=== PATIENT | female | born 1945 | race Caucasian/White ===

== ENCOUNTER 2017-06-26 14:12 | Emergency (ER) | payer MEDICARE, MEDICAID, SELFPAY ==
[2017-06-26 14:13] VITALS: BP 134/67; PULSE 72; RESP 18; TEMP 36.1; O2SAT 99; BMI 31.8
--- NOTE | 2017-06-26 14:55 | EKG12_ITS ---
Test Reason : CP Blood Pressure : / mmHG Vent. Rate : 075 BPM Atrial Rate : 075 BPM P-R Int : 112 ms QRS Dur : 090 ms QT Int : 380 ms P-R-T Axes : 011 027 052 degrees QTc Int : 424 ms Normal sinus rhythm Normal ECG When compared with ECG of 28-FEB-2017 13:09, No significant change was found Confirmed by DORIS BALDERRAMA, RHONA ([id number]), dictionary editor MARS CUELLO ([id number]) on 07/05/2017 2:39:54 PM Referred By: DODIE/JENN Confirmed By:RHONA GEORGE MD
--- NOTE | 2017-06-26 14:55 | RAD_ITS ---
STUDY: X-RAY CHEST REASON FOR EXAM: Female, 71 years old. Right-sided chest pain. Cough. TECHNIQUE: PA and lateral views of the chest. COMPARISON: None. FINDINGS: EKG electrodes are seen. Mild elevation of the right hemidiaphragm. There is no demonstrated pleural abnormality. Normal size heart. Normal mediastinum and mark. Normal visualized pulmonary arteries. Normal visualized aortic arch and descending thoracic aorta. There is demineralization of the osseous structures. Normal visualized ribs, clavicles, and shoulders. There is no demonstrated abnormality of the visualized soft tissue structures of the upper abdomen. RAD/Chest PA and Lateral IMPRESSION: No acute abnormality is seen. Electronically Signed: Fortino Rangel MD at 15:23 EST Tel [phone], Service support ,
[2017-06-26 15:17] LABS: Absolute Lymphocyte Count 2.71 X10^3/ul (0.83-4.51); Absolute Neutrophil Count 8.6 X10^3/uL (2.0-7.7); Basophil# 0.01 X10^3/uL; Basophil% 0.1 % (0-1); Eosinophil# 0.23 X10^3/uL; Eosinophils% 1.9 % (0-5); Hematocrit 39.1 % (37-47); Hemoglobin 12.3 g/dl (12.0-15.0); Lymphocyte # 2.71 X10^3/ul (4.0); Lymphocyte % 22.5 % (19-41); Mean Corp Hgb Conc 31.5 g/gl (32-36); Mean Corpuscular Hgb 26.1 pg (27.0-32.0); Mean Platelet Vol. 10.5 fl (6.2-12.0); Monocyte# 0.39 X10^3/uL; Monocyte% 3.2 % (0-10); Neutrophil # 8.59 X10^3/uL (2.7-7.7); Neutrophil % 71.6 % (47-70); POSITIVE COUNT NO; POSITIVE DIFFERENTIAL NO; POSITIVE MORPHOLOGY NO; Platelet Count 338 K/mm3 (150-450); RBC Distribution Width CV 15.3 % (11.6-14.6); RBC Distribution Width SD 46.4 fl (35.1-43.9); Red Blood Count 4.71 M/mm3 (4.2-5.4)
[2017-06-26 15:26] LABS: Anion Gap 6 (5-15); BUN 43 mg/dL (7-18); BUN/Creat Ratio 29.3 RATIO (10-20); Calcium,Total 9.2 mg/dL (8.5-10.1); Chloride 103 mmol/L (98-107); Creatinine, Serum 1.47 mg/dL (0.55-1.02); EST Glomerular Filtration Rate 37 mL/min (>60); Est Glom Filt Rate - Afr Amer 45 mL/min (>60); Estimated Creatinine Clearance 26.87 ml/min; Glucose 70 mg/dL (74-106); Potassium 3.6 mmol/L (3.5-5.1); Sodium Level 138 mmol/L (136-145)
--- NOTE | 2017-06-26 15:44 | ED.DCSUM_ITS ---
- ER Visit Summary Date of Service: 06/26/17 Chief Complaint: Constant right-sided chest pain, dyspnea, cough or 1-2 weeks. History of Present Illness: The patient is a 71 F who states she is gotten no better in spite of treatment. She complains of continuous right-sided chest pain that has a pleuritic component for the past 2 days. She does have a cough. Her cough is productive. She has never smoked. She does complain of rhinorrhea, nasal congestion sore throat. She denies any leg pain, swelling or discoloration. She denies history of cardiac disease. She does have history of type 1 diabetes, hypertension and GERD. Patient was diagnosed with influenza 3 weeks ago. 2 weeks ago she was diagnosed with bronchitis. She states she is gotten no better. Patient did check her blood sugar yesterday and her blood sugar was 10 5 in the morning 130 2 in the evening. She has no symptoms of hyperglycemia i.e. polyuria, polydipsia, nocturia or polyphagia. Physical Examination: Elderly woman who appears ill but not toxic. Head is atraumatic normocephalic. Pupils are equal round reactive. Extraocular muscles are intact. TMs are pearly white with landmarks noted. Nares patent with clear drainage. Posterior pharynx without erythema or exudate. Uvula is midline. There is no dysphonia or dysphasia. Trachea is midline. There is no stridor with auscultation of the neck. Heart is regular without murmur, gallop or rub. S1 and S2 are normal. Lungs are clear to auscultation with good movement of air bilaterally. Abdomen is soft nontender with no palpable subtle mass abdominal bruit. There is no asymmetry, swelling, discoloration, leg vein distention, palpable cords or tenderness along the distribution of the deep venous system. Patient did report pain to palpation right leg. She states this is a chronic issue secondary to her back surgery. She also complained of anterior left knee pain which she reports is secondary to total knee arthroplasty many years ago as well. Test Results: EKG was obtained per nursing protocol reveals a sinus rhythm and rate of 75 and is normal. Two-view chest x-ray reveals minimal chronic changes. Cardiac silhouette is normal.'s notes congestive heart failure. There is no infiltrate or effusion. White count is slightly elevated 12.0 thousand with 72 segs and no bands. Electrode panel marked for glucose of 70, BUN 43 and creatinine 1.47. Creatinine on March 02, 2015 was 1.25. Troponin with 48 hours of continuous pain is 0.02, which is negative Emergency Department Course and Treatment: Since patient is diabetic a BMP was obtained to assess blood sugar as well as BUN and creatinine. CBC was obtained to assess for anemia since she complains of dyspnea. EKG to rule out cardiac ischemia since she is elderly with history of diabetes and hypertension. She has an atypical presentation. Because she reports cough for 2 weeks chest x- ray was obtained to evaluate for infiltrate. Treatment Plan: Continue symptomatic treatment and follow-up with PCP if not better in 1-2 weeks Disposition: Discharge to home Impression: 1. Viral upper respiratory infection with recent diagnosis of influenza 2. Right sided chest pain 3. History of type 1 diabetes 4. History of hypertension 5. History of GERD 6. History of diabetic neuropathy This note was generated with [employer] dictation software. It may contain incorrect words, spelling, and punctuation that were not noted in review of the chart prior to signing ED Disposition - Plan for ED Patient: Disposition: Home or Assisted Living Chief Complaint: Weakness Instructions: ED Chest Pain NonCardiac Referrals: Juhi De Jesus MD [Primary Care Provider] - 10-14 Days if not better
[2017-06-26 15:56] VITALS: BP 118/74; PULSE 70; RESP 16; O2SAT 100
== END 2017-06-26 15:57 | disposition home or self-care (01) ==
PROVIDERS: Emergency Provider Emergency Medicine; Family Provider Family Medicine; PCP Family Medicine
DX: J06.9 Acute upper respiratory infection, unspecified (principal); R07.89 Other chest pain; I10 Essential (primary) hypertension; K21.9 Gastro-esophageal reflux disease without esophagitis; E10.40 Type 1 diabetes mellitus with diabetic neuropathy, unspecified; Z79.4 Long term (current) use of insulin; Z79.82 Long term (current) use of aspirin; Z79.899 Other long term (current) drug therapy; Z87.09 Personal history of other diseases of the respiratory system
CPT/HCPCS: 71046; 80048; 84484; 85025; 93005; 99285

== ENCOUNTER → 2017-07-14 14:17 | Outpatient (CLI) | payer MEDICARE, MEDICAID, SELFPAY ==
[2017-07-14 16:05] LABS: Hemoglobin A1c 8.1 % (4.2-6.3); Microalbumin,Random Urine 7.9 mg/L (NO RANGE EST.); Microalbumin:Creatinine Ratio 5.6 mg/g CRE (<30 mg/g CRE)
[2017-07-14 16:36] LABS: ALB/GLOB Ratio 0.9 RATIO (0.9-2.4); AST(SGOT) 51 U/L (15-37); Alanine Aminotransfer ALT/SGPT 37 U/L (13-56); Albumin, Serum 3.6 g/dL (3.2-5.0); Alkaline Phosphatase 110 U/L (45-117); Anion Gap 7 (5-15); BUN 18 mg/dL (7-18); BUN/Creat Ratio 15.8 RATIO (10-20); Calcium,Total 8.7 mg/dL (8.5-10.1); Chloride 106 mmol/L (98-107); Cholesterol 220 mg/dL (200); Creatinine, Serum 1.14 mg/dL (0.55-1.02); EST Glomerular Filtration Rate 50 mL/min (>60); Est Glom Filt Rate - Afr Amer 60 mL/min (>60); Glucose 112 mg/dL (74-106); High Density Lipoprotein 39 mg/dL; Potassium 3.7 mmol/L (3.5-5.1); Protein, Total 7.6 g/dL (6.4-8.2); Sodium Level 141 mmol/L (136-145); Thyroid Stim Hormone (TSH) 1.11 uIU/mL (0.358-3.74); Triglycerides 817 mg/dL
== END ==
PROVIDERS: Family Provider Family Medicine; PCP Family Medicine; Visit Provider Family Medicine
DX: E11.9 Type 2 diabetes mellitus without complications (principal); E04.9 Nontoxic goiter, unspecified
CPT/HCPCS: 36415; 80053; 80061; 82043; 82570; 83036; 84443

== ENCOUNTER 2017-10-18 20:41 | Emergency (ER) | payer MEDICARE, MEDICAID, SELFPAY ==
[2017-10-18 20:42] VITALS: BP 146/77; PULSE 75; RESP 16; TEMP 36.7; O2SAT 98; BMI 31.5
--- NOTE | 2017-10-18 21:48 | US_ITS ---
STUDY: VENOUS DOPPLER ULTRASOUND - RIGHT LOWER EXTREMITY REASON FOR EXAM: Female, 72 years old. Posterior lateral knee pain. TECHNIQUE: Ultrasound evaluation of the deep vein system to include mitchell-scale imaging and compression was performed. Mitchell-scale imaging and Doppler sonographic evaluation, including duplex spectral analysis and qualitative color flow sonography, was performed. COMPARISON: None. FINDINGS: Common Femoral Vein: Normal compression, spontaneity and augmentation. Normal color Doppler. Common Femoral Vein/Greater Saphenous Junction: Normal compression without internal echoes. Deep Femoral Vein: Not visualized. Femoral Proximal: Normal compression without internal echoes. Femoral Middle: Normal compression, spontaneity and augmentation. Normal color Doppler. Femoral Distal: Normal compression without internal echoes. Popliteal Vein: Normal compression, spontaneity and augmentation. Normal color Doppler. Posterior Tibial Vein: Normal compression without internal echoes. Peroneal Vein: Normal compression without internal echoes. Within the posterior right knee is anechoic region measuring 1.7 x 3.3 x 2.0 cm with Lopez's cyst not excluded. US/Venous Duplex Imag/Limited/Uni IMPRESSION: 1. No evidence of deep venous thrombosis. 2. Hypoechoic region of the posterior knee, clinically correlate for Lopez's cyst. Electronically Signed: Terry Cho DO at 22:31 EDT , Service support ,
[2017-10-18] MEDS: HYDROcodone Bitartrate/Apap 5/325 Tablet PO ×2 (21:49→23:31)
--- NOTE | 2017-10-18 22:47 | ED.VISSUMM ---
- ER Visit Summary Date of Service: 10/18/17 Chief Complaint: Leg pain History of Present Illness: The patient is a 72 F with right leg pain for the last 2 weeks, significant a worse tonight. Patient states she initially had a swollen area on the lateral side of her right knee. Pain is now behind the right knee and up into the medial distal thigh. She has chronic nerve pain in her right leg and typically takes Lyrica. She has chronic right foot drop. She has recurrent gout in her right foot as well. Physical Examination: Vital signs are unremarkable. Patient's lying in bed no acute distress. Head and neck examination is unremarkable. Heart is regular rate and rhythm. Lung sounds are clear. Abdomen is soft nontender. Right lower extremity examination reveals tenderness of the medial distal right thigh. She also has tenderness of the posterior right knee by do not palpate any masses. She has palpable distal pulses. She has very minimal erythema at the first MTP joint of the right foot. Test Results: Venous ultrasound of the right leg reveals evidence of a Lopez's cyst but no evidence of DVT. Emergency Department Course and Treatment: Patient was given 1 tab of [place] here. She be given a short course of prednisone and be written for a short course of [place]. She has an appointment with Dr. Gannon early next week. Treatment Plan: [] Disposition: Discharge Impression: Lopez's cyst right knee This note was generated with [employer] dictation software. It may contain incorrect words, spelling, and punctuation that were not noted in review of the chart prior to signing ED Disposition - Plan for ED Patient: Chief Complaint: Lower Extremity Injury Referrals: Марина Weir MD [Primary Care Provider] -
--- NOTE | 2017-10-18 22:48 | ED.DEP ---
ED Disposition - Plan for ED Patient: Disposition: Home or Assisted Living Chief Complaint: Lower Extremity Injury Instructions: ED Cyst Lopez Prescriptions: Hydrocodone Bitart/Apap 5-325 [[place] 5MG-325MG] 1 tablet PO Q6H PRN PRN 3 Days #10 tablet PRN Reason: Pain Prednisone [Deltasone] 60 mg PO DAILY #15 tab Referrals: Марина Weir MD [Primary Care Provider] - Smith Gannon MD [STAFF PHYSICIAN] - Keep Aaron appointment
--- NOTE | 2017-10-18 22:52 | DCINST.ED_ITS ---
ED Disposition - Plan for ED Patient: Disposition: Home or Assisted Living Chief Complaint: Lower Extremity Injury Instructions: ED Cyst Lopez Prescriptions: Hydrocodone Bitart/Apap 5-325 [[place] 5MG-325MG] 1 tablet PO Q6H PRN PRN 3 Days # 10 tablet PRN Reason: Pain Prednisone [Deltasone] 60 mg PO DAILY #15 tab Referrals: Марина Weir MD [Primary Care Provider] - Smith Gannon MD [STAFF PHYSICIAN] - Keep Aaron appointment
[2017-10-18 23:26] VITALS: BP 130/58; PULSE 64; RESP 18; O2SAT 98
[2017-10-18] MEDS: predniSONE 20 MG Tablet 60 MG PO (23:30)
== END 2017-10-18 23:33 | disposition home or self-care (01) ==
PROVIDERS: Emergency Provider Emergency Medicine; Family Provider Family Medicine; PCP Family Medicine
DX: M71.21 Synovial cyst of popliteal space [Baker], right knee (principal); M10.9 Gout, unspecified; I12.9 Hypertensive chronic kidney disease with stage 1 through stage 4 chronic kidney disease, or unspecified chronic kidney disease; E11.22 Type 2 diabetes mellitus with diabetic chronic kidney disease; N18.9 Chronic kidney disease, unspecified; Z79.82 Long term (current) use of aspirin; Z79.4 Long term (current) use of insulin; Z79.899 Other long term (current) drug therapy
CPT/HCPCS: 93971; 99283

== ENCOUNTER → 2017-10-25 12:13 | Outpatient (CLI) | payer MEDICARE, MEDICAID, SELFPAY ==
[2017-10-25 13:31] LABS: Hemoglobin A1c 8.5 % (4.2-6.3); Vitamin B12 602 pg/mL (211-911)
[2017-10-25 13:33] LABS: Rheumatoid Factor < 10.0 IU/mL (<15); Thyroid Stim Hormone (TSH) 1.33 uIU/mL (0.358-3.74)
[2017-10-26 12:09] LABS: SJOGREN'S Anti-SS-A test < 0.2 AI (0.0-0.9); SJOGREN'S Anti-SS-B test < 0.2 AI (0.0-0.9)
[2017-10-26 13:49] LABS: ANTINUCLEAR ANTIBODIES DIRECT Negative (Negative)
[2017-10-27 16:10] LABS: Albumin 3.7 g/dL (2.9-4.4); Alpha-1-Globulin, Ur 3.4 % (.); Alpha-1-Globulins 0.2 g/dL (0.0-0.4); Alpha-2-Globulins 0.8 g/dL (0.4-1.0); Beta Globulin, Ur 37.3 % (.); Gamma Globulin 0.6 g/dL (0.4-1.8); Gamma Globulin, Ur 21.3 % (.); Immunoglobulin A 222 mg/dL (64-422); Immunoglobulin G 570 mg/dL (700-1600); Immunoglobulin M 55 mg/dL (26-217); M-Spike, Ur % Not Observed % (Not Observed); PROEL- TOTAL PROTEIN 6.3 g/dL (6.0-8.5); Total Protein, Ur 10.3 mg/dL (Not Estab.)
[2017-10-28 09:35] LABS: Cytoplasmic Ab (C-ANCA) <1:20 titer (Neg:<1:20); Perinuclear Ab (P-ANCA) <1:20 titer (Neg:<1:20)
== END ==
PROVIDERS: Family Provider Family Medicine; PCP Family Medicine; Visit Provider Psychiatry & Neurology Neurology
DX: E11.40 Type 2 diabetes mellitus with diabetic neuropathy, unspecified (principal)
CPT/HCPCS: 36415; 82607; 82784; 83036; 84165; 84166; 84443; 86038; 86235; 86256; 86334; 86335; 86431

== ENCOUNTER 2017-10-30 12:14 | Observation (INO) | payer MEDICARE, MEDICAID, SELFPAY ==
[2017-10-30 12:14] VITALS: BP 166/91; PULSE 103; RESP 18; TEMP 36.4; O2SAT 99; BMI 31.2
--- NOTE | 2017-10-30 12:49 | EKG12_ITS ---
Test Reason : Blood Pressure : / mmHG Vent. Rate : 084 BPM Atrial Rate : 084 BPM P-R Int : 130 ms QRS Dur : 080 ms QT Int : 362 ms P-R-T Axes : 044 014 067 degrees QTc Int : 427 ms Normal sinus rhythm Normal ECG Confirmed by RHONA GEORGE MD ([id number]), telegraph editor EZRA ERVIN ([id number]) on 11/02/2017 4:23:17 PM Referred By: Armando North Confirmed By:RHONA GEORGE MD
--- NOTE | 2017-10-30 12:53 | ED.DCSUM_ITS ---
- ER Visit Summary Date of Service: 10/30/17 Chief Complaint: Right foot pain, generalized weakness History of Present Illness: The patient is a 72 F presenting with right foot pain. She states this has been a chronic problem but has been worse over the past several days. She saw Dr. North on Monday. She was changed from Lyrica to Cymbalta. This has not improved her pain. She has a history of gout and right foot nerve damage secondary to previous back surgery. She has an appointment with pain management tomorrow. She was seen in the ED for this recently and was given [place]. She has run out of that prescription but she has a prescription waiting for her at the pharmacy that was written by her primary care physician. She has been taking Tylenol at home. She denies fever. She complains of nausea and generally not feeling well. She complains of dizziness and near syncope. She denies chest pain or shortness of breath. Physical Examination: Vitals are stable. Patient is afebrile. Alert no acute distress. HEENT exam is unremarkable. Neck is supple. Lungs are clear and equal bilaterally. Heart is regular rate and rhythm. Abdomen is soft nontender nondistended. Extremities diffuse right midfoot tenderness and tenderness over 1st MTP with no erythema or warmth. Palpable pulses. Skin is warm and dry. No focal neurologic deficit. Remainder of exam is unremarkable. Emergency Department Course and Treatment: Patient is given morphine, Zofran. CBC unremarkable. Chemistries show BUN 34, creatinine 2.16. This is elevated from 1.14. previously. Urinalysis is unremarkable. Troponin 0.039. She is given IV fluids. Discussed with the hospitalist for admission. Disposition: Admission Impression: CHELI, chronic right foot pain This note was generated with [employer] dictation software. It may contain incorrect words, spelling, and punctuation that were not noted in review of the chart prior to signing ED Disposition - Plan for ED Patient: Chief Complaint: General Illness Referrals: Марина Weir MD [Primary Care Provider] -
--- NOTE | 2017-10-30 12:59 | PCA ---
NO OLD EKG
[2017-10-30] MEDS: Ondansetron 4 MG/2 ML Vial IV (13:08)
[2017-10-30] MEDS: Morphine 4 MG/ML Syringe IV ×2 (13:09→21:26)
[2017-10-30 13:20] LABS: Bacteria 0 SEEN /hpf (None Seen); Mucous, Urine 0 SEEN /hpf (<or=2+); Red Blood Cells-Urine 0 SEEN /hpf (0-5)
[2017-10-30 13:23] LABS: Absolute Lymphocyte Count 3.27 X10^3/ul (0.83-4.51); Absolute Neutrophil Count 6.5 X10^3/uL (2.0-7.7); Basophil# 0.03 X10^3/uL; Basophil% 0.3 % (0-1); Color, Urine Yellow (Yellow); Eosinophils% 1.8 % (0-5); Glucose, Dipstick Normal (Normal); Hematocrit 45.8 % (37-47); Hemoglobin 14.4 g/dl (12.0-15.0); Ketone-Dipstick 5 mg/dl (Negative); Leukocyte Esterase-Dipstick 100 /ul (Negative); Lymphocyte # 3.27 X10^3/ul (4.0); Lymphocyte % 30.1 % (19-41); Mean Corp Hgb Conc 31.4 g/gl (32-36); Mean Corpuscular Hgb 26.2 pg (27.0-32.0); Mean Corpuscular Volume 83.3 fL (81-99); Mean Platelet Vol. 11.4 fl (6.2-12.0); Monocyte# 0.83 X10^3/uL; Monocyte% 7.6 % (0-10); Neutrophil # 6.51 X10^3/uL (2.7-7.7); Neutrophil % 60.1 % (47-70); Nitrite-Dipstick Negative (Negative); Occult Blood-Urine Negative /ul (Negative); Platelet Count 294 K/mm3 (150-450); Protein-Dipstick 15 mg/dl (Negative); RBC Distribution Width CV 15.6 % (11.6-14.6); RBC Distribution Width SD 47.1 fl (35.1-43.9); Urine Clarity Cloudy (Clear); Urine Urobilinogen 1 mg/dl (Normal); White Blood Count 10.9 K/mm3 (4.4-11.0)
[2017-10-30 13:24] LABS: POSITIVE COUNT NO; POSITIVE DIFFERENTIAL NO; POSITIVE MORPHOLOGY NO; Urine Bilirubin Dipstick 1 mg/dL (Negative)
[2017-10-30 13:31] LABS: Hyaline Cast 0-5 SEEN /lpf (0-5); Squamous Epithelial Cells - UA 0-5 SEEN /hpf (5-10); Transitional Epithelial - Ur 0-5 SEEN /hpf (0-5); White Blood Cells 0-5 SEEN /hpf (0-5)
[2017-10-30 13:39] LABS: Anion Gap 10 (5-15); BUN 34 mg/dL (7-18); BUN/Creat Ratio 15.7 RATIO (10-20); Calcium,Total 10.2 mg/dL (8.5-10.1); Chloride 99 mmol/L (98-107); Creatinine, Serum 2.16 mg/dL (0.55-1.02); EST Glomerular Filtration Rate 24 mL/min (>60); Est Glom Filt Rate - Afr Amer 29 mL/min (>60); Estimated Creatinine Clearance 18.03 ml/min; Glucose 79 mg/dL (74-106); Potassium 3.5 mmol/L (3.5-5.1); Sodium Level 139 mmol/L (136-145)
[2017-10-30] MEDS: 0.9% Normal Saline 1,000 ML 999 ML IV (14:31)
[2017-10-30 16:21] VITALS: BMI 31.5
[2017-10-30 16:30] VITALS: BMI 31.5
[2017-10-30] MEDS: 0.9% Normal Saline 1,000 ML 125 ML IV (16:56)
--- NOTE | 2017-10-30 16:59 | PCM.HP.STD ---
Problem List (1) Osteoporosis Status: Chronic Qualifiers: Comment: Patient discontinued her biphosphanate Does not explain why. Wishes to discuss diabetes and thyroid today. (2) Controlled type 2 diabetes mellitus with insulin therapy Status: Chronic Comment: Reports long standing control until recent illness. Today she reports she used to use her sliding scale. We discussed using this anytime she become ill to avoid her having high BG. Today her Bg have extrem varied numbers. She does mention she goes to exercise 3 times a week which probably causes her low BG days. She also has two different breakfast regimens. One would need more insulin than the other as it contins fruit and the other is mostly protin. We discussed these issues and she is enc to make insulin adjustment for exercise and diet changes. (3) Thyroid goiter Status: Chronic Comment: Patient has known thyroid goiter . Has multiple nodules and I will refer to surgeon (4) Hyperlipemia Status: Chronic (5) GERD (gastroesophageal reflux disease) Status: Chronic (6) Gout Status: Chronic (7) HTN (hypertension) Status: Chronic History of Present Illness Date of Admission: 10/30/17 Chief Complaint: Right foot pain, weakness. The patient is a 72 year old F who presents with weakness, worsening since this past Monday with associated lightheadedness. She denies recent illness. Denies chest pain, shortness of breath. States lightheadedness is worse with standing. Denies fever, chills. Complains of ongoing right great toe pain which has been occurring for the past 2 years. She denies injury to right foot. She has seen both podiatry and neurology as outpatient for this. Patient denies nausea, vomiting, diarrhea. Denies syncope or presyncope. Patient denies falls at home. Her past medical history includes type 2 diabetes mellitus, hypertension, GERD, hyperlipidemia, gout, thyroid goiter. Past Medical History Past Medical History (Chronic Problems): Chronic Problems (Last Reviewed 09/28/17 @ 09:53 by Marysol Brown) Hyperlipemia (Chronic) GERD (gastroesophageal reflux disease) (Chronic) Gout (Chronic) HTN (hypertension) (Chronic) Osteoporosis (Chronic) Patient discontinued her biphosphanate Does not explain why. Wishes to discuss diabetes and thyroid today. Controlled type 2 diabetes mellitus with insulin therapy (Chronic) Reports long standing control until recent illness. Today she reports she used to use her sliding scale. We discussed using this anytime she become ill to avoid her having high BG. Today her Bg have extrem varied numbers. She does mention she goes to exercise 3 times a week which probably causes her low BG days. She also has two different breakfast regimens. One would need more insulin than the other as it contins fruit and the other is mostly protin. We discussed these issues and she is enc to make insulin adjustment for exercise and diet changes. Thyroid goiter (Chronic) Patient has known thyroid goiter . Has multiple nodules and I will refer to surgeon Medical History: Medical History (Last Reviewed 09/28/17 @ 09:53 by Marysol Brown) Arthritis M19.90 Back problem M53.9 Carpal tunnel syndrome G56.00 Cataracts, bilateral H26.9 Chronic renal insufficiency N18.9 Diabetes E11.9 Dx : 2009 Last exacerbation : DKA : x1 Hypoglycemic episode : never ER visit : x1 Goiter E04.9 Gout M10.9 IBS (irritable bowel syndrome) K58.9 Neuropathy G62.9 Seasonal allergies J30.2 cataract surgery HTN (hypertension) I10 Allergies linagliptin [From Tradjenta] Allergy (Verified 10/30/17 12:16) Hives oxycodone [From OxyContin] Allergy (Verified 10/30/17 12:16) Rash Home Medications: Ambulatory Orders Medication Instructions Recorded Benazepril/Hydrochlorothiazide 1 tablet PO DAILY 02/21/17 [Benazepril-Hctz 20-25 mg Tab] Cholecalciferol (VIT D3) [Vitamin 5,000 unit PO DAILY 02/21/17 D3] Omeprazole [Prilosec] 1 capsule PO DAILY 02/21/17 allopurinol 100 mg tablet 1 tab PO BID tab 08/15/17 ergocalciferol (vitamin D2) 50,000 1 cap PO QWEEK 08/15/17 unit capsule insulin detemir (U-100) 100 40 unit SC QHS ml 08/15/17 unit/mL (3 mL) subcutaneous pen insulin lispro (U-100) 100 unit/mL See Label Instructions SC TID ml 08/15/17 subcutaneous pen omega-3 fatty acids 1,000 mg 1 cap PO QDAY 08/15/17 capsule potassium 99 mg tablet 99 mg PO QDAY 08/15/17 aspirin 81 mg tablet,delayed 2 tab PO BID tab 09/28/17 release Blood Sugar Diagnostic [Prodigy No 0 applic .ROUTE .MEDSUPPLY 10/18/17 Coding strips] Blood-Glucose Meter [Prodigy Voice 0 applic .ROUTE .MEDSUPPLY 10/18/17 Glucose Meter kit] Hydrocodone Bitart/Apap 5-325 1 tablet PO Q6H PRN PRN 3 Days #10 10/18/17 [[place] 5MG-325MG] tablet Caltrate Gummy Bites 1 tablet PO DAILY 10/30/17 Duloxetine Hcl [Cymbalta] 1 tablet PO DAILY 10/30/17 Folic Acid 1 tablet PO DAILY 10/30/17 Furosemide [Lasix] 1 tablet PO DAILY 10/30/17 Niacin [Niaspan] 1 tablet PO QHS 10/30/17 Surgical History: Surgical History (Last Reviewed 10/30/17 @ 17:38 by ANA Whitmore) H/O tubal ligation Z98.51 History of back surgery Z98.890 Hx of appendectomy Z90.49 Hx of cholecystectomy Z90.49 S/P carpal tunnel release Z98.890 S/P knee replacement Z96.659 Surgical History: cataract Psychiatric History: No 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 hx [employer] History: No pertinent [employer] history Lives: Alone Smoking Status: Never smoker Alcohol: None Drugs: None - *Family History Maternal Family History: Family History (Last Reviewed 10/30/17 @ 17:40 by ANA Whitmore) Unknown Alcoholism Arthritis Asthma Depression Hypertension High cholesterol Kidney disease Severe allergy Diabetes Paternal Family History: Family History (Last Reviewed 10/30/17 @ 17:40 by ANA Whitmore) Unknown Alcoholism Arthritis Asthma Depression Hypertension High cholesterol Kidney disease Severe allergy Diabetes Review of Systems Constitutional: Reports: Weakness. Denies: Chills, Fever, Weight Change HEENT: Denies: Head Aches, Sinus Congestion, Sinus Drainage Cardiovascular: Reports: Light Headedness. Denies: Chest Pain, Edema, Palpitations, Syncope Respiratory: Denies: Cough, Shortness of breath at rest, Sputum production Gastrointestinal: Denies: Abdominal Pain, Nausea, Vomiting Genitourinary: Denies: Dysuria Musculoskeletal: Reports: Joint Pain - Right great toe/top of right foot.. Denies: Joint Tenderness Skin: Denies: Rash, Wounds Neurological: Denies: Numbness, Tingling, Focal weakness Psychiatric: Denies: Anxiety, Depression, Homicidal Ideations, Suicidal Ideations Hematologic/ Lymphatic: Denies: Easy Bruising, Easy Bleeding VTE Information - Inpt Only VTE Present on Admission: No VTE Mechan Device Prophylaxis: None VTE Pharm Prophylaxis ordered?: Yes - Physical Exam General: Alert, Oriented x3, Cooperative, No apparent distress HEENT: Atraumatic, PERRLA, EOMI, Normocephalic Neck: Supple, No JVD, Negative Carotid Bruits Lungs: Clear to auscultation, Normal air movement Cardiovascular: Regular rate, Regular Rhythm, Normal S1, Normal S2, No murmurs Abdomen: Bowel Sounds Present, Soft, Non Tender, Non-Distended Extremities: No clubbing, No cyanosis, No edema, Capillary Refill Less than 3 Seconds Skin: No rashes, No breakdown Musculoskeletal: No Tenderness to Palpation of Joints or Extremities Neurological: Cranial nerves II-XII grossly intact, Neuro grossly intact Psych/Mental Status: Normal Affect, Appropriate Vital Signs Temp Pulse Resp BP Pulse Ox 97.6 F L 103 H 18 166/91 H 99 10/30/17 12:14 10/30/17 12:14 10/30/17 12:14 10/30/17 12:14 10/30/17 12:14 Weight: 76.9 kg Body Mass Index (BMI) 31.5 Assessment/Plan 1. Acute Kidney Injury on CKD stage III-suspect secondary to dehydration. Trend BMP. IV fluids. 2. Generalized weakness/lightheadedness-suspect secondary to #1. IV fluids. PT/OT. Obtain orthostatic vitals. 3. Right foot pain- appears chronic from records. Following with neurology as outpatient. Discussed with Dr. North. Increase Cymbalta to 60 mg daily. PT/OT. PRN norco for pain. Patient states she has never had an x-ray of the right foot. 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 Obtain x-ray of right foot if no previous imaging. 4. Controlled Type 2 Diabetes Mellitus-hemoglobin A1c 10/25/2017 8.5%. Patient follows with CHAR do. Accu-Cheks before meals at bedtime with sliding scale insulin. 5. Hypertension-stable, continue benazepril/HCTZ regimen. Continue to monitor. 6. Hyperlipidemia-not on statin. Patient takes niacin nightly. 7. GERD-continue PPI. 8. Gout? Questionable- on allopurinol, continue. 9. Thyroid Goiter-TSH 10/25/2017 1.33. 10. Osteoporosis-continue home supplement regimen. DVT prophylaxis-Heparin SC This patient was seen by ANA Whitmore under the supervision of Dr. Waldron.
[2017-10-30 17:06] VITALS: BP 158/81; PULSE 80; RESP 16; TEMP 36.8; O2SAT 97
[2017-10-30] MEDS: Aspirin E.C. 81 MG Tablet 162 MG PO (17:50)
[2017-10-30] MEDS: HYDROcodone Bitartrate/Apap 5/325 Tablet PO (17:50)
[2017-10-30 18:01] LABS: Bedside Glucose 123 mg/dL (70-110)
--- NOTE | 2017-10-30 18:50 | RAD_ITS ---
STUDY: X-RAY - RIGHT FOOT CLINICAL: Female, 72 years old. Pain TECHNIQUE: 3 view(s) of the foot. COMPARISON: None. FINDINGS: Normal talus and tarsal bones. Small plantar calcaneal spur. Normal visualized subtalar, talonavicular, calcaneocuboid, tarsal and tarsometatarsal articulations. Normal metatarsi. Normal metatarsophalangeal joint of the great toe. Normal tibial and fibular sesamoid bones. Normal interphalangeal joint of the great toe. Normal phalanges of the great toe. Normal second through fifth metatarsophalangeal joints. Normal interphalangeal joints and phalanges of the lesser toes. The soft tissue structures are unremarkable. RAD/Foot min 3 Views IMPRESSION: No fracture or dislocation. Small plantar calcaneal spur. Electronically Signed: Shahzad Arreguin DO at 21:14 EDT , Service support ,
[2017-10-30 19:02] VITALS: BP 124/63; BP 127/67; BP 148/54; PULSE 81; PULSE 93; PULSE 99
[2017-10-30 20:43] VITALS: BP 145/58; PULSE 78; RESP 20; TEMP 36.7; O2SAT 96
[2017-10-30] MEDS: Allopurinol 100 MG Tablet PO (21:25)
[2017-10-30] MEDS: Insulin Lispro 100 UNIT/ML INSULN.PEN SC (21:25)
[2017-10-30] MEDS: Heparin Injection (Vial) 5,000 UNIT/ML VIAL 5000 UNIT SC (21:26)
[2017-10-30 22:41] LABS: Bedside Glucose 184 mg/dL (70-110)
[2017-10-31] MEDS: 0.9% Normal Saline 1,000 ML 125 ML IV ×2 (01:10→09:12)
[2017-10-31 01:11] VITALS: BP 133/62; PULSE 73; RESP 16; TEMP 36.7; O2SAT 96
[2017-10-31 06:06] VITALS: BP 104/82; BP 126/66; BP 142/63; PULSE 74; PULSE 78; PULSE 84
[2017-10-31] MEDS: Heparin Injection (Vial) 5,000 UNIT/ML VIAL 5000 UNIT SC ×2 (06:25→14:09)
[2017-10-31 06:47] LABS: Anion Gap 7 (5-15); BUN 31 mg/dL (7-18); BUN/Creat Ratio 19.5 RATIO (10-20); Calcium,Total 8.1 mg/dL (8.5-10.1); Chloride 107 mmol/L (98-107); Creatinine, Serum 1.59 mg/dL (0.55-1.02); EST Glomerular Filtration Rate 34 mL/min (>60); Est Glom Filt Rate - Afr Amer 41 mL/min (>60); Estimated Creatinine Clearance 24.49 ml/min; Glucose 36 mg/dL (74-106); Potassium 3.3 mmol/L (3.5-5.1); Sodium Level 141 mmol/L (136-145)
[2017-10-31 06:50] LABS: Bedside Glucose 51 mg/dL (70-110)
[2017-10-31 06:50] LABS: Bedside Glucose 70 mg/dL (70-110)
[2017-10-31 07:06] LABS: Bedside Glucose 73 mg/dL (70-110)
[2017-10-31 09:04] VITALS: BP 137/47; PULSE 79; RESP 18; TEMP 37.1; O2SAT 98
[2017-10-31] MEDS: Aspirin E.C. 81 MG Tablet 162 MG PO (09:07)
[2017-10-31] MEDS: Lisinopril 20 MG Tablet PO (09:07)
[2017-10-31] MEDS: hydroCHLOROthiazide 25 MG Tablet PO (09:07)
[2017-10-31] MEDS: Allopurinol 100 MG Tablet PO (09:08)
[2017-10-31] MEDS: Pantoprazole Sodium 20 MG Tablet PO (09:08)
[2017-10-31] MEDS: DULoxetine Hcl 30 MG Capsule 60 MG PO (09:08)
[2017-10-31] MEDS: HYDROcodone Bitartrate/Apap 5/325 Tablet PO (09:11)
[2017-10-31 11:20] LABS: Bedside Glucose 176 mg/dL (70-110)
[2017-10-31] MEDS: Insulin Lispro 100 UNIT/ML INSULN.PEN SC (11:22)
[2017-10-31] MEDS: oxyCODONE 5 MG Tablet PO (11:25)
[2017-10-31 14:20] VITALS: BP 115/48; PULSE 71; RESP 16; TEMP 36.8; O2SAT 96
--- NOTE | 2017-10-31 14:56 | DCINST_ITS ---
- Discharge Diagnoses Current Active Problems: Current Active and Chronic Problems (Last Reviewed 09/28/17 @ 09:53 by Marysol Brown) Hyperlipemia (Chronic) GERD (gastroesophageal reflux disease) (Chronic) Gout (Chronic) HTN (hypertension) (Chronic) You will use the following diet at home:: Calorie/Carbohydrate Controlled ( specify 1200, 1400, etc) Discharge Activity: Return to Normal Activity Call your doctor if you observe: Fever of 101 or Higher, Shortness of breath, Dizziness, Fainting spells, Chest pain Allergies/Adverse Reactions: Allergies linagliptin [From Tradjenta] Allergy (Verified 10/30/17 12:16) Hives oxycodone [From OxyContin] Allergy (Verified 10/30/17 12:16) Rash Medications to take at Discharge Benazepril/Hydrochlorothiazide [Benazepril-Hctz 20-25 mg Tab] 1 tablet PO DAILY 02/21/17 Cholecalciferol (VIT D3) [Vitamin D3] 5,000 unit PO DAILY 02/21/17 Omeprazole [Prilosec] 1 capsule PO DAILY 02/21/17 allopurinol 100 mg tablet 1 tab PO BID tab 08/15/17 ergocalciferol (vitamin D2) 50,000 unit capsule 1 cap PO QWEEK 08/15/17 insulin detemir (U-100) 100 unit/mL (3 mL) subcutaneous pen 40 unit SC QHS ml 08/15/17 insulin lispro (U-100) 100 unit/mL subcutaneous pen See Label Instructions SC TID ml 08/15/17 omega-3 fatty acids 1,000 mg capsule 1 cap PO QDAY 08/15/17 potassium 99 mg tablet 99 mg PO QDAY 08/15/17 aspirin 81 mg tablet,delayed release 2 tab PO BID tab 09/28/17 Blood Sugar Diagnostic [Assure Prism Multi] 0 applic .ROUTE .MEDSUPPLY 10/18/17 Blood-Glucose Meter [Contour] 0 applic .ROUTE .MEDSUPPLY 10/18/17 Hydrocodone Bitart/Apap 5-325 [[place] 5/325] 1 tablet PO Q6H PRN PRN 3 Days #10 tablet 10/18/17 Caltrate Gummy Bites 1 tablet PO DAILY 10/30/17 Folic Acid 1 tablet PO DAILY 10/30/17 Furosemide [Lasix] 1 tablet PO DAILY 10/30/17 Niacin [Niaspan] 1 tablet PO QHS 10/30/17 Duloxetine Hcl [Cymbalta] 60 mg PO DAILY #30 cap 10/31/17 The following prescriptions were given: Duloxetine Hcl [Cymbalta] 60 mg PO DAILY #30 cap Primary Care Physician: Марина Weir MD [Primary Care Provider] - Please follow up with your Primary Care Physician in: 1 Week Please Follow Up With: Juan Simmons MD When: As scheduled, tomorrow 11/01/2017 at 4:45 PM Please Follow Up With: Armando North MD When: As scheduled Proposed Discharge Date: 10/31/17
--- NOTE | 2017-10-31 15:18 | DS.PCM_ITS ---
<Suzanne Mattson - Last Filed: 10/31/17 15:18> Discharge Date and Diagnosis Date of Admission: 10/30/17 Date of Discharge: 10/31/17 - Primary Discharge Diagnosis 1. Acute Kidney Injury on CKD III-secondary to dehydration 2. Generalized weakness, lightheadedness-due to orthostatic hypotension as a result of #1 3. Chronic right foot pain - Secondary Discharge Diagnosis Chronic Problems (Last Reviewed 09/28/17 @ 09:53 by Marysol Brown) Hyperlipemia (Chronic) GERD (gastroesophageal reflux disease) (Chronic) Gout (Chronic) HTN (hypertension) (Chronic) Osteoporosis (Chronic) Patient discontinued her biphosphanate Does not explain why. Wishes to discuss diabetes and thyroid today. Controlled type 2 diabetes mellitus with insulin therapy (Chronic) Reports long standing control until recent illness. Today she reports she used to use her sliding scale. We discussed using this anytime she become ill to avoid her having high BG. Today her Bg have extrem varied numbers. She does mention she goes to exercise 3 times a week which probably causes her low BG days. She also has two different breakfast regimens. One would need more insulin than the other as it contins fruit and the other is mostly protin. We discussed these issues and she is enc to make insulin adjustment for exercise and diet changes. Thyroid goiter (Chronic) Patient has known thyroid goiter . Has multiple nodules and I will refer to surgeon Hospital Course and Treatment Imaging Results: Diagnostic Data Foot X-Ray 10/30/17 18:50 IMPRESSION: No fracture or dislocation. Small plantar calcaneal spur. Electronically Signed: Shahzad Arreguin DO at 21:14 EDT , Service support , Operations: None Procedures: None Summary of Care Provided: Patient is a 72-year-old female admitted 10/30/2017 due to weakness, dizziness, right foot pain. Her past medical history includes type 2 diabetes mellitus, hypertension, GERD, hyperlipidemia, gout, thyroid goiter. 1. Acute Kidney Injury on CKD stage III-suspect secondary to dehydration. Resolved with IV fluids. 2. Generalized weakness/lightheadedness-secondary to orthostatic hypotension. Patient received IV fluids. Repeat orthostatic vitals negative. 3. Right foot pain-occurring for the past 2 years. Following with neurology and podiatry as outpatient. Discussed with Dr. North. Increase Cymbalta to 60 mg daily. Continue Archbald as needed for pain as prescribed by primary care physician. Patient denies injury to the right foot. X-ray of the right foot shows no fracture or dislocation. Small plantar calcaneal spur. No redness or warmth. No signs of infection or acute gout. Appointment was made with Dr. Simmons for tomorrow for further evaluation of chronic right foot pain. 4. Controlled Type 2 Diabetes Mellitus-hemoglobin A1c 10/25/2017 8.5%. Patient follows with [facility]. Continue outpatient follow-up. 5. Hypertension-stable, continue benazepril/HCTZ regimen. Continue to monitor. 6. Hyperlipidemia-not on statin. Patient takes niacin nightly. 7. GERD-continue PPI. 8. Gout? Questionable- on allopurinol, continue. 9. Thyroid Goiter-TSH 10/25/2017 1.33. 10. Osteoporosis-continue home supplement regimen. General: Alert, Oriented x3, Cooperative, No apparent distress HEENT: Atraumatic, PERRLA, EOMI, Normocephalic Neck: Supple, No JVD, Negative Carotid Bruits Lungs: Clear to auscultation, Normal air movement Cardiovascular: Regular rate, Regular Rhythm, Normal S1, Normal S2, No murmurs Abdomen: Bowel Sounds Present, Soft, Non Tender, Non-Distended Extremities: No clubbing, No cyanosis, No edema, Capillary Refill Less than 3 Seconds Skin: No rashes, No breakdown Musculoskeletal: No Tenderness to Palpation of Joints or Extremities Neurological: Cranial nerves II-XII grossly intact, Neuro grossly intact Psych/Mental Status: Normal Affect, Appropriate Patient seen exam prior to discharge. Physical assessment as above. Patient stable for discharge home with recommendations as noted above. This patient was seen by ANA Whitmore under the supervision of Dr. Colindres. Discharge Diet: 1800 Calorie Control Diet, Carb Control Diet Discharge Activity: Return to Normal Activity Call your doctor if you observe: Fever of 101 or Higher, Shortness of breath, Dizziness, Fainting spells, Chest pain Home Medications: Medications to take at Discharge Benazepril/Hydrochlorothiazide [Benazepril-Hctz 20-25 mg Tab] 1 tablet PO DAILY 02/21/17 Cholecalciferol (VIT D3) [Vitamin D3] 5,000 unit PO DAILY 02/21/17 Omeprazole [Prilosec] 1 capsule PO DAILY 02/21/17 allopurinol 100 mg tablet 1 tab PO BID tab 08/15/17 ergocalciferol (vitamin D2) 50,000 unit capsule 1 cap PO QWEEK 08/15/17 insulin detemir (U-100) 100 unit/mL (3 mL) subcutaneous pen 40 unit SC QHS ml 08/15/17 insulin lispro (U-100) 100 unit/mL subcutaneous pen See Label Instructions SC TID ml 08/15/17 omega-3 fatty acids 1,000 mg capsule 1 cap PO QDAY 08/15/17 potassium 99 mg tablet 99 mg PO QDAY 08/15/17 aspirin 81 mg tablet,delayed release 2 tab PO BID tab 09/28/17 Blood Sugar Diagnostic [Assure Prism Multi] 0 applic .ROUTE .MEDSUPPLY 10/18/17 Blood-Glucose Meter [Contour] 0 applic .ROUTE .MEDSUPPLY 10/18/17 Hydrocodone Bitart/Apap 5-325 [Archbald 5/325] 1 tablet PO Q6H PRN PRN 3 Days #10 tablet 10/18/17 Caltrate Gummy Bites 1 tablet PO DAILY 10/30/17 Folic Acid 1 tablet PO DAILY 10/30/17 Furosemide [Lasix] 1 tablet PO DAILY 10/30/17 Niacin [Niaspan] 1 tablet PO QHS 10/30/17 Duloxetine Hcl [Cymbalta] 60 mg PO DAILY #30 cap 10/31/17 Following Prescrptions Were Given to Patient: Duloxetine Hcl [Cymbalta] 60 mg PO DAILY #30 cap Primary Care Physician: Марина Weir MD [Primary Care Provider] - Please follow up with your Primary Care Physician in: 1 Week Please Follow Up With: Juan Simmons MD When: As scheduled, tomorrow 11/01/2017 at 4:45 PM Please Follow Up With: Armando North MD When: As scheduled Disposition: Home Minutes spent on discharge:: 35 Patient Condition:: Stable Medical Necessity - Tobacco Use Smoking Status: Never smoker Meaningful Use Info Meaningful Use Diagnoses (Choose all that apply): None applicable <Carine Colindres E - Last Filed: 10/31/17 16:26> Discharge Date and Diagnosis - Secondary Discharge Diagnosis Chronic Problems (Last Reviewed 09/28/17 @ 09:53 by Marysol Brown) Hyperlipemia (Chronic) GERD (gastroesophageal reflux disease) (Chronic) Gout (Chronic) HTN (hypertension) (Chronic) Osteoporosis (Chronic) Patient discontinued her biphosphanate Does not explain why. Wishes to discuss diabetes and thyroid today. Controlled type 2 diabetes mellitus with insulin therapy (Chronic) Reports long standing control until recent illness. Today she reports she used to use her sliding scale. We discussed using this anytime she become ill to avoid her having high BG. Today her Bg have extrem varied numbers. She does mention she goes to exercise 3 times a week which probably causes her low BG days. She also has two different breakfast regimens. One would need more insulin than the other as it contins fruit and the other is mostly protin. We discussed these issues and she is enc to make insulin adjustment for exercise and diet changes. Thyroid goiter (Chronic) Patient has known thyroid goiter . Has multiple nodules and I will refer to surgeon Hospital Course and Treatment Summary of Care Provided: Hospitalist note: Discharge summary above reviewed as well as physical examination and I agree with above discharge and treatment plan. She was admitted because of dizziness and weakness as well as intractable chronic right foot pain and she was found to have acute kidney injury double stage III chronic kidney disease which is secondary to orthostatic hypotension. Her baseline creatinine has been around 1.4 mg/dL and her admission creatinine was 2.16. On admission, her orthostatic vitals were positive. She was treated with IV fluids and his creatinine came down to 1.59. His symptoms improved and she has no more dizziness or weakness. Repeat orthostatic vitals was unremarkable. Patient complains of chronic right foot pain that has been going on for long time and she has been following up with her PCP and recently, she was referred to neurology as outpatient. Most recently, neurology recommended follow-up with pain management as outpatient. X-ray of the right foot showed no acute fractures or dislocations. Today, and vital signs are stable and she remained afebrile. Kidney function improved. She was evaluated by PT OT and she did okay. - Physical Exam General: Alert, Oriented x3, Cooperative, No apparent distress. HEENT: Atraumatic, PERRLA, EOMI. Neck: Supple, No JVD, Negative Carotid Bruits, Trachea Midline, Thyroid Normal. Lungs: Clear to auscultation, Normal air movement, No rhonchi, No wheeze, No rales. Cardiovascular: Regular rate, Regular Rhythm, Normal S1, Normal S2, PMI Normal. Abdomen: Bowel Sounds Present, Soft, Non Tender, Non-Distended, No Hepato- splenomegaly. Extremities: No clubbing, No cyanosis, No edema Skin: No rashes, No breakdown Neurological: Neuro grossly intact Vital Signs are stable. Patient discharged home in a stable medical condition, discharged on the same medication that he has been taking without any changes, continued on Archbald as needed for pain, dose of Cymbalta increased to 60 mg p.o. daily according to neurology recommendations, referral was made to Dr. Simmons for pain management, recommended follow-up with PCP in 1 week and follow-up with neurology as scheduled. This note was generated with [employer] dictation software. It may contain incorrect words, spelling, and punctuation that were not noted in checking the note before signing. Disposition: Home Minutes spent on discharge:: 25 Patient Condition:: Stable Meaningful Use Info Meaningful Use Diagnoses (Choose all that apply): None applicable Code Visit OBSV E&M: 27803 Observation care discharge
== END 2017-10-31 16:28 | disposition home or self-care (01) ==
LOC: ED 12:53 → MS3 16:16
PROVIDERS: Admitting Provider Internal Medicine; Emergency Provider Emergency Medicine; Family Provider Family Medicine; PCP Family Medicine; Visit Provider Hospitalist
DX: I95.1 Orthostatic hypotension (principal); E11.22 Type 2 diabetes mellitus with diabetic chronic kidney disease; I12.9 Hypertensive chronic kidney disease with stage 1 through stage 4 chronic kidney disease, or unspecified chronic kidney disease; N18.3 Chronic kidney disease, stage 3 (moderate); N17.9 Acute kidney failure, unspecified; M81.0 Age-related osteoporosis without current pathological fracture; M10.9 Gout, unspecified; K21.9 Gastro-esophageal reflux disease without esophagitis; E78.5 Hyperlipidemia, unspecified; M79.671 Pain in right foot; G89.29 Other chronic pain; E04.9 Nontoxic goiter, unspecified; Z79.899 Other long term (current) drug therapy; Z79.4 Long term (current) use of insulin; Z79.82 Long term (current) use of aspirin; M19.90 Unspecified osteoarthritis, unspecified site; G62.9 Polyneuropathy, unspecified
CPT/HCPCS: 36415; 73630; 80048; 81001; 82962; 84484; 85025; 93005; 96361; 96372; 96374; 96375; 96376; 97162; 97165; 97802; 99218; 99283; J7030; A4216; G0378; J2405

== ENCOUNTER 2017-11-19 15:17 | Observation (INO) | payer MEDICARE, MEDICAID, SELFPAY ==
[2017-11-19] VITALS (8 sets, daily range): BP systolic 110–130; BP diastolic 56–75; PULSE 66–80; RESP 14–25; TEMP 36.4–36.6; O2SAT 95–100; BMI 30.7; BMI 32.6
[2017-11-19 15:26] LABS: Bedside Glucose 78 mg/dL (70-110)
--- NOTE | 2017-11-19 15:27 | EKG12_ITS ---
Test Reason : SYNCOPE Blood Pressure : / mmHG Vent. Rate : 073 BPM Atrial Rate : 073 BPM P-R Int : 132 ms QRS Dur : 094 ms QT Int : 410 ms P-R-T Axes : 021 040 063 degrees QTc Int : 451 ms Normal sinus rhythm Normal ECG Confirmed by RHONA GEORGE MD ([id number]), dictionary editor MARS CUELLO ([id number]) on 11/21/2017 12:48:48 PM Referred By: DIANE Confirmed By:RHONA GEORGE MD
--- NOTE | 2017-11-19 15:29 | CT_ITS ---
STUDY: CT BRAIN WITHOUT CONTRAST REASON FOR EXAM: Female, 72 years old. Syncope or seizure. RADIATION DOSAGE (If Supplied By Facility): CTDIvol = ( 44.99 ) mGy, DLP = ( 745.49 ) mGycm TECHNIQUE: Transaxial CT imaging of the brain was performed without administration of intravenous contrast material. Multiplanar reformations are submitted for interpretation. Individualized dose optimization techniques were used for this CT. COMPARISON: Prior comparison studies are not available for review at this time. FINDINGS: Normal soft tissue structures. Normal calvarium. There is mild cerebral atrophy with widening of the extra-axial spaces and ventricular dilatation. There are areas of decreased attenuation within the white matter tracts of the supratentorial brain, consistent with microvascular disease changes. There are small punctate calcifications of the basal ganglia which are seen in the aging brain as a normal variant. Normal brainstem. There is moderate cerebellar atrophy. There is no intracranial hemorrhage. There is severe atherosclerotic calcification of intracranial arteries. Normal visualized paranasal sinuses. CT/Brain/Head without Contrast IMPRESSION: 1. Chronic involutional changes of the brain. 2. No CT evidence of acute intracranial hemorrhage. Electronically Signed: Susan Mccabe MD at 16:26 EDT , Service support ,
--- NOTE | 2017-11-19 15:30 | RAD_ITS ---
STUDY: X-RAY CHEST REASON FOR EXAM: Female, 72 years old. Chest pain TECHNIQUE: Single frontal view of the chest. COMPARISON: June 26, 2017 FINDINGS: The lungs are clear and expanded. There is no demonstrated pleural abnormality. Normal size heart. Normal mediastinum and mark. Normal visualized pulmonary arteries. Normal visualized aortic arch and descending thoracic aorta. Normal visualized thoracic spine. Normal visualized ribs, clavicles, and shoulders. There is no demonstrated abnormality of the visualized soft tissue structures of the upper abdomen. RAD/Chest 1 View (Portable) IMPRESSION: Normal x-ray examination of the chest. Electronically Signed: Oscar Rachel MD at 17:23 EDT , Service support ,
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
[2017-11-19 15:46] LABS: Absolute Lymphocyte Count 2.01 X10^3/ul (0.83-4.51); Absolute Neutrophil Count 4.1 X10^3/uL (2.0-7.7); Basophil# 0.04 X10^3/uL; Basophil% 0.6 % (0-1); Eosinophil# 0.29 X10^3/uL; Eosinophils% 4.3 % (0-5); Hematocrit 36.9 % (37-47); Hemoglobin 11.4 g/dl (12.0-15.0); Lymphocyte # 2.01 X10^3/ul (4.0); Lymphocyte % 29.6 % (19-41); Mean Corp Hgb Conc 30.9 g/gl (32-36); Mean Corpuscular Hgb 25.8 pg (27.0-32.0); Mean Corpuscular Volume 83.5 fL (81-99); Mean Platelet Vol. 11.2 fl (6.2-12.0); Monocyte# 0.38 X10^3/uL; Monocyte% 5.6 % (0-10); Neutrophil # 4.06 X10^3/uL (2.7-7.7); Neutrophil % 59.8 % (47-70); Platelet Count 183 K/mm3 (150-450); RBC Distribution Width CV 16.3 % (11.6-14.6); RBC Distribution Width SD 49.6 fl (35.1-43.9); Red Blood Count 4.42 M/mm3 (4.2-5.4); White Blood Count 6.8 K/mm3 (4.4-11.0)
--- NOTE | 2017-11-19 15:47 | ED.RN ---
PT GIVEN APPLE JUICE.
[2017-11-19 15:56] LABS: Anion Gap 11 (5-15); BUN 27 mg/dL (7-18); BUN/Creat Ratio 17.2 RATIO (10-20); Calcium,Total 9.2 mg/dL (8.5-10.1); Chloride 107 mmol/L (98-107); Creatinine, Serum 1.57 mg/dL (0.55-1.02); EST Glomerular Filtration Rate 35 mL/min (>60); Est Glom Filt Rate - Afr Amer 42 mL/min (>60); Estimated Creatinine Clearance 28.38 ml/min; Glucose 89 mg/dL (74-106); Potassium 3.2 mmol/L (3.5-5.1); Sodium Level 146 mmol/L (136-145)
[2017-11-19 16:05] LABS: POSITIVE COUNT NO; POSITIVE DIFFERENTIAL NO; POSITIVE MORPHOLOGY NO
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
--- NOTE | 2017-11-19 17:48 | PCM.HP.STD ---
Problem List (1) Syncope Status: Acute Qualifiers: Syncope type: unspecified Qualified Code(s): R55 - Syncope and collapse History of Present Illness Date of Admission: 11/19/17 Chief Complaint: Syncope The patient is a 72 year old F who was seen in the emergency room at [facility] after suffering a syncopal episode at home in front of her family. Patient stated that she was seated outside and she began becoming sweaty and not feeling well, she was nauseated and had a headache, she had been outside about 20 minutes today, she went inside the house and sat down on a chair and then passed out. It was related to her by her family members that she was out for approximately 20 minutes, she stated that she did not remember anything until she got into the emergency room. Patient denied any chest pain, shortness of breath, visual disturbances, or speech disturbances. Patient further stated that 1 of her family stated that she saw what appeared to be seizure activity, I could not confirm this as I was unable to talk to family members who were present. Evaluation in the emergency room included a CT of the brain which did not show any acute process, EKG showed a normal sinus rhythm at 73 without evidence of ischemic changes, chest x-ray was unremarkable, labs were remarkable for creatinine 1.57, BUN of 27, potassium of 3.2, and a troponin of 0.054. Patient's blood sugar was 89. Patient will be placed in observation status on PCU for syncope-etiology unclear, according to the EMS documentation, patient's blood sugar was 98, I do not think this was a hypoglycemic episode. Patient will be monitored on telemetry, cardiac enzymes will be cycled as her troponin is slightly elevated, patient will have an EEG performed as well as an echocardiogram and a carotid ultrasound. I have adjusted the patient's home medications while she is in the hospital here. Past Medical History Past Medical History (Chronic Problems): Chronic Problems (Last Reviewed 11/13/17 @ 12:25 by Cem Rice MD) Hyperlipemia (Chronic) GERD (gastroesophageal reflux disease) (Chronic) Gout (Chronic) HTN (hypertension) (Chronic) Osteoporosis (Chronic) Patient discontinued her biphosphanate Does not explain why. Wishes to discuss diabetes and thyroid today. Controlled type 2 diabetes mellitus with insulin therapy (Chronic) Reports long standing control until recent illness. Today she reports she used to use her sliding scale. We discussed using this anytime she become ill to avoid her having high BG. Today her Bg have extrem varied numbers. She does mention she goes to exercise 3 times a week which probably causes her low BG days. She also has two different breakfast regimens. One would need more insulin than the other as it contins fruit and the other is mostly protin. We discussed these issues and she is enc to make insulin adjustment for exercise and diet changes. Thyroid goiter (Chronic) Patient has known thyroid goiter . Has multiple nodules and I will refer to surgeon Medical History: Medical History (Last Reviewed 11/13/17 @ 12:25 by Cem Rice MD) Arthritis M19.90 Back problem M53.9 Carpal tunnel syndrome G56.00 Cataracts, bilateral H26.9 Chronic renal insufficiency N18.9 Diabetes E11.9 Dx : 2009 Last exacerbation : DKA : x1 Hypoglycemic episode : never ER visit : x1 Goiter E04.9 Gout M10.9 IBS (irritable bowel syndrome) K58.9 Neuropathy G62.9 Seasonal allergies J30.2 cataract surgery HTN (hypertension) I10 Allergies duloxetine [From Cymbalta] Allergy (Verified 11/19/17 15:18) Unknown linagliptin [From Tradjenta] Allergy (Verified 11/19/17 15:18) Hives oxycodone [From OxyContin] Allergy (Verified 11/19/17 15:18) Rash Home Medications: Ambulatory Orders Medication Instructions Recorded Benazepril/Hydrochlorothiazide 1 tablet PO DAILY 02/21/17 [Benazepril-Hctz 20-25 mg Tab] Cholecalciferol (VIT D3) [Vitamin 5,000 unit PO DAILY 02/21/17 D3] Omeprazole [Prilosec] 1 capsule PO DAILY 02/21/17 allopurinol 100 mg tablet 1 tab PO BID tab 08/15/17 ergocalciferol (vitamin D2) 50,000 1 cap PO QWEEK 08/15/17 unit capsule insulin detemir (U-100) 100 50 unit SC QHS ml 08/15/17 unit/mL (3 mL) subcutaneous pen insulin lispro (U-100) 100 unit/mL See Label Instructions SC TID ml 08/15/17 subcutaneous pen omega-3 fatty acids 1,000 mg 1 cap PO QDAY 08/15/17 capsule potassium 99 mg tablet 99 mg PO QDAY 08/15/17 aspirin 81 mg tablet,delayed 2 tab PO BID tab 09/28/17 release Blood Sugar Diagnostic [Assure 0 applic .ROUTE .MEDSUPPLY 10/18/17 Prism Multi] Hydrocodone Bitart/Apap 5-325 1 tablet PO Q6H PRN PRN 3 Days #10 10/18/17 [[place] 5/325] tablet Caltrate Gummy Bites 1 tablet PO DAILY 10/30/17 Folic Acid 1 tablet PO DAILY 10/30/17 Furosemide [Lasix] 1 tablet PO DAILY 10/30/17 Surgical History: Surgical History (Last Reviewed 11/13/17 @ 12:25 by Cem Rice MD) H/O tubal ligation Z98.51 History of back surgery Z98.890 Hx of appendectomy Z90.49 Hx of cholecystectomy Z90.49 S/P carpal tunnel release Z98.890 S/P knee replacement Z96.659 Surgical History: cataract, total knee arthroplasty, - - Lumbar surgery ?2 Psychiatric History: No 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 hx 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 Lives: Alone Smoking Status: Never smoker Tobacco Use: Non-smoker Alcohol: None Drugs: None - *Family History Maternal Family History: Family History (Last Reviewed 11/13/17 @ 12:25 by Cem Rice MD) Unknown Alcoholism Arthritis Asthma Depression Hypertension High cholesterol Kidney disease Severe allergy Diabetes History Items: Diabetes Paternal Family History: Family History (Last Reviewed 11/13/17 @ 12:25 by Cem Rice MD) Unknown Alcoholism Arthritis Asthma Depression Hypertension High cholesterol Kidney disease Severe allergy Diabetes History Items: Diabetes Review of Systems Constitutional: Denies: Anorexia, Chills, Fever, Night Sweats, Malaise, Weakness, Weight Change, Fatigue Eyes: Denies: Blurred vision, Cataracts, Conjunctivae Inflammation, Double vision, Drainage, Pain, Redness, Vision Change HEENT: Denies: Difficulty Swallowing, Dysphasia, Ear Pain, Eye Pain, Head Aches, Hearing Changes, Nasal bleeding, Nasal Congestion, Post Nasal Drip Cardiovascular: Denies: Chest Pain, Claudication, Chest Pressure, Chest Tightness, Edema, Heaviness, Palpitations Respiratory: Denies: Cough, Hemoptysis, Pleuritic Pain, Shortness of Breath, Shortness of breath at rest, Shortness of breath upon exertion Gastrointestinal: Reports: Nausea. Denies: Abdominal Pain, Constipation, Diarrhea, Hematemesis, Hematochezia, Melena, Vomiting Genitourinary: Denies: Dysuria, Frequency, Hematuria, Hesitancy, Incontinence, Nocturia, Retention, Urgency Gynecological: Denies: Breast symptoms Musculoskeletal: Denies: Foot Pain, Hand Pain, Joint Pain, Joint stiffness, Joint swelling, Joint Tenderness, Leg Pain Skin: Denies: Dryness, Jaundice, Pruritis, Rash Neurological: Denies: Blurred vision, Double vision, Slurred speech, Difficulty swallowing, Focal weakness, Headaches, Incoordination, Numbness, Tingling, Tremor Psychiatric: Denies: Anxiety, Depression, Homicidal Ideations, Suicidal Ideations Endocrine: Denies: Change in Body Habitus, Heat/ Cold Intolerance, Polydipsia, Polyuria Hematologic/ Lymphatic: Denies: Adenopathy, Anemia, Easy Bruising, Easy Bleeding, Petechiae, Purpura VTE Information - Inpt Only VTE Present on Admission: No VTE Mechan Device Prophylaxis: None VTE Pharm Prophylaxis ordered?: Yes Patient Problems: Active and Suspected Problems (Last Reviewed 11/13/17 @ 12:25 by Cem Rice MD) Syncope (Acute) - Physical Exam General: Alert, Oriented x3, Cooperative, No apparent distress, Well developed, Well nourished HEENT: Atraumatic, PERRLA, EOMI, Normocephalic Oral: Moist Mucosa Neck: Supple, No JVD, Negative Carotid Bruits, No Nuchal Rigidity, Trachea Midline, Thyroid Normal Size and Texture Lungs: Clear to auscultation, Normal air movement, No rhonchi, No wheeze, No rales Cardiovascular: Regular rate, Regular Rhythm, Normal S1, Normal S2, No murmurs, No Ectopic Activity, PMI Normal, No rub noted, No Gallop Abdomen: Bowel Sounds Present, Soft, Non Tender, Non-Distended Extremities: No clubbing, No cyanosis, No edema, Capillary Refill Less than 3 Seconds Skin: No rashes, No breakdown Musculoskeletal: No Tenderness to Palpation of Joints or Extremities Neurological: Cranial nerves II-XII grossly intact, Neuro grossly intact, Sensory exam intact to light touch and pain Psych/Mental Status: Normal Affect, Appropriate, Alert and oriented to time, place, person, mood and affect Vital Signs Temp Pulse Resp BP Pulse Ox 97.6 F L 66 14 130/68 H 100 11/19/17 17:41 11/19/17 17:41 11/19/17 17:41 11/19/17 17:41 11/19/17 17:41 Oxygen Delivery Method Room Air Assessment/Plan All Active Problems (Last Reviewed 11/13/17 @ 12:25 by Cem Rice MD) Syncope (Acute) #1 acute syncopal episode-etiology unclear, patient will be placed in observation status on PCU, she will be monitored on telemetry, EEG will be performed, echocardiogram will be performed, patient will have a carotid ultrasound performed. Due to the length of time the patient was unresponsive (this is according to the patient's narrative), it does not fit with an arrhythmia I feel. It is probably more likely the patient was actually hypoglycemic or could have had a seizure. #2 hypokalemia-patient will be given oral potassium #3 type 2 diabetes-I will reduce the amount of insulin the patient is on while she is in the hospital and monitor her sugars via fingerstick blood sugars #4 Elevated BUN and creatinine-patient takes 2 different diuretics at home, she is taking Lasix and hydrochlorothiazide which is in her blood pressure medication, I have elected to take her off these diuretics while she is in the hospital and placed her on lisinopril which is equivalent to her Lotensin she takes as an outpatient. Labs will be rechecked tomorrow. Patient states that she takes diuretics because of leg edema, patient however does tell me she drinks at least a gallon of water per day. 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
--- NOTE | 2017-11-19 17:58 | HP.PCM_ITS ---
Problem List (1) Syncope Status: Acute Qualifiers: Syncope type: unspecified Qualified Code(s): R55 - Syncope and collapse History of Present Illness Date of Admission: 11/19/17 Chief Complaint: Syncope The patient is a 72 year old F who was seen in the emergency room at [facility] after suffering a syncopal episode at home in front of her family. Patient stated that she was seated outside and she began becoming sweaty and not feeling well, she was nauseated and had a headache, she had been outside about 20 minutes today, she went inside the house and sat down on a chair and then passed out. It was related to her by her family members that she was out for approximately 20 minutes, she stated that she did not remember anything until she got into the emergency room. Patient denied any chest pain, shortness of breath, visual disturbances, or speech disturbances. Patient further stated that 1 of her family stated that she saw what appeared to be seizure activity, I could not confirm this as I was unable to talk to family members who were present. Evaluation in the emergency room included a CT of the brain which did not show any acute process, EKG showed a normal sinus rhythm at 73 without evidence of ischemic changes, chest x-ray was unremarkable, labs were remarkable for creatinine 1.57, BUN of 27, potassium of 3.2, and a troponin of 0.054. Patient' s blood sugar was 89. Patient will be placed in observation status on PCU for syncope-etiology unclear, according to the EMS documentation, patient's blood sugar was 98, I do not think this was a hypoglycemic episode. Patient will be monitored on telemetry, cardiac enzymes will be cycled as her troponin is slightly elevated, patient will have an EEG performed as well as an echocardiogram and a carotid ultrasound. I have adjusted the patient's home medications while she is in the hospital here. Past Medical History Past Medical History (Chronic Problems): Chronic Problems (Last Reviewed 11/13/17 @ 12:25 by Cem Rice MD) Hyperlipemia (Chronic) GERD (gastroesophageal reflux disease) (Chronic) Gout (Chronic) HTN (hypertension) (Chronic) Osteoporosis (Chronic) Patient discontinued her biphosphanate Does not explain why. Wishes to discuss diabetes and thyroid today. Controlled type 2 diabetes mellitus with insulin therapy (Chronic) Reports long standing control until recent illness. Today she reports she used to use her sliding scale. We discussed using this anytime she become ill to avoid her having high BG. Today her Bg have extrem varied numbers. She does mention she goes to exercise 3 times a week which probably causes her low BG days. She also has two different breakfast regimens. One would need more insulin than the other as it contins fruit and the other is mostly protin. We discussed these issues and she is enc to make insulin adjustment for exercise and diet changes. Thyroid goiter (Chronic) Patient has known thyroid goiter . Has multiple nodules and I will refer to surgeon Medical History: Medical History (Last Reviewed 11/13/17 @ 12:25 by Cem Rice MD) Arthritis M19.90 Back problem M53.9 Carpal tunnel syndrome G56.00 Cataracts, bilateral H26.9 Chronic renal insufficiency N18.9 Diabetes E11.9 Dx : 2009 Last exacerbation : DKA : x1 Hypoglycemic episode : never ER visit : x1 Goiter E04.9 Gout M10.9 IBS (irritable bowel syndrome) K58.9 Neuropathy G62.9 Seasonal allergies J30.2 cataract surgery HTN (hypertension) I10 Allergies duloxetine [From Cymbalta] Allergy (Verified 11/19/17 15:18) Unknown linagliptin [From Tradjenta] Allergy (Verified 11/19/17 15:18) Hives oxycodone [From OxyContin] Allergy (Verified 11/19/17 15:18) Rash Home Medications: Ambulatory Orders Medication Instructions Recorded Benazepril/Hydrochlorothiazide 1 tablet PO DAILY 02/21/17 [Benazepril-Hctz 20-25 mg Tab] Cholecalciferol (VIT D3) [Vitamin 5,000 unit PO DAILY 02/21/17 D3] Omeprazole [Prilosec] 1 capsule PO DAILY 02/21/17 allopurinol 100 mg tablet 1 tab PO BID tab 08/15/17 ergocalciferol (vitamin D2) 50,000 1 cap PO QWEEK 08/15/17 unit capsule insulin detemir (U-100) 100 50 unit SC QHS ml 08/15/17 unit/mL (3 mL) subcutaneous pen insulin lispro (U-100) 100 unit/mL See Label Instructions SC TID ml 08/15/17 subcutaneous pen omega-3 fatty acids 1,000 mg 1 cap PO QDAY 08/15/17 capsule potassium 99 mg tablet 99 mg PO QDAY 08/15/17 aspirin 81 mg tablet,delayed 2 tab PO BID tab 09/28/17 release Blood Sugar Diagnostic [Assure 0 applic .ROUTE .MEDSUPPLY 10/18/17 Prism Multi] Hydrocodone Bitart/Apap 5-325 1 tablet PO Q6H PRN PRN 3 Days #10 10/18/17 [[place] 5/325] tablet Caltrate Gummy Bites 1 tablet PO DAILY 10/30/17 Folic Acid 1 tablet PO DAILY 10/30/17 Furosemide [Lasix] 1 tablet PO DAILY 10/30/17 Surgical History: Surgical History (Last Reviewed 11/13/17 @ 12:25 by Cem Rice MD) H/O tubal ligation Z98.51 History of back surgery Z98.890 Hx of appendectomy Z90.49 Hx of cholecystectomy Z90.49 S/P carpal tunnel release Z98.890 S/P knee replacement Z96.659 Surgical History: cataract, total knee arthroplasty, - - Lumbar surgery ?2 Psychiatric History: No 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 hx 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 Lives: Alone Smoking Status: Never smoker Tobacco Use: Non-smoker Alcohol: None Drugs: None - *Family History Maternal Family History: Family History (Last Reviewed 11/13/17 @ 12:25 by Cem Rice MD) Unknown Alcoholism Arthritis Asthma Depression Hypertension High cholesterol Kidney disease Severe allergy Diabetes History Items: Diabetes Paternal Family History: Family History (Last Reviewed 11/13/17 @ 12:25 by Cem Rice MD) Unknown Alcoholism Arthritis Asthma Depression Hypertension High cholesterol Kidney disease Severe allergy Diabetes History Items: Diabetes Review of Systems Constitutional: Denies: Anorexia, Chills, Fever, Night Sweats, Malaise, Weakness , Weight Change, Fatigue Eyes: Denies: Blurred vision, Cataracts, Conjunctivae Inflammation, Double vision, Drainage, Pain, Redness, Vision Change HEENT: Denies: Difficulty Swallowing, Dysphasia, Ear Pain, Eye Pain, Head Aches , Hearing Changes, Nasal bleeding, Nasal Congestion, Post Nasal Drip Cardiovascular: Denies: Chest Pain, Claudication, Chest Pressure, Chest Tightness, Edema, Heaviness, Palpitations Respiratory: Denies: Cough, Hemoptysis, Pleuritic Pain, Shortness of Breath, Shortness of breath at rest, Shortness of breath upon exertion Gastrointestinal: Reports: Nausea. Denies: Abdominal Pain, Constipation, Diarrhea, Hematemesis, Hematochezia, Melena, Vomiting Genitourinary: Denies: Dysuria, Frequency, Hematuria, Hesitancy, Incontinence, Nocturia, Retention, Urgency Gynecological: Denies: Breast symptoms Musculoskeletal: Denies: Foot Pain, Hand Pain, Joint Pain, Joint stiffness, Joint swelling, Joint Tenderness, Leg Pain Skin: Denies: Dryness, Jaundice, Pruritis, Rash Neurological: Denies: Blurred vision, Double vision, Slurred speech, Difficulty swallowing, Focal weakness, Headaches, Incoordination, Numbness, Tingling, Tremor Psychiatric: Denies: Anxiety, Depression, Homicidal Ideations, Suicidal Ideations Endocrine: Denies: Change in Body Habitus, Heat/ Cold Intolerance, Polydipsia, Polyuria Hematologic/ Lymphatic: Denies: Adenopathy, Anemia, Easy Bruising, Easy Bleeding , Petechiae, Purpura VTE Information - Inpt Only VTE Present on Admission: No VTE Mechan Device Prophylaxis: None VTE Pharm Prophylaxis ordered?: Yes Patient Problems: Active and Suspected Problems (Last Reviewed 11/13/17 @ 12:25 by Cem Rice MD) Syncope (Acute) - Physical Exam General: Alert, Oriented x3, Cooperative, No apparent distress, Well developed, Well nourished HEENT: Atraumatic, PERRLA, EOMI, Normocephalic Oral: Moist Mucosa Neck: Supple, No JVD, Negative Carotid Bruits, No Nuchal Rigidity, Trachea Midline, Thyroid Normal Size and Texture Lungs: Clear to auscultation, Normal air movement, No rhonchi, No wheeze, No rales Cardiovascular: Regular rate, Regular Rhythm, Normal S1, Normal S2, No murmurs, No Ectopic Activity, PMI Normal, No rub noted, No Gallop Abdomen: Bowel Sounds Present, Soft, Non Tender, Non-Distended Extremities: No clubbing, No cyanosis, No edema, Capillary Refill Less than 3 Seconds Skin: No rashes, No breakdown Musculoskeletal: No Tenderness to Palpation of Joints or Extremities Neurological: Cranial nerves II-XII grossly intact, Neuro grossly intact, Sensory exam intact to light touch and pain Psych/Mental Status: Normal Affect, Appropriate, Alert and oriented to time, place, person, mood and affect Vital Signs Temp Pulse Resp BP Pulse Ox 97.6 F L 66 14 130/68 H 100 11/19/17 17:41 11/19/17 17:41 11/19/17 17:41 11/19/17 17:41 11/19/17 17:41 Oxygen Delivery Method Room Air Assessment/Plan All Active Problems (Last Reviewed 11/13/17 @ 12:25 by Cem Rice MD) Syncope (Acute) #1 acute syncopal episode-etiology unclear, patient will be placed in observation status on PCU, she will be monitored on telemetry, EEG will be performed, echocardiogram will be performed, patient will have a carotid ultrasound performed. Due to the length of time the patient was unresponsive ( this is according to the patient's narrative), it does not fit with an arrhythmia I feel. It is probably more likely the patient was actually hypoglycemic or could have had a seizure. #2 hypokalemia-patient will be given oral potassium #3 type 2 diabetes-I will reduce the amount of insulin the patient is on while she is in the hospital and monitor her sugars via fingerstick blood sugars #4 Elevated BUN and creatinine-patient takes 2 different diuretics at home, she is taking Lasix and hydrochlorothiazide which is in her blood pressure medication, I have elected to take her off these diuretics while she is in the hospital and placed her on lisinopril which is equivalent to her Lotensin she takes as an outpatient. Labs will be rechecked tomorrow. Patient states that she takes diuretics because of leg edema, patient however does tell me she drinks at least a gallon of water per day. 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
[2017-11-19 18:01] LABS: Bedside Glucose 156 mg/dL (70-110)
[2017-11-19] MEDS: HYDROcodone Bitartrate/Apap 5/325 Tablet PO (18:12)
[2017-11-19] MEDS: Insulin Lispro 100 UNIT/ML INSULN.PEN 12 UNIT SC (18:13)
[2017-11-19] MEDS: 0.9% Normal Saline 1,000 ML 75 ML IV (18:19)
[2017-11-19] MEDS: Heparin Injection (Vial) 5,000 UNIT/ML VIAL 5000 UNIT SC (22:16)
[2017-11-19] MEDS: Capsaicin 0.025% 1 APPLIC Tube TOPICAL (22:19)
[2017-11-19] MEDS: Insulin Lispro 100 UNIT/ML INSULN.PEN SC (22:22)
[2017-11-19 22:35] LABS: Bedside Glucose 314 mg/dL (70-110)
[2017-11-20] VITALS (10 sets, daily range): BP systolic 116–161; BP diastolic 50–69; PULSE 64–75; RESP 16; TEMP 36.4–36.7; O2SAT 97–98
[2017-11-20] MEDS: Capsaicin 0.025% 1 APPLIC Tube TOPICAL ×2 (04:31→15:20)
[2017-11-20] MEDS: Heparin Injection (Vial) 5,000 UNIT/ML VIAL 5000 UNIT SC ×2 (05:27→15:21)
--- NOTE | 2017-11-20 05:55 | CDU_ITS ---
Reason For Study: Syncope Rt. Velocities/BP Lt. Velocities/BP Prox CCA 108/12 cm/sec. Prox CCA 89/16 cm/sec. Mid CCA 75/16 cm/sec. Mid CCA 98/13 cm/sec. Dist CCA 70/16 cm/sec. Dist CCA 84/14 cm/sec. Prox ICA 70/20 cm/sec. Prox ICA 70/17 cm/sec. Mid ICA 98/28 cm/sec. Mid ICA 71/21 cm/sec. Dist ICA 89/30 cm/sec. Dist ICA 105/32 cm/sec. Rt. ICA/CCA = 1.31. Lt. ICA/CCA = 1.07. Prox ECA 84/6 cm/sec. Prox ECA 96/8 cm/sec. Rt. Vert. 79/22 cm/sec. Lt. Vert. 43/12 cm/sec. Right Extracranial There is intimal thickening but no significant atherosclerotic plaque noted in the right common carotid artery. There is heterogeneous, irregular atherosclerotic plaque noted in the right internal carotid artery. There is heterogeneous, irregular atherosclerotic plaque noted in the right external carotid artery. Antegrade flow is noted in the right vertebral artery. Left Extracranial There is intimal thickening but no significant atherosclerotic plaque noted in the left common carotid artery. There is heterogeneous, irregular atherosclerotic plaque noted in the left internal carotid artery. There is intimal thickening but no significant atherosclerotic plaque noted in the left external carotid artery. Antegrade flow is noted in the left vertebral artery. Procedure Carotid Duplex [id number]. Exam performed portable in patient room. Interpretation Summary There is < 50% stenosis in the bilateral extracranial internal carotid arteries based on the velocity criteria. There is heterogenous irregular atherosclerotic plaque in both extracranial internal carotid arteries. There is antegrade flow in both vertebral arteries. Ordering Physician: Erick Waldron Referring Physician: Марина Weir Performed By: Janessa Henriquez, RDCS, RVT
--- NOTE | 2017-11-20 05:55 | ECHOD_ITS ---
Reason For Study: Syncope Procedure This was a 2D Doppler, Color Flow transthoracic echocardiogram. Exam performed portable in patient room. Left Ventricle Normal LV size. Mild concentric left ventricular hypertrophy. Left ventricular systolic function is normal. The estimated ejection fraction is 55 %. Stage 1 diastolic dysfunction. No regional wall motion abnormalities noted. Right Ventricle Normal RV size. Normal systolic function. Atria Normal left atrium. Normal right atrium. Mitral Valve Normal mitral valve. Mild (1+) eccentric mitral valve insufficiency. Tricuspid Valve Normal tricuspid valve. Mild (1+) tricuspid valve insufficiency. Pulmonary artery systolic pressure is 35 mmHg. Aortic Valve Trisinus/trileaflet aortic valve. Pulmonic Valve Normal pulmonic valve. Great Vessels Normal aortic root. The pulmonary artery is normal size. Normal inferior vena cava. Pericardium/Pleural No pericardial effusion. MMode/2D Measurements & Calculations LVIDd: 3.9 cm IVSd: 1.2 cm Ao root diam: 3.1 cm LVIDs: 2.6 cm LVPWd: 1.2 cm LA dimension: 3.7 cm RVDd: 3.4 cm FS: 31.9 % LAV(MOD-bp): 46.6 ml LVAd ap4: 22.5 cm2 SV(MOD-sp4): 31.1 ml LAV(MOD-bp) Indexed: 26.2 ml/m2 EDV(MOD-sp4): 51.2 ml LAV(MOD-sp2): 56.4 ml EDV(sp4-el): 54.1 ml LAV(MOD-sp4): 37.9 ml LVAs ap4: 11.6 cm2 ESV(MOD-sp4): 20.0 ml ESV(sp4-el): 19.7 ml EF(MOD-sp4): 60.8 % EF(sp4-el): 63.5 % SV(sp4-el): 34.3 ml LA A4 area: 15.6 cm2 RA A4 area: 13.1 cm2 Time Measurements MV dec time: 0.18 sec Doppler Measurements & Calculations MV E max jp: 91.6 cm/sec Lat Peak E' Jp: 12.5 cm/sec Med Peak E' Jp: 10.3 cm/sec MV A max jp: 135.9 cm/sec E/E' lat: 7.4 E/E' med: 8.9 MV E/A: 0.67 MV V2 max: 138.7 cm/sec MV P1/2t max jp: 119.4 cm/sec Ao V2 max: 175.5 cm/sec MV max P.7 mmHg MV P1/2t: 83.0 msec Ao max P.3 mmHg MV V2 mean: 76.8 cm/sec MV dec slope: 421.2 cm/sec2 Ao V2 mean: 114.1 cm/sec MV mean P.8 mmHg MVA(P1/2t): 2.6 cm2 Ao mean P.9 mmHg MV V2 VTI: 30.7 cm Ao V2 VTI: 41.2 cm LV V1 max: 111.5 cm/sec PA V2 max: 105.0 cm/sec TR max jp: 281.7 cm/sec LV V1 max P.0 mmHg TR max P.7 mmHg LV V1 mean P.4 mmHg LV V1 mean: 73.7 cm/sec LV V1 VTI: 26.6 cm Interpretation Summary Normal LV size. Left ventricular systolic function is normal. The estimated ejection fraction is 55 %. Stage 1 diastolic dysfunction. Mild concentric left ventricular hypertrophy. Mild (1+) tricuspid valve insufficiency. Pulmonary artery systolic pressure is 35 mmHg. Ordering Physician: Erick Waldron Referring Physician: Armando North Performed By: Nathan Ramirez RCS
--- NOTE | 2017-11-20 05:55 | EKG12_ITS ---
Test Reason : AM EKG Blood Pressure : / mmHG Vent. Rate : 064 BPM Atrial Rate : 064 BPM P-R Int : 152 ms QRS Dur : 090 ms QT Int : 416 ms P-R-T Axes : 031 055 054 degrees QTc Int : 429 ms Normal sinus rhythm Normal ECG Confirmed by DORIS BALDERRAMA, RHONA ([id number]), map editor MARS CUELLO ([id number]) on 11/24/2017 2:00:30 PM Referred By: HARDY Confirmed By:RHONA GEORGE MD
[2017-11-20 06:23] LABS: Anion Gap 9 (5-15); BUN 26 mg/dL (7-18); BUN/Creat Ratio 18.6 RATIO (10-20); Calcium,Total 8.4 mg/dL (8.5-10.1); Chloride 104 mmol/L (98-107); EST Glomerular Filtration Rate 39 mL/min (>60); Est Glom Filt Rate - Afr Amer 48 mL/min (>60); Estimated Creatinine Clearance 27.81 ml/min; Glucose 233 mg/dL (74-106); Potassium 4.1 mmol/L (3.5-5.1); Sodium Level 142 mmol/L (136-145)
[2017-11-20 06:50] LABS: Bedside Glucose 243 mg/dL (70-110)
[2017-11-20] MEDS: 0.9% Normal Saline 1,000 ML 75 ML IV ×2 (08:00→20:34)
[2017-11-20] MEDS: Insulin Lispro 100 UNIT/ML INSULN.PEN SC ×4 (08:01→22:24)
[2017-11-20] MEDS: Insulin Lispro 100 UNIT/ML INSULN.PEN 12 UNIT SC ×3 (08:02→17:21)
[2017-11-20] MEDS: Aspirin 81 MG TAB.CHEW 162 MG PO ×2 (08:02→17:21)
[2017-11-20] MEDS: Lisinopril 20 MG Tablet PO (09:56)
[2017-11-20] MEDS: Pantoprazole Sodium 20 MG Tablet PO (09:56)
[2017-11-20 12:16] LABS: Bedside Glucose 372 mg/dL (70-110)
--- NOTE | 2017-11-20 16:07 | PCM.PN.HOSP ---
Patient Problems: Active and Suspected Problems (Last Reviewed 11/13/17 @ 12:25 by Cem Rice MD) Syncope (Acute) Subjective: Patient is a 72-year-old lady with past medical history is none for hypertension, diabetes mellitus type 2 admitted following a syncopal episode associated with the patient was noted to have indeterminate troponin. Admitted to a monitored bed where patient has since been managed Objective: GENERAL: cooperative and in no apparent distress. HEENT: Clear conjunctiva, moist oral mucosa NECK; supple, normal thyroid, no distended JVD. CHEST: Clear to auscultation bilaterally, HEART: Regular S1 S2, no audible murmurs ABDOMEN: soft, non-tender, normoactive bowel sounds, RECTAL: deferred EXTREMITIES: No edema, no clubbing, no cyanosis. 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 SKIN: No Rash Vitals/I&O's: Vital Signs Temp Pulse Resp BP Pulse Ox 98.1 F 72 16 128/64 H 98 11/20/17 15:17 11/20/17 15:17 11/20/17 15:17 11/20/17 15:17 11/20/17 15:17 Oxygen Delivery Method Room Air Weight: 79.605 kg Body Mass Index (BMI) 32.6 Intake and Output for Last 24 Hours 11/18/17 11/19/17 11/20/17 23:59 23:59 23:59 Intake Total 240 / 240 1543 / 1543 Balance 240 / 240 1543 / 1543 Laboratory Results 11/19/17 17:48: POC Glucose 156 H 11/19/17 18:25: Troponin I 0.060 H 11/19/17 21:22: Troponin I 0.056 H 11/19/17 22:18: POC Glucose 314 H 11/20/17 05:15: Sodium 142, Potassium 4.1, Chloride 104, Carbon Dioxide 29.0, Anion Gap 9, BUN 26 H, Creatinine 1.40 H, Estim Creat Clear Calc 27.81, Est GFR (MDRD) Af Amer 48 L, Est GFR (MDRD) Non-Af 39 L, BUN/Creatinine Ratio 18.6, Glucose 233 H, Calcium 8.4 L 11/20/17 06:44: POC Glucose 243 H 11/20/17 11:53: POC Glucose 372 H Current Medications Hydrocodone Bitart/Acetaminophen ([place] 5mg-325mg) 1 tablet PO Q6H PRN PRN PRN Reason: PAIN Last Admin: 11/19/17 18:12 Dose: 1 tablet Aspirin (Aspirin, Baby) 162 mg PO BIDCM [facility] Last Admin: 11/20/17 08:02 Dose: 162 mg Capsaicin (Zostrix) 1 applic TOPICAL 4X/DAY PRN PRN PRN Reason: nerve pain Last Admin: 11/20/17 15:20 Dose: 1 applic Heparin Sodium (Porcine) (Heparin Na) 5,000 unit SC Q8 [facility] Last Admin: 11/20/17 15:21 Dose: 5,000 u Sodium Chloride () 1,000 mls @ 75 mls/hr IV .[id number] [facility] Last Admin: 11/20/17 08:00 Dose: 75 mls/hr Insulin Glargine (Lantus (Bkc)) 30 units SC QHS [facility] Last Admin: 11/19/17 22:20 Dose: 30 u Insulin Human Lispro (Humalog Kwikpen (Bkc)) 0 unit SC ACHS [facility] PRN Reason: Protocol Last Admin: 11/20/17 11:56 Dose: 8 u Insulin Human Lispro (Humalog Kwikpen (Bkc)) 12 unit SC TIDAC [facility] Last Admin: 11/20/17 11:57 Dose: 12 u Lisinopril (Zestril) 20 mg PO DAILY [facility] Last Admin: 11/20/17 09:56 Dose: 20 mg Pantoprazole Sodium (Protonix) 20 mg PO DAILY [facility] Last Admin: 11/20/17 09:56 Dose: 20 mg Potassium [facility] ([facility]) [facility] Last Admin: 11/20/17 08:03 Dose: 20 meq Pregabalin (Lyrica) 150 mg PO BID [facility] Sodium Chloride () 5 - 30 ml IV UD PRN PRN Reason: SALINE FLUSH Medical Necessity - Tobacco Use Smoking Status: Never smoker Tobacco Use: Non-smoker Assessment/Plan All Active Problems (Last Reviewed 11/13/17 @ 12:25 by Cem Rice MD) Syncope (Acute) Patient is a 72-year-old lady with past medical history is none for hypertension, diabetes mellitus type 2 admitted following a syncopal episode associated with the patient was noted to have indeterminate troponin. Admitted to a monitored bed where patient has since been managed 1. Acute syncopal episode of unknown etiology. Patient has been managed continuously on telemetry with no pathological arrhythmias found. As part of his management and EEG and carotid ultrasound were ordered by the admitting physician. With patient having indeterminate troponin ordered a d-dimer and if positive to obtain CTA of the chest as well as a nuclear stress test scheduled to be performed on 11/21/2017 2. Hypokalemia corrected per protocol 3. Acute kidney injury patient is on HCTZ as well as Lasix held on admission managed with IV fluids with monitoring of electrolyte 4. Diabetes mellitus type 2; on long-acting insulin dose adjusted on admission and patient subsequently placed on Accu-Cheks before meals and at bedtime with sliding scale coverage 5. 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 GERD 7. Hypertension-blood pressure controlled, home medications continued with dose adjustment as needed 8. History of gout 9. DVT prophylaxis SC Lovenox Clinical Impression(s) from Imaging Studies Brain CT 11/19/17 15:29 IMPRESSION: 1. Chronic involutional changes of the brain. 2. No CT evidence of acute intracranial hemorrhage. Electronically Signed: Susan Mccabe MD at 16:26 EDT , Service support , Chest X-Ray 11/19/17 15:30 IMPRESSION: Normal x-ray examination of the chest. Electronically Signed: Oscar Rachel MD at 17:23 EDT , Service support , Active Medications Hydrocodone Bitart/Acetaminophen ([place] 5mg-325mg) 1 tablet PO Q6H PRN PRN PRN Reason: PAIN Last Admin: 11/19/17 18:12 Dose: 1 tablet Aspirin (Aspirin, Baby) 162 mg PO BIDCM [facility] Last Admin: 11/20/17 08:02 Dose: 162 mg Capsaicin (Zostrix) 1 applic TOPICAL 4X/DAY PRN PRN PRN Reason: nerve pain Last Admin: 11/20/17 15:20 Dose: 1 applic Heparin Sodium (Porcine) (Heparin Na) 5,000 unit SC Q8 [facility] Last Admin: 11/20/17 15:21 Dose: 5,000 u Sodium Chloride () 1,000 mls @ 75 mls/hr IV .[id number] [facility] Last Admin: 11/20/17 08:00 Dose: 75 mls/hr Insulin Glargine (Lantus (Bkc)) 30 units SC QHS [facility] Last Admin: 11/19/17 22:20 Dose: 30 u Insulin Human Lispro (Humalog Kwikpen (Bkc)) 0 unit SC ACHS [facility] PRN Reason: Protocol Last Admin: 11/20/17 11:56 Dose: 8 u Insulin Human Lispro (Humalog Kwikpen (Bkc)) 12 unit SC TIDAC [facility] Last Admin: 11/20/17 11:57 Dose: 12 u Lisinopril (Zestril) 20 mg PO DAILY [facility] Last Admin: 11/20/17 09:56 Dose: 20 mg Pantoprazole Sodium (Protonix) 20 mg PO DAILY [facility] Last Admin: 11/20/17 09:56 Dose: 20 mg Potassium Chloride (K[facility]Dur) [facility] Last Admin: 11/20/17 08:03 Dose: 20 meq Pregabalin (Lyrica) 150 mg PO BID [facility] Sodium Chloride () 5 - 30 ml IV UD PRN PRN Reason: SALINE FLUSH Code Visit OBSV E&M: 55239 Subsequent observation care L3
[2017-11-20 16:10] LABS: Bedside Glucose 229 mg/dL (70-110)
--- NOTE | 2017-11-20 16:16 | PN_ITS ---
Patient Problems: Active and Suspected Problems (Last Reviewed 11/13/17 @ 12:25 by Cem Rice MD) Syncope (Acute) Subjective: Patient is a 72-year-old lady with past medical history is none for hypertension , diabetes mellitus type 2 admitted following a syncopal episode associated with the patient was noted to have indeterminate troponin. Admitted to a monitored bed where patient has since been managed Objective: GENERAL: cooperative and in no apparent distress. HEENT: Clear conjunctiva, moist oral mucosa NECK; supple, normal thyroid, no distended JVD. CHEST: Clear to auscultation bilaterally, HEART: Regular S1 S2, no audible murmurs ABDOMEN: soft, non-tender, normoactive bowel sounds, RECTAL: deferred EXTREMITIES: No edema, no clubbing, no cyanosis. 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 SKIN: No Rash Vitals/I&O's: Vital Signs Temp Pulse Resp BP Pulse Ox 98.1 F 72 16 128/64 H 98 11/20/17 15:17 11/20/17 15:17 11/20/17 15:17 11/20/17 15:17 11/20/17 15:17 Oxygen Delivery Method Room Air Weight: 79.605 kg Body Mass Index (BMI) 32.6 Intake and Output for Last 24 Hours 11/18/17 11/19/17 11/20/17 23:59 23:59 23:59 Intake Total 240 / 240 1543 / 1543 Balance 240 / 240 1543 / 1543 Laboratory Results 11/19/17 17:48: POC Glucose 156 H 11/19/17 18:25: Troponin I 0.060 H 11/19/17 21:22: Troponin I 0.056 H 11/19/17 22:18: POC Glucose 314 H 11/20/17 05:15: Sodium 142, Potassium 4.1, Chloride 104, Carbon Dioxide 29.0, Anion Gap 9, BUN 26 H, Creatinine 1.40 H, Estim Creat Clear Calc 27.81, Est GFR (MDRD) Af Amer 48 L, Est GFR (MDRD) Non-Af 39 L, BUN/Creatinine Ratio 18.6, Glucose 233 H, Calcium 8.4 L 11/20/17 06:44: POC Glucose 243 H 11/20/17 11:53: POC Glucose 372 H Current Medications Hydrocodone Bitart/Acetaminophen ([place] 5mg-325mg) 1 tablet PO Q6H PRN PRN PRN Reason: PAIN Last Admin: 11/19/17 18:12 Dose: 1 tablet Aspirin (Aspirin, Baby) 162 mg PO BIDCM [facility] Last Admin: 11/20/17 08:02 Dose: 162 mg Capsaicin (Zostrix) 1 applic TOPICAL 4X/DAY PRN PRN PRN Reason: nerve pain Last Admin: 11/20/17 15:20 Dose: 1 applic Heparin Sodium (Porcine) (Heparin Na) 5,000 unit SC Q8 [facility] Last Admin: 11/20/17 15:21 Dose: 5,000 u Sodium Chloride () 1,000 mls @ 75 mls/hr IV .[id number] [facility] Last Admin: 11/20/17 08:00 Dose: 75 mls/hr Insulin Glargine (Lantus (Bkc)) 30 units SC QHS [facility] Last Admin: 11/19/17 22:20 Dose: 30 u Insulin Human Lispro (Humalog Kwikpen (Bkc)) 0 unit SC ACHS [facility] PRN Reason: Protocol Last Admin: 11/20/17 11:56 Dose: 8 u Insulin Human Lispro (Humalog Kwikpen (Bkc)) 12 unit SC TIDAC [facility] Last Admin: 11/20/17 11:57 Dose: 12 u Lisinopril (Zestril) 20 mg PO DAILY [facility] Last Admin: 11/20/17 09:56 Dose: 20 mg Pantoprazole Sodium (Protonix) 20 mg PO DAILY [facility] Last Admin: 11/20/17 09:56 Dose: 20 mg [facility] Last Admin: 11/20/17 08:03 Dose: 20 meq Pregabalin (Lyrica) 150 mg PO BID [facility] Sodium Chloride () 5 - 30 ml IV UD PRN PRN Reason: SALINE FLUSH Medical Necessity - Tobacco Use Smoking Status: Never smoker Tobacco Use: Non-smoker Assessment/Plan All Active Problems (Last Reviewed 11/13/17 @ 12:25 by Cem Rice MD) Syncope (Acute) Patient is a 72-year-old lady with past medical history is none for hypertension , diabetes mellitus type 2 admitted following a syncopal episode associated with the patient was noted to have indeterminate troponin. Admitted to a monitored bed where patient has since been managed 1. Acute syncopal episode of unknown etiology. Patient has been managed continuously on telemetry with no pathological arrhythmias found. As part of his management and EEG and carotid ultrasound were ordered by the admitting physician. With patient having indeterminate troponin ordered a d-dimer and if positive to obtain CTA of the chest as well as a nuclear stress test scheduled to be performed on 11/21/2017 2. Hypokalemia corrected per protocol 3. Acute kidney injury patient is on HCTZ as well as Lasix held on admission managed with IV fluids with monitoring of electrolyte 4. Diabetes mellitus type 2; on long-acting insulin dose adjusted on admission and patient subsequently placed on Accu-Cheks before meals and at bedtime with sliding scale coverage 5. 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 GERD 7. Hypertension-blood pressure controlled, home medications continued with dose adjustment as needed 8. History of gout 9. DVT prophylaxis SC Lovenox Clinical Impression(s) from Imaging Studies Brain CT 11/19/17 15:29 IMPRESSION: 1. Chronic involutional changes of the brain. 2. No CT evidence of acute intracranial hemorrhage. Electronically Signed: Susan Mccabe MD at 16:26 EDT , Service support , Chest X-Ray 11/19/17 15:30 IMPRESSION: Normal x-ray examination of the chest. Electronically Signed: Oscar Rachel MD at 17:23 EDT , Service support , Active Medications Hydrocodone Bitart/Acetaminophen ([place] 5mg-325mg) 1 tablet PO Q6H PRN PRN PRN Reason: PAIN Last Admin: 11/19/17 18:12 Dose: 1 tablet Aspirin (Aspirin, Baby) 162 mg PO BIDCM [facility] Last Admin: 11/20/17 08:02 Dose: 162 mg Capsaicin (Zostrix) 1 applic TOPICAL 4X/DAY PRN PRN PRN Reason: nerve pain Last Admin: 11/20/17 15:20 Dose: 1 applic Heparin Sodium (Porcine) (Heparin Na) 5,000 unit SC Q8 [facility] Last Admin: 11/20/17 15:21 Dose: 5,000 u Sodium Chloride () 1,000 mls @ 75 mls/hr IV .[id number] [facility] Last Admin: 11/20/17 08:00 Dose: 75 mls/hr Insulin Glargine (Lantus (Bkc)) 30 units SC QHS [facility] Last Admin: 11/19/17 22:20 Dose: 30 u Insulin Human Lispro (Humalog Kwikpen (Bkc)) 0 unit SC ACHS [facility] PRN Reason: Protocol Last Admin: 11/20/17 11:56 Dose: 8 u Insulin Human Lispro (Humalog Kwikpen (Bkc)) 12 unit SC TIDAC [facility] Last Admin: 11/20/17 11:57 Dose: 12 u Lisinopril (Zestril) 20 mg PO DAILY [facility] Last Admin: 11/20/17 09:56 Dose: 20 mg Pantoprazole Sodium (Protonix) 20 mg PO DAILY [facility] Last Admin: 11/20/17 09:56 Dose: 20 mg Potassium [facility] Last Admin: 11/20/17 08:03 Dose: 20 meq Pregabalin (Lyrica) 150 mg PO BID [facility] Sodium Chloride () 5 - 30 ml IV UD PRN PRN Reason: SALINE FLUSH Code Visit OBSV E&M: 41199 Subsequent observation care L3
[2017-11-20 17:10] LABS: D-Dimer Quantitative (DVT/PE) 1.41 FEU/ug/m (0.27-0.49)
--- NOTE | 2017-11-20 17:13 | CT_ITS ---
STUDY: CTA CHEST REASON FOR EXAM: Female, 72 years old. Elevated d-dimer. RADIATION DOSAGE (If Supplied By Facility): CTDIvol = ( 12.80 ) mGy, DLP = ( 481.85 ) mGycm TECHNIQUE: The examination was performed with the intravenous administration of 75 ml of Isovue 370 contrast material. Post-processing of the angiographic images was performed, with multiplanar reformation and 3D reconstruction. Individualized dose optimization techniques were used for this CT. COMPARISON: Chest, November 19, 2017. FINDINGS: Normal enhancement of the main pulmonary artery and right and left pulmonary arteries. Normal enhancement of the bilateral peripheral pulmonary arteries. There is no demonstrated pulmonary embolism. Minimal atherosclerotic changes of the descending aorta without aneurysm. There is no demonstrated aortic dissection. Normal heart and pericardium. Normal mediastinum. Normal hilar regions. Normal visualized trachea and bronchi. The lungs are hyper expanded, with flattening of the hemidiaphragms. Minimal dependent changes in the right posterior costophrenic angle. Normal pulmonary parenchyma. Normal pleura. Normal chest wall structures. There are degenerative changes of thoracic spine. Normal visualized upper abdomen. CT/CTA Chest W/WO Contrast IMPRESSION: 1. No evidence of pulmonary embolus. 2. No aortic dissection or aneurysm. There is mild atherosclerotic changes of the descending aorta. 3. Dependent changes right lung base without other evidence of pulmonary abnormality. 4. Degenerative changes of the thoracic spine. Electronically Signed: Ethan Kline DO at 17:51 EDT Tel [phone], Service support ,
[2017-11-20] MEDS: HYDROcodone Bitartrate/Apap 5/325 Tablet PO ×2 (17:53→20:24)
--- NOTE | 2017-11-20 18:55 | RAD_ITS ---
STUDY: X-RAY - RIGHT FOOT CLINICAL: Female, 72 years old. Pain. TECHNIQUE: 2 view(s) of the foot. COMPARISON: October 30, 2017. FINDINGS: There is a plantar calcaneal spur. Normal talus and tarsal bones. Normal visualized subtalar, talonavicular, calcaneocuboid, tarsal and tarsometatarsal articulations. Normal metatarsi. There is degenerative arthrosis of the metatarsophalangeal joint of the hallux . Normal tibial and fibular sesamoid bones. Normal interphalangeal joint of the great toe. Normal phalanges of the great toe. Normal second through fifth metatarsophalangeal joints. Normal interphalangeal joints and phalanges of the lesser toes. The soft tissue structures are unremarkable. RAD/Foot 2 Views IMPRESSION: No acute abnormality or interval change. Electronically Signed: Ethan Kline DO at 19:06 EDT Tel [phone], Service support ,
[2017-11-20] MEDS: MELATONIN 10 MG TABLET 5 MG PO (22:23)
[2017-11-20] MEDS: Pregabalin 75 MG Capsule 150 MG PO (22:29)
[2017-11-20 22:36] LABS: Bedside Glucose 224 mg/dL (70-110)
[2017-11-21 03:10] VITALS: BP 124/53; PULSE 68; RESP 20; TEMP 36.6; O2SAT 96
[2017-11-21 03:28] VITALS: PULSE 62
--- NOTE | 2017-11-21 05:55 | EKG12_ITS ---
Test Reason : AM EKG Blood Pressure : / mmHG Vent. Rate : 061 BPM Atrial Rate : 061 BPM P-R Int : 146 ms QRS Dur : 084 ms QT Int : 424 ms P-R-T Axes : 027 046 062 degrees QTc Int : 426 ms Normal sinus rhythm Normal ECG When compared with ECG of 20-NOV-2017 04:37, MANUAL COMPARISON REQUIRED, DATA IS UNCONFIRMED Confirmed by DORIS BALDERRAMA, RHONA ([id number]), writer editor MARS CUELLO ([id number]) on 11/24/2017 1:57:52 PM Referred By: MARISELA Confirmed By:RHONA GEORGE MD
[2017-11-21 05:56] VITALS: BP 143/66; PULSE 72; RESP 18; TEMP 36.6; O2SAT 97
[2017-11-21] MEDS: Aspirin 81 MG TAB.CHEW 162 MG PO (06:02)
[2017-11-21] MEDS: HYDROcodone Bitartrate/Apap 5/325 Tablet PO (06:02)
[2017-11-21] MEDS: Lisinopril 20 MG Tablet PO (06:02)
[2017-11-21 06:10] LABS: Bedside Glucose 201 mg/dL (70-110)
[2017-11-21 06:23] LABS: Hematocrit 33.1 % (37-47); Hemoglobin 10.5 g/dl (12.0-15.0); Mean Corp Hgb Conc 31.7 g/gl (32-36); Mean Corpuscular Hgb 26.7 pg (27.0-32.0); Mean Corpuscular Volume 84.2 fL (81-99); Mean Platelet Vol. 12.2 fl (6.2-12.0); Platelet Count 146 K/mm3 (150-450); RBC Distribution Width CV 15.7 % (11.6-14.6); RBC Distribution Width SD 47.6 fl (35.1-43.9); Red Blood Count 3.93 M/mm3 (4.2-5.4); White Blood Count 3.8 K/mm3 (4.4-11.0)
[2017-11-21 06:27] LABS: Partial Thromboplast Time 29.7 Seconds (24.1-36.2)
[2017-11-21 06:33] LABS: Scan Indicated on CBC? Y/N NO
[2017-11-21 06:47] LABS: Anion Gap 10 (5-15); BUN 18 mg/dL (7-18); BUN/Creat Ratio 14.5 RATIO (10-20); Calcium,Total 8.3 mg/dL (8.5-10.1); Chloride 106 mmol/L (98-107); Creatinine, Serum 1.24 mg/dL (0.55-1.02); EST Glomerular Filtration Rate 45 mL/min (>60); Est Glom Filt Rate - Afr Amer 55 mL/min (>60); Glucose 215 mg/dL (74-106); Magnesium 1.1 mg/dL (1.6-2.6); Potassium 3.9 mmol/L (3.5-5.1); Sodium Level 143 mmol/L (136-145)
[2017-11-21 06:50] LABS: Prothrombin Time (Protime)PT. 12.9 SECONDS (11.7-14.9)
[2017-11-21 08:45] VITALS: BP 154/70; PULSE 68; RESP 16; TEMP 35.9; O2SAT 97
[2017-11-21] MEDS: Insulin Lispro 100 UNIT/ML INSULN.PEN SC ×2 (08:54→12:55)
[2017-11-21] MEDS: Insulin Lispro 100 UNIT/ML INSULN.PEN 12 UNIT SC ×2 (08:54→12:56)
[2017-11-21 09:00] LABS: Bedside Glucose 256 mg/dL (70-110)
--- NOTE | 2017-11-21 09:23 | STRESSREP ---
Stress Test Report Pharmacologic myocardial perfusion stress test. 72-year-old lady with a history of syncope. Stress protocol. Resting EKG demonstrates sinus rhythm with rate of 63 beats minute normal intervals and noted resting blood pressure was 98/62 mmHg 0.4 mg regadenoson was infused per usual protocol followed by rapid intravenous saline flush injection continuous EKG monitoring was performed the patient maintained sinus rhythm throughout the recording the maximum heart rate attained was 90 bpm which was 60% of maximum predicted heart rate a workload of 1 metabolic equivalent. At rest there were no ST or T-wave changes noted suggest abnormal flow reserve at peak infusion no ST or T-wave changes were noted suggest abnormal flow reserve the resting blood pressure is 98/62 with a final blood pressure 102/64 mmHg. Myocardial perfusion protocol. 11.9 mCi of technetium 99m sestamibi was injected at rest. 0.4 mg regadenoson was infused per usual protocol peak infusion 33.5 mCi of technetium 99m sestamibi was injected stress images were obtained stress and rest images were reconstructed and compared in the short axis vertical long horizontal long axis. Gated images were also obtained pre- Perfusion SPECT analysis: Review of the stress images demonstrate normal uptake of tracer noted in all areas of myocardium. The resting images similarly demonstrate normal uptake of tracer noted in all areas myocardium. No areas of reversibility are noted suggest ischemia no previous infarct is noted. Gated SPECT analysis. The gated ejection fraction is noted to be 80%. Conclusion: Normal pharmacologic myocardial perfusion stress test with no evidence of ischemia. Preserved ejection fraction.
--- NOTE | 2017-11-21 09:30 | PCM.DC ---
- Discharge Diagnoses Current Active Problems: Current Active and Chronic Problems (Last Reviewed 11/13/17 @ 12:25 by Cem Rice MD) Syncope (Acute) You will use the following diet at home:: Calorie/Carbohydrate Controlled (specify 1200, 1400, etc) - 1800 Discharge Activity: Return to Normal Activity, May not drive while taking narcotic pain medications. Allergies/Adverse Reactions: Allergies duloxetine [From Cymbalta] Allergy (Verified 11/19/17 15:18) Unknown linagliptin [From Tradjenta] Allergy (Verified 11/19/17 15:18) Hives oxycodone [From OxyContin] Allergy (Verified 11/19/17 15:18) Rash Medications to take at Discharge Benazepril/Hydrochlorothiazide [Benazepril-Hctz 20-25 mg Tab] 1 tablet PO DAILY 02/21/17 Cholecalciferol (VIT D3) [Vitamin D3] 5,000 unit PO DAILY 02/21/17 Omeprazole [Prilosec] 1 capsule PO DAILY 02/21/17 allopurinol 100 mg tablet 1 tab PO BID tab 08/15/17 ergocalciferol (vitamin D2) 50,000 unit capsule 1 cap PO QWEEK 08/15/17 insulin detemir (U-100) 100 unit/mL (3 mL) subcutaneous pen 50 unit SC QHS ml 08/15/17 insulin lispro (U-100) 100 unit/mL subcutaneous pen See Label Instructions SC TID ml 08/15/17 omega-3 fatty acids 1,000 mg capsule 1 cap PO QDAY 08/15/17 potassium 99 mg tablet 99 mg PO QDAY 08/15/17 aspirin 81 mg tablet,delayed release 2 tab PO BID tab 09/28/17 Blood Sugar Diagnostic [Assure Prism Multi] 0 applic .ROUTE .MEDSUPPLY 10/18/17 Hydrocodone Bitart/Apap 5-325 [[place] 5/325] 1 tablet PO Q6H PRN PRN 3 Days #10 tablet 10/18/17 Caltrate Gummy Bites 1 tablet PO DAILY 10/30/17 Folic Acid 1 tablet PO DAILY 10/30/17 Furosemide [Lasix] 1 tablet PO DAILY 10/30/17 Primary Care Physician: Марина Weir MD [Primary Care Provider] - Please follow up with your Primary Care Physician in: in 5-7 days Test Results: Test results from this visit will be discussed in further detail at your follow-up appointment, if applicable. Proposed Discharge Date: 11/21/17
[2017-11-21 09:31] VITALS: BP 150/65; PULSE 61; RESP 16; TEMP 36.4; O2SAT 97
--- NOTE | 2017-11-21 09:33 | DCINST_ITS ---
- Discharge Diagnoses Current Active Problems: Current Active and Chronic Problems (Last Reviewed 11/13/17 @ 12:25 by Cem Rice MD) Syncope (Acute) You will use the following diet at home:: Calorie/Carbohydrate Controlled ( specify 1200, 1400, etc) - 1800 Discharge Activity: Return to Normal Activity, May not drive while taking narcotic pain medications. Allergies/Adverse Reactions: Allergies duloxetine [From Cymbalta] Allergy (Verified 11/19/17 15:18) Unknown linagliptin [From Tradjenta] Allergy (Verified 11/19/17 15:18) Hives oxycodone [From OxyContin] Allergy (Verified 11/19/17 15:18) Rash Medications to take at Discharge Benazepril/Hydrochlorothiazide [Benazepril-Hctz 20-25 mg Tab] 1 tablet PO DAILY 02/21/17 Cholecalciferol (VIT D3) [Vitamin D3] 5,000 unit PO DAILY 02/21/17 Omeprazole [Prilosec] 1 capsule PO DAILY 02/21/17 allopurinol 100 mg tablet 1 tab PO BID tab 08/15/17 ergocalciferol (vitamin D2) 50,000 unit capsule 1 cap PO QWEEK 08/15/17 insulin detemir (U-100) 100 unit/mL (3 mL) subcutaneous pen 50 unit SC QHS ml 08/15/17 insulin lispro (U-100) 100 unit/mL subcutaneous pen See Label Instructions SC TID ml 08/15/17 omega-3 fatty acids 1,000 mg capsule 1 cap PO QDAY 08/15/17 potassium 99 mg tablet 99 mg PO QDAY 08/15/17 aspirin 81 mg tablet,delayed release 2 tab PO BID tab 09/28/17 Blood Sugar Diagnostic [Assure Prism Multi] 0 applic .ROUTE .MEDSUPPLY 10/18/17 Hydrocodone Bitart/Apap 5-325 [[place] 5/325] 1 tablet PO Q6H PRN PRN 3 Days #10 tablet 10/18/17 Caltrate Gummy Bites 1 tablet PO DAILY 10/30/17 Folic Acid 1 tablet PO DAILY 10/30/17 Furosemide [Lasix] 1 tablet PO DAILY 10/30/17 Primary Care Physician: Марина Weir MD [Primary Care Provider] - Please follow up with your Primary Care Physician in: in 5-7 days Test Results: Test results from this visit will be discussed in further detail at your follow- up appointment, if applicable. Proposed Discharge Date: 11/21/17
--- NOTE | 2017-11-21 09:33 | PCM.DC.SUM ---
Discharge Date and Diagnosis - Problem List Patient Problems: Active and Suspected Problems (Last Reviewed 11/13/17 @ 12:25 by Cem Rice MD) Syncope (Acute) Date of Admission: 11/19/17 Date of Discharge: 11/21/17 - Primary Discharge Diagnosis Active and Suspected Problems (Last Reviewed 11/13/17 @ 12:25 by Cem Rice MD) Syncope (Acute) - Secondary Discharge Diagnosis Chronic Problems (Last Reviewed 11/13/17 @ 12:25 by Cem Rice MD) Hyperlipemia (Chronic) GERD (gastroesophageal reflux disease) (Chronic) Gout (Chronic) HTN (hypertension) (Chronic) Osteoporosis (Chronic) Patient discontinued her biphosphanate Does not explain why. Wishes to discuss diabetes and thyroid today. Controlled type 2 diabetes mellitus with insulin therapy (Chronic) Reports long standing control until recent illness. Today she reports she used to use her sliding scale. We discussed using this anytime she become ill to avoid her having high BG. Today her Bg have extrem varied numbers. She does mention she goes to exercise 3 times a week which probably causes her low BG days. She also has two different breakfast regimens. One would need more insulin than the other as it contins fruit and the other is mostly protin. We discussed these issues and she is enc to make insulin adjustment for exercise and diet changes. Thyroid goiter (Chronic) Patient has known thyroid goiter . Has multiple nodules and I will refer to surgeon Hospital Course and Treatment Imaging Results: 0 Clinical Impression(s) from Imaging Studies Brain CT 11/19/17 15:29 IMPRESSION: 1. Chronic involutional changes of the brain. 2. No CT evidence of acute intracranial hemorrhage. Electronically Signed: Susan Mccabe MD at 16:26 EDT , Service support , Chest X-Ray 11/19/17 15:30 IMPRESSION: Normal x-ray examination of the chest. Electronically Signed: Oscar Rachel MD at 17:23 EDT , Service support , Chest CTA 11/20/17 17:13 IMPRESSION: 1. No evidence of pulmonary embolus. 2. No aortic dissection or aneurysm. There is mild atherosclerotic changes of the descending aorta. 3. Dependent changes right lung base without other evidence of pulmonary abnormality. 4. Degenerative changes of the thoracic spine. Electronically Signed: Ethan KlineDO at 17:51 EDT Tel [phone], Service support , Foot X-Ray 11/20/17 18:55 IMPRESSION: No acute abnormality or interval change. Electronically Signed: Ethan EliudDO at 19:06 EDT Tel [phone], Service support , Operations: None Summary of Care Provided: Patient is a 72-year-old lady with past medical history is none for hypertension, diabetes mellitus type 2 admitted following a syncopal episode associated with the patient was noted to have indeterminate troponin. Admitted to a monitored bed where patient has since been managed 1. Acute syncopal episode of unknown etiology. Patient has been managed continuously on telemetry with no pathological arrhythmias found. As part of his management and EEG and carotid ultrasound were ordered by the admitting physician. With patient having indeterminate troponin ordered a d-dimer back positive subsequently ordered a CTA of the chest which was negative for PE. Patient also underwent a nuclear stress test performed on 11/21/2017 which was negative for stress-induced ischemia. 2. Hypokalemia corrected per protocol 3. Acute kidney injury patient is on HCTZ as well as Lasix held on admission managed with IV fluids with monitoring of electrolyte 4. Diabetes mellitus type 2; on long-acting insulin dose adjusted on admission and patient subsequently placed on Accu-Cheks before meals and at bedtime with sliding scale coverage 5. 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 GERD 7. Hypertension-blood pressure controlled, home medications continued with dose adjustment as needed 8. History of gout 9. DVT prophylaxis SC Lovenox Discharge Diet: 1800 Calorie Control Diet Discharge Activity: Return to Normal Activity, May not drive while taking narcotic pain medications. Home Medications: Medications to take at Discharge Benazepril/Hydrochlorothiazide [Benazepril-Hctz 20-25 mg Tab] 1 tablet PO DAILY 02/21/17 Cholecalciferol (VIT D3) [Vitamin D3] 5,000 unit PO DAILY 02/21/17 Omeprazole [Prilosec] 1 capsule PO DAILY 02/21/17 allopurinol 100 mg tablet 1 tab PO BID tab 08/15/17 ergocalciferol (vitamin D2) 50,000 unit capsule 1 cap PO QWEEK 08/15/17 insulin detemir (U-100) 100 unit/mL (3 mL) subcutaneous pen 50 unit SC QHS ml 08/15/17 insulin lispro (U-100) 100 unit/mL subcutaneous pen See Label Instructions SC TID ml 08/15/17 omega-3 fatty acids 1,000 mg capsule 1 cap PO QDAY 08/15/17 potassium 99 mg tablet 99 mg PO QDAY 08/15/17 aspirin 81 mg tablet,delayed release 2 tab PO BID tab 09/28/17 Blood Sugar Diagnostic [Assure Prism Multi] 0 applic .ROUTE .MEDSUPPLY 10/18/17 Hydrocodone Bitart/Apap 5-325 [[place] 5/325] 1 tablet PO Q6H PRN PRN 3 Days #10 tablet 10/18/17 Caltrate Gummy Bites 1 tablet PO DAILY 10/30/17 Folic Acid 1 tablet PO DAILY 10/30/17 Furosemide [Lasix] 1 tablet PO DAILY 10/30/17 Primary Care Physician: Марина Weir MD [Primary Care Provider] - Please follow up with your Primary Care Physician in: in 5-7 days Disposition: Home Minutes spent on discharge:: 35 Patient Condition:: Stable Medical Necessity - Tobacco Use Smoking Status: Never smoker Tobacco Use: Non-smoker Meaningful Use Info Meaningful Use Diagnoses (Choose all that apply): None applicable Code Visit OBSV E&M: 61449 Observation care discharge
[2017-11-21] MEDS: Pregabalin 75 MG Capsule 150 MG PO (10:11)
[2017-11-21] MEDS: Pantoprazole Sodium 20 MG Tablet PO (10:11)
--- NOTE | 2017-11-21 10:55 | CASEMGMT ---
This ANSLEY HUNTER to room with SMITH form, explanation done and pt signed form at this time. Pt voices no further questions/concerns at this time. Original to chart and pt declines a copy at this time. SStmarilyn PANCHAL CM
[2017-11-21 11:00] VITALS: PULSE 71
--- NOTE | 2017-11-21 14:06 | EEG ---
- Electroencephalogram Date of service 11/20/17 History EEG is being done in this 72 yr F to rule out seizures EEG Description: This is an 18 channel EEG with 10-20 lead placement system. Bipolar montages, Referential and Circumferential montages were reviewed. Photic stimulation and Hyperventilation were performed. The posterior dominant background rhythm is 8 HZ synchronous, symmetric, reacting to eye opening and closing. Photo stimulation elicited normal driving response but no abnormal photoparoxysmal response, Hyperventilation did not elicit any abnormal photoparoxysmal response. Sleep was identified. There was no epileptiform discharges or electrographic seizures noted during this recording. EEG Interpretation This is a normal awake and asleep EEG. There is no epileptiform discharges or electrographic seizures noted during the record.
[2017-11-22 07:41] LABS: Bedside Glucose 242 mg/dL (70-110)
== END 2017-11-21 09:31 | disposition home or self-care (01) ==
LOC: ED 16:40 → PCU 17:13
PROVIDERS: Admitting Provider Internal Medicine; Emergency Provider Emergency Medicine; Family Provider Family Medicine; PCP Family Medicine; Visit Provider Internal Medicine
DX: R55 Syncope and collapse (principal); E78.5 Hyperlipidemia, unspecified; K21.9 Gastro-esophageal reflux disease without esophagitis; M81.0 Age-related osteoporosis without current pathological fracture; M10.9 Gout, unspecified; E04.9 Nontoxic goiter, unspecified; N17.9 Acute kidney failure, unspecified; E87.6 Hypokalemia; M21.371 Foot drop, right foot; M19.90 Unspecified osteoarthritis, unspecified site; I12.9 Hypertensive chronic kidney disease with stage 1 through stage 4 chronic kidney disease, or unspecified chronic kidney disease; E11.22 Type 2 diabetes mellitus with diabetic chronic kidney disease; N18.9 Chronic kidney disease, unspecified; K58.9 Irritable bowel syndrome, unspecified; E11.40 Type 2 diabetes mellitus with diabetic neuropathy, unspecified; Z79.899 Other long term (current) drug therapy; Z79.82 Long term (current) use of aspirin; Z79.4 Long term (current) use of insulin; G31.9 Degenerative disease of nervous system, unspecified; R51 Headache; R11.0 Nausea; R42 Dizziness and giddiness; M48.00 Spinal stenosis, site unspecified; I70.0 Atherosclerosis of aorta; I51.7 Cardiomegaly; R94.4 Abnormal results of kidney function studies; I34.0 Nonrheumatic mitral (valve) insufficiency; R07.9 Chest pain, unspecified
CPT/HCPCS: 36415; 70450; 71045; 71275; 73620; 78452; 80048; 82962; 83735; 84484; 85025; 85027; 85379; 85610; 85730; 93005; 93017; 93306; 93880; 95819; 96360; 96361; 96372; 97162; 97166; 99218; 99284; A9500; J7030; Q9967; A4216; G0378; J2785

== ENCOUNTER → 2017-12-12 07:42 | Outpatient (CLI) | payer MEDICARE, MEDICAID, SELFPAY ==
--- NOTE | 2017-12-12 07:57 | RAD_ITS ---
STUDY: X-RAY - LUMBAR SPINE REASON FOR EXAM: Female, 72 years old. Back and leg pain. TECHNIQUE: 3 view(s) of the lumbar spine were obtained. COMPARISON: None FINDINGS: Normal lumbar lordosis. There is a levoscoliosis of the lumbar spine. There is grade 1 anterior listhesis at L4-5 . There is diffuse demineralization with multi-level endplate spondylosis. There is L4-5 disc space narrowing. There is L4 and L5 laminectomy. There is no demonstrated fracture. The soft tissue structures are unremarkable. RAD/Lumbar Spine 2 or 3 Views IMPRESSION: Scoliosis with degenerative change. Electronically Signed: Nadeem Rubio MD at 21:38 EDT , Service support ,
== END ==
PROVIDERS: Family Provider Family Medicine; PCP Family Medicine; Visit Provider Anesthesiology Pain Medicine
DX: M43.16 Spondylolisthesis, lumbar region (principal)
CPT/HCPCS: 72100

== ENCOUNTER 2017-12-27 06:44 | Inpatient (IN) | payer MEDICARE, MEDICAID, SELFPAY ==
[2017-12-13 13:14] VITALS: BP 133/65; PULSE 69; RESP 16; TEMP 36.3; O2SAT 96; BMI 33.0
[2017-12-13 15:03] LABS: Absolute Lymphocyte Count 1.28 X10^3/ul (0.83-4.51); Absolute Neutrophil Count 5.8 X10^3/uL (2.0-7.7); Basophil# 0.01 X10^3/uL; Basophil% 0.1 % (0-1); Eosinophil# 0.02 X10^3/uL; Eosinophils% 0.3 % (0-5); Hematocrit 35.4 % (37-47); Lymphocyte # 1.28 X10^3/ul (4.0); Lymphocyte % 17.5 % (19-41); Mean Corp Hgb Conc 31.1 g/gl (32-36); Mean Corpuscular Hgb 27.3 pg (27.0-32.0); Mean Corpuscular Volume 87.8 fL (81-99); Mean Platelet Vol. 12.2 fl (6.2-12.0); Monocyte# 0.26 X10^3/uL; Monocyte% 3.5 % (0-10); Neutrophil # 5.75 X10^3/uL (2.7-7.7); Neutrophil % 78.5 % (47-70); POSITIVE COUNT NO; POSITIVE DIFFERENTIAL NO; POSITIVE MORPHOLOGY NO; Platelet Count 189 K/mm3 (150-450); RBC Distribution Width CV 18.3 % (11.6-14.6); RBC Distribution Width SD 58.3 fl (35.1-43.9); Red Blood Count 4.03 M/mm3 (4.2-5.4); White Blood Count 7.3 K/mm3 (4.4-11.0)
[2017-12-13 15:28] LABS: Hemoglobin A1c 6.5 % (4.2-6.3)
[2017-12-13 15:31] LABS: Anion Gap 8 (5-15); BUN 30 mg/dL (7-18); BUN/Creat Ratio 20.4 RATIO (10-20); Calcium,Total 8.7 mg/dL (8.5-10.1); Chloride 108 mmol/L (98-107); Creatinine, Serum 1.47 mg/dL (0.55-1.02); EST Glomerular Filtration Rate 37 mL/min (>60); Est Glom Filt Rate - Afr Amer 45 mL/min (>60); Estimated Creatinine Clearance 26.49 ml/min; Glucose 78 mg/dL (74-106); Potassium 3.7 mmol/L (3.5-5.1); Sodium Level 144 mmol/L (136-145); Thyroid Stim Hormone (TSH) 0.62 uIU/mL (0.358-3.74)
--- NOTE | 2017-12-14 10:03 | PCM.HP.BLA ---
History and Physical DATE OF SURGERY: 12/27/2017 SCHEDULED PROCEDURE: Right total knee arthroplasty HISTORY OF PRESENT ILLNESS: This is a 72-year-old female who has been having ongoing pain in the right knee for several years. Patient states her pain is primarily in the posterior aspect and over the medial joint line. Patient states her pain is sharp and stabbing. Pain does wake her at night. She has increased pain going up and down stairs, walking any amount of distance. Patient states she has difficult time with activities of daily living including housework and shopping. 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 Patient has tried conservative measures including physical therapy and home exercises without pain. She has tried [id number] Tylenol without pain. Patient has been using a cast. Patient has been on [place] as well without significant relief in symptoms. Patient has had previous corticosteroid injections in the knee with no relief in symptoms. She denies surgery on her right knee in the past. Patient does have a history of 2 previous back surgeries and states she has had nerve damage from 2011. Patient does have a dropfoot on the right. Patient has been in pain management with Dr. Pham. She has had previous low back injections on December 12, 2017 in which she has not seen significant improvements yet. Patient also has a medical history pertinent for hypertension, diabetes, previous gout, kidney disease renal failure. Patient states she has 65% function in her kidneys. She also states recently over the past couple months she had a stroke behind her right eye. Patient is unable to tell me what her diagnosis was. I assume she had a retinal artery occlusion. Patient was placed on aspirin by her primary care physician. Patient currently denies any chest pain, shortness of breath, fevers chills, recent infections. Patient is following up with her primary care physician on December 13, 2017 for surgical clearance. After failing conservative measures and discussing all treatment options with Dr. Smith Gannon, the patient would like proceed with a right total knee arthroplasty. REVIEW OF SYSTEMS: ROS: Const: Reports weight change, but denies anorexia, anxiety, change in appetite, fever, hard of hearing and vision problems. CV: Denies chest pain, heart murmur, irregular heartbeat and peripheral vascular disease. Resp: Denies asthma, cough, pneumonia, sleep apnea, SOB, tuberculosis and wheezing. GI: Denies constipation, diarrhea, difficulty swallowing, heartburn, nausea, bloody stools and vomiting. : Urinary: denies incontinence. Musculo: Reports leg swelling, but denies limp, trouble walking and weakness. Skin: Denies Raynaud's, history of shingles and tattoo. Neuro: Reports numbness/tingling but denies ambulatory dysfunction, dizziness and tremor. Psych: Reports stress, but denies anxiety, depression, insomnia and mental illness. Trae/Lymph: Reports anemia, but denies bleeding/bruising tendency and past transfusion. Reviewed and updated. PAST MEDICAL HISTORY: Advance Care Plan: Other Directive, LIVING WILL Effective Date: 08/19/2016 PMH: Medical Problems: Arthritis, High Blood Pressure, Diabetes, Gout, Nodules On Thyroid, Kidney Disease/Renal Failure Accidents: None Surgical Hx: Gallbladder, Appendectomy, Tubal Ligation, Vertebral & Sciatica SX LT CTR - (06/16/2014) [email or web address] Bilat Cataract LT TKR - (02/28/2017) SAW @ [facility] Anesthesia Complications: None Assistive Devices: Glasses, Dentures, Cane Reviewed and updated. SOCIAL HISTORY: SH: Marital: Single.Occupation: Retired.Work Status: Retired.Hand Dominance: Right-Handed. Personal Habits: Cigarette Use: Never.Alcohol: Denies use.Drug Use: Denies Use.Enjoy Exercising: , Exercises 1-3 x/month. Reviewed, no changes. VITALS: Ht: 61.5 Wt: 178lb Wt k.741 BMI: 33.1 BP: 138/80 Pulse: 71 Resp: 20 T: 98.1 T: 36.7C ALLERGIES: Oxycontin Tradjenta Percocet MEDICATIONS: Ferrousul 325 (65 Fe) MG 1 tab PO daily, Allopurinol 100 mg prn, Benazepril HCL/Hydrochlorothiazide 20-25 mg 1 tab PO daily, Levemir Flexpen 100 Unit/ML 40 units sq qhs, Lyrica 100 mg 1 cap PO bid, Aspirin 81 mg 3 tabs PO bid, Humalog 100 Unit/ML 18 units sq qam, 18 units AT lunch and 22 units AT supper, Vitamin D3 1000 Unit 1 cap by mouth once daily, Citracal Plus 1 tab PO daily, Omeprazole 20 mg 1 by mouth every day, Fish Oil 1 cap PO daily PRE-OP EXAM: General appearance:NORMAL Other: Eyes: Conjunctivae and lids: NORMAL Pupils: ERR Ears, Nose, Mouth, and Throat: NORMAL Other: Inspection of lips, teeth and gums: NORMAL Other: Neck: Examination of neck: no masses noted. Respiratory: Assessment of respiratory effort: NORMAL Other: Auscultation of lungs: clear to auscultation no wheezes, rhonchi or rales. Cardiovascular: Auscultation of heart: regular rate and rhythm, positive murmur Exam of carotid arteries: NORMAL Other: Gastrointestinal: Exam of abdomen: soft, nontender, nondistended bowel sounds present. PHYSICAL EXAMINATION: Patient walks with an antalgic gait. She does have effusion to the right knee. There is tenderness to palpation of the medial joint line, lateral joint line, and posterior right knee. Patient has partial correctable varus alignment. Range of motion of the right knee: Lacks 5 of full extension to 100 of flexion. Patient has dropfoot on the right. Patient is able to actively dorsiflex but does have decreased strength on testing. She does wear the drop foot brace. IMAGING STUDIES: X-rays were obtained at [facility] on November 23, 2017 of the right knee which reveals varus alignment with medial joint space narrowing, subchondral sclerosis, and osteophyte formation consistent with severe tricompartmental osteoarthritis. IMPRESSION: 1. Severe right knee tricompartmental osteoarthritis 2. Hypertension 3. Type 2 diabetes mellitus 4. History of gout 5. Kidney disease renal failure: 65% functioning kidneys per patient 6. Nodules on thyroid 7. Patient right eye stroke: Suspect retinal artery occlusion PLAN: Dr. Gannon did discuss and review with the patient all treatment options including surgical versus nonsurgical options. Patient does wish to proceed with the above-stated procedure. Potential risks, benefits, and complications of the procedure were discussed in detail including but not limited to , infection, nerve and blood vessel damage, persistent pain, numbness, tingling, paresthesias, blood clot, pulmonary embolism, and requirement for possible further surgery. The patient expressed full understanding and has no further questions for the doctor. Patient does agree to proceed with the above-stated procedure and has signed the surgery consent form. We will be obtaining medical clearance by primary care physician Dr. Марина Weir. Also appreciate input about stopping her aspirin prior to surgery. ___ I have re-examined the patient. There are no clinical changes since date of exam. ___ See progress notes for changes. ___ Dictated on admission Date: Time: Signature:
--- NOTE | 2017-12-20 12:36 | CASEMGMT ---
Call placed to patient regarding discharge needs after upcoming surgery. Patient lives in a one story home, no steps inside or outside the home. Granddaughter is coming to pt's home to assist with needs after surgery. Patient has a walker with wheels and a seat, a cane, shower seat and rails near shower. Patient questioning whether a standard walker would be best. Reports that son has a BSC that patient may borrow to aide in toileting when there's no one at home to assist. Patient reports that she does not have any outpatient therapy set up and does not have transportation available. Previously had in-home PT but unable to remember which agency. Patient has an aide set up to come to home 3x/week to assist with cleaning s/p surgery, unsure of which agency the aide is through. Patient reports that a man comes periodically and checks her vitals but is unsure if it's through [employer] or not. Patient is planning to call [employer] today as she has questions for them.
[2017-12-27] VITALS (13 sets, daily range): BP systolic 110–155; BP diastolic 44–83; PULSE 60–76; RESP 14–18; TEMP 35.7–36.4; O2SAT 97–100; BMI 33.0
--- NOTE | 2017-12-27 06:54 | PCM.OPRPT ---
Report of Operation Date of Procedure: 12/27/17 Pre-Operative Diagnosis: Right knee primary osteoarthritis Post-Operative Diagnosis: Right knee primary osteoarthritis Surgery/Procedure Performed:: Right total knee replacement Description of Surgical Findings:: Stable knee with good patella tracking senior systems developer: Andrew Hall Type of Anesthesia:: Spinal Anesthesiologist: Jean Pierce Special Medications: 2 g Ancef, 1 g TXA at incision, 1 g TXA closure, 10 mg Decadron, joint cocktail (5 mg Duramorph, 30 mL of 0.5% Ropivicaine, 1000 units of epinephrine, 30 mg of Toradol) Specimen's removed: Bony cuts Estimated Blood Loss (mL): 200 Fluids Replaced: 1200 milliliters crystalloid Description of Procedure: Implants used: 1. Janiya size 2 triathlon cruciate retaining distal femoral component 2. [place] size 2 universal tibial baseplate 3. [place] X3 11 mm CS polyethylene 4. Janiya X3 29 mm asymmetric patella Brief history operative indications: 72-year-old F with history of right knee osteoarthritis with radiographic findings with loss of joint space, osteophyte formation and subchondral sclerosis. Failed conservative measures as mentioned in the H&P. Discussion of total knee arthroplasty as well as risk and benefits were discussed the patient including but not limited to blood loss, DVTs, PEs, neurovascular damage, general risk of anesthesia including loss of life, and stiffness or instability were discussed with patient. Patient demonstrated understanding and was able to sign informed consent. Procedure: On the date of procedure patient's right lower extremity was marked in the preoperative area. The patient was then taken back to the operating room where the patient was placed on the table in the supine position. All bony prominences were identified a well-padded. Anesthesia assumed control of the C-spine and airway and remained controlled throughout the remainder of the procedure. A tourniquet was placed on the right upper thigh and the leg was prepped in a sterile fashion. The surgeon then scrubbed at this time. Upon reentering the room the right lower extremity was draped in a standard orthopedic fashion. A timeout was then called and everyone agreed upon the side, the site, the procedure to be performed, patient's identity and antibiotics given. Esmarch bandage was used to exsanguinate the extremity and the tourniquet was placed up to 250 mmHg with the knee in flexion. A midline skin incision was made and sharp dissection was taken down through skin subcutaneous tissue and fat. The standard medial parapatellar incision was made and the patella was subluxed laterally. The standard deep MCL release was done and the fat pad was resected. Next our attention was directed to the femur. Navigation pins were placed, navigation was registered. The distal femoral cutting block was pinned into place and 8 mm of distal femur resection was completed. The distal femoral cut was verified with navigation. The knee was then placed in deep flexion in the standard [employer] sizing guide was used to place the femoral component in 3? external rotation based on the posterior condyles. A size 2 4-in-1 cutting block was selected and pinned into place. The anterior cut was then made and checked for notching. The subsequent anterior chamfer cuts, posterior condylar cuts and posterior chamfer cuts were made while ensuring the MCL and LCL were protected. Our attention was then turned to the tibia where the navigation pins were placed, navigation was registered. [employer] tibial cutting guide was used to make the appropriate tibial cut 90 degrees from the mechanical axis. Navigation was then used to verify the cut. A size 2 tibial base plate was selected. the knee was flexed to 90 degrees and the soft tissues and posterior osteophytes were removed from the joint. 40 cc of the periarticular injection was injected into the posterior medial corner of the joint. The appropriate trials were then placed on the femur and tibia. A trial polyethylene was trialed to ensure proper balancing and stability of the knee. Patella tracking, was then verified and corrected appropriately as needed. The appropriate tibial internal rotation was then marked with a bovie. Our attention was then directed to the patella. The patella was everted and a flat resection was made. The lug holes were drilled and the patella trial was placed. Patellar tracking was checked and deemed appropriate. Once we were happy lug holes were drilled for the femur and trial components were removed. the tibia was subluxed and pinned into place and the keel was punched and the canal was reamed. Final components were verified and opened, and cement was mixed in a vacuum. [place] Simplex cement was used. The wound was copiously irrigated with normal saline. When the cement was ready the components were cemented into place starting with the tibia, femur and finally the patella. The trial poly component was placed and the knee was placed in full extension. All excess cement was removed in the process. Once the cement had cured the tracking, alignment and balance were verified and a size 11 mm polyethylene component was placed. Once the final components were placed the wound was copiously irrigated with normal saline solution and the periarticular injection was given. The wound was closed in a layer moya fashion using #1 vicryl interrupted sutures for the arthrotomy, 2-0 interrupted Vicryl suture for the subcuticular layer and saroj for final skin closure. A sterile compressive dressing was then placed. The patient was then awakened from anesthesia, transferred to the [place] and transferred to the PACU for recovery. Post op plan DVT ppx: ASA 81mg, thigh high compression stockings Follow up: in office in 2 weeks for wound check PT: to start POD #0 at hospital, outpatient PT should be arranged. My physician assistant shift supervisor was a vital part of this case. He was important in appropriate retraction during the case, and protection of soft tissues during bony cuts. His intimate knowledge of the case and my steps aided in safe and expedient completion of the procedure as well as appropriate position of the leg during the case. He was also vital in assisting with closure under my direct supervision. Grafts/Implants Used: [place] triathlon - Complications NONE - Admit VTE Documentation VTE Present on Admission: No VTE Mechan Device Prophylaxis: SCD's, Thigh High BIANCA Hose VTE Pharm Prophylaxis ordered?: Yes
[2017-12-27] MEDS: Acetaminophen 500 MG Tablet 1000 MG PO ×3 (07:25→22:01)
[2017-12-27] MEDS: Celecoxib 200 MG Capsule 400 MG PO (07:25)
[2017-12-27 07:40] LABS: Bedside Glucose 195 mg/dL (70-110)
[2017-12-27] MEDS: Lactated Ringers 1,000 ML 999 ML IV (08:00)
[2017-12-27] MEDS: Cefazolin 2 GM in 0.9% Normal Saline 100 ML IV (08:51)
[2017-12-27] MEDS: Scopolamine 1mg/72hr Patch 1 PATCH TD (11:19)
[2017-12-27 11:20] LABS: Bedside Glucose 210 mg/dL (70-110)
[2017-12-27] MEDS: Lactated Ringers 1,000 ML 125 ML IV ×2 (12:11→18:34)
--- NOTE | 2017-12-27 12:47 | PCM.PN.HOSP ---
Subjective: 72 y/o female with PMHx of type 2 DM, hypertension, Hyperlipidemia. gout, osteoarthritis who comes in s/p right knee replacement. We have been consulted for medical management. Patient feels well. Pain is controlled. Denies fever, chills, SOB, chest pain, dizziness. She however wants her diet as regular diet as at home. Says her last HbA1c was 6.6. Vitals reviewed - stable Vitals/I&O's: Vital Signs Temp Pulse Resp BP Pulse Ox 97.1 F L 65 16 120/55 L 97 12/27/17 12:17 12/27/17 12:17 12/27/17 12:17 12/27/17 12:17 12/27/17 12:17 Oxygen Delivery Method Room Air Weight: 80.739 kg Body Mass Index (BMI) 33.0 Finger Stick Blood Glucose 210 Intake and Output for Last 24 Hours 12/25/17 12/26/17 12/27/17 23:59 23:59 23:59 Intake Total 1999 Balance 1999 General: Alert, Oriented x3, Cooperative, No apparent distress HEENT: Atraumatic, PERRLA, EOMI, Normocephalic Oral: Moist Mucosa Neck: Supple, No JVD, Negative Carotid Bruits Lungs: Clear to auscultation, Normal air movement Cardiovascular: Regular rate, Regular Rhythm, Normal S1, Normal S2, No murmurs Abdomen: Bowel Sounds Present, Soft, Non Tender, Non-Distended, No Hepato-splenomegaly Extremities: No edema Skin: No rashes, No breakdown Musculoskeletal: No Tenderness to Palpation of Joints or Extremities Lymphatic: No Cervical, Supraclavicular, or Inguinal Adenopathy Neurological: Cranial nerves II-XII grossly intact, Neuro grossly intact Psych/Mental Status: Normal Affect, Appropriate Laboratory Results 12/27/17 07:21: POC Glucose 195 H 12/27/17 11:13: POC Glucose 210 H Current Medications Acetaminophen (Tylenol) 1,000 mg PO Q8 [facility] Hydrocodone Bitart/Acetaminophen ([place] 5mg-325mg) 1 - 2 tablet PO Q6H PRN PRN PRN Reason: MODERATE PAIN (4-5/10) Allopurinol (Zyloprim) 100 mg PO BIDCM [facility] Aspirin (Aspirin, Baby) 81 mg PO BIDCM [facility] Cholecalciferol (Vitamin D) [facility] Famotidine (Pepcid) 20 mg PO DAILY [facility] Ferrous Sulfate (Ferrous Sulfate) 325 mg PO DAILYCM [facility] Folic Acid (Folic Acid) 0.5 mg PO DAILY@0800 [facility] Hydrochlorothiazide (Hctz) 25 mg PO DAILY [facility] Cefazolin Sodium () 1 gm in 50 mls @ 150 mls/hr IV Q8H [facility] Stop: 12/28/17 01:10 Lactated Ringer's () 1,000 mls @ 125 mls/hr IV .Q8H [facility] Last Admin: 12/27/17 12:11 Dose: 125 mls/hr Insulin Glargine (Lantus (Bkc)) 40 units SC QHS [facility] Insulin Human Lispro (Humalog Kwikpen (Bkc)) 18 unit SC BREAKFAST [facility] Insulin Human Lispro (Humalog Kwikpen (Bkc)) 18 unit SC LUNCH [facility] Insulin Human Lispro (Humalog Kwikpen (Bkc)) 22 unit SC SUPPER [facility] Lisinopril (Zestril) 20 mg PO DAILY [facility] Morphine Sulfate () 2 - 4 mg IV Q2H PRN PRN PRN Reason: SEVERE PAIN (6-10/10) Morphine Sulfate () 2 - 4 mg IV Q2H PRN PRN PRN Reason: SEVERE PAIN (6-10/10) Nutritional Formula (Lactose Free) (Glucerna Shake) 120 ml PO TIDCM [facility] Ondansetron HCl (Zofran) 4 mg IV Q8H PRN PRN PRN Reason: NAUSEA Pantoprazole Sodium (Protonix) 20 mg PO DAILY [facility] Pregabalin (Lyrica) 100 mg PO BID [facility] Promethazine HCl (Phenergan) 12.5 mg IM Q6H PRN PRN; Protocol PRN Reason: NAUSEA/VOMITING Senna/Docusate Sodium (Senokot-S, Mariluz-Colace) 2 tablet PO BID [facility] Sodium Chloride () 5 - 30 ml IV UD PRN PRN Reason: SALINE FLUSH Medical Necessity - Tobacco Use Smoking Status: Never smoker Assessment/Plan All Active Problems (Last Reviewed 11/13/17 @ 12:25 by Cem Rice MD) Syncope (Acute) 72 y/o female with PMHx of type 2 DM, hypertension, Hyperlipidemia. gout, osteoarthritis who comes in s/p right knee replacement. 1. POD #0, s/p Right TKA, pain is controlled, active management per orthopedics 2. Hypertension, controlled, continue home medication - Lisinopril, HCTZ, will continue to monitor. 3. Type II DM, on insulin, BS are uncontrolled, continue same insulin regimen 4. History of iron deficiency anemia on iron 5. Vitamin D deficiency, on p.o. vitamin D 6. H/o gout on allupurinol 7. DVT prophylaxis per orthopedic team, on aspirin twice daily Code Visit Inpatient E&M: 82087 Subs Hosp L2
[2017-12-27] MEDS: Lisinopril 20 MG Tablet PO (13:15)
[2017-12-27] MEDS: hydroCHLOROthiazide 25 MG Tablet PO (13:15)
[2017-12-27] MEDS: Senna/Docusate Sodium 1 Tablet 2 TABLET PO (13:16)
[2017-12-27] MEDS: Pregabalin 50 MG Capsule 100 MG PO ×2 (13:20→22:02)
[2017-12-27] MEDS: Ferrous Sulfate 325 MG Tablet PO (13:20)
[2017-12-27 13:21] LABS: Bedside Glucose 236 mg/dL (70-110)
[2017-12-27] MEDS: Insulin Lispro 100 UNIT/ML INSULN.PEN 18 UNIT SC (13:21)
[2017-12-27] MEDS: Glucerna Shake 120 ML LIQUID PO ×2 (13:23→16:57)
[2017-12-27] MEDS: Allopurinol 100 MG Tablet PO ×2 (13:32→18:34)
[2017-12-27] MEDS: Cefazolin 1 GM/50 ML BAG IV (16:49)
[2017-12-27] MEDS: Insulin Lispro 100 UNIT/ML INSULN.PEN 22 UNIT SC (16:50)
[2017-12-27] MEDS: Aspirin 81 MG TAB.CHEW PO (16:50)
[2017-12-27 16:55] LABS: Bedside Glucose 198 mg/dL (70-110)
[2017-12-27 22:30] LABS: Bedside Glucose 96 mg/dL (70-110)
[2017-12-28] MEDS: Cefazolin 1 GM/50 ML BAG IV (01:40)
[2017-12-28] MEDS: Lactated Ringers 1,000 ML 125 ML IV (03:03)
[2017-12-28 04:09] VITALS: BP 135/59; PULSE 71; RESP 18; TEMP 36.6; O2SAT 98
[2017-12-28] MEDS: Acetaminophen 500 MG Tablet 1000 MG PO ×3 (05:33→21:03)
[2017-12-28 06:51] LABS: Hematocrit 26.4 % (37-47); Hemoglobin 8.3 g/dl (12.0-15.0); Mean Corp Hgb Conc 31.4 g/gl (32-36); Mean Corpuscular Hgb 27.9 pg (27.0-32.0); Mean Corpuscular Volume 88.9 fL (81-99); Mean Platelet Vol. 11.8 fl (6.2-12.0); Platelet Count 132 K/mm3 (150-450); RBC Distribution Width CV 17.8 % (11.6-14.6); RBC Distribution Width SD 57.7 fl (35.1-43.9); Red Blood Count 2.97 M/mm3 (4.2-5.4); White Blood Count 5.9 K/mm3 (4.4-11.0)
[2017-12-28 07:01] LABS: Anion Gap 11 (5-15); BUN 28 mg/dL (7-18); BUN/Creat Ratio 20.9 RATIO (10-20); Calcium,Total 8.3 mg/dL (8.5-10.1); Chloride 106 mmol/L (98-107); Creatinine, Serum 1.34 mg/dL (0.55-1.02); EST Glomerular Filtration Rate 41 mL/min (>60); Est Glom Filt Rate - Afr Amer 50 mL/min (>60); Estimated Creatinine Clearance 29.06 ml/min; Glucose 247 mg/dL (74-106); Potassium 4.4 mmol/L (3.5-5.1); Scan Indicated on CBC? Y/N NO; Sodium Level 143 mmol/L (136-145)
--- NOTE | 2017-12-28 07:22 | PCM.PN.HOSP ---
Subjective: Patient was seen and examined. Pain is controlled. Denies any new complaints. Denies fever or chills Objective: Physical exam: General: Alert, Oriented x3, Cooperative, No apparent distress HEENT: Atraumatic, PERRLA, EOMI, Normocephalic Oral: Moist Mucosa Neck: Supple, No JVD, Negative Carotid Bruits Lungs: Clear to auscultation, Normal air movement Cardiovascular: Regular rate, Regular Rhythm, Normal S1, Normal S2, No murmurs Abdomen: Bowel Sounds Present, Soft, Non Tender, Non-Distended, No Hepato-splenomegaly Extremities: No edema Skin: No rashes, No breakdown Musculoskeletal: No Tenderness to Palpation of Joints or Extremities Lymphatic: No Cervical, Supraclavicular, or Inguinal Adenopathy Neurological: Cranial nerves II-XII grossly intact, Neuro grossly intact Psych/Mental Status: Normal Affect, Appropriate Vitals/I&O's: Vital Signs Temp Pulse Resp BP Pulse Ox 97.8 F 71 18 135/59 H 98 12/28/17 04:09 12/28/17 04:09 12/28/17 04:09 12/28/17 04:09 12/28/17 04:09 Oxygen Delivery Method Room Air Weight: 80.739 kg Body Mass Index (BMI) 33.0 Finger Stick Blood Glucose 210 Intake and Output for Last 24 Hours 12/26/17 12/27/17 12/28/17 23:59 23:59 23:59 Intake Total 2591 / 2591 1900 / 1900 Balance 2591 / 2591 1900 / 1900 Laboratory Results 12/27/17 07:21: POC Glucose 195 H 12/27/17 11:13: POC Glucose 210 H 12/27/17 13:12: POC Glucose 236 H 12/27/17 16:45: POC Glucose 198 H 12/27/17 21:59: POC Glucose 96 12/28/17 05:15: WBC 5.9, RBC 2.97 L, Hgb 8.3 L, Hct 26.4 L, MCV 88.9, MCH 27.9, MCHC 31.4 L, RDW 17.8 H, RDW Differential 57.7 H, Plt Count 132 L, MPV 11.8 12/28/17 05:15: Sodium 143, Potassium 4.4, Chloride 106, Carbon Dioxide 26.0, Anion Gap 11, BUN 28 H, Creatinine 1.34 H, Estim Creat Clear Calc 29.06, Est GFR (MDRD) Af Amer 50 L, Est GFR (MDRD) Non-Af 41 L, BUN/Creatinine Ratio 20.9 H, Glucose 247 H, Calcium 8.3 L Current Medications Acetaminophen (Tylenol) 1,000 mg PO Q8 [facility] Last Admin: 12/28/17 05:33 Dose: 1,000 mg Hydrocodone Bitart/Acetaminophen ([place] 5mg-325mg) 1 - 2 tablet PO Q6H PRN PRN PRN Reason: MODERATE PAIN (4-5/10) [facility]) [facility] Last Admin: 12/27/17 18:34 Dose: 100 mg Aspirin (Aspirin, Baby) [facility] Last Admin: 12/27/17 16:50 Dose: 81 mg Cholecalciferol (Vitamin D) 5,[facility] Last Admin: 12/27/17 13:32 Dose: 5,000 unit Famotidine (Pepcid) 20 mg PO DAILY [facility] Last Admin: 12/27/17 13:13 Dose: Not Given Ferrous Sulfate (Ferrous Sulfate) [facility] Last Admin: 12/27/17 13:20 Dose: 325 mg Folic Acid (Folic Acid) 0.5 mg PO DAILY@0800 [facility] Hydrochlorothiazide (Hctz) 25 mg PO DAILY [facility] Last Admin: 12/27/17 13:15 Dose: 25 mg Lactated Ringer's () 1,000 mls @ 125 mls/hr IV .Q8H [facility] Last Admin: 12/28/17 03:03 Dose: 125 mls/hr Insulin Glargine (Lantus (Bkc)) 40 units SC QHS [facility] Last Admin: 12/27/17 22:02 Dose: 40 u Insulin Human Lispro (Humalog Kwikpen (Bkc)) 18 unit SC BREAKFAST [facility] Insulin Human Lispro (Humalog Kwikpen (Bkc)) 18 unit SC LUNCH [facility] Last Admin: 12/27/17 13:21 Dose: 18 units Insulin Human Lispro (Humalog Kwikpen (Bkc)) 22 unit SC SUPPER [facility] Last Admin: 12/27/17 16:50 Dose: 22 units Lisinopril (Zestril) 20 mg PO DAILY [facility] Last Admin: 12/27/17 13:15 Dose: 20 mg Morphine Sulfate () 2 - 4 mg IV Q2H PRN PRN PRN Reason: SEVERE PAIN (6-10/10) Morphine Sulfate () 2 - 4 mg IV Q2H PRN PRN PRN Reason: SEVERE PAIN (6-10/10) Nutritional Formula (Lactose Free) (Glucerna Shake) 120 ml PO TIDCM [facility] Last Admin: 12/27/17 16:57 Dose: 120 ml Ondansetron HCl (Zofran) 4 mg IV Q8H PRN PRN PRN Reason: NAUSEA Pantoprazole Sodium (Protonix) 20 mg PO DAILY [facility] Pregabalin (Lyrica) 100 mg PO BID [facility] Last Admin: 12/27/17 22:02 Dose: 100 mg Promethazine HCl (Phenergan) 12.5 mg IM Q6H PRN PRN; Protocol PRN Reason: NAUSEA/VOMITING Senna/Docusate Sodium (Senokot-S, Mariluz-Colace) 2 tablet PO BID [facility] Last Admin: 12/27/17 22:00 Dose: Not Given Sodium Chloride () 5 - 30 ml IV UD PRN PRN Reason: SALINE FLUSH Medical Necessity - Tobacco Use Smoking Status: Never smoker Assessment/Plan All Active Problems (Last Reviewed 11/13/17 @ 12:25 by Cem Rice MD) Syncope (Acute) 72 y/o female with PMHx of type 2 DM, hypertension, Hyperlipidemia. gout, osteoarthritis who comes in s/p right knee replacement. 1. POD #1, s/p Right TKA, pain is controlled, active management per orthopedics 2. Hypertension, controlled, continue home medication - Lisinopril, HCTZ, will continue to monitor. 3. Type II DM, on insulin, BS are fairly controlled, continue same insulin regimen 4. Post-op anemia, hemoglobin is 8.3, dropped from 11.0, history of iron deficiency anemia, on iron, folic acid 5. Vitamin D deficiency, on p.o. vitamin D 6. H/o gout on allupurinol 7. CKD stage III, creatinine appears to be at her baseline, will continue to monitor 8. DVT prophylaxis per orthopedic team, on aspirin twice daily Code Visit Inpatient E&M: 80424 Subs Hosp L2
[2017-12-28] MEDS: Insulin Lispro 100 UNIT/ML INSULN.PEN 18 UNIT SC ×2 (07:44→11:39)
[2017-12-28] MEDS: Famotidine 20 MG Tablet PO (07:45)
[2017-12-28] MEDS: Aspirin 81 MG TAB.CHEW PO ×2 (07:45→17:30)
[2017-12-28] MEDS: Allopurinol 100 MG Tablet PO ×2 (07:45→17:32)
[2017-12-28] MEDS: Ferrous Sulfate 325 MG Tablet PO (07:46)
[2017-12-28] MEDS: Folic Acid 1 MG Tablet 0.5 MG PO (07:46)
[2017-12-28] MEDS: Pregabalin 50 MG Capsule 100 MG PO ×2 (07:50→21:04)
[2017-12-28 07:51] LABS: Bedside Glucose 183 mg/dL (70-110)
--- NOTE | 2017-12-28 09:27 | PCM.PN.ORT ---
Subjective: The patient was sitting in bedside chair upon examination. Patient denies any chest pain, shortness of breath, dizziness, lightheadedness, nausea or vomiting, or calf pain. No adverse overnight events. Patient is complaining of pain in the thigh. She is also complaining of pain in the right lower leg. She states she has been treated for right ankle pain by pain management. Patient has had 2 previous back surgeries and states she has had nerve damage from 2011. She also has right drop foot. Patient reports itching with oxycodone. However she has taken oxycodone again by Dr. Simmons and tolerated the medication well. She currently is only using Tylenol and does complain of pain. Objective: Vital signs stable and afebrile. Patient is able to plantarflex and dorsiflex actively. Patient does have history of drop foot on the right. She is able to actively dorsiflex but is weak. Patient does wear dropfoot brace. Sensation is intact to light touch to saphenous, sural, superficial and deep peroneal, and tibial distribution. Dressing is with drainage over the middle one third of the dressing, not contacting 3 borders. Distal dressing also with drainage. Negative Homans bilaterally, negative signs and symptoms of DVT. - Physical Exam General: Alert, Oriented x3, Cooperative, No apparent distress Vital Signs Temp Pulse Resp BP Pulse Ox 97.8 F 71 18 135/59 H 98 12/28/17 04:09 12/28/17 04:09 12/28/17 04:09 12/28/17 04:09 12/28/17 04:09 Oxygen Delivery Method Room Air Weight: 80.739 kg Body Mass Index (BMI) 33.0 Finger Stick Blood Glucose 210 Intake and Output for Last 24 Hours 12/26/17 12/27/17 12/28/17 23:59 23:59 23:59 Intake Total 2591 / 2591 1900 / 1900 Balance 2591 / 2591 1900 / 1900 Laboratory Tests Past 24 Hrs 12/28/17 12/28/17 05:15 05:15 WBC 5.9 RBC 2.97 L Hgb 8.3 L Hct 26.4 L MCV 88.9 MCH 27.9 MCHC 31.4 L RDW 17.8 H RDW Differential 57.7 H Plt Count 132 L MPV 11.8 Sodium 143 Potassium 4.4 Chloride 106 Carbon Dioxide 26.0 Anion Gap 11 BUN 28 H Creatinine 1.34 H Estim Creat Clear Calc 29.06 Est GFR (MDRD) Af Amer 50 L Est GFR (MDRD) Non-Af 41 L BUN/Creatinine Ratio 20.9 H Glucose 247 H Calcium 8.3 L POC Glucose 12/28/17 12/27/17 12/27/17 07:41 21:59 16:45 POC Glucose 183 H 96 198 H 12/27/17 12/27/17 13:12 11:13 POC Glucose 236 H 210 H Medical Necessity - Tobacco Use Smoking Status: Never smoker Assessment/Plan All Active Problems (Last Reviewed 11/13/17 @ 12:25 by Cem Rice MD) Syncope (Acute) 1. S/P right total knee arthroplasty POD #1 2. Continue Pain Medications: Tylenol, oxycodone was added. [place] was discontinued. Patient has had previous itching with oxycodone but has tolerated it the last time she took it. 3. DVT Prophylaxis: Aspirin 81 mg twice daily for 4 weeks 4. PT/OT: Weightbearing as tolerated 5. H & H: 8.3/26.4, asymptomatic 6. Encouraged Incentive Spirometry 7. Continue postoperative medical management per medicine 8. Disposition: Case management on board for discharge planning.
[2017-12-28] MEDS: oxyCODONE 5 MG Tablet PO ×3 (09:59→18:32)
[2017-12-28 10:27] VITALS: BP 136/64; PULSE 63; PULSE 70; RESP 18; TEMP 36.6; O2SAT 99
[2017-12-28] MEDS: hydroCHLOROthiazide 25 MG Tablet PO (10:39)
[2017-12-28] MEDS: Pantoprazole Sodium 20 MG Tablet PO (10:39)
[2017-12-28] MEDS: Lisinopril 20 MG Tablet PO (10:40)
--- NOTE | 2017-12-28 10:45 | CASEMGMT ---
ANSLEY HUNTER Face to Face with patient for initial transition planning/care coordination assessment. RN DALE introduced self and role at [facility]. Patient sitting in chair, alert and oriented. Patient willing to participate in assessment and is able to answer all questions appropriately. Care providers, pharmacy, and demographics verified. Pt wishes to discharge home and is requesting [facility] for therapy. Patient prefers [facility] for HHC services. Patient states she has no further needs or concerns at this time. RN CM made referral to [facility] and they are able to accept the patient. CM to follow for discharge planning needs that may arise. Disposition Plan: Patient to discharge home with [facility], family support, and follow-up plans in place. Marilynn SMITH, RN, CM
--- NOTE | 2017-12-28 11:18 | CASEMGMT ---
Social Work Note Pt has Passport Services. SW placed a call to [facility] in attempt to reach pt's CM. SW was sent to [employer] for rugby league footballer. MARVA left a message for rugby league footballer requesting a call back with pt's CM name and direct number. Marilynn Khan TANK BUILDER HELPER, MEDICATION NURSE
[2017-12-28] MEDS: Glucerna Shake 120 ML LIQUID PO (11:41)
[2017-12-28 11:45] LABS: Bedside Glucose 216 mg/dL (70-110)
[2017-12-28 14:11] VITALS: BP 133/61; PULSE 61; RESP 18; TEMP 36.7; O2SAT 97
--- NOTE | 2017-12-28 14:43 | CASEMGMT ---
Addendum entered by Marilynn Khan 12/28/17 14:50: Direct number for Compa Tobar [phone] Original Note: Social Work Note SW received message from Compa Tobar at [facility] as he is the Passport CM for pt. SW placed a call back to Compa and left him a message informing him that pt is being discharged tomorrow with [facility]. Marilynn Khan SKULL SPLITTER, SWIMMING COACH OR INSTRUCTOR
[2017-12-28 17:21] LABS: Bedside Glucose 120 mg/dL (70-110)
[2017-12-28] MEDS: Insulin Lispro 100 UNIT/ML INSULN.PEN 22 UNIT SC (17:31)
[2017-12-28 20:15] VITALS: BP 131/53; PULSE 71; RESP 20; TEMP 36.6; O2SAT 99
[2017-12-28] MEDS: Morphine 2 MG/ML Syringe IV ×2 (20:16→23:31)
[2017-12-28] MEDS: 0.9% NaCl Peripheral Flush Adult/Peds IV ×2 (20:18→23:31)
[2017-12-29 00:21] LABS: Bedside Glucose 238 mg/dL (70-110)
[2017-12-29 02:20] VITALS: BP 120/56; PULSE 77; RESP 16; TEMP 36.8; O2SAT 97
[2017-12-29] MEDS: Morphine 2 MG/ML Syringe IV (03:58)
[2017-12-29] MEDS: 0.9% NaCl Peripheral Flush Adult/Peds IV (03:58)
[2017-12-29] MEDS: Acetaminophen 500 MG Tablet 1000 MG PO ×3 (05:53→21:39)
[2017-12-29 05:55] VITALS: BP 130/57; PULSE 68; RESP 18; TEMP 36.8; O2SAT 96
[2017-12-29 06:51] LABS: Bedside Glucose 135 mg/dL (70-110)
--- NOTE | 2017-12-29 07:18 | PCM.PN.ORT ---
Subjective: The patient was sitting in bedside chair upon examination. Patient denies any chest pain, shortness of breath, dizziness, lightheadedness, nausea or vomiting, or calf pain. Patient reports pain in the right knee but states it is controlled on medications. Patient reports the oxycodone was helpful. She did not have the itching that she had before. No adverse overnight events. Case management has been involved and patient will be going home with home health care. Plan will be for discharge today. Objective: Vital signs stable and afebrile. Patient is able to plantarflex and dorsiflex actively. Sensation is intact to light touch to saphenous, sural, superficial and deep peroneal, and tibial distribution. Dressing is with drainage over the middle one third which is been stable. Also stable drainage from the distal dressing mid lower leg. Negative Homans bilaterally, negative signs and symptoms of DVT. - Physical Exam General: Alert, Oriented x3, Cooperative, No apparent distress Vital Signs Temp Pulse Resp BP Pulse Ox 98.2 F 68 18 130/57 H 96 12/29/17 05:55 12/29/17 05:55 12/29/17 05:55 12/29/17 05:55 12/29/17 05:55 Oxygen Delivery Method Room Air Weight: 80.739 kg Body Mass Index (BMI) 33.0 Finger Stick Blood Glucose 210 Intake and Output for Last 24 Hours 12/27/17 12/28/17 12/29/17 23:59 23:59 23:59 Intake Total 2591 / 2591 2140 / 2140 Output Total 1600 / 1600 Balance 2591 / 2591 540 / 540 Laboratory Tests Past 24 Hrs 12/29/17 07:00 WBC Pending RBC Pending Hgb Pending Hct Pending MCV Pending MCH Pending MCHC Pending RDW Pending RDW Differential Pending Plt Count Pending POC Glucose 12/29/17 12/28/17 12/28/17 06:44 21:03 16:34 POC Glucose 135 H 238 H 120 H 12/28/17 12/28/17 11:36 07:41 POC Glucose 216 H 183 H Medical Necessity - Tobacco Use Smoking Status: Never smoker Assessment/Plan All Active Problems (Last Reviewed 11/13/17 @ 12:25 by Cem Rice MD) Syncope (Acute) 1. S/P right total knee arthroplasty POD #2 2. Continue Pain Medications: Tylenol, oxycodone was added. [place] was discontinued. Patient has had previous itching with oxycodone but has tolerated it the last time she took it. 3. DVT Prophylaxis: Aspirin 81 mg twice daily for 4 weeks 4. PT/OT: Weightbearing as tolerated 5. H & H: Currently pending, patient currently asymptomatic with blood pressure 130/57 and pulse of 68. We will follow once in chart 6. Encouraged Incentive Spirometry 7. Continue postoperative medical management per medicine 8. Disposition: Plan will be for discharge home today with home health care and physical therapy. Prescriptions will be E scribed to [facility]. Patient will follow-up per postop instructions.
[2017-12-29 07:22] LABS: Hematocrit 27.1 % (37-47); Hemoglobin 8.5 g/dl (12.0-15.0); Mean Corp Hgb Conc 31.4 g/gl (32-36); Mean Corpuscular Hgb 28.3 pg (27.0-32.0); Mean Corpuscular Volume 90.3 fL (81-99); Mean Platelet Vol. 11.4 fl (6.2-12.0); Platelet Count 135 K/mm3 (150-450); RBC Distribution Width CV 17.4 % (11.6-14.6); RBC Distribution Width SD 55.9 fl (35.1-43.9); White Blood Count 6.4 K/mm3 (4.4-11.0)
--- NOTE | 2017-12-29 07:22 | PN.ORTHO_ITS ---
Subjective: The patient was sitting in bedside chair upon examination. Patient denies any chest pain, shortness of breath, dizziness, lightheadedness, nausea or vomiting , or calf pain. Patient reports pain in the right knee but states it is controlled on medications. Patient reports the oxycodone was helpful. She did not have the itching that she had before. No adverse overnight events. Case management has been involved and patient will be going home with home health care. Plan will be for discharge today. Objective: Vital signs stable and afebrile. Patient is able to plantarflex and dorsiflex actively. Sensation is intact to light touch to saphenous, sural, superficial and deep peroneal, and tibial distribution. Dressing is with drainage over the middle one third which is been stable. Also stable drainage from the distal dressing mid lower leg. Negative Homans bilaterally, negative signs and symptoms of DVT. - Physical Exam General: Alert, Oriented x3, Cooperative, No apparent distress Vital Signs Temp Pulse Resp BP Pulse Ox 98.2 F 68 18 130/57 H 96 12/29/17 05:55 12/29/17 05:55 12/29/17 05:55 12/29/17 05:55 12/29/17 05:55 Oxygen Delivery Method Room Air Weight: 80.739 kg Body Mass Index (BMI) 33.0 Finger Stick Blood Glucose 210 Intake and Output for Last 24 Hours 12/27/17 12/28/17 12/29/17 23:59 23:59 23:59 Intake Total 2591 / 2591 2140 / 2140 Output Total 1600 / 1600 Balance 2591 / 2591 540 / 540 Laboratory Tests Past 24 Hrs 12/29/17 07:00 WBC Pending RBC Pending Hgb Pending Hct Pending MCV Pending MCH Pending MCHC Pending RDW Pending RDW Differential Pending Plt Count Pending POC Glucose 12/29/17 12/28/17 12/28/17 06:44 21:03 16:34 POC Glucose 135 H 238 H 120 H 12/28/17 12/28/17 11:36 07:41 POC Glucose 216 H 183 H Medical Necessity - Tobacco Use Smoking Status: Never smoker Assessment/Plan All Active Problems (Last Reviewed 11/13/17 @ 12:25 by Cem Rice MD) Syncope (Acute) 1. S/P right total knee arthroplasty POD #2 2. Continue Pain Medications: Tylenol, oxycodone was added. [place] was discontinued. Patient has had previous itching with oxycodone but has tolerated it the last time she took it. 3. DVT Prophylaxis: Aspirin 81 mg twice daily for 4 weeks 4. PT/OT: Weightbearing as tolerated 5. H & H: Currently pending, patient currently asymptomatic with blood pressure 130/57 and pulse of 68. We will follow once in chart 6. Encouraged Incentive Spirometry 7. Continue postoperative medical management per medicine 8. Disposition: Plan will be for discharge home today with home health care and physical therapy. Prescriptions will be E scribed to [facility]. Patient will follow-up per postop instructions.
--- NOTE | 2017-12-29 07:28 | PCM.DC.TKR ---
Discharge Diet: 1800 Calorie Control Diet Discharge Activity: May Not Drive May shower in (days): 1 - Turned dressing away from water Ice area for (Minutes): 20 - every hour while awake. Weight Bearing Status: Weight bearing as tolerated Elevate: Operative Extremity Additional Activity Instructions:: Wear elastic stockings for 2 weeks after your surgery. Call your doctor if your incision/area has: Continuous Slow Oozing, Sudden Increased Bleeding, Increased Pain/ Swelling, Increased Redness, Foul Smelling Discharge Call your doctor if you observe: Fever of 101 or Higher, Coldness, Increased Pain, Numbness or Tingling, Change in Color, Calf discomfort, Uncontrolled pain Remove Dressing in (days):: 3 - Okay to remove dressing on January 01, 2018 Additional Instructions: Follow [place] orthopedic and postop instructions Do not take fish oil for 2 weeks postoperatively. Can resume after 2 weeks. Allergies/Adverse Reactions: Allergies duloxetine [From Cymbalta] Allergy (Verified 12/27/17 07:10) Unknown linagliptin [From Tradjenta] Allergy (Verified 12/27/17 07:10) Hives oxycodone [From OxyContin] Allergy (Verified 12/27/17 07:10) Rash Medications to take at Discharge Benazepril/Hydrochlorothiazide [Benazepril-Hctz 20-25 mg Tab] 1 tablet PO DAILY 02/21/17 Cholecalciferol (VIT D3) [Vitamin D3] 5,000 unit PO DAILY 02/21/17 Omeprazole [Prilosec] 1 capsule PO DAILY 02/21/17 allopurinol 100 mg tablet 1 tab PO BID tab 08/15/17 insulin detemir (U-100) 100 unit/mL (3 mL) subcutaneous pen 40 unit SC QHS ml 08/15/17 insulin lispro (U-100) 100 unit/mL subcutaneous pen See Label Instructions SC TID ml 08/15/17 potassium 99 mg tablet 99 mg PO QDAY 08/15/17 Blood Sugar Diagnostic [Assure Prism Multi] 0 applic .ROUTE .MEDSUPPLY 10/18/17 Caltrate Gummy Bites 1 tablet PO DAILY 10/30/17 Folic Acid 1 tablet PO DAILY 10/30/17 Ferrous Sulfate [Iron] 325 mg PO DAILY 12/13/17 Pregabalin [Lyrica] 100 mg PO BID 08/08/18 Acetaminophen [Tylenol] 1,000 mg PO Q8 #90 tab 12/29/17 Aspirin [Aspirin, Baby] 81 mg PO BIDCM #60 tab.chew 12/29/17 Oxycodone [Oxyir] 5 - 10 mg PO Q4H PRN PRN 6 Days #80 tablet 12/29/17 Senna/Docusate Sodium [Senokot-S] 2 tab PO BID #14 tab 12/29/17 The following prescriptions were given: Oxycodone [Oxyir] 5 - 10 mg PO Q4H PRN PRN 6 Days #80 tablet PRN Reason: Mod-Severe Pain (-02/14) Acetaminophen [Tylenol] 1,000 mg PO Q8 #90 tab Aspirin [Aspirin, Baby] 81 mg PO BIDCM #60 tab.chew Senna/Docusate Sodium [Senokot-S] 2 tab PO BID #14 tab Primary Care Physician: Марина Weir MD [Primary Care Provider] - Test Results: Test results from this visit will be discussed in further detail at your follow-up appointment, if applicable. Please Follow Up With: Home health physical therapy Please Follow Up With: Juli oC Hayes PA-C When: 01/10/18 @ 10:00 am
--- NOTE | 2017-12-29 07:42 | PCM.PN.HOSP ---
Subjective: Patient seen and examined. Feels better. Rates pain at 7/10, denies fever, chills, chest pain. Being discharged home by primary orthopedics team. Objective: Physical exam: General: Alert, Oriented x3, Cooperative, No apparent distress, not pale, not jaundiced HEENT: Atraumatic, PERRLA, EOMI, Normocephalic Oral: Moist Mucosa Neck: Supple, No JVD, Negative Carotid Bruits Lungs: Clear to auscultation, Normal air movement Cardiovascular: Regular rate, Regular Rhythm, Normal S1, Normal S2, No murmurs Abdomen: Bowel Sounds Present, Soft, Non Tender, Non-Distended, No Hepato-splenomegaly Extremities: No edema, Right knee dressing intact, cooling mat on the right knee Skin: No rashes, No breakdown Musculoskeletal: No Tenderness to Palpation of Joints or Extremities Lymphatic: No Cervical, Supraclavicular, or Inguinal Adenopathy Neurological: Cranial nerves II-XII grossly intact, Neuro grossly intact Psych/Mental Status: Normal Affect, Appropriate Vitals/I&O's: Vital Signs Temp Pulse Resp BP Pulse Ox 98.2 F 68 18 130/57 H 96 12/29/17 05:55 12/29/17 05:55 12/29/17 05:55 12/29/17 05:55 12/29/17 05:55 Oxygen Delivery Method Room Air Weight: 80.739 kg Body Mass Index (BMI) 33.0 Finger Stick Blood Glucose 210 Intake and Output for Last 24 Hours 12/27/17 12/28/17 12/29/17 23:59 23:59 23:59 Intake Total 2591 / 2591 2140 / 2140 Output Total 1600 / 1600 Balance 2591 / 2591 540 / 540 Laboratory Results 12/28/17 07:41: POC Glucose 183 H 12/28/17 11:36: POC Glucose 216 H 12/28/17 16:34: POC Glucose 120 H 12/28/17 21:03: POC Glucose 238 H 12/29/17 06:44: POC Glucose 135 H 12/29/17 07:00: WBC Pending, RBC Pending, Hgb Pending, Hct Pending, MCV Pending, MCH Pending, MCHC Pending, RDW Pending, RDW Differential Pending, Plt Count Pending Current Medications Acetaminophen (Tylenol) 1,000 mg PO Q8 [facility] Last Admin: 12/29/17 05:53 Dose: 1,000 mg [facility] Admin: 12/28/17 17:32 Dose: 100 mg Aspirin (Aspirin, Baby) [facility] Last Admin: 12/28/17 17:30 Dose: 81 mg Cholecalciferol (Vitamin D) [facility] Last Admin: 12/28/17 07:44 Dose: 5,000 unit Famotidine (Pepcid) 20 mg PO DAILY [facility] Last Admin: 12/28/17 07:45 Dose: 20 mg Ferrous Sulfate (Ferrous Sulfate) [facility] Last Admin: 12/28/17 07:46 Dose: 325 mg Folic Acid (Folic Acid) 0.5 mg PO DAILY@0800 [facility] Last Admin: 12/28/17 07:46 Dose: 0.5 mg Hydrochlorothiazide (Hctz) 25 mg PO DAILY [facility] Last Admin: 12/28/17 10:39 Dose: 25 mg Lactated Ringer's () 1,000 mls @ 125 mls/hr IV .Q8H [facility] Last Admin: 12/28/17 22:35 Dose: Not Given Insulin Glargine (Lantus (Bkc)) 40 units SC QHS [facility] Last Admin: 12/28/17 21:05 Dose: 40 u Insulin Human Lispro (Humalog Kwikpen (Bkc)) 18 unit SC BREAKFAST [facility] Last Admin: 12/28/17 07:44 Dose: 18 units Insulin Human Lispro (Humalog Kwikpen (Bkc)) 18 unit SC LUNCH [facility] Last Admin: 12/28/17 11:39 Dose: 18 units Insulin Human Lispro (Humalog Kwikpen (Bkc)) 22 unit SC SUPPER [facility] Last Admin: 12/28/17 17:31 Dose: 18 units Lisinopril (Zestril) 20 mg PO DAILY [facility] Last Admin: 12/28/17 10:40 Dose: 20 mg Morphine Sulfate () 2 - 4 mg IV Q2H PRN PRN PRN Reason: SEVERE PAIN (6-10/10) Last Admin: 12/29/17 03:58 Dose: 2 mg Morphine Sulfate () 2 - 4 mg IV Q2H PRN PRN PRN Reason: SEVERE PAIN (6-10/10) Nutritional Formula (Lactose Free) (Glucerna Shake) 120 ml PO TIDCM [facility] Last Admin: 12/28/17 17:28 Dose: Not Given Ondansetron HCl (Zofran) 4 mg IV Q8H PRN PRN PRN Reason: NAUSEA Oxycodone HCl (Oxyir) 5 - 10 mg PO Q4H PRN PRN PRN Reason: MOD-SEVERE PAIN (4-10/10) Last Admin: 12/28/17 18:32 Dose: 10 mg Pantoprazole Sodium (Protonix) 20 mg PO DAILY [facility] Last Admin: 12/28/17 10:39 Dose: 20 mg Pregabalin (Lyrica) 100 mg PO BID [facility] Last Admin: 12/28/17 21:04 Dose: 100 mg Promethazine HCl (Phenergan) 12.5 mg IM Q6H PRN PRN; Protocol PRN Reason: NAUSEA/VOMITING Senna/Docusate Sodium (Senokot-S, Mariluz-Colace) 2 tablet PO BID [facility] Last Admin: 12/28/17 21:05 Dose: Not Given Sodium Chloride () 5 - 30 ml IV UD PRN PRN Reason: SALINE FLUSH Last Admin: 12/29/17 03:58 Dose: 10 ml Medical Necessity - Tobacco Use Smoking Status: Never smoker Assessment/Plan All Active Problems (Last Reviewed 11/13/17 @ 12:25 by Cem Rice MD) Syncope (Acute) 72 y/o female with PMHx of type 2 DM, hypertension, Hyperlipidemia. gout, osteoarthritis who comes in s/p right knee replacement. 1. POD #2, s/p Right TKA, pain is controlled, active management per orthopedics 2. Hypertension, controlled, continue home medication - Lisinopril, HCTZ, will continue to monitor. 3. Type II DM, on insulin, BS are fairly controlled, continue same insulin regimen 4. Post-op anemia, hemoglobin is 8.5, has remained stable, history of iron deficiency anemia, on iron, folic acid 5. Vitamin D deficiency, on p.o. vitamin D 6. H/o gout on allupurinol 7. CKD stage III, creatinine appears to be at her baseline, will continue to monitor 8. DVT prophylaxis per orthopedic team, on aspirin twice daily Code Visit Inpatient E&M: [id number] Subs Hosp L2
[2017-12-29 07:53] VITALS: BP 138/62; PULSE 62; RESP 16; TEMP 36.6; O2SAT 98
[2017-12-29] MEDS: oxyCODONE 5 MG Tablet PO ×3 (07:55→18:12)
[2017-12-29] MEDS: Ferrous Sulfate 325 MG Tablet PO (07:56)
[2017-12-29] MEDS: Folic Acid 1 MG Tablet 0.5 MG PO (07:56)
[2017-12-29] MEDS: Aspirin 81 MG TAB.CHEW PO ×2 (07:56→17:27)
[2017-12-29] MEDS: Allopurinol 100 MG Tablet PO ×2 (07:58→17:27)
[2017-12-29] MEDS: Insulin Lispro 100 UNIT/ML INSULN.PEN 18 UNIT SC ×2 (07:58→11:31)
[2017-12-29 08:01] LABS: Scan Indicated on CBC? Y/N NO
[2017-12-29] MEDS: hydroCHLOROthiazide 25 MG Tablet PO (10:10)
[2017-12-29] MEDS: Famotidine 20 MG Tablet PO (10:10)
[2017-12-29] MEDS: Pantoprazole Sodium 20 MG Tablet PO (10:10)
[2017-12-29] MEDS: Lisinopril 20 MG Tablet PO (10:11)
[2017-12-29] MEDS: Pregabalin 50 MG Capsule 100 MG PO ×2 (10:13→21:39)
[2017-12-29] MEDS: Glucerna Shake 120 ML LIQUID PO ×2 (11:30→17:31)
[2017-12-29 11:40] LABS: Bedside Glucose 93 mg/dL (70-110)
[2017-12-29 14:55] VITALS: BP 148/68; PULSE 75; RESP 18; TEMP 36.6; O2SAT 99
[2017-12-29] MEDS: morphine SR 15 MG Tablet PO ×2 (16:01→21:38)
[2017-12-29 17:13] VITALS: BP 167/52; PULSE 72; RESP 18; TEMP 37.1; O2SAT 98
[2017-12-29] MEDS: Insulin Lispro 100 UNIT/ML INSULN.PEN 22 UNIT SC (17:27)
[2017-12-29 17:41] LABS: Bedside Glucose 194 mg/dL (70-110)
[2017-12-29 21:35] VITALS: BP 156/48; PULSE 74; RESP 16; TEMP 37.4; O2SAT 97
[2017-12-29 21:56] LABS: Bedside Glucose 99 mg/dL (70-110)
[2017-12-30 03:02] VITALS: BP 140/52; PULSE 74; RESP 18; TEMP 36.8; O2SAT 95
[2017-12-30] MEDS: oxyCODONE 5 MG Tablet PO ×3 (03:03→15:28)
[2017-12-30] MEDS: Acetaminophen 500 MG Tablet 1000 MG PO ×2 (06:41→15:27)
[2017-12-30 07:22] LABS: Hematocrit 26.6 % (37-47); Mean Corp Hgb Conc 30.1 g/gl (32-36); Mean Corpuscular Hgb 27.5 pg (27.0-32.0); Mean Corpuscular Volume 91.4 fL (81-99); Mean Platelet Vol. 12.2 fl (6.2-12.0); Platelet Count 140 K/mm3 (150-450); RBC Distribution Width CV 17.5 % (11.6-14.6); RBC Distribution Width SD 56.2 fl (35.1-43.9); Red Blood Count 2.91 M/mm3 (4.2-5.4)
[2017-12-30 07:26] LABS: Scan Indicated on CBC? Y/N NO
--- NOTE | 2017-12-30 08:24 | PCM.PN.ORT ---
Subjective: patient feeling bettr today. unable to be discharged secondary to pain yesterday. ms contin started. pain controlled improved today. ready for dc this AM. no new issues. no cp, sob, calf pain. - Physical Exam General: Alert, Oriented x3, Cooperative Extremities: - - lle: dressing c/d/i, distally dresing saturated, changed this am silt saph/doc/sp/dp/tib motor + df/ehl/pf calves s/s palpable pulse Vital Signs Temp Pulse Resp BP Pulse Ox 98.2 F 74 18 140/52 H 95 12/30/17 03:02 12/30/17 03:02 12/30/17 03:02 12/30/17 03:02 12/30/17 03:02 Oxygen Delivery Method Room Air Weight: 177 lb 15.984 oz Body Mass Index (BMI) 33.0 Finger Stick Blood Glucose 210 Intake and Output for Last 24 Hours 12/28/17 12/29/17 12/30/17 23:59 23:59 23:59 Intake Total 2140 / 2140 1450 / 1450 Output Total 1600 / 1600 1050 / 1050 Balance 540 / 540 400 / 400 Laboratory Tests Past 24 Hrs 12/30/17 06:25 WBC 7.0 RBC 2.91 L Hgb 8.0 L Hct 26.6 L MCV 91.4 MCH 27.5 MCHC 30.1 L RDW 17.5 H RDW Differential 56.2 H Plt Count 140 L MPV 12.2 H POC Glucose 12/29/17 12/29/17 12/29/17 21:31 17:10 11:29 POC Glucose 99 194 H 93 Medical Necessity - Tobacco Use Smoking Status: Never smoker Assessment/Plan All Active Problems (Last Reviewed 11/13/17 @ 12:25 by Cem Rice MD) Syncope (Acute)
--- NOTE | 2017-12-30 08:30 | PCM.PN.HOSP ---
Subjective: Patient was seen and examined. Not discharged yesterday because of pain control issues. Pain is 0/10 now. Denies fever, chills, SOB. Objective: Physical exam: General: Alert, Oriented x3, Cooperative, No apparent distress, not pale, not jaundiced HEENT: Atraumatic, PERRLA, EOMI, Normocephalic Oral: Moist Mucosa Neck: Supple, No JVD, Negative Carotid Bruits Lungs: Clear to auscultation, Normal air movement Cardiovascular: Regular rate, Regular Rhythm, Normal S1, Normal S2, No murmurs Abdomen: Bowel Sounds Present, Soft, Non Tender, Non-Distended, No Hepato-splenomegaly Extremities: No edema, Right knee dressing intact, cooling mat on the right knee Skin: No rashes, No breakdown Musculoskeletal: No Tenderness to Palpation of Joints or Extremities Lymphatic: No Cervical, Supraclavicular, or Inguinal Adenopathy Neurological: Cranial nerves II-XII grossly intact, Neuro grossly intact Psych/Mental Status: Normal Affect, Appropriate Vitals/I&O's: Vital Signs Temp Pulse Resp BP Pulse Ox 98.2 F 74 18 140/52 H 95 12/30/17 03:02 12/30/17 03:02 12/30/17 03:02 12/30/17 03:02 12/30/17 03:02 Oxygen Delivery Method Room Air Weight: 80.739 kg Body Mass Index (BMI) 33.0 Finger Stick Blood Glucose 210 Intake and Output for Last 24 Hours 12/28/17 12/29/17 12/30/17 23:59 23:59 23:59 Intake Total 2140 / 2140 1450 / 1450 Output Total 1600 / 1600 1050 / 1050 Balance 540 / 540 400 / 400 Laboratory Results 12/29/17 11:29: POC Glucose 93 12/29/17 17:10: POC Glucose 194 H 12/29/17 21:31: POC Glucose 99 12/30/17 06:25: WBC 7.0, RBC 2.91 L, Hgb 8.0 L, Hct 26.6 L, MCV 91.4, MCH 27.5, MCHC 30.1 L, RDW 17.5 H, RDW Differential 56.2 H, Plt Count 140 L, MPV 12.2 H Current Medications Acetaminophen (Tylenol) 1,000 mg PO Q8 [facility] Last Admin: 12/30/17 06:41 Dose: 1,000 mg [facility]) [facility]: 12/29/17 17:27 Dose: 100 mg Aspirin (Aspirin, Baby) [facility] Last Admin: 12/29/17 17:27 Dose: 81 mg Cholecalciferol (Vitamin D) 5,000 unit [facility] Last Admin: 12/29/17 07:57 Dose: 5,000 unit Famotidine (Pepcid) 20 mg PO DAILY [facility] Last Admin: 12/29/17 10:10 Dose: 20 mg Ferrous Sulfate (Ferrous Sulfate) 325 [facility] Last Admin: 12/29/17 07:56 Dose: 325 mg Folic Acid (Folic Acid) 0.5 mg PO DAILY@0800 [facility] Last Admin: 12/29/17 07:56 Dose: 0.5 mg Hydrochlorothiazide (Hctz) 25 mg PO DAILY [facility] Last Admin: 12/29/17 10:10 Dose: 25 mg Insulin Glargine (Lantus (Bkc)) 40 units SC QHS [facility] Last Admin: 12/29/17 21:40 Dose: 40 u Insulin Human Lispro (Humalog Kwikpen (Bkc)) 18 unit SC BREAKFAST [facility] Last Admin: 12/29/17 07:58 Dose: 18 units Insulin Human Lispro (Humalog Kwikpen (Bkc)) 18 unit SC LUNCH [facility] Last Admin: 12/29/17 11:31 Dose: 18 units Insulin Human Lispro (Humalog Kwikpen (Bkc)) 22 unit SC SUPPER [facility] Last Admin: 12/29/17 17:27 Dose: 22 units Lisinopril (Zestril) 20 mg PO DAILY [facility] Last Admin: 12/29/17 10:11 Dose: 20 mg Morphine Sulfate () 2 - 4 mg IV Q2H PRN PRN PRN Reason: SEVERE PAIN (6-10/10) Last Admin: 12/29/17 03:58 Dose: 2 mg Morphine Sulfate () 2 - 4 mg IV Q2H PRN PRN PRN Reason: SEVERE PAIN (6-10/10) Morphine Sulfate (Ms Contin) 15 mg PO BID [facility] Last Admin: 12/29/17 21:38 Dose: 15 mg Nutritional Formula (Lactose Free) (Glucerna Shake) 120 ml PO TIDCM [facility] Last Admin: 12/29/17 17:31 Dose: 120 ml Ondansetron HCl (Zofran) 4 mg IV Q8H PRN PRN PRN Reason: NAUSEA Oxycodone HCl (Oxyir) 5 - 10 mg PO Q4H PRN PRN PRN Reason: MOD-SEVERE PAIN (4-10/10) Last Admin: 12/30/17 03:03 Dose: 10 mg Pantoprazole Sodium (Protonix) 20 mg PO DAILY [facility] Last Admin: 12/29/17 10:10 Dose: 20 mg Pregabalin (Lyrica) 100 mg PO BID [facility] Last Admin: 12/29/17 21:39 Dose: 100 mg Promethazine HCl (Phenergan) 12.5 mg IM Q6H PRN PRN; Protocol PRN Reason: NAUSEA/VOMITING Senna/Docusate Sodium (Senokot-S, Mariluz-Colace) 2 tablet PO BID [facility] Last Admin: 12/29/17 21:39 Dose: Not Given Sodium Chloride () 5 - 30 ml IV UD PRN PRN Reason: SALINE FLUSH Last Admin: 12/29/17 03:58 Dose: 10 ml Medical Necessity - Tobacco Use Smoking Status: Never smoker Assessment/Plan All Active Problems (Last Reviewed 11/13/17 @ 12:25 by Cem Rice MD) Syncope (Acute) 72 y/o female with PMHx of type 2 DM, hypertension, Hyperlipidemia. gout, osteoarthritis who comes in s/p right knee replacement. 1. POD #3, s/p Right TKA, pain is controlled, active management per orthopedics 2. Hypertension, controlled, continue home medication - Lisinopril, HCTZ, will continue to monitor. 3. Type II DM, on insulin, BS are fairly controlled, continue same insulin regimen 4. Post-op anemia, hemoglobin is 8.0, has remained stable, history of iron deficiency anemia, on iron, folic acid 5. Vitamin D deficiency, on p.o. vitamin D 6. H/o gout on allupurinol 7. CKD stage III, creatinine appears to be at her baseline, will continue to monitor 8. DVT prophylaxis per orthopedic team, on aspirin twice daily Code Visit Inpatient E&M: [id number] Subs Hosp L2
[2017-12-30 08:45] VITALS: BP 142/48; PULSE 66; RESP 18; TEMP 37; O2SAT 99
[2017-12-30] MEDS: Pantoprazole Sodium 20 MG Tablet PO (08:45)
[2017-12-30] MEDS: Lisinopril 20 MG Tablet PO (08:45)
[2017-12-30] MEDS: Senna/Docusate Sodium 1 Tablet 2 TABLET PO (08:45)
[2017-12-30] MEDS: Folic Acid 1 MG Tablet 0.5 MG PO (08:45)
[2017-12-30] MEDS: hydroCHLOROthiazide 25 MG Tablet PO (08:45)
[2017-12-30] MEDS: Ferrous Sulfate 325 MG Tablet PO (08:45)
[2017-12-30] MEDS: Allopurinol 100 MG Tablet PO (08:46)
[2017-12-30] MEDS: Aspirin 81 MG TAB.CHEW PO (08:46)
[2017-12-30] MEDS: Famotidine 20 MG Tablet PO (08:46)
[2017-12-30] MEDS: Glucerna Shake 120 ML LIQUID PO ×2 (08:49→13:23)
[2017-12-30] MEDS: Pregabalin 50 MG Capsule 100 MG PO (08:49)
[2017-12-30] MEDS: Insulin Lispro 100 UNIT/ML INSULN.PEN 18 UNIT SC ×2 (09:38→13:28)
[2017-12-30] MEDS: morphine SR 15 MG Tablet PO (09:41)
[2017-12-30 09:45] LABS: Bedside Glucose 251 mg/dL (70-110)
[2017-12-30 13:36] LABS: Bedside Glucose 208 mg/dL (70-110)
--- NOTE | 2017-12-30 13:36 | NURSING ---
per patient, she will not need RX for walker at discharge. will use walker of a family members.
[2017-12-30 15:20] VITALS: BP 135/49; PULSE 82; RESP 18; TEMP 37.3; O2SAT 99
--- NOTE | 2017-12-30 19:29 | NURSING ---
PATIENTS DAUGHTER CALLED THIS RN REGARDING PAIN PRESCRIPTION FOR MS CONTIN. P[facility] PHARMACY CLOSED AND WAS WANTING TO GET MEDICATION FILLED HERE. EXPLAINED TO PATIENTS DAUGHTER THAT HOSPITAL PHARMACY IS CLOSED OVER THE WEEKEND, BUT GAVE PHARMACY NUMBERS PROVIDED FOR [facility], AND [facility]. DAUGHTER STATES PATIENT IS IN A LOT OF PAIN AT THIS TIME AND CAN'T TAKE ANYTHING UNTIL 2200--TYLENOL. EXPLAINED TO PATIENTS DAUGHTER THAT SHE COULD HAVE TAKEN OXY IR (WHICH WAS SENT HOME WITH PATIENT AT DISCHARGE) AT 1900. PATIENTS DAUGHTER AGREEABLE TO CALL PHARMACY NUMBERS PROVIDED REGARDING MS CONTIN RX AND WILL GIVEN MOTHER OXY IR AT THIS TIME.
--- NOTE | 2018-01-02 20:50 | PCM.DC.SUM ---
Discharge Date and Diagnosis Date of Admission: 12/27/17 Date of Discharge: 12/30/17 - Primary Discharge Diagnosis Status post right total knee arthroplasty - Secondary Discharge Diagnosis Chronic Problems (Last Reviewed 11/13/17 @ 12:25 by Cem Rice MD) Hyperlipemia (Chronic) GERD (gastroesophageal reflux disease) (Chronic) Gout (Chronic) HTN (hypertension) (Chronic) Osteoarthritis of right knee (Chronic) Diabetes mellitus (Chronic) Thyroid nodule (Chronic) Chronic kidney disease (Chronic) Osteoporosis (Chronic) Patient discontinued her biphosphanate Does not explain why. Wishes to discuss diabetes and thyroid today. Controlled type 2 diabetes mellitus with insulin therapy (Chronic) Reports long standing control until recent illness. Today she reports she used to use her sliding scale. We discussed using this anytime she become ill to avoid her having high BG. Today her Bg have extrem varied numbers. She does mention she goes to exercise 3 times a week which probably causes her low BG days. She also has two different breakfast regimens. One would need more insulin than the other as it contins fruit and the other is mostly protin. We discussed these issues and she is enc to make insulin adjustment for exercise and diet changes. Thyroid goiter (Chronic) Patient has known thyroid goiter . Has multiple nodules and I will refer to surgeon Hospital Course and Treatment Operations: None Summary of Care Provided: Patient is a 72-year-old female who has had ongoing right knee pain secondary to osteoarthritis. After failing conservative measures, the patient opted to proceed with a right total knee arthroplasty. The patient underwent the above-stated procedure on December 27, 2017. Patient did receive perioperative antibiotics. Intraoperatively was uneventful. For details please see dictated operative note. The patient was placed in thigh-high teds, bilateral SCDs, remained stable in recovery. Patient was admitted to the 3rd floor at [facility]. The patient's pain was managed with the use of IV and p.o. pain medications. Patient had to have pain meds adjusted due to uncontrolled pain. After starting MS Contin patient's pain was better controlled. Patient participated in physical therapy. Patient was discharged on postoperative day #3 to home. Patient was given medications stated below. Patient will follow up with [facility] per postop instructions for reassessment. Discharge Diet: 1800 Calorie Control Diet Discharge Activity: May Not Drive May shower in (days): 1 - Turned dressing away from water Ice area for (Minutes): 20 - every hour while awake. Weight Bearing Status: Weight bearing as tolerated Keep extremity elevated above heart level: Operative Extremity Additional Activity Instructions:: Wear elastic stockings for 2 weeks after your surgery. Call your doctor if your incision/area has: Continuous Slow Oozing, Sudden Increased Bleeding, Increased Pain/ Swelling, Increased Redness, Foul Smelling Discharge Call your doctor if you observe: Fever of 101 or Higher, Coldness, Increased Pain, Numbness or Tingling, Change in Color, Calf discomfort, Uncontrolled pain Remove Dressing in (days):: 3 - Okay to remove dressing on January 01, 2018 Home Medications: Medications to take at Discharge Benazepril/Hydrochlorothiazide [Benazepril-Hctz 20-25 mg Tab] 1 tablet PO DAILY 02/21/17 Cholecalciferol (VIT D3) [Vitamin D3] 5,000 unit PO DAILY 02/21/17 Omeprazole [Prilosec] 1 capsule PO DAILY 02/21/17 allopurinol 100 mg tablet 1 tab PO BID tab 08/15/17 insulin detemir (U-100) 100 unit/mL (3 mL) subcutaneous pen 40 unit SC QHS ml 08/15/17 insulin lispro (U-100) 100 unit/mL subcutaneous pen See Label Instructions SC TID ml 08/15/17 potassium 99 mg tablet 99 mg PO QDAY 08/15/17 Blood Sugar Diagnostic [Assure Prism Multi] 0 applic .ROUTE .MEDSUPPLY 10/18/17 Caltrate Gummy Bites 1 tablet PO DAILY 10/30/17 Folic Acid 1 tablet PO DAILY 10/30/17 Ferrous Sulfate [Iron] 325 mg PO DAILY 12/13/17 Pregabalin [Lyrica] 100 mg PO BID 12/13/17 Oxycodone [Oxyir] 5 - 10 mg PO Q4H PRN PRN 6 Days #80 tablet 12/29/17 Acetaminophen [Tylenol] 1,000 mg PO Q8 01/02/18 Aspirin [Aspirin, Baby] 81 mg PO BIDCM 01/02/18 Senna/Docusate Sodium [Senokot-S] 2 tablet PO BID 01/02/18 morphine SR tablet [Ms Contin] 15 mg PO BID 01/02/18 Following Prescrptions Were Given to Patient: Oxycodone [Oxyir] 5 - 10 mg PO Q4H PRN PRN 6 Days #80 tablet PRN Reason: Mod-Severe Pain (-02/14) Primary Care Physician: Марина Weir MD [Primary Care Provider] - Please Follow Up With: Home health physical therapy Please Follow Up With: Julio C Hayes PA-C When: 01/10/18 @ 10:00 am Additional Instructions: Follow [facility] and postop instructions Do not take fish oil for 2 weeks postoperatively. Can resume after 2 weeks. Medical Necessity - Tobacco Use Smoking Status: Never smoker Meaningful Use Info Meaningful Use Diagnoses (Choose all that apply): None applicable
== END 2017-12-30 16:50 | disposition home health service (06) | DRG 470 ==
LOC: MS3 06:45
PROVIDERS: Admitting Provider Specialist; Family Provider Family Medicine; PCP Family Medicine; Visit Provider Specialist
PROC: 0SRC0J9 Replacement of Right Knee Joint with Synthetic Substitute, Cemented, Open Approach (ICD-10-PCS; CPT 27447; principal; 2017-12-27 08:30)
DX: M17.11 Unilateral primary osteoarthritis, right knee (principal); E55.9 Vitamin D deficiency, unspecified; M10.9 Gout, unspecified; N18.3 Chronic kidney disease, stage 3 (moderate); E11.22 Type 2 diabetes mellitus with diabetic chronic kidney disease; I12.9 Hypertensive chronic kidney disease with stage 1 through stage 4 chronic kidney disease, or unspecified chronic kidney disease; Z79.4 Long term (current) use of insulin
CPT/HCPCS: 36415; 73560; 80048; 82962; 83036; 84443; 85025; 85027; 87081; 97110; 97116; 97162; 97166; 97530; C1713; C1776; J7120; A4216

== ENCOUNTER 2018-01-02 15:53 | Inpatient (IN) | payer MEDICARE, MEDICAID, SELFPAY ==
[2018-01-02 16:21] VITALS: BP 154/79; PULSE 90; RESP 20; TEMP 36.5; O2SAT 95
[2018-01-02 16:27] VITALS: BMI 33.2
[2018-01-02 16:37] VITALS: BMI 33.2
[2018-01-02 16:50] LABS: Bedside Glucose 234 mg/dL (70-110)
[2018-01-02] MEDS: Pregabalin 50 MG Capsule 100 MG PO (17:52)
[2018-01-02] MEDS: Aspirin 81 MG TAB.CHEW PO (17:53)
[2018-01-02] MEDS: Senna/Docusate Sodium 1 Tablet 2 TABLET PO (17:53)
[2018-01-02] MEDS: Allopurinol 100 MG Tablet PO (17:53)
[2018-01-02] MEDS: Insulin Lispro 100 UNIT/ML INSULN.PEN 22 UNIT SC (17:59)
[2018-01-02] MEDS: oxyCODONE 5 MG Tablet PO ×2 (18:18→23:52)
--- NOTE | 2018-01-02 20:01 | PCM.HP.STD ---
Problem List (1) Osteoarthritis of right knee Status: Chronic (2) Diabetes mellitus Status: Chronic (3) Thyroid nodule Status: Chronic (4) Chronic kidney disease Status: Chronic (5) Hyperlipemia Status: Chronic (6) Gout Status: Chronic (7) HTN (hypertension) Status: Chronic History of Present Illness Date of Admission: 01/02/18 Chief Complaint: Here for rehabilitation, strengthening, prior to discharge home alone. The patient is a 72 year old Female with below past medical history underwent right total knee replacement 12/27/[address] Sukh Gannon. Patient was discharged home afterwards. Patient lives alone and thought she could count on her 5 children to help care for her, but unfortunately, this did not work out. 01/02/2018 Admit to TCU with debility, here for rehabilitation, strengthening, prior to discharge home alone. Past Medical History Past Medical History (Chronic Problems): Chronic Problems (Last Reviewed 11/13/17 @ 12:25 by Cem Rice MD) Hyperlipemia (Chronic) GERD (gastroesophageal reflux disease) (Chronic) Gout (Chronic) HTN (hypertension) (Chronic) Osteoarthritis of right knee (Chronic) Diabetes mellitus (Chronic) Thyroid nodule (Chronic) Chronic kidney disease (Chronic) Osteoporosis (Chronic) Patient discontinued her biphosphanate Does not explain why. Wishes to discuss diabetes and thyroid today. Controlled type 2 diabetes mellitus with insulin therapy (Chronic) Reports long standing control until recent illness. Today she reports she used to use her sliding scale. We discussed using this anytime she become ill to avoid her having high BG. Today her Bg have extrem varied numbers. She does mention she goes to exercise 3 times a week which probably causes her low BG days. She also has two different breakfast regimens. One would need more insulin than the other as it contins fruit and the other is mostly protin. We discussed these issues and she is enc to make insulin adjustment for exercise and diet changes. Thyroid goiter (Chronic) Patient has known thyroid goiter . Has multiple nodules and I will refer to surgeon Medical History: Medical History (Last Reviewed 11/13/17 @ 12:25 by Cem Rice MD) Arthritis M19.90 Back problem M53.9 Carpal tunnel syndrome G56.00 Cataracts, bilateral H26.9 Chronic renal insufficiency N18.9 Diabetes E11.9 Dx : 2009 Last exacerbation : DKA : x1 Hypoglycemic episode : never ER visit : x1 Goiter E04.9 Gout M10.9 IBS (irritable bowel syndrome) K58.9 Neuropathy G62.9 Seasonal allergies J30.2 cataract surgery HTN (hypertension) I10 Allergies duloxetine [From Cymbalta] Allergy (Verified 12/27/17 07:10) Unknown linagliptin [From Tradjenta] Allergy (Verified 12/27/17 07:10) Hives oxycodone [From OxyContin] Allergy (Verified 12/27/17 07:10) Rash Home Medications: Ambulatory Orders Medication Instructions Recorded Benazepril/Hydrochlorothiazide 1 tablet PO DAILY 02/21/17 [Benazepril-Hctz 20-25 mg Tab] Cholecalciferol (VIT D3) [Vitamin 5,000 unit PO DAILY 02/21/17 D3] Omeprazole [Prilosec] 1 capsule PO DAILY 02/21/17 allopurinol 100 mg tablet 1 tab PO BID tab 08/15/17 insulin detemir (U-100) 100 40 unit SC QHS ml 08/15/17 unit/mL (3 mL) subcutaneous pen insulin lispro (U-100) 100 unit/mL See Label Instructions SC TID ml 08/15/17 subcutaneous pen potassium 99 mg tablet 99 mg PO QDAY 08/15/17 Blood Sugar Diagnostic [Assure 0 applic .ROUTE .MEDSUPPLY 10/18/17 Prism Multi] Caltrate Gummy Bites 1 tablet PO DAILY 10/30/17 Folic Acid 1 tablet PO DAILY 10/30/17 Ferrous Sulfate [Iron] 325 mg PO DAILY 12/13/17 Pregabalin [Lyrica] 100 mg PO BID 12/13/17 Oxycodone [Oxyir] 5 - 10 mg PO Q4H PRN PRN 6 Days 12/29/17 #80 tablet Acetaminophen [Tylenol] 1,000 mg PO Q8 01/02/18 Aspirin [Aspirin, Baby] 81 mg PO BIDCM 01/02/18 Senna/Docusate Sodium [Senokot-S] 2 tablet PO BID 01/02/18 morphine SR tablet [Ms Contin] 15 mg PO BID 01/02/18 Surgical History: Surgical History (Last Reviewed 11/13/17 @ 12:25 by Cem Rice MD) H/O tubal ligation Z98.51 History of back surgery Z98.890 Hx of appendectomy Z90.49 Hx of cholecystectomy Z90.49 S/P carpal tunnel release Z98.890 S/P knee replacement Z96.659 Surgical History: appendectomy, cataract - Bilateral., cholecystectomy, total knee arthroplasty - Bilateral., - - Tubal ligation, Lumbar surgery ?2 Psychiatric History: No 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 hx [employer] History: No pertinent [employer] history Lives: Alone Smoking Status: Never smoker Tobacco Use: Non-smoker Alcohol: None Drugs: None - *Family History Maternal Family History: Family History (Last Reviewed 11/13/17 @ 12:25 by Cem Rice MD) Unknown Alcoholism Arthritis Asthma Depression Hypertension High cholesterol Kidney disease Severe allergy Diabetes History Items: Diabetes Paternal Family History: Family History (Last Reviewed 11/13/17 @ 12:25 by Cem Rice MD) Unknown Alcoholism Arthritis Asthma Depression Hypertension High cholesterol Kidney disease Severe allergy Diabetes History Items: Diabetes Review of Systems Constitutional: Denies: Chills, Fever, Weight Change HEENT: Denies: Head Aches, Sinus Congestion, Sinus Drainage Cardiovascular: Denies: Chest Pain, Palpitations Respiratory: Denies: Cough, Shortness of breath at rest, Sputum production Gastrointestinal: Reports: Constipation. Denies: Abdominal Pain, Nausea, Vomiting Genitourinary: Denies: Dysuria Musculoskeletal: Reports: Joint Pain - Right knee pain.. Denies: Joint Tenderness Skin: Denies: Rash, Wounds Neurological: Denies: Numbness, Tingling, Focal weakness Psychiatric: Denies: Anxiety, Depression, Homicidal Ideations, Suicidal Ideations Hematologic/ Lymphatic: Denies: Easy Bruising, Easy Bleeding VTE Information - Inpt Only VTE Present on Admission: No VTE Mechan Device Prophylaxis: Knee High BIANCA Hose VTE Pharm Prophylaxis ordered?: Yes - Physical Exam General: Alert, Oriented x3, Cooperative HEENT: Atraumatic, PERRLA, EOMI, Normocephalic Neck: Supple, No JVD, Negative Carotid Bruits Lungs: Clear to auscultation, Normal air movement Cardiovascular: Regular rate, No murmurs Abdomen: Bowel Sounds Present, Soft, Non Tender Extremities: No edema, Capillary Refill Less than 3 Seconds Skin: No rashes, No breakdown, Incision - Right knee incision saroj, clean, dry, intact. Musculoskeletal: No Tenderness to Palpation of Joints or Extremities Neurological: Cranial nerves II-XII grossly intact Psych/Mental Status: Normal Affect, Appropriate Vital Signs Temp Pulse Resp BP Pulse Ox 97.7 F L 90 20 H 154/79 H 95 01/02/18 16:21 01/02/18 16:21 01/02/18 16:21 01/02/18 16:21 01/02/18 16:21 Oxygen Delivery Method Room Air Weight: 79.742 kg Body Mass Index (BMI) 33.2 Finger Stick Blood Glucose 210 Intake and Output for Last 24 Hours 12/31/17 01/01/18 01/02/18 23:59 23:59 23:59 Intake Total 100 / 100 Balance 100 / 100 POC Glucose 01/02/18 16:47 POC Glucose 234 H Assessment/Plan All Active Problems (Last Reviewed 11/13/17 @ 12:25 by Cem Rice MD) Syncope (Acute) 72 year old female with below past medical history hospitalized for right total knee replacement 12/27/[address] Gannon, failed home discharge, admitted to TCU with debility, here for rehabilitation, strengthening, prior to discharge home alone. Debility - PT/OT. Pain - Tylenol 1000MG Q8H, Oxycodone 5-10MG Q4H PRN severe pain. Bowel - Miralax 17GM daily, Senna/colace 2 tablets BID, Dulcolax 10MG PO daily PRN, Soap Suds enema x 1, no BM for 1 week. Pneumonia vaccination - Administer Prevnar 13 and/or Pneumovax 23 as necessary. DVT prophylaxis - Aspirin 81MG twice daily per Orthopedic service. Gout - Allopurinol 100MG BID. Vitamin D deficiency - D3 5000IU daily. Iron deficiency anemia - Iron 325MG daily. Folate deficiency - Folic acid 1MG daily. Nutrition - Glucerna 120ML 4x/day. Hypertension - HCTZ 25MG daily. Diabetes Mellitus II - Lantus 40 units QHS, Humalog 18, 18, 22. GERD - Pantoprazole 20MG daily. Diabetic polyneuropathy - Lyrica 100MG twice daily. Hyperlipidemia - Consider high intensity statin like Atorvastatin 40MG QHS.
[2018-01-02 21:26] LABS: Bedside Glucose 232 mg/dL (70-110)
[2018-01-02] MEDS: Acetaminophen 500 MG Tablet 1000 MG PO (21:30)
[2018-01-03 05:25] LABS: Absolute Lymphocyte Count 1.36 X10^3/ul (0.83-4.51); Absolute Neutrophil Count 2.6 X10^3/uL (2.0-7.7); Basophil# 0.02 X10^3/uL; Basophil% 0.4 % (0-1); Eosinophil# 0.44 X10^3/uL; Eosinophils% 9.3 % (0-5); Hematocrit 24.9 % (37-47); Hemoglobin 7.6 g/dl (12.0-15.0); Lymphocyte # 1.36 X10^3/ul (4.0); Lymphocyte % 28.6 % (19-41); Mean Corp Hgb Conc 30.5 g/gl (32-36); Mean Corpuscular Hgb 27.5 pg (27.0-32.0); Mean Corpuscular Volume 90.2 fL (81-99); Monocyte# 0.33 X10^3/uL; Monocyte% 6.9 % (0-10); Neutrophil % 54.8 % (47-70); Platelet Count 190 K/mm3 (150-450); RBC Distribution Width CV 17.3 % (11.6-14.6); RBC Distribution Width SD 56.9 fl (35.1-43.9); Red Blood Count 2.76 M/mm3 (4.2-5.4); White Blood Count 4.8 K/mm3 (4.4-11.0)
[2018-01-03 05:29] LABS: POSITIVE COUNT NO; POSITIVE DIFFERENTIAL NO; POSITIVE MORPHOLOGY NO
[2018-01-03 05:52] LABS: Anion Gap 9 (5-15); BUN 27 mg/dL (7-18); BUN/Creat Ratio 21.3 RATIO (10-20); Calcium,Total 8.6 mg/dL (8.5-10.1); Chloride 102 mmol/L (98-107); Creatinine, Serum 1.27 mg/dL (0.55-1.02); EST Glomerular Filtration Rate 44 mL/min (>60); Est Glom Filt Rate - Afr Amer 53 mL/min (>60); Estimated Creatinine Clearance 30.66 ml/min; Glucose 235 mg/dL (74-106); Potassium 4.4 mmol/L (3.5-5.1); Sodium Level 139 mmol/L (136-145)
[2018-01-03] MEDS: oxyCODONE 5 MG Tablet PO ×3 (06:57→20:37)
[2018-01-03 07:06] LABS: Bedside Glucose 221 mg/dL (70-110)
[2018-01-03] MEDS: Allopurinol 100 MG Tablet PO ×2 (09:04→17:37)
[2018-01-03] MEDS: Acetaminophen 500 MG Tablet 1000 MG PO ×3 (09:04→21:51)
[2018-01-03] MEDS: Pregabalin 50 MG Capsule 100 MG PO ×2 (09:04→17:37)
[2018-01-03] MEDS: Folic Acid 1 MG Tablet PO (09:05)
[2018-01-03] MEDS: hydroCHLOROthiazide 25 MG Tablet PO (09:05)
[2018-01-03] MEDS: Senna/Docusate Sodium 1 Tablet 2 TABLET PO ×2 (09:05→17:36)
[2018-01-03] MEDS: Aspirin 81 MG TAB.CHEW PO ×2 (09:06→17:37)
[2018-01-03] MEDS: Ferrous Sulfate 325 MG Tablet PO (09:06)
[2018-01-03] MEDS: Insulin Lispro 100 UNIT/ML INSULN.PEN 18 UNIT SC ×3 (09:12→17:38)
[2018-01-03] MEDS: Polyethylene Glycol 3350 17 GM PACKET PO (09:24)
[2018-01-03] MEDS: Lisinopril 20 MG Tablet PO (09:25)
[2018-01-03] MEDS: Pantoprazole Sodium 20 MG Tablet PO (09:25)
[2018-01-03 11:26] LABS: Bedside Glucose 150 mg/dL (70-110)
[2018-01-03] MEDS: Glucerna Shake 120 ML LIQUID PO ×2 (11:32→17:36)
[2018-01-03] MEDS: Tuberculin,Purif.prot.deriv. 50 TU/ML Vial 5 ML ID (11:33)
--- NOTE | 2018-01-03 12:03 | NURSING ---
[facility] office notified to clarify DC staple date. Pt will have saroj removed at f/u appt on 01/10/18 at 10am
--- NOTE | 2018-01-03 12:17 | PCM.PN.RX ---
<RellreinaldoeliasHarvey D - Last Filed: 01/03/18 12:17> Progress Note - Pharmacy Subjective: TCU Admission Objective: Allergies duloxetine [From Cymbalta] Allergy (Verified 12/27/17 07:10) Unknown linagliptin [From Tradjenta] Allergy (Verified 12/27/17 07:10) Hives oxycodone [From OxyContin] Allergy (Verified 12/27/17 07:10) Rash Current Medications Generic Name Dose Route Start Last Admin Trade Name Freq PRN Reason Stop Dose Admin Acetaminophen 1,000 mg 01/03/18 08:00 01/03/18 09:04 Tylenol PO 1,000 mg 0800,1400,2200 [facility] Administration Allopurinol 100 mg 01/03/18 08:00 01/03/18 09:04 Zyloprim PO 100 mg BID@0800,1800 [facility] Administration Aspirin 81 mg 01/02/18 17:00 01/03/18 09:06 Aspirin, Baby PO 81 mg BIDCM [facility] Administration Bisacodyl 10 mg 01/02/18 20:13 Dulcolax PO DAILY PRN Constipation Cholecalciferol 5,000 unit 01/03/18 08:00 01/03/18 09:05 Vitamin D PO 5,000 unit DAILY@0800 [facility] Administration Ferrous Sulfate 325 mg 01/03/18 08:00 01/03/18 09:06 Ferrous Sulfate PO 325 mg DAILYCM [facility] Administration Folic Acid 1 mg 01/03/18 08:00 01/03/18 09:05 Folic Acid PO 1 mg DAILY@0800 [facility] Administration Hydrochlorothiazide 25 mg 01/03/18 08:00 01/03/18 09:05 Hctz PO 25 mg DAILY@0800 [facility] Administration Insulin Glargine 40 units 01/02/18 22:00 01/02/18 21:30 Lantus (Bkc) SC 40 units QHS [facility] Administration Insulin Human Lispro 18 unit 01/03/18 08:00 01/03/18 11:33 Humalog Kwikpen (Bkc) SC 18 units BREAKFAST [facility] Administration Insulin Human Lispro 18 unit 01/03/18 12:00 01/03/18 11:38 Humalog Kwikpen (Bkc) SC 18 units LUNCH [facility] Administration Insulin Human Lispro 22 unit 01/02/18 17:00 01/02/18 17:59 Humalog Kwikpen (Bkc) SC 22 u SUPPER [facility] Administration Lisinopril 20 mg 01/03/18 08:00 01/03/18 09:25 Zestril PO 20 mg DAILY@0800 [facility] Administration Nutritional Formula (Lactose Free) 120 ml 01/02/18 17:00 01/03/18 11:32 Glucerna Shake PO 18 units 4X/DAY [facility] Administration Oxycodone HCl 5 - 10 mg 01/02/18 16:33 01/03/18 06:57 Oxyir PO 10 mg Q4H PRN PRN Administration MOD-SEVERE PAIN (4-10/10) Pantoprazole Sodium 20 mg 01/03/18 08:00 01/03/18 09:25 Protonix PO 20 mg DAILY@0800 [facility] Administration Polyethylene Glycol 17 gm 01/03/18 08:00 01/03/18 09:24 Miralax PO 17 gm DAILY@0800 [facility] Administration Pregabalin 100 mg 01/03/18 08:00 01/03/18 09:04 Lyrica PO 100 mg BID@0800,1800 [facility] Administration Senna/Docusate Sodium 2 tablet 01/03/18 08:00 01/03/18 09:05 Senokot-S, Mariluz-Colace PO 2 tablet BID@0800,1800 [facility] Administration Tuberculin PPD 5 tu 01/10/18 10:00 Tubersol, Aplisol, Ppd ID 01/10/18 10:01 X1 ONE Problem List (Last Reviewed 11/13/17 @ 12:25 by Cem Rice MD) Osteoarthritis of right knee (Chronic) Diabetes mellitus (Chronic) Thyroid nodule (Chronic) Chronic kidney disease (Chronic) Vital Signs Temp Pulse Resp BP Pulse Ox 97.7 F L 90 20 H 154/79 H 95 01/02/18 16:21 01/02/18 16:21 01/02/18 16:21 01/02/18 16:21 01/02/18 16:21 Oxygen Delivery Method Room Air Weight: 79.742 kg Body Mass Index (BMI) 33.2 Finger Stick Blood Glucose 210 Sodium 139 mmol/L (136-145) 01/03/18 05:15 Potassium 4.4 mmol/L (3.5-5.1) 01/03/18 05:15 Chloride 102 mmol/L (98-107) 01/03/18 05:15 Carbon Dioxide 28.0 mmol/L (21.0-32.0) 01/03/18 05:15 Anion Gap 9 (5-15) 01/03/18 05:15 BUN 27 mg/dL (7-18) H 01/03/18 05:15 Creatinine 1.27 mg/dL (0.55-1.02) H 01/03/18 05:15 Est GFR (MDRD) Af Amer 53 mL/min (>60) L 01/03/18 05:15 Est GFR (MDRD) Non-Af 44 mL/min (>60) L 01/03/18 05:15 BUN/Creatinine Ratio 21.3 RATIO (10-20) H 01/03/18 05:15 Glucose 235 mg/dL (74-106) H 01/03/18 05:15 Assessment/Plan: 1) Pain APAP scheduled, pregabalin, oxycodone prn. Continue to monitor daily pain scores, prn medication use. 2) Gout Allopurinol twice daily. Continue to monitor gout sxs. 3) HTN Lisinopril, HCTZ. Continue to monitor renal function, electrolytes, BP/HR. 4) DM2 Glargine at HS, lispro with meals. Continue to monitor BGT, s/s hyper/hypoglycemia. 5) GI Pantoprazole daily. Continue to monitor s/s GI distress. 6) DVT PPx ASA twice daily. Continue to monitor s/s bleeding/clot. 7) Nutrition FA, D, Fe, Glucerna. Continue to monitor clinically. Psychotropic Medications: None Unnecessary Medications: None Bowel Regimen: 8) Senna/s, PEG, prn bisacodyl. Continue to monitor prn medication use, for constipation/diarrhea. Date of Note:: 01/03/18 - Provider Comments Provider responsibility: Provider responsible to enter orders to implement recommendations <Jonas Cornejo Chi - Last Filed: 01/03/18 13:12> Progress Note - Pharmacy Subjective: [] Objective: Allergies duloxetine [From Cymbalta] Allergy (Verified 12/27/17 07:10) Unknown linagliptin [From Tradjenta] Allergy (Verified 12/27/17 07:10) Hives oxycodone [From OxyContin] Allergy (Verified 12/27/17 07:10) Rash Current Medications Generic Name Dose Route Start Last Admin Trade Name Frekaryn PRN Reason Stop Dose Admin Acetaminophen 1,000 mg 01/03/18 08:00 01/03/18 09:04 Tylenol PO 1,000 mg 0800,1400,2200 [facility] Administration Allopurinol 100 mg 01/03/18 08:00 01/03/18 09:04 Zyloprim PO 100 mg BID@0800,1800 [facility] Administration Aspirin 81 mg 01/02/18 17:00 01/03/18 09:06 [facility] Bisacodyl 10 mg 01/02/18 20:13 Dulcolax PO DAILY PRN Constipation Cholecalciferol 5,000 unit 01/03/18 08:00 01/03/18 09:05 Vitamin D PO 5,000 unit DAILY@0800 [facility] Administration Ferrous Sulfate 325 mg 01/03/18 08:00 01/03/18 09:06 [facility] Folic Acid 1 mg 01/03/18 08:00 01/03/18 09:05 Folic Acid PO 1 mg DAILY@0800 [facility] Administration Hydrochlorothiazide 25 mg 01/03/18 08:00 01/03/18 09:05 Hctz PO 25 mg DAILY@0800 [facility] Administration Insulin Glargine 40 units 01/02/18 22:00 01/02/18 21:30 Lantus ([facility]) SC 40 units QHS [facility] Administration Insulin Human Lispro 18 unit 01/03/18 08:00 01/03/18 11:33 Humalog Kwikpen ([facility]) SC 18 units BREAKFAST [facility] Administration Insulin Human Lispro 18 unit 01/03/18 12:00 01/03/18 11:38 Humalog Kwikpen (Bk) SC 18 units LUNCH [facility] Administration Insulin Human Lispro 22 unit 01/02/18 17:00 01/02/18 17:59 Humalog Kwikpen ([facility]) SC 22 u SUPPER [facility] Administration Lisinopril 20 mg 01/03/18 08:00 01/03/18 09:25 Zestril PO 20 mg DAILY@0800 [facility] Administration Nutritional Formula (Lactose Free) 120 ml 01/02/18 17:00 01/03/18 11:32 Glucerna Shake PO 18 units 4X/DAY [facility] Administration Oxycodone HCl 5 - 10 mg 01/02/18 16:33 01/03/18 06:57 Oxyir PO 10 mg Q4H PRN PRN Administration MOD-SEVERE PAIN (4-10/10) Pantoprazole Sodium 20 mg 01/03/18 08:00 01/03/18 09:25 Protonix PO 20 mg DAILY@0800 [facility] Administration Polyethylene Glycol 17 gm 01/03/18 08:00 01/03/18 09:24 Miralax PO 17 gm DAILY@0800 [facility] Administration Pregabalin 100 mg 01/03/18 08:00 01/03/18 09:04 Lyrica PO 100 mg BID@0800,1800 [facility] Administration Senna/Docusate Sodium 2 tablet 01/03/18 08:00 01/03/18 09:05 Senokot-S, Mariluz-Colace PO 2 tablet BID@0800,1800 [facility] Administration Tuberculin PPD 5 tu 01/10/18 10:00 Tubersol, Aplisol, Ppd ID 01/10/18 10:01 X1 ONE Problem List (Last Reviewed 11/13/17 @ 12:25 by Cem Rice MD) Osteoarthritis of right knee (Chronic) Diabetes mellitus (Chronic) Thyroid nodule (Chronic) Chronic kidney disease (Chronic) Vital Signs Temp Pulse Resp BP Pulse Ox 97.7 F L 90 20 H 154/79 H 95 01/02/18 16:21 01/02/18 16:21 01/02/18 16:21 01/02/18 16:21 01/02/18 16:21 Oxygen Delivery Method Room Air Weight: 79.742 kg Body Mass Index (BMI) 33.2 Finger Stick Blood Glucose 210 Sodium 139 mmol/L (136-145) 01/03/18 05:15 Potassium 4.4 mmol/L (3.5-5.1) 01/03/18 05:15 Chloride 102 mmol/L (98-107) 01/03/18 05:15 Carbon Dioxide 28.0 mmol/L (21.0-32.0) 01/03/18 05:15 Anion Gap 9 (5-15) 01/03/18 05:15 BUN 27 mg/dL (7-18) H 01/03/18 05:15 Creatinine 1.27 mg/dL (0.55-1.02) H 01/03/18 05:15 Est GFR (MDRD) Af Amer 53 mL/min (>60) L 01/03/18 05:15 Est GFR (MDRD) Non-Af 44 mL/min (>60) L 01/03/18 05:15 BUN/Creatinine Ratio 21.3 RATIO (10-20) H 01/03/18 05:15 Glucose 235 mg/dL (74-106) H 01/03/18 05:15 Assessment/Plan: Psychotropic Medications: Unnecessary Medications: Bowel Regimen: - Provider Comments Provider responsibility: Provider responsible to enter orders to implement recommendations Provider Comments to Recommendations by Pharmacy: Agree
--- NOTE | 2018-01-03 12:36 | PHA.CONS_ITS ---
<RellreinaldoeliasHarvey D - Last Filed: 01/03/18 12:17> Progress Note - Pharmacy Subjective: TCU Admission Objective: Allergies duloxetine [From Cymbalta] Allergy (Verified 12/27/17 07:10) Unknown linagliptin [From Tradjenta] Allergy (Verified 12/27/17 07:10) Hives oxycodone [From OxyContin] Allergy (Verified 12/27/17 07:10) Rash Current Medications Generic Name Dose Route Start Last Admin Trade Name Freq PRN Reason Stop Dose Admin Acetaminophen 1,000 mg 01/03/18 08:00 01/03/18 09:04 Tylenol PO 1,000 mg 0800,1400,2200 [facility] Administration Allopurinol 100 mg 01/03/18 08:00 01/03/18 09:04 Zyloprim PO 100 mg BID@0800,1800 [facility] Administration Aspirin 81 mg 01/02/18 17:00 01/03/18 09:06 Aspirin, Baby PO 81 mg BIDCM [facility] Administration Bisacodyl 10 mg 01/02/18 20:13 Dulcolax PO DAILY PRN Constipation Cholecalciferol 5,000 unit 01/03/18 08:00 01/03/18 09:05 Vitamin D PO 5,000 unit DAILY@0800 [facility] Administration Ferrous Sulfate 325 mg 01/03/18 08:00 01/03/18 09:06 Ferrous Sulfate PO 325 mg DAILYCM [facility] Administration Folic Acid 1 mg 01/03/18 08:00 01/03/18 09:05 Folic Acid PO 1 mg DAILY@0800 [facility] Administration Hydrochlorothiazide 25 mg 01/03/18 08:00 01/03/18 09:05 Hctz PO 25 mg DAILY@0800 [facility] Administration Insulin Glargine 40 units 01/02/18 22:00 01/02/18 21:30 Lantus (Bkc) SC 40 units QHS [facility] Administration Insulin Human Lispro 18 unit 01/03/18 08:00 01/03/18 11:33 Humalog Kwikpen (Bkc) SC 18 units BREAKFAST [facility] Administration Insulin Human Lispro 18 unit 01/03/18 12:00 01/03/18 11:38 Humalog Kwikpen (Bkc) SC 18 units LUNCH [facility] Administration Insulin Human Lispro 22 unit 01/02/18 17:00 01/02/18 17:59 Humalog Kwikpen (Bkc) SC 22 u SUPPER [facility] Administration Lisinopril 20 mg 01/03/18 08:00 01/03/18 09:25 Zestril PO 20 mg DAILY@0800 [facility] Administration Nutritional Formula (Lactose Free) 120 ml 01/02/18 17:00 01/03/18 11:32 Glucerna Shake PO 18 units 4X/DAY [facility] Administration Oxycodone HCl 5 - 10 mg 01/02/18 16:33 01/03/18 06:57 Oxyir PO 10 mg Q4H PRN PRN Administration MOD-SEVERE PAIN (4-10/10) Pantoprazole Sodium 20 mg 01/03/18 08:00 01/03/18 09:25 Protonix PO 20 mg DAILY@0800 [facility] Administration Polyethylene Glycol 17 gm 01/03/18 08:00 01/03/18 09:24 Miralax PO 17 gm DAILY@0800 [facility] Administration Pregabalin 100 mg 01/03/18 08:00 01/03/18 09:04 Lyrica PO 100 mg BID@0800,1800 [facility] Administration Senna/Docusate Sodium 2 tablet 01/03/18 08:00 01/03/18 09:05 Senokot-S, Mariluz-Colace PO 2 tablet BID@0800,1800 [facility] Administration Tuberculin PPD 5 tu 01/10/18 10:00 Tubersol, Aplisol, Ppd ID 01/10/18 10:01 X1 ONE Problem List (Last Reviewed 11/13/17 @ 12:25 by Cem Rice MD) Osteoarthritis of right knee (Chronic) Diabetes mellitus (Chronic) Thyroid nodule (Chronic) Chronic kidney disease (Chronic) Vital Signs Temp Pulse Resp BP Pulse Ox 97.7 F L 90 20 H 154/79 H 95 01/02/18 16:21 01/02/18 16:21 01/02/18 16:21 01/02/18 16:21 01/02/18 16:21 Oxygen Delivery Method Room Air Weight: 79.742 kg Body Mass Index (BMI) 33.2 Finger Stick Blood Glucose 210 Sodium 139 mmol/L (136-145) 01/03/18 05:15 Potassium 4.4 mmol/L (3.5-5.1) 01/03/18 05:15 Chloride 102 mmol/L (98-107) 01/03/18 05:15 Carbon Dioxide 28.0 mmol/L (21.0-32.0) 01/03/18 05:15 Anion Gap 9 (5-15) 01/03/18 05:15 BUN 27 mg/dL (7-18) H 01/03/18 05:15 Creatinine 1.27 mg/dL (0.55-1.02) H 01/03/18 05:15 Est GFR (MDRD) Af Amer 53 mL/min (>60) L 01/03/18 05:15 Est GFR (MDRD) Non-Af 44 mL/min (>60) L 01/03/18 05:15 BUN/Creatinine Ratio 21.3 RATIO (10-20) H 01/03/18 05:15 Glucose 235 mg/dL (74-106) H 01/03/18 05:15 Assessment/Plan: 1) Pain APAP scheduled, pregabalin, oxycodone prn. Continue to monitor daily pain scores, prn medication use. 2) Gout Allopurinol twice daily. Continue to monitor gout sxs. 3) HTN Lisinopril, HCTZ. Continue to monitor renal function, electrolytes, BP/HR. 4) DM2 Glargine at HS, lispro with meals. Continue to monitor BGT, s/s hyper/ hypoglycemia. 5) GI Pantoprazole daily. Continue to monitor s/s GI distress. 6) DVT PPx ASA twice daily. Continue to monitor s/s bleeding/clot. 7) Nutrition FA, D, Fe, Glucerna. Continue to monitor clinically. Psychotropic Medications: None Unnecessary Medications: None Bowel Regimen: 8) Senna/s, PEG, prn bisacodyl. Continue to monitor prn medication use, for constipation/diarrhea. Date of Note:: 01/03/18 - Provider Comments Provider responsibility: Provider responsible to enter orders to implement recommendations <Jonas Cornejo Chi - Last Filed: 01/03/18 13:12> Progress Note - Pharmacy Subjective: [] Objective: Allergies duloxetine [From Cymbalta] Allergy (Verified 12/27/17 07:10) Unknown linagliptin [From Tradjenta] Allergy (Verified 12/27/17 07:10) Hives oxycodone [From OxyContin] Allergy (Verified 12/27/17 07:10) Rash Current Medications Generic Name Dose Route Start Last Admin Trade Name Frekaryn PRN Reason Stop Dose Admin Acetaminophen 1,000 mg 01/03/18 08:00 01/03/18 09:04 Tylenol PO 1,000 mg 0800,1400,2200 [facility] Administration Allopurinol 100 mg 01/03/18 08:00 01/03/18 09:04 Zyloprim PO 100 mg BID@0800,1800 [facility] Administration Aspirin 81 mg 01/02/18 17:00 01/03/18 09:06 [facility] Bisacodyl 10 mg 01/02/18 20:13 Dulcolax PO DAILY PRN Constipation Cholecalciferol 5,000 unit 01/03/18 08:00 01/03/18 09:05 Vitamin D PO 5,000 unit DAILY@0800 [facility] Administration Ferrous Sulfate 325 mg 01/03/18 08:00 01/03/18 09:06 [facility] Folic Acid 1 mg 01/03/18 08:00 01/03/18 09:05 Folic Acid PO 1 mg DAILY@0800 [facility] Administration Hydrochlorothiazide 25 mg 01/03/18 08:00 01/03/18 09:05 Hctz PO 25 mg DAILY@0800 [facility] Administration Insulin Glargine 40 units 01/02/18 22:00 01/02/18 21:30 Lantus ([facility]) SC 40 units QHS [facility] Administration Insulin Human Lispro 18 unit 01/03/18 08:00 01/03/18 11:33 Humalog Kwikpen ([facility]) SC 18 units BREAKFAST [facility] Administration Insulin Human Lispro 18 unit 01/03/18 12:00 01/03/18 11:38 Humalog Kwikpen (Bk) SC 18 units LUNCH [facility] Administration Insulin Human Lispro 22 unit 01/02/18 17:00 01/02/18 17:59 Humalog Kwikpen ([facility]) SC 22 u SUPPER [facility] Administration Lisinopril 20 mg 01/03/18 08:00 01/03/18 09:25 Zestril PO 20 mg DAILY@0800 [facility] Administration Nutritional Formula (Lactose Free) 120 ml 01/02/18 17:00 01/03/18 11:32 Glucerna Shake PO 18 units 4X/DAY [facility] Administration Oxycodone HCl 5 - 10 mg 01/02/18 16:33 01/03/18 06:57 Oxyir PO 10 mg Q4H PRN PRN Administration MOD-SEVERE PAIN (4-10/10) Pantoprazole Sodium 20 mg 01/03/18 08:00 01/03/18 09:25 Protonix PO 20 mg DAILY@0800 [facility] Administration Polyethylene Glycol 17 gm 01/03/18 08:00 01/03/18 09:24 Miralax PO 17 gm DAILY@0800 [facility] Administration Pregabalin 100 mg 01/03/18 08:00 01/03/18 09:04 Lyrica PO 100 mg BID@0800,1800 [facility] Administration Senna/Docusate Sodium 2 tablet 01/03/18 08:00 01/03/18 09:05 Senokot-S, Mariluz-Colace PO 2 tablet BID@0800,1800 [facility] Administration Tuberculin PPD 5 tu 01/10/18 10:00 Tubersol, Aplisol, Ppd ID 01/10/18 10:01 X1 ONE Problem List (Last Reviewed 11/13/17 @ 12:25 by Cem Rice MD) Osteoarthritis of right knee (Chronic) Diabetes mellitus (Chronic) Thyroid nodule (Chronic) Chronic kidney disease (Chronic) Vital Signs Temp Pulse Resp BP Pulse Ox 97.7 F L 90 20 H 154/79 H 95 01/02/18 16:21 01/02/18 16:21 01/02/18 16:21 01/02/18 16:21 01/02/18 16:21 Oxygen Delivery Method Room Air Weight: 79.742 kg Body Mass Index (BMI) 33.2 Finger Stick Blood Glucose 210 Sodium 139 mmol/L (136-145) 01/03/18 05:15 Potassium 4.4 mmol/L (3.5-5.1) 01/03/18 05:15 Chloride 102 mmol/L (98-107) 01/03/18 05:15 Carbon Dioxide 28.0 mmol/L (21.0-32.0) 01/03/18 05:15 Anion Gap 9 (5-15) 01/03/18 05:15 BUN 27 mg/dL (7-18) H 01/03/18 05:15 Creatinine 1.27 mg/dL (0.55-1.02) H 01/03/18 05:15 Est GFR (MDRD) Af Amer 53 mL/min (>60) L 01/03/18 05:15 Est GFR (MDRD) Non-Af 44 mL/min (>60) L 01/03/18 05:15 BUN/Creatinine Ratio 21.3 RATIO (10-20) H 01/03/18 05:15 Glucose 235 mg/dL (74-106) H 01/03/18 05:15 Assessment/Plan: Psychotropic Medications: Unnecessary Medications: Bowel Regimen: - Provider Comments Provider responsibility: Provider responsible to enter orders to implement recommendations Provider Comments to Recommendations by Pharmacy: Agree
--- NOTE | 2018-01-03 13:16 | CASEMGMT ---
Addendum entered by Cheri Holt 01/03/18 13:20: See attached assessment for full assessment. Cheri JAMES Original Note: SW met with patient for initial assessment. Patient has Passport and her Accounts Receivable Representative is [employer]. Ext [phone]. She receives aide services from [facility], 2 hrs on Wednesdays. She also has a medical alert through [facility]. Plan: Patient would like to return home, resume Passport services, and have home PT/OT if needed. Cheri PITTS TOW DRIVER
[2018-01-03 15:42] VITALS: BP 134/64; PULSE 77; RESP 20; TEMP 36.6; O2SAT 98
[2018-01-03 17:05] LABS: Bedside Glucose 311 mg/dL (70-110)
[2018-01-03] MEDS: Insulin Lispro 100 UNIT/ML INSULN.PEN 22 UNIT SC (17:39)
[2018-01-03 20:40] VITALS: PULSE 75; O2SAT 98
[2018-01-03 20:56] LABS: Bedside Glucose 137 mg/dL (70-110)
[2018-01-04] MEDS: oxyCODONE 5 MG Tablet PO ×2 (04:35→17:07)
[2018-01-04 07:00] LABS: Bedside Glucose 185 mg/dL (70-110)
[2018-01-04] MEDS: Acetaminophen 500 MG Tablet 1000 MG PO ×3 (08:49→21:25)
[2018-01-04] MEDS: Insulin Lispro 100 UNIT/ML INSULN.PEN 18 UNIT SC ×2 (08:51→11:35)
[2018-01-04] MEDS: Pregabalin 50 MG Capsule 100 MG PO ×2 (09:50→17:07)
[2018-01-04] MEDS: Allopurinol 100 MG Tablet PO ×2 (09:51→17:07)
[2018-01-04] MEDS: Lisinopril 20 MG Tablet PO (09:51)
[2018-01-04] MEDS: Pantoprazole Sodium 20 MG Tablet PO (09:52)
[2018-01-04] MEDS: Aspirin 81 MG TAB.CHEW PO ×2 (09:52→17:07)
[2018-01-04] MEDS: hydroCHLOROthiazide 25 MG Tablet PO (09:53)
[2018-01-04] MEDS: Folic Acid 1 MG Tablet PO (09:53)
[2018-01-04] MEDS: Ferrous Sulfate 325 MG Tablet PO (09:53)
[2018-01-04 11:15] LABS: Bedside Glucose 311 mg/dL (70-110)
[2018-01-04 15:31] VITALS: BP 122/55; PULSE 77; RESP 16; TEMP 36.7; O2SAT 96
[2018-01-04 16:50] LABS: Bedside Glucose 180 mg/dL (70-110)
[2018-01-04] MEDS: Senna/Docusate Sodium 1 Tablet 2 TABLET PO (17:07)
[2018-01-04] MEDS: Insulin Lispro 100 UNIT/ML INSULN.PEN 22 UNIT SC (17:10)
--- NOTE | 2018-01-04 20:11 | NURSING ---
Pt c/o intense neuropathy pain to RLE this evening. Pt reports Neurontin not helpful in past. Dr Cornejo notified; N.O. for Depakote 500mg BID for 2 days.
[2018-01-04 20:55] LABS: Bedside Glucose 144 mg/dL (70-110)
[2018-01-04] MEDS: Divalproex Sodium 250 MG Tablet 500 MG PO (21:24)
[2018-01-05] MEDS: Divalproex Sodium 250 MG Tablet 500 MG PO ×2 (05:24→18:14)
[2018-01-05] MEDS: oxyCODONE 5 MG Tablet PO ×2 (05:27→18:15)
[2018-01-05 05:41] LABS: Hematocrit 26.7 % (37-47); Hemoglobin 8.2 g/dl (12.0-15.0)
[2018-01-05 06:35] LABS: Bedside Glucose 162 mg/dL (70-110)
[2018-01-05] MEDS: Pregabalin 50 MG Capsule 100 MG PO ×2 (09:02→18:15)
[2018-01-05] MEDS: Insulin Lispro 100 UNIT/ML INSULN.PEN 18 UNIT SC ×3 (09:04→11:43)
[2018-01-05] MEDS: Acetaminophen 500 MG Tablet 1000 MG PO ×3 (09:05→21:14)
[2018-01-05] MEDS: Folic Acid 1 MG Tablet PO (09:06)
[2018-01-05] MEDS: Pantoprazole Sodium 20 MG Tablet PO (09:06)
[2018-01-05] MEDS: hydroCHLOROthiazide 25 MG Tablet PO (09:06)
[2018-01-05] MEDS: Aspirin 81 MG TAB.CHEW PO ×2 (09:06→18:14)
[2018-01-05] MEDS: Ferrous Sulfate 325 MG Tablet PO (09:06)
[2018-01-05] MEDS: Senna/Docusate Sodium 1 Tablet 2 TABLET PO ×2 (09:07→18:14)
[2018-01-05] MEDS: Allopurinol 100 MG Tablet PO ×2 (09:10→18:14)
[2018-01-05] MEDS: Lisinopril 20 MG Tablet PO (09:10)
[2018-01-05 11:21] LABS: Bedside Glucose 136 mg/dL (70-110)
[2018-01-05 15:35] VITALS: BP 112/51; PULSE 76; RESP 20; TEMP 36.5; O2SAT 90
[2018-01-05 17:06] LABS: Bedside Glucose 146 mg/dL (70-110)
[2018-01-05] MEDS: Insulin Lispro 100 UNIT/ML INSULN.PEN 22 UNIT SC (18:16)
[2018-01-05 21:11] LABS: Bedside Glucose 91 mg/dL (70-110)
[2018-01-06 06:55] LABS: Bedside Glucose 148 mg/dL (70-110)
[2018-01-06] MEDS: Aspirin 81 MG TAB.CHEW PO ×2 (08:44→17:23)
[2018-01-06] MEDS: Folic Acid 1 MG Tablet PO (08:44)
[2018-01-06] MEDS: Acetaminophen 500 MG Tablet 1000 MG PO ×2 (08:45→21:20)
[2018-01-06] MEDS: Ferrous Sulfate 325 MG Tablet PO (08:45)
[2018-01-06] MEDS: hydroCHLOROthiazide 25 MG Tablet PO (08:46)
[2018-01-06] MEDS: Pantoprazole Sodium 20 MG Tablet PO (08:47)
[2018-01-06] MEDS: Pregabalin 50 MG Capsule 100 MG PO ×2 (08:52→17:22)
[2018-01-06] MEDS: Divalproex Sodium 250 MG Tablet 500 MG PO ×2 (08:52→17:22)
[2018-01-06] MEDS: oxyCODONE 5 MG Tablet PO ×2 (08:54→17:25)
[2018-01-06] MEDS: Lisinopril 20 MG Tablet PO (08:55)
[2018-01-06] MEDS: Allopurinol 100 MG Tablet PO ×2 (08:55→17:22)
[2018-01-06] MEDS: Insulin Lispro 100 UNIT/ML INSULN.PEN 18 UNIT SC ×2 (08:57→12:00)
[2018-01-06 09:01] VITALS: BP 132/64; PULSE 80
[2018-01-06 11:30] LABS: Bedside Glucose 118 mg/dL (70-110)
[2018-01-06 15:21] VITALS: BP 112/53; PULSE 80; RESP 16; TEMP 36.3; O2SAT 96
[2018-01-06 16:51] LABS: Bedside Glucose 106 mg/dL (70-110)
[2018-01-06] MEDS: Senna/Docusate Sodium 1 Tablet 2 TABLET PO (17:22)
[2018-01-06 21:06] LABS: Bedside Glucose 200 mg/dL (70-110)
--- NOTE | 2018-01-06 21:23 | NURSING ---
Pt given half the order dose on tylenol stating, she was only taking 500 mg before and she has been having problems with stomach hurting. ANSLEY rosen
[2018-01-06 21:26] VITALS: RESP 16; O2SAT 97
[2018-01-06 21:47] VITALS: BP 138/69; PULSE 76; RESP 16; TEMP 36.8; O2SAT 97
[2018-01-07] MEDS: oxyCODONE 5 MG Tablet PO ×3 (00:59→21:50)
--- NOTE | 2018-01-07 01:10 | NURSING ---
Pt c/o pain in L knee and L toes rates pain level at a 10 out of 10. Pt has swelling to L knee d/t surgery no drainage and a little redness to saroj area. Pt didn't have polar care on the area stated she just took it off. Pt requested pain pill prn oxyir given at this time. Pt states that she should have taken the other tylenol that she refused earlier d/t thinking that it was messing with her stomach. Pt was also assisted to toilet by this nurse at this time. Will continue to monitor at this time.
[2018-01-07 06:56] LABS: Bedside Glucose 82 mg/dL (70-110)
[2018-01-07] MEDS: Senna/Docusate Sodium 1 Tablet 2 TABLET PO (08:37)
[2018-01-07] MEDS: Acetaminophen 500 MG Tablet 1000 MG PO ×3 (08:37→20:06)
[2018-01-07] MEDS: Pantoprazole Sodium 20 MG Tablet PO (08:38)
[2018-01-07] MEDS: Divalproex Sodium 250 MG Tablet 500 MG PO ×2 (08:38→17:48)
[2018-01-07] MEDS: hydroCHLOROthiazide 25 MG Tablet PO (08:38)
[2018-01-07] MEDS: Aspirin 81 MG TAB.CHEW PO ×2 (08:39→17:48)
[2018-01-07] MEDS: Lisinopril 20 MG Tablet PO (08:39)
[2018-01-07] MEDS: Allopurinol 100 MG Tablet PO ×2 (08:40→17:50)
[2018-01-07] MEDS: Pregabalin 50 MG Capsule 100 MG PO ×2 (08:43→17:51)
[2018-01-07 08:46] VITALS: BP 128/64; PULSE 74; O2SAT 95
[2018-01-07 11:01] LABS: Bedside Glucose 151 mg/dL (70-110)
[2018-01-07] MEDS: Glucerna Shake 120 ML LIQUID PO (11:20)
[2018-01-07] MEDS: Folic Acid 1 MG Tablet PO (11:21)
[2018-01-07] MEDS: Ferrous Sulfate 325 MG Tablet PO (11:21)
[2018-01-07] MEDS: Insulin Lispro 100 UNIT/ML INSULN.PEN 18 UNIT SC (11:52)
[2018-01-07 15:19] VITALS: BP 127/57; PULSE 76; RESP 20; TEMP 36.4; O2SAT 95
[2018-01-07 17:05] LABS: Bedside Glucose 72 mg/dL (70-110)
--- NOTE | 2018-01-07 17:20 | NURSING ---
AT 1630 AID CAME TO THIS NURSE AND STATED PT BLOOD SUGAR WAS 43. REPORTED TO ANSLEY VILLA . CASIE AND COOKIES GIVEN. WHEN ENTERED ROOM PT WAS EATING CANDY BAR. PT STATED SHE WAS SWEATING AND EYES BLURRY. STAYED WITH PT TILL PT STATED SHE WAS FEELING BETTER. 1700 PT BLOOD SUGAR NOW 72. WILL CONTINUE TO MONITOR.
[2018-01-07 20:51] LABS: Bedside Glucose 252 mg/dL (70-110)
[2018-01-08 06:56] LABS: Bedside Glucose 98 mg/dL (70-110)
[2018-01-08] MEDS: Pregabalin 50 MG Capsule 100 MG PO ×2 (08:37→17:32)
[2018-01-08] MEDS: Senna/Docusate Sodium 1 Tablet 2 TABLET PO ×2 (08:37→17:29)
[2018-01-08] MEDS: Aspirin 81 MG TAB.CHEW PO ×2 (08:37→17:29)
[2018-01-08] MEDS: hydroCHLOROthiazide 25 MG Tablet PO (08:38)
[2018-01-08] MEDS: Divalproex Sodium 250 MG Tablet 500 MG PO ×2 (08:38→17:29)
[2018-01-08] MEDS: Pantoprazole Sodium 20 MG Tablet PO (08:38)
[2018-01-08] MEDS: Lisinopril 20 MG Tablet PO (08:39)
[2018-01-08] MEDS: Allopurinol 100 MG Tablet PO ×2 (08:39→17:29)
[2018-01-08] MEDS: Acetaminophen 500 MG Tablet 1000 MG PO ×3 (08:40→20:30)
[2018-01-08] MEDS: Insulin Lispro 100 UNIT/ML INSULN.PEN 7 UNIT SC ×3 (08:42→17:53)
[2018-01-08 08:47] VITALS: BP 138/61; PULSE 79
[2018-01-08] MEDS: Glucerna Shake 120 ML LIQUID PO ×2 (11:16→20:26)
[2018-01-08] MEDS: Folic Acid 1 MG Tablet PO (11:18)
[2018-01-08] MEDS: Ferrous Sulfate 325 MG Tablet PO (11:18)
[2018-01-08 11:26] LABS: Bedside Glucose 118 mg/dL (70-110)
[2018-01-08 15:30] VITALS: BP 125/64; PULSE 78; RESP 18; TEMP 36.8; O2SAT 96
[2018-01-08 16:51] LABS: Bedside Glucose 111 mg/dL (70-110)
[2018-01-08] MEDS: oxyCODONE 5 MG Tablet PO (19:50)
[2018-01-08 20:41] VITALS: PULSE 74; RESP 16; O2SAT 98
[2018-01-08 21:01] LABS: Bedside Glucose 136 mg/dL (70-110)
[2018-01-09 06:15] LABS: Bedside Glucose 107 mg/dL (70-110)
[2018-01-09] MEDS: Allopurinol 100 MG Tablet PO ×2 (08:34→17:19)
[2018-01-09] MEDS: Pregabalin 50 MG Capsule 100 MG PO ×2 (08:34→17:19)
[2018-01-09] MEDS: Pantoprazole Sodium 20 MG Tablet PO (08:34)
[2018-01-09] MEDS: hydroCHLOROthiazide 25 MG Tablet PO (08:35)
[2018-01-09] MEDS: Lisinopril 20 MG Tablet PO (08:35)
[2018-01-09] MEDS: Acetaminophen 500 MG Tablet 1000 MG PO ×3 (08:35→20:44)
[2018-01-09] MEDS: Aspirin 81 MG TAB.CHEW PO ×2 (08:35→17:19)
[2018-01-09] MEDS: Divalproex Sodium 250 MG Tablet 500 MG PO ×2 (08:36→17:19)
[2018-01-09] MEDS: Senna/Docusate Sodium 1 Tablet 2 TABLET PO ×2 (08:36→17:19)
[2018-01-09] MEDS: Insulin Lispro 100 UNIT/ML INSULN.PEN 7 UNIT SC ×3 (08:38→17:23)
[2018-01-09 10:00] VITALS: PULSE 72; RESP 72; O2SAT 96
[2018-01-09 11:21] LABS: Bedside Glucose 177 mg/dL (70-110)
[2018-01-09] MEDS: Ferrous Sulfate 325 MG Tablet PO (11:36)
[2018-01-09] MEDS: Folic Acid 1 MG Tablet PO (11:36)
[2018-01-09] MEDS: Glucerna Shake 120 ML LIQUID PO (11:37)
[2018-01-09] MEDS: oxyCODONE 5 MG Tablet PO (12:10)
--- NOTE | 2018-01-09 14:41 | CASEMGMT ---
Social Work Spoke with resident in room. Resident requesting for discharge date to be set for 01/10/18. Spoke with staff/therapy, 01/10/18 is an agreeable date at this time. Resident plans to discharge to home alone with family for support. This social security specialist communicating that physical therapy is recommending for resident to have continued services within the home. Resident is agreeable to recommendation and requesting for outpatient physical therapy to be set up through [facility] [phone]. Resident reporting to have all needed durable medical equipment already set up within the home. Resident daughter to provide transportation home for resident at time of discharge. [facility] Resident voicing no further needs at this time. Support given. Telephone call to Olinda Marin. Appointment set up for 01/11/18 @ 3:30. Order to be faxed when obtained. Telephone call to Compa ZHANG. This social security specialist communicating resident discharge date and plan. Proposed discharge date: 01/10/18 PLAN: Discharge to home with PASSPORT services and outpatient physical therapy. Paty DUONG, ROLLER VARNISHER
--- NOTE | 2018-01-09 15:34 | CASEMGMT ---
Brief interview for mental status (BIMS) and resident mood interview (PHQ-9) completed on this day. BIMS score 15/15. PHQ-9 score
[2018-01-09 16:00] VITALS: BP 138/62; PULSE 77; RESP 20; TEMP 36; O2SAT 98
[2018-01-09 16:56] LABS: Bedside Glucose 138 mg/dL (70-110)
--- NOTE | 2018-01-09 20:32 | PCM.DC ---
- Discharge Diagnoses Current Active Problems: Current Active and Chronic Problems (Last Reviewed 11/13/17 @ 12:25 by Cem Rice MD) Osteoarthritis of right knee (Chronic) Diabetes mellitus (Chronic) Thyroid nodule (Chronic) Chronic kidney disease (Chronic) You will use the following diet at home:: No restrictions, Regular Your food should be the consistency of: Regular Your liquids should be the consistency of: Regular/Thin Discharge Activity: Return to Normal Activity, May Shower, Use Walker Weight Bearing Status: Weight bearing as tolerated Call your doctor if you observe: Fever of 101 or Higher, Inability to urinate, Inability to have a bowel movement, Shortness of breath, Chest pain, Uncontrolled pain Allergies/Adverse Reactions: Allergies duloxetine [From Cymbalta] Allergy (Verified 12/27/17 07:10) Unknown linagliptin [From Tradjenta] Allergy (Verified 12/27/17 07:10) Hives oxycodone [From OxyContin] Allergy (Verified 12/27/17 07:10) Rash Medications to take at Discharge Benazepril/Hydrochlorothiazide [Benazepril-Hctz 20-25 mg Tab] 1 tablet PO DAILY 02/21/17 Cholecalciferol (VIT D3) [Vitamin D3] 5,000 unit PO DAILY 02/21/17 Omeprazole [Prilosec] 1 capsule PO DAILY 02/21/17 allopurinol 100 mg tablet 1 tab PO BID tab 08/15/17 Blood Sugar Diagnostic [Assure Prism Multi] 0 applic .ROUTE .MEDSUPPLY 10/18/17 Caltrate Gummy Bites 1 tablet PO DAILY 10/30/17 Folic Acid 1 tablet PO DAILY 10/30/17 Ferrous Sulfate [Iron] 325 mg PO DAILY 12/13/17 Pregabalin [Lyrica] 100 mg PO BID 12/13/17 Acetaminophen [Tylenol] 1,000 mg PO Q8 01/02/18 Aspirin [Aspirin, Baby] 81 mg PO BIDCM 01/02/18 Senna/Docusate Sodium [Senokot-S] 2 tablet PO BID 01/02/18 Divalproex Sodium [Depakote] 500 mg PO BIDCM #120 tab 01/09/18 Insulin Glargine [Lantus SoloStar Pen] 10 units SC 0800,1800 pen 01/09/18 Insulin Lispro [Humalog KwikPen] 7 unit SC TIDAC insuln.pen 01/09/18 Oxycodone [Oxyir] 5 - 10 mg PO Q4H PRN PRN 6 Days #30 tab 01/09/18 Polyethylene Glycol 3350 [Miralax] 17 gm PO DAILY@0800 #30 packet 01/09/18 The following prescriptions were given: Oxycodone [Oxyir] 5 - 10 mg PO Q4H PRN PRN 6 Days #30 tab PRN Reason: Mod-Severe Pain (-02/14) Polyethylene Glycol 3350 [Miralax] 17 gm PO DAILY@0800 #30 packet Divalproex Sodium [Depakote] 500 mg PO BIDCM #120 tab Primary Care Physician: Марина Weir MD [Primary Care Provider] - Please follow up with your Primary Care Physician in: 1 week. Test Results: Test results from this visit will be discussed in further detail at your follow-up appointment, if applicable. Please Follow Up With: Julio C Hayes PA-C When: 2 weeks. Please Follow Up With: [facility] - Outpatient Physical therapy When: 1 week. Proposed Discharge Date: 01/10/18
--- NOTE | 2018-01-09 20:35 | PCM.DC.SUM ---
Discharge Date and Diagnosis Date of Admission: 01/02/18 Date of Discharge: 01/10/18 - Secondary Discharge Diagnosis Chronic Problems (Last Reviewed 11/13/17 @ 12:25 by Cem Rice MD) Hyperlipemia (Chronic) GERD (gastroesophageal reflux disease) (Chronic) Gout (Chronic) HTN (hypertension) (Chronic) Osteoarthritis of right knee (Chronic) Diabetes mellitus (Chronic) Thyroid nodule (Chronic) Chronic kidney disease (Chronic) Osteoporosis (Chronic) Patient discontinued her biphosphanate Does not explain why. Wishes to discuss diabetes and thyroid today. Controlled type 2 diabetes mellitus with insulin therapy (Chronic) Reports long standing control until recent illness. Today she reports she used to use her sliding scale. We discussed using this anytime she become ill to avoid her having high BG. Today her Bg have extrem varied numbers. She does mention she goes to exercise 3 times a week which probably causes her low BG days. She also has two different breakfast regimens. One would need more insulin than the other as it contins fruit and the other is mostly protin. We discussed these issues and she is enc to make insulin adjustment for exercise and diet changes. Thyroid goiter (Chronic) Patient has known thyroid goiter . Has multiple nodules and I will refer to surgeon Hospital Course and Treatment Imaging Results: 01/02/18 16:42 Diet: Calorie Controlled Is pt able to select menu?: Yes How many daily calories?: 1800 calorie Labs (Last 48 Hours) 01/07/18 01/08/18 01/08/18 20:44 06:38 11:06 POC Glucose 252 H 98 118 H 01/08/18 01/08/18 01/09/18 16:48 20:42 06:03 POC Glucose 111 H 136 H 107 01/09/18 01/09/18 11:03 16:51 POC Glucose 177 H 138 H Operations: None Procedures: None Summary of Care Provided: The patient is a 72 year old Female with below past medical history hospitalized for right total knee replacement 12/27/[address] Gannon, failed home discharge, admitted to TCU with debility, here for rehabilitation, strengthening, prior to discharge home alone. Resident c/o diabetic polyneuropathy pain despite Lyrica, she was prescribed Depakote 500MG twice daily, responded well, requested Rx to go home, consider tapering off Lyrica as resident states it is ineffective for her neuropathic pain. Discharge home with PASSPORT Services and outpatient Physical Therapy. Discharge Diet: No Restrictions Discharge Activity: Return to Normal Activity, May Shower, Use Walker Weight Bearing Status: Weight bearing as tolerated Call your doctor if you observe: Fever of 101 or Higher, Inability to urinate, Inability to have a bowel movement, Shortness of breath, Chest pain, Uncontrolled pain Home Medications: Medications to take at Discharge Benazepril/Hydrochlorothiazide [Benazepril-Hctz 20-25 mg Tab] 1 tablet PO DAILY 02/21/17 Cholecalciferol (VIT D3) [Vitamin D3] 5,000 unit PO DAILY 02/21/17 Omeprazole [Prilosec] 1 capsule PO DAILY 02/21/17 allopurinol 100 mg tablet 1 tab PO BID tab 08/15/17 Blood Sugar Diagnostic [Assure Prism Multi] 0 applic .ROUTE .MEDSUPPLY 10/18/17 Caltrate Gummy Bites 1 tablet PO DAILY 10/30/17 Folic Acid 1 tablet PO DAILY 10/30/17 Ferrous Sulfate [Iron] 325 mg PO DAILY 12/13/17 Pregabalin [Lyrica] 100 mg PO BID 12/13/17 Acetaminophen [Tylenol] 1,000 mg PO Q8 01/02/18 Aspirin [Aspirin, Baby] 81 mg PO BIDCM 01/02/18 Senna/Docusate Sodium [Senokot-S] 2 tablet PO BID 01/02/18 Divalproex Sodium [Depakote] 500 mg PO BIDCM #120 tab 01/09/18 Insulin Glargine [Lantus SoloStar Pen] 10 units SC 0800,1800 pen 01/09/18 Insulin Lispro [Humalog KwikPen] 7 unit SC TIDAC insuln.pen 01/09/18 Oxycodone [Oxyir] 5 - 10 mg PO Q4H PRN PRN 6 Days #30 tab 01/09/18 Polyethylene Glycol 3350 [Miralax] 17 gm PO DAILY@0800 #30 packet 01/09/18 Following Prescrptions Were Given to Patient: Oxycodone [Oxyir] 5 - 10 mg PO Q4H PRN PRN 6 Days #30 tab PRN Reason: Mod-Severe Pain (4-02/14) Polyethylene Glycol 3350 [Miralax] 17 gm PO DAILY@0800 #30 packet Divalproex Sodium [Depakote] 500 mg PO BIDCM #120 tab Primary Care Physician: Марина Weir MD [Primary Care Provider] - Please follow up with your Primary Care Physician in: 1 week. Please Follow Up With: Julio C Hayes PA-C When: 2 weeks. Please Follow Up With: [facility] - Outpatient Physical therapy When: 1 week. Disposition: Home Minutes spent on discharge:: 30 Patient Condition:: Stable Medical Necessity - Tobacco Use Smoking Status: Never smoker Tobacco Use: Non-smoker Meaningful Use Info Meaningful Use Diagnoses (Choose all that apply): None applicable
[2018-01-09 21:20] LABS: Bedside Glucose 170 mg/dL (70-110)
--- NOTE | 2018-01-09 21:29 | NURSING ---
Did not mean to save documentation for oxyir 10mg. Pt asked for pain medication, it was pulled and scanned but not given after pt wanted to try tylenol by itself first. Med returned to accudose as it was unopened.
[2018-01-10 05:55] LABS: Absolute Lymphocyte Count 1.32 X10^3/ul (0.83-4.51); Absolute Neutrophil Count 2.7 X10^3/uL (2.0-7.7); Basophil# 0.03 X10^3/uL; Basophil% 0.6 % (0-1); Eosinophils% 6.3 % (0-5); Hematocrit 30.4 % (37-47); Hemoglobin 9.2 g/dl (12.0-15.0); Lymphocyte # 1.32 X10^3/ul (4.0); Lymphocyte % 27.6 % (19-41); Mean Corp Hgb Conc 30.3 g/gl (32-36); Mean Corpuscular Hgb 27.7 pg (27.0-32.0); Mean Corpuscular Volume 91.6 fL (81-99); Monocyte# 0.39 X10^3/uL; Monocyte% 8.2 % (0-10); Neutrophil # 2.73 X10^3/uL (2.7-7.7); Neutrophil % 57.1 % (47-70); Platelet Count 276 K/mm3 (150-450); RBC Distribution Width CV 17.1 % (11.6-14.6); RBC Distribution Width SD 57.4 fl (35.1-43.9); Red Blood Count 3.32 M/mm3 (4.2-5.4); White Blood Count 4.8 K/mm3 (4.4-11.0)
[2018-01-10 06:00] LABS: POSITIVE COUNT NO; POSITIVE DIFFERENTIAL NO; POSITIVE MORPHOLOGY NO
[2018-01-10 06:18] LABS: Anion Gap 10 (5-15); BUN 28 mg/dL (7-18); BUN/Creat Ratio 22.2 RATIO (10-20); Calcium,Total 8.9 mg/dL (8.5-10.1); Chloride 102 mmol/L (98-107); Creatinine, Serum 1.26 mg/dL (0.55-1.02); EST Glomerular Filtration Rate 44 mL/min (>60); Est Glom Filt Rate - Afr Amer 54 mL/min (>60); Glucose 134 mg/dL (74-106); Potassium 4.3 mmol/L (3.5-5.1); Sodium Level 141 mmol/L (136-145)
[2018-01-10 06:56] LABS: Bedside Glucose 156 mg/dL (70-110)
[2018-01-10 07:35] LABS: Bedside Glucose 43 mg/dL (70-110)
[2018-01-10 07:35] LABS: Bedside Glucose 42 mg/dL (70-110)
[2018-01-10] MEDS: Divalproex Sodium 250 MG Tablet 500 MG PO (08:17)
[2018-01-10] MEDS: hydroCHLOROthiazide 25 MG Tablet PO (08:17)
[2018-01-10] MEDS: Aspirin 81 MG TAB.CHEW PO (08:17)
[2018-01-10] MEDS: Pantoprazole Sodium 20 MG Tablet PO (08:18)
[2018-01-10] MEDS: oxyCODONE 5 MG Tablet PO (08:20)
[2018-01-10] MEDS: Allopurinol 100 MG Tablet PO (08:25)
[2018-01-10] MEDS: Lisinopril 20 MG Tablet PO (08:25)
[2018-01-10] MEDS: Insulin Lispro 100 UNIT/ML INSULN.PEN 7 UNIT SC (08:27)
[2018-01-10] MEDS: Pregabalin 50 MG Capsule 100 MG PO (08:31)
[2018-01-10 08:32] VITALS: BP 128/60; PULSE 88; RESP 18; O2SAT 98
[2018-01-10 11:21] VITALS: BP 128/60; PULSE 88; RESP 18; TEMP 36.8; O2SAT 98
--- NOTE | 2018-01-15 11:16 | MDS.RN ---
Information for the mds was obtained from review of the clinical record, interview of resident, staff, and direct observation of resident's care.
== END 2018-01-10 09:45 | disposition home or self-care (01) | DRG 561 ==
PROVIDERS: Admitting Provider Family Medicine Geriatric Medicine; Family Provider Family Medicine; PCP Family Medicine; Visit Provider Family Medicine Geriatric Medicine
DX: Z47.1 Aftercare following joint replacement surgery (principal); Z96.651 Presence of right artificial knee joint; K21.9 Gastro-esophageal reflux disease without esophagitis; E78.5 Hyperlipidemia, unspecified; I12.9 Hypertensive chronic kidney disease with stage 1 through stage 4 chronic kidney disease, or unspecified chronic kidney disease; N18.9 Chronic kidney disease, unspecified; M10.9 Gout, unspecified; E11.22 Type 2 diabetes mellitus with diabetic chronic kidney disease; E04.1 Nontoxic single thyroid nodule; K58.9 Irritable bowel syndrome, unspecified; D50.9 Iron deficiency anemia, unspecified; E11.42 Type 2 diabetes mellitus with diabetic polyneuropathy; E04.9 Nontoxic goiter, unspecified
CPT/HCPCS: 36415; 80048; 82962; 85014; 85018; 85025; 97110; 97116; 97163; 97167; 97530; 97535; 97802

== ENCOUNTER → 2018-01-25 10:25 | Outpatient (CLI) | payer MEDICARE, MEDICAID, SELFPAY ==
[2018-01-25 12:09] LABS: Absolute Lymphocyte Count 1.19 X10^3/ul (0.83-4.51); Absolute Neutrophil Count 3.4 X10^3/uL (2.0-7.7); Basophil# 0.02 X10^3/uL; Basophil% 0.4 % (0-1); Eosinophil# 0.21 X10^3/uL; Hematocrit 36.6 % (37-47); Hemoglobin 11.4 g/dl (12.0-15.0); Lymphocyte # 1.19 X10^3/ul (4.0); Lymphocyte % 22.9 % (19-41); Mean Corp Hgb Conc 31.1 g/gl (32-36); Mean Corpuscular Hgb 28.1 pg (27.0-32.0); Mean Corpuscular Volume 90.1 fL (81-99); Mean Platelet Vol. 11.5 fl (6.2-12.0); Monocyte# 0.38 X10^3/uL; Monocyte% 7.3 % (0-10); Neutrophil # 3.39 X10^3/uL (2.7-7.7); Neutrophil % 65.2 % (47-70); Platelet Count 180 K/mm3 (150-450); RBC Distribution Width CV 14.9 % (11.6-14.6); RBC Distribution Width SD 48.5 fl (35.1-43.9); Red Blood Count 4.06 M/mm3 (4.2-5.4); White Blood Count 5.2 K/mm3 (4.4-11.0)
[2018-01-25 12:13] LABS: POSITIVE COUNT NO; POSITIVE DIFFERENTIAL NO; POSITIVE MORPHOLOGY NO
== END ==
PROVIDERS: Family Provider Family Medicine; PCP Family Medicine; Visit Provider Family Medicine
DX: I26.99 Other pulmonary embolism without acute cor pulmonale (principal); Z79.01 Long term (current) use of anticoagulants
CPT/HCPCS: 36415; 85025

== ENCOUNTER → 2018-06-13 07:49 | Outpatient (CLI) | payer MEDICARE, MEDICAID, SELFPAY ==
--- NOTE | 2018-06-13 11:10 | NEURO_ITS ---
NCS and/or EMG Patient Report Ordering Doctor: Nel Clayton DATE OF SERVICE: 06/13/18 This is a bilateral lower extremity nerve conduction study and a right lower extremity EMG performed on this 72-year-old female with a history of pain and loss of sensation in her right lower extremity only present since back surgery. She does have a history of diabetes but she says her hemoglobin A1c is approximately 6.5 and has never been higher than 6.8. On examination she has decreased sensation in a right annual sensory distribution and a right medial femoral cutaneous nerve distribution. She also has weakness with right foot dorsiflexion. Right lower extremity sensory and motor nerve conduction study is performed as well as left lower extremity sensory and motor nerve conduction study. The right common peroneal motor amplitudes are diffusely reduced with prolonged latencies and mildly reduced conduction velocities. The left common peroneal motor responses are normal. The tibial motor responses bilaterally are preserved and the sural sensory as well as superficial peroneal sensory responses bilaterally are preserved. F-wave latencies from the tibial and common peroneal nerves bilaterally are normal however H reflex responses from the tibial nerves bilaterally are reduced. Right lower extremity needle electromyography is performed. Muscles evaluated included the extensor digitorum brevis, abductor hallucis, medial gastrocnemius, anterior tibialis, vastus lateralis, vastus medialis and right L5 and S1 paraspinal muscles. There was large motor units noted in small muscles of the foot but no abnormal insertional activity or pathologic spontaneous activity. The anterior tibialis muscle did demonstrate 2+ fibrillation potentials and 1+ fibrillation potentials were noted in the right S1 paraspinal muscles. All other muscles demonstrated normal insertional activity with absence of patholog ic spontaneous activity and normal motor unit recruitment pattern as well as amplitude. Impression: Abnormal elective his like study of the lower extremities consistent with a right S1 radiculopathy, likely chronic.
== END ==
PROVIDERS: Family Provider Family Medicine; PCP Family Medicine; Referring Provider Clinical Nurse Specialist Acute Care; Visit Provider Clinical Nurse Specialist Acute Care
DX: G62.9 Polyneuropathy, unspecified (principal); R20.0 Anesthesia of skin; R20.2 Paresthesia of skin
CPT/HCPCS: 95886; 95911

== ENCOUNTER 2019-12-12 06:40 | Day surgery (SDC) | payer MEDICARE, MEDICAID, SELFPAY ==
[2019-11-13 15:31] VITALS: BMI 34.9
[2019-11-13 17:01] LABS: Absolute Lymphocyte Count 1.63 X10^3/uL (0.83-4.51); Basophil# 0.04 X10^3/uL; Basophil% 0.5 % (0-1); Eosinophil# 0.29 X10^3/uL; Hematocrit 40.4 % (37-47); Lymphocyte # 1.63 X10^3/ul (4.0); Lymphocyte % 22.3 % (19-41); Mean Corp Hgb Conc 32.2 g/dL (32-36); Mean Corpuscular Hgb 29.7 pg (27.0-32.0); Mean Corpuscular Volume 92.2 fL (81-99); Mean Platelet Vol. 11.8 fl (6.2-12.0); Monocyte# 0.38 X10^3/uL; Monocyte% 5.2 % (0-10); NRBC Flagged by Analyzer 0 % (0-5); Neutrophil # 4.96 X10^3/uL (2.7-7.7); Neutrophil % 67.7 % (47-70); Platelet Count 161 K/mm3 (150-450); RBC Distribution Width SD 46.5 fl (35.1-43.9); Red Blood Count 4.38 M/mm3 (4.2-5.4); White Blood Count 7.3 K/mm3 (4.4-11.0)
[2019-11-13 17:23] LABS: Anion Gap 8 (5-15); BUN 23 mg/dL (7-18); BUN/Creat Ratio 18.3 RATIO (10-20); Calcium,Total 9.7 mg/dL (8.5-10.1); Chloride 106 mmol/L (98-107); Creatinine, Serum 1.26 mg/dL (0.55-1.02); EST Glomerular Filtration Rate 44 mL/min (>60); Est Glom Filt Rate - Afr Amer 54 mL/min (>60); Glucose 52 mg/dL (74-106); Potassium 3.3 mmol/L (3.5-5.1); Sodium Level 143 mmol/L (136-145)
[2019-11-18 13:34] VITALS: BMI 34.9
[2019-12-12 07:03] LABS: Anion Gap 4 (5-15); BUN 25 mg/dL (7-18); BUN/Creat Ratio 18.8 RATIO (10-20); Calcium,Total 9.5 mg/dL (8.5-10.1); Chloride 106 mmol/L (98-107); Creatinine, Serum 1.33 mg/dL (0.55-1.02); EST Glomerular Filtration Rate 42 mL/min (>60); Est Glom Filt Rate - Afr Amer 50 mL/min (>60); Estimated Creatinine Clearance 28.43 ml/min; Glucose 206 mg/dL (74-106); Potassium 4.1 mmol/L (3.5-5.1); Sodium Level 140 mmol/L (136-145)
--- NOTE | 2019-12-17 10:11 | CL.IE_ITS ---
Patient: LADI CUELLO Study Date: 12/12/2019 Performing: Donte Felix MD : 1945 Age: 74 Gender: female PROCEDURES PERFORMED [id number] OF LOOP RECORDER INDICATIONS Syncope PROCEDURE DETAILS The patient was brought to the Catheterization Lab in the postabsorptive nonsedated state. Infor med consent was obtained prior to the procedure. Local anesthetic was given subcutaneously to the le ft upper chest area with Lidocaine 2%. Incision was made to the left upper chest. ICM Reveal LINQ was inserted into the pocket. Steri-strips applied to Lt chest area. The patient tolerated the procedur e well. Estimated Blood Loss: 0 ml's IMPLANTED / EX-PLANTED DEVICES IMPLANTED DEVICE(S): ICM Reveal LINQ - Orthodontic Band Maker: [employer], Model # [id number] Serial # [id number] DEVICE PARAMETERS CONCLUSIONS / RECOMMENDATIONS Device Conclusions: Successful implantation of a patient activated loop recorder. Device Recommendations: Follow up with Primary Care Physician PROCEDURE MEDICATIONS Versed 1 mg IV Antibiotic given in appropriate timeframe. Ancef 2 Gm IV @ 12/12/2019 08:10:37 Signed By Donte Felix MD On 12/17/2019 10:11:17 AM Donte Felix MD
== END 2019-12-12 09:45 | disposition home or self-care (01) ==
LOC: CLSP 06:41
PROVIDERS: PCP Family Medicine; Referring Provider Internal Medicine Cardiovascular Disease; Visit Provider Internal Medicine Cardiovascular Disease
DX: R55 Syncope and collapse (principal); I12.9 Hypertensive chronic kidney disease with stage 1 through stage 4 chronic kidney disease, or unspecified chronic kidney disease; E11.22 Type 2 diabetes mellitus with diabetic chronic kidney disease; N18.9 Chronic kidney disease, unspecified; E78.5 Hyperlipidemia, unspecified; E11.40 Type 2 diabetes mellitus with diabetic neuropathy, unspecified; K21.9 Gastro-esophageal reflux disease without esophagitis; M81.0 Age-related osteoporosis without current pathological fracture; M1A.9XX0 Chronic gout, unspecified, without tophus (tophi); Z79.82 Long term (current) use of aspirin; Z79.4 Long term (current) use of insulin; Z79.899 Other long term (current) drug therapy; Z86.73 Personal history of transient ischemic attack (TIA), and cerebral infarction without residual deficits
CPT/HCPCS: 33285; 36415; 80048; 85025; 99152; J7040

== ENCOUNTER → 2020-01-23 15:17 | Outpatient (CLI) | payer MEDICARE, MEDICAID, SELFPAY ==
[2019-11-18 13:34] VITALS: BMI 34.9
[2020-01-23 16:53] LABS: Anion Gap 8 (5-15); BUN 36 mg/dL (7-18); BUN/Creat Ratio 23.4 RATIO (10-20); Calcium,Total 9.3 mg/dL (8.5-10.1); Chloride 110 mmol/L (98-107); Creatinine, Serum 1.54 mg/dL (0.55-1.02); EST Glomerular Filtration Rate 35 mL/min (>60); Est Glom Filt Rate - Afr Amer 42 mL/min (>60); Glucose 72 mg/dL (74-106); Potassium 3.6 mmol/L (3.5-5.1); Sodium Level 143 mmol/L (136-145)
== END ==
PROVIDERS: PCP Family Medicine; Visit Provider Family Medicine
DX: E87.6 Hypokalemia (principal)
CPT/HCPCS: 36415; 80048

== ENCOUNTER → 2020-06-04 11:51 | Outpatient (CLI) | payer MEDICARE, MEDICAID, SELFPAY ==
[2019-11-18 13:34] VITALS: BMI 34.9
[2020-06-04 15:11] LABS: Absolute Lymphocyte Count 0.87 X10^3/uL (0.83-4.51); Absolute Neutrophil Count 3.1 X10^3/uL (2.0-7.7); Basophil# 0.02 X10^3/uL; Basophil% 0.4 % (0-1); Eosinophil# 0.16 X10^3/uL; Eosinophils% 3.6 % (0-5); Hematocrit 36.6 % (37-47); Hemoglobin 11.2 g/dL (12.0-15.0); Lymphocyte # 0.87 X10^3/ul (4.0); Lymphocyte % 19.6 % (19-41); Mean Corp Hgb Conc 30.6 g/dL (32-36); Mean Corpuscular Hgb 27.7 pg (27.0-32.0); Mean Corpuscular Volume 90.6 fL (81-99); Mean Platelet Vol. 13.7 fl (6.2-12.0); Monocyte# 0.25 X10^3/uL; Monocyte% 5.6 % (0-10); NRBC Flagged by Analyzer 0 % (0-5); Neutrophil # 3.14 X10^3/uL (2.7-7.7); Neutrophil % 70.6 % (47-70); Platelet Count 112 K/mm3 (150-450); RBC Distribution Width CV 15.6 % (11.6-14.6); RBC Distribution Width SD 51.4 fl (35.1-43.9); Red Blood Count 4.04 M/mm3 (4.2-5.4); White Blood Count 4.5 K/mm3 (4.4-11.0)
[2020-06-04 15:23] LABS: AST(SGOT) 39 U/L (15-37); Alanine Aminotransfer ALT/SGPT 36 U/L (13-56); Albumin, Serum 3.6 g/dL (3.2-5.0); Alkaline Phosphatase 112 U/L (45-117); Anion Gap 4 (5-15); BUN 23 mg/dL (7-18); BUN/Creat Ratio 19.2 RATIO (10-20); Calcium,Total 9.4 mg/dL (8.5-10.1); Chloride 106 mmol/L (98-107); EST Glomerular Filtration Rate 47 mL/min (>60); Est Glom Filt Rate - Afr Amer 57 mL/min (>60); Globulin 3.6 g/dL (2.2-4.2); Glucose 248 mg/dL (74-106); Potassium 4.2 mmol/L (3.5-5.1); Protein, Total 7.2 g/dL (6.4-8.2); Sodium Level 140 mmol/L (136-145)
[2020-06-04 15:28] LABS: Hemoglobin A1c 5.7 % (3.8-5.6)
== END ==
PROVIDERS: PCP Family Medicine; Visit Provider Family Medicine
DX: I12.9 Hypertensive chronic kidney disease with stage 1 through stage 4 chronic kidney disease, or unspecified chronic kidney disease (principal); N18.30 Chronic kidney disease, stage 3 unspecified; E11.22 Type 2 diabetes mellitus with diabetic chronic kidney disease
CPT/HCPCS: 36415; 80053; 83036; 85025

== ENCOUNTER → 2020-06-16 14:43 | Outpatient (CLI) | payer MEDICARE, MEDICAID, SELFPAY ==
[2020-06-16 13:52] VITALS: BMI 32.8
[2020-06-16 15:08] LABS: Hematocrit 35.8 % (37-47)
== END ==
PROVIDERS: PCP Family Medicine; Referring Provider Physician Assistant Medical; Visit Provider Physician Assistant Medical
DX: I10 Essential (primary) hypertension (principal)
CPT/HCPCS: 36415; 85014; 85018

== ENCOUNTER 2020-07-15 13:26 | Emergency (ER) | payer MEDICARE, MEDICAID, SELFPAY ==
[2020-06-16 13:52] VITALS: BMI 32.8
[2020-07-15 13:27] VITALS: BP 143/69; PULSE 70; RESP 18; TEMP 36.9; O2SAT 97; BMI 32.5
--- NOTE | 2020-07-15 13:53 | CT_ITS ---
STUDY: CT CERVICAL SPINE WITHOUT CONTRAST REASON FOR EXAM: Female, 74 years old. injury RADIATION DOSAGE (If Supplied By Facility): CTDIvol = ( 24.46 ) mGy, DLP = ( 503.18 ) mGycm TECHNIQUE: High resolution transaxial imaging was performed without contrast material. Sagittal and coronal images were reconstructed. Individualized dose optimization techniques were used for this CT. COMPARISON: None FINDINGS: Normal craniovertebral junction. There are degenerative changes of the anterior atlantoaxial articulation. Normal odontoid process. There is straightening of the normal cervical lordosis. Normal vertebral bodies and posterior osseous elements. C2-3: Normal endplates. Normal disc height and morphology. Normal central canal and intervertebral neuroforamina. C3-4: Mild bilateral facet hypertrophy. No spinal stenosis or neural foraminal stenosis. C4-5: Mild bilateral facet hypertrophy. 2 mm retrolisthesis of C4 on C5 with a mild broad disc osteophyte complex and bilateral vertebral hypertrophy produces mild spinal stenosis and the moderate right neural foraminal stenosis and mild left neural foraminal stenosis. C5-6: Mild bilateral facet hypertrophy. Mild broad disc osteophyte complex and bilateral vertebral hypertrophy produces mild spinal stenosis and mild bilateral neural foraminal stenosis. C6-7: Normal endplates. Normal disc height and morphology. Normal central canal and intervertebral neuroforamina. C7-T1: Normal endplates. Normal disc height and morphology. Normal central canal and intervertebral neuroforamina. Normal visualized soft tissue structures. CT/Spine Cervical without Contras IMPRESSION: 1. No acute fracture or subluxation. 2. Degenerative disc disease as described above. Electronically Signed: Oseas Conroy MD at 15:12 EST Tel , Service support ,
--- NOTE | 2020-07-15 13:53 | CT_ITS ---
STUDY: CT LUMBAR SPINE WITHOUT CONTRAST REASON FOR EXAM: Female, 74 years old. injury RADIATION DOSAGE (If Supplied By Facility): CTDIvol = ( 28.50 ) mGy, DLP = ( 771.09 ) mGycm TECHNIQUE: The patient was scanned in a multi detector CT scanner. High resolution transaxial imaging was performed. Images were obtained from T12 to S1. Sagittal and coronal images were reconstructed. Individualized dose optimization techniques were used for this CT. COMPARISON: None FINDINGS: Normal lumbar lordosis. Mild levoscoliosis centered at L2. Normal vertebrae of the lumbar spine. L1-2: Normal endplates. Normal disc height and morphology. Normal bilateral facet joints. Normal central canal and bilateral lateral recesses. Normal bilateral intervertebral neural foramina. L2-3: Mild bilateral facet hypertrophy and ligament flavum hypertrophy. 2 mm retrolisthesis of L2 on L3 with a mild bilobed disc protrusion produces mild spinal stenosis and mild bilateral neural foraminal stenosis. L3-4: Mild bilateral facet hypertrophy and moderate ligament flavum hypertrophy. 2 mm retrolisthesis of L3 on L4 with a mild broad disc protrusion produces moderate spinal stenosis and mild bilateral neural foraminal stenosis. L4-5: Status post posterior decompression. Bilateral pars defects of the L5 vertebra consistent with L4 spondylosis. 8 mm of anterolisthesis of L4 on L5 consistent with grade 1 spondylolisthesis. Mild broad disc protrusion with vacuum disc formation produces mild spinal stenosis, moderate right neural foraminal stenosis and mild left neural foraminal stenosis. L5-S1: Status post posterior decompression. Mild broad disc protrusion produces mild spinal stenosis and mild bilateral neural foraminal stenosis. Normal visualized paraspinous soft tissue structures. CT/Spine Lumbar without Contrast IMPRESSION: 1. No acute fracture or subluxation. 2. Mild levoscoliosis and degenerative disc disease as described above. 3. Status post posterior decompression at L4/L5 and L5/S1. 4. 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 Electronically Signed: Oseas Conroy MD at 15:08 EST Tel , Service support ,
--- NOTE | 2020-07-15 13:53 | RAD_ITS ---
STUDY: X-RAY - RIGHT SHOULDER REASON FOR EXAM: Female, 74 years old. injury TECHNIQUE: For view(s) of the shoulder. COMPARISON: None. FINDINGS: Normal glenohumeral articulation. There is hypertrophic osteoarthrosis of the acromioclavicular joint with inferior osseous spur formation. Suspect fracture of the acromion. CT may be useful. Normal humeral head and visualized proximal humerus. The soft tissue structures are unremarkable. Normal visualized pulmonary apex. RAD/Shoulder min 2 Views IMPRESSION: Suspect fracture the acromion. CT would be useful. Electronically Signed: Oseas Conroy MD at 15:14 EST Tel , Service support ,
--- NOTE | 2020-07-15 13:53 | CT_ITS ---
STUDY: CT BRAIN WITHOUT CONTRAST REASON FOR EXAM: Female, 74 years old. injury RADIATION DOSAGE (If Supplied By Facility): CTDIvol = ( 44.99 ) mGy, DLP = ( 779.24 ) mGycm TECHNIQUE: Transaxial CT imaging of the brain was performed without administration of intravenous contrast material. Individualized dose optimization techniques were used for this CT. COMPARISON: 11/19/2017 FINDINGS: Normal soft tissue structures. Normal calvarium. There is mild cerebral atrophy with widening of the extra-axial spaces and ventricular dilatation. There are areas of decreased attenuation within the white matter tracts of the supratentorial brain, consistent with microvascular disease changes. Chronic lacunar infarct of the right putamen. Normal brainstem. Normal cerebellum. There is no intracranial hemorrhage. There are no findings of an acute ischemic infarction. Normal visualized paranasal sinuses. CT/Brain/Head without Contrast IMPRESSION: Chronic involutional changes of the brain. Electronically Signed: Oseas Conroy MD at 14:40 EST Tel , Service support ,
--- NOTE | 2020-07-15 13:59 | ED.DCSUM_ITS ---
History of Present Illness Chief Complaint: Fall Informant: Patient, Family Onset: Weeks - 3-4 Narrative: Here with daughter present by private vehicle for head neck injury occurring 3 to 4 weeks ago. 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 Reports pain is been persistent no arm weakness or paresthesias. Reports worsening back pain since the fall. History of back surgeries in the past and states awaiting additional surgery at [facility]. She ambulates with a walker. She is right- hand dominant, injuries on the left side however reports pain in the right shoulder and right upper arm. Been using Tylenol. Has tolerated [place] and fentanyl in the past. No loss of bowel or bladder control. No urinary symptoms. No vomiting or diarrhea. Patient is on baby aspirin and Plavix therapy for history of multiple TIAs. Reports was seen at [facility] with her initial incident however no image studies were performed. Prior similar symptoms: Yes Past Medical History - Allergies and Home Meds Allergies/Adverse Reactions: Allergies duloxetine [From Cymbalta] Allergy (Verified 07/15/20 13:28) Unknown linagliptin [From Tradjenta] Allergy (Verified 07/15/20 13:28) Hives oxycodone [From OxyContin] Allergy (Verified 07/15/20 13:28) Rash Primary Care Physician: Марина Weir MD [Primary Care Provider] - Past Medical History: - - Hypertension, hyperlipidemia, TIAs, PE in the past, chronic kidney disease, chronic back pain. Surgical History: appendectomy, cataract - Bilateral., cholecystectomy, total knee arthroplasty - Bilateral., - - Tubal ligation, Lumbar surgery ?2 Smoking Status: Never smoker - Family History Maternal Family History: Family History (Last Reviewed 06/16/20 @ 14:29 by Lee Ann BERNABE, PA) Unknown Alcoholism Arthritis Asthma Depression Hypertension High cholesterol Kidney disease Severe allergy Diabetes Family History: Reports: Diabetes Paternal Family History: Family History (Last Reviewed 06/16/20 @ 14:29 by Lee Ann BERNABE, PA) Unknown Alcoholism Arthritis Asthma Depression Hypertension High cholesterol Kidney disease Severe allergy Diabetes Family History: Reports: Diabetes Review of Systems General: Denies: Chills, Fever, Sweats Eyes: Denies: Visual changes - bilaterally, Diplopia ENT: Denies: Rhinorrhea, Sore throat Cardiovascular: Denies: Chest pain, Palpitations Respiratory: Denies: Dyspnea, Cough, Dyspnea on exertion Gastrointestinal: Denies: Abdominal pain, Nausea, Vomiting, Diarrhea, Melena, Hematochezia Genitourinary: Denies: Dysuria, Hematuria, Frequency Musculoskeletal: Reports: Arthralgias, Neck pain, Back pain. Denies: Extremity Pain Skin: Denies: Rash, Wounds Neurological: Reports: Headache. Denies: Weakness, Numbness Physical Exam Vital Signs/Narrative: Vital Signs Temp Pulse Resp BP Pulse Ox 07/15/20 13:27 98.5 F 70 18 143/69 H 97 Inital Vital Signs reviewed: Yes General: Well nourished, Well developed, No Acute Distress, - - GCS 15. Head: Normocephalic, Atraumatic Eyes: Perrl, EOMI ENT: Moist mucous membranes, No rhinorrhea, TM's clear, - - No hemotympanum Neck: Supple, - - Paracervical tenderness in the lower region, no step-offs. Cardiovascular: Regular rate, Regular rhythm, No murmurs Respiratory: No distress, CTA bilaterally, Chest nontender Abdomen: Soft, Nontender, Nondistended, Normal bowel sounds Back: Normal Inspection, Spinal tenderness, - - Mid lumbar spinal tenderness with no step-offs. Extremities: No edema, - - No clavicular tenderness bilaterally. Left upper extremity full range of motion with nontender. Right upper extremity proximal shoulder mid humerus tenderness with no deformities. Skin intact. Neurovascular intact distally. Negative logroll bilateral lower extremities. Skin: Normal color, No rash Neurological: Alert, Oriented x3, Cranial nerves II-XII grossly intact, Normal Strength, Normal Sensation Psychological: Normal affect, Normal Mood Diagnostic/Tx/Re-eval Clinical Impression(s) from Imaging Studies Brain CT 07/15/20 13:53 IMPRESSION: Chronic involutional changes of the brain. Electronically Signed: Oseas Conroy MD at 14:40 EST Tel , Service support , Cervical Spine CT 07/15/20 13:53 IMPRESSION: 1. No acute fracture or subluxation. 2. Degenerative disc disease as described above. Electronically Signed: Oseas Conroy MD at 15:12 EST Tel , Service support , Lumbar Spine CT 07/15/20 13:53 IMPRESSION: 1. No acute fracture or subluxation. 2. Mild levoscoliosis and degenerative disc disease as described above. 3. Status post posterior decompression at L4/L5 and L5/S1. 4. 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 Electronically Signed: Oseas Conroy MD at 15:08 EST Tel , Service support , Shoulder X-Ray 07/15/20 13:53 IMPRESSION: Suspect fracture the acromion. CT would be useful. Electronically Signed: Oseas Conroy MD at 15:14 EST Tel , Service support , Humerus X-Ray 07/15/20 14:25 IMPRESSION: Normal x-ray examination of the humerus. Electronically Signed: Oseas Conroy MD at 15:12 EST Tel , Service support , Foot X-Ray 07/15/20 15:45 IMPRESSION: Normal x-ray examination of the foot. Electronically Signed: Oseas Conroy MD at 16:11 EST Tel , Service support , - Medical Decision Making Patient with mechanical fall 3 to 4 weeks ago complaining of neck and head pain with no image studies reported from her initial evaluation. She is on aspirin and Plavix. CT head neck lumbar spine obtained showed no intracranial process or any fractures or dislocations. She given fentanyl IM for symptom control. 2 view x-ray right humerus reviewed by myself and read by radiology shows no acute process. 2 view x-ray right shoulder reviewed by myself and read by radiology noting concern for possible acromial fracture recommended CT for further evaluation. In addition on reevaluation reported increasing left foot pain with ecchymosis in the region this was evaluated with noted ecchymosis at the distal metatarsal with no deformities. Skin is intact. Three-view x-ray of the foot obtain reviewed by myself and read by radiology shows no acute fracture or dislocation. 1634: Results of CT chest negative for acute process including negative for the suspected acromial fracture. Patient be discharged with outpatient follow-up. Patient has been able to ambulate with her walker per daughter and patient. ED Disposition - Plan for ED Patient: Disposition: Home or Assisted Living Diagnosis: Head injury, Neck muscle strain, Lumbar strain, Right shoulder strain, Contusion of left foot Instructions: ED Back Sprain/Strain, ED Foot Contusion, ED Head Injury (Adult) Prescriptions: Hydrocodone Bitart/Apap 5-325 [[place] 5MG-325MG] 1 tablet PO Q6H PRN PRN 3 Days #10 tablet PRN Reason: Pain Transmission Status: Received by [id number] Referrals: Марина Weir MD [Primary Care Provider] - 3-5 Days Additional Instructions: CT head, neck, chest, lumbar with no fracture or acute process. Initial concern for acromial fracture on shoulder x-ray negative on CT. Left foot x-ray negative. Follow-up with your doctor for reevaluation.
--- NOTE | 2020-07-15 14:25 | RAD_ITS ---
STUDY: X-RAY - RIGHT HUMERUS REASON FOR EXAM: Female, 74 years old. injury TECHNIQUE: 2 view(s) of the humerus. COMPARISON: None. FINDINGS: Normal visualized humerus. There is no demonstrated fracture or osseous destructive process. There is no demonstrated soft tissue abnormality. RAD/Humerus min 2 Views IMPRESSION: Normal x-ray examination of the humerus. Electronically Signed: Oseas Conroy MD at 15:12 EST Tel , Service support ,
[2020-07-15] MEDS: fentaNYL 100 MCG/2 ML Ampul 50 MCG IM (14:36)
[2020-07-15 15:06] LABS: Bedside Glucose 154 mg/dL (70-110)
--- NOTE | 2020-07-15 15:24 | CT_ITS ---
STUDY: CT CHEST WITHOUT CONTRAST REASON FOR EXAM: Female, 74 years old. injury -- suspect acromion fracture per rad RADIATION DOSAGE (If Supplied By Facility): CTDIvol = ( 18.23 ) mGy, DLP = ( 705.96 ) mGycm TECHNIQUE: Transaxial imaging was performed without the administration of intravenous contrast material. Individualized dose optimization techniques were used for this CT. 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 The lungs are normal. There is no demonstrated pleural abnormality. Normal heart and pericardium. There are calcifications of the coronary arteries. Normal mediastinum. Normal hilar regions. Normal unenhanced pulmonary arteries. Normal aorta arch and descending thoracic aorta. Normal osseous structures. There is no demonstrated abnormality of the visualized upper abdomen. CT/Chest without Contrast IMPRESSION: Normal unenhanced CT Chest examination. No right acromion fracture as suggested on radiographs. Electronically Signed: Oseas Conroy MD at 16:30 EST Tel , Service support ,
[2020-07-15 15:38] VITALS: BP 140/85; PULSE 64; RESP 15; O2SAT 96
--- NOTE | 2020-07-15 15:45 | RAD_ITS ---
STUDY: X-RAY - LEFT FOOT CLINICAL: Female, 74 years old. injury TECHNIQUE: 3 view(s) of the foot. COMPARISON: None. FINDINGS: Normal talus, calcaneus, and tarsal bones. Small plantar calcaneal enthesophyte. Normal visualized subtalar, talonavicular, calcaneocuboid, tarsal and tarsometatarsal articulations. Normal metatarsi. Normal metatarsophalangeal joint of the great toe. Normal tibial and fibular sesamoid bones. Normal interphalangeal joint of the great toe. Normal phalanges of the great toe. Normal second through fifth metatarsophalangeal joints. Normal interphalangeal joints and phalanges of the lesser toes. The soft tissue structures are unremarkable. RAD/Foot min 3 Views IMPRESSION: Normal x-ray examination of the foot. Electronically Signed: Oseas Conroy MD at 16:11 EST Tel , Service support ,
[2020-07-15] MEDS: HYDROcodone Bitartrate/Apap 5/325 Tablet PO (16:50)
[2020-07-15 17:04] VITALS: BP 138/72; PULSE 89; RESP 15; O2SAT 96
== END 2020-07-15 17:06 | disposition home or self-care (01) ==
PROVIDERS: Emergency Provider Emergency Medicine; PCP Family Medicine
DX: S09.90XA Unspecified injury of head, initial encounter (principal); S16.1XXA Strain of muscle, fascia and tendon at neck level, initial encounter; S39.012A Strain of muscle, fascia and tendon of lower back, initial encounter; S46.911A Strain of unspecified muscle, fascia and tendon at shoulder and upper arm level, right arm, initial encounter; S90.32XA Contusion of left foot, initial encounter; E78.5 Hyperlipidemia, unspecified; I12.9 Hypertensive chronic kidney disease with stage 1 through stage 4 chronic kidney disease, or unspecified chronic kidney disease; N18.9 Chronic kidney disease, unspecified; Z90.49 Acquired absence of other specified parts of digestive tract; Z86.73 Personal history of transient ischemic attack (TIA), and cerebral infarction without residual deficits; Z86.711 Personal history of pulmonary embolism; Z79.82 Long term (current) use of aspirin; Z79.02 Long term (current) use of antithrombotics/antiplatelets; W19.XXXA Unspecified fall, initial encounter
CPT/HCPCS: 70450; 71250; 72125; 72131; 73030; 73060; 73630; 82962; 96372; 99284

== ENCOUNTER 2020-10-10 15:23 | Emergency (ER) | payer MEDICARE, MEDICAID, SELFPAY ==
[2020-10-10 15:24] VITALS: BP 160/68; PULSE 72; RESP 18; TEMP 36.4; O2SAT 97; BMI 32.5
--- NOTE | 2020-10-10 15:45 | EX.ED.DYSGE1 ---
HPI History of Present Illness Chief Complaint: Headache Informant: patient and family Onset/Context/Timing Onset: Today Context: Gradual Onset Timing: Continuous Current Severity: Mild Maximum Severity: Mild Narrative Narrative: 75-year-old diabetic female with hypertension, renal insufficiency and prior stroke. She was concerned because she had pain on both sides of her neck and upper back and her blood pressure was elevated around 167/97 and she was concerned about as to her home health aide who wanted to come in to be evaluated. She denies any strokelike symptoms. She is on Plavix and aspirin. Denies any head trauma. She describes as a headache but when you actually speak to her more about its musculoskeletal neck and upper back pain. She denies any nausea, vomiting or diarrhea. She denies any fever or chills. She states Tylenol has had no relief. Prior similar symptoms: Yes Recent Illness/Hospitalization: No [facility] Medical History (Updated 10/10/20 @ 15:[address] Austin Bull MD) Adnexal mass Arthritis Back problem Carpal tunnel syndrome Cataracts, bilateral Chronic kidney disease Controlled type 2 diabetes mellitus with insulin therapy Essential (primary) hypertension GERD (gastroesophageal reflux disease) Goiter Gout History of pulmonary embolus (PE) (12/2017) Hyperlipemia IBS (irritable bowel syndrome) Neuropathy Osteoarthritis of right knee Osteoporosis Seasonal allergies Stroke Syncope Thyroid goiter Thyroid nodule Home Medications cholecalciferol (vitamin D3) 5,000 unit PO DAILY 02/21/17 [History Last Taken 10/29/17] allopurinol 100 mg tablet 1 tab PO BID tab 08/15/17 [History Last Taken 10/29/17] ferrous sulfate 325 mg PO DAILY 12/13/17 [History Last Taken Unknown] aspirin 81 mg PO BIDCM 01/02/18 [History Last Taken Unknown] insulin lispro 7 unit SC TIDAC insuln.pen 01/09/18 [Rx Last Taken Unknown] clopidogrel 75 mg tablet 75 mg PO DAILY 06/16/20 [History Last Taken Unknown] lisinopril 10 mg tablet 10 mg PO DAILY 06/16/20 [History Last Taken Unknown] sertraline 50 mg tablet 50 mg PO DAILY 06/16/20 [History Last Taken Unknown] atorvastatin 40 mg PO QHS 07/15/20 [History Last Taken Unknown] famotidine 40 mg PO BID 07/15/20 [History Last Taken Unknown] pregabalin 300 mg PO BID 07/15/20 [History Last Taken Unknown] teriparatide 20 mcg SC DAILY 07/15/20 [History Last Taken Unknown] Allergy/AdvReac Type Severity Reaction Status Date / Time duloxetine [From Cymbalta] Allergy Unknown Verified 10/10/20 15:24 linagliptin [From Tradjenta] Allergy Hives Verified 10/10/20 15:24 oxycodone [From OxyContin] Allergy Rash Verified 10/10/20 15:24 Family History Unknown Alcoholism Arthritis Asthma Depression Hypertension High cholesterol Kidney disease Severe allergy Diabetes Surgical History H/O tubal ligation History of back surgery History of carpal tunnel release History of cataract surgery History of knee replacement History of loop recorder (12/12/19) History of robot-assisted laparoscopic hysterectomy (10/02/19) History of salpingo-oophorectomy (10/02/19) Hx of appendectomy Hx of cholecystectomy Social History Smoking Status: Never smoker second hand exposure: No alcohol intake: never substance use type: does not use ROS ROS ED ROS Narrative Patient denies any recent illness. Review of Systems ROS Unobtainable: Denies due to encephalopathy Constitutional Constitutional ED: Denies fever(s) Eyes Eyes: Denies change in vision ENT ENT ED: Denies ear pain or sore throat Cardiovascular Cardiovascular: Denies chest pain Respiratory/Chest Respiratory/Chest: Denies cough or dyspnea Gastrointestinal Gastrointestinal: Denies abdominal pain, diarrhea, nausea or vomiting Genitourinary Genitourinary ED: Denies dysuria Musculoskeletal Musculoskeletal: Reports back pain, myalgias and neck pain Integumentary Denies rash Neurologic Neurologic: Denies headache(s) Psychiatric Psychiatric: Denies depression Endocrine Endocrinology: Denies polyuria Allergic/Immunologic Allergic/Immunologic ED: Denies urticaria EXAM Physical Exam Narrative Exam Narrative: Well-appearing older female. Vital signs are stable and afebrile. Current blood pressure 160/68. She is in no distress. Family at bedside. Exam unremarkable except reproducible tenderness on the paracervical musculature primarily on the base and upper back. No cervical lymphadenopathy. Lungs are clear. Heart regular rate and rhythm neuro exam normal. Const Vital Signs: 10/10/20 15:24 Temperature 97.5 F L Temperature Source Temporal Pulse Rate 72 Respiratory Rate 18 Blood Pressure 160/68 H Blood Pressure Mean 98 Pulse Ox 97 Oxygen Delivery Method Room Air HEENT Reports moist mucous membranes Negative for trauma or tenderness Eyes PERRL and EOMs intact bilaterally Neck no lymphadenopathy, supple and no JVD General: tenderness Chest Wall inspection of chest normal Resp normal respiratory effort and clear to auscultation bilaterally Cardio regular rate, regular rhythm and no murmurs GI normal to inspection, nondistended, normoactive bowel sounds, non-tender and non-distended Auscultation: normoactive bowel sounds Palpation: soft Back/Spine no CVA tenderness Cervical Spine: Negative for cervical spine tenderness Thoracic Spine / Upper Back: paraspinal muscle tenderness; Negative for thoracic spinal tenderness Extremity normal to inspection General Extremety ED: Negative for edema or tenderness General Extremity: Negative for edema Neuro oriented x3 and CN's II-XII intact bilaterally Sensorium / Orientation: alert Motor Exam: strength 5/5 throughout Psych mental status grossly normal Skin no rashes or lesions noted MDM MDM MDM Narrative Medical decision making narrative: History and exam are consistent with musculoskeletal neck and back pain. Discussed with patient and daughter. Labs and imaging would be of no value. Of note she did have a CT of her brain done around 3 months ago which was unremarkable. Patient be given an IM injection of morphine and p.o. Zofran and discharged home. Discharge Plan Triage Chief Complaint: Headache ED Provider: Austin Bull Dx/Rx/DC Orders Clinical Impression: Acute neck pain Instructions: ED Neck Pain Prescriptions: No Action allopurinol 100 mg tablet 1 tab PO BID RF: 0 lisinopril 10 mg tablet 10 mg PO DAILY RF: 0 clopidogrel 75 mg tablet 75 mg PO DAILY RF: 0 sertraline 50 mg tablet 50 mg PO DAILY RF: 0 cholecalciferol (vitamin D3) 1,000 UNIT tablet 5,000 unit PO DAILY RF: 0 ferrous sulfate 325 MG tablet 325 mg PO DAILY RF: 0 aspirin 81 MG tablet,chewable 81 mg PO BIDCM RF: 0 insulin lispro 100 UNIT/ML insulin pen 7 unit SC TIDAC RF: 0 atorvastatin 40 MG tablet 40 mg PO QHS RF: 0 famotidine 40 MG tablet 40 mg PO BID RF: 0 pregabalin 300 MG capsule 300 mg PO BID RF: 0 teriparatide 20 MCG/DOSE pen injector 20 mcg SC DAILY RF: 0 Primary Care Provider: Марина Weir Referrals: Марина Weir MD [Primary Care Provider] - 1 Week if not improving Activity Restrictions/Additional Instructions: This is musculoskeletal neck and back pain. Hot shower and warm bath to relax the muscles. Massage. Tylenol for pain. Limited Motrin no more than 2 twice a day for the next 3 to 5 days. This should progressively improve. Watch your blood pressure and your blood sugars also. Disposition Disposition: Home, self care
[2020-10-10] MEDS: morphine 10 MG/ML Syringe IM (16:00)
[2020-10-10] MEDS: Ondansetron ODT 4 MG Tablet PO (16:01)
[2020-10-10 16:39] VITALS: BP 180/67
== END 2020-10-10 16:39 | disposition home or self-care (01) ==
PROVIDERS: Emergency Provider Emergency Medicine; PCP Family Medicine
DX: M54.2 Cervicalgia (principal); Z86.73 Personal history of transient ischemic attack (TIA), and cerebral infarction without residual deficits; Z86.711 Personal history of pulmonary embolism
CPT/HCPCS: 96372; 99282

== ENCOUNTER 2020-12-17 14:08 | Emergency (ER) | payer MEDICARE, MEDICAID, SELFPAY ==
[2020-12-17 14:09] VITALS: BP 162/66; PULSE 71; RESP 18; TEMP 36.5; O2SAT 98; BMI 33.9
--- NOTE | 2020-12-17 14:20 | CT_ITS ---
STUDY: CT BRAIN WITHOUT CONTRAST REASON FOR EXAM: Female, 75 years old. injury RADIATION DOSAGE (If Supplied By Facility): CTDIvol = ( 38.43 ) mGy, DLP = ( 669.46 ) mGycm TECHNIQUE: Transaxial CT imaging of the brain was performed without administration of intravenous contrast material. Individualized dose optimization techniques were used for this CT. COMPARISON: 07/15/2020 FINDINGS: Normal soft tissue structures. Normal calvarium. There is mild cerebral atrophy with widening of the extra-axial spaces and ventricular dilatation. There are areas of decreased attenuation within the white matter tracts of the supratentorial brain, consistent with microvascular disease changes. Chronic lacunar infarct of the right putamen. Normal brainstem. Normal cerebellum. There is no intracranial hemorrhage. There are no findings of an acute ischemic infarction. Normal visualized paranasal sinuses. CT/Brain/Head without Contrast IMPRESSION: Chronic involutional changes of the brain. Electronically Signed: Oseas Conroy MD at 15:07 EDT Tel , Service support ,
--- NOTE | 2020-12-17 14:20 | CT_ITS ---
STUDY: CT CERVICAL SPINE WITHOUT CONTRAST REASON FOR EXAM: Female, 75 years old. injury RADIATION DOSAGE (If Supplied By Facility): CTDIvol = ( 22.50 ) mGy, DLP = ( 407.43 ) mGycm TECHNIQUE: High resolution transaxial imaging was performed without contrast material. Sagittal and coronal images were reconstructed. Individualized dose optimization techniques were used for this CT. COMPARISON: None FINDINGS: Normal craniovertebral junction. Normal anterior atlantoaxial articulation. Normal odontoid process. Normal cervical lordosis. Normal vertebral bodies and posterior osseous elements. C2-3: Normal endplates. Normal disc height and morphology. Normal central canal and intervertebral neuroforamina. C3-4: Normal endplates. Normal disc height and morphology. Normal central canal and intervertebral neuroforamina. C4-5: Mild right facet hypertrophy. Mild broad disc osteophyte complex and bilateral due to hypertrophy produces mild spinal stenosis and mild bilateral neural foraminal stenosis. C5-6: Mild right facet hypertrophy. Mild broad disc osteophyte complex and bilateral computer hypertrophy produces mild spinal stenosis and mild bilateral neural foraminal stenosis. C6-7: Normal endplates. Normal disc height and morphology. Normal central canal and intervertebral neuroforamina. C7-T1: Normal endplates. Normal disc height and morphology. Normal central canal and intervertebral neuroforamina. Normal visualized soft tissue structures. CT/Spine Cervical without Contras IMPRESSION: No acute fracture or subluxation. Electronically Signed: Oseas Conroy MD at 15:12 EDT Tel , Service support ,
--- NOTE | 2020-12-17 14:21 | EDS_ITS ---
HPI History of Present Illness Chief Complaint: Head Injury Informant: patient Onset/Context/Timing Onset: Weeks (1 week ago) Current Severity: Moderate Maximum Severity: Moderate Narrative Narrative: Patient presents secondary to headache following 2 head injuries a week ago. Patient states the first injury occurred when she sat down in a chair on her front porch. When she leaned back she struck her head against a flower box. She was then bending over to pick something up in her bedroom and hit the corner of her head against a dresser. No loss of consciousness. She is had persistent headache since that time. She was seen by her PCP today and advised to come in for imaging. She is on aspirin and Plavix. [facility] Medical History (Updated 12/17/20 @ 15:[address] Gina Duenas MD) Adnexal mass Arthritis Back problem Carpal tunnel syndrome Cataracts, bilateral Chronic kidney disease Controlled type 2 diabetes mellitus with insulin therapy Essential (primary) hypertension GERD (gastroesophageal reflux disease) Goiter Gout History of pulmonary embolus (PE) (12/2017) Hyperlipemia IBS (irritable bowel syndrome) Neuropathy Osteoarthritis of right knee Osteoporosis Seasonal allergies Stroke Syncope Thyroid goiter Thyroid nodule Home Medications cholecalciferol (vitamin D3) 5,000 unit PO DAILY 02/21/17 [History Last Taken 10/29/17] allopurinol 100 mg tablet 1 tab PO BID tab 08/15/17 [History Last Taken 10/29/17] ferrous sulfate 325 mg PO DAILY 12/13/17 [History Last Taken Unknown] aspirin 81 mg PO BIDCM 01/02/18 [History Last Taken Unknown] insulin lispro 7 unit SC TIDAC insuln.pen 01/09/18 [Rx Last Taken Unknown] clopidogrel 75 mg tablet 75 mg PO DAILY 06/16/20 [History Last Taken Unknown] lisinopril 10 mg tablet 10 mg PO DAILY 06/16/20 [History Last Taken Unknown] sertraline 50 mg tablet 50 mg PO DAILY 06/16/20 [History Last Taken Unknown] atorvastatin 40 mg PO QHS 07/15/20 [History Last Taken Unknown] famotidine 40 mg PO BID 07/15/20 [History Last Taken Unknown] pregabalin 300 mg PO BID 07/15/20 [History Last Taken Unknown] teriparatide 20 mcg SC DAILY 07/15/20 [History Last Taken Unknown] Allergy/AdvReac Type Severity Reaction Status Date / Time duloxetine [From Cymbalta] Allergy Unknown Verified 12/17/20 14:08 linagliptin [From Tradjenta] Allergy Hives Verified 12/17/20 14:08 oxycodone [From OxyContin] Allergy Rash Verified 12/17/20 14:08 Family History Unknown Alcoholism Arthritis Asthma Depression Hypertension High cholesterol Kidney disease Severe allergy Diabetes Surgical History H/O tubal ligation History of back surgery History of carpal tunnel release History of cataract surgery History of knee replacement History of loop recorder (12/12/19) History of robot-assisted laparoscopic hysterectomy (10/02/19) History of salpingo-oophorectomy (10/02/19) Hx of appendectomy Hx of cholecystectomy Social History Smoking Status: Never smoker second hand exposure: No alcohol intake: never substance use type: does not use ROS ROS ED Constitutional Constitutional ED: Denies chills or fever(s) Eyes Eyes: Reports other Details: Light sensitivity ; Denies change in vision ENT ENT ED: Denies sore throat Cardiovascular Cardiovascular: Denies chest pain Respiratory/Chest Respiratory/Chest: Denies cough or dyspnea Gastrointestinal Gastrointestinal: Denies abdominal pain, diarrhea, nausea or vomiting Genitourinary Genitourinary ED: Denies dysuria Musculoskeletal Musculoskeletal: Denies back pain Integumentary Denies rash Neurologic Neurologic: Reports headache(s); Denies paresthesias or weakness Psychiatric Psychiatric: Denies anxiety or depression Allergic/Immunologic Allergic/Immunologic ED: Denies urticaria EXAM Physical Exam Const Vital Signs: 12/17/20 14:09 12/17/20 15:09 Temperature 97.7 F L Temperature Source Temporal Pulse Rate 71 Respiratory Rate 18 Respiratory Effort Normal Non-Labored Respiratory Depth Normal Respiratory Pattern Normal Blood Pressure 162/66 H Blood Pressure Mean 98 Pulse Ox 98 Oxygen Delivery Method Room Air Room Air Positive well nourished and well developed General Appearance ED: well developed HEENT Reports normocephalic and head/scalp atraumatic atraumatic Eyes PERRL and EOMs intact bilaterally Neck supple Neck Narrative: Mild upper C-spine tenderness. Chest Wall inspection of chest normal and palpation of chest normal Resp normal respiratory effort and clear to auscultation bilaterally Cardio regular rate and regular rhythm GI normal to inspection, nondistended, normoactive bowel sounds Palpation: soft Back/Spine no CVA tenderness Extremity normal to inspection Neuro oriented x3 and no sensory deficits noted Sensorium / Orientation: alert Motor Exam: strength 5/5 throughout Psych mental status grossly normal Skin Skin Narrative: Old appearing ecchymoses noted on the bilateral lower extremities. MDM MDM MDM Narrative Medical decision making narrative: CT scan of the head and C-spine are obtained. Radiography Diagnostic Testing: Radiology Impression Brain CT 12/17/20 14:20 IMPRESSION: Chronic involutional changes of the brain. Electronically Signed: Oseas Conroy MD at 15:07 EDT Tel , Service support , Cervical Spine CT 12/17/20 14:20 IMPRESSION: No acute fracture or subluxation. Electronically Signed: Oseas Conroy MD at 15:12 EDT Tel , Service support , Treatment and Re-Evaluation Comments:: Test results discussed with patient and granddaughter at bedside. No evidence of significant intracranial injury. We did discuss concussions and that headaches can persist for 6 weeks. Because patient is already on aspirin and Plavix I am reluctant to start her on regular ibuprofen. She will take Tylenol every 6 hours for headache. She will be given a dose today before she leaves. Discharge Plan Triage Chief Complaint: Head Injury ED Provider: Gina Duenas Dx/Rx/DC Orders Clinical Impression: Closed head injury, Concussion Instructions: ED Concussion Prescriptions: No Action allopurinol 100 mg tablet 1 tab PO BID RF: 0 lisinopril 10 mg tablet 10 mg PO DAILY RF: 0 clopidogrel 75 mg tablet 75 mg PO DAILY RF: 0 sertraline 50 mg tablet 50 mg PO DAILY RF: 0 cholecalciferol (vitamin D3) 1,000 UNIT tablet 5,000 unit PO DAILY RF: 0 ferrous sulfate 325 MG tablet 325 mg PO DAILY RF: 0 aspirin 81 MG tablet,chewable 81 mg PO BIDCM RF: 0 insulin lispro 100 UNIT/ML insulin pen 7 unit SC TIDAC RF: 0 atorvastatin 40 MG tablet 40 mg PO QHS RF: 0 famotidine 40 MG tablet 40 mg PO BID RF: 0 pregabalin 300 MG capsule 300 mg PO BID RF: 0 teriparatide 20 MCG/DOSE pen injector 20 mcg SC DAILY RF: 0 Primary Care Provider: Марина Weir Referrals: Марина Weir MD [Primary Care Provider] - 1 Week if not improving Disposition Disposition: Home, Self Care
[2020-12-17] MEDS: Acetaminophen 500 MG Tablet 1000 MG PO (15:39)
[2020-12-17 15:42] VITALS: BP 154/52; PULSE 64; RESP 14; O2SAT 97
== END 2020-12-17 15:49 | disposition home or self-care (01) ==
PROVIDERS: Emergency Provider Emergency Medicine; PCP Family Medicine
DX: S06.0X0A Concussion without loss of consciousness, initial encounter (principal); W22.8XXA Striking against or struck by other objects, initial encounter; Y93.89 Activity, other specified; Y92.003 Bedroom of unspecified non-institutional (private) residence as the place of occurrence of the external cause; Y99.9 Unspecified external cause status; I12.9 Hypertensive chronic kidney disease with stage 1 through stage 4 chronic kidney disease, or unspecified chronic kidney disease; N18.9 Chronic kidney disease, unspecified; E11.22 Type 2 diabetes mellitus with diabetic chronic kidney disease; E11.40 Type 2 diabetes mellitus with diabetic neuropathy, unspecified; K21.9 Gastro-esophageal reflux disease without esophagitis; E78.5 Hyperlipidemia, unspecified; M81.0 Age-related osteoporosis without current pathological fracture; M10.9 Gout, unspecified; M17.11 Unilateral primary osteoarthritis, right knee; Z79.4 Long term (current) use of insulin; Z79.82 Long term (current) use of aspirin; Z79.02 Long term (current) use of antithrombotics/antiplatelets; Z79.899 Other long term (current) drug therapy; Z86.711 Personal history of pulmonary embolism; Z86.73 Personal history of transient ischemic attack (TIA), and cerebral infarction without residual deficits
CPT/HCPCS: 70450; 72125; 99283; J7030

== ENCOUNTER 2021-03-18 12:37 | Emergency (ER) | payer MEDICARE, MEDICAID, SELFPAY ==
[2021-03-18 12:38] VITALS: BP 151/52; PULSE 69; RESP 13; TEMP 36.4; O2SAT 100; BMI 33.0
--- NOTE | 2021-03-18 13:05 | RAD_ITS ---
STUDY: X-RAY - PELVIS AND LEFT HIP REASON FOR EXAM: Left hip pain, left hip injury. TECHNIQUE: 2 views of the pelvis and hip. COMPARISON: None. FINDINGS: There is vascular calcification. There are postoperative changes of the lumbar spine. Normal bilateral iliac wings, sacroiliac joints and visualized sacrum. There is a bone island in the left upper ilium. Normal bilateral superior and inferior pubic rami. There are degenerative changes of the pubic symphysis. Normal bilateral ischial tuberosities. Normal visualized femoral head. Normal acetabulum. Normal hip joint. RAD/HIP, UNI W/ Pelvis 2-3 Views IMPRESSION: No demonstrated left hip fracture. Electronically Signed: Joe Hernandez MD at 13:44 EST Tel , Service support ,
--- NOTE | 2021-03-18 14:34 | CT_ITS ---
STUDY: CT LUMBAR SPINE WITHOUT CONTRAST REASON FOR EXAM: Female, 75 years old. Back pain RADIATION DOSAGE (If Supplied By Facility): CTDIvol = ( 30.76 ) mGy, DLP = ( 1093.89 ) mGycm TECHNIQUE: The patient was scanned in a multi detector CT scanner. High resolution transaxial imaging was performed. Images were obtained from T11 to sacrum. Sagittal and coronal images were reconstructed. Individualized dose optimization techniques were used for this CT. COMPARISON: 07/15/2020 FINDINGS: There is a grade 2 anterior spondylolisthesis of L2 4 on L5. There is a levoscoliosis of the lumbar spine. There are stable sclerotic foci within the T12 and L1 vertebral bodies There is multilevel disc space narrowing and facet hypertrophy. L1-2: There is endplate spondylosis. Normal central canal and bilateral lateral recesses. Normal bilateral intervertebral neural foramina. L2-3: There is a posterior disc osteophyte associated with narrowing of the right neural foramina. L3-4: There is a posterior disc osteophyte and facet hypertrophy associated with stenosis of the central canal and bilateral narrowing of the intervertebral neural foramina. L4-5: There are postsurgical changes of the posterior elements. There is a posterior disc osteophyte and facet hypertrophy associated with narrowing of the intervertebral neural foramina. L5-S1: There are postsurgical changes of the posterior elements. There is a posterior disc osteophyte and facet hypertrophy associated with bilateral narrowing of the intervertebral neural foramina. There are peripheral calcifications of the abdominal aorta. CT/Spine Lumbar without Contrast IMPRESSION: Multilevel degenerative changes, as described above. Grade 2 anterior spondylolisthesis of L4 on L5. Atherosclerosis. Electronically Signed: Verenice Maldonado MD at 15:45 EST Tel , Service support ,
--- NOTE | 2021-03-18 14:34 | CT_ITS ---
STUDY: CT LEFT HIP SPINE WITHOUT CONTRAST REASON FOR EXAM: Female, 75 years old. Back and hip pain RADIATION DOSAGE (If Supplied By Facility): CTDIvol = ( 30.76 ) mGy, DLP = ( 1093.89 ) mGycm TECHNIQUE: The patient was scanned in a multi detector CT scanner. High resolution transaxial imaging was performed. Sagittal and coronal images were reconstructed. Individualized dose optimization techniques were used for this CT. COMPARISON: None FINDINGS: There are degenerative changes of the visualized lumbar spine. There are degenerative changes of the left sacroiliac joint, pubic symphysis and left hip. There are vascular calcifications. No pathologically enlarged lymph nodes nor masses are seen visualized. CT/Extremity Lower without Contra IMPRESSION: Degenerative changes. Atherosclerosis. Electronically Signed: Verenice Maldonado MD at 15:58 EST Tel , Service support ,
--- NOTE | 2021-03-18 14:45 | ED.VIS.LOWEX ---
HPI History of Present Illness Chief Complaint: Lower Extremity Injury Narrative Narrative: Patient presenting for evaluation secondary to unrelenting back and left hip pain. Patient reports that about a month ago her daughter waxed her floors, and the patient suffered #4 falls on the floor. She reports that she hit her lower back and left hip. Patient typically ambulates with a walker. She deals with chronic low back pain, actually reports that she was supposed to have surgical intervention secondary to chronic bulging disks in her L4-L5 region. Patient states that since the falls however she has been having increased pain in the area. Is located in her lower back on the left-hand side and in the left hip. She reports it radiates somewhat down to around the level of the left thigh. She denies any numbness or weakness. She denies any bowel or bladder incontinence. She denies any fevers chills night sweats or unintended weight loss. Patient does report that the pain is worse with bearing weight, she is able to ambulate with the assistance of a walker. Patient states that she is only able to take Tylenol for pain control as she is on anticoagulants. Review of systems otherwise negative. 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) Stroke Syncope Thyroid goiter Thyroid nodule Home Medications cholecalciferol (vitamin D3) 5,000 unit PO DAILY 02/21/17 [History Last Taken 10/29/17] allopurinol 100 mg tablet 1 tab PO BID tab 08/15/17 [History Last Taken 10/29/17] ferrous sulfate 325 mg PO DAILY 12/13/17 [History Last Taken Unknown] aspirin 81 mg PO BIDCM 01/02/18 [History Last Taken Unknown] insulin lispro 7 unit SC TIDAC insuln.pen 01/09/18 [Rx Last Taken Unknown] clopidogrel 75 mg tablet 75 mg PO DAILY 06/16/20 [History Last Taken Unknown] lisinopril 10 mg tablet 10 mg PO DAILY 06/16/20 [History Last Taken Unknown] sertraline 50 mg tablet 50 mg PO DAILY 06/16/20 [History Last Taken Unknown] atorvastatin 40 mg PO QHS 07/15/20 [History Last Taken Unknown] famotidine 40 mg PO BID 07/15/20 [History Last Taken Unknown] pregabalin 300 mg capsule 300 mg PO BID 03/02/21 [History Last Taken Unknown] hydrocodone-acetaminophen 1 tab PO Q6H PRN PRN 3 Days #12 tablet 03/18/21 [Rx Last Taken Unknown] Allergy/AdvReac Type Severity Reaction Status Date / Time duloxetine [From Cymbalta] Allergy Unknown Verified 03/18/21 12:40 linagliptin [From Tradjenta] Allergy Hives Verified 03/18/21 12:40 oxycodone [From OxyContin] Allergy Rash Verified 03/18/21 12:40 Family History Unknown Alcoholism Arthritis Asthma Depression Hypertension High cholesterol Kidney disease Severe allergy Diabetes Surgical History H/O tubal ligation History of back surgery History of carpal tunnel release History of cataract surgery History of knee replacement History of loop recorder (12/12/19) History of robot-assisted laparoscopic hysterectomy (10/02/19) History of salpingo-oophorectomy (10/02/19) Hx of appendectomy Hx of cholecystectomy Social History Smoking Status: Never smoker second hand exposure: No alcohol intake: never substance use type: does not use ROS ROS ED Constitutional Constitutional ED: Denies chills or fever(s) ENT ENT ED: Denies rhinorrhea Cardiovascular Cardiovascular: Denies chest pain Respiratory/Chest Respiratory/Chest: Denies cough or dyspnea Gastrointestinal Gastrointestinal: Denies abdominal pain, diarrhea, nausea or vomiting Genitourinary Genitourinary ED: Denies dysuria or hematuria Musculoskeletal Musculoskeletal: Reports back pain and other Details: Left hip pain Integumentary Denies rash Neurologic Neurologic: Denies paresthesias or weakness Psychiatric Psychiatric: Denies depression Endocrine Endocrinology: Denies fatigue Allergic/Immunologic Allergic/Immunologic ED: Denies urticaria EXAM Physical Exam Const Vital Signs: 03/18/21 12:38 Temperature 97.5 F L Temperature Source Temporal Pulse Rate 69 Respiratory Rate 13 Blood Pressure 151/52 H Blood Pressure Mean 85 Pulse Ox 100 Oxygen Delivery Method Room Air Positive well nourished and well developed General Appearance ED: well developed and NAD HEENT Reports normocephalic and head/scalp atraumatic Eyes EOMs intact bilaterally Neck supple Resp normal respiratory effort and clear to auscultation bilaterally Cardio regular rate, regular rhythm and no murmurs Bruits: other Other Details: 2+ Radial Pulses 2+ DP Pulses 2+ PT Pulses Peripheral Pulses: radial pulses present, posterior tibial pulses present and dorsalis pedis pulses present GI normal to inspection, nondistended, normoactive bowel sounds, soft to palpation and non-tender Palpation: Negative for pulsatile mass Back/Spine normal to inspection Back/Spine Narrative: Left-sided paraspinal tenderness in the lumbar spine Thoracic Spine / Upper Back: Negative for thoracic spinal tenderness Lumbar Spine / Lower Back: straight leg raise negative bilaterally; Negative for lumbar spinal tenderness Extremity normal to inspection Extremity Narrative: Pain with axial loading of the left hip, no pain with range of motion. No signs of deformity. Neuro oriented x3 and no sensory deficits noted Neuro Narrative: Motor: Hip flexion Knee flexion Knee extension Dorsiflexion Plantar Flexion Extensor Hallicus longus Sensorium / Orientation: alert Sensory Exam: other Motor Exam: strength 5/5 throughout Psych mental status grossly normal Skin no rashes or lesions noted Trauma: other No petechiae MDM MDM MDM Narrative Medical decision making narrative: Patient presented secondary to hip and back pain. I reviewed patient's records she has tolerated Shelby in the past she was given a dose of that in the emergency department. Hip x-ray by my personal review as well as radiology does not demonstrate any evidence of fracture. Patient has had these pains over the course of a month, I wanted to make sure that the patient was not dealing with an occult fracture so CT imaging of the hip was obtained, as well as imaging of the lower back. Hip CT shows no signs of fracture, CT of the low back shows spondylolisthesis L4 on L5 which the patient is aware of and has a history of in the past. Patient had improvement of her pain on repeat evaluation. I believe she can be discharged with short course of Shelby and follow-up as an outpatient. Patient was discharged in stable condition. Radiography Diagnostic Testing: Clinical Impression(s) from Imaging Studies Hip/Pelvis X-Ray 03/18/21 13:05 IMPRESSION: No demonstrated left hip fracture. Electronically Signed: Joe Hernandez MD at 13:44 EST Tel , Service support , Lower Extremity CT 03/18/21 14:34 IMPRESSION: Degenerative changes. Atherosclerosis. Electronically Signed: Verenice Maldonado MD at 15:58 EST Tel , Service support , Lumbar Spine CT 03/18/21 14:34 IMPRESSION: Multilevel degenerative changes, as described above. Grade 2 anterior spondylolisthesis of L4 on L5. Atherosclerosis. Electronically Signed: Verenice Maldonado MD at 15:45 EST Tel , Service support , Discharge Plan Triage Chief Complaint: Lower Extremity Injury ED Provider: Saurav Juarez Dx/Rx/DC Orders Clinical Impression: Spondylolisthesis, lumbar region, Acute pain of left hip Instructions: ED Back Pain (Acute or Chronic), ED Hip Strain Prescriptions: New hydrocodone-acetaminophen 5-325 mg tablet 1 tab PO Q6H PRN PRN (Reason: Pain) 3 Days Qty: 12 RF: 0 No Action allopurinol 100 mg tablet 1 tab PO BID RF: 0 lisinopril 10 mg tablet 10 mg PO DAILY RF: 0 clopidogrel 75 mg tablet 75 mg PO DAILY RF: 0 sertraline 50 mg tablet 50 mg PO DAILY RF: 0 cholecalciferol (vitamin D3) 1,000 UNIT tablet 5,000 unit PO DAILY RF: 0 ferrous sulfate 325 MG tablet 325 mg PO DAILY RF: 0 aspirin 81 MG tablet,chewable 81 mg PO BIDCM RF: 0 insulin lispro 100 UNIT/ML insulin pen 7 unit SC TIDAC RF: 0 atorvastatin 40 MG tablet 40 mg PO QHS RF: 0 famotidine 40 MG tablet 40 mg PO BID RF: 0 pregabalin 300 mg capsule 300 mg PO BID RF: 0 Primary Care Provider: Марина Weir Referrals: Марина Weir MD [Primary Care Provider] - 1 Week if not improving
[2021-03-18] MEDS: HYDROcodone Bitartrate/Apap 5/325 Tablet PO (15:05)
== END 2021-03-18 16:30 | disposition home or self-care (01) ==
PROVIDERS: Emergency Provider Emergency Medicine; PCP Family Medicine
DX: M43.16 Spondylolisthesis, lumbar region (principal); M25.552 Pain in left hip; I12.9 Hypertensive chronic kidney disease with stage 1 through stage 4 chronic kidney disease, or unspecified chronic kidney disease; E11.22 Type 2 diabetes mellitus with diabetic chronic kidney disease; N18.9 Chronic kidney disease, unspecified; E11.40 Type 2 diabetes mellitus with diabetic neuropathy, unspecified; E78.5 Hyperlipidemia, unspecified; M81.0 Age-related osteoporosis without current pathological fracture; M10.9 Gout, unspecified; R29.6 Repeated falls; Z79.4 Long term (current) use of insulin; Z79.82 Long term (current) use of aspirin; Z79.02 Long term (current) use of antithrombotics/antiplatelets; Z79.899 Other long term (current) drug therapy; Z86.73 Personal history of transient ischemic attack (TIA), and cerebral infarction without residual deficits
CPT/HCPCS: 72131; 73502; 73700; 99283

== ENCOUNTER 2021-04-12 13:52 | Emergency (ER) | payer MEDICARE, MEDICAID, SELFPAY ==
[2021-04-12 13:53] VITALS: BP 136/59; PULSE 70; RESP 15; TEMP 36.2; O2SAT 94; BMI 32.1
[2021-04-12 13:55] VITALS: BP 136/59; PULSE 70; RESP 15; TEMP 36.2; O2SAT 94
--- NOTE | 2021-04-12 13:56 | RAD_ITS ---
STUDY: X-RAY CHEST REASON FOR EXAM: Female, 75 years old. SOB TECHNIQUE: Single AP portable view of the chest. COMPARISON: Comparison is made with prior study dated 11/19/2017. FINDINGS: The lungs are clear and expanded. There is no demonstrated pleural abnormality. Normal size heart. A loop recording device is seen overlying the left heart border. Normal mediastinum and mark. Normal visualized pulmonary arteries. Normal visualized aortic arch and descending thoracic aorta. There are diffuse degenerative changes of the visualized thoracic spine. Normal visualized ribs, clavicles, and shoulders. There is no demonstrated abnormality of the visualized soft tissue structures of the upper abdomen. RAD/Chest 1 View IMPRESSION: No acute abnormality is seen at this time. Electronically Signed: Fortino Rangel MD at 14:38 EST , Service support ,
[2021-04-12 15:30] VITALS: BP 154/57; PULSE 69; RESP 20; TEMP 36.9; O2SAT 95
--- NOTE | 2021-04-12 15:40 | EDS_ITS ---
HPI History of Present Illness Chief Complaint: Weakness Informant: patient and family Narrative Narrative: 75-year-old female presents the emergency room stating that she has COVID-19. She tells me that she was directed to the emergency room by her primary care doctors medical records secretary stating that she should get monoclonal antibodies. Patient states she tested positive on April 09 at [facility]. The patient cannot tell me when she got sick but family states that it was before and she was certainly sick on the when she was in [place]. She was not Covid vaccinated. Patient denies any shortness of breath or significant cough. She notes generalized fatigue and decreased p.o. 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) Stroke Syncope Thyroid goiter Thyroid nodule Home Medications cholecalciferol (vitamin D3) 5,000 unit PO DAILY 02/21/17 [History Last Taken 10/29/17] allopurinol 100 mg tablet 1 tab PO BID tab 08/15/17 [History Last Taken 10/29/17] ferrous sulfate 325 mg PO DAILY 12/13/17 [History Last Taken Unknown] aspirin 81 mg PO BIDCM 01/02/18 [History Last Taken Unknown] clopidogrel 75 mg tablet 75 mg PO DAILY 06/16/20 [History Last Taken Unknown] lisinopril 10 mg tablet 10 mg PO DAILY 06/16/20 [History Last Taken Unknown] sertraline 50 mg tablet 50 mg PO DAILY 06/16/20 [History Last Taken Unknown] atorvastatin 40 mg PO QHS 07/15/20 [History Last Taken Unknown] famotidine 40 mg PO BID 07/15/20 [History Last Taken Unknown] pregabalin 300 mg capsule 300 mg PO BID 03/02/21 [History Last Taken Unknown] hydrocodone-acetaminophen 1 tab PO Q6H PRN PRN 3 Days #12 tablet 03/18/21 [Rx Last Taken Unknown] insulin detemir U-100 [Levemir FlexTouch U-100 Insuln] 36 unit SUBCUT QHS 04/12/21 [History Last Taken Unknown] insulin lispro 14 unit SC BREAKFAST 04/12/21 [History Last Taken Unknown] insulin lispro 14 unit SUBCUT LUNCH 04/12/21 [History Last Taken Unknown] insulin lispro 18 unit SUBCUT DINNER 04/12/21 [History Last Taken Unknown] Allergy/AdvReac Type Severity Reaction Status Date / Time duloxetine [From Cymbalta] Allergy Unknown Verified 04/12/21 13:55 linagliptin [From Tradjenta] Allergy Hives Verified 04/12/21 13:55 oxycodone [From OxyContin] Allergy Rash Verified 04/12/21 13:55 Family History Unknown Alcoholism Arthritis Asthma Depression Hypertension High cholesterol Kidney disease Severe allergy Diabetes Surgical History H/O tubal ligation History of back surgery History of carpal tunnel release History of cataract surgery History of knee replacement History of loop recorder (12/12/19) History of robot-assisted laparoscopic hysterectomy (10/02/19) History of salpingo-oophorectomy (10/02/19) Hx of appendectomy Hx of cholecystectomy Social History Smoking Status: Never smoker second hand exposure: No alcohol intake: never substance use type: does not use ROS ROS ED ROS Narrative Fatigue Constitutional Constitutional ED: Reports chills and fever(s); Denies weight loss Eyes Eyes: Denies change in vision or diplopia ENT ENT ED: Denies ear pain, rhinorrhea or sore throat Cardiovascular Cardiovascular: Denies chest pain, orthopnea, palpitations or racing heartbeat Respiratory/Chest Respiratory/Chest: Denies cough, dyspnea or orthopnea Gastrointestinal Gastrointestinal: Reports nausea; Denies abdominal pain, diarrhea or vomiting Genitourinary Genitourinary ED: Denies dysuria, hematuria or urinary frequency Musculoskeletal Musculoskeletal: Reports myalgias; Denies arthralgias Integumentary Denies abscess or rash Neurologic Neurologic: Denies headache(s) or weakness Psychiatric Psychiatric: Denies anxiety, depression, suicidal ideation or suicidal thoughts Endocrine Endocrinology: Denies polydipsia, polyphagia or polyuria Allergic/Immunologic Allergic/Immunologic ED: Denies mouth swelling, tongue swelling or urticaria EXAM Physical Exam Const Vital Signs: 04/12/21 13:53 04/12/21 13:55 04/12/21 15:30 Temperature 97.1 F L 97.1 F L 98.5 F Temperature Source Temporal Temporal Oral Pulse Rate 70 70 69 Respiratory Rate 15 15 20 H Respiratory Effort Short of Breath Respiratory Pattern Normal Blood Pressure 136/59 H 136/59 H 154/57 H Blood Pressure Mean 84 84 89 Pulse Ox 94 94 95 Oxygen Delivery Method Room Air Room Air Room Air 04/12/21 17:14 Temperature Temperature Source Pulse Rate 78 Respiratory Rate 18 Respiratory Effort Respiratory Pattern Blood Pressure 151/60 H Blood Pressure Mean 90 Pulse Ox 95 Oxygen Delivery Method Room Air Positive well nourished and well developed General Appearance ED: well developed HEENT Reports normocephalic, head/scalp atraumatic, TM's clear and moist mucous me mbranes Negative for trauma Tympanic Membrane ED: Yes TM's clear Eyes PERRL and EOMs intact bilaterally Neck no lymphadenopathy, supple and no JVD Resp normal respiratory effort and clear to auscultation bilaterally Cardio regular rate, regular rhythm and no murmurs GI normal to inspection, nondistended, normoactive bowel sounds and non-tender Palpation: soft Back/Spine no CVA tenderness and normal ROM Extremity normal to inspection General Extremety ED: Negative for edema General Extremity: Negative for edema Neuro oriented x3 and CN's II-XII intact bilaterally Sensorium / Orientation: alert Motor Exam: strength 5/5 throughout Psych mental status grossly normal Mood & Affect: Negative for depressed or tearful Skin no rashes or lesions noted and no wounds MDM MDM MDM Narrative Medical decision making narrative: My interpretation of the patient's chest x- ray is no acute process. Basic blood work shows a white count of 2.9 with a platelet count of 90 and hemoglobin of 9.2. Creatinine 1.37. Normal electrolytes. Glucose of 236. Patient is not requiring any supplemental oxygen. Her biggest complaint is fatigue and lack of appetite. Unfortunately at this time I do not see an obvious medical reason to admit her other than if she is unable to care for herself. Patient states she would prefer not to stay in the hospital. She states that she has a home health aide coming in on Monday and Monday and her nurse comes in on . Her daughter who is here with her states that she can check on her and help her out when able. We did talk about admitting for inability to care for self and transfer to rehab facility but the patient declines this at this time. I do not see an indication for dexamethasone at this time and she is out of the window for monoclonal antibody treatments based on the dates that they have provided me Lab Data Attestation: I reviewed the patient's lab results. Labs: Laboratory Results - last 24 hr 04/12/21 04/12/21 15:40 15:40 WBC 2.9 L RBC 3.34 L Hgb 9.2 L Hct 30.6 L MCV 91.6 MCH 27.5 MCHC 30.1 L RDW Std Deviation 49.8 H RDW Coeff of Kenneth 14.8 H Plt Count 90 L MPV 12.2 H Immature Gran % (Auto) 0.400 Neut % (Auto) 80.6 H Lymph % (Auto) 12.3 L [place] % (Auto) 6.3 Eos % (Auto) 0.4 Baso % (Auto) 0.0 Absolute Neuts (auto) 2.3 Absolute Lymphs (auto) 0.35 L Nucleated RBC % 0 Differential Comment SEE COMMENT Diff Path Review May foll Platelet Estimate MOD DEC RBC Morphology N CHROM Anisocytosis RARE Macrocytosis RARE Ovalocytes RARE Sodium 139 Potassium 4.3 Chloride 105 Carbon Dioxide 25.0 Anion Gap 9 BUN 20 H Creatinine 1.37 H Estim Creat Clear Calc 27.19 Est GFR (MDRD) Af Amer 48 L Est GFR (MDRD) Non-Af 40 L BUN/Creatinine Ratio 14.6 Glucose 236 H Calcium 8.3 L Total Bilirubin 0.30 AST 66 H ALT 36 Alkaline Phosphatase 92 Total Protein 7.0 Albumin 3.0 L Globulin 4.0 Albumin/Globulin Ratio 0.8 L Radiography Diagnostic Testing: Clinical Impression(s) from Imaging Studies Chest X-Ray 04/12/21 13:56 IMPRESSION: No acute abnormality is seen at this time. Electronically Signed: Fortino Rangel MD at 14:38 EST , Service support , Discharge Plan Triage Chief Complaint: Weakness ED Provider: Cem Calderon Dx/Rx/DC Orders Clinical Impression: COVID-19, Thrombocytopenia associated with COVID-19, Fatigue Instructions: Coronavirus Disease 2019 (COVID-19): Caring for Yourself or Others Prescriptions: No Action allopurinol 100 mg tablet 1 tab PO BID RF: 0 lisinopril 10 mg tablet 10 mg PO DAILY RF: 0 clopidogrel 75 mg tablet 75 mg PO DAILY RF: 0 sertraline 50 mg tablet 50 mg PO DAILY RF: 0 cholecalciferol (vitamin D3) 1,000 UNIT tablet 5,000 unit PO DAILY RF: 0 ferrous sulfate 325 MG tablet 325 mg PO DAILY RF: 0 aspirin 81 MG tablet,chewable 81 mg PO BIDCM RF: 0 atorvastatin 40 MG tablet 40 mg PO QHS RF: 0 famotidine 40 MG tablet 40 mg PO BID RF: 0 pregabalin 300 mg capsule 300 mg PO BID RF: 0 hydrocodone-acetaminophen 5-325 mg tablet 1 tab PO Q6H PRN PRN (Reason: Pain) 3 Days Qty: 12 RF: 0 insulin lispro 100 unit/mL insulin pen 14 unit SUBCUT LUNCH RF: 0 insulin lispro 100 unit/mL insulin pen 18 unit SUBCUT DINNER RF: 0 Levemir FlexTouch U-100 Insuln 100 unit/mL (3 mL) insulin pen 36 unit SUBCUT QHS RF: 0 insulin lispro 100 UNIT/ML insulin pen 14 unit SC BREAKFAST RF: 0 Primary Care Provider: Марина Weir Referrals: Марина Weir MD [Primary Care Provider] - As Needed Disposition Disposition: Home, Self Care
[2021-04-12 15:52] LABS: Absolute Lymphocyte Count 0.35 X10^3/uL (0.83-4.51); Absolute Neutrophil Count 2.3 X10^3/uL (2.0-7.7); Eosinophil# 0.01 X10^3/uL; Eosinophils% 0.4 % (0-5); Hematocrit 30.6 % (37-47); Hemoglobin 9.2 g/dL (12.0-15.0); Lymphocyte # 0.35 X10^3/ul (0.83-4.51); Lymphocyte % 12.3 % (19-41); Mean Corp Hgb Conc 30.1 g/dL (32-36); Mean Corpuscular Hgb 27.5 pg (27.0-32.0); Mean Corpuscular Volume 91.6 fL (81-99); Mean Platelet Vol. 12.2 fl (6.2-12.0); Monocyte# 0.18 X10^3/uL; Monocyte% 6.3 % (0-10); NRBC Flagged by Analyzer 0 % (0-5); Neutrophil % 80.6 % (47-70); POSITIVE COUNT YES; POSITIVE DIFFERENTIAL YES; Platelet Count 90 K/mm3 (150-450); RBC Distribution Width CV 14.8 % (11.6-14.6); RBC Distribution Width SD 49.8 fl (35.1-43.9); Red Blood Count 3.34 M/mm3 (4.2-5.4); White Blood Count 2.9 K/mm3 (4.4-11.0)
[2021-04-12 15:53] LABS: Differential Indicated SCAN CRITERIA MET
[2021-04-12 16:12] LABS: ALB/GLOB Ratio 0.8 RATIO (0.9-2.4); AST(SGOT) 66 U/L (15-37); Alanine Aminotransfer ALT/SGPT 36 U/L (13-56); Alkaline Phosphatase 92 U/L (45-117); Anion Gap 9 (5-15); BUN 20 mg/dL (7-18); BUN/Creat Ratio 14.6 RATIO (10-20); Calcium,Total 8.3 mg/dL (8.5-10.1); Chloride 105 mmol/L (98-107); Creatinine, Serum 1.37 mg/dL (0.55-1.02); EST Glomerular Filtration Rate 40 mL/min (>60); Est Glom Filt Rate - Afr Amer 48 mL/min (>60); Estimated Creatinine Clearance 27.19 ml/min; Glucose 236 mg/dL (74-106); Potassium 4.3 mmol/L (3.5-5.1); Sodium Level 139 mmol/L (136-145)
--- NOTE | 2021-04-12 16:17 | ED.RN ---
THIS RN TOOK PHONE CALL FROM PT DAUGHTER AND POA. BELKIS SHARES CONCERN THAT PT LIVES ALONE, AND CANNOT CARE FOR HERSELF. DR. CAMPOS INFORMED.
[2021-04-12 16:54] LABS: Anisocytosis RARE; Platelet Estimate MOD DEC (ADEQ); Red Cell Morphology N CHROM NORMAL (NORM C&C)
[2021-04-12 16:55] LABS: Macrocytosis RARE; Ovalocyte RARE
[2021-04-12 17:14] VITALS: BP 151/60; PULSE 78; RESP 18; O2SAT 95
[2021-04-13 12:41] LABS: Pathologist Review Reviewed
== END 2021-04-12 17:59 | disposition home or self-care (01) ==
PROVIDERS: Emergency Provider Emergency Medicine; PCP Family Medicine
DX: U07.1 COVID-19 (principal); D69.6 Thrombocytopenia, unspecified; R53.83 Other fatigue; I12.9 Hypertensive chronic kidney disease with stage 1 through stage 4 chronic kidney disease, or unspecified chronic kidney disease; E11.22 Type 2 diabetes mellitus with diabetic chronic kidney disease; N18.9 Chronic kidney disease, unspecified; E11.36 Type 2 diabetes mellitus with diabetic cataract; E11.40 Type 2 diabetes mellitus with diabetic neuropathy, unspecified; Z86.73 Personal history of transient ischemic attack (TIA), and cerebral infarction without residual deficits; Z86.711 Personal history of pulmonary embolism; Z79.899 Other long term (current) drug therapy; Z79.82 Long term (current) use of aspirin; Z79.4 Long term (current) use of insulin
CPT/HCPCS: 71045; 80053; 85025; 99283

== ENCOUNTER 2022-01-14 19:58 | Inpatient (IN) | payer MEDICARE, MEDICAID, SELFPAY ==
[2022-01-14 19:59] VITALS: BP 155/55; PULSE 69; RESP 16; TEMP 36.7; O2SAT 96; BMI 32.5
[2022-01-14 20:03] VITALS: BP 155/55; PULSE 69; RESP 16; TEMP 36.7; O2SAT 96
--- NOTE | 2022-01-14 20:27 | CT_ITS ---
STUDY: CT BRAIN WITHOUT CONTRAST REASON FOR EXAM: Female, 76 years old. slurred speach RADIATION DOSAGE (If Supplied By Facility): CTDIvol = ( 44.99 ) mGy, DLP = ( 762.36 ) mGycm TECHNIQUE: Transaxial CT imaging of the brain was performed without administration of intravenous contrast material. Individualized dose optimization techniques were used for this CT. COMPARISON: 12/17/2020 FINDINGS: Normal soft tissue structures. Normal calvarium. There is mild cerebral atrophy with widening of the extra-axial spaces and ventricular dilatation. There are areas of decreased attenuation within the white matter tracts of the supratentorial brain, consistent with microvascular disease changes. Chronic lacunar infarct of the right putamen. Normal brainstem. Normal cerebellum. There is no intracranial hemorrhage. There are no findings of an acute ischemic infarction. Normal visualized paranasal sinuses. CT/Brain/Head without Contrast IMPRESSION: Chronic involutional changes of the brain. Electronically Signed: Oseas Conroy MD at 21:30 EDT ,
--- NOTE | 2022-01-14 20:28 | EDS_ITS ---
HPI History of Present Illness Chief Complaint: Confusion Narrative Narrative: Patient presents with 2 to 3-week history of frequent falls, apparently increased confusion per family as well as intermittent slurring of the speech. When I talked to the patient she is lucid coherent and oriented. She is currently not slurring her speech. No recent fevers or chills she has no focal weakness. She is on Plavix and a few weeks ago she fell and hit her head. 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) Stroke Syncope Thyroid goiter Thyroid nodule Home Medications cholecalciferol (vitamin D3) 25 mcg (1,000 unit) tablet 5,000 unit PO DAILY supplement 02/21/17 [History Last Taken 10/29/17] allopurinol 100 mg tablet 1 tab PO BID gout 08/15/17 [History Last Taken 10/29/17] ferrous sulfate 325 mg (65 mg iron) tablet 325 mg PO DAILY supplement 12/13/17 [History Last Taken Unknown] aspirin 81 mg chewable tablet 81 mg PO BIDCM blood thinner 01/02/18 [History Last Taken Unknown] clopidogrel 75 mg tablet 75 mg PO DAILY 06/16/20 [History Last Taken Unknown] lisinopril 10 mg tablet 10 mg PO DAILY 06/16/20 [History Last Taken Unknown] sertraline 50 mg tablet 50 mg PO DAILY 06/16/20 [History Last Taken Unknown] atorvastatin 40 mg tablet 40 mg PO QHS 07/15/20 [History Last Taken Unknown] famotidine 40 mg tablet 40 mg PO BID 07/15/20 [History Last Taken Unknown] pregabalin 300 mg capsule 300 mg PO BID 03/02/21 [History Last Taken Unknown] hydrocodone-acetaminophen 5-325mg 5mg-325mg 1 tab PO Q6H PRN PRN Pain 3 days #12 TABLETS 03/18/21 [Rx Last Taken Unknown] insulin detemir U-100 100 unit/mL (3 mL) subcutaneous pen (Levemir FlexTouch U- 100 Insulin) 36 unit subcut QHS 04/12/21 [History Last Taken Unknown] insulin lispro 100 unit/mL subcutaneous pen 14 unit SC BREAKFAST 04/12/21 [History Last Taken Unknown] insulin lispro 100 unit/mL subcutaneous pen 14 unit subcut LUNCH 04/12/21 [History Last Taken Unknown] insulin lispro 100 unit/mL subcutaneous pen 18 unit subcut DINNER 04/12/21 [History Last Taken Unknown] Allergy/AdvReac Type Severity Reaction Status Date / Time duloxetine [From Cymbalta] Allergy Unknown Verified 04/12/21 13:55 linagliptin [From Tradjenta] Allergy Hives Verified 04/12/21 13:55 oxycodone [From OxyContin] Allergy Rash Verified 04/12/21 13:55 Family History Unknown Alcoholism Arthritis Asthma Depression Hypertension High cholesterol Kidney disease Severe allergy Diabetes Surgical History H/O tubal ligation History of back surgery History of carpal tunnel release History of cataract surgery History of knee replacement History of loop recorder (12/12/19) History of robot-assisted laparoscopic hysterectomy (10/02/19) History of salpingo-oophorectomy (10/02/19) Hx of appendectomy Hx of cholecystectomy Social History Smoking Status: Never smoker second hand exposure: No alcohol intake: never substance use type: does not use ROS ROS ED ROS Narrative Past medical history: Reviewed in [employer] Medications: Reviewed and Social history: Noncontributory Review of systems: All systems negative except as indicated General: No fever. Generalized weakness Eyes: No visual changes ENT: No upper airway congestion, normal voice Neck: No neck pain Cardiovascular: No chest pain Respiratory: No shortness of breath or cough Gastrointestinal: No abdominal pain, nausea vomiting or diarrhea Genitourinary: No dysuria Musculoskeletal: Denies myalgias no difficulty with ambulation Skin: No rash Neurological: As in HPI Psych: No recent behavioral changes Hematologic: No easy bleeding or easy bruising EXAM Physical Exam Narrative Exam Narrative: Physical exam General: Patient appears chronically ill, does not appear in acute distress. Head: Normocephalic, Atraumatic Eyes: Conjunctiva not pale ENT: Moist mucous membranes Neck: Supple, Nontender, No lymphadenopathy Cardiovascular: Regular rate, Regular rhythm Respiratory: No distress, CTA bilaterally Abdomen: Soft, Nontender, Nondistended Back: Nontender, Normal Inspection. Negative for: CVA tenderness Extremities: Nontender, No edema Skin: Normal color, No rash Neurological: Alert, oriented x3. Normal Strength, Normal Sensation no speech difficulties. Normal neurological exam. Psychological: Normal affect Const Vital Signs: 01/14/22 19:59 01/14/22 20:03 01/14/22 20:20 Temperature 98.0 F 98.0 F Temperature Source Temporal Temporal Pulse Rate 69 69 Respiratory Rate 16 16 Respiratory Effort Normal Non-Labored Blood Pressure 155/55 H 155/55 H Blood Pressure Mean 88 88 Pulse Ox 96 96 Oxygen Delivery Method Room Air Room Air MDM MDM MDM Narrative Medical decision making narrative: Patient has a normal ED work-up. She appears well. However because of her subjective confusion, being off balance and having slurred speech I will admit her for an MRI in the morning as well as PT OT. Lab Data Labs: Laboratory Results - last 24 hr 01/14/22 01/14/22 01/14/22 20:18 20:18 20:55 WBC 6.1 RBC 3.29 L Hgb 8.5 L Hct 29.1 L MCV 88.4 MCH 25.8 L MCHC 29.2 L RDW Std Deviation 47.4 H RDW Coeff of Kenneth 14.6 Plt Count 145 L MPV 12.8 H Immature Gran % (Auto) 0.500 Neut % (Auto) 69.5 Lymph % (Auto) 20.8 [place] % (Auto) 6.4 Eos % (Auto) 2.3 Baso % (Auto) 0.5 Absolute Neuts (auto) 4.3 Absolute Lymphs (auto) 1.27 Nucleated RBC % 0 Sodium 139 Potassium 4.1 Chloride 103 Carbon Dioxide 30.0 Anion Gap 6 BUN 21 H Creatinine 1.45 H Estim Creat Clear Calc 25.30 Est GFR (MDRD) Af Amer 45 L Est GFR (MDRD) Non-Af 37 L BUN/Creatinine Ratio 14.5 Glucose 213 H Calcium 9.2 Total Bilirubin 0.30 AST 37 ALT 33 Alkaline Phosphatase 117 Total Protein 6.7 Albumin 3.2 Globulin 3.5 Albumin/Globulin Ratio 0.9 Urine Color Yellow Urine Clarity Sl. Cloudy Urine pH 6.0 Ur Specific [place] 1.010 Urine Protein Negative Urine Glucose (UA) Normal Urine Ketones Negative Urine Occult Blood Negative Urine Nitrite Negative Urine Bilirubin Negative Urine Urobilinogen Normal Ur Leukocyte Esterase 100 H Urine RBC 0 SEEN Urine WBC 0 SEEN Ur Squamous Epith Cells 0-5 SEEN Urine Bacteria 0 SEEN Urine Mucus 0 SEEN Radiography Diagnostic Testing: Clinical Impression(s) from Imaging Studies Brain CT 01/14/22 20:27 IMPRESSION: Chronic involutional changes of the brain. Electronically Signed: Oseas Conroy MD at 21:30 EDT Reading Location ID and State: 119 / Compute Tel , Service support , Chest X-Ray 01/14/22 20:40 IMPRESSION: No active disease. Electronically Signed: Oseas Conroy MD at 21:31 EDT , Chest x-ray 1 view read by me is normal Discharge Plan Triage Chief Complaint: Confusion ED Provider: Reza Matthews Dx/Rx/DC Orders Clinical Impression: Slurred speech, Weakness Prescriptions: No Action allopurinol 100 mg tablet 1 tab PO BID lisinopril 10 mg tablet 10 mg PO DAILY clopidogrel 75 mg tablet 75 mg PO DAILY sertraline 50 mg tablet 50 mg PO DAILY cholecalciferol (vitamin D3) 1,000 UNIT tablet 5,000 unit PO DAILY ferrous sulfate 325 MG tablet 325 mg PO DAILY aspirin 81 MG tablet,chewable 81 mg PO BIDCM atorvastatin 40 MG tablet 40 mg PO QHS famotidine 40 MG tablet 40 mg PO BID pregabalin 300 mg capsule 300 mg PO BID hydrocodone-acetaminophen 5-325 mg tablet 1 tab PO Q6H PRN PRN (Reason: Pain) 3 Days Qty: 12 0RF insulin lispro 100 unit/mL insulin pen 14 unit SUBCUT LUNCH insulin lispro 100 unit/mL insulin pen 18 unit SUBCUT DINNER Levemir FlexTouch U-100 Insuln 100 unit/mL (3 mL) insulin pen 36 unit SUBCUT QHS insulin lispro 100 UNIT/ML insulin pen 14 unit SC BREAKFAST Primary Care Provider: Марина Weir Referrals: Марина Weir MD [Primary Care Provider] - Disposition Disposition: Acute Care Hospital [facility]
[2022-01-14 20:40] LABS: Absolute Lymphocyte Count 1.27 X10^3/uL (0.83-4.51); Absolute Neutrophil Count 4.3 X10^3/uL (2.0-7.7); Basophil# 0.03 X10^3/uL; Basophil% 0.5 % (0-1); Eosinophil# 0.14 X10^3/uL; Eosinophils% 2.3 % (0-5); Hematocrit 29.1 % (37-47); Hemoglobin 8.5 g/dL (12.0-15.0); Lymphocyte # 1.27 X10^3/ul (0.83-4.51); Lymphocyte % 20.8 % (19-41); Mean Corp Hgb Conc 29.2 g/dL (32-36); Mean Corpuscular Hgb 25.8 pg (27.0-32.0); Mean Corpuscular Volume 88.4 fL (81-99); Mean Platelet Vol. 12.8 fl (6.2-12.0); Monocyte# 0.39 X10^3/uL; Monocyte% 6.4 % (0-10); NRBC Flagged by Analyzer 0 % (0-5); Neutrophil # 4.26 X10^3/uL (2.7-7.7); Neutrophil % 69.5 % (47-70); Platelet Count 145 K/mm3 (150-450); RBC Distribution Width CV 14.6 % (11.6-14.6); RBC Distribution Width SD 47.4 fl (35.1-43.9); Red Blood Count 3.29 M/mm3 (4.2-5.4); White Blood Count 6.1 K/mm3 (4.4-11.0)
--- NOTE | 2022-01-14 20:40 | RAD_ITS ---
STUDY: X-RAY CHEST REASON FOR EXAM: Female, 76 years old. edema TECHNIQUE: Single AP portable view of the chest. COMPARISON: 04/12/2021 FINDINGS: Insertable environmental monitoring technician. The lungs are clear and expanded. Elevated right hemidiaphragm which is unchanged. Normal size heart. Normal mediastinum and mark. Normal visualized pulmonary arteries. Normal visualized aortic arch and descending thoracic aorta. Normal visualized thoracic spine. Normal visualized ribs, clavicles, and shoulders. There is no demonstrated abnormality of the visualized soft tissue structures of the upper abdomen. RAD/Chest 1 View (Portable) IMPRESSION: No active disease. Electronically Signed: Oseas Conroy MD at 21:31 EDT ,
[2022-01-14 20:42] LABS: POSITIVE COUNT NO; POSITIVE DIFFERENTIAL NO; POSITIVE MORPHOLOGY NO
[2022-01-14 21:01] LABS: ALB/GLOB Ratio 0.9 RATIO (0.9-2.4); AST(SGOT) 37 U/L (15-37); Alanine Aminotransfer ALT/SGPT 33 U/L (13-56); Albumin, Serum 3.2 g/dL (3.2-5.0); Alkaline Phosphatase 117 U/L (45-117); Anion Gap 6 (5-15); BUN 21 mg/dL (7-18); BUN/Creat Ratio 14.5 RATIO (10-20); Calcium,Total 9.2 mg/dL (8.5-10.1); Chloride 103 mmol/L (98-107); Creatinine, Serum 1.45 mg/dL (0.55-1.02); EST Glomerular Filtration Rate 37 mL/min (>60); Est Glom Filt Rate - Afr Amer 45 mL/min (>60); Globulin 3.5 g/dL (2.2-4.2); Glucose 213 mg/dL (74-106); Potassium 4.1 mmol/L (3.5-5.1); Protein, Total 6.7 g/dL (6.4-8.2); Sodium Level 139 mmol/L (136-145)
[2022-01-14 21:12] LABS: Bacteria 0 SEEN /hpf (None Seen); Mucous, Urine 0 SEEN /hpf (<or=2+); Red Blood Cells-Urine 0 SEEN /hpf (0-5); White Blood Cells 0 SEEN /hpf (0-5)
[2022-01-14 21:17] LABS: Color, Urine Yellow (Yellow); Glucose, Dipstick Normal (Normal); Ketone-Dipstick Negative (Negative); Leukocyte Esterase-Dipstick 100 /ul (Negative); Nitrite-Dipstick Negative (Negative); Occult Blood-Urine Negative /ul (Negative); Protein-Dipstick Negative (Negative); Urine Bilirubin Dipstick Negative (Negative); Urine Clarity Sl. Cloudy (Clear); Urine Urobilinogen Normal (Normal)
[2022-01-14 21:42] LABS: Squamous Epithelial Cells - UA 0-5 SEEN /hpf (5-10)
--- NOTE | 2022-01-14 21:51 | HP.PCM.HOS_ITS ---
HPI - General General Date of Admission: 01/14/22 Date of Service: 01/14/22 Chief Complaint: confusion, slurred speech HPI Narrative LADI CUELLO, is a 76 F with a PMh as outlined who presents via the ED with a complaint of confusion and slurring of her speech. Per her daughter, she had been having increased confusion and frequent falls as well as slurring of her speech. Family thought it was getting worse so brought her in to the ED. Pateint lives alone. She denied any focal weakness, numbness or tingling, any nausea, vomiting, headache, chest pain, shortness of breath or any other symptoms. Review of systems was otherwise negative. She did not hit her head when she fell. Vitals in the ED were BP of 155/55, CA of 69, RR of 16 and temp of 98F, with oxygen sats of 96% on room air. CBC showed hb of 8.5, wbc of 6.1 and platelets o f 145. Chemistry showed sodium of 139 with K of 4.1 and Cr of 1.45. Urinalysis showed no evidence of infection. CT of the brain showed chronic involutional changes. She is being admitted to be managed for confusion and slurred speech to rule out a stroke. 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) Stroke Syncope Thyroid goiter Thyroid nodule Home Medications cholecalciferol (vitamin D3) 25 mcg (1,000 unit) tablet 5,000 unit PO DAILY supplement 02/21/17 [History Last Taken 10/29/17] allopurinol 100 mg tablet 1 tab PO BID gout 08/15/17 [History Last Taken 10/29/17] ferrous sulfate 325 mg (65 mg iron) tablet 325 mg PO DAILY supplement 12/13/17 [History Last Taken Unknown] aspirin 81 mg chewable tablet 81 mg PO BIDCM blood thinner 01/02/18 [History Last Taken Unknown] clopidogrel 75 mg tablet 75 mg PO DAILY 06/16/20 [History Last Taken Unknown] lisinopril 10 mg tablet 10 mg PO DAILY 06/16/20 [History Last Taken Unknown] sertraline 50 mg tablet 50 mg PO DAILY 06/16/20 [History Last Taken Unknown] atorvastatin 40 mg tablet 40 mg PO QHS 07/15/20 [History Last Taken Unknown] famotidine 40 mg tablet 40 mg PO BID 07/15/20 [History Last Taken Unknown] pregabalin 300 mg capsule 300 mg PO BID 03/02/21 [History Last Taken Unknown] hydrocodone-acetaminophen 5-325mg 5mg-325mg 1 tab PO Q6H PRN PRN Pain 3 days #12 TABLETS 03/18/21 [Rx Last Taken Unknown] insulin detemir U-100 100 unit/mL (3 mL) subcutaneous pen (Levemir FlexTouch U- 100 Insulin) 36 unit subcut QHS 04/12/21 [History Last Taken Unknown] insulin lispro 100 unit/mL subcutaneous pen 14 unit SC BREAKFAST 04/12/21 [History Last Taken Unknown] insulin lispro 100 unit/mL subcutaneous pen 14 unit subcut LUNCH 04/12/21 [History Last Taken Unknown] insulin lispro 100 unit/mL subcutaneous pen 18 unit subcut DINNER 04/12/21 [History Last Taken Unknown] Allergy/AdvReac Type Severity Reaction Status Date / Time duloxetine [From Cymbalta] Allergy Unknown Verified 04/12/21 13:55 linagliptin [From Tradjenta] Allergy Hives Verified 04/12/21 13:55 oxycodone [From OxyContin] Allergy Rash Verified 04/12/21 13:55 Family History Unknown Alcoholism Arthritis Asthma Depression Hypertension High cholesterol Kidney disease Severe allergy Diabetes Surgical History H/O tubal ligation History of back surgery History of carpal tunnel release History of cataract surgery History of knee replacement History of loop recorder (12/12/19) History of robot-assisted laparoscopic hysterectomy (10/02/19) History of salpingo-oophorectomy (10/02/19) Hx of appendectomy Hx of cholecystectomy Social History Smoking Status: Never smoker second hand exposure: No alcohol intake: never substance use type: does not use ROS Constitutional Constitutional: Reports fatigue, malaise and weakness; Denies anorexia, chills or fever(s) Eyes Eyes: Denies change in vision ENT HEENT: Denies abnormal hearing, dysphagia, headache(s), hearing loss or sore throat Cardiovascular Cardiovascular: Denies chest pain, dyspnea on exertion, edema, lightheadedness, palpitations, paroxysmal nocturnal dyspnea, rapid heart rate or syncope Respiratory/Chest Respiratory/Chest: Denies cough, dyspnea, productive cough, shortness of breath at rest, shortness of breath with exertion or wheezing Gastrointestinal Gastrointestinal: Denies abdominal pain, constipation, diarrhea, nausea or vomiting Genitourinary Genitourinary: Denies burning urination, dysuria, nocturia, urinary frequency or urinary hesitancy Musculoskeletal Musculoskeletal: Denies arthralgias Neurologic Neurologic: Reports confusion; Denies dizziness, focal weakness, headache(s), numbness, paresthesias, seizure-like activity, seizures or syncope Psychiatric Psychiatric: Denies anxiety or depression Vital Signs Vital Signs Vital Signs: 01/14/22 19:59 01/14/22 20:03 01/14/22 20:20 Temperature 98.0 F 98.0 F Temperature Source Temporal Temporal Pulse Rate 69 69 Respiratory Rate 16 16 Respiratory Effort Normal Non-Labored Blood Pressure 155/55 H 155/55 H Blood Pressure Mean 88 88 Pulse Ox 96 96 Oxygen Delivery Method Room Air Room Air Weight Weight: 172 lb Body Mass Index (BMI) 32.5 Physical Exam Const alert, oriented x3 and no apparent distress Constitutional Narrative: slurred speech and confusion has improved HEENT normocephalic, head/scalp atraumatic and hearing grossly normal bilaterally Mouth: oral and palatal mucosa normal Eyes PERRL, EOMs intact bilaterally and conjunctivae normal Neck no lymphadenopathy and supple Resp normal respiratory effort, no retractions, no use of accessory muscles and clear to auscultation bilaterally Cardio regular rate, regular rhythm, S1 normal heart sound, S2 normal heart sound and no murmurs GI normal to inspection, nondistended, normoactive bowel sounds, soft to palpation and non-tender Extremity normal to inspection, full ROM and no clubbing, cyanosis or edema Neuro oriented x3, CN's II-XII intact bilaterally, moves all extremities and no focal motor deficits Sensorium / Orientation: awake and alert Speech: speech normal Motor Exam: strength 5/5 throughout Psych affect normal Results Lab / Micro Data Result Diagrams: 01/14/22 20:18 01/14/22 20:18 Labs: Laboratory Results - last 24 hr 01/14/22 20:18: WBC 6.1, RBC 3.29 L, Hgb 8.5 L, Hct 29.1 L, MCV 88.4, MCH 25.8 L , MCHC 29.2 L, RDW Std Deviation 47.4 H, RDW Coeff of Kenneth 14.6, Plt Count 145 L, MPV 12.8 H, Immature Gran % (Auto) 0.500, Neut % (Auto) 69.5, Lymph % (Auto) 20.8, [place] % (Auto) 6.4, Eos % (Auto) 2.3, Baso % (Auto) 0.5, Absolute Neuts (auto) 4.3, Absolute Lymphs (auto) 1.27, Nucleated RBC % 0 01/14/22 20:18: Sodium 139, Potassium 4.1, Chloride 103, Carbon Dioxide 30.0, Anion Gap 6, BUN 21 H, Creatinine 1.45 H, Estim Creat Clear Calc 25.30, Est GFR (MDRD) Af Amer 45 L, Est GFR (MDRD) Non-Af 37 L, BUN/Creatinine Ratio 14.5, Glucose 213 H, Calcium 9.2, Total Bilirubin 0.30, AST 37, ALT 33, Alkaline Phosphatase 117, Total Protein 6.7, Albumin 3.2, Globulin 3.5, Albumin/Globulin Ratio 0.9 01/14/22 20:55: Urine Color Yellow, Urine Clarity Sl. Cloudy, Urine pH 6.0, Ur Specific [employer] 1.010, Urine Protein Negative, Urine Glucose (UA) Normal, Urine Ketones Negative, Urine Occult Blood Negative, Urine Nitrite Negative, Urine Bilirubin Negative, Urine Urobilinogen Normal, Ur Leukocyte Esterase 100 H, U rine RBC 0 SEEN, Urine WBC 0 SEEN, Ur Squamous Epith Cells 0-5 SEEN, Urine Bacteria 0 SEEN, Urine Mucus 0 SEEN Radiology Impression Brain CT 01/14/22 20:27 IMPRESSION: Chronic involutional changes of the brain. Electronically Signed: Oseas Conroy MD at 21:30 EDT Reading Location ID and State: [facility] / [place] Tel , Service support , Chest X-Ray 01/14/22 20:40 IMPRESSION: No active disease. Electronically Signed: Oseas Conroy MD at 21:31 EDT , Assessment & Plan Assessment/Plan (1) Slurred speech: (2) Weakness: PLAN: Plan #SLurred speech and weakness * concerning for TIA. Now resolved * admit to PCU * has been getting weaker at home. * no focal weakness. * CT of the brain showed no acute intracranial pathology * used to be on plavix but stopped due to frequent falls * monitor NIHSS * PO aspirin 81mg daily as well as high intensity statin * for MRI of the brain as well as MRA of head and neck tomorrow * PT/OT consult * fall precautions * #Debility due to frequent falls; as above #Hyperlipidemia: on statin #Hypertension: hold lisinopril to allow for permissive hypertension until MRI results to rule out a stroke or otherwise #type 2 diabetes mellitus * on insulin levemir 36 units qhs * ISS. Accuchecks ACHS * #DVT prophylaxis: lovenox Code status: * patient and family counseled about differences between full code, DNRCC and DNRCCA. Patient elects to be full code. * total face to face time: 17 mins. Charges/Coding Visit Charges OBSV E&M: 83169 Initial observation care L3 Procedures Hospitalists Procedures: 35159 Advncd Care Plan 30 Min
[2022-01-14 22:56] VITALS: BP 123/91; PULSE 68; RESP 15; TEMP 36.7; O2SAT 98
[2022-01-14 23:12] VITALS: PULSE 63
[2022-01-14 23:16] VITALS: BMI 32.4
[2022-01-14] MEDS: Acetaminophen 325 MG Tablet 650 MG PO (23:23)
[2022-01-14] MEDS: 0.9% Normal Saline 1,000 ML 125 ML IV (23:26)
[2022-01-14 23:30] VITALS: BP 159/57; PULSE 69; RESP 14; TEMP 36.7; O2SAT 99
[2022-01-15] VITALS (12 sets, daily range): BP systolic 110–164; BP diastolic 50–68; PULSE 61–74; RESP 12–20; TEMP 35.6–36.9; O2SAT 95–98; BMI 32.4
[2022-01-15] MEDS: HYDROcodone Bitartrate/Apap 5/325 Tablet PO ×3 (00:27→21:16)
--- NOTE | 2022-01-15 05:55 | MRI_ITS ---
STUDY: MRA NECK WITH AND WITHOUT CONTRAST REASON FOR EXAM: Female, 76 years old. Slurred speech TECHNIQUE: 3-D [id number]-[id number] (TOF) imaging was performed in an 1.5 T MRI scanner. 15ML Clariscan via IV was administered for the contrast enhanced images. COMPARISON: None. FINDINGS: RIGHT CAROTID ARTERIES: Normal right common carotid artery (CCA). Normal right carotid bulb. Normal origin of the right internal carotid (ICA) artery without a hemodynamically significant stenosis. Normal visualized cervical portion of the right internal carotid artery. Normal origin of the right external carotid artery (ECA). LEFT CAROTID ARTERIES: Normal left common carotid artery (CCA). Normal left carotid bulb. Normal origin of the left internal carotid (ICA) artery without a hemodynamically significant stenosis. Normal visualized cervical portion of the left internal carotid artery. Normal origin of the left external carotid artery (ECA). VERTEBRAL ARTERIES: Normal antegrade flow within the bilateral vertebral artery without a hemodynamically significant stenosis. They are codominant. MRI/MRA Neck WITH and W/O Contrast IMPRESSION: 1. Normal bilateral cervical carotid and vertebral arteries. 2. Normal aortic arch and origins of the great vessels. Electronically Signed: Dustin Lopez MD at 13:01 EDT ,
--- NOTE | 2022-01-15 05:55 | MRI_ITS ---
HISTORY: slurred speech. TECHNIQUE: Routine n[place] of [place]/brain 3D time of flight MR angiogram protocol was performed without contrast. 3D reconstructions were reviewed. 193 images. COMPARISON: None. FINDINGS: ICAs: No significant stenosis at the intracranial/visualized segments. ACAs: No significant stenosis at the visualized segments. MCAs: No significant stenosis at the visualized segments. dress designer: No significant stenosis at the visualized segments. BASILAR ARTERY: No significant stenosis. VERTEBRAL ARTERIES: No significant stenosis at the intradural/visualized segments. No evidence of intracranial aneurysm or vascular malformation. MRI/MRA Head ONLY without Contrast IMPRESSION: No evidence for large vessel occlusion or other focal vascular abnormality in the n[place] region. Electronically Signed: Ave Chambers MD at 12:27 EDT ,
[2022-01-15 06:38] LABS: Absolute Lymphocyte Count 1.11 X10^3/uL (0.83-4.51); Absolute Neutrophil Count 2.3 X10^3/uL (2.0-7.7); Basophil# 0.02 X10^3/uL; Basophil% 0.5 % (0-1); Eosinophil# 0.13 X10^3/uL; Eosinophils% 3.3 % (0-5); Hematocrit 25.2 % (37-47); Hemoglobin 7.8 g/dL (12.0-15.0); Lymphocyte # 1.11 X10^3/ul (0.83-4.51); Lymphocyte % 28.4 % (19-41); Mean Corpuscular Hgb 27.4 pg (27.0-32.0); Mean Corpuscular Volume 88.4 fL (81-99); Mean Platelet Vol. 12.5 fl (6.2-12.0); Monocyte# 0.34 X10^3/uL; Monocyte% 8.7 % (0-10); NRBC Flagged by Analyzer 0 % (0-5); Neutrophil % 58.8 % (47-70); Platelet Count 108 K/mm3 (150-450); RBC Distribution Width CV 14.4 % (11.6-14.6); RBC Distribution Width SD 46.2 fl (35.1-43.9); Red Blood Count 2.85 M/mm3 (4.2-5.4); White Blood Count 3.9 K/mm3 (4.4-11.0)
[2022-01-15] MEDS: 0.9% Normal Saline 1,000 ML 125 ML IV (06:39)
--- NOTE | 2022-01-15 07:00 | ECHOD_ITS ---
Reason For Study: TIA/CVA Procedure This was a 2D Doppler, Color Flow transthoracic echocardiogram. Exam performed portable in patient room. Left Ventricle Normal LV size. Left ventricular systolic function is normal. The estimated ejection fraction is 55 %. No regional wall motion abnormalities noted. Right Ventricle Normal RV size. Normal systolic function. Atria Normal left atrium. Normal right atrium. Bubble contrast study negative for right to left interatrial shunt. Mitral Valve Mild diffuse mitral valve thickening. Mild (1+) mitral valve insufficiency. Tricuspid Valve Normal tricuspid valve. Aortic Valve Normal aortic valve. Trisinus/trileaflet aortic valve. Pulmonic Valve Normal pulmonic valve. Great Vessels Normal aortic root. The pulmonary artery is normal size. Normal inferior vena cava. Pericardium/Pleural No pericardial effusion. Medication Performed a rapid injection of agitated mix of 9 cc saline and 1cc air to assess for atrial septal defect. MMode/2D Measurements & Calculations LVIDd: 4.9 cm IVSd: 0.71 cm Ao root diam: 2.3 cm LVIDs: 3.3 cm LVPWd: 0.79 cm RVDd: 3.4 cm FS: 33.0 % LAV(MOD-bp): 57.0 ml LA A4 area: 18.0 cm2 LA dimension(2D): 4.9 cm LAV(MOD-bp) Indexed: 32.2 ml/m2 LAV(MOD-sp2): 65.8 ml LAV(MOD-sp4): 47.9 ml RA A4 area: 11.3 cm2 Doppler Measurements & Calculations MV E max jp: 90.3 cm/sec Lat Peak E' Jp: 10.6 cm/sec Med Peak E' Jp: 6.6 cm/sec MV A max jp: 105.9 cm/sec E/E' lat: 8.5 E/E' med: 13.6 MV E/A: 0.85 Ao V2 max: 142.8 cm/sec LV V1 max: 106.0 cm/sec PA V2 max: 96.9 cm/sec Ao max P.2 mmHg LV V1 max P.5 mmHg Ao V2 mean: 94.1 cm/sec Ao mean P.0 mmHg Ao V2 VTI: 36.6 cm TR max jp: 279.1 cm/sec TR max P.2 mmHg ECHO/Echo Complete Interpretation Summary Normal LV size. Left ventricular systolic function is normal. The estimated ejection fraction is 55 %. Bubble contrast study negative for right to left interatrial shunt. Ordering Physician: Archana Umana Referring Physician: Марина Weir Performed By: Janessa Henriquez, NATHANAEL, RVT
[2022-01-15 07:24] LABS: Anion Gap 7 (5-15); BUN 26 mg/dL (7-18); BUN/Creat Ratio 19.4 RATIO (10-20); Calcium,Total 8.3 mg/dL (8.5-10.1); Chloride 106 mmol/L (98-107); Cholesterol 82 mg/dL (200); Creatinine, Serum 1.34 mg/dL (0.55-1.02); EST Glomerular Filtration Rate 41 mL/min (>60); Est Glom Filt Rate - Afr Amer 50 mL/min (>60); Estimated Creatinine Clearance 27.37 ml/min; Glucose 327 mg/dL (74-106); High Density Lipoprotein 38 mg/dL; Potassium 3.9 mmol/L (3.5-5.1); Sodium Level 140 mmol/L (136-145); Triglycerides 241 mg/dL; Very Low Density Lipoprotein 48 mg/dL (5-40)
[2022-01-15] MEDS: Pregabalin 75 MG Capsule 300 MG PO ×2 (09:15→21:16)
[2022-01-15] MEDS: Enoxaparin 30 MG/0.3 ML Syringe SC (09:15)
[2022-01-15] MEDS: Aspirin 81 MG TAB.CHEW PO ×2 (09:17→16:23)
[2022-01-15] MEDS: Ferrous Sulfate 325 MG Tablet PO (09:17)
[2022-01-15] MEDS: Sertraline 50 MG Tablet PO (09:17)
[2022-01-15] MEDS: Famotidine 20 MG Tablet 40 MG PO (09:17)
[2022-01-15] MEDS: Allopurinol 100 MG Tablet PO ×2 (09:17→21:19)
[2022-01-15] MEDS: Lisinopril 10 MG Tablet PO (09:17)
[2022-01-15] MEDS: Cholecalciferol (Vit D3) 125 MCG CAPSULE (5,000 UNITS) PO (09:17)
[2022-01-15] MEDS: Insulin Lispro 100 UNIT/ML INSULN.PEN SC ×3 (09:18→17:54)
[2022-01-15] MEDS: Insulin Lispro 100 UNIT/ML INSULN.PEN 16 UNIT SC ×2 (09:20→12:12)
[2022-01-15 09:31] LABS: Bedside Glucose 286 mg/dL (74-106)
--- NOTE | 2022-01-15 10:15 | CASEMGMT ---
RN CM ACID BLOWER CM to room to meet with patient for initial transition planning/care coordination assessment. ANSLEY HUNTER introduced self and role at [facility]. Pt voices understanding and consents to assessment at this time. Pt sitting up in chair in room in no distress at this time. Pt is A/O at this time and answers all questions appropriately. Care providers, pharmacy, and demographics verified/updated at this time. PCP: Dr Weir Specialists:Pt has initial appt scheduled w/neurologist in [place] on Feb 22. She thinks his name is Dr Villalobos. [facility]erred [facility]: [facility] [employer] [facility] Prescription Benefit: Yes Living Will/HPOA: Has both LW and HPOA, who is her son, Tomás Mccabe. LNOK: 2 sons and 3 dtrs. Son, Loy, is POA Living Arrangements: Lives alone in 2nd floor apt w/elevator access. Independent w/ADL's and most IADL's. Has [employer] services. Aide comes 2 x's/week on and Mon for 2 hrs each day. Nurse comes weekly to set up medications. Transportation: Family or aides thru [employer] DME: States has the following DME: glucometer w/supplies, shower chair, rails/grab bars, hand held shower, lift chair, cane, walker, medical alert. Pt also has toilet riser, but does not use. Pt states no need for further DME at this time. HHC/SNF: No hx of either. Pt states is interested in HHC. Discussed [facility] requirements for homebound and pt states she does feel she meets this at this time. A list of HHC providers including quality and resource use data and consistent with the patient?s preferred geographic region, medical needs, and insurance network were provided from the [employer] Guide. Pt states would like [facility]. She was made aware VM will be left w/them re: referral, but it would not be until Monday until decision is made re: acceptance. ANSLEY HUNTER informed her, if [facility] unable to accept her, to f/u with PCP for further HHC referrals. Pt wishes to return home and states has no concerns with going home at time of discharge. CM to follow for any further discharge planning/needs. Pt voices no further concerns/needs at this time. Advised pt to ask for CM if any further questions/concerns/needs arise. Voices understanding. PLAN: Home w/HHC, pending acceptance. MRI pending. Emperatriz ESPINALN RN CM
[2022-01-15] MEDS: Acetaminophen 325 MG Tablet 650 MG PO (10:22)
--- NOTE | 2022-01-15 10:45 | MRI_ITS ---
HISTORY: slurred speech. TECHNIQUE: Multiplanar and multisequence MR images of the brain were obtained without contrast. 291 images. COMPARISON: CT prior day. FINDINGS: BRAIN PARENCHYMA: Moderate chronic white matter changes. Old lacunar infarcts in the right basal ganglia and right cerebellum. No abnormal focus of restricted diffusion. No acute intracranial hemorrhage identified. CSF SPACES: Mild frontal volume loss. No significant midline shift or other mass effect.No extra-axial fluid collection. VASCULAR SYSTEM: Major intracranial flow voids are maintained. PARANASAL SINUSES AND MASTOID AIR CELLS: No significant air fluid levels. ORBITS: Symmetric contents. MRI/Brain without Contrast IMPRESSION: No evidence for acute infarct. Chronic involutional and white matter changes. Electronically Signed: Ave Chambers MD at 12:36 EDT ,
[2022-01-15 12:36] LABS: Bedside Glucose 208 mg/dL (74-106)
--- NOTE | 2022-01-15 13:06 | PN.HOSP_ITS ---
Documented by User: Suzanne Mattson NP, AUT[employer] WHEEL ALIGNMENT SPECIALIST-C 01/15/22 13:27 Subjective Subjective Patient seen and examined. Reports generalized weakness. MRI negative for stroke. Denies blood in stool or dark stools. Objective Data Objective Data Vital Signs: Vital Signs Temp Pulse Resp BP Pulse Ox O2 Del Method 98.4 F 74 14 110/68 98 Room Air 01/15/22 13:04 01/15/22 13:04 01/15/22 13:04 01/15/22 13:04 01/15/22 13:04 01/15/22 13:04 Oxygen Delivery Method Room Air Weight: 171 lb 11.841 oz Body Mass Index (BMI) 32.4 Intake & Output: Intake and Output for Last 24 Hours 01/13/22 01/14/22 01/15/22 23:59 23:59 23:59 Intake Total 1622.08 / 1622.08 Balance 1622.08 / 1622.08 Lab / Micro Data Result Diagrams: 01/15/22 06:15 01/15/22 06:15 Labs: Laboratory Results - last 24 hr 01/14/22 20:18: WBC 6.1, RBC 3.29 L, Hgb 8.5 L, Hct 29.1 L, MCV 88.4, MCH 25.8 L , MCHC 29.2 L, RDW Std Deviation 47.4 H, RDW Coeff of Kenneth 14.6, Plt Count 145 L, MPV 12.8 H, Immature Gran % (Auto) 0.500, Neut % (Auto) 69.5, Lymph % (Auto) 20.8, [place] % (Auto) 6.4, Eos % (Auto) 2.3, Baso % (Auto) 0.5, Absolute Neuts (auto) 4.3, Absolute Lymphs (auto) 1.27, Nucleated RBC % 0 01/14/22 20:18: Sodium 139, Potassium 4.1, Chloride 103, Carbon Dioxide 30.0, Anion Gap 6, BUN 21 H, Creatinine 1.45 H, Estim Creat Clear Calc 25.30, Est GFR (MDRD) Af Amer 45 L, Est GFR (MDRD) Non-Af 37 L, BUN/Creatinine Ratio 14.5, Glucose 213 H, Calcium 9.2, Total Bilirubin 0.30, AST 37, ALT 33, Alkaline Phosphatase 117, Total Protein 6.7, Albumin 3.2, Globulin 3.5, Albumin/Globulin Ratio 0.9 01/14/22 20:55: Urine Color Yellow, Urine Clarity Sl. Cloudy, Urine pH 6.0, Ur Specific [place] 1.010, Urine Protein Negative, Urine Glucose (UA) Normal, Urine Ketones Negative, Urine Occult Blood Negative, Urine Nitrite Negative, Urine Bilirubin Negative, Urine Urobilinogen Normal, Ur Leukocyte Esterase 100 H, Urine RBC 0 SEEN, Urine WBC 0 SEEN, Ur Squamous Epith Cells 0-5 SEEN, Urine Bacteria 0 SEEN, Urine Mucus 0 SEEN 01/15/22 06:15: Sodium 140, Potassium 3.9, Chloride 106, Carbon Dioxide 27.0, Anion Gap 7, BUN 26 H, Creatinine 1.34 H, Estim Creat Clear Calc 27.37, Est GFR (MDRD) Af Amer 50 L, Est GFR (MDRD) Non-Af 41 L, BUN/Creatinine Ratio 19.4, Glucose 327 H, Calcium 8.3 L, Triglycerides 241 H, Cholesterol 82, LDL Cholesterol -4 L, VLDL Cholesterol 48 H, HDL Cholesterol 38 L 01/15/22 06:15: WBC 3.9 L, RBC 2.85 L, Hgb 7.8 L, Hct 25.2 L, MCV 88.4, MCH 27.4, MCHC 31.0 L D, RDW Std Deviation 46.2 H, RDW Coeff of Kenneth 14.4, Plt Count 108 L, MPV 12.5 H, Immature Gran % (Auto) 0.300, Neut % (Auto) 58.8, Lymph % (Auto) 28.4, [place] % (Auto) 8.7, Eos % (Auto) 3.3, Baso % (Auto) 0.5, Absolute Neuts (auto) 2.3, Absolute Lymphs (auto) 1.11, Nucleated RBC % 0 01/15/22 09:07: POC Glucose 286 H 01/15/22 12:10: POC Glucose 208 H Radiography Diagnostic Testing: Radiology Impression Brain CT 01/14/22 20:27 IMPRESSION: Chronic involutional changes of the brain. Electronically Signed: Oseas Conroy MD at 21:30 EDT , Chest X-Ray 01/14/22 20:40 IMPRESSION: No active disease. Electronically Signed: Oseas Conroy MD at 21:31 EDT , Head MRA 01/15/22 05:55 IMPRESSION: No evidence for large vessel occlusion or other focal vascular abnormality in the [place]. Electronically Signed: Ave Chambers MD at 12:27 EDT , Neck MRA 01/15/22 05:55 IMPRESSION: 1. Normal bilateral cervical carotid and vertebral arteries. 2. Normal aortic arch and origins of the great vessels. Electronically Signed: Dustin Lopez MD at 13:01 EDT , Echocardiogram 01/15/22 07:00 Interpretation Summary Normal LV size. Left ventricular systolic function is normal. The estimated ejection fraction is 55 %. Bubble contrast study negative for right to left interatrial shunt. Ordering Physician: Archana Umana Referring Physician: Марина Weir Performed By: Janessa Henriquez, RDCS, RVT Brain MRI 01/15/22 10:45 IMPRESSION: No evidence for acute infarct. Chronic involutional and white matter changes. Electronically Signed: Ave Chambers MD at 12:36 EDT , Physical Exam Const alert and oriented x3 HEENT normocephalic and moist oral mucous membranes Eyes PERRL, EOMs intact bilaterally and conjunctivae normal Neck no lymphadenopathy Resp normal respiratory effort and clear to auscultation bilaterally Cardio regular rate, regular rhythm and no murmurs Peripheral Pulses: pulses 2+ throughout GI normal to inspection, nondistended, normoactive bowel sounds, non-tender and non-distended Extremity normal to inspection Skin no rashes or lesions noted Lesions: no lesions Rashes: no rashes Trauma: no lacerations or abrasions Neuro CN's II-XII intact bilaterally, no focal motor deficits, no sensory deficits noted and deep tendon reflexes 2+ bilaterally Psych mental status grossly normal and affect normal Assessment & Plan Assessment/Plan (1) Weakness: (2) Anemia: PLAN: Plan 1. Weakness, speech changes- CVA ruled out. Hx prior CVA. MRI without infarct. MRA normal. Echo with EF 55%. PT/OT. Continue aspirin, statin. PT recommending additional therapy. 2. Acute on chronic normocytic anemia-possibly contributing to weakness. Check stool for occult blood. Check iron studies. Twice daily PPI. Trend CBC. Consider GI consult if hemoglobin further reduces and pending occult blood and iron results. 3. Hypertension-stable, continue home regimen. 4. Hyperlipidemia-continue statin. 5. Type 2 diabetes [id number] with sliding scale insulin. Continue home insulin regimen. 6. Chronic kidney disease stage IIIb- appears at baseline. 7. History of gout-on allopurinol. DVT prophylaxis-Lovenox This patient was seen by ANA Whitomre under the supervision of Dr. Wan. Documented by User: Dr. Sergei Wan MD 01/15/22 14:56 Objective Data Lab / Micro Data Result Diagrams: 01/15/22 06:15 01/15/22 06:15 Assessment & Plan Assessment/Plan (1) Weakness: (2) Anemia: Addt'l Comments This patient was seen in conjunction with ANA Whitmore .? I have independently interviewed and examined the patient and reviewed pertinent historical, laboratory, and other data.? Please refer to ANA Whitmore? note for details of this patient's presentation, findings, and recommendations.? I have reviewed? ANA Whitmore ? note and concur? with documented findings. In brief, patient is a 76-year-old lady admitted with slurring of his speech and progressive generalized weakness over 3-week period. Admitted to monitored bed acute CVA was ruled out with MRI study. Patient was however found to be anemic with hemoglobin of 7.8 Physical Examination: GENERAL: Cooperative HEENT: Atraumatic; EYES; Anicteric, Normal Conjunctiva NECK; supple, normal thyroid, RESPIRATORY: Diminished to auscultation CARDIOVASCULAR:? Regular S1 S2, GI:? soft, normoactive bowel sounds, : No Renal angle tenderness; EXTREMITIES:? No edema, no clubbing, MUSCULOSKELETAL:? no muscle wasting NEURO:? ? no lateralizing signs. SKIN:? No Rash PSYCH; flat affect Assessment:? 1.? Transient ischemic attack 2. Normocytic anemia 3. Essential hypertension 4. Dyslipidemia 5. Chronic kidney disease stage IIIb 6. Diabetes mellitus type 2 7. Gout 8. DVT prophylaxis Recommendations: 1.? I have discussed the results of my overview and impressions with the patient 2.? Options for management were reviewed Total time spent by myself and the advanced practice practitioner evaluating patient, reviewing labs, subsequent management decisions, discussion with patient as well as other providers 40 minutes ( 25 of which was spent by myself) Charges/Coding Visit Charges OBSV E&M: 62562 Subsequent observation care L3
--- NOTE | 2022-01-15 13:46 | NURSING ---
Jonny Salazar called with accepting physician, Dr. Olivares on the 1600 unit.
--- NOTE | 2022-01-15 13:59 | CASEMGMT ---
ANSLEY HUNTER NOTE: SMITH form explained re: Observation status for treatment of weakness and slurred speech. Explained hospitalization will be paid per her insurance policy for Outpatient billing and condition will continue to be evaluated for Inpt necessity. Also let pt know that [facility] sends paper in the billing packet with their phone number if questions arise. Pt verbalizes understanding and does not have further questions. Form signed, copy made and placed in chart, and original given to pt. Emperatriz SMITH RN CM
[2022-01-15 14:19] LABS: Iron 22 ug/dL (50-170); Iron Binding Capacity,Total 297 ug/dL (250-450); PERCENT IRON SATURATION 7.4 % (15.0-55.0)
[2022-01-15 16:45] LABS: Bedside Glucose 157 mg/dL (74-106)
[2022-01-15] MEDS: Insulin Lispro 100 UNIT/ML INSULN.PEN 18 UNIT SC (17:55)
[2022-01-15] MEDS: Atorvastatin Calcium 40 MG Tablet PO (21:14)
[2022-01-15] MEDS: Pantoprazole Sodium 40 MG Tablet PO (21:17)
[2022-01-15 22:01] LABS: Bedside Glucose 115 mg/dL (74-106)
[2022-01-16] VITALS (10 sets, daily range): BP systolic 107–171; BP diastolic 51–61; PULSE 63–78; RESP 18–20; TEMP 36.2–36.5; O2SAT 94–97; BMI 32.4
[2022-01-16] MEDS: Insulin Lispro 100 UNIT/ML INSULN.PEN SC ×4 (06:36→21:32)
[2022-01-16 06:49] LABS: Absolute Lymphocyte Count 1.05 X10^3/uL (0.83-4.51); Absolute Neutrophil Count 3.3 X10^3/uL (2.0-7.7); Basophil# 0.02 X10^3/uL; Basophil% 0.4 % (0-1); Eosinophil# 0.22 X10^3/uL; Eosinophils% 4.6 % (0-5); Hematocrit 29.5 % (37-47); Hemoglobin 8.6 g/dL (12.0-15.0); Lymphocyte # 1.05 X10^3/ul (0.83-4.51); Lymphocyte % 21.8 % (19-41); Mean Corp Hgb Conc 29.2 g/dL (32-36); Mean Corpuscular Hgb 26.2 pg (27.0-32.0); Mean Corpuscular Volume 89.9 fL (81-99); Mean Platelet Vol. 12.5 fl (6.2-12.0); Monocyte# 0.25 X10^3/uL; Monocyte% 5.2 % (0-10); NRBC Flagged by Analyzer 0 % (0-5); Neutrophil # 3.26 X10^3/uL (2.7-7.7); Neutrophil % 67.8 % (47-70); Platelet Count 132 K/mm3 (150-450); RBC Distribution Width CV 14.4 % (11.6-14.6); Red Blood Count 3.28 M/mm3 (4.2-5.4); White Blood Count 4.8 K/mm3 (4.4-11.0)
[2022-01-16 07:00] LABS: Bedside Glucose 182 mg/dL (74-106)
[2022-01-16 07:09] LABS: Anion Gap 7 (5-15); BUN 19 mg/dL (7-18); BUN/Creat Ratio 16.4 RATIO (10-20); Calcium,Total 8.6 mg/dL (8.5-10.1); Chloride 106 mmol/L (98-107); Creatinine, Serum 1.16 mg/dL (0.55-1.02); EST Glomerular Filtration Rate 48 mL/min (>60); Est Glom Filt Rate - Afr Amer 59 mL/min (>60); Estimated Creatinine Clearance 31.62 ml/min; Glucose 186 mg/dL (74-106); Potassium 3.8 mmol/L (3.5-5.1); Sodium Level 139 mmol/L (136-145)
[2022-01-16] MEDS: Pregabalin 75 MG Capsule 300 MG PO ×2 (08:36→21:33)
[2022-01-16] MEDS: Enoxaparin 30 MG/0.3 ML Syringe SC (08:37)
[2022-01-16] MEDS: Cholecalciferol (Vit D3) 125 MCG CAPSULE (5,000 UNITS) PO (08:37)
[2022-01-16] MEDS: Aspirin 81 MG TAB.CHEW PO ×2 (08:37→17:16)
[2022-01-16] MEDS: Pantoprazole Sodium 40 MG Tablet PO ×2 (08:37→21:34)
[2022-01-16] MEDS: Sertraline 50 MG Tablet PO (08:37)
[2022-01-16] MEDS: Ferrous Sulfate 325 MG Tablet PO (08:37)
[2022-01-16] MEDS: Lisinopril 10 MG Tablet PO (08:37)
[2022-01-16] MEDS: Allopurinol 100 MG Tablet PO ×2 (08:37→22:10)
[2022-01-16] MEDS: Insulin Lispro 100 UNIT/ML INSULN.PEN 16 UNIT SC ×2 (08:41→12:23)
[2022-01-16] MEDS: HYDROcodone Bitartrate/Apap 5/325 Tablet PO ×2 (08:44→17:27)
[2022-01-16] MEDS: Docusate Sodium 100 MG Capsule PO ×2 (10:08→21:34)
[2022-01-16] MEDS: Sodium Ferric Gluconat 250 MG in 0.9% Normal Saline 250 ML 135 MG IV (10:09)
--- NOTE | 2022-01-16 11:05 | PN.HOSP_ITS ---
Documented by User: Suzanne aMttson NP, CUSTOMER SUCCESS ADVOCATE-C 01/16/22 11:11 Subjective Subjective Patient seen and examined. Denies current symptoms or complaints. Still reports generalized weakness/fatigue. Objective Data Objective Data Vital Signs: Vital Signs Temp Pulse Resp BP Pulse Ox O2 Del Method 97.2 F L 71 18 163/60 H 97 Room Air 01/16/22 08:30 01/16/22 08:30 01/16/22 08:30 01/16/22 08:30 01/16/22 08:30 01/16/22 08:30 Oxygen Delivery Method Room Air Weight: 171 lb 11.841 oz Body Mass Index (BMI) 32.4 Intake & Output: Intake and Output for Last 24 Hours 01/14/22 01/15/22 01/16/22 23:59 23:59 23:59 Intake Total 2982.08 / 3222.08 240 / 240 Balance 2982.08 / 3222.08 240 / 240 Lab / Micro Data Result Diagrams: 01/16/22 05:48 01/16/22 05:48 Labs: Laboratory Results - last 24 hr 01/15/22 06:15: Iron 22 L, TIBC 297, Iron Saturation 7.4 L, Folate 7.40 01/15/22 12:10: POC Glucose 208 H 01/15/22 16:16: POC Glucose 157 H 01/15/22 21:07: POC Glucose 115 H 01/16/22 05:48: WBC 4.8, RBC 3.28 L, Hgb 8.6 L, Hct 29.5 L, MCV 89.9, MCH 26.2 L , MCHC 29.2 L D, RDW Std Deviation 47.0 H, RDW Coeff of Kenneth 14.4, Plt Count 132 L, MPV 12.5 H, Immature Gran % (Auto) 0.200, Neut % (Auto) 67.8, Lymph % (Auto) 21.8, [place] % (Auto) 5.2, Eos % (Auto) 4.6, Baso % (Auto) 0.4, Absolute Neuts (auto) 3.3, Absolute Lymphs (auto) 1.05, Nucleated RBC % 0 01/16/22 05:48: Sodium 139, Potassium 3.8, Chloride 106, Carbon Dioxide 26.0, Anion Gap 7, BUN 19 H, Creatinine 1.16 H, Estim Creat Clear Calc 31.62, Est GFR (MDRD) Af Amer 59 L, Est GFR (MDRD) Non-Af 48 L, BUN/Creatinine Ratio 16.4, Glucose 186 H, Calcium 8.6 01/16/22 06:35: POC Glucose 182 H Radiography Diagnostic Testing: Radiology Impression Head MRA 01/15/22 05:55 IMPRESSION: No evidence for large vessel occlusion or other focal vascular abnormality in the [place] region. Electronically Signed: Ave Chambers MD at 12:27 EDT , Neck MRA 01/15/22 05:55 IMPRESSION: 1. Normal bilateral cervical carotid and vertebral arteries. 2. Normal aortic arch and origins of the great vessels. Electronically Signed: Dustin Lopez MD at 13:01 EDT Reading Location ID and State: [facility] / [place] , Service support , Echocardiogram 01/15/22 07:00 Interpretation Summary Normal LV size. Left ventricular systolic function is normal. The estimated ejection fraction is 55 %. Bubble contrast study negative for right to left interatrial shunt. Ordering Physician: Archana Umana Referring Physician: Марина Weir Performed By: Janessa Henriquez, NATHANAEL, RVT Brain MRI 01/15/22 10:45 IMPRESSION: No evidence for acute infarct. Chronic involutional and white matter changes. Electronically Signed: Ave Chambers MD at 12:36 EDT , Physical Exam Const alert and oriented x3 HEENT normocephalic and moist oral mucous membranes Eyes PERRL, EOMs intact bilaterally and conjunctivae normal Neck no lymphadenopathy Resp normal respiratory effort and clear to auscultation bilaterally Cardio regular rate, regular rhythm and no murmurs Peripheral Pulses: pulses 2+ throughout GI normal to inspection, nondistended, normoactive bowel sounds, non-tender and non-distended Extremity normal to inspection Skin no rashes or lesions noted Lesions: no lesions Rashes: no rashes Trauma: no lacerations or abrasions Neuro CN's II-XII intact bilaterally, no focal motor deficits, no sensory deficits noted and deep tendon reflexes 2+ bilaterally Psych mental status grossly normal and affect normal Assessment & Plan Assessment/Plan (1) Anemia: (2) Weakness: PLAN: Plan 1. Weakness, speech changes- CVA ruled out. Hx prior CVA.? MRI without infarct.? MRA normal.? Echo with EF 55%.? PT/OT.? Continue aspirin, statin.? PT recommending additional therapy. 2. Acute on chronic normocytic anemia-possibly contributing to weakness.? Check stool for occult blood.? Iron studies with significant iron deficiency.? Twice daily PPI.? Trend CBC.? GI consult. IV iron. 3. Hypertension-stable, continue home regimen. 4. Hyperlipidemia-continue statin. 5. Type 2 diabetes [id number]-[id number]-[id number] with sliding scale insulin.? Continue home insulin regimen. 6. Chronic kidney disease stage IIIb- appears at baseline. 7. History of gout-on allopurinol. DVT prophylaxis-Lovenox This patient was seen by ANA Whitmore under the supervision of Dr. Wan. Documented by User: Dr. Sergei Wan MD 01/16/22 11:24 Objective Data Lab / Micro Data Result Diagrams: 01/16/22 05:48 01/16/22 05:48 Assessment & Plan Assessment/Plan (1) Anemia: (2) Weakness: Addt'l Comments This patient was seen in conjunction with ANA Whitmore .? I have independently interviewed and examined the patient and reviewed pertinent historical, laboratory, and other data.? Please refer to ANA Whitmore? note for details of this patient's presentation, findings, and recommendations.? I have reviewed? ANA Whitmore ? note and concur? with documented findings. In brief, patient is a 76-year-old lady admitted with slurring of his speech and progressive generalized weakness over 3-week period.? Admitted to monitored bed acute CVA was ruled out with MRI study.? Patient was however found to be anemic with hemoglobin of 7.8 ? 01/16/2022 iron studies did reveal significant iron deficiency anemia. Consult has been placed to GI for endoscopic evaluation Physical Examination: GENERAL: Cooperative HEENT: Atraumatic; EYES; Anicteric, Normal Conjunctiva NECK; supple, normal thyroid, RESPIRATORY: Diminished to auscultation CARDIOVASCULAR:? Regular S1 S2, GI:? soft, normoactive bowel sounds, : No Renal angle tenderness; EXTREMITIES:? No edema, no clubbing, MUSCULOSKELETAL:? no muscle wasting NEURO:? ? no lateralizing signs. SKIN:? No Rash PSYCH; flat affect Assessment:? 1.? Transient ischemic attack 2.? Normocytic anemia 3.? Essential hypertension 4.? Dyslipidemia 5.? Chronic kidney disease stage IIIb 6.? Diabetes mellitus type 2 7.? Gout 8.? DVT prophylaxis Recommendations: 1.? I have discussed the results of my overview and impressions with the patient 2.? Options for management were reviewed Total time spent by myself and the advanced practice practitioner evaluating patient, reviewing labs, subsequent management decisions, discussion with patient as well as other providers 40 minutes ( 25 of which was spent by myself) Charges/Coding Visit Charges Inpatient E&M: 46802 Subs Hosp L2
[2022-01-16 11:45] LABS: Bedside Glucose 219 mg/dL (74-106)
[2022-01-16] MEDS: 0.9% Saline Lock 10 ML Syringe IV (12:29)
[2022-01-16] MEDS: Insulin Lispro 100 UNIT/ML INSULN.PEN 18 UNIT SC (17:16)
[2022-01-16 17:50] LABS: Bedside Glucose 282 mg/dL (74-106)
[2022-01-16] MEDS: Acetaminophen 325 MG Tablet 650 MG PO (20:07)
[2022-01-16] MEDS: Insulin Glargine-YFGN 100 UNIT/ML Pen 40 UNIT SC (21:32)
[2022-01-16] MEDS: Atorvastatin Calcium 40 MG Tablet PO ×2 (21:34)
[2022-01-16 22:00] LABS: Bedside Glucose 166 mg/dL (74-106)
--- NOTE | 2022-01-16 23:00 | PCM.CONS.GEN ---
Assessment & Plan Assessment/Plan (1) Anemia: PLAN: The differential diagnosis for iron deficient anemia in the setting of aspirin therapy is peptic ulcer disease, H. pylori, angiodysplasia, telangiectasia, less likely celiac disease. She should undergo an upper endoscopy evaluate upper GI tract. She is currently getting worked up for acute or chronic CVA. I would recommend to hold aspirin for approximately 7 days pending on the work-up for acute CVA. If that is negative then no aspirin for 5 days pending what we find on her upper endoscopy. She was explained alternatives, risk, benefits including not withstanding bleeding, infection, sepsis, perforation, need for emergency to . She will have an ASA of 3 for emergent procedure. HPI Consult Data Date of Consult: 01/16/22 HPI Narrative Reason for Consultation: anemia HPI Narrative: LADI CUELLO, is a 76 F who presents to the ED with confusion. ? She has a history of hypertension, hyperlipidemia, diabetes, chronic kidney disease and syncope.? She did have a an implantable loop recorder placed and she has been doing quite well with no cardiac symptomatology.??She also has a past medical history of iron deficiency anemia. She takes iron on a daily basis. Her hemoglobin has been ranging from 9-11. When she came into the ED hemoglobin was 9.5. It has been slowly dropping down and is currently 8.4. I was consulted for the evaluation of acute anemia possibly secondary to GI blood loss. Her BUN/creatinine ratio was 39:1 0.3. She did admit to occasional dark stools but she does take iron on a daily basis. All other 16 review of systems are negative except observed positive mentioned HPI. [facility] Medical History Adnexal mass Amaurosis fugax of right eye Arthritis Back problem Carpal tunnel syndrome Cataracts, bilateral Chronic kidney disease Closed head injury (12/17/20) Concussion (12/17/20) Controlled type 2 diabetes mellitus with insulin therapy Essential (primary) hypertension GERD (gastroesophageal reflux disease) Goiter Gout History of CVA (cerebrovascular accident) (01/06/20) History of pulmonary embolus (PE) (12/2017) Hyperlipemia IBS (irritable bowel syndrome) Neuropathy Osteoarthritis of right knee Osteoporosis Seasonal allergies 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) Stroke Syncope Thyroid goiter Thyroid nodule Home Medications cholecalciferol (vitamin D3) 25 mcg (1,000 unit) tablet 5,000 unit PO DAILY supplement 02/21/17 [History Last Taken 10/29/17] allopurinol 100 mg tablet 1 tab PO BID gout 08/15/17 [History Last Taken 10/29/17] ferrous sulfate 325 mg (65 mg iron) tablet 325 mg PO DAILY supplement 12/13/17 [History Last Taken Unknown] aspirin 81 mg chewable tablet 81 mg PO BIDCM blood thinner 01/02/18 [History Last Taken Unknown] lisinopril 10 mg tablet 10 mg PO DAILY 06/16/20 [History Last Taken Unknown] sertraline 50 mg tablet 50 mg PO DAILY 06/16/20 [History Last Taken Unknown] atorvastatin 40 mg tablet 40 mg PO QHS 07/15/20 [History Last Taken Unknown] famotidine 40 mg tablet 40 mg PO BID 07/15/20 [History Last Taken Unknown] pregabalin 300 mg capsule 300 mg PO BID 03/02/21 [History Last Taken Unknown] hydrocodone-acetaminophen 5-325mg 5mg-325mg 1 tab PO Q6H PRN PRN Pain 3 days #12 TABLETS 03/18/21 [Rx Last Taken Unknown] insulin detemir U-100 100 unit/mL (3 mL) subcutaneous pen (Levemir FlexTouch U-100 Insulin) 40 unit subcut QHS 04/12/21 [History Last Taken Unknown] insulin lispro 100 unit/mL subcutaneous pen 16 unit SC BREAKFAST 04/12/21 [History Last Taken Unknown] insulin lispro 100 unit/mL subcutaneous pen 16 unit subcut LUNCH 04/12/21 [History Last Taken Unknown] insulin lispro 100 unit/mL subcutaneous pen 18 unit subcut DINNER 04/12/21 [History Last Taken Unknown] docusate sodium 50 mg capsule 50 mg PO DAILY PRN Constipation 01/16/22 [History Last Taken Unknown] Allergy/AdvReac Type Severity Reaction Status Date / Time duloxetine [From Cymbalta] Allergy Unknown Verified 04/12/21 13:55 linagliptin [From Tradjenta] Allergy Hives Verified 04/12/21 13:55 oxycodone [From OxyContin] Allergy Rash Verified 04/12/21 13:55 Family History Unknown Alcoholism Arthritis Asthma Depression Hypertension High cholesterol Kidney disease Severe allergy Diabetes Surgical History H/O tubal ligation History of back surgery History of carpal tunnel release History of cataract surgery History of knee replacement History of loop recorder (12/12/19) History of robot-assisted laparoscopic hysterectomy (10/02/19) History of salpingo-oophorectomy (10/02/19) Hx of appendectomy Hx of cholecystectomy Social History Smoking Status: Never smoker second hand exposure: No alcohol intake: never substance use type: does not use ROS Constitutional Constitutional: Reports fatigue, malaise and weakness; Denies anorexia, chills or fever(s) Eyes Eyes: Denies change in vision ENT HEENT: Denies abnormal hearing, dysphagia, headache(s), hearing loss or sore throat Cardiovascular Cardiovascular: Denies chest pain, dyspnea on exertion, edema, lightheadedness, palpitations, paroxysmal nocturnal dyspnea, rapid heart rate or syncope Respiratory/Chest Respiratory/Chest: Denies cough, dyspnea, productive cough, shortness of breath at rest, shortness of breath with exertion or wheezing Gastrointestinal Gastrointestinal: Denies abdominal pain, constipation, diarrhea, nausea or vomiting Genitourinary Genitourinary: Denies burning urination, dysuria, nocturia, urinary frequency or urinary hesitancy Musculoskeletal Musculoskeletal: Denies arthralgias Neurologic Neurologic: Reports confusion; Denies dizziness, focal weakness, headache(s), numbness, paresthesias, seizure-like activity, seizures or syncope Psychiatric Psychiatric: Denies anxiety or depression Physical Exam Const alert and oriented x3 HEENT normocephalic and moist oral mucous membranes Eyes PERRL, EOMs intact bilaterally and conjunctivae normal Neck no lymphadenopathy Resp normal respiratory effort and clear to auscultation bilaterally Cardio regular rate, regular rhythm and no murmurs Peripheral Pulses: pulses 2+ throughout GI normal to inspection, nondistended, normoactive bowel sounds, non-tender and non-distended Extremity normal to inspection Skin no rashes or lesions noted Lesions: no lesions Rashes: no rashes Trauma: no lacerations or abrasions Neuro CN's II-XII intact bilaterally, no focal motor deficits, no sensory deficits noted and deep tendon reflexes 2+ bilaterally Psych mental status grossly normal and affect normal Lab / Micro Data Result Diagrams: 01/17/22 05:20 01/17/22 05:20 Labs: Laboratory Results - last 24 hr 01/15/22 14:00: Vitamin B12 415 01/16/22 17:14: POC Glucose 282 H 01/16/22 21:29: POC Glucose 166 H 01/17/22 05:20: WBC 4.6, RBC 2.91 L, Hgb 7.5 L, Hct 26.0 L, MCV 89.3, MCH 25.8 L, MCHC 28.8 L, RDW Std Deviation 46.8 H, RDW Coeff of Kenneth 14.6, Plt Count 124 L, MPV 12.4 H, Immature Gran % (Auto) 0.400, Neut % (Auto) 65.4, Lymph % (Auto) 20.9, [place] % (Auto) 7.2, Eos % (Auto) 5.7 H, Baso % (Auto) 0.4, Absolute Neuts (auto) 3.0, Absolute Lymphs (auto) 0.96, Nucleated RBC % 0 01/17/22 05:20: Sodium 141, Potassium 3.6, Chloride 108 H, Carbon Dioxide 25.0, Anion Gap 8, BUN 19 H, Creatinine 1.39 H, Estim Creat Clear Calc 26.39, Est GFR (MDRD) Af Amer 48 L, Est GFR (MDRD) Non-Af 39 L, BUN/Creatinine Ratio 13.7, Glucose 132 H, Calcium 8.4 L 01/17/22 06:22: POC Glucose 135 H Charges/Coding Visit Charges Inpatient E&M: 93325 Init Hosp L2
[2022-01-17] VITALS (17 sets, daily range): BP systolic 100–138; BP diastolic 48–66; PULSE 62–92; RESP 12–20; TEMP 36.2–37.4; O2SAT 91–100; BMI 32.4
[2022-01-17] MEDS: HYDROcodone Bitartrate/Apap 5/325 Tablet PO ×2 (00:13→18:30)
[2022-01-17 05:51] LABS: Absolute Lymphocyte Count 0.96 X10^3/uL (0.83-4.51); Basophil# 0.02 X10^3/uL; Basophil% 0.4 % (0-1); Eosinophil# 0.26 X10^3/uL; Eosinophils% 5.7 % (0-5); Hemoglobin 7.5 g/dL (12.0-15.0); Lymphocyte # 0.96 X10^3/ul (0.83-4.51); Lymphocyte % 20.9 % (19-41); Mean Corp Hgb Conc 28.8 g/dL (32-36); Mean Corpuscular Hgb 25.8 pg (27.0-32.0); Mean Corpuscular Volume 89.3 fL (81-99); Mean Platelet Vol. 12.4 fl (6.2-12.0); Monocyte# 0.33 X10^3/uL; Monocyte% 7.2 % (0-10); NRBC Flagged by Analyzer 0 % (0-5); Neutrophil # 3.01 X10^3/uL (2.7-7.7); Neutrophil % 65.4 % (47-70); Platelet Count 124 K/mm3 (150-450); RBC Distribution Width CV 14.6 % (11.6-14.6); RBC Distribution Width SD 46.8 fl (35.1-43.9); Red Blood Count 2.91 M/mm3 (4.2-5.4); White Blood Count 4.6 K/mm3 (4.4-11.0)
[2022-01-17 06:12] LABS: Anion Gap 8 (5-15); BUN 19 mg/dL (7-18); BUN/Creat Ratio 13.7 RATIO (10-20); Calcium,Total 8.4 mg/dL (8.5-10.1); Chloride 108 mmol/L (98-107); Creatinine, Serum 1.39 mg/dL (0.55-1.02); EST Glomerular Filtration Rate 39 mL/min (>60); Est Glom Filt Rate - Afr Amer 48 mL/min (>60); Estimated Creatinine Clearance 26.39 ml/min; Glucose 132 mg/dL (74-106); Potassium 3.6 mmol/L (3.5-5.1); Sodium Level 141 mmol/L (136-145)
[2022-01-17 07:00] LABS: Bedside Glucose 135 mg/dL (74-106)
[2022-01-17 09:10] LABS: Vitamin B12 415 pg/mL (211-911)
--- NOTE | 2022-01-17 11:04 | CASEMGMT ---
Message from [facility] and they state they cannot accept pt until they now of a d/c date. CM to follow. Jose PANCHAL CM
[2022-01-17] MEDS: Lactated Ringers 1,000 ML 15 ML IV (12:10)
--- NOTE | 2022-01-17 12:30 | IMM_PTH ---
PATIENT: LADI CUELLO LOC: [facility] U#:[id number] AGE/SX: 76/F ROOM: [facility] RE01/17/[address]: Dr. Iesha Garza MD : 1945 BED: 1 DIS: 01/19/2022 SPEC #: [id number] RECD: 01/18/22 09:41 STATUS: SOURamlia REQ #: [id number] RAGHU: 01/17/22 12:[address]: Garrett Avery DEPT: IMMUNOHISTOCHEMISTRY RECD BY: Shantel Mcclain ENTERED: 01/18/22 09:41 SP TYPE: IMMUNO OTHR DR: MD Dr. Sergei Pratt MD Dr. Hannah Miedel, MD Dr. Nana Yaa Koram, MD Tissues: Stomach, NOS Procedures: H Pylori (initial) PHYSICIAN & INSTITUTION [place] [address] SPECIMEN INFORMATION: Tissue Source: Gastric ulcer biopsy Clinical Info: [place] Specimen Number: [id number] CPT code: 87409 METHODOLOGY: Deparaffinized sections of prefer/formalin-fixed tissue or PAP/DQ stained slides are incubated with monoclonal/polyclonal antibodies/oligonucleotide probes. Localization is made via biotin free immunoperoxidase method. Appropriate controls are performed and reacted as expected. Results on target cell population are indicated in the following table: RESULTS: ANTIBODY / CLONE RESULT H Pylori (polyclonal) negative These tests were developed and their performance characteristics determined by [facility]. They may not have been cleared or approved by the U.[place]. Food and Drug Administration. The FDA has determined that such clearance or approval is not necessary. The above immunohistochemical/dualISH markers are ordered and reviewed by the Pathologist. INTERPRETATION: Gastric ulcer, biopsy: Negative for Helicobacter pylori organisms. SJ:chirag 01/19/2022
--- NOTE | 2022-01-17 12:30 | EGD_PTH ---
PATIENT: LADI CUELLO LOC: [facility] U#:[id number] AGE/SX: 76/F ROOM: [facility] RE01/17/[address]: Dr. Iesha Garza MD : 1945 BED: 1 DIS: 01/19/2022 SPEC #: [id number] RECD: 01/17/22 14:27 STATUS: IHSAN RESal #: [id number] RAGHU: 01/17/22 12:[address]: Garrett Avery DEPT: SURGICAL PATHOLOGY RECD BY: Annel Kelly ENTERED: 01/18/22 07:46 SP TYPE: EGD BIOPSY OTHR DR: MD Dr. Sergei Pratt MD Dr. Hannah Miedel, MD Dr. Nana Yaa Koram, MD Tissues: Gastric mucous membrane Procedures: Surgery Specimen Level IV Comments: @ Ordering doctor for SUIV edited from to @ by ARJUN at 01/18/22 0942 @ Submitting doctor edited from to @ by RGOOD at 01/18/2242 HEADER OPERATION: EGD ([facility]), biopsy, electrohemostasis PRE-OP DIAGNOSIS: Anemia TISSUE SUBMITTED: Gastric ulcer biopsy MICROSCOPIC DIAGNOSIS Gastric ulcer, biopsy: Mild gastritis. See microscopic description and comment. ELMO:chirag 01/19/2022 COMMENT The results of immunohistochemistry for Helicobacter pylori will be reported separately ([id number]). MICROSCOPIC DESCRIPTION Slides are reviewed. The specimen shows fragments of gastric mucosa with chronic inflammatory cell infiltrates in the lamina propria consisting of lymphocytes and plasma cells, consistent with mild chronic gastritis. GROSS DESCRIPTION Received in fixative is one container labeled with the patient's name and designated gastric ulcer biopsy. The specimen consists of two irregular fragments of light lambert soft tissue that in aggregate measure 0.8 x 0.4 x 0.1 cm. The specimen is totally submitted in one cassette. / ELMO:chirag 01/18/2022 TC:3 CPT: 36064
--- NOTE | 2022-01-17 13:11 | OP.EGD_ITS ---
Patient Name: Elena Mccabe Procedure Date: 01/17/2022 12:37 PM Date of : 1945 Age: 76 Procedure: Upper GI endoscopy Indications: Iron deficiency anemia Providers: Garrett Avery DO Medicines: Monitored Anesthesia Care Patient Profile: This is a 76 year old female. Refer to note in patient chart for documentation of history and physical. Patient has symptoms of chronic epigastric abdominal pain and acute nausea. Complications: No immediate complications. Procedure: Pre-Anesthesia Assessment: - Prior to the procedure, a History and Physical was performed, and patient medications and allergies were reviewed. The risks and benefits of the procedure and the sedation options and risks were discussed with the patient. All questions were answered and informed consent was obtained. Patient identification and proposed procedure were verified by the physician in the pre-procedure area. Mental Status Examination: alert and oriented. Airway Examination: normal oropharyngeal airway and neck mobility. Respiratory Examination: clear to auscultation. CV Examination: normal. Prophylactic Antibiotics: The patient does not require prophylactic antibiotics. Prior Anticoagulants: The patient has taken no previous anticoagulant or antiplatelet agents. ASA Grade Assessment: III - A patient with severe systemic disease. After reviewing the risks and benefits, the patient was deemed in satisfactory condition to undergo the procedure. The anesthesia plan was to use monitored anesthesia care (MAC). Immediately prior to administration of medications, the patient was re-assessed for adequacy to receive sedatives. The heart rate, respiratory rate, oxygen saturations, blood pressure, adequacy of pulmonary ventilation, and response to care were monitored throughout the procedure. The physical status of the patient was re-assessed after the procedure. After obtaining informed consent, the endoscope was passed under direct vision. Throughout the procedure, the patient's blood pressure, pulse, and oxygen saturations were monitored continuously. The gastroscope was introduced through the mouth, and advanced to the second part of duodenum. The upper GI endoscopy was accomplished without difficulty. The patient tolerated the procedure well. Scope In: 12:46:24 PM Scope Out: 12:59:23 PM Total Procedure Duration Time 0 hours 12 minutes 59 seconds Findings: The examined esophagus was normal. Four oozing cratered gastric ulcers with a visible vessel were found in the gastric antrum. The largest lesion was 6 mm in largest dimension. Coagulation for hemostasis using bipolar probe was successful. Biopsies were taken with a cold forceps for histology. Verification of patient identification for the specimen was done. Estimated blood loss was minimal. The second portion of the duodenum was normal. Impression: - Normal esophagus. - Oozing gastric ulcers with a visible vessel. Treated with bipolar cautery. Biopsied. - Normal second portion of the duodenum. Recommendation: - Discharge patient to home. - Clear liquid diet today. - Use Protonix (pantoprazole) 40 mg IV daily for 4 weeks. - Use sucralfate tablets 1 gram PO QID for 2 weeks. - Continue present medications. Procedure Code(s): --- Professional --- 90499, 59, Esophagogastroduodenoscopy, flexible, transoral; with control of bleeding, any method 36126, 51, Esophagogastroduodenoscopy, flexible, transoral; with biopsy, single or multiple CPT copyright 2017 [employer]. All rights reserved. The codes documented in this report are preliminary and upon clock and watch hands painter review may be revised to meet current compliance requirements. Garrett Avery DO 01/17/2022 1:11:18 PM This report has been signed electronically. Number of Addenda: 0 Note Initiated On: 01/17/2022 12:37 PM
--- NOTE | 2022-01-17 13:12 | OP.CCLET_ITS ---
01/17/2022 Марина Weir [address] [address] Re : Upper GI endoscopy procedure for Elena Mccabe Dear Dr. Weir This procedure was performed on Monday, January 17, 2022. My impressions and recommendations are as follows: Impressions : - Normal esophagus. - Oozing gastric ulcers with a visible vessel. Treated with bipolar cautery. Biopsied. - Normal second portion of the duodenum. Recommendations : - Discharge patient to home. - Clear liquid diet today. - Use Protonix (pantoprazole) 40 mg IV daily for 4 weeks. - Use sucralfate tablets 1 gram PO QID for 2 weeks. - Continue present medications. My findings are described in the full procedure note, which is enclosed. If I can be of further assistance, please feel free to contact me at . Sincerely, Garrett Avery, 01/17/2022 1:11:18 PM This report has been signed electronically.
--- NOTE | 2022-01-17 13:18 | PN.HOSP_ITS ---
Documented by User: Suzanne Mattson NP, SENIOR MILITARY ANALYST-C 01/17/22 13:26 Subjective Subjective Patient seen and examined. Denies new symptoms or complaints. Underwent EGD which demonstrated oozing gastric ulcers treated with cautery. Objective Data Objective Data Vital Signs: Vital Signs Temp Pulse Resp BP Pulse Ox O2 Del Method 99.4 F H 72 14 138/65 H 96 Room Air 01/17/22 13:03 01/17/22 13:15 01/17/22 13:15 01/17/22 13:15 01/17/22 13:15 01/17/22 13:15 Oxygen Delivery Method Room Air Weight: 171 lb 11.841 oz Body Mass Index (BMI) 32.4 Intake & Output: Intake and Output for Last 24 Hours 01/15/22 01/16/22 01/17/22 23:59 23:59 23:59 Intake Total 2982.08 / 3222.08 1110 / 1310 310 / 310 Balance 2982.08 / 3222.08 1110 / 1310 310 / 310 Lab / Micro Data Result Diagrams: 01/17/22 05:20 01/17/22 05:20 Labs: Laboratory Results - last 24 hr 01/15/22 14:00: Vitamin B12 415 01/16/22 17:14: POC Glucose 282 H 01/16/22 21:29: POC Glucose 166 H 01/17/22 05:20: WBC 4.6, RBC 2.91 L, Hgb 7.5 L, Hct 26.0 L, MCV 89.3, MCH 25.8 L , MCHC 28.8 L, RDW Std Deviation 46.8 H, RDW Coeff of Kenneth 14.6, Plt Count 124 L, MPV 12.4 H, Immature Gran % (Auto) 0.400, Neut % (Auto) 65.4, Lymph % (Auto) 20.9, Arroyo % (Auto) 7.2, Eos % (Auto) 5.7 H, Baso % (Auto) 0.4, Absolute Neuts (auto) 3.0, Absolute Lymphs (auto) 0.96, Nucleated RBC % 0 01/17/22 05:20: Sodium 141, Potassium 3.6, Chloride 108 H, Carbon Dioxide 25.0, Anion Gap 8, BUN 19 H, Creatinine 1.39 H, Estim Creat Clear Calc 26.39, Est GFR (MDRD) Af Amer 48 L, Est GFR (MDRD) Non-Af 39 L, BUN/Creatinine Ratio 13.7, Glucose 132 H, Calcium 8.4 L 01/17/22 06:22: POC Glucose 135 H Physical Exam Const alert and oriented x3 HEENT normocephalic Mouth: dry mucous membranes Eyes PERRL, EOMs intact bilaterally and conjunctivae normal Neck no lymphadenopathy Resp normal respiratory effort and clear to auscultation bilaterally Cardio regular rate, regular rhythm and no murmurs Peripheral Pulses: pulses 2+ throughout GI normal to inspection, nondistended, normoactive bowel sounds, non-tender and non-distended Extremity normal to inspection Skin no rashes or lesions noted Lesions: no lesions Rashes: no rashes Trauma: no lacerations or abrasions Neuro CN's II-XII intact bilaterally, no focal motor deficits, no sensory deficits noted and deep tendon reflexes 2+ bilaterally Psych mental status grossly normal and affect normal Assessment & Plan Assessment/Plan (1) Anemia: PLAN: Plan 1. Acute anemia secondary to GI bleed on chronic normocytic anemia-GI consulted. Iron studies with significant iron deficiency. Hemoglobin trended down to 7.5. Patient noted to have borderline low BP. Underwent EGD which demonstrated oozing gastric ulcers with visible vessel treated with bipolar cautery and biopsied. Continue IV PPI. Carafate added. Plan to monitor overnight and repeat CBC in a.m. 2. Weakness, speech changes- CVA ruled out. Hx prior CVA.? MRI without infarct.? MRA normal.? Echo with EF 55%.? PT/OT.? Continue statin. Aspirin on hold secondary to #1. Weakness likely secondary to #1 complicated by underlying history of prior CVA. 3. Hypertension-stable, continue home regimen. 4. Hyperlipidemia-continue statin. 5. Type 2 diabetes [id number]-[id number]-[id number] with sliding scale insulin.? Continue home insulin regimen. 6. Chronic kidney disease stage IIIb- appears at baseline. Trend BMP. 7. History of gout-on allopurinol. DVT prophylaxis-SCDs This patient was seen by ANA Whitmore under the supervision of Dr. Garza. Time spent examining patient, reviewing data and subsequent management of care: 15 minutes Documented by User: Dr. Iesha Garza MD 01/17/22 17:07 Objective Data Lab / Micro Data Result Diagrams: 01/17/22 05:20 01/17/22 05:20 Assessment & Plan Assessment/Plan (1) Anemia: Charges/Coding Addendum Addendum: This patient was seen in conjunction with Suzanne Mattson NP. I have independ ently interviewed and examined the patient and reviewed pertinent historical, laboratory, and other data. I have reviewed her note and concur with her documentation Patient was seen and examined. She underwent EGD today and findings showed oozing gastric ulcers with a visible vessel, treated with bipolar cautery. Denied any dizziness or palpitations. Physical Exam: Gen: Comfortable, not pale, not jaundiced CVS:HS I +II, regular, no murmurs RESP: Diminished at lung bases GI: BS present and normal, soft, nontender, no palpable organs EXT:No edema ASSESSMENT: 1. Acute blood loss anemia secondary to acute GI bleed 2. Debility 3. Hypertension 4. Hyperlipidemia 5. Type II DM 6. CKD stage IIIb 7. History of gout Plan: Continue IV PPI, sucrafate IV Venofer x2 days Reevaluate with repeat blood work in a.m. for possible discharge Time spent reviewing patient's medical chart, coordinating all aspects of patient's care, discussing with nursin minutes Visit Charges Inpatient E&M: 14155 Subs Hosp L2
[2022-01-17] MEDS: 0.9% Saline Lock 10 ML Syringe IV (13:51)
[2022-01-17] MEDS: Docusate Sodium 100 MG Capsule PO ×2 (15:49→22:05)
[2022-01-17] MEDS: Pregabalin 75 MG Capsule 300 MG PO ×2 (15:49→22:04)
[2022-01-17] MEDS: Ferrous Sulfate 325 MG Tablet PO (15:49)
[2022-01-17] MEDS: Sucralfate 1 GM Tablet PO (15:49)
[2022-01-17] MEDS: Allopurinol 100 MG Tablet PO ×2 (15:50→22:05)
[2022-01-17] MEDS: Cholecalciferol (Vit D3) 125 MCG CAPSULE (5,000 UNITS) PO (15:50)
[2022-01-17] MEDS: Lisinopril 10 MG Tablet PO (15:50)
[2022-01-17] MEDS: Sertraline 50 MG Tablet PO (15:50)
[2022-01-17] MEDS: 0.9% Normal Saline 1,000 ML 75 ML IV (17:15)
[2022-01-17 17:45] LABS: Bedside Glucose 166 mg/dL (74-106)
[2022-01-17] MEDS: Insulin Lispro 100 UNIT/ML INSULN.PEN SC (18:32)
[2022-01-17] MEDS: Insulin Lispro 100 UNIT/ML INSULN.PEN 18 UNIT SC (18:32)
[2022-01-17 22:15] LABS: Bedside Glucose 111 mg/dL (74-106)
[2022-01-18] VITALS (13 sets, daily range): BP systolic 119–148; BP diastolic 48–61; PULSE 66–84; RESP 20; TEMP 36.1–37.2; O2SAT 88–99; BMI 32.4
[2022-01-18] MEDS: Sucralfate 1 GM Tablet PO ×3 (05:54→17:09)
[2022-01-18] MEDS: 0.9% Normal Saline 1,000 ML 75 ML IV ×2 (05:54→21:18)
[2022-01-18 06:30] LABS: Bedside Glucose 131 mg/dL (74-106)
[2022-01-18 07:00] LABS: Absolute Lymphocyte Count 1.15 X10^3/uL (0.83-4.51); Absolute Neutrophil Count 3.9 X10^3/uL (2.0-7.7); Basophil# 0.01 X10^3/uL; Basophil% 0.2 % (0-1); Eosinophil# 0.14 X10^3/uL; Eosinophils% 2.5 % (0-5); Hematocrit 29.8 % (37-47); Hemoglobin 8.8 g/dL (12.0-15.0); Lymphocyte # 1.15 X10^3/ul (0.83-4.51); Lymphocyte % 20.5 % (19-41); Mean Corp Hgb Conc 29.5 g/dL (32-36); Mean Corpuscular Hgb 26.7 pg (27.0-32.0); Mean Corpuscular Volume 90.6 fL (81-99); Mean Platelet Vol. 12.2 fl (6.2-12.0); Monocyte# 0.39 X10^3/uL; NRBC Flagged by Analyzer 0 % (0-5); Neutrophil % 69.4 % (47-70); Platelet Count 120 K/mm3 (150-450); RBC Distribution Width CV 15.2 % (11.6-14.6); RBC Distribution Width SD 49.7 fl (35.1-43.9); Red Blood Count 3.29 M/mm3 (4.2-5.4); White Blood Count 5.6 K/mm3 (4.4-11.0)
[2022-01-18 07:32] LABS: Anion Gap 8 (5-15); BUN 19 mg/dL (7-18); BUN/Creat Ratio 13.3 RATIO (10-20); Calcium,Total 8.5 mg/dL (8.5-10.1); Chloride 108 mmol/L (98-107); Creatinine, Serum 1.43 mg/dL (0.55-1.02); EST Glomerular Filtration Rate 38 mL/min (>60); Est Glom Filt Rate - Afr Amer 46 mL/min (>60); Estimated Creatinine Clearance 25.65 ml/min; Glucose 141 mg/dL (74-106); Potassium 4.5 mmol/L (3.5-5.1); Sodium Level 140 mmol/L (136-145)
[2022-01-18 08:20] LABS: Bedside Glucose 137 mg/dL (74-106)
[2022-01-18] MEDS: Sodium Ferric Gluconat 250 MG in 0.9% Normal Saline 250 ML 135 MG IV (08:52)
--- NOTE | 2022-01-18 09:27 | CASEMGMT ---
SW did not complete a PHQ 9 as per Nurse Practitioner patient did not have a Stroke or TIA. Cheri PITTS
--- NOTE | 2022-01-18 11:10 | CASEMGMT ---
ANSLEY HUNTER in to discuss discharge planning with patient. Patient states she already has a nurse visiting her once a week to setup medication. Patient states HHC is through [facility]. Patient requesting PT/OT be added when she returns home. ANSLEY HUNTER updated CM S. Desiree regarding resumption of [facility] for chcf with PT and OT added. CM will continue to follow this patient and plan for a safe discharge.
[2022-01-18] MEDS: Docusate Sodium 100 MG Capsule PO ×2 (11:12→21:17)
[2022-01-18] MEDS: Lisinopril 10 MG Tablet PO (11:12)
[2022-01-18] MEDS: Ferrous Sulfate 325 MG Tablet PO (11:12)
[2022-01-18] MEDS: Acetaminophen 325 MG Tablet 650 MG PO ×2 (11:12→17:13)
[2022-01-18] MEDS: Sertraline 50 MG Tablet PO (11:12)
--- NOTE | 2022-01-18 11:48 | CASEMGMT ---
Addendum entered by Marilynn Ramírez 01/18/22 15:02: Trice now states that pt has a nurse through her medicaid, not her Medicare and that pt would need a new order faxed. Trice states that they have trouble reaching pt and is unsure if pt is homebound. This RN CM to speak with pt and pt states that she only goes out once/week and that she would like [facility] SN, PT/OT still. Trice updated and is willing to take pt. Order changed from [facility] to new order for SN, PT/OT and faxed to [facility]. D/C summary/instructions to be faxed once obtained. Pt voices no further questions/concerns/needs. Jose PNACHAL CM Addendum entered by Marilynn Ramírez 01/18/22 13:53: Per Trice at [facility], pt is active with them for SN and Trice aware [facility] order to be faxed and PT/OT also added, voices understanding. [facility] order placed and clinicals faxed. Jose PANCHAL CM Original Note: Per Latonya PANCHAL CM, pt states is active with [facility] for SN. Message left with [facility] intake and Trice at local [facility] to see if pt is active. CM to follow. Jose PANCHAL CM
[2022-01-18 11:50] LABS: Bedside Glucose 121 mg/dL (74-106)
[2022-01-18] MEDS: Cholecalciferol (Vit D3) 125 MCG CAPSULE (5,000 UNITS) PO (12:56)
[2022-01-18] MEDS: Allopurinol 100 MG Tablet PO ×2 (12:56→21:16)
--- NOTE | 2022-01-18 13:17 | PCM.PN.HOSP ---
Documented by User: Suzanne Mattson NP, CONSUMER SALES REPRESENTATIVE-C 01/18/22 13:23 Subjective Subjective Patient seen and examined. Drowsy this morning. Improving throughout the day. Will monitor overnight. Hemoglobin stable. Objective Data Objective Data Vital Signs: Vital Signs Temp Pulse Resp BP Pulse Ox O2 Del Method O2 Flow Rate 97.6 F L 84 20 H 134/54 H 95 Nasal Cannula 3 01/18/22 09:10 01/18/22 09:10 01/18/22 09:10 01/18/22 09:10 01/18/22 10:03 01/18/22 10:03 01/18/22 10:03 Oxygen Flow Rate (L/min) 3 Oxygen Delivery Method Nasal Cannula Weight: 171 lb 11.841 oz Body Mass Index (BMI) 32.4 Intake & Output: Intake and Output for Last 24 Hours 01/16/22 01/17/22 01/18/22 23:59 23:59 23:59 Intake Total 1110 / 1310 1580 / 1780 2042.50 / 2042.50 Balance 1110 / 1310 1580 / 1780 2042.50 / 2042.50 Lab / Micro Data Result Diagrams: 01/18/22 06:45 01/18/22 06:45 Labs: Laboratory Results - last 24 hr 01/17/22 15:58: POC Glucose 166 H 01/17/22 21:50: POC Glucose 111 H 01/18/22 06:03: POC Glucose 131 H 01/18/22 06:45: WBC 5.6, RBC 3.29 L, Hgb 8.8 L, Hct 29.8 L, MCV 90.6, MCH 26.7 L, MCHC 29.5 L, RDW Std Deviation 49.7 H, RDW Coeff of Kenneth 15.2 H, Plt Count 120 L, MPV 12.2 H, Immature Gran % (Auto) 0.400, Neut % (Auto) 69.4, Lymph % (Auto) 20.5, Waller % (Auto) 7.0, Eos % (Auto) 2.5, Baso % (Auto) 0.2, Absolute Neuts (auto) 3.9, Absolute Lymphs (auto) 1.15, Nucleated RBC % 0 01/18/22 06:45: Sodium 140, Potassium 4.5, Chloride 108 H, Carbon Dioxide 24.0, Anion Gap 8, BUN 19 H, Creatinine 1.43 H, Estim Creat Clear Calc 25.65, Est GFR (MDRD) Af Amer 46 L, Est GFR (MDRD) Non-Af 38 L, BUN/Creatinine Ratio 13.3, Glucose 141 H, Calcium 8.5 01/18/22 07:53: POC Glucose 137 H 01/18/22 11:03: POC Glucose 121 H Physical Exam Const Constitutional Narrative: Drowsy HEENT normocephalic and moist oral mucous membranes Eyes PERRL, EOMs intact bilaterally and conjunctivae normal Neck no lymphadenopathy Resp normal respiratory effort and clear to auscultation bilaterally Cardio regular rate, regular rhythm and no murmurs Peripheral Pulses: pulses 2+ throughout GI normal to inspection, nondistended, normoactive bowel sounds, non-tender and non-distended Extremity normal to inspection Skin no rashes or lesions noted Lesions: no lesions Rashes: no rashes Trauma: no lacerations or abrasions Neuro CN's II-XII intact bilaterally, no focal motor deficits, no sensory deficits noted and deep tendon reflexes 2+ bilaterally Psych mental status grossly normal and affect normal Assessment & Plan Assessment/Plan (1) Anemia: PLAN: Plan 1. Acute anemia secondary to GI bleed on chronic normocytic anemia-GI consulted.? Iron studies with significant iron deficiency.? Underwent EGD which demonstrated oozing gastric ulcers with visible vessel treated with bipolar cautery and biopsied.? Continue IV PPI.? Carafate added.? Trend CBC. 2. Weakness, speech changes- CVA ruled out. Hx prior CVA.? MRI without infarct.? MRA normal.? Echo with EF 55%.? PT/OT.? Continue statin.? Aspirin on hold secondary to #1.? Weakness likely secondary to #1 complicated by underlying history of prior CVA. 3. Hypertension-stable, continue home regimen. 4. Hyperlipidemia-continue statin. 5. Type 2 diabetes fiacuzta-Jmqn-Rhxnz with sliding scale insulin.? Continue home insulin regimen. 6. Chronic kidney disease stage IIIb- appears at baseline. Trend BMP. 7. History of gout-on allopurinol. 8. Metabolic encephalopathy-improving throughout the day. Hold sedating regimen. Monitor overnight. Hold off on ABG as patient is improving. DVT prophylaxis-SCDs This patient was seen by Suzanne Srinivasan, CONSUMER SALES REPRESENTATIVE-C under the supervision of Dr. Garza. Time spent examining patient, reviewing data and subsequent management of care: 12 minutes Documented by User: Dr. Iesha Garza MD 01/18/22 15:05 Objective Data Lab / Micro Data Result Diagrams: 01/18/22 06:45 01/18/22 06:45 Assessment & Plan Assessment/Plan (1) Anemia: Charges/Coding Addendum Addendum: This patient was seen in conjunction with Suzanne Mattson NP.? I have independently interviewed and examined the patient and reviewed pertinent historical, laboratory, and other data. I have reviewed her note and concur with her documentation Patient was seen and examined. She was very lethargic this morning. No sedating medication was given this morning. As the day went on, she appeared to be easily arousable. Denies any new complaints. Physical Exam: Gen: Comfortable, not pale, not jaundiced CVS:HS I +II, regular, no murmurs RESP: Diminished at lung bases GI: BS present and normal, soft, nontender, no palpable organs EXT:No edema ASSESSMENT: 1.? Acute blood loss anemia secondary to acute GI bleed 2.? Debility 3.? Hypertension 4.? Hyperlipidemia 5.? Type II DM 6.? CKD stage IIIb 7.? History of gout Plan: Continue IV PPI, sucrafate Completed IV Venofer Repeat blood work in a.m. Possible discharge in a.m. Time spent reviewing patient's medical chart, coordinating all aspects of patient's care, discussing with nursin minutes Visit Charges Inpatient E&M: 26266 Subs Hosp L2
[2022-01-18] MEDS: Insulin Lispro 100 UNIT/ML INSULN.PEN 18 UNIT SC (17:12)
[2022-01-18] MEDS: Insulin Lispro 100 UNIT/ML INSULN.PEN SC (17:12)
[2022-01-18 17:35] LABS: Bedside Glucose 190 mg/dL (74-106)
[2022-01-18] MEDS: Atorvastatin Calcium 40 MG Tablet PO (21:17)
[2022-01-18 22:05] LABS: Bedside Glucose 113 mg/dL (74-106)
[2022-01-19] VITALS (11 sets, daily range): BP systolic 131–162; BP diastolic 43–65; PULSE 64–81; RESP 16–20; TEMP 36.1–37.2; O2SAT 92–100
[2022-01-19] MEDS: HYDROcodone Bitartrate/Apap 5/325 Tablet PO ×2 (00:43→11:34)
[2022-01-19] MEDS: Acetaminophen 325 MG Tablet 650 MG PO (03:17)
[2022-01-19] MEDS: Insulin Lispro 100 UNIT/ML INSULN.PEN SC ×2 (06:09→11:33)
[2022-01-19] MEDS: Sucralfate 1 GM Tablet PO ×3 (06:11→15:12)
[2022-01-19 06:34] LABS: Absolute Lymphocyte Count 0.63 X10^3/uL (0.83-4.51); Absolute Neutrophil Count 3.6 X10^3/uL (2.0-7.7); Basophil# 0.01 X10^3/uL; Basophil% 0.2 % (0-1); Differential Indicated SCAN CRITERIA MET; Eosinophil# 0.15 X10^3/uL; Eosinophils% 3.2 % (0-5); Hematocrit 24.8 % (37-47); Hemoglobin 7.1 g/dL (12.0-15.0); Lymphocyte # 0.63 X10^3/ul (0.83-4.51); Lymphocyte % 13.2 % (19-41); Mean Corp Hgb Conc 28.6 g/dL (32-36); Mean Corpuscular Volume 90.8 fL (81-99); Monocyte# 0.39 X10^3/uL; Monocyte% 8.2 % (0-10); NRBC Flagged by Analyzer 0 % (0-5); Neutrophil # 3.56 X10^3/uL (2.7-7.7); Neutrophil % 74.8 % (47-70); POSITIVE COUNT YES; Platelet Count 95 K/mm3 (150-450); RBC Distribution Width CV 15.1 % (11.6-14.6); RBC Distribution Width SD 48.9 fl (35.1-43.9); Red Blood Count 2.73 M/mm3 (4.2-5.4); White Blood Count 4.8 K/mm3 (4.4-11.0)
[2022-01-19 06:36] LABS: Bedside Glucose 209 mg/dL (74-106)
[2022-01-19 06:50] LABS: Differential Comment SCANNED; Platelet Estimate SLT DEC (ADEQ)
[2022-01-19 07:04] LABS: Anion Gap 7 (5-15); BUN 19 mg/dL (7-18); BUN/Creat Ratio 15.6 RATIO (10-20); Calcium,Total 8.2 mg/dL (8.5-10.1); Chloride 110 mmol/L (98-107); Creatinine, Serum 1.22 mg/dL (0.55-1.02); EST Glomerular Filtration Rate 46 mL/min (>60); Est Glom Filt Rate - Afr Amer 55 mL/min (>60); Estimated Creatinine Clearance 30.07 ml/min; Glucose 213 mg/dL (74-106); Potassium 4.2 mmol/L (3.5-5.1); Sodium Level 141 mmol/L (136-145)
[2022-01-19] MEDS: Ferrous Sulfate 325 MG Tablet PO (08:12)
[2022-01-19] MEDS: Lisinopril 10 MG Tablet PO (08:12)
[2022-01-19] MEDS: Allopurinol 100 MG Tablet PO (08:12)
[2022-01-19] MEDS: Cholecalciferol (Vit D3) 125 MCG CAPSULE (5,000 UNITS) PO ×2 (08:12)
[2022-01-19] MEDS: Sertraline 50 MG Tablet PO (08:12)
[2022-01-19] MEDS: Docusate Sodium 100 MG Capsule PO (08:12)
[2022-01-19 08:51] LABS: Bedside Glucose 144 mg/dL (74-106)
[2022-01-19] MEDS: Insulin Lispro 100 UNIT/ML INSULN.PEN 16 UNIT SC (11:34)
[2022-01-19 12:10] LABS: Bedside Glucose 207 mg/dL (74-106)
--- NOTE | 2022-01-19 13:02 | PCM.DC ---
Discharge Instructions Diet Discharge Diet: Light diet - advance as tolerated Activity Discharge Activity: Return to Normal Activity Dressing / Incision Call your doctor if you observe: Shortness of breath, Dizziness and Chest pain Follow Up Care Test Results: Test results from this visit will be discussed in further detail at your follow-up appointment, if applicable. Discharge Plan Admission Admit Date/Time: 01/17/22 13:21 Primary Reason for Your Visit: Anemia, weakness Attending Provider: Iesha Garza Primary Care Provider: Марина Weir Consulting Providers: Archana Umana ; Sergei Wan Discharge Orders/Prescriptions Prescriptions: New sucralfate 1 gram Tablet 1 g PO TIDAC 30 Days Qty: 90 0RF pantoprazole [Protonix] 40 mg tablet,delayed release (DR/EC) 40 mg PO DAILY Qty: 60 0RF Continued allopurinol 100 mg tablet 1 tab PO BID lisinopril 10 mg tablet 10 mg PO DAILY sertraline 50 mg tablet 50 mg PO DAILY cholecalciferol (vitamin D3) 1,000 UNIT tablet 5,000 unit PO DAILY ferrous sulfate 325 MG tablet 325 mg PO DAILY atorvastatin 40 MG tablet 40 mg PO QHS famotidine 40 MG tablet 40 mg PO BID pregabalin 300 mg capsule 300 mg PO BID hydrocodone-acetaminophen 5-325 mg tablet 1 tab PO Q6H PRN PRN (Reason: Pain) 3 Days Qty: 12 0RF insulin lispro 100 unit/mL insulin pen 16 unit SUBCUT LUNCH insulin lispro 100 unit/mL insulin pen 18 unit SUBCUT DINNER Levemir FlexTouch U-100 Insuln 100 unit/mL (3 mL) insulin pen 40 unit SUBCUT QHS insulin lispro 100 UNIT/ML insulin pen 16 unit SC BREAKFAST docusate sodium 50 mg Capsule 50 mg PO DAILY PRN (Reason: Constipation) Held aspirin 81 MG tablet,chewable 81 mg PO BIDCM Hold Instructions: Resume on 01/24/22. Referrals / Follow Up: Марина Weir MD [Primary Care Provider] - In 1 Week Ewelina Heart NP, MANAGER GAME-C [Med Staff - [facility] Practice Prof] - 03/23/22 10:00 am Disposition Disposition (needs filled in before D/C Order can be placed): Home, Self Care
--- NOTE | 2022-01-19 13:08 | PCM.DC.SUM ---
Documented by User: Suzanne Mattson NP, DRESS MARKER-C 01/19/22 13:26 Providers Date of Admission: 01/17/22 Date of Discharge: 01/19/22 Primary Care Physician: Dr. Марина Weir MD Consultations 01/16/22 08:36 Consult: Gastroenterology Routine Consulting Provider: [facility] Reason for Consult: Anemia EMERGENT Consult: No MD Notified: Yes Date Notified: 01/16/22 Time Notified: 08:52 Method of Notification: Text Reason For Visit: WEAKNESS AND SLURRED SPEACH Diagnosis Discharge Diagnosis (1) Anemia: Status: Acute Code(s): D64.9 - Anemia, unspecified Medications at Discharge Home Medications cholecalciferol (vitamin D3) 25 mcg (1,000 unit) tablet 5,000 unit PO DAILY supplement 02/21/17 allopurinol 100 mg tablet 1 tab PO BID gout 08/15/17 ferrous sulfate 325 mg (65 mg iron) tablet 325 mg PO DAILY supplement 12/13/17 aspirin 81 mg chewable tablet 81 mg PO BIDCM blood thinner 01/02/18 lisinopril 10 mg tablet 10 mg PO DAILY 06/16/20 sertraline 50 mg tablet 50 mg PO DAILY 06/16/20 atorvastatin 40 mg tablet 40 mg PO QHS 07/15/20 famotidine 40 mg tablet 40 mg PO BID 07/15/20 pregabalin 300 mg capsule 300 mg PO BID 03/02/21 hydrocodone-acetaminophen 5-325mg 5mg-325mg 1 tab PO Q6H PRN PRN Pain 3 days #12 TABLETS 03/18/21 insulin detemir U-100 100 unit/mL (3 mL) subcutaneous pen (Levemir FlexTouch U-100 Insulin) 40 unit subcut QHS 04/12/21 insulin lispro 100 unit/mL subcutaneous pen 16 unit SC BREAKFAST 04/12/21 insulin lispro 100 unit/mL subcutaneous pen 16 unit subcut LUNCH 04/12/21 insulin lispro 100 unit/mL subcutaneous pen 18 unit subcut DINNER 04/12/21 docusate sodium 50 mg capsule 50 mg PO DAILY PRN Constipation 01/16/22 pantoprazole 40 mg tablet,delayed release (Protonix) 40 mg PO DAILY #60 tabs 01/19/22 sucralfate 1 gram tablet 1 g PO TIDAC 30 days #90 tabs 01/19/22 Hospital Course Operations None Procedures 2-D Echocardiogram and EGD Summary of Care Provided Hospital Course: Patient is a 76-year-old female admitted 01/14/2022 due to confusion and slurred speech. 1. Acute anemia secondary to GI bleed on chronic normocytic anemia-GI consulted during admission.? Iron studies with significant iron deficiency.? Underwent EGD which demonstrated oozing gastric ulcers with visible vessel treated with bipolar cautery and biopsied.? Continue PPI, Carafate. Status post 1 unit PRBC. Follow-up with GI and PCP at discharge. 2. Weakness, speech changes- CVA ruled out. Hx prior CVA.? MRI without infarct.? MRA normal.? Echo with EF 55%.?Continue statin.? Aspirin on hold for 5 days.? Weakness likely secondary to #1 complicated by underlying history of prior CVA. 3. Hypertension-stable, continue home regimen. 4. Hyperlipidemia-continue statin. 5. Type 2 diabetes mellitus-Continue home insulin regimen. 6. Chronic kidney disease stage IIIb- appears at baseline. 7. History of gout-on allopurinol. 8.? Encephalopathy-likely related to anesthesia. Resolved. Physical Exam Const Constitutional Narrative: Drowsy HEENT normocephalic and moist oral mucous membranes Eyes PERRL, EOMs intact bilaterally and conjunctivae normal Neck no lymphadenopathy Resp normal respiratory effort and clear to auscultation bilaterally Cardio regular rate, regular rhythm and no murmurs Peripheral Pulses: pulses 2+ throughout GI normal to inspection, nondistended, normoactive bowel sounds, non-tender and non-distended Extremity normal to inspection Skin no rashes or lesions noted Lesions: no lesions Rashes: no rashes Trauma: no lacerations or abrasions Neuro CN's II-XII intact bilaterally, no focal motor deficits, no sensory deficits noted and deep tendon reflexes 2+ bilaterally Psych mental status grossly normal and affect normal Patient seen and examined prior to discharge. Physical assessment as noted above. Patient is stable for discharge with follow up recommendations as noted above. This patient was seen by ANA Whitmore under the supervision of Dr. Graza. Time spent examining patient, reviewing data and subsequent management of care: 24 minutes Weight / BMI Weight Weight: 171 lb 11.841 oz Body Mass Index (BMI) 32.4 ABG / Lab / Microbiology Data Result Diagrams: 01/19/22 05:35 01/19/22 05:35 Laboratory: Laboratory Results - last 24 hr 01/18/22 17:11: POC Glucose 190 H 01/18/22 21:15: POC Glucose 113 H 01/19/22 05:35: WBC 4.8, RBC 2.73 L, Hgb 7.1 L, Hct 24.8 L, MCV 90.8, MCH 26.0 L, MCHC 28.6 L, RDW Std Deviation 48.9 H, RDW Coeff of Kenneth 15.1 H, Plt Count 95 L, MPV 13.0 H, Immature Gran % (Auto) 0.400, Neut % (Auto) 74.8 H, Lymph % (Auto) 13.2 L, [place] % (Auto) 8.2, Eos % (Auto) 3.2, Baso % (Auto) 0.2, Absolute Neuts (auto) 3.6, Absolute Lymphs (auto) 0.63 L, Nucleated RBC % 0, Differential Comment SCANNED, Platelet Estimate SLT DEC 01/19/22 05:35: Sodium 141, Potassium 4.2, Chloride 110 H, Carbon Dioxide 24.0, Anion Gap 7, BUN 19 H, Creatinine 1.22 H, Estim Creat Clear Calc 30.07, Est GFR (MDRD) Af Amer 55 L, Est GFR (MDRD) Non-Af 46 L, BUN/Creatinine Ratio 15.6, Glucose 213 H, Calcium 8.2 L 01/19/22 06:08: POC Glucose 209 H 01/19/22 08:03: Blood Type A POSITIVE, Antibody Screen NEGATIVE, Crossmatch See Detail 01/19/22 08:05: POC Glucose 144 H 01/19/22 11:32: POC Glucose 207 H Microbiology: Microbiology 01/18/22 21:02 Stool Stool Occult Blood (TOMÁS) - Final Occult Blood Positive D/C Instructions Discharge Diet: Light diet - advance as tolerated Call your doctor if you observe: Shortness of breath, Dizziness and Chest pain Meaningful Use Info Meaningful Use Diagnoses (Choose all that apply): None applicable Discharge Plan Admission Admit Date/Time: 01/17/22 13:21 Primary Reason for Your Visit: Anemia, weakness Attending Provider: Iesha Garza Primary Care Provider: Марина Weir Consulting Providers: Archana Umana ; Sergei Wan Discharge Orders/Prescriptions Prescriptions: New sucralfate 1 gram Tablet 1 g PO TIDAC 30 Days Qty: 90 0RF pantoprazole [Protonix] 40 mg tablet,delayed release (DR/EC) 40 mg PO DAILY Qty: 60 0RF Continued allopurinol 100 mg tablet 1 tab PO BID lisinopril 10 mg tablet 10 mg PO DAILY sertraline 50 mg tablet 50 mg PO DAILY cholecalciferol (vitamin D3) 1,000 UNIT tablet 5,000 unit PO DAILY ferrous sulfate 325 MG tablet 325 mg PO DAILY atorvastatin 40 MG tablet 40 mg PO QHS famotidine 40 MG tablet 40 mg PO BID pregabalin 300 mg capsule 300 mg PO BID hydrocodone-acetaminophen 5-325 mg tablet 1 tab PO Q6H PRN PRN (Reason: Pain) 3 Days Qty: 12 0RF insulin lispro 100 unit/mL insulin pen 16 unit SUBCUT LUNCH insulin lispro 100 unit/mL insulin pen 18 unit SUBCUT DINNER Levemir FlexTouch U-100 Insuln 100 unit/mL (3 mL) insulin pen 40 unit SUBCUT QHS insulin lispro 100 UNIT/ML insulin pen 16 unit SC BREAKFAST docusate sodium 50 mg Capsule 50 mg PO DAILY PRN (Reason: Constipation) Held aspirin 81 MG tablet,chewable 81 mg PO BIDCM Hold Instructions: Resume on 01/24/22. Referrals / Follow Up: Марина Weir MD [Primary Care Provider] - 01/27/22 9:40 am Ewelina Heart NP, DRESS MARKER-C [Med Staff - [facility]] - 03/23/22 10:00 am Disposition Disposition (needs filled in before D/C Order can be placed): Home, Self Care Documented by User: Dr. Iesha Garza MD 01/19/22 14:27 Providers Date of Admission: 01/17/22 Reason For Visit: WEAKNESS AND SLURRED SPEACH Diagnosis Discharge Diagnosis (1) Anemia: Status: Acute Code(s): D64.9 - Anemia, unspecified Medications at Discharge Home Medications cholecalciferol (vitamin D3) 25 mcg (1,000 unit) tablet 5,000 unit PO DAILY supplement 02/21/17 allopurinol 100 mg tablet 1 tab PO BID gout 08/15/17 ferrous sulfate 325 mg (65 mg iron) tablet 325 mg PO DAILY supplement 12/13/17 aspirin 81 mg chewable tablet 81 mg PO BIDCM blood thinner 01/02/18 lisinopril 10 mg tablet 10 mg PO DAILY 06/16/20 sertraline 50 mg tablet 50 mg PO DAILY 06/16/20 atorvastatin 40 mg tablet 40 mg PO QHS 07/15/20 famotidine 40 mg tablet 40 mg PO BID 07/15/20 pregabalin 300 mg capsule 300 mg PO BID 03/02/21 hydrocodone-acetaminophen 5-325mg 5mg-325mg 1 tab PO Q6H PRN PRN Pain 3 days #12 TABLETS 03/18/21 insulin detemir U-100 100 unit/mL (3 mL) subcutaneous pen (Levemir FlexTouch U-100 Insulin) 40 unit subcut QHS 04/12/21 insulin lispro 100 unit/mL subcutaneous pen 16 unit SC BREAKFAST 04/12/21 insulin lispro 100 unit/mL subcutaneous pen 16 unit subcut LUNCH 04/12/21 insulin lispro 100 unit/mL subcutaneous pen 18 unit subcut DINNER 04/12/21 docusate sodium 50 mg capsule 50 mg PO DAILY PRN Constipation 01/16/22 pantoprazole 40 mg tablet,delayed release (Protonix) 40 mg PO DAILY #60 tabs 01/19/22 sucralfate 1 gram tablet 1 g PO TIDAC 30 days #90 tabs 01/19/22 ABG / Lab / Microbiology Data Result Diagrams: 01/19/22 05:35 01/19/22 05:35 Discharge Plan Admission Admit Date/Time: 01/17/22 13:21 Primary Reason for Your Visit: Anemia, weakness Attending Provider: Iesha Garza Primary Care Provider: Марина Weir Consulting Providers: Archana Umana ; Sergei Wan Discharge Orders/Prescriptions Prescriptions: New sucralfate 1 gram Tablet 1 g PO TIDAC 30 Days Qty: 90 0RF pantoprazole [Protonix] 40 mg tablet,delayed release (DR/EC) 40 mg PO DAILY Qty: 60 0RF Continued allopurinol 100 mg tablet 1 tab PO BID lisinopril 10 mg tablet 10 mg PO DAILY sertraline 50 mg tablet 50 mg PO DAILY cholecalciferol (vitamin D3) 1,000 UNIT tablet 5,000 unit PO DAILY ferrous sulfate 325 MG tablet 325 mg PO DAILY atorvastatin 40 MG tablet 40 mg PO QHS famotidine 40 MG tablet 40 mg PO BID pregabalin 300 mg capsule 300 mg PO BID hydrocodone-acetaminophen 5-325 mg tablet 1 tab PO Q6H PRN PRN (Reason: Pain) 3 Days Qty: 12 0RF insulin lispro 100 unit/mL insulin pen 16 unit SUBCUT LUNCH insulin lispro 100 unit/mL insulin pen 18 unit SUBCUT DINNER Levemir FlexTouch U-100 Insuln 100 unit/mL (3 mL) insulin pen 40 unit SUBCUT QHS insulin lispro 100 UNIT/ML insulin pen 16 unit SC BREAKFAST docusate sodium 50 mg Capsule 50 mg PO DAILY PRN (Reason: Constipation) Held aspirin 81 MG tablet,chewable 81 mg PO BIDCM Hold Instructions: Resume on 01/24/22. Referrals / Follow Up: Марина Weir MD [Primary Care Provider] - 01/27/22 9:40 am Ewelina Heart NP, DRESS MARKER-C [Med Staff - [facility]] - 03/23/22 10:00 am Disposition Disposition (needs filled in before D/C Order can be placed): Home, Self Care Charges/Coding Addendum Addendum: This patient was seen in conjunction with Suzanne Mattson NP.? I have independently interviewed and examined the patient and reviewed pertinent historical, laboratory, and other data. I have reviewed her note and concur with her documentation 76-year-old female who presented to the emergency room with confusion and slurring of her speech. Patient lives alone and has been having frequent falls. In the emergency department, her vitals were stable. Hemoglobin was 8.5. CT of the brain showed chronic involuntary changes. She was admitted for acute stroke work-up. MRI of the brain was unremarkable. Repeat globin 7.8. Iron studies revealed iron deficiency anemia. GI was consulted. Patient underwent EGD on 01/17/2022. Findings showed oozing gastric ulcers with a visible vessel that was treated with bipolar cautery and biopsy. Patient was maintained on Protonix and sucralfate. During his hospital stay, patient was found to be lethargic, her pain medications were held. Patient was noted with a gradual drop in hemoglobin. Hemoglobin was 7.1 on day of discharge and she was transfused 1 unit of packed RBC. She was discharged on oral PPI and sacral fate. She will follow-up with GI within 2 weeks. She will follow-up with her primary care doctor. Physical Exam: Gen: Comfortable, not pale, not jaundiced CVS:HS I +II, regular, no murmurs RESP: Diminished at lung bases GI: BS present and normal, soft, nontender, no palpable organs EXT:No edema Visit Charges Inpatient E&M: 52616 Disch Hosp
--- NOTE | 2022-01-19 13:53 | CASEMGMT ---
Addendum entered by Marilynn Ramírez 01/19/22 14:06: Pt states no concerns with going home at discharge and states will be homebound for HHC. Pt voices no further questions/concerns/needs. Jose PANCHAL CM Original Note: Pt's D/C summary/instructions sent to [facility] via [employer]. Jose PANCHAL CM
--- NOTE | 2022-01-19 14:21 | PHA.DC.MC ---
Pharmacy Service has performed discharge medication reconciliation and counseling for this patient. 1. PANTOPRAZOLE 40MG PO DAILY 2. SUCRALFATE 1GM PO TIDAC The patient's discharge medication list was reviewed for discrepancies and discrepancies were resolved. Home Medications cholecalciferol (vitamin D3) 25 mcg (1,000 unit) tablet 5,000 unit PO DAILY supplement 02/21/17 allopurinol 100 mg tablet 1 tab PO BID gout 08/15/17 ferrous sulfate 325 mg (65 mg iron) tablet 325 mg PO DAILY supplement 12/13/17 aspirin 81 mg chewable tablet 81 mg PO BIDCM blood thinner 01/02/18 lisinopril 10 mg tablet 10 mg PO DAILY 06/16/20 sertraline 50 mg tablet 50 mg PO DAILY 06/16/20 atorvastatin 40 mg tablet 40 mg PO QHS 07/15/20 famotidine 40 mg tablet 40 mg PO BID 07/15/20 pregabalin 300 mg capsule 300 mg PO BID 03/02/21 hydrocodone-acetaminophen 5-325mg 5mg-325mg 1 tab PO Q6H PRN PRN Pain 3 days #12 TABLETS 03/18/21 insulin detemir U-100 100 unit/mL (3 mL) subcutaneous pen (Levemir FlexTouch U-100 Insulin) 40 unit subcut QHS 04/12/21 insulin lispro 100 unit/mL subcutaneous pen 16 unit SC BREAKFAST 04/12/21 insulin lispro 100 unit/mL subcutaneous pen 16 unit subcut LUNCH 04/12/21 insulin lispro 100 unit/mL subcutaneous pen 18 unit subcut DINNER 04/12/21 docusate sodium 50 mg capsule 50 mg PO DAILY PRN Constipation 01/16/22 pantoprazole 40 mg tablet,delayed release (Protonix) 40 mg PO DAILY #60 tabs 01/19/22 sucralfate 1 gram tablet 1 g PO TIDAC 30 days #90 tabs 01/19/22 The patient was counseled on the following discharge medications and changes in medications for homegoing were reviewed. The Reason for Use, instructions for use, and potential side effects were reviewed for all new medications. The patient's questions regarding all of their medications were answered. The patient was able to verbally demonstrate an understanding of their discharge medications. Patient counseled by dean for student affairsAris.
[2022-01-19 14:30] LABS: Hematocrit 32.3 % (37-47); Hemoglobin 9.7 g/dL (12.0-15.0)
== END 2022-01-19 16:31 | disposition home or self-care (01) | DRG 377 ==
LOC: ED 21:56 → PCU 01-15 00:08
PROVIDERS: Internal Medicine; Internal Medicine Gastroenterology; Nurse Practitioner Family; Admitting Provider Student in an Organized Health Care Education/Training Program; Emergency Provider Emergency Medicine; PCP Family Medicine; Visit Provider Internal Medicine
PROC: 0DJ08ZZ Inspection of Upper Intestinal Tract, Via Natural or Artificial Opening Endoscopic (ICD-10-PCS; CPT 43235; principal; 2022-01-17 12:25)
DX: K25.4 Chronic or unspecified gastric ulcer with hemorrhage (principal); G93.41 Metabolic encephalopathy; D62 Acute posthemorrhagic anemia; E11.22 Type 2 diabetes mellitus with diabetic chronic kidney disease; E11.40 Type 2 diabetes mellitus with diabetic neuropathy, unspecified; N18.32 Chronic kidney disease, stage 3b; Z79.4 Long term (current) use of insulin; E78.5 Hyperlipidemia, unspecified; I12.9 Hypertensive chronic kidney disease with stage 1 through stage 4 chronic kidney disease, or unspecified chronic kidney disease; K58.9 Irritable bowel syndrome, unspecified; M10.9 Gout, unspecified; K29.71 Gastritis, unspecified, with bleeding; R47.81 Slurred speech; R53.1 Weakness; R53.83 Other fatigue; R29.6 Repeated falls; Z95.818 Presence of other cardiac implants and grafts; Z79.82 Long term (current) use of aspirin; Z79.899 Other long term (current) drug therapy; Z86.73 Personal history of transient ischemic attack (TIA), and cerebral infarction without residual deficits; Z28.310 Unvaccinated for COVID-19; Z28.9 Immunization not carried out for unspecified reason
CPT/HCPCS: 36415; 70450; 70544; 70549; 70551; 71045; 80048; 80053; 80061; 81001; 82274; 82607; 82746; 82962; 83540; 83550; 85014; 85018; 85025; 86850; 86900; 86901; 86920; 86922; 88305; 88342; 93306; 94762; 97110; 97162; 97166; 97530; 97535; 99285; A9575; J7030; J7040; J7050; J7120; P9016; Q9957; A4216; J2405; J2916

== ENCOUNTER 2022-02-15 18:31 | Inpatient (IN) | payer MEDICARE, MEDICAID, SELFPAY ==
[2022-02-15 18:09] VITALS: BMI 33.0
--- NOTE | 2022-02-15 18:21 | CON.PCM_ITS ---
Assessment & Plan Assessment/Plan (1) Anemia: PLAN: Her anemia is likely multifactorial from acute blood loss in the upper GI tract and chronic blood loss from lower GI tract. (2) Abnormal CT scan: PLAN: Recommend colonoscopy evaluation of her lower GI tract and colon for colonic malignancy. She should have a CEA drawn. She was explained alternatives, risk, benefits include not withstanding bleeding, infection, sepsis, perforation, need for emergent or . She have an ASA of 3. HPI Consult Data Date of Consult: 02/15/22 HPI Narrative Reason for Consultation: abnormal CT scsan HPI Narrative: LADI CUELLO, is a 76 F who presents from outside hospital after being discovered to have a lesion in her hepatic flexure of her colon. She has a past medical history of iron deficient anemia on iron therapy. She originally presented to the ED with confusion. ? She has a history of hypertension, hyperlipidemia, diabetes, chronic kidney disease and syncope.? She did have a an implantable loop recorder placed and she has been doing quite well with no cardiac symptomatology.??She also has a past medical history of iron deficiency anemia.? She takes iron on a daily basis.? Her hemoglobin has been ranging from 9-11.? When she came into the ED hemoglobin was 9.5.? It has been slowly dropping down and is currently 8.4.? I was consulted for the evaluation of acute anemia possibly secondary to GI blood loss.? Her BUN/creatinine ratio was 39:1 0.3.? She did admit to occasional dark stools but she does take iron on a daily basis. 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 At an outside hospital she was discovered to have an apple core lesion approximately 7.5 cm x 5.5 cm at the level of the hepatic flexure with stenosis at the level of the transverse colon extended into the ascending colon. There was also adjacent lymph nodes that were seen on imaging. [facility] Medical History (Updated 02/15/22 @ 18:[address] 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) Stroke Syncope Thyroid goiter Thyroid nodule Home Medications cholecalciferol (vitamin D3) 25 mcg (1,000 unit) tablet 5,000 unit PO DAILY supplement 02/21/17 [History Last Taken 10/29/17] allopurinol 100 mg tablet 1 tab PO BID gout 08/15/17 [History Last Taken ] ferrous sulfate 325 mg (65 mg iron) tablet 325 mg PO DAILY supplement 12/13/17 [History Last Taken Unknown] aspirin 81 mg chewable tablet 81 mg PO BIDCM blood thinner 01/02/18 [History Last Taken Unknown] lisinopril 10 mg tablet 10 mg PO DAILY 06/16/20 [History Last Taken Unknown] sertraline 50 mg tablet 50 mg PO DAILY 06/16/20 [History Last Taken Unknown] atorvastatin 40 mg tablet 40 mg PO QHS 07/15/20 [History Last Taken Unknown] famotidine 40 mg tablet 40 mg PO BID 07/15/20 [History Last Taken Unknown] pregabalin 300 mg capsule 300 mg PO BID 03/02/21 [History Last Taken Unknown] hydrocodone-acetaminophen 5-325mg 5mg-325mg 1 tab PO Q6H PRN PRN Pain 3 days #12 TABLETS 03/18/21 [Rx Last Taken Unknown] insulin detemir U-100 100 unit/mL (3 mL) subcutaneous pen (Levemir FlexTouch U-100 Insulin) 40 unit subcut QHS 04/12/21 [History Last Taken Unknown] insulin lispro 100 unit/mL subcutaneous pen 16 unit SC BREAKFAST 04/12/21 [History Last Taken Unknown] insulin lispro 100 unit/mL subcutaneous pen 16 unit subcut LUNCH 04/12/21 [History Last Taken Unknown] insulin lispro 100 unit/mL subcutaneous pen 18 unit subcut DINNER 04/12/21 [History Last Taken Unknown] docusate sodium 50 mg capsule 50 mg PO DAILY PRN Constipation 01/16/22 [History Last Taken Unknown] pantoprazole 40 mg tablet,delayed release (Protonix) 40 mg PO DAILY #60 tabs 01/19/22 [Rx Last Taken Unknown] sucralfate 1 gram tablet 1 g PO TIDAC 30 days #90 tabs 01/19/22 [Rx Last Taken Unknown] Allergy/AdvReac Type Severity Reaction Status Date / Time duloxetine [From Cymbalta] Allergy Unknown Verified 04/12/21 13:55 linagliptin [From Tradjenta] Allergy Hives Verified 04/12/21 13:55 oxycodone [From OxyContin] Allergy Rash Verified 04/12/21 13:55 Family History Unknown Alcoholism Arthritis Asthma Depression Hypertension High cholesterol Kidney disease Severe allergy Diabetes Surgical History H/O tubal ligation History of back surgery History of carpal tunnel release History of cataract surgery History of knee replacement History of loop recorder (12/12/19) History of robot-assisted laparoscopic hysterectomy (10/02/19) History of salpingo-oophorectomy (10/02/19) Hx of appendectomy Hx of cholecystectomy Social History Smoking Status: Never smoker second hand exposure: No alcohol intake: never substance use type: does not use ROS Constitutional Constitutional: Reports fatigue, malaise and weakness; Denies anorexia, chills or fever(s) Eyes Eyes: Denies change in vision ENT HEENT: Denies abnormal hearing, dysphagia, headache(s), hearing loss or sore throat Cardiovascular Cardiovascular: Denies chest pain, dyspnea on exertion, edema, lightheadedness, palpitations, paroxysmal nocturnal dyspnea, rapid heart rate or syncope Respiratory/Chest Respiratory/Chest: Denies cough, dyspnea, productive cough, shortness of breath at rest, shortness of breath with exertion or wheezing Gastrointestinal Gastrointestinal: Denies abdominal pain, constipation, diarrhea, nausea or vomiting Genitourinary Genitourinary: Denies burning urination, dysuria, nocturia, urinary frequency or urinary hesitancy Musculoskeletal Musculoskeletal: Denies arthralgias Neurologic Neurologic: Reports confusion; Denies dizziness, focal weakness, headache(s), numbness, paresthesias, seizure-like activity, seizures or syncope Psychiatric Psychiatric: Denies anxiety or depression Physical Exam Const Constitutional Narrative: Drowsy HEENT normocephalic and moist oral mucous membranes Eyes PERRL, EOMs intact bilaterally and conjunctivae normal Neck no lymphadenopathy Resp normal respiratory effort and clear to auscultation bilaterally Cardio regular rate, regular rhythm and no murmurs Peripheral Pulses: pulses 2+ throughout GI normal to inspection, nondistended, normoactive bowel sounds, non-tender and non-distended Extremity normal to inspection Skin no rashes or lesions noted Lesions: no lesions Rashes: no rashes Trauma: no lacerations or abrasions Neuro CN's II-XII intact bilaterally, no focal motor deficits, no sensory deficits noted and deep tendon reflexes 2+ bilaterally Psych mental status grossly normal and affect normal Charges/Coding Visit Charges Inpatient E&M: 12676 Init Hosp L2
--- NOTE | 2022-02-15 18:36 | HP.PCM.HOS_ITS ---
HPI - General General Date of Admission: 02/15/22 Date of Service: 02/15/22 Chief Complaint: abdominal pain HPI Narrative LADI CUELLO, is a 76 F who presents presents with 3 days of abdominal pain. She abdominal pain is in the epigastrium and radiating to the right upper quadrant. Causing her stabbing discomforts. Patient presented to an outside hospital for evaluation. At the outside hospital, patient had a lactate that was 1.1 BMP that was unremarkable lipase that was normal his CBC that was unremarkable. CAT scan with contrast showed an ascending colon apple core lesion at the hepatic flexure, highly concerning for colonic malignancy. Drs. Avery and Naomie were contacted before acceptance and agreed to see the patient on consultation. Patient denies any hematemesis or hematochezia. Does have dark stool but does take iron. There has been no change in the consistency of her stool. Patient has had a colonoscopy in the past but she is unsure how long ago that was. [facility] Medical History (Updated 02/15/22 @ 18:[address] 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) Stroke Syncope Thyroid goiter Thyroid nodule Home Medications cholecalciferol (vitamin D3) 25 mcg (1,000 unit) tablet 5,000 unit PO DAILY supplement 02/21/17 [History Last Taken 10/29/17] allopurinol 100 mg tablet 1 tab PO BID gout 08/15/17 [History Last Taken 10/29/17] ferrous sulfate 325 mg (65 mg iron) tablet 325 mg PO DAILY supplement 12/13/17 [History Last Taken Unknown] aspirin 81 mg chewable tablet 81 mg PO BIDCM blood thinner 01/02/18 [History Last Taken Unknown] lisinopril 10 mg tablet 10 mg PO DAILY 06/16/20 [History Last Taken Unknown] sertraline 50 mg tablet 50 mg PO DAILY 06/16/20 [History Last Taken Unknown] atorvastatin 40 mg tablet 40 mg PO QHS 07/15/20 [History Last Taken Unknown] famotidine 40 mg tablet 40 mg PO BID 07/15/20 [History Last Taken Unknown] pregabalin 300 mg capsule 300 mg PO BID 03/02/21 [History Last Taken Unknown] hydrocodone-acetaminophen 5-325mg 5mg-325mg 1 tab PO Q6H PRN PRN Pain 3 days #12 TABLETS 03/18/21 [Rx Last Taken Unknown] insulin detemir U-100 100 unit/mL (3 mL) subcutaneous pen (Levemir FlexTouch U- 100 Insulin) 40 unit subcut QHS 04/12/21 [History Last Taken Unknown] insulin lispro 100 unit/mL subcutaneous pen 16 unit SC BREAKFAST 04/12/21 [History Last Taken Unknown] insulin lispro 100 unit/mL subcutaneous pen 16 unit subcut LUNCH 04/12/21 [History Last Taken Unknown] insulin lispro 100 unit/mL subcutaneous pen 18 unit subcut DINNER 04/12/21 [History Last Taken Unknown] docusate sodium 50 mg capsule 50 mg PO DAILY PRN Constipation 01/16/22 [History Last Taken Unknown] pantoprazole 40 mg tablet,delayed release (Protonix) 40 mg PO DAILY #60 tabs 01/19/22 [Rx Last Taken Unknown] sucralfate 1 gram tablet 1 g PO TIDAC 30 days #90 tabs 01/19/22 [Rx Last Taken Unknown] Allergy/AdvReac Type Severity Reaction Status Date / Time duloxetine [From Cymbalta] Allergy Unknown Verified 04/12/21 13:55 linagliptin [From Tradjenta] Allergy Hives Verified 04/12/21 13:55 oxycodone [From OxyContin] Allergy Rash Verified 04/12/21 13:55 Family History Unknown Alcoholism Arthritis Asthma Depression Hypertension High cholesterol Kidney disease Severe allergy Diabetes Surgical History H/O tubal ligation History of back surgery History of carpal tunnel release History of cataract surgery History of knee replacement History of loop recorder (12/12/19) History of robot-assisted laparoscopic hysterectomy (10/02/19) History of salpingo-oophorectomy (10/02/19) Hx of appendectomy Hx of cholecystectomy Social History Smoking Status: Never smoker second hand exposure: No alcohol intake: never substance use type: does not use ROS ROS Narrative Does have a chronic pain in her right foot due to neuropathy due to previous back surgery. All review of systems were negative except as mentioned above in the history of present illness and the other review of systems. Vital Signs Vital Signs Vital Signs: Weight Weight: 79.333 kg Body Mass Index (BMI) 33.0 Physical Exam Const alert and no apparent distress Resp normal respiratory effort, no retractions, no use of accessory muscles and clear to auscultation bilaterally Cardio regular rate, regular rhythm, S1 normal heart sound and S2 normal heart sound GI non-distended GI Narrative: Epigastric abdominal pain. Auscultation: Negative for hyperactive bowel sounds or hypoactive bowel sounds Extremity normal to inspection Neuro oriented x3 and moves all extremities Psych Psych Narrative: Flat affect Results Lab / Micro Data Attestation: I reviewed the patient's lab results. Lab results narrative: CT scan at outside hospital: Ascending colon apple core lesion at the hepatic flexure, highly concerning for colonic malignancy. CBC: White count 8.7, hemoglobin 10, hematocrit 31, platelets 104 Lactate 1.1 Lipase 22 BMP: Sodium 142, potassium 3.4, glucose 207, creatinine 1.27., Albumin 2.9, total bilirubin 0.8, ALT 22 Assessment & Plan Assessment/Plan (1) Colonic mass: PLAN: Concern is for underlying colon malignancy Patient to undergo colonoscopy pending prep Gi on consult to perform colonoscopy General surgery consulted in case surgical intervention required, though unlikley to be needed acutely. (2) Abdominal pain: PLAN: May be 2/2 above. Lactate 1.1, though cannot rule out ischemic colitis (3) PUD (peptic ulcer disease): PLAN: Patient had bleeding gastric ulcers on EGD on January 17. Treated with bipolar cautery at that time and biopsied. Biopsy results reviewed and was negative for H. pylori. Showed mild gastritis. Patient to continue with PPI as well as Sucralfate Hemoglobin appears to be stable from last month. No need for transfusions at this time. (4) History of CVA (cerebrovascular accident): PLAN: Clopidogrel had been held during last admission. Patient unsure if she has resumed that or not. We will hold the aspirin in the meantime. Discussed with Dr. Avery, even if she had taken clopidogrel would not delay biopsy at this time. (5) Controlled type 2 diabetes mellitus with insulin therapy: PLAN: We will cut the patient's basal insulin from 40-20 until she can eat normally. Hold off on her scheduled prandial insulin as well. Add sliding scale insulin. PLAN: Plan Chronic conditions * Neuropathy: Continue with pregabalin. * Gout: Continue with allopurinol * Hyperlipidemia: Hold statin for now. * Hypertension: Stable: Continue lisinopril * Depression: Continue with sertraline VTE prophylaxis: SCDs for now pending biopsies. I discussed with the patient's son and [id number] at bedside. Charges/Coding Visit Charges Inpatient E&M: 77641 Init Hosp L3
[2022-02-15 18:49] VITALS: BP 133/55; PULSE 74; RESP 16; TEMP 37.2; O2SAT 98
[2022-02-15] MEDS: Morphine 2 MG/ML Syringe IV (19:10)
[2022-02-15] MEDS: 0.9% Saline Lock 10 ML Syringe IV ×2 (19:10→20:05)
[2022-02-15] MEDS: 0.9% Normal Saline 1,000 ML 125 ML IV (20:05)
[2022-02-15] MEDS: Bisacodyl 5 MG Tablet 20 MG PO (20:09)
[2022-02-15] MEDS: Polyethylene Glycol 3350 BOWEL PREP PO (20:44)
--- NOTE | 2022-02-15 21:10 | NURSING ---
Pt unsure of med list. States daughter will will bring in the med list tonight.
[2022-02-15] MEDS: Insulin Glargine-YFGN 100 UNIT/ML Pen 20 UNIT SC (21:57)
[2022-02-15] MEDS: Pregabalin 75 MG Capsule 300 MG PO (22:00)
[2022-02-15 22:15] LABS: Bedside Glucose 148 mg/dL (74-106)
[2022-02-15 22:25] LABS: Bedside Glucose 220 mg/dL (74-106)
[2022-02-16] VITALS (11 sets, daily range): BP systolic 111–174; BP diastolic 49–71; PULSE 62–73; RESP 16–18; TEMP 36.1–36.9; O2SAT 93–100
--- NOTE | 2022-02-16 | COLBX_PTH ---
PATIENT: LADI CUELLO LOC: MS3 U#:[id number] AGE/SX: 76/F ROOM: HI305 RE02/15/[address]: Dr. Sergei Wan MD : 1945 BED: 1 DIS: 02/21/2022 SPEC #: [id number] RECD: 02/16/22 10:27 STATUS: IHSAN REQ #: [id number] RAGHU: 02/16/22 00:[address]: Garrett Avery DEPT: SURGICAL PATHOLOGY RECD BY: Shantel Mcclain ENTERED: 02/16/22 11:41 SP TYPE: COLON BX OTHR DR: DO Dr. Марина Case MD Dr. Michael Bortz, MD Dr. Prakash Chand, MD Tissues: A - SPLENIC FLEXURE B - Gastric mucous membrane Procedures: Frozen Section (charge) Surgery Specimen Level IV Comments: @ Ordering doctor for FSC edited from to @ by RGOOD at 02/16/22 1142 @ Ordering doctor for SUIV edited from to @ by RGOOD at 02/16/22 1142 @ Submitting doctor edited from to @ by RGOOD at 02/16/[address] Avery's office ([facility]), both biopsies were hepatic. 02/18/2022 HEADER OPERATION: Colonoscopy (MAC) PRE-OP DIAGNOSIS: Anemia TISSUE SUBMITTED: A ? Hepatic flexure mass biopsy, FS, B ? Hepatic flexure mass biopsy FROZEN SECTION DIAGNOSIS A. Colonic mass at hepatic flexure, biopsy: Adenocarcinoma. AM:chirag 02/16/2022 MICROSCOPIC DIAGNOSIS A. Colonic mass at hepatic flexure, biopsy: Invasive adenocarcinoma. B. Hepatic flexure mass, biopsy: Consistent with invasive mucinous adenocarcinoma. See comment. AM:chirag 02/18/2022 COMMENT B. Immunohistochemistry ([id number]) supports the above diagnosis. Case has been reviewed in consultation with Dr. Rodrigues who concurs with the above diagnosis. IDC:[email or web address] MICROSCOPIC DESCRIPTION Slides are reviewed. GROSS DESCRIPTION A - Received fresh for frozen section consultation labeled with the patient's name is a specimen designated hepatic flexure mass. The specimen consists of multiple irregular fragments of pink soft tissue that in aggregate measure 0.2 x 0.2 x 0.1 cm. The specimen is submitted in its entirety for frozen section consultation in one cassette. / AM:chirag 02/16/2022 B - Received in fixative is one container labeled with the patient's name and designated hepatic flexure mass. The specimen consists of multiple irregular fragments of light lambert soft tissue that in aggregate measure 1 x 0.2 x 0.1 cm. The specimen is totally submitted in one cassette. / SJ:chirag 02/16/2022 TC:0 CPT: 95291 x2, 97851
--- NOTE | 2022-02-16 | IMM_PTH ---
PATIENT: LADI CUELLO LOC: MS3 U#:[id number] AGE/SX: 76/F ROOM: MS305 RE02/15/[address]: Dr. Sergei Wan MD : 1945 BED: 1 DIS: 02/21/2022 SPEC #: [id number] RECD: 02/17/22 12:53 STATUS: SOURamila REQ #: [id number] RAGHU: 02/16/22 00:[address]: Garrett Avery DEPT: IMMUNOHISTOCHEMISTRY RECD BY: Shantel Mcclain ENTERED: 02/17/22 12:55 SP TYPE: IMMUNO OTHR DR: DO Dr. Марина Case MD Dr. Michael Bortz, MD Dr. Mark Tereletsky, DO Dr. Prakash Chand, MD Tissues: COLON BIOPSY Procedures: P53 (initial) MSH2 (add) MLH-1 (add) MSH6 (add) Anti-PMS2 (add) THOMPSON-2 (add) KI-67 (add) PHYSICIAN & [address] [address] SPECIMEN INFORMATION: Tissue Source: B ? Hepatic flexure mass biopsy Clinical Info: [place] Specimen Number: [id number] CPT code: 73444, 84705 x6 METHODOLOGY: Deparaffinized sections of prefer/formalin-fixed tissue or PAP/DQ stained slides are incubated with monoclonal/polyclonal antibodies/oligonucleotide probes. Localization is made via biotin free immunoperoxidase method. Appropriate controls are performed and reacted as expected. Results on target cell population are indicated in the following table: RESULTS: ANTIBODY / CLONE RESULT THOMPSON-2 (SP21) positive MLH-1 (M1) positive, dim MSH2 (25D12) positive MSH6 (44) positive PMS2 (TMU7445) positive Ki-67 (30-9) positive, >90% P53 (DO-7) positive, 50% These tests were developed and their performance characteristics determined by [facility]. They may not have been cleared or approved by the U.S. Food and Drug Administration. The FDA has determined that such clearance or approval is not necessary. The above immunohistochemical/dualISH markers are ordered and reviewed by the Pathologist. INTERPRETATION: B. Hepatic flexure mass, biopsy: Invasive adenocarcinoma. Result of Microsatellite Instability Study: Negative (no loss of mismatch protein; no microsatellite instability detected). AM:chirag 02/18/2022
--- NOTE | 2022-02-16 03:51 | NURSING ---
Staff has been encouraging pt to drink prep all night. There are 35 ounces of prep left. Pt has not had a bowel movement. Pt states she is done drinking prep and she is going to sleep. This RN will notify Dr. Avery around 6am.
[2022-02-16] MEDS: 0.9% Normal Saline 1,000 ML 125 ML IV ×2 (04:13→12:04)
--- NOTE | 2022-02-16 05:55 | EKG12_ITS ---
Test Reason : AM EKG Blood Pressure : / mmHG Vent. Rate : 073 BPM Atrial Rate : 073 BPM P-R Int : 156 ms QRS Dur : 084 ms QT Int : 398 ms P-R-T Axes : 046 028 039 degrees QTc Int : 438 ms Normal sinus rhythm Normal ECG Confirmed by NATALIA BALDERRAMA, NORMAN ([id number]), health editor MARYBEL GONZALES ([id number]) on 02/17/2022 1:06:27 PM Referred By: DR AMARO Confirmed By:NORMAN FISHER MD
[2022-02-16 06:17] LABS: Absolute Lymphocyte Count 0.65 X10^3/uL (0.83-4.51); Absolute Neutrophil Count 4.2 X10^3/uL (2.0-7.7); Basophil# 0.01 X10^3/uL; Basophil% 0.2 % (0-1); Eosinophil# 0.11 X10^3/uL; Eosinophils% 2.1 % (0-5); Hematocrit 27.7 % (37-47); Hemoglobin 8.8 g/dL (12.0-15.0); Lymphocyte # 0.65 X10^3/ul (0.83-4.51); Lymphocyte % 12.2 % (19-41); Mean Corp Hgb Conc 31.8 g/dL (32-36); Mean Corpuscular Hgb 28.3 pg (27.0-32.0); Mean Corpuscular Volume 89.1 fL (81-99); Mean Platelet Vol. 12.9 fl (6.2-12.0); Monocyte# 0.32 X10^3/uL; NRBC Flagged by Analyzer 0 % (0-5); Neutrophil # 4.21 X10^3/uL (2.7-7.7); Neutrophil % 79.3 % (47-70); Platelet Count 103 K/mm3 (150-450); RBC Distribution Width CV 14.9 % (11.6-14.6); RBC Distribution Width SD 48.2 fl (35.1-43.9); Red Blood Count 3.11 M/mm3 (4.2-5.4); White Blood Count 5.3 K/mm3 (4.4-11.0)
[2022-02-16 06:20] LABS: Bedside Glucose 287 mg/dL (74-106)
[2022-02-16] MEDS: Insulin Lispro 100 UNIT/ML INSULN.PEN SC ×2 (06:30→16:25)
[2022-02-16 06:44] LABS: International Normalized Ratio 1.2; Prothrombin Time (Protime)PT. 15.3 SECONDS (11.7-14.9)
[2022-02-16 06:45] LABS: Partial Thromboplast Time 40.8 Seconds (24.1-36.2)
[2022-02-16 06:46] LABS: ALB/GLOB Ratio 0.6 RATIO (0.9-2.4); AST(SGOT) 21 U/L (15-37); Alanine Aminotransfer ALT/SGPT 19 U/L (13-56); Albumin, Serum 2.4 g/dL (3.2-5.0); Alkaline Phosphatase 101 U/L (45-117); Anion Gap 6 (5-15); BUN 16 mg/dL (7-18); BUN/Creat Ratio 14.4 RATIO (10-20); Bilirubin, Direct 0.12 mg/dL (0.00-0.30); Calcium,Total 8.1 mg/dL (8.5-10.1); Chloride 105 mmol/L (98-107); Creatinine, Serum 1.11 mg/dL (0.55-1.02); EST Glomerular Filtration Rate 51 mL/min (>60); Est Glom Filt Rate - Afr Amer 62 mL/min (>60); Estimated Creatinine Clearance 33.04 ml/min; Globulin 3.8 g/dL (2.2-4.2); Glucose 302 mg/dL (74-106); Potassium 3.5 mmol/L (3.5-5.1); Protein, Total 6.2 g/dL (6.4-8.2); Sodium Level 138 mmol/L (136-145)
--- NOTE | 2022-02-16 07:01 | NURSING ---
2 of 3 Enemas given with formed /liquid stool brown in color results, Pt stated during sitting up that she was dizzy and that this was a frequent occurance.
--- NOTE | 2022-02-16 07:07 | PN.HOSP_ITS ---
Subjective Subjective Follow-up for colonic mass, abdominal pain. Blood pressure and heart rate are controlled. No hypoxia. Mild abdominal pain which is resolved now Objective Data Objective Data Vital Signs: Vital Signs Temp Pulse Resp BP Pulse Ox O2 Del Method O2 Flow Rate 98.0 F 70 18 138/61 H 93 Room Air 2 02/16/22 04:39 02/16/22 04:39 02/16/22 04:39 02/16/22 04:39 02/16/22 04:39 02/16/22 04:39 02/15/22 18:49 Oxygen Flow Rate (L/min) 2 Oxygen Delivery Method Room Air Weight: 174 lb 14.4 oz Body Mass Index (BMI) 33.0 Intake & Output: Intake and Output for Last 24 Hours 02/14/22 02/15/22 02/16/22 23:59 23:59 23:59 Intake Total 1000 / 1000 Output Total 300 / 300 Balance 700 / 700 Lab / Micro Data Result Diagrams: 02/16/22 04:55 02/16/22 04:55 Labs: Laboratory Results - last 24 hr 02/15/22 18:44: POC Glucose 148 H 02/15/22 21:55: POC Glucose 220 H 02/16/22 04:55: WBC 5.3, RBC 3.11 L, Hgb 8.8 L, Hct 27.7 L, MCV 89.1, MCH 28.3, MCHC 31.8 L, RDW Std Deviation 48.2 H, RDW Coeff of Kenneth 14.9 H, Plt Count 103 L, MPV 12.9 H, Immature Gran % (Auto) 0.200, Neut % (Auto) 79.3 H, Lymph % (Auto) 12.2 L, [place] % (Auto) 6.0, Eos % (Auto) 2.1, Baso % (Auto) 0.2, Absolute Neuts (auto) 4.2, Absolute Lymphs (auto) 0.65 L, Nucleated RBC % 0 02/16/22 04:55: Sodium 138, Potassium 3.5, Chloride 105, Carbon Dioxide 27.0, Anion Gap 6, BUN 16, Creatinine 1.11 H, Estim Creat Clear Calc 33.04, Est GFR (MDRD) Af Amer 62, Est GFR (MDRD) Non-Af 51 L, BUN/Creatinine Ratio 14.4, Gl ucose 302 H, Calcium 8.1 L, Total Bilirubin 0.60, Direct Bilirubin 0.12, AST 21, ALT 19, Alkaline Phosphatase 101, Total Protein 6.2 L, Albumin 2.4 L, Globulin 3.8, Albumin/Globulin Ratio 0.6 L 02/16/22 05:07: PT 15.3 H, INR 1.2, APTT 40.8 H 02/16/22 06:01: POC Glucose 287 H Physical Exam Narrative Patient has chronic abdominal pain mainly in epigastric and right upper quadrant region but currently feels no abdominal pain. Patient also has chronic constipation and takes stool softeners with some success at home. Lost 5 pounds in 1 month. Feels weak, fatigued. Had 3 enemas today for planned colonoscopy today. colon seems to still not clear thereforeAnother enema Physical exam General: Alert, Oriented x3, Cooperative HEENT: Atraumatic, PERRLA, EOMI, Normocephalic Oral: No Gingival or Mucosal Lesions/ Ulcerations Neck: Supple, No JVD, Negative Carotid Bruits Lungs: Air entry diminished in bilateral lung bases. No crepitation/rhonchi Cardiovascular: Regular rate, Regular Rhythm, Normal S1, Normal S2, No murmurs Abdomen: Bowel Sounds Present, Soft, minimal/mild tenderness over epigastric and right upper quadrant. Mild distention. No palpable mass : No renal angle tenderness. No suprapubic tenderness. Extremities: No edema, Capillary Refill Less than 3 Seconds Skin: No rashes, No breakdown Musculoskeletal: No Tenderness to Palpation of Joints or Extremities. Bilateral TKR. Mild bilateral hip arthritis Neurological: Cranial nerves II-XII grossly intact, DTR 2+/4 and Symmetrical Psych/Mental Status: Flat affect Assessment & Plan Assessment/Plan (1) Colonic mass: PLAN: This 76-year-old female admitted from outside [facility] for abnormal CT scan and anemia. CT scan found to have apple core lesion in hepatic flexure 7.5 x 5.5 cm. 1. Hepatic flexure mass highly concerning for colonic malignancy: Patient is admitted [facility]. Patient has fatigue, chronic GI blood loss, anemia, loss of appetite and loss of weight. GI and surgeon are consulted. Plan for colonoscopy. During previous hospitalization, she had EGD as mentioned below but refused colonoscopy. Abdominal pain probably due to hepatic flexure mass which has resolved now. Lactate 1.1. Patient does not have CT scan images uploaded in PACS. We will try to get uploaded from [facility]. Patient going for colonoscopy today 2. Acute anemia on chronic anemia due to GI blood loss: Patient admitted with hemoglobin 8.4. Her baseline hemoglobin ranges from 9 to 11 g%. No need for transfusion. 3. PUD (peptic ulcer disease): Patient had bleeding gastric ulcers on EGD on January 17.? Treated with bipolar cautery at that time and biopsied. Biopsy results reviewed and was negative for H. pylori.? Showed mild gastritis. Patient to continue with PPI as well as Sucralfate Hemoglobin appears to be stable from last month.? No need for transfusions at this time. 4. History of CVA (cerebrovascular accident): Clopidogrel had been held during last admission.? Patient unsure if she has resumed that or not.? We will hold the aspirin in the meantime.? Admitting hospitalist discussed with Dr. Avery, even if she had taken clopidogrel would not delay biopsy at this time. (5) Controlled type 2 diabetes mellitus with insulin therapy: We will cut the patient's basal insulin from 40-20 until she can eat normally.? Hold off on her scheduled prandial insulin as well.? Add sliding scale insulin. PLAN: Plan Chronic conditions * Neuropathy: Continue with pregabalin. * Gout: Continue with allopurinol * Hyperlipidemia: Hold statin for now. * Hypertension: Stable: Continue lisinopril * Depression: Continue with sertraline VTE prophylaxis: SCDs for now pending biopsies. Total time of the visit including total time spent in counseling or coordination of care, (more than 50% of the total time, spent in obtaining medical information from nurses and other ancillary care providers,explaining to the patient about labs, imaging, diagnosis and management of active complex medical conditions), discussion with surgeon and GI, review of labs and imaging is 40 minutes. Charges/Coding Visit Charges Inpatient E&M: 62917 [facility] Hosp L3
--- NOTE | 2022-02-16 08:22 | EX.PCM.CON.S ---
Assessment & Plan Assessment/Plan (1) Colonic mass: PLAN: This is a 76-year-old female, with a moderately complex past medical history, who presents with a new apple core lesion of the hepatic flexure. She is due for diagnostic colonoscopy today to further characterize. I have shared with her that we are highly concerned for a malignant process. Timing of intervention will depend on both patient's medical optimization as well as risk for obstruction. Given her lack of response to the prep there would seem to be some risk. However, I am not able to see the patient's original CT imaging from outside hospital. We will look to obtain this imaging for independent review. Additionally, I would like to obtain further study of her carotid arteries as there are discrepant results between patient's CTA from 2019 and MRA from January 2022. For the interim recommend: ?Imaging as above ? Follow-up pathology from patient's colonoscopy (received recent phone call from Dr. 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 Maintain patient with clear liquid diet ? Further operative plans to be forthcoming, but would like to speak with patient's family HPI Consult Data Date of Consult: 02/16/22 HPI Narrative HPI Narrative: LADI CUELLO, is a 76 F who presents to [facility] as a direct transfer from [facility] for newly diagnosed suspicious right colon finding. After learning of patient's presentation to that facility I spoke with Dr. Bettencourt of emergency medicine there and he informed me that patient was presenting with severe right upper quadrant pain. CT of the abdomen pelvis showed an apple core lesion of the hepatic flexure. He was able to confirm that patient was still having bowel movements and did not appear obstructed. Dr. Calix of the hospitalist service accepted the patient and requested consultation with myself and Dr. Avery of gastroenterology. In meeting Mrs. Cuello I gather that she is a bit of a poor historian as she frequently requires repeating of questions and then retracts statements previously made to correct herself. She reports that she did not have much abdominal pain, but then stated she went into [facility] because of this pain. She believes this pain has been going on for more than a couple of days. Because of this pain she estimates that she has lost about 7 pounds. She denies any change to her bowel movements. In addition to the weight loss, she states that she has been feeling unsteady and had a recent fall from bed resulting in a gash over her right eye. Mrs. Cuello states that she lives alone, but has an aide available to her for helping with her laundry services and gets Meals on Wheels. She also has a very actively engaged daughter helping her. Patient confirms a history of a cholecystectomy and appendectomy, but was uncertain about her chart?reported hysterectomy. She initially denies any family history of colon cancers, but then states her youngest daughter just required an operation for colon cancer a couple years ago and estimates her age of diagnosis at about 50. According to bedside nursing patient completed a bowel prep for a colonoscopy this morning, but had no output. Therefore she was prescribed several enemas and has had several large bowel movements. [facility] Medical History (Updated 02/15/22 @ 18:[address] 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) Stroke Syncope Thyroid goiter Thyroid nodule Home Medications cholecalciferol (vitamin D3) 25 mcg (1,000 unit) tablet 5,000 unit PO DAILY supplement 02/21/17 [History Last Taken 10/29/17] allopurinol 100 mg tablet 1 tab PO BID gout 08/15/17 [History Last Taken 10/29/17] ferrous sulfate 325 mg (65 mg iron) tablet 325 mg PO DAILY supplement 12/13/17 [History Last Taken Unknown] aspirin 81 mg chewable tablet 81 mg PO BIDCM blood thinner 01/02/18 [History Last Taken Unknown] lisinopril 10 mg tablet 10 mg PO DAILY 06/16/20 [History Last Taken Unknown] sertraline 50 mg tablet 50 mg PO DAILY 06/16/20 [History Last Taken Unknown] atorvastatin 40 mg tablet 40 mg PO QHS 07/15/20 [History Last Taken Unknown] famotidine 40 mg tablet 40 mg PO BID 07/15/20 [History Last Taken Unknown] pregabalin 300 mg capsule 300 mg PO BID 03/02/21 [History Last Taken Unknown] hydrocodone-acetaminophen 5-325mg 5mg-325mg 1 tab PO Q6H PRN PRN Pain 3 days #12 TABLETS 03/18/21 [Rx Last Taken Unknown] insulin detemir U-100 100 unit/mL (3 mL) subcutaneous pen (Levemir FlexTouch U-100 Insulin) 40 unit subcut QHS 04/12/21 [History Last Taken Unknown] insulin lispro 100 unit/mL subcutaneous pen 16 unit SC BREAKFAST 04/12/21 [History Last Taken Unknown] insulin lispro 100 unit/mL subcutaneous pen 16 unit subcut LUNCH 04/12/21 [History Last Taken Unknown] insulin lispro 100 unit/mL subcutaneous pen 18 unit subcut DINNER 04/12/21 [History Last Taken Unknown] docusate sodium 50 mg capsule 50 mg PO DAILY PRN Constipation 01/16/22 [History Last Taken Unknown] pantoprazole 40 mg tablet,delayed release (Protonix) 40 mg PO DAILY #60 tabs 01/19/22 [Rx Last Taken Unknown] sucralfate 1 gram tablet 1 g PO TIDAC 30 days #90 tabs 01/19/22 [Rx Last Taken Unknown] Allergy/AdvReac Type Severity Reaction Status Date / Time duloxetine [From Cymbalta] Allergy Unknown Verified 04/12/21 13:55 linagliptin [From Tradjenta] Allergy Hives Verified 04/12/21 13:55 oxycodone [From OxyContin] Allergy Rash Verified 04/12/21 13:55 Family History Unknown Alcoholism Arthritis Asthma Depression Hypertension High cholesterol Kidney disease Severe allergy Diabetes Surgical History H/O tubal ligation History of back surgery History of carpal tunnel release History of cataract surgery History of knee replacement History of loop recorder (12/12/19) History of robot-assisted laparoscopic hysterectomy (10/02/19) History of salpingo-oophorectomy (10/02/19) Hx of appendectomy Hx of cholecystectomy Social History Smoking Status: Never smoker second hand exposure: No alcohol intake: never substance use type: does not use ROS Constitutional Constitutional: Reports weight loss Respiratory/Chest Respiratory/Chest: Reports cough; Denies shortness of breath with exertion Gastrointestinal Gastrointestinal: Reports abdominal pain; Denies change in bowel habits or hematochezia Neurologic Neurologic: Reports abnormal gait Physical Exam Const alert Constitutional Narrative: Oriented to place General Appearance: cooperative Resp normal respiratory effort GI GI Narrative: Several well-healed port site scars across mid abdomen. Nondistended. Soft and nontender to palpation x4 quadrants. Lab / Micro Data Result Diagrams: 02/16/22 04:55 02/16/22 04:55 Labs: Laboratory Results - last 24 hr 02/15/22 18:44: POC Glucose 148 H 02/15/22 21:55: POC Glucose 220 H 02/16/22 04:55: WBC 5.3, RBC 3.11 L, Hgb 8.8 L, Hct 27.7 L, MCV 89.1, MCH 28.3, MCHC 31.8 L, RDW Std Deviation 48.2 H, RDW Coeff of Kenneth 14.9 H, Plt Count 103 L, MPV 12.9 H, Immature Gran % (Auto) 0.200, Neut % (Auto) 79.3 H, Lymph % (Auto) 12.2 L, [place] % (Auto) 6.0, Eos % (Auto) 2.1, Baso % (Auto) 0.2, Absolute Neuts (auto) 4.2, Absolute Lymphs (auto) 0.65 L, Nucleated RBC % 0 02/16/22 04:55: Sodium 138, Potassium 3.5, Chloride 105, Carbon Dioxide 27.0, Anion Gap 6, BUN 16, Creatinine 1.11 H, Estim Creat Clear Calc 33.04, Est GFR (MDRD) Af Amer 62, Est GFR (MDRD) Non-Af 51 L, BUN/Creatinine Ratio 14.4, Glucose 302 H, Calcium 8.1 L, Total Bilirubin 0.60, Direct Bilirubin 0.12, AST 21, ALT 19, Alkaline Phosphatase 101, Total Protein 6.2 L, Albumin 2.4 L, Globulin 3.8, Albumin/Globulin Ratio 0.6 L 02/16/22 05:07: PT 15.3 H, INR 1.2, APTT 40.8 H 02/16/22 06:01: POC Glucose 287 H Charges/Coding Visit Charges Office Visits / Consults: 12786 IP Consult L2
[2022-02-16 08:42] LABS: Hemoglobin A1c 7.1 % (3.8-5.6)
--- NOTE | 2022-02-16 10:40 | RAD_ITS ---
STUDY: X-RAY - ABDOMEN/PELVIS REASON FOR EXAM: Female, 76 years old. COLON MASS, SPLENIC FLEXURE MASS -- IN ENDO PROCEDURE ROOM, PORTABLE TECHNIQUE: AP supine and decubitus views of the abdomen and pelvis. COMPARISON: None. FINDINGS: The tip of the colonoscope is at the level of the hepatic flexure. RAD/Abd Decub and/or Erect(Portabl IMPRESSION: The tip of the colonoscope is at the level of the hepatic flexure. Electronically Signed: Fortino Rangel MD at 11:28 EDT ,
--- NOTE | 2022-02-16 10:57 | OP.COLON_ITS ---
Patient Name: Elena Mccabe Procedure Date: 02/16/2022 10:10 AM Date of : 1945 Age: 76 Procedure: Colonoscopy Indications: Iron deficiency anemia Providers: Garrett Avery DO Medicines: Monitored Anesthesia Care Patient Profile: Last Colonoscopy: 5 years ago. Complications: No immediate complications. Procedure: Pre-Anesthesia Assessment: - Prior to the procedure, a History and Physical was performed, and patient medications and allergies were reviewed. The patient is competent. The risks and benefits of the procedure and the sedation options and risks were discussed with the patient. All questions were answered and informed consent was obtained. Patient identification and proposed procedure were verified by the physician in the pre-procedure area. Mental Status Examination: alert and oriented. Airway Examination: normal oropharyngeal airway and neck mobility. Respiratory Examination: clear to auscultation. CV Examination: normal. Prophylactic Antibiotics: The patient does not require prophylactic antibiotics. Prior Anticoagulants: The patient has taken no previous anticoagulant or antiplatelet agents. ASA Grade Assessment: II - A patient with mild systemic disease. After reviewing the risks and benefits, the patient was deemed in satisfactory condition to undergo the procedure. The anesthesia plan was to use monitored anesthesia care (MAC). Immediately prior to administration of medications, the patient was re-assessed for adequacy to receive sedatives. The heart rate, respiratory rate, oxygen saturations, blood pressure, adequacy of pulmonary ventilation, and response to care were monitored throughout the procedure. The physical status of the patient was re-assessed after the procedure. After I obtained informed consent, the scope was passed under direct vision. Throughout the procedure, the patient's blood pressure, pulse, and oxygen saturations were monitored continuously. The pediatric colonoscope was introduced through the anus and advanced to the hepatic flexure. The colonoscopy was performed without difficulty. The patient tolerated the procedure well. The quality of the bowel preparation was adequate. Moderate Sedation: Moderate (conscious) sedation was personally administered by an anesthesia professional. The following parameters were monitored: oxygen saturation, heart rate, blood pressure, respiratory rate, EKG, adequacy of pulmonary ventilation, and response to care. Scope In: 10:13:40 AM Scope Out: 10:45:46 AM Total Procedure Duration Time 0 hours 32 minutes 6 seconds Findings: The perianal and digital rectal examinations were normal. A few small-mouthed diverticula were found in the recto-sigmoid colon and sigmoid colon. An infiltrative completely obstructing large mass was found at the hepatic flexure. The mass was circumferential. The mass measured four cm in length. In addition, its diameter measured seven mm. Oozing was present. This was biopsied with a cold forceps for histology. Area was successfully injected with 5 mL Antonella ink for tattooing. Estimated blood loss was minimal. Impression: - Diverticulosis in the recto-sigmoid colon and in the sigmoid colon. - Malignant completely obstructing tumor at the hepatic flexure. Biopsied. Injected. - Malignant-appearing tumor in the colon. Removal was not done. Biopsied. Recommendation: - Return patient to [facility] for [facility] care. - Clear liquid diet today. - Continue present medications. - Await pathology results. - Repeat colonoscopy in 6 months to evaluate the response to therapy. Procedure Code(s): --- Professional --- 42759, 52, Colonoscopy, flexible; with directed submucosal injection(s), any substance 62123, 52, Colonoscopy, flexible; with biopsy, single or multiple CPT copyright 2017 [employer]. All rights reserved. The codes documented in this report are preliminary and upon investment analyst review may be revised to meet current compliance requirements. Garrett Avery DO 02/16/2022 10:56:52 AM This report has been signed electronically. Number of Addenda: 0 Note Initiated On: 02/16/2022 10:10 AM
--- NOTE | 2022-02-16 10:58 | OP.CCLET_ITS ---
02/16/2022 Марина Weir [place] [id number] [address] Re : Colonoscopy procedure for Elena Mccabe Dear Dr. Weir This procedure was performed on Wednesday, February 16, 2022. My impressions and recommendations are as follows: Impressions : - Diverticulosis in the recto-sigmoid colon and in the sigmoid colon. - Malignant completely obstructing tumor at the hepatic flexure. Biopsied. Injected. - Malignant-appearing tumor in the colon. Removal was not done. Biopsied. Recommendations : - Return patient to [facility] for ongoing care. - Clear liquid diet today. - Continue present medications. - Await pathology results. - Repeat colonoscopy in 6 months to evaluate the response to therapy. My findings are described in the full procedure note, which is enclosed. If I can be of further assistance, please feel free to contact me at . Sincerely, Garrett Avery, 02/16/2022 10:56:52 AM This report has been signed electronically.
--- NOTE | 2022-02-16 11:01 | CDU_ITS ---
Reason For Study: History of carotid artery stenosis Rt. Velocities/BP Lt. Velocities/BP Prox CCA 89.4/20.1 cm/sec. Prox CCA 93.7/13.3 cm/sec. Mid CCA 98.1/21.2 cm/sec. Mid CCA 70.9/15.8 cm/sec. Dist CCA 92.7/22.3 cm/sec. Dist CCA 68.1/15.2 cm/sec. Prox ICA 93.8/26.7 cm/sec. Prox ICA 59/18.8 cm/sec. Mid ICA 100.3/33.3 cm/sec. Mid ICA 85.1/29.8 cm/sec. Dist ICA 96.4/24.1 cm/sec. Dist ICA 91.2/26.2 cm/sec. Rt. ICA/CCA = 1.08. Lt. ICA/CCA = 1.29. Prox ECA 89.4/6.9 cm/sec. Prox ECA 80.9/4.2 cm/sec. Rt. Vert. 75.4/22.5 cm/sec. Lt. Vert. 55.6/16.3 cm/sec. Right Extracranial There is homogeneous, smooth atherosclerotic plaque noted in the right common carotid artery. There is heterogeneous, irregular atherosclerotic plaque noted in the right internal carotid artery. There is heterogeneous, irregular atherosclerotic plaque noted in the right external carotid artery. Antegrade flow is noted in the right vertebral artery. Left Extracranial There is homogeneous, smooth atherosclerotic plaque noted in the left common carotid artery. There is heterogeneous, irregular atherosclerotic plaque noted in the left internal carotid artery. There is heterogeneous, irregular atherosclerotic plaque noted in the left external carotid artery. Antegrade flow is noted in the left vertebral artery. Procedure Carotid Duplex 77240. This is a Carotid Duplex examination using B-mode, color flow and specral Doppler. Exam performed in department. VL/Carotid Duplex Ultrasound Interpretation Summary Minimal irregular plaque at the proximal right internal carotid artery with a l ess than 50% stenosis Less than 50% stenosis right external carotid artery Heterogenous plaque at the proximal left internal carotid artery with less than 50% stenosis Less than 50% stenosis left external carotid artery Patent and antegrade vertebral arteries bilaterally No change from the previous examination of November 20, 2017 Ordering Physician: Saurav Akbar Referring Physician: Марина Weir Performed By: Marilynn Almazan RVT
[2022-02-16] MEDS: Sucralfate 1 GM Tablet PO ×2 (12:29→16:25)
[2022-02-16] MEDS: Ferrous Sulfate 325 MG Tablet PO (12:30)
[2022-02-16 12:50] LABS: Bedside Glucose 156 mg/dL (74-106)
--- NOTE | 2022-02-16 15:12 | CASEMGMT ---
Social Work SW in to validate AD with pt. Family confirmed has LW and HCPOA. Named Brooke Mccabe as agent. Pt family doing most of talking. Pt sat quietly in chair. Family stated pt considering changing agent to this specific family member. Pt appeared hesitant to discuss. SW will check back in with pt when family leaves to double check if pt would actually like to change HCPOA. If so, it can be completed tomorrow or Monday. Pt will be in hospital until Monday, at minimum. AD George
[2022-02-16] MEDS: HYDROcodone Bitartrate/Apap 5/325 Tablet PO (16:11)
--- NOTE | 2022-02-16 16:14 | CASEMGMT ---
ANSLEY HUNTER Readmission Note Previous Admission:?01/17/22-01/19/22? Diagnosis:? Slurred speech DC Disposition: Home with?[facility] Current Admission? Current Diagnosis: Abd pain, colon mass Pt presented from outside hospital with abd pain. CAT scan with contrast showed an ascending colon apple core lesion at the hepatic flexure, highly concerning for colonic malignancy. Pt had colonoscopy today showing malignant tumor at the hepatic flexure and colon. Pt is scheduled for a hemicolectomy on 02/18. ANSLEY HUNTER into pt room, pt in pain, nurse in to medicate. Pt reports she has an aide and nurse but is unclear of the agency they are from. Pt states she also has therapy and they are from [facility] although last hospital stay noted pt was set up with [facility] through [facility]. Pt will contact her aide to determine name of agencies, ANSLEY HUNTER to check back with her tomorrow. Pt states she plans to return home after this hospital stay with current services. ANSLEY HUNTER to follow. DC Plan: Home with prior services pending how pt does post surgery.
[2022-02-16] MEDS: Lactated Ringers 1,000 ML 100 ML IV (16:16)
[2022-02-16] MEDS: Allopurinol 100 MG Tablet PO (16:25)
--- NOTE | 2022-02-16 16:41 | CT_ITS ---
EXAM: CT CHEST, ABDOMEN AND PELVIS WITH INTRAVENOUS CONTRAST CLINICAL INDICATION: colon cancer Technologist Notes Abdominal pain x 3 days. Epigastric to RUQ pain. Apple core lesion at hepatic flexure per CT at [place] yesterday. TECHNIQUE: Helically acquired images were obtained of the chest, abdomen and pelvis with intravenous contrast. This CT exam was performed using one or more of the following dose reduction techniques: automated exposure control, adjustment of the mA and/or kV according to patient size, and/or use of iterative reconstruction technique. This report was created using [employer] report [employer] technology. CONTRAST: Oral and amp; IV Gastrografin and amp; 100mL Isovue-370 RADIATION DOSE: CTDIvol = 15.05 mGy, DLP = 1420.15 mGy-cm COMPARISON: None. FINDINGS: CHEST: LUNGS AND PLEURAL SPACES: There is right pleural effusion. No mass. No pneumothorax. HEART: There are calcifications of the coronary arteries. Heart size is normal. No pericardial effusion. MEDIASTINUM: Unremarkable. No mediastinal or hilar adenopathy. Esophagus is unremarkable. No hiatal hernia. THYROID: Unremarkable. No thyroid lesions. ABDOMEN: LIVER: Unremarkable. Homogeneous. No focal mass. GALLBLADDER AND BILE DUCTS: Unremarkable. No calcified gallstones. No gallbladder distention or wall edema. No intra- or extrahepatic biliary ductal dilation. PANCREAS: Unremarkable. No focal cystic or solid mass. SPLEEN: Unremarkable. Normal size without focal cystic or solid mass. ADRENALS: Unremarkable. No nodules. KIDNEYS AND URETERS: Unremarkable. Normal renal size and position. No hydronephrosis. STOMACH AND BOWEL: Intussusception noted in the right upper quadrant. This is within the ascending colon. There is associated 37 x 51 mm colonic mass. This is consistent with the patient''s known history of colon cancer. It does not appear to be causing an obstruction presently. Surveillance is warranted. There is an umbilical hernia containing fat. There is no bowel involvement. There is no incarceration. There is no findings suggesting that this is causing a bowel obstruction. No focal inflammatory change. PELVIS: APPENDIX: No evidence of acute appendicitis. BLADDER: Unremarkable. REPRODUCTIVE: The uterus is not visualized and is most likely surgically absent. CHEST, ABDOMEN and PELVIS: INTRAPERITONEAL SPACE: Unremarkable. No ascites or other fluid collection. No free air. BONES/JOINTS: There are degenerative changes of the shoulders. There are multi-level degenerative changes of the thoracic spine. There is a Grade 1 anterolisthesis of L4 on L5. No suspicious lytic or blastic abnormality. SOFT TISSUES: Minimal inflammatory stranding noted in the right and left subcutaneous fat anteriorly. This can suggest insulin injection sites. VASCULATURE: There is atherosclerotic calcification of the aortic arch with tortuosity and elongation of the aortic arch and descending thoracic aorta. There are calcifications of the abdominal aorta. This is consistent for atherosclerotic disease. There is NO abdominal aortic aneurysm. Vascular workup can be obtained based on clinical correlation. No aortic dissection. No obvious central pulmonary embolism although this study was not performed with the pulmonary embolism protocol. LYMPH NODES: Unremarkable. No enlarged lymph nodes. CT/CT Chest, Abd, Pel w/Contrast IMPRESSION: 1. There is right pleural effusion. 2. Intussusception noted in the right upper quadrant. This is within the ascending colon. There is associated 37 x 51 mm colonic mass. This is consistent with the patient''s known history of colon cancer. It does not appear to be causing an obstruction presently. Surveillance is warranted. Electronically Signed: Jcarlos Sims MD at 20:29 EDT ,
[2022-02-16 16:46] LABS: Bedside Glucose 185 mg/dL (74-106)
[2022-02-16] MEDS: Pregabalin 75 MG Capsule 300 MG PO (21:38)
[2022-02-16] MEDS: Insulin Glargine-YFGN 100 UNIT/ML Pen 20 UNIT SC (21:38)
[2022-02-16] MEDS: Lisinopril 10 MG Tablet PO (23:06)
[2022-02-16] MEDS: 0.9% Saline Lock 10 ML Syringe IV (23:06)
[2022-02-17] VITALS (8 sets, daily range): BP systolic 128–149; BP diastolic 51–64; PULSE 68–76; RESP 15–18; TEMP 36.6–37.2; O2SAT 92–96
[2022-02-17 00:26] LABS: Bedside Glucose 151 mg/dL (74-106)
[2022-02-17] MEDS: Lactated Ringers 1,000 ML 100 ML IV ×2 (03:53→15:47)
[2022-02-17 05:30] LABS: Absolute Lymphocyte Count 0.66 X10^3/uL (0.83-4.51); Absolute Neutrophil Count 2.7 X10^3/uL (2.0-7.7); Basophil# 0.02 X10^3/uL; Basophil% 0.5 % (0-1); Eosinophil# 0.27 X10^3/uL; Eosinophils% 6.8 % (0-5); Hematocrit 25.8 % (37-47); Hemoglobin 7.9 g/dL (12.0-15.0); Lymphocyte # 0.66 X10^3/ul (0.83-4.51); Lymphocyte % 16.7 % (19-41); Mean Corp Hgb Conc 30.6 g/dL (32-36); Mean Corpuscular Hgb 26.7 pg (27.0-32.0); Mean Corpuscular Volume 87.2 fL (81-99); Mean Platelet Vol. 12.4 fl (6.2-12.0); Monocyte# 0.27 X10^3/uL; Monocyte% 6.8 % (0-10); NRBC Flagged by Analyzer 0 % (0-5); Neutrophil # 2.72 X10^3/uL (2.7-7.7); Neutrophil % 68.9 % (47-70); POSITIVE COUNT YES; Platelet Count 95 K/mm3 (150-450); RBC Distribution Width CV 14.4 % (11.6-14.6); Red Blood Count 2.96 M/mm3 (4.2-5.4)
[2022-02-17] MEDS: Sucralfate 1 GM Tablet PO ×3 (05:59→15:47)
[2022-02-17 06:01] LABS: AST(SGOT) 18 U/L (15-37); Alanine Aminotransfer ALT/SGPT 19 U/L (13-56); Albumin, Serum 2.2 g/dL (3.2-5.0); Alkaline Phosphatase 85 U/L (45-117); Anion Gap 5 (5-15); BUN 10 mg/dL (7-18); BUN/Creat Ratio 11.5 RATIO (10-20); Bilirubin, Direct 0.13 mg/dL (0.00-0.30); Calcium,Total 7.2 mg/dL (8.5-10.1); Chloride 109 mmol/L (98-107); Creatinine, Serum 0.87 mg/dL (0.55-1.02); EST Glomerular Filtration Rate 68 mL/min (>60); Est Glom Filt Rate - Afr Amer 82 mL/min (>60); Estimated Creatinine Clearance 42.16 ml/min; Globulin 3.3 g/dL (2.2-4.2); Glucose 100 mg/dL (74-106); Potassium 3.2 mmol/L (3.5-5.1); Protein, Total 5.5 g/dL (6.4-8.2); Sodium Level 142 mmol/L (136-145)
[2022-02-17 06:25] LABS: Bedside Glucose 103 mg/dL (74-106)
--- NOTE | 2022-02-17 07:28 | PCM.PN.SRG ---
Subjective Subjective Patient was seen in the examined during AM rounds and then later all in the course of the morning. She was found on the second trip sitting out of bed in the chair sipping some of her clear liquids. She denies any abdominal discomfort on both visits. She expresses a strong appetite. She wishes to convey that she recently had an abnormal mammogram and wonders how that should factor into our current discussions. Objective Data Objective Data Vital Signs: Vital Signs Temp Pulse Resp BP Pulse Ox O2 Del Method O2 Flow Rate 97.8 F 69 18 138/60 H 92 Room Air 2 02/17/22 02:20 02/17/22 02:20 02/17/22 02:20 02/17/22 02:20 02/17/22 02:22 02/17/22 02:22 02/15/22 18:49 Oxygen Flow Rate (L/min) 2 Oxygen Delivery Method Room Air Weight: 174 lb 14.389 oz Body Mass Index (BMI) 33.0 Intake & Output: Intake and Output for Last 24 Hours 02/15/22 02/16/22 02/17/22 23:59 23:59 23:59 Intake Total 2506.25 / 2506.25 1000 / 1000 Output Total 301 / 301 Balance 2205.25 / 2205.25 1000 / 1000 Lab / Micro Data Result Diagrams: 02/17/22 05:11 02/17/22 05:11 Labs: Laboratory Results - last 24 hr 02/16/22 05:07: Hemoglobin A1c 7.1 H 02/16/22 12:25: POC Glucose 156 H 02/16/22 12:46: Blood Type A POSITIVE, Antibody Screen NEGATIVE, Crossmatch See Detail 02/16/22 16:24: POC Glucose 185 H 02/16/22 21:36: POC Glucose 151 H 02/17/22 05:11: WBC 4.0 L, RBC 2.96 L, Hgb 7.9 L, Hct 25.8 L, MCV 87.2, MCH 26.7 L, MCHC 30.6 L, RDW Std Deviation 46.0 H, RDW Coeff of Kenneth 14.4, Plt Count 95 L, MPV 12.4 H, Immature Gran % (Auto) 0.300, Neut % (Auto) 68.9, Lymph % (Auto) 16.7 L, [place] % (Auto) 6.8, Eos % (Auto) 6.8 H, Baso % (Auto) 0.5, Absolute Neuts (auto) 2.7, Absolute Lymphs (auto) 0.66 L, Nucleated RBC % 0 02/17/22 05:11: Sodium 142, Potassium 3.2 L, Chloride 109 H, Carbon Dioxide 28.0, Anion Gap 5, BUN 10, Creatinine 0.87, Estim Creat Clear Calc 42.16, Est GFR (MDRD) Af Amer 82, Est GFR (MDRD) Non-Af 68, BUN/Creatinine Ratio 11.5, Glucose 100, Calcium 7.2 L, Total Bilirubin 0.30, Direct Bilirubin 0.13, AST 18, ALT 19, Alkaline Phosphatase 85, Total Protein 5.5 L, Albumin 2.2 L, Globulin 3.3 02/17/22 05:55: POC Glucose 103 Radiography Diagnostic Testing: Radiology Impression Abdomen X-Ray 02/16/22 10:40 IMPRESSION: The tip of the colonoscope is at the level of the hepatic flexure. Electronically Signed: Fortino Rangel MD at 11:28 EDT , Carotid Duplex 02/16/22 11:01 Interpretation Summary Minimal irregular plaque at the proximal right internal carotid artery with a less than 50% stenosis Less than 50% stenosis right external carotid artery Heterogenous plaque at the proximal left internal carotid artery with less than 50% stenosis Less than 50% stenosis left external carotid artery Patent and antegrade vertebral arteries bilaterally No change from the previous examination of November 20, 2017 Ordering Physician: Saurav Akbar Referring Physician: Марина Weir Performed By: Marilynn Almazan RVT Chest/Abdomen/Pelvis CT 02/16/22 16:41 IMPRESSION: 1. There is right pleural effusion. 2. Intussusception noted in the right upper quadrant. This is within the ascending colon. There is associated 37 x 51 mm colonic mass. This is consistent with the patient''s known history of colon cancer. It does not appear to be causing an obstruction presently. Surveillance is warranted. 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 This should not preclude proceeding with operative plans as detailed below. (2) Anemia: PLAN: Patient with drop in hemoglobin today to 7.9 g/dL. She is typed and screened/typed and crossed for the OR in the event of significant operative losses. I have advised the family that I like to be conservative about transfusions given the known risk for immunosuppression with such procedures. (3) Colonic mass: PLAN: This is a 76-year-old female, with a moderately complex past medical history, who presents with a new apple core lesion of the hepatic flexure. Colonoscopy yesterday confirmed the presence of this mass and intraprocedure frozen section confirmed it to be a malignant process. Furthermore, gastroenterology confirms this is a near obstructing mass. I have discussed these findings with both patient and her daughters who are in the room. This discussion was aided with review of recent CT of the chest abdomen and pelvis. I have recommended we proceed with right hemicolectomy. I would plan to do this in a laparoscopic fashion, but not knowing the depth of invasion of this tumor, will consent patient for possible laparotomy. I discussed, briefly, the procedure for and components of staging and how this will impact future treatment goals. I have advised holding off on any further investigation of patient's breast lesion at this time and simply focus on her colonic process at hand. ?Clear liquid diet and then n.p.o. at midnight ? A.m. laboratories ? Preoperative antibiotics ordered for on-call to the OR ? Patient typed and screened/typed and crossed for OR
[2022-02-17] MEDS: Potassium Chloride 10mEq/100mL 10 MEQ/100 ML IV.SOLN. 100 MEQ IV BOLUS ×4 (08:06→12:04)
[2022-02-17] MEDS: Allopurinol 100 MG Tablet PO ×2 (09:17→15:47)
[2022-02-17] MEDS: Pantoprazole Sodium 40 MG Tablet PO (09:18)
[2022-02-17] MEDS: Pregabalin 75 MG Capsule 300 MG PO ×2 (09:18→22:05)
[2022-02-17] MEDS: Lisinopril 10 MG Tablet PO (09:18)
[2022-02-17] MEDS: Acetaminophen 325 MG Tablet 650 MG PO (09:19)
[2022-02-17 10:38] LABS: Carcinoembryonic Antigen 15.5 ng/mL (0.0-4.7)
[2022-02-17 11:50] LABS: Bedside Glucose 94 mg/dL (74-106)
[2022-02-17] MEDS: Ferrous Sulfate 325 MG Tablet PO (12:04)
--- NOTE | 2022-02-17 13:51 | CASEMGMT ---
ANSLEY CM in to pt room, pt sitting up in chair with dtr and granddtr at bedside. Pt reports her aide is through [facility] and her skilled therapy is through [facility]. TC to [facility], spoke with Freida, she confirms pt is active with PT only. ANSLEY HUNTER to follow to resume services or add to services.
--- NOTE | 2022-02-17 15:17 | CHAPLAIN ---
Type of Pastoral Visit _x__ Initial Visit ___ Follow-up Visit ___ On-call Visit ___ General Patient Visit ___ Spiritual Assessment ___ Family Conference ___ Bereavement ___ Rapid Response ___ Code Blue ___ Other (describe below) Pastoral Care Referral From _x__ Patient ___ Family ___ Nurse ___ Physician ___ Cardio Clinician ___ Poacher Wringer Operator ___ Other (describe below) Sacrament/Intervention _x__ Active listening ___ Anointing ___ Anabaptist ___ Bereavement ___ Communion _x__ Stacy exploration ___ ___ Life review _x__ Prayer ___ Reconciliation ___ Sacrament of Sick ___ Supportive presence ___ Wedding ___ Other (describe below) Pastoral Comments two daughters of patient were leaving the room as this back tender fourdrinier entered; pt is sitting in chair and states I guess I'll know tomorrow how I'm doing; pt speaks briefly about her tumor/cancer surgery and says I guess it would have been good to know this sooner, but oh well; pt reaction is calm and mostly about what will be will be; pt describes a time when she prayed hard for a grandson and uses that as an example of how she will approach this situation; pt welcomes prayer and presence
--- NOTE | 2022-02-17 15:46 | PCM.PN.HOSP ---
Subjective Subjective Patient was seen and examined today, she does not complain of any abdominal pain at this time, labs today showed hemoglobin of 7.9, white blood cell count was slightly low at 4. Potassium was 3.2. Objective Data Objective Data Vital Signs: Vital Signs Temp Pulse Resp BP Pulse Ox O2 Del Method O2 Flow Rate 98.1 F 68 18 149/51 H 96 Room Air 2 02/17/22 14:27 02/17/22 14:27 02/17/22 14:27 02/17/22 14:27 02/17/22 14:27 02/17/22 14:27 02/15/22 18:49 Oxygen Flow Rate (L/min) 2 Oxygen Delivery Method Room Air Weight: 79.333 kg Body Mass Index (BMI) 33.0 Intake & Output: Intake and Output for Last 24 Hours 02/15/22 02/16/22 02/17/22 23:59 23:59 23:59 Intake Total 2506.25 / 2506.25 1400 / 1400 Output Total 301 / 301 Balance 2205.25 / 2205.25 1399 / 1399 Lab / Micro Data Result Diagrams: 02/17/22 05:11 02/17/22 05:11 Labs: Laboratory Results - last 24 hr 02/16/22 04:55: Carcinoembryonic Ag 15.5 H 02/16/22 16:24: POC Glucose 185 H 02/16/22 21:36: POC Glucose 151 H 02/17/22 05:11: WBC 4.0 L, RBC 2.96 L, Hgb 7.9 L, Hct 25.8 L, MCV 87.2, MCH 26.7 L, MCHC 30.6 L, RDW Std Deviation 46.0 H, RDW Coeff of Kenneth 14.4, Plt Count 95 L, MPV 12.4 H, Immature Gran % (Auto) 0.300, Neut % (Auto) 68.9, Lymph % (Auto) 16.7 L, [place] % (Auto) 6.8, Eos % (Auto) 6.8 H, Baso % (Auto) 0.5, Absolute Neuts (auto) 2.7, Absolute Lymphs (auto) 0.66 L, Nucleated RBC % 0 02/17/22 05:11: Sodium 142, Potassium 3.2 L, Chloride 109 H, Carbon Dioxide 28.0, Anion Gap 5, BUN 10, Creatinine 0.87, Estim Creat Clear Calc 42.16, Est GFR (MDRD) Af Amer 82, Est GFR (MDRD) Non-Af 68, BUN/Creatinine Ratio 11.5, Glucose 100, Calcium 7.2 L, Total Bilirubin 0.30, Direct Bilirubin 0.13, AST 18, ALT 19, Alkaline Phosphatase 85, Total Protein 5.5 L, Albumin 2.2 L, Globulin 3.3 02/17/22 05:55: POC Glucose 103 02/17/22 11:27: POC Glucose 94 Radiography Diagnostic Testing: Radiology Impression Carotid Duplex 02/16/22 11:01 Interpretation Summary Minimal irregular plaque at the proximal right internal carotid artery with a less than 50% stenosis Less than 50% stenosis right external carotid artery Heterogenous plaque at the proximal left internal carotid artery with less than 50% stenosis Less than 50% stenosis left external carotid artery Patent and antegrade vertebral arteries bilaterally No change from the previous examination of November 20, 2017 Ordering Physician: Saurav Akbar Referring Physician: Марина Weir Performed By: Marilynn Almazan, Ramila Chest/Abdomen/Pelvis CT 02/16/22 16:41 IMPRESSION: 1. There is right pleural effusion. 2. Intussusception noted in the right upper quadrant. This is within the ascending colon. There is associated 37 x 51 mm colonic mass. This is consistent with the patient''s known history of colon cancer. It does not appear to be causing an obstruction presently. Surveillance is warranted. Electronically Signed: Jcarlos Sims MD at 20:29 EDT , Physical Exam Const alert, oriented x3, no apparent distress and healthy appearing General Appearance: cooperative, well kempt and well developed Orientation / Consciousness: awake, oriented to person, oriented to place and oriented to time HEENT normocephalic and moist oral mucous membranes Eyes PERRL, EOMs intact bilaterally and conjunctivae normal Neck supple, no JVD, thyroid normal and no carotid bruits General: trachea midline Resp normal respiratory effort, no retractions, no use of accessory muscles and clear to auscultation bilaterally Auscultation: Negative for rales, rhonchi or wheezes Cardio regular rate, regular rhythm, S1 normal heart sound, S2 normal heart sound, no murmurs, no rub and no gallops GI normal to inspection, nondistended, normoactive bowel sounds, soft to palpation, non-tender and non-distended Extremity no clubbing, cyanosis or edema Skin no rashes or lesions noted General Skin Exam: no breakdown Neuro oriented x3, CN's II-XII intact bilaterally, no focal motor deficits and no sensory deficits noted Sensorium / Orientation: awake, alert, oriented to person, oriented to place and oriented to time Speech: speech normal Psych affect normal Assessment & Plan Assessment/Plan (1) Colonic mass: PLAN: Plan 1. Neoplasm of the colon at the hepatic [id number] will undergo surgery tomorrow, patient appears medically stable at this time #2 type 2 diabetes-blood sugars will be monitored, sliding scale insulin will be given per fingerstick blood sugar results #3 anemia secondary to chronic blood loss-patient's hemoglobin today was 7.9, CBC will be repeated tomorrow, I do not believe the patient needs a blood transfusion at this time #4 hypokalemia-patient will be given oral potassium supplementation #5 essential hypertension-patient will remain on her present medication #6 hyperlipidemia-patient will remain on her present medication #7 chronic depression-patient is currently on Zoloft #8 diabetic neuropathy-patient is on Lyrica Charges/Coding Visit Charges Inpatient E&M: 70969 Subs Hosp L2
[2022-02-17] MEDS: Potassium Chloride Oral Tablet 20 MEQ 40 MEQ PO (17:16)
[2022-02-17 17:40] LABS: Bedside Glucose 61 mg/dL (74-106)
[2022-02-17 18:20] LABS: Bedside Glucose 140 mg/dL (74-106)
--- NOTE | 2022-02-17 18:40 | PCM.PROGNOTE ---
Subjective Subjective Patient underwent colonoscopy yesterday and was discovered to have a mass at the level of the hepatic flexure with bleeding stigmata. She underwent a CT scan abdomen pelvis that showed circumferential mass at the level of the hepatic flexure. She is scheduled to have surgery tomorrow. Objective Data Objective Data Vital Signs: Vital Signs Temp Pulse Resp BP Pulse Ox O2 Del Method O2 Flow Rate 98.1 F 68 18 149/51 H 96 Room Air 2 02/17/22 14:27 02/17/22 14:27 02/17/22 14:27 02/17/22 14:27 02/17/22 14:27 02/17/22 14:27 02/15/22 18:49 Oxygen Flow Rate (L/min) 2 Oxygen Delivery Method Room Air Weight: 174 lb 14.389 oz Body Mass Index (BMI) 33.0 Intake & Output: Intake and Output for Last 24 Hours 02/15/22 02/16/22 02/17/22 23:59 23:59 23:59 Intake Total 2506.25 / 2506.25 2400 / 2400 Output Total 301 / 301 Balance 2205.25 / 2205.25 2399 / 2399 Lab / Micro Data Result Diagrams: 02/17/22 05:11 02/17/22 05:11 Labs: Laboratory Results - last 24 hr 02/16/22 04:55: Carcinoembryonic Ag 15.5 H 02/16/22 21:36: POC Glucose 151 H 02/17/22 05:11: WBC 4.0 L, RBC 2.96 L, Hgb 7.9 L, Hct 25.8 L, MCV 87.2, MCH 26.7 L, MCHC 30.6 L, RDW Std Deviation 46.0 H, RDW Coeff of Kenneth 14.4, Plt Count 95 L, MPV 12.4 H, Immature Gran % (Auto) 0.300, Neut % (Auto) 68.9, Lymph % (Auto) 16.7 L, [place] % (Auto) 6.8, Eos % (Auto) 6.8 H, Baso % (Auto) 0.5, Absolute Neuts (auto) 2.7, Absolute Lymphs (auto) 0.66 L, Nucleated RBC % 0 02/17/22 05:11: Sodium 142, Potassium 3.2 L, Chloride 109 H, Carbon Dioxide 28.0, Anion Gap 5, BUN 10, Creatinine 0.87, Estim Creat Clear Calc 42.16, Est GFR (MDRD) Af Amer 82, Est GFR (MDRD) Non-Af 68, BUN/Creatinine Ratio 11.5, Glucose 100, Calcium 7.2 L, Total Bilirubin 0.30, Direct Bilirubin 0.13, AST 18, ALT 19, Alkaline Phosphatase 85, Total Protein 5.5 L, Albumin 2.2 L, Globulin 3.3 02/17/22 05:55: POC Glucose 103 02/17/22 11:27: POC Glucose 94 02/17/22 17:14: POC Glucose 61 L 02/17/22 17:58: POC Glucose 140 H Radiography Diagnostic Testing: Radiology Impression Chest/Abdomen/Pelvis CT 02/16/22 16:41 IMPRESSION: 1. There is right pleural effusion. 2. Intussusception noted in the right upper quadrant. This is within the ascending colon. There is associated 37 x 51 mm colonic mass. This is consistent with the patient''s known history of colon cancer. It does not appear to be causing an obstruction presently. Surveillance is warranted. Electronically Signed: Jcarlos Smis MD at 20:29 EDT , Physical Exam Const alert, oriented x3, no apparent distress and healthy appearing General Appearance: cooperative, well kempt and well developed Orientation / Consciousness: awake, oriented to person, oriented to place and oriented to time HEENT normocephalic and moist oral mucous membranes Eyes PERRL, EOMs intact bilaterally and conjunctivae normal Neck supple, no JVD, thyroid normal and no carotid bruits General: trachea midline Resp normal respiratory effort, no retractions, no use of accessory muscles and clear to auscultation bilaterally Auscultation: Negative for rales, rhonchi or wheezes Cardio regular rate, regular rhythm, S1 normal heart sound, S2 normal heart sound, no murmurs, no rub and no gallops GI normal to inspection, nondistended, normoactive bowel sounds, soft to palpation, non-tender and non-distended Extremity no clubbing, cyanosis or edema Skin no rashes or lesions noted General Skin Exam: no breakdown Neuro oriented x3, CN's II-XII intact bilaterally, no focal motor deficits and no sensory deficits noted Sensorium / Orientation: awake, alert, oriented to person, oriented to place and oriented to time Speech: speech normal Psych affect normal Assessment & Plan Assessment/Plan (1) Colonic mass: PLAN: Colonic mass with partial bowel obstruction. She is not distended or uncomfortable at this time. She is scheduled for surgery tomorrow. CEA was sent and CT scan abdomen pelvis and chest did not show any signs of metastatic disease. Hopefully there is only local disease and she can do well with just a local resection. She will need oncology consultation along with PET scan in the near future. Charges/Coding Visit Charges Inpatient E&M: 39249 Subs Hosp L2
[2022-02-17] MEDS: HYDROcodone Bitartrate/Apap 5/325 Tablet PO (18:56)
[2022-02-17] MEDS: Sertraline 50 MG Tablet PO (22:06)
[2022-02-17 22:25] LABS: Bedside Glucose 142 mg/dL (74-106)
[2022-02-18] VITALS (16 sets, daily range): BP systolic 136–196; BP diastolic 56–91; PULSE 68–104; RESP 12–18; TEMP 36.6–37.6; O2SAT 92–98; BMI 33.0
--- NOTE | 2022-02-18 | IMM_PTH ---
PATIENT: LADI CUELLO LOC: MS3 U#:[id number] AGE/SX: 76/F ROOM: [facility]305 RE02/15/[address]: Dr. Sergei Wan MD : 1945 BED: 1 DIS: 02/21/2022 SPEC #: [id number] RECD: 02/23/22 13:15 STATUS: IHSAN REQ #: [id number] RAGHU: 02/18/22 00:[address]: Saurav Akbar DEPT: IMMUNOHISTOCHEMISTRY RECD BY: Shantel Mcclain ENTERED: 02/23/22 13:16 SP TYPE: IMMUNO OTHR DR: MD Dr. Yong Castellanos DO Dr. Hannah Miedel, MD Dr. Mark Tereletsky, DO Dr. Prakash Chand, MD Tissues: A - Right colon Procedures: MLH-1 (add) MSH6 (add) Anti-PMS2 (add) THOMPSON-2 (add) KI-67 (add) P53 (add) MSH2 (initial) PHYSICIAN & [address] [address] SPECIMEN INFORMATION: Tissue Source: A ? Right colon Clinical Info: Colonic mass Specimen Number: [id number] CPT code: 94520, 14832 x6 METHODOLOGY: Deparaffinized sections of prefer/formalin-fixed tissue or PAP/DQ stained slides are incubated with monoclonal/polyclonal antibodies/oligonucleotide probes. Localization is made via biotin free immunoperoxidase method. Appropriate controls are performed and reacted as expected. Results on target cell population are indicated in the following table: RESULTS: ANTIBODY / CLONE RESULT Block A4 MLH-1 (M1) positive MSH2 (25D12) positive MSH6 (44) positive PMS2 ([id number]) positive Ki-67 (30-9) positive, 50% P53 (DO-7) negative THOMPSON-2 (SP21) positive These tests were developed and their performance characteristics determined by [facility]. They may not have been cleared or approved by the U.S. Food and Drug Administration. The FDA has determined that such clearance or approval is not necessary. The above immunohistochemical/dualISH markers are ordered and reviewed by the Pathologist. INTERPRETATION: A. Right colon, hemicolectomy: Invasive mucinous adenocarcinoma. Result of Microsatellite Instability Study: Negative (no loss of mismatch protein; no microsatellite instability detected). AM:chirag 02/25/2022
--- NOTE | 2022-02-18 | COL._PTH ---
PATIENT: LADI CUELLO LOC: MS3 U#:[id number] AGE/SX: 76/F ROOM: [facility] RE02/15/[address]: Dr. Sergei Wan MD : 1945 BED: 1 DIS: 02/21/2022 SPEC #: [id number] RECD: 02/18/22 13:54 STATUS: IHSAN REQ #: [id number] RAGHU: 02/18/22 00:[address]: Saurav Akbar DEPT: SURGICAL PATHOLOGY RECD BY: Hu Obrien ENTERED: 02/21/22 10:03 SP TYPE: COLON OTHR DR: MD Dr. Yong Castellanos DO Dr. Hannah Miedel, MD Dr. Michael Bortz, MD Dr. Mark Tereletsky, DO Dr. Prakash Chand, MD Tissues: A - Colon, NOS B - Liver, NOS Procedures: PAS with Diastase (control) Trichrome (control) Special Stain Group II PAS Stain (control) Surgery Specimen Level V Surgery Specimen Level Retic (control) Iron Stain (control) Comments: @ Ordering doctor for SUV edited from to @ by ARJUN at 02/21/22 1251 @ Ordering doctor for SUVI edited from to @ by ARJUN at 02/21/22 1251 @ Submitting doctor edited from to @ by ARJUN at 02/21/22 1251 HEADER OPERATION: Laparoscopic hemicolectomy PRE-OP DIAGNOSIS: Colonic mass TISSUE SUBMITTED: A ? Right colon, B ? Liver biopsy MICROSCOPIC DIAGNOSIS A. Right colon, segmental colectomy: Invasive mucinous adenocarcinoma. See cancer synoptic report below. B. Liver, incisional biopsy: Negative for metastatic carcinoma. No evidence of cirrhosis. See comment. AM:chirag 02/23/2022 COMMENT A. COLON CANCER SUMMARY: Procedure ? right hemicolectomy Tumor site ? right colon Tumor size ? 5.5 x 4.5 x 3 cm Macroscopic tumor perforation ? not identified Histologic type ? mucinous adenocarcinoma Histologic grade ? grade G2 Tumor extension ? tumor invades muscularis propria. Margins ? all margins are uninvolved by invasive carcinoma, high-grade dysplasia or adenoma. Margins examined ? proximal, distal and serosal. Treatment effect - unknown Lymphvascular invasion ? not identified Perineural invasion - not identified Tumor deposits - not identified Regional lymph nodes ? 18 out of 18 lymph nodes free of metastatic carcinoma. Ancillary studies: See microsatellite instability study by IHC ([id number]) for complete details. Negative (no loss of mismatch protein; no microsatellite instability detected). Additional pathologic findings - none PATHOLOGIC STAGE: T3 N0 Mx The above summary is in compliance with [employer] Path[employer] (CAP) Cancer Protocols Checklist and [place] [employer] Committee on Cancer (AJCC), Staging Manual, 8th Ed. B. Special stains (iron, reticulin, PAS, PASD and trichrome) with matched controls were used in the evaluation of this case. Reference is made to the patient's previous colonic mass at hepatic flexure, biopsy ([id number]) in which invasive mucinous adenocarcinoma was identified. Case has been reviewed in consultation with Dr. Orourke who concurs with the above diagnosis. IDC:SJ MICROSCOPIC DESCRIPTION Slides are reviewed. GROSS DESCRIPTION A - Received in fixative is one container labeled with the patient's name and designated right colon. The specimen consists of a right hemicolectomy specimen consisting of cecum with ascending colon, attached adipose tissue and mesentery. The cecum with ascending colon measures 15 cm in length and segment of small intestine measures 15 cm in length. A small segment of small intestine is also noted 4.5 cm in length. The separate segment of colon also shows both stapled resection margins and proximal and distal resection margin of the right hemicolectomy specimen also shows stapled margins. Appendix is not identified. A separate piece of colonic tissue consistent with donut measuring 3.5 x 1 x 1 cm. The lumen contains fecal material and hemorrhagic fluid. 6 cm away from the distal resection margin, there is a cauliflower-like ulcerated tumor mass measuring 5.5 x 4.5 x 3 cm. No additional lesion is identified. Sections of the tumor mass reveal it involves full thickness of the bowel wall. Additional dictation will follow later. Pericolonic adipose tissue is fixed in lymph node revealing solution. / ELMO:chirag 02/21/2022 Sections of the pericolonic adipose tissue reveal multiple lymph nodes. The largest lymph node measures 1 cm in greatest dimension. Supervisor Machine Setter sections are submitted as follows: 1 - donut and piece of bowel disease, 2 - separate segment of small intestine 3 - proximal and distal resection margin, 4-7 - tumor, 8 - ileocecal valve and financial representative section of uninvolved large intestine, 9 - area of possible diverticula and uninvolved portion of small intestine, 10 - multiple lymph nodes, 11 - multiple lymph nodes, 12 - multiple lymph nodes, 13 - one lymph node, 14 - two lymph nodes. / SJ:chirag 02/22/2022 B - Received in fixative is one container labeled with the patient's name and designated liver biopsy. The specimen consists of a piece of lambert, indurated tissue measuring 1 x 0.4 x 0.3 cm. The entire specimen is submitted in one cassette. / SJ:chirag 02/21/2022 TC:0 CPT: 59340, 34467, 63545 x5
[2022-02-18] MEDS: Lactated Ringers 1,000 ML 100 ML IV (01:54)
[2022-02-18 06:17] LABS: Absolute Lymphocyte Count 0.72 X10^3/uL (0.83-4.51); Absolute Neutrophil Count 2.4 X10^3/uL (2.0-7.7); Basophil# 0.01 X10^3/uL; Basophil% 0.3 % (0-1); Eosinophil# 0.29 X10^3/uL; Eosinophils% 7.9 % (0-5); Hematocrit 27.3 % (37-47); Hemoglobin 8.4 g/dL (12.0-15.0); Lymphocyte # 0.72 X10^3/ul (0.83-4.51); Lymphocyte % 19.7 % (19-41); Mean Corp Hgb Conc 30.8 g/dL (32-36); Mean Corpuscular Hgb 27.5 pg (27.0-32.0); Mean Corpuscular Volume 89.5 fL (81-99); Mean Platelet Vol. 12.4 fl (6.2-12.0); Monocyte# 0.23 X10^3/uL; Monocyte% 6.3 % (0-10); NRBC Flagged by Analyzer 0 % (0-5); Neutrophil # 2.39 X10^3/uL (2.7-7.7); Neutrophil % 65.5 % (47-70); Platelet Count 114 K/mm3 (150-450); RBC Distribution Width CV 14.6 % (11.6-14.6); RBC Distribution Width SD 47.6 fl (35.1-43.9); Red Blood Count 3.05 M/mm3 (4.2-5.4); White Blood Count 3.7 K/mm3 (4.4-11.0)
[2022-02-18 06:45] LABS: Bedside Glucose 133 mg/dL (74-106)
--- NOTE | 2022-02-18 07:00 | PN_ITS ---
Subjective Subjective Patient underwent colonoscopy and was discovered to have a mass at the level of the hepatic flexure with bleeding stigmata.? She underwent a CT scan abdomen pelvis that showed circumferential mass at the level of the hepatic flexure.? She is scheduled to have surgery today. Objective Data Objective Data Vital Signs: Vital Signs Temp Pulse Resp BP Pulse Ox O2 Del Method O2 Flow Rate 99.6 F H 88 18 196/91 H 96 Nasal Cannula 3 02/18/22 18:08 02/18/22 18:17 02/18/22 18:08 02/18/22 18:08 02/18/22 18:08 02/18/22 18:08 02/18/22 18:08 Oxygen Flow Rate (L/min) 3 Oxygen Delivery Method Nasal Cannula Weight: 174 lb 14 oz Body Mass Index (BMI) 33.0 Intake & Output: Intake and Output for Last 24 Hours 02/16/22 02/17/22 02/18/22 23:59 23:59 23:59 Intake Total 2506.25 / 2506.25 2400 / 2400 2400 / 2400 Output Total 301 / 301 1 / 301 1110 / 1110 Balance 2205.25 / 2205.25 2399 / 2099 1290 / 1290 Lab / Micro Data Result Diagrams: 02/18/22 05:09 02/18/22 05:09 Labs: Laboratory Results - last 24 hr 02/16/22 12:46: Blood Type A POSITIVE, Antibody Screen NEGATIVE, Crossmatch See Detail 02/17/22 22:04: POC Glucose 142 H 02/18/22 05:09: WBC 3.7 L, RBC 3.05 L, Hgb 8.4 L, Hct 27.3 L, MCV 89.5, MCH 27.5, MCHC 30.8 L, RDW Std Deviation 47.6 H, RDW Coeff of Kenneth 14.6, Plt Count 1 14 L, MPV 12.4 H, Immature Gran % (Auto) 0.300, Neut % (Auto) 65.5, Lymph % (Auto) 19.7, [place] % (Auto) 6.3, Eos % (Auto) 7.9 H, Baso % (Auto) 0.3, Absolute Neuts (auto) 2.4, Absolute Lymphs (auto) 0.72 L, Nucleated RBC % 0 02/18/22 05:09: Sodium 143, Potassium 3.4 L, Chloride 109 H, Carbon Dioxide 25.0, Anion Gap 9, BUN 7, Creatinine 0.97, Estim Creat Clear Calc 37.81, Est GFR (MDRD) Af Amer 72, Est GFR (MDRD) Non-Af 59 L, BUN/Creatinine Ratio 7.2 L, Glucose 117 H, Calcium 8.5 02/18/22 06:18: POC Glucose 133 H 02/18/22 14:39: POC Glucose 164 H 02/18/22 16:37: POC Glucose 170 H Physical Exam Const alert, oriented x3, no apparent distress, average body habitus and healthy appearing General Appearance: cooperative, well kempt and well developed Orientation / Consciousness: awake, oriented to person, oriented to place and o riented to time HEENT normocephalic and moist oral mucous membranes Eyes PERRL, EOMs intact bilaterally and conjunctivae normal Neck supple, no JVD, thyroid normal and no carotid bruits General: trachea midline Resp normal respiratory effort, no retractions, no use of accessory muscles and clear to auscultation bilaterally Auscultation: Negative for rales, rhonchi or wheezes Cardio regular rate, regular rhythm, S1 normal heart sound, S2 normal heart sound, no murmurs, no rub and no gallops GI normal to inspection, nondistended, normoactive bowel sounds, soft to palpation, non-tender and non-distended Extremity no clubbing, cyanosis or edema Skin no rashes or lesions noted General Skin Exam: no breakdown Neuro oriented x3, CN's II-XII intact bilaterally, no focal motor deficits and no sensory deficits noted Sensorium / Orientation: awake and alert Speech: speech normal Psych affect normal Assessment & Plan Assessment/Plan (1) Colonic mass: PLAN: Large colonic mass in the colon as etiology of acute on chronic blood loss anemia. She is scheduled for surgery today. All questions answered by the patient and family. I will continue to follow. Charges/Coding Visit Charges Inpatient E&M: 22466 Subs Hosp L1
[2022-02-18 07:14] LABS: Anion Gap 9 (5-15); BUN 7 mg/dL (7-18); BUN/Creat Ratio 7.2 RATIO (10-20); Calcium,Total 8.5 mg/dL (8.5-10.1); Chloride 109 mmol/L (98-107); Creatinine, Serum 0.97 mg/dL (0.55-1.02); EST Glomerular Filtration Rate 59 mL/min (>60); Est Glom Filt Rate - Afr Amer 72 mL/min (>60); Estimated Creatinine Clearance 37.81 ml/min; Glucose 117 mg/dL (74-106); Potassium 3.4 mmol/L (3.5-5.1); Sodium Level 143 mmol/L (136-145)
[2022-02-18] MEDS: Potassium Chloride 10mEq/100mL 10 MEQ/100 ML IV.SOLN. 100 MEQ IV BOLUS ×2 (08:16→11:00)
--- NOTE | 2022-02-18 09:03 | PN.SURG_ITS ---
Subjective Subjective Patient seen and examined during AM rounds. She has found initially sleeping on my arrival to the room. She denies any significant abdominal pain. She denies any questions related to her planned procedure today. Objective Data Objective Data Vital Signs: Vital Signs Temp Pulse Resp BP Pulse Ox O2 Del Method O2 Flow Rate 98.1 F 68 18 154/56 H 95 Room Air 2 02/18/22 07:56 02/18/22 07:56 02/18/22 07:56 02/18/22 07:56 02/18/22 07:56 02/18/22 07:56 02/15/22 18:49 Oxygen Flow Rate (L/min) 2 Oxygen Delivery Method Room Air Weight: 174 lb 14 oz Body Mass Index (BMI) 33.0 Intake & Output: Intake and Output for Last 24 Hours 02/16/22 02/17/22 02/18/22 23:59 23:59 23:59 Intake Total 2506.25 / 2506.25 2400 / 2400 1000 / 1000 Output Total 301 / 301 1 / 301 300 / 300 Balance 2205.25 / 2205.25 2399 / 2099 700 / 700 Lab / Micro Data Result Diagrams: 02/18/22 05:09 02/18/22 05:09 Labs: Laboratory Results - last 24 hr 02/16/22 04:55: Carcinoembryonic Ag 15.5 H 02/17/22 11:27: POC Glucose 94 02/17/22 17:14: POC Glucose 61 L 02/17/22 17:58: POC Glucose 140 H 02/17/22 22:04: POC Glucose 142 H 02/18/22 05:09: WBC 3.7 L, RBC 3.05 L, Hgb 8.4 L, Hct 27.3 L, MCV 89.5, MCH 27.5, MCHC 30.8 L, RDW Std Deviation 47.6 H, RDW Coeff of Kenneth 14.6, Plt Count 114 L, MPV 12.4 H, Immature Gran % (Auto) 0.300, Neut % (Auto) 65.5, Lymph % (Auto) 19.7, [place] % (Auto) 6.3, Eos % (Auto) 7.9 H, Baso % (Auto) 0.3, Absolute Neuts (auto) 2.4, Absolute Lymphs (auto) 0.72 L, Nucleated RBC % 0 02/18/22 05:09: Sodium 143, Potassium 3.4 L, Chloride 109 H, Carbon Dioxide 25.0, Anion Gap 9, BUN 7, Creatinine 0.97, Estim Creat Clear Calc 37.81, Est GFR (MDRD) Af Amer 72, Est GFR (MDRD) Non-Af 59 L, BUN/Creatinine Ratio 7.2 L, Glucose 117 H, Calcium 8.5 02/18/22 06:18: POC Glucose 133 H Physical Exam Const oriented x3 and no apparent distress Resp normal respiratory effort GI GI Narrative: Nondistended, soft, nontender to palpation x4 quadrants Assessment & Plan Assessment/Plan (1) 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 This should not preclude proceeding with operative plans as detailed below. (2) Anemia: PLAN: Patient with some spontaneous improvement in her hemoglobin today to 8.4 g/dL. She is typed and screened/typed and crossed for the OR in the event of significant operative losses. I have advised the family that I like to be conservative about transfusions given the known risk for immunosuppression with such procedures. (3) Colonic mass: PLAN: This is a 76-year-old female, with a moderately complex past medical history, who presents with a new apple core lesion of the hepatic flexure. Colonoscopy 2 days ago confirmed the presence of this mass and intraprocedure frozen section confirmed it to be a malignant process. Furthermore, gastroenterology confirms this is a near obstructing mass. I have discussed these findings with both patient and her family. Plan to proceed to the operating room today for laparoscopic right hemicolectomy. Antibiotics ordered on-call to the OR. Patient with potassium repletion also ordered. Charges/Coding Visit Charges Inpatient E&M: 32020 Subs Hosp L2
[2022-02-18] MEDS: BUPIVACAINE LIPOSOME/PF 20 ML VIAL OPERA.SITE (09:41)
--- NOTE | 2022-02-18 10:09 | SUR.PREOP ---
pt took back to OR at 0942, report given to ANSLEY Marie regarding blood. Anesthesia will take over.
[2022-02-18] MEDS: 0.9% Normal Saline 1,000 ML 30 ML IV (11:45)
[2022-02-18] MEDS: Lactated Ringers 1,000 ML 15 ML IV (12:30)
--- NOTE | 2022-02-18 13:56 | OP.PCM_ITS ---
Report of Operation Date of Procedure: 02/18/22 Pre-Operative Diagnosis: 1. 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 Anemia Post-Operative Diagnosis: 1. 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 Anemia 3. Minuscule white nodularity of the left lobe of the liver Surgery/Procedure Performed:: 1. Hand-assisted laparoscopic right hemicolectomy with primary stapled [id number], functional end-to-end anastomosis 2. Tap block 3. Liver biopsy (source left lobe) Description of Surgical Findings:: Operation performed with curative intent: Yes Tumor location: Hepatic flexure Extent of colon and vascular resection: Right hemicolectomy with ligation of ileocolic and right branch of middle colic pedicles Surgeon: Saurav Akbar demonstrator sewing techniques: Daniel Moraes demonstrator sewing techniques: Fidelia Franco Type of Anesthesia: General/Supplemental Anesthesiologist: Yong Vasquez Specimen's removed: 1. Right colon 2. Left lobe liver nodule (source: Left lobe) Drains: None Estimated Blood Loss (mL): 150 Description of Procedure: After appropriate identification in the preoperative holding area patient was brought to the operating room where she was positioned supine on the operating table. There she was administered a general anesthetic and her preoperative antibiotics. A Norris catheter was inserted for accurate I&O monitoring during the procedure. Abdomen was prepped and draped in the usual sterile fashion and a formal timeout was conducted to confirm those present as well as the procedure details. Procedure was begun with Dowd entry of the supraumbilical position and insertion of a 12 mm balloon Dowd trocar. Pneumoperitoneum was established at 15 mmHg. Laparoscopic investigation revealed no inadvertent injury to the viscera below. There was evidence of significant adhesions between the anterior abdominal wall and the omentum?along with patient's prior open cholecystectomy incision. 3 total additional 5 mm trochars were placed under laparoscopic visualization in the suprapubic position, left lower quadrant and left upper quadrant. Through these ports the laparoscopic LigaSure was used to lyse the adhesions between the omentum and anterior abdominal wall. I then performed a laparoscopic inspection of the liver and found several white nodularities of the left lobe of the liver. I resolved to biopsy 1 of these nodules at the conclusion of the case. I then inspected the colon and found inking of the colon in the right upper quadrant directly at the level of the hepatic flexure. There was no gross invasion of the abdominal wall. With these observations, I began a lateral to medial mobilization of the right colon by dividing the attachments of the white line of Toldt on the right paracolic gutter. This was accomplished primarily with the use of laparoscopic LigaSure. I also divided the attachments between the terminal ileum and the pelvic brim taking care to elevate the specimen away from the retroperitoneum and ensure we are well away from the territory of the gonadal's, ureter, and iliacs. With this lateral to medial mobilization I then incised the hepatocolic ligament between the omentum and the superior border of the transverse colon. This plane was developed with the LigaSure device approaching the hepatic flexure. Then I placed in the hepatic flexure on traction and was able to fully mobilize the hepatic flexure. I transitioned to division of the ileocolic pedicle which I placed under traction by elevating the junction of the terminal ileum and the cecum. I opened the peritoneum over these vessels and carefully skeletonized the ileocolic vessels. It became apparent that were not quite down to the root of the mesentery as we had hoped so we extended this peritoneal rent more proximally. At this point I requested the assistance of my partner to expedite the remaining hepatic flexure mobilization as well as taking the identified vessels. Dr. Mavis Moraes sided this assistance. Two 10 mm Hem-o-bhanu clips were placed across the ileocolic vessels and they were divided distally with the LigaSure device. I then opened a window to the retroperitoneum and connected this to our prior dissection with the lateral to medial mobilization. At this point we tested the mobility of her specimen and found that it would easily come to the midline. With this check we decided to extracorporealized the specimen, perform a resection, and then our anastomosis. An approximately 9 cm longitudinal incision was extended from our supraumbilical port cephalad towards the xiphoid process and deepened down through the layers of the abdominal wall until he made peritoneal entry. Once we had completed this incision a medium size Sadi wound protector/retractor was placed. The specimen was delivered through this opening and we completed proximal and distal transection's with use of the JEAN PAUL stapler. The the remaining intervening mesentery was taken with the laparoscopic LigaSure device?trying to maximize the specimen in the mesocolon for an adequate, oncologic lymph node harvest. On the colonic side, the remaining colon appeared well perfused, but the small bowel side appeared slightly dusky, so we made the decision to transect slightly more proximally to ensure an adequately perfused anastomosis. The specimen was then passed off the field for pathologic processing. An enterotomy and colotomy were made with the remaining small bowel and colon, respectively. Then a 75 mm JEAN PAUL stapler was introduced through these openings and fired to produce our anastomosis. The common channel was closed with a [place] stapler. There were several small areas of bleeding along the staple line which were oversewn with 3-0 silk. A 3-0 silk stitch was also placed as a crotch stitch at the terminus of the staple line. Lastly a 3-0 Vicryl was used to close the mesenteric defect. Satisfied with this anastomosis, the bowel was returned to the peritoneum and the omentum was pulled down over the anastomosis. The peritoneum was then copiously irrigated with warmed, sterile saline until the effluent returned clear. Pneumoperitoneum was reestablished as the Sadi wound protector was twisted on itself and I then performed a tap block of the abdomen under laparoscopic visualization using a Exparel/saline mixture for a total volume of 100 mL. We begin to transition to closure, when we reminded of the n eed to perform liver biopsy. At this point the laparoscopic ports have been removed from the abdomen so I elected to perform in this biopsy in an open fashion. A nodule was located on the anterior surface of the left lobe of the liver and using the LigaSure device this was cored out of the liver in a hemostatic fashion. The specimen was passed off the field for pathology and a segment of Surgicel hemostatic agent was placed in the resulting concavity while manual pressure was applied to ensure hemostasis. After a wait period of 3 minutes this proved to be hemostatic and we proceeded with peritoneal closure. This was accomplished at the fascial level using #1 PDS in a continuous fashion running 2 separate strands from each end of our miniature laparotomy and tying them in the middle. Monocryl suture was used to close the skin in a subcuticular fashion both at this incision site and the remaining port sites. The patient was then awoken from anesthetic and taken to PACU for ongoing recovery. Complications None Admit VTE Documentation VTE Present on Admission: Yes VTE Mechan Device Prophylaxis: SCD's VTE Pharm Prophylaxis ordered?: No
[2022-02-18 15:05] LABS: Bedside Glucose 164 mg/dL (74-106)
--- NOTE | 2022-02-18 15:12 | PN.HOSP_ITS ---
Subjective Subjective She was seen and examined today before her surgery, she does not complain of any abdominal discomfort. Patient underwent a right hemicolectomy today. Objective Data Objective Data Vital Signs: Vital Signs Temp Pulse Resp BP Pulse Ox O2 Del Method O2 Flow Rate 98.5 F 68 16 165/66 H 95 Nasal Cannula 3 02/18/22 14:18 02/18/22 15:00 02/18/22 15:00 02/18/22 15:00 02/18/22 15:00 02/18/22 15:07 02/18/22 15:00 Oxygen Flow Rate (L/min) 3 Oxygen Delivery Method Nasal Cannula Weight: 79.322 kg Body Mass Index (BMI) 33.0 Intake & Output: Intake and Output for Last 24 Hours 02/16/22 02/17/22 02/18/22 23:59 23:59 23:59 Intake Total 2506.25 / 2506.25 2400 / 2400 2400 / 2400 Output Total 301 / 301 1 / 301 1050 / 1050 Balance 2205.25 / 2205.25 2399 / 2099 1350 / 1350 Lab / Micro Data Result Diagrams: 02/18/22 05:09 02/18/22 05:09 Labs: Laboratory Results - last 24 hr 02/16/22 12:46: Blood Type A POSITIVE, Antibody Screen NEGATIVE, Crossmatch See Detail 02/17/22 17:14: POC Glucose 61 L 02/17/22 17:58: POC Glucose 140 H 02/17/22 22:04: POC Glucose 142 H 02/18/22 05:09: WBC 3.7 L, RBC 3.05 L, Hgb 8.4 L, Hct 27.3 L, MCV 89.5, MCH 27. 5, MCHC 30.8 L, RDW Std Deviation 47.6 H, RDW Coeff of Kenneth 14.6, Plt Count 114 L , MPV 12.4 H, Immature Gran % (Auto) 0.300, Neut % (Auto) 65.5, Lymph % (Auto) 19.7, [place] % (Auto) 6.3, Eos % (Auto) 7.9 H, Baso % (Auto) 0.3, Absolute Neuts (auto) 2.4, Absolute Lymphs (auto) 0.72 L, Nucleated RBC % 0 02/18/22 05:09: Sodium 143, Potassium 3.4 L, Chloride 109 H, Carbon Dioxide 25.0, Anion Gap 9, BUN 7, Creatinine 0.97, Estim Creat Clear Calc 37.81, Est GFR (MDRD) Af Amer 72, Est GFR (MDRD) Non-Af 59 L, BUN/Creatinine Ratio 7.2 L, Gluc ose 117 H, Calcium 8.5 02/18/22 06:18: POC Glucose 133 H 02/18/22 14:39: POC Glucose 164 H Physical Exam Const alert, oriented x3, no apparent distress, average body habitus and healthy appearing General Appearance: cooperative, well kempt and well developed Orientation / Consciousness: awake, oriented to person, oriented to place and oriented to time HEENT normocephalic and moist oral mucous membranes Eyes PERRL, EOMs intact bilaterally and conjunctivae normal Neck supple, no JVD, thyroid normal and no carotid bruits General: trachea midline Resp normal respiratory effort, no retractions, no use of accessory muscles and clear to auscultation bilaterally Auscultation: Negative for rales, rhonchi or wheezes Cardio regular rate, regular rhythm, S1 normal heart sound, S2 normal heart sound, no murmurs, no rub and no gallops GI normal to inspection, nondistended, normoactive bowel sounds, soft to palpation, non-tender and non-distended Extremity no clubbing, cyanosis or edema Skin no rashes or lesions noted General Skin Exam: no breakdown Neuro oriented x3, CN's II-XII intact bilaterally, no focal motor deficits and no sensory deficits noted Sensorium / Orientation: awake and alert Speech: speech normal Psych affect normal Assessment & Plan Assessment/Plan (1) Colonic mass: PLAN: Plan 1. Neoplasm of the colon at the hepatic [id number], patient underwent a right hemicolectomy today #2 type 2 diabetes-blood sugars will be monitored, sliding scale insulin will be given per fingerstick blood sugar results #3 anemia secondary to chronic blood loss-patient's hemoglobin today was 8.4, CB C will be repeated tomorrow, I do not believe the patient needs a blood transfusion at this time #4 hypokalemia-patient will be given potassium supplementation #5 essential hypertension-patient will remain on her present medication #6 hyperlipidemia-patient will remain on her present medication #7 chronic depression-patient is currently on Zoloft #8 diabetic neuropathy-patient is on Lyrica Charges/Coding Visit Charges Inpatient E&M: 72850 Subs Hosp L2
--- NOTE | 2022-02-18 15:23 | CASEMGMT ---
Addendum entered by Mason Dietz 02/18/22 16:38: Pt has returned to room from surgery. Family @ bedside. Pt resting w/eyes closed/did not awaken while ANSLEY HUNTER in room. Dtr @ bedside and inquiring about HHC. She is asking for SN to be added to HHC services. Order placed for same. Dtr states pt has Passport services, CM is Magda. Aides are thru [facility]/8 hrs/week. (M,T,W,F 2 hrs each day) Granddaughter plans to stay w/pt some on . Dtr inquiring if pt may home oxygen, as she has desatted in the past after surgery. She was informed, if pt still requiring oxygen closer to discharge, home O2 ambulatory testing can be completed to determine if pt needs home O2. ANSLEY HUNTER also advised her to contact PCP for f/u, if pt does not qualify for O2 and if she has further concerns. Family deny having further discharge planning needs at this time. Addendum entered by Mason Dietz 02/18/22 15:48: Green sheet placed on chart for HHC. Addendum entered by Mason Dietz 02/18/22 15:46: [facility] order placed for HHC. CM to f/u with pt Sat re: if d/c plan remains the same and if she wants additional HHC services, other than PT. Original Note: ANSLEY HUNTER NOTE: To room to discuss discharge planning. Pt is still @ OR. Emperatriz SMITH RN, CM
[2022-02-18] MEDS: Insulin Lispro 100 UNIT/ML INSULN.PEN SC (16:39)
[2022-02-18 17:00] LABS: Bedside Glucose 170 mg/dL (74-106)
[2022-02-18] MEDS: hydrALAZINE 20 MG/ML Vial 10 MG IV (18:17)
[2022-02-18] MEDS: 0.9% Saline Lock 10 ML Syringe IV (18:18)
--- NOTE | 2022-02-18 19:30 | CPS ---
patient unable to perform/follow instructions at time of visit.
[2022-02-18] MEDS: HYDROmorphone 0.5 MG/0.5 ML SYRINGE 0.25 MG IV (21:02)
[2022-02-18] MEDS: Insulin Glargine-YFGN 100 UNIT/ML Pen 20 UNIT SC (21:03)
[2022-02-18] MEDS: Pregabalin 75 MG Capsule 300 MG PO (21:07)
[2022-02-18] MEDS: Sertraline 50 MG Tablet PO (21:08)
[2022-02-18] MEDS: Docusate Sodium 100 MG Capsule PO (21:08)
[2022-02-19] VITALS (13 sets, daily range): BP systolic 124–160; BP diastolic 52–72; PULSE 77–94; RESP 14–18; TEMP 36.8–37.9; O2SAT 90–96
[2022-02-19 00:02] LABS: Bedside Glucose 193 mg/dL (74-106)
[2022-02-19] MEDS: HYDROmorphone 0.5 MG/0.5 ML SYRINGE 0.25 MG IV ×2 (02:22→06:46)
[2022-02-19] MEDS: 0.9% Saline Lock 10 ML Syringe IV ×2 (02:22→06:46)
[2022-02-19 06:26] LABS: Bedside Glucose 146 mg/dL (74-106)
[2022-02-19 06:30] LABS: Absolute Lymphocyte Count 0.83 X10^3/uL (0.83-4.51); Absolute Neutrophil Count 5.3 X10^3/uL (2.0-7.7); Basophil# 0.01 X10^3/uL; Basophil% 0.2 % (0-1); Eosinophil# 0.01 X10^3/uL; Eosinophils% 0.2 % (0-5); Hematocrit 31.5 % (37-47); Hemoglobin 9.7 g/dL (12.0-15.0); Lymphocyte # 0.83 X10^3/ul (0.83-4.51); Lymphocyte % 12.6 % (19-41); Mean Corp Hgb Conc 30.8 g/dL (32-36); Mean Corpuscular Hgb 26.7 pg (27.0-32.0); Mean Corpuscular Volume 86.8 fL (81-99); Mean Platelet Vol. 11.6 fl (6.2-12.0); Monocyte# 0.47 X10^3/uL; Monocyte% 7.1 % (0-10); NRBC Flagged by Analyzer 0 % (0-5); Neutrophil # 5.25 X10^3/uL (2.7-7.7); Neutrophil % 79.4 % (47-70); Platelet Count 149 K/mm3 (150-450); RBC Distribution Width CV 14.6 % (11.6-14.6); RBC Distribution Width SD 46.2 fl (35.1-43.9); Red Blood Count 3.63 M/mm3 (4.2-5.4); White Blood Count 6.6 K/mm3 (4.4-11.0)
[2022-02-19 07:05] LABS: Anion Gap 9 (5-15); BUN 9 mg/dL (7-18); BUN/Creat Ratio 8.4 RATIO (10-20); Calcium,Total 8.3 mg/dL (8.5-10.1); Chloride 107 mmol/L (98-107); Creatinine, Serum 1.07 mg/dL (0.55-1.02); EST Glomerular Filtration Rate 53 mL/min (>60); Est Glom Filt Rate - Afr Amer 64 mL/min (>60); Estimated Creatinine Clearance 34.28 ml/min; Glucose 143 mg/dL (74-106); Magnesium 1.1 mg/dL (1.6-2.6); Phosphorus 5.2 mg/dL (2.5-4.9); Potassium 3.8 mmol/L (3.5-5.1); Sodium Level 142 mmol/L (136-145)
[2022-02-19] MEDS: Pregabalin 75 MG Capsule 300 MG PO ×2 (08:11→21:19)
[2022-02-19] MEDS: Docusate Sodium 100 MG Capsule PO ×2 (08:11→21:19)
[2022-02-19] MEDS: Pantoprazole Sodium 40 MG Tablet PO (08:11)
[2022-02-19] MEDS: Allopurinol 100 MG Tablet PO ×2 (08:12→16:33)
[2022-02-19] MEDS: Lisinopril 10 MG Tablet PO (08:12)
--- NOTE | 2022-02-19 09:33 | PN.SURG_ITS ---
Subjective Subjective Patient seen and examined during AM rounds. She is found sitting upright in bed. She is somewhat drowsy, but is attempting to trial things from her liquid breakfast. She denies any nausea with this intake. She has not been out of bed yet since surgery. She confirms that she had a small bowel movement overnight while sleeping. Objective Data Objective Data Vital Signs: Vital Signs Temp Pulse Resp BP Pulse Ox O2 Del Method O2 Flow Rate 98.3 F 81 18 154/72 H 96 Nasal Cannula 2 02/19/22 07:59 02/19/22 07:59 02/19/22 07:59 02/19/22 07:59 02/19/22 07:59 02/19/22 08:10 02/19/22 08:10 Oxygen Flow Rate (L/min) 2 Oxygen Delivery Method Nasal Cannula Weight: 174 lb 14 oz Body Mass Index (BMI) 33.0 Intake & Output: Intake and Output for Last 24 Hours 02/17/22 02/18/22 02/19/22 23:59 23:59 23:59 Intake Total 2400 / 2400 2700 / 2700 277.25 / 277.25 Output Total 301 1585 / 1585 250 / 250 Balance 2399 / 2099 1115 / 1115 27.25 / 27.25 Lab / Micro Data Result Diagrams: 02/19/22 05:35 02/19/22 05:35 Labs: Laboratory Results - last 24 hr 02/16/22 12:46: Blood Type A POSITIVE, Antibody Screen NEGATIVE, Crossmatch See Detail 02/18/22 14:39: POC Glucose 164 H 02/18/22 16:37: POC Glucose 170 H 02/18/22 20:51: POC Glucose 193 H 02/19/22 05:35: WBC 6.6, RBC 3.63 L, Hgb 9.7 L, Hct 31.5 L, MCV 86.8, MCH 26.7 L , MCHC 30.8 L, RDW Std Deviation 46.2 H, RDW Coeff of Kenneth 14.6, Plt Count 149 L, MPV 11.6, Immature Gran % (Auto) 0.500, Neut % (Auto) 79.4 H, Lymph % (Auto) 12.6 L, [place] % (Auto) 7.1, Eos % (Auto) 0.2, Baso % (Auto) 0.2, Absolute Neuts (auto) 5.3, Absolute Lymphs (auto) 0.83, Nucleated RBC % 0 02/19/22 05:35: Sodium 142, Potassium 3.8, Chloride 107, Carbon Dioxide 26.0, Anion Gap 9, BUN 9, Creatinine 1.07 H, Estim Creat Clear Calc 34.28, Est GFR (MDRD) Af Amer 64, Est GFR (MDRD) Non-Af 53 L, BUN/Creatinine Ratio 8.4 L, Glucose 143 H, Calcium 8.3 L, Phosphorus 5.2 H, Magnesium 1.1 L 02/19/22 06:00: POC Glucose 146 H Physical Exam Const oriented x3 and no apparent distress Resp normal respiratory effort Resp Narrative: Patient with 2 L nasal cannula in place GI GI Narrative: Nondistended, operative dressings intact with minimal strikethrough drainage, soft, appropriately tender to palpation?particularly in the right lower quadrant Assessment & Plan Assessment/Plan (1) Anemia: PLAN: Patient with postoperative improvement in her hemoglobin today to 9.7 g/dL. She did receive a unit and transfusion yesterday preoperatively. However this is favorable sign that operative losses were minimal. (2) Colonic mass: PLAN: This is a 76-year-old female, with a moderately complex past medical history, who presents with a new apple core lesion of the hepatic flexure. She is now postoperative day 1 from hand-assisted laparoscopic right hemicolectomy with primary [id number], stapled functional end-to-end anastomosis. She remains somewhat drowsy following the operation, but overall appears to be recovering as expected. I have discussed with her intraoperative findings and postoperative expectations to include early nutrition and mobilization to minimize her risk for postoperative complications. She is in agreement with these recommendations. Neuro: As needed Dilaudid, as needed acetaminophen, as needed ibuprofen, ice as needed to incisions Pulm/CV: Incentive spirometer, wean supplemental O2 as needed, will hold on any DVT chemoprophylaxis for least 1 additional day to establish CBC as stable FEN/GI: Monitor daily lytes. Potassium now repleted. Advance to full liquid diet today with supplements. Abdominal binder to be ordered from OR while cooper ent is mobilizing. : Discontinue Norris catheter today and follow for spontaneous void Heme/ID: Continue to monitor CBC with repeat labs in a.m. Endo: Diabetic/glucose management per hospitalist service Proph: SCDs, PT OT eval for assistance with mobilization postop Dispo: Continue inpatient stay Charges/Coding Visit Charges Inpatient E&M: 32372 Subs Hosp L2
--- NOTE | 2022-02-19 10:43 | PCM.PN.HOSP ---
Subjective Subjective Patient was seen and examined today, she has no complaints of any fever or chills, I talked briefly with surgery about her care. Surgery is going to discontinue her Norris catheter today which I agree with. Objective Data Objective Data Vital Signs: Vital Signs Temp Pulse Resp BP Pulse Ox O2 Del Method O2 Flow Rate 98.3 F 81 18 154/72 H 93 Nasal Cannula 2 02/19/22 10:20 02/19/22 10:20 02/19/22 10:20 02/19/22 10:20 02/19/22 10:20 02/19/22 10:20 02/19/22 10:20 Oxygen Flow Rate (L/min) 2 Oxygen Delivery Method Nasal Cannula Weight: 79.322 kg Body Mass Index (BMI) 33.0 Intake & Output: Intake and Output for Last 24 Hours 02/17/22 02/18/22 02/19/22 23:59 23:59 23:59 Intake Total 2400 / 2400 2700 / 2700 277.25 / 277.25 Output Total 301 1585 / 1585 250 / 250 Balance 2399 / 2099 1115 / 1115 27.25 / 27.25 Lab / Micro Data Result Diagrams: 02/19/22 05:35 02/19/22 05:35 Labs: Laboratory Results - last 24 hr 02/18/22 14:39: POC Glucose 164 H 02/18/22 16:37: POC Glucose 170 H 02/18/22 20:51: POC Glucose 193 H 02/19/22 05:35: WBC 6.6, RBC 3.63 L, Hgb 9.7 L, Hct 31.5 L, MCV 86.8, MCH 26.7 L, MCHC 30.8 L, RDW Std Deviation 46.2 H, RDW Coeff of Kenneth 14.6, Plt Count 149 L, MPV 11.6, Immature Gran % (Auto) 0.500, Neut % (Auto) 79.4 H, Lymph % (Auto) 12.6 L, [place] % (Auto) 7.1, Eos % (Auto) 0.2, Baso % (Auto) 0.2, Absolute Neuts (auto) 5.3, Absolute Lymphs (auto) 0.83, Nucleated RBC % 0 02/19/22 05:35: Sodium 142, Potassium 3.8, Chloride 107, Carbon Dioxide 26.0, Anion Gap 9, BUN 9, Creatinine 1.07 H, Estim Creat Clear Calc 34.28, Est GFR (MDRD) Af Amer 64, Est GFR (MDRD) Non-Af 53 L, BUN/Creatinine Ratio 8.4 L, Glucose 143 H, Calcium 8.3 L, Phosphorus 5.2 H, Magnesium 1.1 L 02/19/22 06:00: POC Glucose 146 H Physical Exam Const alert, oriented x3, no apparent distress, average body habitus and healthy appearing General Appearance: cooperative, well kempt and well developed Orientation / Consciousness: awake, oriented to person, oriented to place and oriented to time HEENT normocephalic, head/scalp atraumatic and moist oral mucous membranes Eyes PERRL, EOMs intact bilaterally and conjunctivae normal Neck supple, no JVD, thyroid normal and no carotid bruits General: trachea midline Resp normal respiratory effort, no retractions, no use of accessory muscles and clear to auscultation bilaterally Auscultation: Negative for rales, rhonchi or wheezes Cardio regular rate, regular rhythm, S1 normal heart sound, S2 normal heart sound, no murmurs, no rub and no gallops GI non-distended Extremity no clubbing, cyanosis or edema Skin no rashes or lesions noted General Skin Exam: no breakdown Neuro oriented x3, CN's II-XII intact bilaterally, no focal motor deficits and no sensory deficits noted Sensorium / Orientation: awake and alert Speech: speech normal Psych affect normal Assessment & Plan Assessment/Plan (1) Controlled type 2 diabetes mellitus with insulin therapy: (2) Colonic mass: PLAN: Plan 1. Neoplasm of the colon at the hepatic [id number]-[id number], postop day #1 right hemicolectomy #2 type 2 diabetes-blood sugars will be monitored, sliding scale insulin will be given per fingerstick blood sugar results #3 anemia secondary to chronic blood loss-patient's hemoglobin today was 9.7 #4 hypokalemia-resolved, patient's potassium today was 3.8 #5 essential hypertension-patient will remain on her present medication #6 hyperlipidemia-patient will remain on her present medication #7 chronic depression-patient is currently on Zoloft #8 diabetic neuropathy-patient is on Lyrica I have stopped the patient's ibuprofen, she had been hospitalized in January of this year for gastric ulcers, she has been on Carafate for a month, I discontinued her Carafate and left her on Protonix. I added Vicodin for pain. I discussed her care with surgery today. Charges/Coding Visit Charges Inpatient E&M: 75054 Subs Hosp L2
[2022-02-19] MEDS: Insulin Lispro 100 UNIT/ML INSULN.PEN SC ×2 (10:50→16:32)
[2022-02-19 11:41] LABS: Bedside Glucose 152 mg/dL (74-106)
[2022-02-19] MEDS: Ferrous Sulfate 325 MG Tablet PO (12:26)
[2022-02-19] MEDS: HYDROcodone Bitartrate/Apap 5/325 Tablet PO ×2 (12:28→21:20)
--- NOTE | 2022-02-19 16:09 | CM.ED ---
MARVA went into patient's room briefly to discuss with her her plans regarding HCPOA. Initially she said that she wanted Maren, her daughter to be the decision maker but then she said I want all of them so there won't be fighting. MARVA will update MS3 MARVA WHYTE
[2022-02-19 16:50] LABS: Bedside Glucose 183 mg/dL (74-106)
--- NOTE | 2022-02-19 18:36 | NURSING ---
This RN performed bladder scan on pt d/t no voiding since aburto was removed this morning. The greatest amount of urine observed was 30ml. Will continue to monitor.
[2022-02-19] MEDS: Sertraline 50 MG Tablet PO (21:19)
[2022-02-19] MEDS: Ensure Plus High Protein 120 ML LIQUID PO (21:20)
[2022-02-19] MEDS: Insulin Glargine-YFGN 100 UNIT/ML Pen 20 UNIT SC (22:16)
[2022-02-19 22:56] LABS: Bedside Glucose 260 mg/dL (74-106)
[2022-02-20] VITALS (10 sets, daily range): BP systolic 114–141; BP diastolic 54–58; PULSE 63–77; RESP 14–18; TEMP 36.3–37.3; O2SAT 92–98
[2022-02-20] MEDS: Insulin Lispro 100 UNIT/ML INSULN.PEN SC ×3 (06:25→15:48)
[2022-02-20] MEDS: 0.9% Normal Saline 1,000 ML 100 ML IV ×2 (06:28→15:48)
[2022-02-20] MEDS: 0.9% Saline Lock 10 ML Syringe IV (06:31)
[2022-02-20 07:05] LABS: Bedside Glucose 188 mg/dL (74-106)
[2022-02-20] MEDS: Pregabalin 75 MG Capsule 300 MG PO ×2 (07:52→21:13)
[2022-02-20] MEDS: Ensure Plus High Protein 120 ML LIQUID PO ×2 (07:52→21:16)
[2022-02-20] MEDS: Allopurinol 100 MG Tablet PO ×2 (07:52→17:06)
[2022-02-20] MEDS: Lisinopril 10 MG Tablet PO (07:52)
[2022-02-20] MEDS: Docusate Sodium 100 MG Capsule PO ×2 (07:52→21:13)
[2022-02-20] MEDS: Pantoprazole Sodium 40 MG Tablet PO (07:52)
--- NOTE | 2022-02-20 10:00 | PCM.PN.SRG ---
Subjective Subjective Patient feeling well minimal abdominal pain has passed flatus Objective Data Objective Data Vital Signs: Vital Signs Temp Pulse Resp BP Pulse Ox O2 Del Method O2 Flow Rate 97.4 F L 63 16 123/58 H 97 Nasal Cannula 2 02/20/22 09:55 02/20/22 09:55 02/20/22 09:55 02/20/22 09:55 02/20/22 09:55 02/20/22 09:55 02/20/22 09:55 Oxygen Flow Rate (L/min) 2 Oxygen Delivery Method Nasal Cannula Weight: 79.322 kg Body Mass Index (BMI) 33.0 Intake & Output: Intake and Output for Last 24 Hours 02/18/22 02/19/22 02/20/22 23:59 23:59 23:59 Intake Total 2700 / 2700 1077.25 / 1077.25 Output Total 1585 / 1585 400 / 650 250 / 250 Balance 1115 / 1115 677.25 / 427.25 -250 / -250 Lab / Micro Data Attestation: I reviewed the patient's lab results. Result Diagrams: 02/19/22 05:35 02/19/22 05:35 Labs: Laboratory Results - last 24 hr 02/19/22 10:48: POC Glucose 152 H 02/19/22 16:28: POC Glucose 183 H 02/19/22 22:12: POC Glucose 260 H 02/20/22 06:23: POC Glucose 188 H Physical Exam Const alert, oriented x3 and no apparent distress Constitutional Narrative: talking on phone with her relatives General Appearance: cooperative and comfortable Neck supple Resp normal respiratory effort Effort and Inspection: able to speak in complete sentences GI GI Narrative: abdomen - benign Assessment & Plan Assessment/Plan (1) Abdominal pain: PLAN: s/p laparoscopic assisted colectomy patient appears to be recovering well without complications continue present therapy
[2022-02-20] MEDS: HYDROcodone Bitartrate/Apap 5/325 Tablet PO ×2 (10:57→20:09)
[2022-02-20 11:21] LABS: Bedside Glucose 218 mg/dL (74-106)
--- NOTE | 2022-02-20 11:52 | PCM.PN.HOSP ---
Subjective Subjective Patient was seen and examined today, she has had some difficulty urinating at times, she had a straight cath performed yesterday, fluids were started last night in an attempt to increase patient's urine output. Patient states she is passing gas. Objective Data Objective Data Vital Signs: Vital Signs Temp Pulse Resp BP Pulse Ox O2 Del Method O2 Flow Rate 97.4 F L 63 16 123/58 H 97 Nasal Cannula 2 02/20/22 09:55 02/20/22 09:55 02/20/22 09:55 02/20/22 09:55 02/20/22 09:55 02/20/22 09:55 02/20/22 09:55 Oxygen Flow Rate (L/min) 2 Oxygen Delivery Method Nasal Cannula Weight: 79.322 kg Body Mass Index (BMI) 33.0 Intake & Output: Intake and Output for Last 24 Hours 02/18/22 02/19/22 02/20/22 23:59 23:59 23:59 Intake Total 2700 / 2700 1077.25 / 1077.25 Output Total 1585 / 1585 400 / 650 250 / 250 Balance 1115 / 1115 677.25 / 427.25 -250 / -250 Lab / Micro Data Result Diagrams: 02/19/22 05:35 02/19/22 05:35 Labs: Laboratory Results - last 24 hr 02/19/22 16:28: POC Glucose 183 H 02/19/22 22:12: POC Glucose 260 H 02/20/22 06:23: POC Glucose 188 H 02/20/22 10:54: POC Glucose 218 H Physical Exam Narrative alert, oriented x3, no apparent distress, average body habitus and healthy appearing General Appearance: cooperative, well kempt and well developed Orientation / Consciousness: awake, oriented to person, oriented to place and oriented to time HEENT normocephalic, head/scalp atraumatic and moist oral mucous membranes Eyes PERRL, EOMs intact bilaterally and conjunctivae normal Neck supple, no JVD, thyroid normal and no carotid bruits General: trachea midline Resp normal respiratory effort, no retractions, no use of accessory muscles and clear to auscultation bilaterally Auscultation: Negative for rales, rhonchi or wheezes Cardio regular rate, regular rhythm, S1 normal heart sound, S2 normal heart sound, no murmurs, no rub and no gallops GI non-distended Extremity no clubbing, cyanosis or edema Skin no rashes or lesions noted General Skin Exam: no breakdown Neuro oriented x3, CN's II-XII intact bilaterally, no focal motor deficits and no sensory deficits noted Sensorium / Orientation: awake and alert Speech: speech normal Psych affect normal Assessment & Plan Assessment/Plan (1) Colonic mass: (2) Controlled type 2 diabetes mellitus with insulin therapy: PLAN: Plan 1. Neoplasm of the colon at the hepatic [id number], postop day #2 right hemicolectomy #2 type 2 diabetes-blood sugars will be monitored, sliding scale insulin will be given per fingerstick blood sugar results #3 anemia secondary to chronic blood loss-last charted hemoglobin was stable #4 hypokalemia-resolved #5 essential hypertension-patient will remain on her present medication #6 hyperlipidemia-patient will remain on her present medication #7 chronic depression-patient is currently on Zoloft #8 diabetic neuropathy-patient is on Lyrica #9 urinary retention-patient may need reinsertion of Norris catheter for temporary urinary retention, if the patient is not able to void today, I will also start Flomax. Charges/Coding Visit Charges Inpatient E&M: 10371 Subs Hosp L2
[2022-02-20] MEDS: Ferrous Sulfate 325 MG Tablet PO (12:14)
--- NOTE | 2022-02-20 15:59 | NURSING ---
Pt voided 150ml urine at about 1400. Performed bladder scan to make sure there was not more urine being retained. Bladder scan showed 34ml urine. Will continue to monitor
[2022-02-20 16:26] LABS: Bedside Glucose 281 mg/dL (74-106)
[2022-02-20] MEDS: Acetaminophen 325 MG Tablet 650 MG PO (17:06)
[2022-02-20] MEDS: Sertraline 50 MG Tablet PO (21:14)
[2022-02-20] MEDS: Insulin Glargine-YFGN 100 UNIT/ML Pen 20 UNIT SC (21:14)
[2022-02-20 21:50] LABS: Bedside Glucose 242 mg/dL (74-106)
[2022-02-21] VITALS (9 sets, daily range): BP systolic 125–158; BP diastolic 55–73; PULSE 69–78; RESP 14–18; TEMP 36.6–36.9; O2SAT 89–97
[2022-02-21] MEDS: 0.9% Normal Saline 1,000 ML 100 ML IV ×2 (02:17→12:27)
[2022-02-21] MEDS: 0.9% Saline Lock 10 ML Syringe IV ×2 (02:29→12:27)
[2022-02-21] MEDS: Insulin Lispro 100 UNIT/ML INSULN.PEN SC ×2 (06:11→11:35)
[2022-02-21] MEDS: Acetaminophen 325 MG Tablet 650 MG PO ×2 (06:23→16:49)
[2022-02-21 07:00] LABS: Bedside Glucose 153 mg/dL (74-106)
--- NOTE | 2022-02-21 07:32 | PCM.PN.HOSP ---
Subjective Subjective Patient is a 76-year-old lady who presented with abdominal pain imaging studies demonstrated an ascending colon apple core lesion at the hepatic flexure. General surgery consulted patient underwent right hemicolectomy by Dr. Akbar on 02/18/2022 Objective Data Objective Data Vital Signs: Vital Signs Temp Pulse Resp BP Pulse Ox O2 Del Method O2 Flow Rate 97.9 F 69 14 125/55 H 95 Nasal Cannula 2 02/21/22 05:00 02/21/22 05:00 02/21/22 05:00 02/21/22 05:00 02/21/22 05:00 02/21/22 05:00 02/21/22 05:00 Oxygen Flow Rate (L/min) 2 Oxygen Delivery Method Nasal Cannula Weight: 79.322 kg Body Mass Index (BMI) 33.0 Intake & Output: Intake and Output for Last 24 Hours 02/19/22 02/20/22 02/21/22 23:59 23:59 23:59 Intake Total 1077.25 / 1077.25 1683.33 / 1683.33 1000 / 1000 Output Total 400 / 650 400 / 525 375 / 375 Balance 677.25 / 427.25 1283.33 / 1158.33 625 / 625 Lab / Micro Data Result Diagrams: 02/19/22 05:35 02/19/22 05:35 Labs: Laboratory Results - last 24 hr 02/16/22 12:46: Crossmatch See Detail 02/20/22 10:54: POC Glucose 218 H 02/20/22 15:46: POC Glucose 281 H 02/20/22 21:12: POC Glucose 242 H 02/21/22 06:08: POC Glucose 153 H Physical Exam Narrative GENERAL: cooperative HEENT: Atraumatic; normocephalic EYES; Anicteric, Normal Conjunctiva NECK; supple, normal thyroid, RESPIRATORY: Diminished to auscultation CARDIOVASCULAR: Regular S1 S2, GI: soft, normoactive bowel sounds, : No Renal angle tenderness; EXTREMITIES: No edema, no clubbing, MUSCULOSKELETAL: no muscle wasting NEURO: Awake; no lateralizing signs. SKIN: No Rash PSYCH; Flat affect Assessment & Plan Assessment/Plan (1) Colonic mass: (2) Controlled type 2 diabetes mellitus with insulin therapy: PLAN: Plan Patient is a 76-year-old lady who presented with abdominal pain imaging studies demonstrated an ascending colon apple core lesion at the hepatic flexure. General surgery consulted patient underwent right hemicolectomy by Dr. Akbar on 02/18/2022 1. 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 Status post right hemicolectomy on 02/18/[address] Akbar ? Patient started on regular diet starting 02/22/2020 2. Anemia - Secondary to chronic disorder monitoring H&H and transfuse if patient becomes symptomatic or hemoglobin falls below 7 3. Hypokalemia ? Corrected per protocol repeat labs ordered for monitoring 4. Diabetes mellitus type II -patient's oral hypoglycemics held. Placed on long acting insulin, Accu-Cheks a.c. and at bedtime and covered with sliding scale insulin 5. Dyslipidemia -Patient is on statin therapy, continued at home dose 6. Hypertension - Blood pressure controlled, home medications continued with dose adjustment as needed 7. 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 Patient is on antiplatelet therapy with Plavix 8. History of pulmonary embolism ? On 12/25/2017 9. Gout ? Patient is on allopurinol 10. DVT prophylaxis ? [place] Lovenox Charges/Coding Visit Charges Inpatient E&M: 13501 Subs Hosp L2
[2022-02-21] MEDS: HYDROcodone Bitartrate/Apap 5/325 Tablet PO (08:11)
[2022-02-21] MEDS: Allopurinol 100 MG Tablet PO (08:13)
--- NOTE | 2022-02-21 09:45 | CASEMGMT ---
Addendum entered by Anahi Kaur 02/21/22 13:21: DC summary uploaded to [facility] and sent to [facility]. Pt to be dc'd today. Addendum entered by Anahi Kaur 02/21/22 13:10: Received tc from Georgina at [facility], they are able to accept pt for services. Addendum entered by Anahi Kaur 02/21/22 11:18: Referral to [facility] sent via [facility] at this time. Original Note: ANSLEY CM in to pt room, pt sitting up in chair eating breakfast. Pt states she is doing well and still plans to return home with [facility] and her passport. Pt denies further needs at this time.
[2022-02-21] MEDS: Docusate Sodium 100 MG Capsule PO (10:13)
[2022-02-21] MEDS: Pregabalin 75 MG Capsule 300 MG PO (10:13)
[2022-02-21] MEDS: Lisinopril 10 MG Tablet PO (10:13)
[2022-02-21] MEDS: Pantoprazole Sodium 40 MG Tablet PO (10:13)
[2022-02-21] MEDS: Enoxaparin 40 MG/0.4 ML Syringe SC (10:14)
[2022-02-21] MEDS: Ensure Plus High Protein 120 ML LIQUID PO (10:14)
--- NOTE | 2022-02-21 10:45 | PCM.PN.SRG ---
Subjective Subjective Patient is a 76 y/o F I am following s/p right hemicolectomy. Patient is evaluated sitting in the chair. She notes very minimal amount of incisional discomfort. She notes passing flatus. She denies any BM. She denies any nausea. She states she is able to urinate completely. She is ready for solid food. She has been ambulating well. Objective Data Objective Data Vital Signs: Vital Signs Temp Pulse Resp BP Pulse Ox O2 Del Method O2 Flow Rate 98.4 F 78 18 148/73 H 93 Room Air 2 02/21/22 07:58 02/21/22 07:58 02/21/22 07:58 02/21/22 07:58 02/21/22 08:33 02/21/22 08:33 02/21/22 05:00 Oxygen Flow Rate (L/min) 2 Oxygen Delivery Method Room Air Weight: 174 lb 14 oz Body Mass Index (BMI) 33.0 Intake & Output: Intake and Output for Last 24 Hours 02/19/22 02/20/22 02/21/22 23:59 23:59 23:59 Intake Total 1077.25 / 1077.25 1683.33 / 1683.33 1000 / 1000 Output Total 400 / 650 400 / 525 375 / 375 Balance 677.25 / 427.25 1283.33 / 1158.33 625 / 625 Lab / Micro Data Result Diagrams: 02/19/22 05:35 02/19/22 05:35 Labs: Laboratory Results - last 24 hr 02/16/22 12:46: Crossmatch See Detail 02/20/22 10:54: POC Glucose 218 H 02/20/22 15:46: POC Glucose 281 H 02/20/22 21:12: POC Glucose 242 H 02/21/22 06:08: POC Glucose 153 H Physical Exam GI GI Narrative: Incisions c/d/i. No erythema or infection noted. Abdomen is soft. Hypoactive bowel sounds. Abdomen obese and slightly distended. Assessment & Plan Assessment/Plan (1) Colonic mass: PLAN: Recommend increasing to transitional diet Continue to ambulate 3 times in the hallway Abdominal pain well controlled Dr. Gupta is covering for Dr. Akbar today We will continue to monitor this patient Plan for discharge tomorrow Charges/Coding Visit Charges Inpatient E&M: 10265 Subs Hosp L1 (No charge; post-op)
--- NOTE | 2022-02-21 10:59 | CASEMGMT ---
Pt screened with [facility] Palliative Care Screening Tool, pt did not meet criteria.
[2022-02-21] MEDS: Ferrous Sulfate 325 MG Tablet PO (11:35)
[2022-02-21 11:50] LABS: Bedside Glucose 277 mg/dL (74-106)
--- NOTE | 2022-02-21 12:59 | DS.PCM_ITS ---
Providers Date of Admission: 02/15/22 Date of Discharge: 02/21/22 Primary Care Physician: Dr. Марина Weir MD Consultations 02/15/22 18:43 Consult: Gastroenterology Routine Consulting Provider: [facility] Reason for Consult: colon mass EMERGENT Consult: No Notified: Yes Date Notified: 02/15/22 Time Notified: 18:35 Method of Notification: Verbal Consult: General Surgery Routine Consulting Provider: Saurav Akbar Reason for Consult: colon mass EMERGENT Consult: No Notified: Yes Date Notified: 02/15/22 Time Notified: 18:35 Method of Notification: Text Reason For Visit: ABDOMINAL PAIN, COLON MASS Diagnosis Discharge Diagnosis (1) Colonic mass: Status: Acute Code(s): K63.89 - Other specified diseases of intestine Plan Patient is a 76-year-old lady who presented with abdominal pain imaging studies demonstrated an ascending colon apple core lesion at the hepatic flexure. General surgery consulted patient underwent right hemicolectomy by Dr. Akbar on 02/18/2022 1. 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 Status post right hemicolectomy on 02/18/[address] Akbar ? Patient started on regular diet starting 02/22/2020 -Patient was discharged home to follow-up with general surgery as outpatient 2. Anemia - Secondary to chronic disorder monitoring H&H and transfuse if patient becomes symptomatic or hemoglobin falls below 7 3. Hypokalemia ? Corrected per protocol repeat labs ordered for monitoring 4. Diabetes mellitus type II -patient's oral hypoglycemics held. Placed on long acting insulin, Accu-Cheks a.c. and at bedtime and covered with sliding scale insulin 5. Dyslipidemia -Patient is on statin therapy, continued at home dose 6. Hypertension - Blood pressure controlled, home medications continued with dose adjustment as needed 7. 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 Patient is on antiplatelet therapy with Plavix 8. History of pulmonary embolism ? On 12/25/2017 9. Gout ? Patient is on allopurinol 10. DVT prophylaxis ? [place] Lovenox Medications at Discharge Home Medications cholecalciferol (vitamin D3) 25 mcg (1,000 unit) tablet 5,000 unit PO DAILY supplement 02/21/17 allopurinol 100 mg tablet 1 tab PO DAILY gout 08/15/17 ferrous sulfate 325 mg (65 mg iron) tablet 325 mg PO DAILY supplement 12/13/17 aspirin 81 mg chewable tablet 81 mg PO DAILY blood thinner 01/02/18 lisinopril 10 mg tablet 5 mg PO BID BP 06/16/20 sertraline 50 mg tablet 50 mg PO QHS depression 06/16/20 atorvastatin 40 mg tablet 40 mg PO QHS cholesterol 07/15/20 famotidine 40 mg tablet 40 mg PO BID reflux 07/15/20 pregabalin 300 mg capsule 300 mg PO BID nerve pain 03/02/21 hydrocodone-acetaminophen 5-325mg 5mg-325mg 1 tab PO Q6H PRN PRN Pain 3 days #12 TABLETS 03/18/21 insulin detemir U-100 100 unit/mL (3 mL) subcutaneous pen (Levemir FlexTouch U- 100 Insulin) 36 unit subcut QHS diabetes 04/12/21 insulin lispro 100 unit/mL subcutaneous pen 16 unit SC BREAKFAST diabetes 04/12/21 insulin lispro 100 unit/mL subcutaneous pen 16 unit subcut LUNCH diabetes 04/12/21 insulin lispro 100 unit/mL subcutaneous pen 18 unit subcut DINNER diabetes 04/12/21 docusate sodium 50 mg capsule 50 mg PO DAILY PRN PRN Constipation 01/16/22 sucralfate 1 gram tablet 1 g PO TIDAC 30 days #90 tabs 01/19/22 calcium carbonate 600 mg calcium (1,500 mg) tablet (Calcium) 600 mg PO BID supplement 02/16/22 clopidogrel 75 mg tablet 75 mg DAILY blood clot 02/16/22 food supplemt, lactose-reduced 0.08 gram-1.5 kcal/mL oral liquid (Ensure Plus High Protein) 120 ml PO BID 30 days #3,600 mL 02/21/22 pantoprazole 40 mg tablet,delayed release 40 mg PO DAILY 90 days #90 tabs 02/21/22 Hospital Course Summary of Care Provided Minutes Spent on Discharge: 35 Physical Exam Narrative GENERAL: cooperative HEENT: Atraumatic; normocephalic EYES; Anicteric, Normal Conjunctiva NECK; supple, normal thyroid, RESPIRATORY: Diminished to auscultation CARDIOVASCULAR: Regular S1 S2, GI: soft, normoactive bowel sounds, : No Renal angle tenderness; EXTREMITIES: No edema, no clubbing, MUSCULOSKELETAL: no muscle wasting NEURO: Awake; no lateralizing signs. SKIN: No Rash PSYCH; Flat affect Weight / BMI Weight Weight: 79.322 kg Body Mass Index (BMI) 33.0 ABG / Lab / Microbiology Data Result Diagrams: 02/19/22 05:35 02/19/22 05:35 Laboratory: Laboratory Results - last 24 hr 02/20/22 15:46: POC Glucose 281 H 02/20/22 21:12: POC Glucose 242 H 02/21/22 06:08: POC Glucose 153 H 02/21/22 11:19: POC Glucose 277 H D/C Instructions Discharge Diet: Soft diet and 1800 Calorie Control Diet Discharge Activity: Return to Normal Activity Call your doctor if you observe: Fever of 101 or Higher, Shortness of breath, Fainting spells and Chest pain Meaningful Use Info Meaningful Use Diagnoses (Choose all that apply): None applicable Discharge Plan Admission Admit Date/Time: 02/15/22 18:31 Attending Provider: Sergei Wan Primary Care Provider: Марина Weir Consulting Providers: Saurav Akbar ; Yong Calix ; Todd Catherine ; Erick Waldron Discharge Orders/Prescriptions Prescriptions: New pantoprazole 40 mg Tablet,Delayed Release (Dr/Ec) 40 mg PO DAILY 90 Days Qty: 90 0RF Ensure Plus High Protein 0.08 gram-1.5 kcal/mL Liquid 120 ml PO BID 30 Days Qty: 3600 0RF Continued allopurinol 100 mg tablet 1 tab PO DAILY lisinopril 10 mg tablet 5 mg PO BID sertraline 50 mg tablet 50 mg PO QHS cholecalciferol (vitamin D3) 1,000 UNIT tablet 5,000 unit PO DAILY ferrous sulfate 325 MG tablet 325 mg PO DAILY aspirin 81 MG tablet,chewable 81 mg PO DAILY Hold Instructions: Resume on 01/24/22. atorvastatin 40 MG tablet 40 mg PO QHS famotidine 40 MG tablet 40 mg PO BID pregabalin 300 mg capsule 300 mg PO BID hydrocodone-acetaminophen 5-325 mg tablet 1 tab PO Q6H PRN PRN (Reason: Pain) 3 Days Qty: 12 0RF insulin lispro 100 unit/mL insulin pen 16 unit SUBCUT LUNCH insulin lispro 100 unit/mL insulin pen 18 unit SUBCUT DINNER Levemir FlexTouch U-100 Insuln 100 unit/mL (3 mL) insulin pen 36 unit SUBCUT QHS insulin lispro 100 UNIT/ML insulin pen 16 unit SC BREAKFAST docusate sodium 50 mg Capsule 50 mg PO DAILY PRN PRN (Reason: Constipation) sucralfate 1 gram Tablet 1 g PO TIDAC 30 Days Qty: 90 0RF clopidogrel 75 mg tablet 75 mg DAILY calcium carbonate [Calcium 600] 600 mg calcium (1,500 mg) Tablet 600 mg PO BID Referrals / Follow Up: Марина Weir MD [Primary Care Provider] - Saurav Akbar MD [Med Staff - Active Staff] - Within 2 Weeks Disposition Disposition (needs filled in before D/C Order can be placed): Home Health Service Charges/Coding Visit Charges Inpatient E&M: 04233 Disch Hosp
--- NOTE | 2022-02-21 13:33 | PHA.DC.MR ---
Pharmacy Service has performed discharge medication reconciliation for this patient. The patient's discharge medication list was reviewed for discrepancies and discrepancies were resolved. Unable to admitting counselor, medications reviewed. Home Medications cholecalciferol (vitamin D3) 25 mcg (1,000 unit) tablet 5,000 unit PO DAILY supplement 02/21/17 allopurinol 100 mg tablet 1 tab PO DAILY gout 08/15/17 ferrous sulfate 325 mg (65 mg iron) tablet 325 mg PO DAILY supplement 12/13/17 aspirin 81 mg chewable tablet 81 mg PO DAILY blood thinner 01/02/18 lisinopril 10 mg tablet 5 mg PO BID BP 06/16/20 sertraline 50 mg tablet 50 mg PO QHS depression 06/16/20 atorvastatin 40 mg tablet 40 mg PO QHS cholesterol 07/15/20 famotidine 40 mg tablet 40 mg PO BID reflux 07/15/20 pregabalin 300 mg capsule 300 mg PO BID nerve pain 03/02/21 hydrocodone-acetaminophen 5-325mg 5mg-325mg 1 tab PO Q6H PRN PRN Pain 3 days #12 TABLETS 03/18/21 insulin detemir U-100 100 unit/mL (3 mL) subcutaneous pen (Levemir FlexTouch U-100 Insulin) 36 unit subcut QHS diabetes 04/12/21 insulin lispro 100 unit/mL subcutaneous pen 16 unit SC BREAKFAST diabetes 04/12/21 insulin lispro 100 unit/mL subcutaneous pen 16 unit subcut LUNCH diabetes 04/12/21 insulin lispro 100 unit/mL subcutaneous pen 18 unit subcut DINNER diabetes 04/12/21 docusate sodium 50 mg capsule 50 mg PO DAILY PRN PRN Constipation 01/16/22 sucralfate 1 gram tablet 1 g PO TIDAC 30 days #90 tabs 01/19/22 calcium carbonate 600 mg calcium (1,500 mg) tablet (Calcium) 600 mg PO BID supplement 02/16/22 clopidogrel 75 mg tablet 75 mg DAILY blood clot 02/16/22 food supplemt, lactose-reduced 0.08 gram-1.5 kcal/mL oral liquid (Ensure Plus High Protein) 120 ml PO BID 30 days #3,600 mL 02/21/22 pantoprazole 40 mg tablet,delayed release 40 mg PO DAILY 90 days #90 tabs 02/21/22
--- NOTE | 2022-02-21 14:23 | DCINST_ITS ---
Discharge Instructions Procedure General Surgery Diet Discharge Diet: - (transitional- low fiber) Activity Discharge Activity: May Not Drive (No driving for 1 week or while taking narcotic pain meds.) and May Shower Lifting Restrictions: 15 pounds x 2 weeks Dressing / Incision Call your doctor if your incision/area has: Continuous Slow Oozing, Sudden Increased Bleeding, Increased Pain/ Swelling, Increased Redness and Foul Smelling Discharge Call your doctor if you observe: Fever of 101 or Higher, Shortness of breath, Fainting spells and Chest pain Suture Line Care: Avoid Pulling/Pushing and Avoid Pinching/Bending Additional Dressing/Incision Instructions:: ok to remove dressing. Leave steri-strips in place 7 to 10 days from surgery-- okay to remove after 10 days if they do not fall off. Follow Up Care Please Follow Up With: Saurav Akbar MD When: Please call [phone] to make a follow up appointment in 1-2 weeks . Test Results: Test results from this visit will be discussed in further detail at your follow- up appointment, if applicable. Discharge Plan Admission Admit Date/Time: 02/15/22 18:31 Attending Provider: Sergei Wan Primary Care Provider: Марина Weir Consulting Providers: Saurav Akbar ; Yong Calix ; Todd Catherine ; Erick Waldron Discharge Orders/Prescriptions Prescriptions: New pantoprazole 40 mg Tablet,Delayed Release (Dr/Ec) 40 mg PO DAILY 90 Days Qty: 90 0RF Ensure Plus High Protein 0.08 gram-1.5 kcal/mL Liquid 120 ml PO BID 30 Days Qty: 3600 0RF Continued allopurinol 100 mg tablet 1 tab PO DAILY lisinopril 10 mg tablet 5 mg PO BID sertraline 50 mg tablet 50 mg PO QHS cholecalciferol (vitamin D3) 1,000 UNIT tablet 5,000 unit PO DAILY ferrous sulfate 325 MG tablet 325 mg PO DAILY aspirin 81 MG tablet,chewable 81 mg PO DAILY Hold Instructions: Resume on 01/24/22. atorvastatin 40 MG tablet 40 mg PO QHS famotidine 40 MG tablet 40 mg PO BID pregabalin 300 mg capsule 300 mg PO BID hydrocodone-acetaminophen 5-325 mg tablet 1 tab PO Q6H PRN PRN (Reason: Pain) 3 Days Qty: 12 0RF insulin lispro 100 unit/mL insulin pen 16 unit SUBCUT LUNCH insulin lispro 100 unit/mL insulin pen 18 unit SUBCUT DINNER Levemir FlexTouch U-100 Insuln 100 unit/mL (3 mL) insulin pen 36 unit SUBCUT QHS insulin lispro 100 UNIT/ML insulin pen 16 unit SC BREAKFAST docusate sodium 50 mg Capsule 50 mg PO DAILY PRN PRN (Reason: Constipation) sucralfate 1 gram Tablet 1 g PO TIDAC 30 Days Qty: 90 0RF clopidogrel 75 mg tablet 75 mg DAILY calcium carbonate [Calcium 600] 600 mg calcium (1,500 mg) Tablet 600 mg PO BID Referrals / Follow Up: Марина Weir MD [Primary Care Provider] - Saurav Akbar MD [Med Staff - Active Staff] - Within 2 Weeks Disposition Disposition (needs filled in before D/C Order can be placed): Home Health Service
--- NOTE | 2022-02-22 14:50 | CASEMGMT ---
Received notification that [facility] was calling regarding pt. TC to [facility], spoke with Nereyda, she states they were providing the SN for pt and [facility] was providing an aide. Made her aware that it was confirmed that therapy was through [facility] and dc orders were sent to them. She was not aware that [facility] was also seeing pt.
== END 2022-02-21 16:55 | disposition home health service (06) | DRG 329 ==
PROVIDERS: Anesthesiology; Internal Medicine; Internal Medicine Gastroenterology; Surgery; PCP Family Medicine; Visit Provider Internal Medicine
PROC: 0DJD8ZZ Inspection of Lower Intestinal Tract, Via Natural or Artificial Opening Endoscopic (ICD-10-PCS; CPT 45378; principal; 2022-02-16 10:25)
PROC: 0DTF0ZZ Resection of Right Large Intestine, Open Approach (ICD-10-PCS; CPT 44205; principal; 2022-02-18 09:10)
DX: C18.3 Malignant neoplasm of hepatic flexure (principal); K25.4 Chronic or unspecified gastric ulcer with hemorrhage; D62 Acute posthemorrhagic anemia; D63.1 Anemia in chronic kidney disease; E11.22 Type 2 diabetes mellitus with diabetic chronic kidney disease; E11.40 Type 2 diabetes mellitus with diabetic neuropathy, unspecified; D63.0 Anemia in neoplastic disease; E04.2 Nontoxic multinodular goiter; Z79.4 Long term (current) use of insulin; E78.5 Hyperlipidemia, unspecified; N18.9 Chronic kidney disease, unspecified; I12.9 Hypertensive chronic kidney disease with stage 1 through stage 4 chronic kidney disease, or unspecified chronic kidney disease; E87.6 Hypokalemia; M10.9 Gout, unspecified; I65.23 Occlusion and stenosis of bilateral carotid arteries; K57.30 Diverticulosis of large intestine without perforation or abscess without bleeding; K59.09 Other constipation; K76.89 Other specified diseases of liver; K66.0 Peritoneal adhesions (postprocedural) (postinfection); G89.29 Other chronic pain; F32.A Depression, unspecified; R33.9 Retention of urine, unspecified; Z95.818 Presence of other cardiac implants and grafts; Z90.49 Acquired absence of other specified parts of digestive tract; Z79.02 Long term (current) use of antithrombotics/antiplatelets; Z79.82 Long term (current) use of aspirin; Z79.899 Other long term (current) drug therapy; Z86.73 Personal history of transient ischemic attack (TIA), and cerebral infarction without residual deficits; Z86.711 Personal history of pulmonary embolism; Z28.310 Unvaccinated for COVID-19; Z28.9 Immunization not carried out for unspecified reason; Z80.0 Family history of malignant neoplasm of digestive organs
CPT/HCPCS: 36415; 71260; 74019; 74177; 80048; 80053; 80076; 82248; 82378; 82962; 83036; 83735; 84100; 85025; 85610; 85730; 86850; 86900; 86901; 86920; 86922; 88305; 88307; 88309; 88313; 88331; 88341; 88342; 93005; 93880; 94762; 97110; 97116; 97162; 97166; 97530; 97535; 99251; J7030; J7040; J7120; P9016; Q9967; A4216; A4648; G0463; J2405

== ENCOUNTER → 2022-02-23 | Outpatient (CLI) | payer MEDICARE, MEDICAID, SELFPAY ==
--- NOTE | 2022-02-23 14:34 | VDLE_ITS ---
Reason For Study: swelling RIGHT LEFT CFV is compressible, spontaneous, phasic, GSV is normal. competent and demonstrates normal CFV is compressible, spontaneous, phasic, augmentation. competent, and demonstrates normal Procedure augmentation. This is a venous duplex using B-mode, color FV is compressible, spontaneous, phasic, flow and spectral Doppler. competent and demonstrates normal Exam performed in department. augmentation. The exam was diagnostic. POP V is compressible, spontaneous, phasic, A preliminary report was called and/or faxed competent and demonstrates normal to Niyah Farrell. augmentation. T/P Trunk is compressible. PTV is compressible. LT PerV is compressible. VL/Venous Duplex US, Unilateral Interpretation Summary There is no evidence of left lower extremity deep vein thrombosis. Left great s aphenous vein appears patent and compressible segmentally. Normal flow patterns right common femoral vein Ordering Physician: Niyah Farrell Performed By: Helio Richardson RVRamila
== END | disposition home or self-care (01) ==
LOC: CVS 14:33
PROVIDERS: PCP Family Medicine; Visit Provider Physician Assistant
DX: M79.89 Other specified soft tissue disorders (principal)
CPT/HCPCS: 93971

== ENCOUNTER → 2022-02-24 | Outpatient (CLI) | payer MEDICARE, MEDICAID, SELFPAY ==
[2022-02-24 15:11] LABS: Absolute Lymphocyte Count 1.07 X10^3/uL (0.83-4.51); Absolute Neutrophil Count 4.8 X10^3/uL (2.0-7.7); Basophil# 0.05 X10^3/uL; Basophil% 0.7 % (0-1); Eosinophil# 0.38 X10^3/uL; Eosinophils% 5.7 % (0-5); Hematocrit 31.3 % (37-47); Hemoglobin 9.6 g/dL (12.0-15.0); Lymphocyte # 1.07 X10^3/ul (0.83-4.51); Lymphocyte % 15.9 % (19-41); Mean Corp Hgb Conc 30.7 g/dL (32-36); Mean Corpuscular Hgb 26.5 pg (27.0-32.0); Mean Corpuscular Volume 86.5 fL (81-99); Mean Platelet Vol. 11.1 fl (6.2-12.0); Monocyte% 4.5 % (0-10); NRBC Flagged by Analyzer 0 % (0-5); Neutrophil # 4.83 X10^3/uL (2.7-7.7); Platelet Count 214 K/mm3 (150-450); RBC Distribution Width CV 14.9 % (11.6-14.6); RBC Distribution Width SD 47.3 fl (35.1-43.9); Red Blood Count 3.62 M/mm3 (4.2-5.4); White Blood Count 6.7 K/mm3 (4.4-11.0)
[2022-02-24 15:29] LABS: ALB/GLOB Ratio 0.6 RATIO (0.9-2.4); AST(SGOT) 32 U/L (15-37); Alanine Aminotransfer ALT/SGPT 23 U/L (13-56); Albumin, Serum 2.7 g/dL (3.2-5.0); Alkaline Phosphatase 112 U/L (45-117); Anion Gap 7 (5-15); BUN 12 mg/dL (7-18); BUN/Creat Ratio 10.8 RATIO (10-20); Calcium,Total 9.1 mg/dL (8.5-10.1); Chloride 108 mmol/L (98-107); Creatinine, Serum 1.11 mg/dL (0.55-1.02); EST Glomerular Filtration Rate 51 mL/min (>60); Est Glom Filt Rate - Afr Amer 62 mL/min (>60); Globulin 4.2 g/dL (2.2-4.2); Glucose 149 mg/dL (74-106); Potassium 3.4 mmol/L (3.5-5.1); Protein, Total 6.9 g/dL (6.4-8.2); Sodium Level 143 mmol/L (136-145)
== END | disposition home or self-care (01) ==
PROVIDERS: PCP Family Medicine; Referring Provider Surgery; Visit Provider Surgery
DX: R10.9 Unspecified abdominal pain (principal)
CPT/HCPCS: 36415; 80053; 85025

== ENCOUNTER 2022-03-14 14:38 | Emergency (ER) | payer MEDICARE, MEDICAID, SELFPAY ==
[2022-03-14 14:39] VITALS: BP 174/103; PULSE 71; RESP 18; TEMP 36.7; O2SAT 100; BMI 30.2
--- NOTE | 2022-03-14 14:53 | CT_ITS ---
EXAM: CT CHEST, ABDOMEN AND PELVIS WITH INTRAVENOUS CONTRAST CLINICAL INDICATION: right ribcage injury/fall, sob TECHNIQUE: Helically acquired images were obtained of the chest, abdomen and pelvis with intravenous contrast. This CT exam was performed using one or more of the following dose reduction techniques: automated exposure control, adjustment of the mA and/or kV according to patient size, and/or use of iterative reconstruction technique. This report was created using [employer] report generation technology. CONTRAST: IV 100mL Isovue-300 RADIATION DOSE: CTDIvol = 15.37 mGy, DLP = 1260.07 mGy-cm COMPARISON: ct Feb 16 2022 7:30pm FINDINGS: CHEST: LUNGS AND PLEURAL SPACES: Right lower lobe calcified granuloma. No follow up required. No mass. No pleural effusion or thickening. No pneumothorax. HEART: There are coronary arterial calcifications. Heart size is normal. No pericardial effusion. MEDIASTINUM: Unremarkable. No mediastinal or hilar adenopathy. Esophagus is unremarkable. No hiatal hernia. THYROID: Unremarkable. No thyroid lesions. ABDOMEN: LIVER: Unremarkable. Homogeneous. No focal mass. GALLBLADDER AND BILE DUCTS: The gallbladder is surgically absent. No intra- or extrahepatic biliary ductal dilation. PANCREAS: Unremarkable. No focal cystic or solid mass. SPLEEN: Unremarkable. Normal size without focal cystic or solid mass. ADRENALS: Unremarkable. No nodules. KIDNEYS AND URETERS: Unremarkable. Normal renal size and position. No hydronephrosis. STOMACH AND BOWEL: Focal wall thickening of the antrum of stomach. This can suggest a gastritis. Evidence for recent right hemicolectomy changes. No stomach or bowel distention. PELVIS: APPENDIX: See above. BLADDER: Unremarkable. REPRODUCTIVE: The uterus is not visualized and is most likely surgically absent. CHEST, ABDOMEN and PELVIS: INTRAPERITONEAL SPACE: Unremarkable. No ascites or other fluid collection. No free air. BONES/JOINTS: No rib fracture visualized. There is a Grade 1 anterolisthesis of L4 on L5. No suspicious lytic or blastic abnormality. SOFT TISSUES: Anterior abdominal wall subcutaneous inflammatory changes consistent for recent port placement. No discrete abdominal or pelvic wall hernia. VASCULATURE: There are thoracic aortic calcifications consistent for atherosclerotic disease. There is no dissection or hematoma noted in the thoracic aorta. There are calcifications of the abdominal aorta. This is consistent for atherosclerotic disease. There is NO abdominal aortic aneurysm. Vascular workup can be obtained based on clinical correlation. No obvious central pulmonary embolism although this study was not performed with the pulmonary embolism protocol. LYMPH NODES: Unremarkable. No enlarged lymph nodes. TUBES, LINES AND DEVICES: Loop recorder noted. CT/CT Chest, Abd, Pel w/Contrast IMPRESSION: 1. Focal wall thickening of the antrum of stomach. This can suggest a gastritis. 2. Evidence for recent right hemicolectomy changes. 3. No rib fracture visualized. Electronically Signed: Jcarlos Sims MD at 16:38 EST ,
--- NOTE | 2022-03-14 14:56 | EDS_ITS ---
HPI HPI - Fall History of Present Illness Chief Complaint: Chest Other Informant: patient and family Occured/Mechanism Occurred: Yesterday Mechanism/Context: Yes same level fall and Yes slip Narrative: in wet bathtub accidentally; injured right posterior ribcage/back, RUE Pain/Injury Quality of Pain: Aching Current Severity: Severe Maximum Severity: Severe Worsened by: movement, breathing Relieved by: rest/remaining still Associated Symptoms Associated Symptoms: Negative for Parasthesias, Weakness, Loss of function, Inability to ambulate, Loss of consciousness or Amnesia Narrative Narrative: Patient lives at home and she has an aide 4 times a week. Last night she was getting a bath on Monday her aide was not there and she slipped in the bathtub and fell against the side of the tub, injuring her left side/back, and her right upper extremity. This occurred yesterday. She has been having a lot of pain and trouble getting around since then but she has been able to. She has been able to stand and walk. A little short of breath. Some mild abdominal pain, she states she is concerned because she had a mass removed from her abdomen and part of her colon operated on about a month ago. [facility] Medical History (Updated 03/14/22 @ 17:[address] Nadeem Marion MD) Adnexal mass Amaurosis fugax of right eye Anemia Arthritis Back problem Carpal tunnel syndrome Cataracts, bilateral Chronic kidney disease Closed head injury (12/17/20) Colon cancer Concussion (12/17/20) Controlled type 2 diabetes mellitus with insulin therapy Essential (primary) hypertension GERD (gastroesophageal reflux disease) Goiter Gout History of CVA (cerebrovascular accident) (01/06/20) History of pulmonary embolus (PE) (12/2017) Hyperlipemia IBS (irritable bowel syndrome) Iron deficiency anemia due to chronic blood loss Neuropathy Osteoarthritis of right knee Osteoporosis PUD (peptic ulcer disease) Seasonal allergies 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) Stroke Syncope Thyroid goiter Thyroid nodule Home Medications cholecalciferol (vitamin D3) 25 mcg (1,000 unit) tablet 5,000 unit PO DAILY supplement 02/21/17 [History Last Taken 10/29/17] allopurinol 100 mg tablet 1 tab PO DAILY gout 08/15/17 [History Last Taken 10/29/17] ferrous sulfate 325 mg (65 mg iron) tablet 325 mg PO DAILY supplement 12/13/17 [History Last Taken Unknown] aspirin 81 mg chewable tablet 81 mg PO DAILY blood thinner 01/02/18 [History Last Taken Unknown] lisinopril 10 mg tablet 5 mg PO BID BP 06/16/20 [History Last Taken Unknown] sertraline 50 mg tablet 50 mg PO QHS depression 06/16/20 [History Last Taken Unknown] atorvastatin 40 mg tablet 40 mg PO QHS cholesterol 07/15/20 [History Last Taken Unknown] famotidine 40 mg tablet 40 mg PO BID reflux 07/15/20 [History Last Taken Unknown] pregabalin 300 mg capsule 300 mg PO BID nerve pain 03/02/21 [History Last Taken Unknown] insulin detemir U-100 100 unit/mL (3 mL) subcutaneous pen (Levemir FlexTouch U- 100 Insulin) 36 unit subcut QHS diabetes 04/12/21 [History Last Taken Unknown] insulin lispro 100 unit/mL subcutaneous pen 16 unit subcut BREAKFAST diabetes 04/12/21 [History Last Taken Unknown] insulin lispro 100 unit/mL subcutaneous pen 16 unit subcut LUNCH diabetes 04/12/21 [History Last Taken Unknown] insulin lispro 100 unit/mL subcutaneous pen 18 unit subcut DINNER diabetes 04/12/21 [History Last Taken Unknown] docusate sodium 50 mg capsule 50 mg PO DAILY PRN PRN Constipation 01/16/22 [History Last Taken Unknown] sucralfate 1 gram tablet 1 g PO TIDAC 30 days #90 tabs 01/19/22 [Rx Last Taken Unknown] calcium carbonate 600 mg calcium (1,500 mg) tablet (Calcium) 600 mg PO BID supplement 02/16/22 [History Last Taken Unknown] clopidogrel 75 mg tablet 75 mg DAILY blood clot 02/16/22 [History Last Taken Unknown] food supplemt, lactose-reduced 0.08 gram-1.5 kcal/mL oral liquid (Ensure Plus High Protein) 120 ml PO BID 30 days #3,600 mL 02/21/22 [Rx Last Taken Unknown] pantoprazole 40 mg tablet,delayed release 40 mg PO DAILY 90 days #90 tabs [Rx Last Taken Unknown] tramadol 50 mg tablet 50 mg PO Q6H PRN pain #14 tabs 02/24/22 [Rx Last Taken Unknown] hydrocodone-acetaminophen 5-325mg 5mg-325mg 1 tab PO Q6H PRN PRN Pain 3 days #10 TABLETS 03/14/22 [Rx Last Taken Unknown] Allergy/AdvReac Type Severity Reaction Status Date / Time duloxetine [From Cymbalta] AdvReac Rash Verified 03/14/22 14:39 linagliptin [From Tradjenta] AdvReac Hives Verified 03/14/22 14:39 oxycodone [From OxyContin] AdvReac Rash Verified 03/14/22 14:39 Family History (Updated 03/10/22 @ 14:19 by Christina White) Unknown No problems noted. Father Alcoholism Arthritis Diabetes Hypertension Kidney disease Sister Asthma Colon cancer possibly ovarian but unsure Daughter Depression Cancer daughter 1 - colon, cervical, melanoma daughter 2 - cervical Mother Diabetes Kidney disease Grandmother Diabetes maternal Surgical History H/O right hemicolectomy H/O tubal ligation History of back surgery History of carpal tunnel release History of cataract surgery History of knee replacement History of loop recorder (12/12/19) History of robot-assisted laparoscopic hysterectomy (10/02/19) History of salpingo-oophorectomy (10/02/19) Hx of appendectomy Hx of cholecystectomy Social History (Updated 03/10/22 @ 14:20 by Christina White) household members: none number of children: 5 pets and animals: Yes pets and animals: cat(s) Smoking Status: Never smoker second hand exposure: No alcohol intake: never substance use type: does not use ROS ROS ED Constitutional Constitutional ED: Denies chills or fever(s) Eyes Eyes: Denies change in vision or diplopia ENT ENT ED: Denies ear pain, epistaxis, facial pain or rhinorrhea Cardiovascular Cardiovascular: Reports other Details: right lateral and posterior ribcage only ; Denies chest pain or palpitations Respiratory/Chest Respiratory/Chest: Reports dyspnea; Denies cough Gastrointestinal Gastrointestinal: Reports abdominal pain; Denies diarrhea, melena, nausea or vomiting Genitourinary Genitourinary ED: Denies dysuria or hematuria Musculoskeletal Musculoskeletal: Reports back pain and extremity pain; Denies neck pain Integumentary Denies abscess, Abrasions, laceration or rash Neurologic Neurologic: Denies confusion, headache(s), paresthesias or weakness Hematologic/Lymphatic Hematologic/Lymphatic: Reports easy bleeding and easy bruising EXAM Physical Exam Const Vital Signs: 03/14/22 14:39 03/14/22 15:18 Temperature 98.0 F Temperature Source Temporal Pulse Rate 71 Respiratory Rate 18 Respiratory Effort Normal Non-Labored Respiratory Pattern Normal Blood Pressure 174/103 H Blood Pressure Mean 126 Pulse Ox 100 Oxygen Delivery Method Room Air Positive well nourished and well developed General Appearance ED: well developed and NAD HEENT Reports nasal mucous membranes and turbinates normal atraumatic Face and Sinus: Negative for facial tenderness Eyes PERRL and EOMs intact bilaterally Visual Acuity: other Other Details: no entrapment or pain with extraocular movements Neck full ROM and supple Neck Narrative: trachea midline General: Negative for tenderness Chest Wall inspection of chest normal and palpation of chest normal Chest Narrative: right lateral and posterior lower ribcage ecchymoses and tenderness; no flail, no SQ emphysema. no sternal or clavicular tenderness. Chest: symmetrical chest wall rise; Negative for crepitus or tenderness Resp normal respiratory effort and clear to auscultation bilaterally Resp Narrative: = BS bilaterally Percussion: other equal BS bilat Cardio no murmurs Rate: regular rate; Negative for tachycardic Rhythm: regular rhythm GI soft to palpation and non-distended GI Narrative: mild diffuse upper abd tenderness, no guarding or rebound Auscultation: normoactive bowel sounds Back/Spine Back/Spine Narrative: see ribs above Cervical Spine: Negative for cervical spine tenderness Thoracic Spine / Upper Back: ROM limited and pain with ROM; Negative for thorac ic spinal tenderness Lumbar Spine / Lower Back: Negative for lumbar spinal tenderness Extremity full ROM Extremity Narrative: Large purpuric contusions medial distal right upper arm, right thenar eminence, lateral right mid upper arm. No bony tenderness except for the right thumb MCPJ. All compartments soft and nondistended. General Extremety ED: Yes tenderness Neuro oriented x3, CN's II-XII intact bilaterally, moves all extremities, no focal motor deficits and no sensory deficits noted Yessi Coma Scale: document GCS findings Spontaneous Obeys Commands Oriented 15 Sensorium / Orientation: awake and alert Psych mental status grossly normal and thought process normal Skin no wounds Lesions: no lesions Rashes: no rashes MDM MDM MDM Narrative Medical decision making narrative: Given all of her symptoms I thought it was best to perform CT of her chest, abdomen, pelvis with IV contrast. As per radiology, she has sustained no rib fractures or any other organ damage. Right humerus 2 views and right hand 3 views in my interpretation all negative for any acute fractures radiology in agreement. We treated her pain here, and gave her some IV fluids. No sign of any infection or pulmonary contusion. I discussed with her and daughter options with regards to pain control. She is amenable to going home with a prescription for pain medications, and continuing to have help from her aids. I offered admission for placement she declines and states she will not need that she is able to get around. Lab Data Attestation: I reviewed the patient's lab results. Labs: Laboratory Results - last 24 hr 03/14/22 03/14/22 03/14/22 15:10 15:10 15:18 WBC 5.0 RBC 4.07 L Hgb 10.8 L Hct 35.1 L MCV 86.2 MCH 26.5 L MCHC 30.8 L RDW Std Deviation 50.4 H RDW Coeff of Kenneth 16.2 H Plt Count 107 L MPV 12.2 H Immature Gran % (Auto) 0.400 Neut % (Auto) 73.4 H Lymph % (Auto) 15.6 L [place] % (Auto) 6.6 Eos % (Auto) 3.6 Baso % (Auto) 0.4 Absolute Neuts (auto) 3.7 Absolute Lymphs (auto) 0.78 L Nucleated RBC % 0 Sodium 142 Potassium 3.7 Chloride 106 Carbon Dioxide 28.0 Anion Gap 8 BUN 17 Creatinine 1.25 H Estim Creat Clear Calc 29.34 Est GFR (MDRD) Af Amer 54 L Est GFR (MDRD) Non-Af 44 L BUN/Creatinine Ratio 13.6 Glucose 167 H Calcium 10.1 Total Bilirubin 0.80 AST 38 H ALT 32 Alkaline Phosphatase 122 H Total Protein 7.6 Albumin 3.7 Globulin 3.9 Albumin/Globulin Ratio 0.9 Urine Color Yellow Urine Clarity Clear Urine pH 6.0 Ur Specific [place] 1.015 Urine Protein Negative Urine Glucose (UA) Normal Urine Ketones 5 H Urine Occult Blood Negative Urine Nitrite Negative Urine Bilirubin Negative Urine Urobilinogen Normal Ur Leukocyte Esterase 500 H Urine RBC 0 SEEN Urine WBC 0-5 SEEN Ur Squamous Epith Cells 0-5 SEEN Urine Bacteria 0 SEEN Urine Mucus 0 SEEN Radiography Diagnostic Testing: Clinical Impression(s) from Imaging Studies Chest/Abdomen/Pelvis CT 03/14/22 14:53 IMPRESSION: 1. Focal wall thickening of the antrum of stomach. This can suggest a gastritis. 2. Evidence for recent right hemicolectomy changes. 3. No rib fracture visualized. Electronically Signed: Jcarlos Sims MD at 16:38 EST , Hand X-Ray 03/14/22 15:35 IMPRESSION: There are no acute findings. Electronically Signed: Jcarlos Sims MD at 16:33 EST , Humerus X-Ray 03/14/22 15:35 IMPRESSION: Negative right humerus x-rays. Electronically Signed: Jcarlos Sims MD at 16:32 EST , Discharge Plan Triage Chief Complaint: Chest Other ED Provider: Nadeem Marion Dx/Rx/DC Orders Clinical Impression: Contusion of rib on right side, Contusion of arm, right, multiple sites, Fall from slipping, Blunt injury of abdomen Instructions: ED Bruise, Rib Prescriptions: New hydrocodone-acetaminophen [hydrocodone-acetaminophen] 1 TABLET tablet 1 tab PO Q6H PRN PRN (Reason: Pain) 3 Days Qty: 10 0RF No Action allopurinol 100 mg tablet 1 tab PO DAILY lisinopril 10 mg tablet 5 mg PO BID sertraline 50 mg tablet 50 mg PO QHS cholecalciferol (vitamin D3) 1,000 UNIT tablet 5,000 unit PO DAILY ferrous sulfate 325 MG tablet 325 mg PO DAILY aspirin 81 MG tablet,chewable 81 mg PO DAILY Hold Instructions: Resume on 01/24/22. atorvastatin 40 MG tablet 40 mg PO QHS famotidine 40 MG tablet 40 mg PO BID pregabalin 300 mg capsule 300 mg PO BID insulin lispro 100 unit/mL insulin pen 16 unit SUBCUT LUNCH insulin lispro 100 unit/mL insulin pen 18 unit SUBCUT DINNER Levemir FlexTouch U-100 Insuln 100 unit/mL (3 mL) insulin pen 36 unit SUBCUT QHS insulin lispro 100 UNIT/ML insulin pen 16 unit subcut BREAKFAST docusate sodium 50 mg Capsule 50 mg PO DAILY PRN PRN (Reason: Constipation) sucralfate 1 gram Tablet 1 g PO TIDAC 30 Days Qty: 90 0RF clopidogrel 75 mg tablet 75 mg DAILY calcium carbonate [Calcium 600] 600 mg calcium (1,500 mg) Tablet 600 mg PO BID pantoprazole 40 mg Tablet,Delayed Release (Dr/Ec) 40 mg PO DAILY 90 Days Qty: 90 0RF Ensure Plus High Protein 0.08 gram-1.5 kcal/mL Liquid 120 ml PO BID 30 Days Qty: 3600 0RF tramadol 50 mg tablet 50 mg PO Q6H PRN (Reason: pain) Qty: 14 0RF Primary Care Provider: Марина Weir Referrals: Марина Weir MD [Primary Care Provider] - 5-7 Days Activity Restrictions/Additional Instructions: If you still take tramadol at home, do not take it with the new prescription; one or the other. Disposition Disposition: Home, Self Care
[2022-03-14] MEDS: Ondansetron 4 MG/2 ML Vial IV (15:05)
[2022-03-14] MEDS: Morphine 2 MG/ML Syringe IV (15:06)
[2022-03-14 15:20] LABS: Absolute Lymphocyte Count 0.78 X10^3/uL (0.83-4.51); Absolute Neutrophil Count 3.7 X10^3/uL (2.0-7.7); Basophil# 0.02 X10^3/uL; Basophil% 0.4 % (0-1); Eosinophil# 0.18 X10^3/uL; Eosinophils% 3.6 % (0-5); Hematocrit 35.1 % (37-47); Hemoglobin 10.8 g/dL (12.0-15.0); Lymphocyte # 0.78 X10^3/ul (0.83-4.51); Lymphocyte % 15.6 % (19-41); Mean Corp Hgb Conc 30.8 g/dL (32-36); Mean Corpuscular Hgb 26.5 pg (27.0-32.0); Mean Corpuscular Volume 86.2 fL (81-99); Mean Platelet Vol. 12.2 fl (6.2-12.0); Monocyte# 0.33 X10^3/uL; Monocyte% 6.6 % (0-10); NRBC Flagged by Analyzer 0 % (0-5); Neutrophil # 3.66 X10^3/uL (2.7-7.7); Neutrophil % 73.4 % (47-70); Platelet Count 107 K/mm3 (150-450); RBC Distribution Width CV 16.2 % (11.6-14.6); RBC Distribution Width SD 50.4 fl (35.1-43.9); Red Blood Count 4.07 M/mm3 (4.2-5.4)
[2022-03-14 15:24] LABS: Bacteria 0 SEEN /hpf (None Seen); Mucous, Urine 0 SEEN /hpf (<or=2+); Red Blood Cells-Urine 0 SEEN /hpf (0-5)
[2022-03-14 15:33] LABS: Color, Urine Yellow (Yellow); Glucose, Dipstick Normal (Normal); Ketone-Dipstick 5 mg/dl (Negative); Leukocyte Esterase-Dipstick 500 /ul (Negative); Nitrite-Dipstick Negative (Negative); Occult Blood-Urine Negative /ul (Negative); Protein-Dipstick Negative (Negative); Specific Gravity, Urine 1.015 (1.002-1.030); Urine Bilirubin Dipstick Negative (Negative); Urine Clarity Clear (Clear); Urine Urobilinogen Normal (Normal)
--- NOTE | 2022-03-14 15:35 | RAD_ITS ---
EXAM: XR RIGHT HUMERUS, 2 OR MORE VIEWS CLINICAL INDICATION: fall/injury TECHNIQUE: Frontal and lateral views of the right humerus. This report was created using [employer] report generation technology. COMPARISON: None. FINDINGS: BONES/JOINTS: Unremarkable. No acute fracture. No subluxation. Normal alignment. Preservation of the joint space. No sclerotic or destructive changes observed. SOFT TISSUES: Unremarkable. No soft tissue swelling or gas. No radiopaque foreign body. RAD/Humerus min 2 Views IMPRESSION: Negative right humerus x-rays. Electronically Signed: Jcarlos Sims MD at 16:32 EST Reading Location ID and State: [facility] / [place] , Service support ,
--- NOTE | 2022-03-14 15:35 | RAD_ITS ---
STUDY: XR Hand Min 3 Views REASON FOR EXAM: Female, 76 years old. fall/injury TECHNIQUE: XR Hand Min 3 Views RIGHT COMPARISON: None. FINDINGS: Normal radiocarpal articulation. Normal distal radioulnar joint. Normal visualized carpal bones. Normal carpal articulations Normal carpometacarpal articulation of the thumb. Normal second through fifth carpometacarpal joints. Normal metacarpi. Normal metacarpophalangeal joint of the thumb. Normal interphalangeal joint of the thumb. Normal proximal and distal phalanges of the thumb. Normal metacarpophalangeal joints of the second through fifth fingers. There is diffuse articular joint space narrowing of the proximal interphalangeal joints of the second through fifth fingers, but without erosive changes or periarticular soft tissue swelling. Normal phalanges of the second through fifth fingers. The soft tissue structures are unremarkable. RAD/Hand Min 3 Views IMPRESSION: There are no acute findings. Electronically Signed: Jcarlos Sims MD at 16:33 EST Reading Location ID and State: [facility] / [place] , Service support ,
[2022-03-14 15:39] LABS: ALB/GLOB Ratio 0.9 RATIO (0.9-2.4); AST(SGOT) 38 U/L (15-37); Alanine Aminotransfer ALT/SGPT 32 U/L (13-56); Albumin, Serum 3.7 g/dL (3.2-5.0); Alkaline Phosphatase 122 U/L (45-117); Anion Gap 8 (5-15); BUN 17 mg/dL (7-18); BUN/Creat Ratio 13.6 RATIO (10-20); Calcium,Total 10.1 mg/dL (8.5-10.1); Chloride 106 mmol/L (98-107); Creatinine, Serum 1.25 mg/dL (0.55-1.02); EST Glomerular Filtration Rate 44 mL/min (>60); Est Glom Filt Rate - Afr Amer 54 mL/min (>60); Estimated Creatinine Clearance 29.34 ml/min; Globulin 3.9 g/dL (2.2-4.2); Glucose 167 mg/dL (74-106); Potassium 3.7 mmol/L (3.5-5.1); Protein, Total 7.6 g/dL (6.4-8.2); Sodium Level 142 mmol/L (136-145)
[2022-03-14 15:42] LABS: Squamous Epithelial Cells - UA 0-5 SEEN /hpf (5-10); White Blood Cells 0-5 SEEN /hpf (0-5)
[2022-03-14 17:36] VITALS: BP 148/91; PULSE 74; RESP 16; O2SAT 97
== END 2022-03-14 17:38 | disposition home or self-care (01) ==
PROVIDERS: Emergency Provider Emergency Medicine; PCP Family Medicine; Visit Provider Emergency Medicine
DX: S20.211A Contusion of right front wall of thorax, initial encounter (principal); E11.22 Type 2 diabetes mellitus with diabetic chronic kidney disease; E11.40 Type 2 diabetes mellitus with diabetic neuropathy, unspecified; Z79.4 Long term (current) use of insulin; I12.9 Hypertensive chronic kidney disease with stage 1 through stage 4 chronic kidney disease, or unspecified chronic kidney disease; R19.00 Intra-abdominal and pelvic swelling, mass and lump, unspecified site; M79.601 Pain in right arm; E78.5 Hyperlipidemia, unspecified; R06.02 Shortness of breath; W18.2XXA Fall in (into) shower or empty bathtub, initial encounter; N18.9 Chronic kidney disease, unspecified; Y93.18 Activity, surfing, windsurfing and boogie boarding; Y92.89 Other specified places as the place of occurrence of the external cause; Z79.899 Other long term (current) drug therapy; Z79.82 Long term (current) use of aspirin; Z79.02 Long term (current) use of antithrombotics/antiplatelets
CPT/HCPCS: 71260; 73060; 73130; 74177; 80053; 81001; 85025; 96361; 96374; 96375; 99282; J7040; Q9967; A4216; J2405

== ENCOUNTER 2022-03-16 17:46 | Observation (INO) | payer MEDICARE, MEDICAID, SELFPAY ==
[2022-03-16 17:48] VITALS: BP 160/71; PULSE 77; RESP 18; TEMP 36.4; O2SAT 99; BMI 30.2
[2022-03-16 18:56] VITALS: BP 171/69; PULSE 73; RESP 18; O2SAT 97
--- NOTE | 2022-03-16 19:26 | EDS_ITS ---
HPI History of Present Illness Chief Complaint: Back Informant: patient and family Narrative Narrative: Patient had a fall 3 days ago, she was seen the day after that here in the ER, seen by myself. She had evaluation that showed no internal or bony/rib injury, she was offered admission but declined and went home with a prescription for [place] which she has been taking as needed, just not helping her pain enough, she cannot get out of bed without significant assistance due to the pain in her right flank. She notes no new symptoms, nor does she have any new pains. Same pain as before but worse now. She has changed her mind and here for placement along with family. Requesting [employer] if it is appropriate for her. [facility] Medical History Adnexal mass Amaurosis fugax of right eye Anemia Arthritis Back problem Carpal tunnel syndrome Cataracts, bilateral Chronic kidney disease Closed head injury (12/17/20) Colon cancer Concussion (12/17/20) Controlled type 2 diabetes mellitus with insulin therapy Essential (primary) hypertension GERD (gastroesophageal reflux disease) Goiter Gout History of CVA (cerebrovascular accident) (01/06/20) History of pulmonary embolus (PE) (12/2017) Hyperlipemia IBS (irritable bowel syndrome) Iron deficiency anemia due to chronic blood loss Neuropathy Osteoarthritis of right knee Osteoporosis PUD (peptic ulcer disease) Seasonal allergies 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) Stroke Syncope Thyroid goiter Thyroid nodule Home Medications cholecalciferol (vitamin D3) 25 mcg (1,000 unit) tablet 5,000 unit PO DAILY supplement 02/21/17 [History Last Taken 10/29/17] allopurinol 100 mg tablet 1 tab PO DAILY gout 08/15/17 [History Last Taken 10/29/17] ferrous sulfate 325 mg (65 mg iron) tablet 325 mg PO DAILY supplement 12/13/17 [History Last Taken Unknown] aspirin 81 mg chewable tablet 81 mg PO DAILY blood thinner 01/02/18 [History Last Taken Unknown] lisinopril 10 mg tablet 5 mg PO BID BP 06/16/20 [History Last Taken Unknown] sertraline 50 mg tablet 50 mg PO QHS depression 06/16/20 [History Last Taken Unknown] atorvastatin 40 mg tablet 40 mg PO QHS cholesterol 07/15/20 [History Last Taken Unknown] famotidine 40 mg tablet 40 mg PO BID reflux 07/15/20 [History Last Taken Unknown] pregabalin 300 mg capsule 300 mg PO BID nerve pain 03/02/21 [History Last Taken Unknown] insulin detemir U-100 100 unit/mL (3 mL) subcutaneous pen (Levemir FlexTouch U- 100 Insulin) 36 unit subcut QHS diabetes 04/12/21 [History Last Taken Unknown] insulin lispro 100 unit/mL subcutaneous pen 16 unit subcut BREAKFAST diabetes 04/12/21 [History Last Taken Unknown] insulin lispro 100 unit/mL subcutaneous pen 16 unit subcut LUNCH diabetes 04/12/21 [History Last Taken Unknown] insulin lispro 100 unit/mL subcutaneous pen 18 unit subcut DINNER diabetes 04/12/21 [History Last Taken Unknown] docusate sodium 50 mg capsule 50 mg PO DAILY PRN PRN Constipation 01/16/22 [History Last Taken Unknown] calcium carbonate 600 mg calcium (1,500 mg) tablet (Calcium) 600 mg PO BID supplement 02/16/22 [History Last Taken Unknown] clopidogrel 75 mg tablet 75 mg DAILY blood clot 02/16/22 [History Last Taken Unknown] food supplemt, lactose-reduced 0.08 gram-1.5 kcal/mL oral liquid (Ensure Plus High Protein) 120 ml PO BID 30 days #3,600 mL 02/21/22 [Rx Last Taken Unknown] pantoprazole 40 mg tablet,delayed release 40 mg PO DAILY 90 days #90 tabs 02/21/22 [Rx Last Taken Unknown] tramadol 50 mg tablet 50 mg PO Q6H PRN pain #14 tabs 02/24/22 [Rx Last Taken Unknown] hydrocodone-acetaminophen 5-325mg 5mg-325mg 1 tab PO Q6H PRN PRN Pain 3 days #10 TABLETS 03/14/22 [Rx Last Taken Unknown] Allergy/AdvReac Type Severity Reaction Status Date / Time duloxetine [From Cymbalta] AdvReac Rash Verified 03/16/22 17:50 linagliptin [From Tradjenta] AdvReac Hives Verified 03/16/22 17:50 oxycodone [From OxyContin] AdvReac Rash Verified 03/16/22 17:50 Family History (Updated 03/10/22 @ 14:19 by Christina White) Unknown No problems noted. Father Alcoholism Arthritis Diabetes Hypertension Kidney disease Sister Asthma Colon cancer possibly ovarian but unsure Daughter Depression Cancer daughter 1 - colon, cervical, melanoma daughter 2 - cervical Mother Diabetes Kidney disease Grandmother Diabetes maternal Surgical History H/O right hemicolectomy H/O tubal ligation History of back surgery History of carpal tunnel release History of cataract surgery History of knee replacement History of loop recorder (12/12/19) History of robot-assisted laparoscopic hysterectomy (10/02/19) History of salpingo-oophorectomy (10/02/19) Hx of appendectomy Hx of cholecystectomy Social History (Updated 03/16/22 @ 19:[address] Nadeem Marion MD) household members: none housing: other details: Lives at home alone with an aide 4 times per week number of children: 5 pets and animals: Yes pets and animals: cat(s) Smoking Status: Never smoker second hand exposure: No alcohol intake: never substance use type: does not use ROS ROS ED Constitutional Constitutional ED: Denies chills or fever(s) Eyes Eyes: Denies change in vision or diplopia ENT ENT ED: Denies rhinorrhea or sore throat Cardiovascular Cardiovascular: Denies chest pain or palpitations Respiratory/Chest Respiratory/Chest: Denies cough or dyspnea Gastrointestinal Gastrointestinal: Denies abdominal pain, diarrhea, nausea or vomiting Genitourinary Genitourinary ED: Reports as per HPI, flank pain and low back pain; Denies dysuria or hematuria Musculoskeletal Musculoskeletal: Reports as per HPI and back pain; Denies neck pain Integumentary Denies abscess or rash Neurologic Neurologic: Denies headache(s), paresthesias or weakness Psychiatric Psychiatric: Denies anxiety or suicidal thoughts EXAM Physical Exam Const Vital Signs: 03/16/22 17:48 03/16/22 18:56 Temperature 97.5 F L Temperature Source Temporal Pulse Rate 77 73 Respiratory Rate 18 18 Blood Pressure 160/71 H 171/69 H Blood Pressure Mean 100 103 Pulse Ox 99 97 Oxygen Delivery Method Room Air Room Air Positive well nourished and well developed General Appearance ED: well developed and NAD HEENT Reports moist mucous membranes normocephalic and atraumatic Eyes PERRL and EOMs intact bilaterally Neck full ROM and supple Resp normal respiratory effort and clear to auscultation bilaterally Cardio regular rate, regular rhythm and no murmurs GI non-tender and non-distended Auscultation: normoactive bowel sounds Palpation: soft Back/Spine no CVA tenderness Back/Spine Narrative: Aging ecchymoses which are very tender right flank/low back, similar to the other day except different color General Back: other Not able to range due to pain, including just trying to roll over in bed Extremity normal to inspection Extremity Narrative: Able to range all 4 extremities without any significant acute joint pain including lower extremities and hips. General Extremety ED: Negative for edema, pulses abnormal or tenderness General Extremity: Negative for edema or pulses abnormal Neuro oriented x3, CN's II-XII intact bilaterally and no sensory deficits noted Sensorium / Orientation: awake and alert Motor Exam: strength 5/5 throughout Skin no rashes or lesions noted and no wounds MDM MDM MDM Narrative Medical decision making narrative: We will repeat labs and treat her pain, but in the end patient will require admission for OT/PT and placement in short-term rehab. Discussed this with the patient and family and that is what they are wanting and needing. She does not have any signs or symptoms of new injury, she has not fallen again, I do not think she needs any other imaging studies since we performed a thorough imaging evaluation of her chest/abdomen/pelvis with CT 2 days ago. Lab Data Attestation: I reviewed the patient's lab results. Labs: Laboratory Results - last 24 hr 03/16/22 03/16/22 19:40 19:40 WBC 5.6 RBC 4.09 L Hgb 10.9 L Hct 36.3 L MCV 88.8 MCH 26.7 L MCHC 30.0 L RDW Std Deviation 53.3 H RDW Coeff of Kenneth 16.4 H Plt Count 105 L MPV 12.1 H Immature Gran % (Auto) 0.400 Neut % (Auto) 67.5 Lymph % (Auto) 19.2 Tyrrell % (Auto) 7.7 Eos % (Auto) 4.8 Baso % (Auto) 0.4 Absolute Neuts (auto) 3.8 Absolute Lymphs (auto) 1.08 Nucleated RBC % 0 Sodium 142 Potassium 3.8 Chloride 109 H Carbon Dioxide 28.0 Anion Gap 5 BUN 24 H Creatinine 1.38 H Estim Creat Clear Calc 26.58 Est GFR (MDRD) Af Amer 48 L Est GFR (MDRD) Non-Af 40 L BUN/Creatinine Ratio 17.4 Glucose 69 L Calcium 9.5 Discharge Plan Dx/Rx/DC Orders Clinical Impression: Intractable back pain, Debility Disposition Disposition: Acute Care [facility]
[2022-03-16] MEDS: Ondansetron 4 MG/2 ML Vial IV (19:45)
[2022-03-16] MEDS: Morphine 2 MG/ML Syringe IV (19:45)
[2022-03-16 19:47] LABS: Absolute Lymphocyte Count 1.08 X10^3/uL (0.83-4.51); Absolute Neutrophil Count 3.8 X10^3/uL (2.0-7.7); Basophil# 0.02 X10^3/uL; Basophil% 0.4 % (0-1); Eosinophil# 0.27 X10^3/uL; Eosinophils% 4.8 % (0-5); Hematocrit 36.3 % (37-47); Hemoglobin 10.9 g/dL (12.0-15.0); Lymphocyte # 1.08 X10^3/ul (0.83-4.51); Lymphocyte % 19.2 % (19-41); Mean Corpuscular Hgb 26.7 pg (27.0-32.0); Mean Corpuscular Volume 88.8 fL (81-99); Mean Platelet Vol. 12.1 fl (6.2-12.0); Monocyte# 0.43 X10^3/uL; Monocyte% 7.7 % (0-10); NRBC Flagged by Analyzer 0 % (0-5); Neutrophil % 67.5 % (47-70); Platelet Count 105 K/mm3 (150-450); RBC Distribution Width CV 16.4 % (11.6-14.6); RBC Distribution Width SD 53.3 fl (35.1-43.9); Red Blood Count 4.09 M/mm3 (4.2-5.4); White Blood Count 5.6 K/mm3 (4.4-11.0)
[2022-03-16 20:01] LABS: Anion Gap 5 (5-15); BUN 24 mg/dL (7-18); BUN/Creat Ratio 17.4 RATIO (10-20); Calcium,Total 9.5 mg/dL (8.5-10.1); Chloride 109 mmol/L (98-107); Creatinine, Serum 1.38 mg/dL (0.55-1.02); EST Glomerular Filtration Rate 40 mL/min (>60); Est Glom Filt Rate - Afr Amer 48 mL/min (>60); Estimated Creatinine Clearance 26.58 ml/min; Glucose 69 mg/dL (74-106); Potassium 3.8 mmol/L (3.5-5.1); Sodium Level 142 mmol/L (136-145)
--- NOTE | 2022-03-16 20:15 | PCM.HP.STD ---
HPI - General General Date of Admission: 03/16/22 Date of Service: 03/16/22 Chief Complaint: Fall, intractable back/flank discomfort. HPI Narrative The patient is a 76 y/o F w/ PMHx: Anxiety and Depression, Hx Colon CA s/p resection, Chronic thrombocytopenia, CKD stage III unclear subtype, Hx CVA, HTN, HLD, Hx VTE (DVT, PE), Chronic anemia/Fe deficiency anemia, Diabetes mellitus type II w/ neuropathy, GERD w/ Hx PUD, Gout, IBS who presents to the [facility] ED on 03/16/22 with history of mechanical fall on 03/14/2022 with no obvious injuries on imaging but ongoing R lower back pain/flank pain with pain regimen administration with unfortunately since then decline with inability to care for self at home with pain noted to be intractable prompting ED return for evaluation. Patient requesting skilled placement. She currently rates her back discomfort 8 out of 10 in severity with a constant dull aching, throbbing and intermittent sharp stabbing specifically with movement attempts or attempt to ambulate, worse with palpation of the right hip and right flank region. Work-up in the ED included T97.5, heart rate 77, BP 160/71, respiratory rate 18, 99% on room air, CBC with WC 5.6, hemoglobin 10.9, MCV 88.8, platelet 105 without marked shift, BMP with chloride 109, BUN/creat 24/1.38, glucose 69. Recent imaging performed on 03/14/2022 following fall with noted CT chest/abdomen/pelvis with focal wall thickening of the antrum of the stomach possibly associate with gastritis, evidence of prior recent right hemicolectomy changes with no evidence of fracture or injury, plain film of the right hand with no acute findings, plain film of the right humerus with no acute findings. In the ED patient ministered morphine 2 mg IV x1 as well as Zofran 4 mg IV x1. [facility] Medical History Adnexal mass Amaurosis fugax of right eye Anemia Arthritis Back problem Carpal tunnel syndrome Cataracts, bilateral Chronic kidney disease Closed head injury (12/17/20) Colon cancer Concussion (12/17/20) Controlled type 2 diabetes mellitus with insulin therapy Essential (primary) hypertension GERD (gastroesophageal reflux disease) Goiter Gout History of CVA (cerebrovascular accident) (01/06/20) History of pulmonary embolus (PE) (12/2017) Hyperlipemia IBS (irritable bowel syndrome) Iron deficiency anemia due to chronic blood loss Neuropathy Osteoarthritis of right knee Osteoporosis PUD (peptic ulcer disease) Seasonal allergies 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) Stroke Syncope Thyroid goiter Thyroid nodule Home Medications cholecalciferol (vitamin D3) 25 mcg (1,000 unit) tablet 1,000 unit PO DAILY supplement 02/21/17 [History Last Taken 03/16/22] allopurinol 100 mg tablet 1 tab PO DAILY gout 08/15/17 [History Last Taken 03/15/22] ferrous sulfate 325 mg (65 mg iron) tablet 325 mg PO DAILY supplement 12/13/17 [History Last Taken 03/16/22] lisinopril 10 mg tablet 10 mg PO DAILY blood pressure 06/16/20 [History Last Taken 03/16/22] sertraline 50 mg tablet 50 mg PO QHS depression 06/16/20 [History Last Taken 03/15/22] atorvastatin 40 mg tablet 40 mg PO QHS cholesterol 07/15/20 [History Last Taken 03/15/22] famotidine 40 mg tablet 40 mg PO BID acid reflux 07/15/20 [History Last Taken 03/16/22] pregabalin 300 mg capsule 300 mg PO BID nerve pain 03/02/21 [History Last Taken 03/16/22] insulin detemir U-100 100 unit/mL (3 mL) subcutaneous pen (Levemir FlexTouch U-100 Insulin) 40 unit subcut QHS diabetes 04/12/21 [History Last Taken 03/15/22] docusate sodium 50 mg capsule 50 mg PO DAILY CONSTIPATION 01/16/22 [History Last Taken 03/16/22] clopidogrel 75 mg tablet 75 mg DAILY BLOOD THINNER 02/16/22 [History Last Taken 03/16/22] tramadol 50 mg tablet 50 mg PO Q6H PRN pain #14 tabs 02/24/22 [Rx Last Taken 03/16/22] hydrocodone-acetaminophen 5-325mg 5mg-325mg 1 tab PO Q6H PRN PRN Pain 3 days #10 TABLETS 03/14/22 [Rx Last Taken Unknown] aspirin 81 mg tablet,delayed release 40.5 mg PO BID [email or web address] 03/16/22 [History Last Taken 03/16/22] food supplemt, lactose-reduced 0.08 gram-1.5 kcal/mL oral liquid (Ensure Plus High Protein) 120 ml PO BID SUPPLEMENT 03/16/22 [History Last Taken 03/16/22] insulin aspart (niacinamide)(U-100) 100 unit/mL(3 mL) subcutaneous pen (Fiasp FlexTouch U-100 Insulin) 16 unit subcut BID DIABETES 03/16/22 [History Last Taken 03/16/22] insulin aspart (niacinamide)(U-100) 100 unit/mL(3 mL) subcutaneous pen (Fiasp FlexTouch U-100 Insulin) 18 unit subcut DINNER DIABETES 03/16/22 [History Last Taken 03/15/22] pantoprazole 40 mg tablet,delayed release 40 mg PO DAILY ACID REFLUX 03/16/22 [History Last Taken 03/16/22] sucralfate 1 gram tablet 1 g PO TID 03/16/22 [History Last Taken 03/16/22] Allergy/AdvReac Type Severity Reaction Status Date / Time duloxetine [From Cymbalta] AdvReac Rash Verified 03/16/22 17:50 linagliptin [From Tradjenta] AdvReac Hives Verified 03/16/22 17:50 oxycodone [From OxyContin] AdvReac Rash Verified 03/16/22 17:50 Family History (Updated 03/10/22 @ 14:19 by Christina White) Unknown No problems noted. Father Alcoholism Arthritis Diabetes Hypertension Kidney disease Sister Asthma Colon cancer possibly ovarian but unsure Daughter Depression Cancer daughter 1 - colon, cervical, melanoma daughter 2 - cervical Mother Diabetes Kidney disease Grandmother Diabetes maternal Surgical History H/O right hemicolectomy H/O tubal ligation History of back surgery History of carpal tunnel release History of cataract surgery History of knee replacement History of loop recorder (12/12/19) History of robot-assisted laparoscopic hysterectomy (10/02/19) History of salpingo-oophorectomy (10/02/19) Hx of appendectomy Hx of cholecystectomy Social History (Updated 03/16/22 @ 19:[address] Nadeem Marion MD) household members: none housing: other details: Lives at home alone with an aide 4 times per week number of children: 5 pets and animals: Yes pets and animals: cat(s) Smoking Status: Never smoker second hand exposure: No alcohol intake: never substance use type: does not use ROS ROS Narrative Admission Review of Systems: CONSTITUTIONAL: No weight loss, fever, chills, + weakness or fatigue. HEENT: + Hx CVA w/ R eye vision deficits. Eyes: No double vision or yellow sclerae. Ears, Nose, Throat: No hearing loss, sneezing, congestion, runny nose or sore throat. SKIN: No rash or itching, lesions, wounds. CARDIOVASCULAR: No chest pain, chest pressure or chest discomfort, palpitations, edema, orthopnea, syncopal events. RESPIRATORY: No shortness of breath, cough or sputum, wheezing, hemoptysis. GASTROINTESTINAL: + anorexia, No nausea, vomiting or diarrhea, abdominal pain, melena, BRBPR. GENITOURINARY: No dysuria, frequency, urgency or retention. NEUROLOGICAL: No headache, dizziness, syncope, paralysis, ataxia, numbness or tingling in the extremities, focal weakness, change in bowel or bladder control, seizure. MUSCULOSKELETAL: + muscle, back pain, joint pain or stiffness. HEMATOLOGIC: + anemia, bleeding or bruising. LYMPHATICS: No enlarged nodes. No history of splenectomy. PSYCHIATRIC: + history of depression or anxiety. ENDOCRINOLOGIC: No reports of sweating, cold or heat intolerance. No polyuria or polydipsia. ALLERGIES:+ history of hives. Vital Signs Vital Signs Vital Signs: 03/16/22 17:48 03/16/22 18:56 Temperature 97.5 F L Temperature Source Temporal Pulse Rate 77 73 Respiratory Rate 18 18 Blood Pressure 160/71 H 171/69 H Blood Pressure Mean 100 103 Pulse Ox 99 97 Oxygen Delivery Method Room Air Room Air Weight Weight: 160 lb Body Mass Index (BMI) 30.2 Physical Exam Narrative Physical Examination: General: Awake, alert, oriented as noted, remains cooperative, laying in the ED bed, notes pain is improved but still uncomfortable. Skin: Normal color, normal turgor, no icterus, no cyanosis except for occasional staged ecchymoses. HEENT: AT/NC, EOMI, PERRLA, dry MM, no carotid bruits or JVD noted. Lungs: Mildly diminished, greater bases, appropriate effort, no rales, ronchi or wheezing. Heart: Regular rate and rhythm; no gallop, rub audible. Abdomen: Soft, obese, no obvious tenderness palpation however towards the right flank does become mildly tender as well as the paraspinous thoracic and lumbar region, otherwise abdomen itself NTTP, no obvious distention, distant normal BS, no HSM. Extremities: No cyanosis, clubbing, or edema. Neurological: Patient awake, alert, oriented as noted, cognitive function intact; pupils equally reactive to light and accommodation, cranial nerves grossly normal with history of prior CVA with right eye deficits, moving all 4 extremities however notably limited given right flank and lumbar back pain, worse with movement, strength accordingly moderately to severely globally decreased. Psychiatric: Affect appears uncomfortable, no acute evidence of depressive or anxiety feelings. Results Lab / Micro Data Result Diagrams: 03/16/22 19:40 03/16/22 19:40 Labs: Laboratory Results - last 24 hr 03/16/22 19:40: WBC 5.6, RBC 4.09 L, Hgb 10.9 L, Hct 36.3 L, MCV 88.8, MCH 26.7 L, MCHC 30.0 L, RDW Std Deviation 53.3 H, RDW Coeff of Kenneth 16.4 H, Plt Count 105 L, MPV 12.1 H, Immature Gran % (Auto) 0.400, Neut % (Auto) 67.5, Lymph % (Auto) 19.2, [place] % (Auto) 7.7, Eos % (Auto) 4.8, Baso % (Auto) 0.4, Absolute Neuts (auto) 3.8, Absolute Lymphs (auto) 1.08, Nucleated RBC % 0 03/16/22 19:40: Sodium 142, Potassium 3.8, Chloride 109 H, Carbon Dioxide 28.0, Anion Gap 5, BUN 24 H, Creatinine 1.38 H, Estim Creat Clear Calc 26.58, Est GFR (MDRD) Af Amer 48 L, Est GFR (MDRD) Non-Af 40 L, BUN/Creatinine Ratio 17.4, Glucose 69 L, Calcium 9.5 Assessment & Plan Assessment/Plan (1) Intractable back pain: PLAN: Plan The patient is a 76 y/o F w/ PMHx: Anxiety and Depression, Hx Colon CA s/p resection, Chronic thrombocytopenia, CKD stage III unclear subtype, Hx CVA, HTN, HLD, Hx VTE (DVT, PE), Chronic anemia/Fe deficiency anemia, Diabetes mellitus type II w/ neuropathy, GERD w/ Hx PUD, Gout, IBS who presents to the [facility] ED on 03/16/22 with history of mechanical fall on 03/14/2022 with no obvious injuries on imaging but notable pain with [place] administration with unfortunately since then decline with inability to care for self at home with pain noted to be intractable prompting ED return for evaluation. #1. Acute Intractable Back Pain status post recent mechanical fall: Recent imaging performed on 03/14/2022 following fall with noted CT chest/abdomen/pelvis with focal wall thickening of the antrum of the stomach possibly associate with gastritis, evidence of prior recent right hemicolectomy changes with no evidence of fracture or injury, plain film of the right hand with no acute findings, plain film of the right humerus with no acute findings. Will admit to [facility], maintain on fall precautions, frequent positioning, initiate lidoacine patches, low dose tizanidine, medrol dose pack, increase home pregabalin regimen temporarily, po/IV narcotic pain regimen, anti-emetics, bowel regimen. Will consult PT and OT for evaluation as well as Case management for discharge planning. #2. Diabetes mellitus type II with hypoglycemia with neuropathy: Given hypoglycemia will encourage oral intake, continue to closely monitor, temporarily hold scheduled short acting and will start patient's long-acting the evening next, if necessary can broaden from ADA diet, accu checks w/ ISS, continue patient home pregabalin regimen however will increase transiently as noted #1. #3. Chronic anemia/iron deficiency anemia: Admission hemoglobin 10.9, baseline appears similar 9-10, stable, continue iron supplementation and trending. #4. Chronic thrombocytopenia, unclear specific etiology: Admission platelets 105, baseline appears 90-1 50, stable, continue to trend. #5. Chronic Kidney Disease Stage III, unclear subtype: Admission BUN/Cr 24/1.38, baseline renal function primarily 1.1-1.2 repeat BMP in AM. #6. History CVA: We will continue patient home asa, Plavix, statin, hypertensive regimen, diabetic regimen with alterations as noted given hyperglycemia. #7. Colon cancer: Status post hemicolectomy, considered in remission. #8. Anxiety and depression: We will continue patient home sertraline regimen. #9. History of VTE: Prior history noted of PE, DVT, not currently chronically anticoagulated. #10. Obesity: Weight loss and lifestyle changes encouraged. #11. Hypertension: We will continue patient home lisinopril regimen, as needed IV hydralazine #12. Hyperlipidemia: We will continue patient on statin therapy #13. Gout: We will continue patient on allopurinol regimen. #14. GERD with history PUD: We will continue patient home PPI. #15. DVT prophylaxis: SCDs, heparin. #16. CODE status: Patient HCPOA is not in place but she notes that her daughter would be her decision-maker, living will is in place. Discussed CODE status at length including difference between FULL code, DNR-CCA and DNR-CC status. Following discussions about the differences in these status, requested DNR-CCA, no intubation status. Advanced Care Planning Face to Face Time: 16 minutes. Charges/Coding Visit Charges OBSV E&M: 54377 Initial observation care L3 Procedures Hospitalists Procedures: 72008 Advncd Care Plan 30 Min
[2022-03-16 21:39] VITALS: BP 130/71; PULSE 75; RESP 16; TEMP 36.4; O2SAT 93
[2022-03-16 22:50] VITALS: BP 166/47; PULSE 71; RESP 16; TEMP 37.1; O2SAT 95
[2022-03-16 23:01] VITALS: BMI 32.1
[2022-03-16] MEDS: Heparin Injection (Vial) 5,000 UNIT/ML VIAL 5000 UNIT SC (23:29)
[2022-03-16] MEDS: Atorvastatin Calcium 40 MG Tablet PO (23:33)
[2022-03-16] MEDS: Famotidine 20 MG Tablet 40 MG PO (23:35)
[2022-03-16] MEDS: Lisinopril 5 MG Tablet PO (23:36)
[2022-03-16] MEDS: tiZANidine HCl 2 MG Tablet PO (23:36)
[2022-03-16] MEDS: MethylPREDNISolone DosePak 4 MG BOX PO (23:38)
[2022-03-16] MEDS: Sertraline 50 MG Tablet PO (23:38)
[2022-03-16] MEDS: Pregabalin 75 MG Capsule 300 MG PO (23:51)
[2022-03-17 01:19] VITALS: O2SAT 99
[2022-03-17 01:41] LABS: Bedside Glucose 166 mg/dL (74-106)
[2022-03-17 04:26] VITALS: BP 123/58; PULSE 73; RESP 16; TEMP 37.2; O2SAT 93
[2022-03-17 05:25] LABS: Absolute Lymphocyte Count 0.51 X10^3/uL (0.83-4.51); Absolute Neutrophil Count 3.3 X10^3/uL (2.0-7.7); Basophil# 0.01 X10^3/uL; Basophil% 0.3 % (0-1); Eosinophil# 0.02 X10^3/uL; Eosinophils% 0.5 % (0-5); Hematocrit 31.9 % (37-47); Hemoglobin 9.7 g/dL (12.0-15.0); Lymphocyte # 0.51 X10^3/ul (0.83-4.51); Lymphocyte % 13.2 % (19-41); Mean Corp Hgb Conc 30.4 g/dL (32-36); Mean Corpuscular Hgb 27.2 pg (27.0-32.0); Mean Corpuscular Volume 89.4 fL (81-99); Mean Platelet Vol. 12.7 fl (6.2-12.0); Monocyte# 0.07 X10^3/uL; Monocyte% 1.8 % (0-10); NRBC Flagged by Analyzer 0 % (0-5); Neutrophil # 3.25 X10^3/uL (2.7-7.7); Neutrophil % 83.9 % (47-70); POSITIVE COUNT YES; POSITIVE DIFFERENTIAL YES; Platelet Count 84 K/mm3 (150-450); RBC Distribution Width CV 16.1 % (11.6-14.6); RBC Distribution Width SD 53.1 fl (35.1-43.9); Red Blood Count 3.57 M/mm3 (4.2-5.4); White Blood Count 3.9 K/mm3 (4.4-11.0)
[2022-03-17 05:51] LABS: ALB/GLOB Ratio 0.8 RATIO (0.9-2.4); AST(SGOT) 22 U/L (15-37); Alanine Aminotransfer ALT/SGPT 23 U/L (13-56); Alkaline Phosphatase 107 U/L (45-117); Anion Gap 6 (5-15); BUN 26 mg/dL (7-18); Calcium,Total 8.6 mg/dL (8.5-10.1); Chloride 105 mmol/L (98-107); Creatinine, Serum 1.63 mg/dL (0.55-1.02); EST Glomerular Filtration Rate 33 mL/min (>60); Est Glom Filt Rate - Afr Amer 40 mL/min (>60); Globulin 3.6 g/dL (2.2-4.2); Glucose 305 mg/dL (74-106); Potassium 4.5 mmol/L (3.5-5.1); Protein, Total 6.6 g/dL (6.4-8.2); Sodium Level 137 mmol/L (136-145)
[2022-03-17 06:01] LABS: Differential Indicated SCAN CRITERIA MET
[2022-03-17 06:20] LABS: Differential Comment SCANNED; Platelet Estimate SLT DEC (ADEQ)
[2022-03-17] MEDS: Insulin Lispro 100 UNIT/ML INSULN.PEN SC ×4 (06:53→22:03)
[2022-03-17 07:20] LABS: Bedside Glucose 345 mg/dL (74-106)
[2022-03-17 07:40] VITALS: O2SAT 97
[2022-03-17 10:00] VITALS: BP 149/59; PULSE 75; RESP 16; TEMP 36.6; O2SAT 98
--- NOTE | 2022-03-17 10:34 | CASEMGMT ---
SW met with patient. Introduced self and role at [facility]. Patient confirmed she was interested in going to a SNF. SW provided patient with a list of shelter facility providers including quality and resource use data and consistent with patient?s preferred geographic region, medical needs, and insurance network were provided from the [employer] Guide. Patient asked if [facility] is in network. SW told her they are not on the list, but SW will double check and call [facility] to find out. Patient said she has a family member that works there and a friend that is there. SW told her SW will let her know. SW asked Meena d/c surgeon's assistant to look into this. Cheri Holt MSW HONG
[2022-03-17] MEDS: Aspirin 81 MG TAB.CHEW PO (10:47)
[2022-03-17] MEDS: Clopidogrel Bisulfate 75 MG Tablet PO (10:48)
[2022-03-17] MEDS: Pantoprazole Sodium 40 MG Tablet PO (10:48)
[2022-03-17] MEDS: Famotidine 20 MG Tablet 40 MG PO ×2 (10:48→22:04)
[2022-03-17] MEDS: Lisinopril 5 MG Tablet PO ×2 (10:48→22:05)
[2022-03-17] MEDS: Lidocaine 5% Patch 2 PATCH TOPICAL (10:48)
[2022-03-17] MEDS: Ferrous Sulfate 325 MG Tablet PO (10:49)
[2022-03-17] MEDS: Allopurinol 100 MG Tablet PO (10:49)
[2022-03-17] MEDS: Heparin Injection (Vial) 5,000 UNIT/ML VIAL 5000 UNIT SC ×2 (10:53→22:05)
[2022-03-17] MEDS: Pregabalin 75 MG Capsule 300 MG PO ×2 (10:53→22:05)
--- NOTE | 2022-03-17 11:55 | CASEMGMT ---
Discharge Auto Claim Representative Sent referral to [facility]. Admissions is going to review referral and insurance. Geraldine REYES Embroidery Cutter
[2022-03-17] MEDS: MethylPREDNISolone DosePak 4 MG BOX PO ×2 (11:56→16:48)
--- NOTE | 2022-03-17 12:22 | CASEMGMT ---
SW went back to patient's room to let her know SW is communication with [facility] and they are checking to see if they are in network. Patient does not have a copy of her card with her. SW received a voice mail from patient's daughter Kelly asking that SW do Healthcare Power of [place] papers with patient naming her as patient's Healthcare Power of [place]. SW will check with patient to see what she would like to do. Plan: SNF pending accepting facility and patient choice if [facility] does not take patient's insurance. Cheri Holt BRANCH SALES AND SERVICE REPRESENTATIVE HONG
[2022-03-17 12:25] LABS: Bedside Glucose 412 mg/dL (74-106)
--- NOTE | 2022-03-17 13:01 | CHAPLAIN ---
Type of Pastoral Visit _x__ Initial Visit ___ Follow-up Visit ___ On-call Visit ___ General Patient Visit ___ Spiritual Assessment ___ Family Conference ___ Bereavement ___ Rapid Response ___ Code Blue ___ Other (describe below) Pastoral Care Referral From _x__ Patient ___ Family ___ Nurse ___ Physician ___ Sales Commissions Analyst ___ Long Term Care Pharmacist ___ Other (describe below) Sacrament/Intervention _x__ Active listening ___ Anointing ___ Moravian ___ Bereavement ___ Communion _x__ Stacy exploration ___ ___ Life review _x__ Prayer ___ Reconciliation ___ Sacrament of Sick _x__ Supportive presence ___ Wedding ___ Other (describe below) Pastoral Comments patient remembers this investment specialist from another recent visit to hospital; pt reports I think I am doing pretty good; pt speaks of decisions for rehab are forthcoming and of her daughters in disagreement; pt asks for prayer support; pt speaks of being 'away from voodoo, but I watch on TV, but maybe I'll get to that more now;
--- NOTE | 2022-03-17 13:35 | PN.HOSP_ITS ---
Subjective Subjective Doing well, no issues overnight. She has continued to have some back pain, imaging was negative for fracture Objective Data Objective Data Vital Signs: Vital Signs Temp Pulse Resp BP Pulse Ox O2 Del Method 97.9 F 75 16 149/59 H 98 Room Air 03/17/22 10:00 03/17/22 10:00 03/17/22 10:00 03/17/22 10:00 03/17/22 10:00 03/17/22 10:00 Oxygen Delivery Method Room Air Weight: 169 lb 15.622 oz Body Mass Index (BMI) 32.1 Lab / Micro Data Result Diagrams: 03/17/22 04:49 03/17/22 04:49 Labs: Laboratory Results - last 24 hr 03/16/22 19:40: WBC 5.6, RBC 4.09 L, Hgb 10.9 L, Hct 36.3 L, MCV 88.8, MCH 26.7 L, MCHC 30.0 L, RDW Std Deviation 53.3 H, RDW Coeff of Kenneth 16.4 H, Plt Count 105 L, MPV 12.1 H, Immature Gran % (Auto) 0.400, Neut % (Auto) 67.5, Lymph % (Auto) 19.2, [place] % (Auto) 7.7, Eos % (Auto) 4.8, Baso % (Auto) 0.4, Absolute Neuts (auto) 3.8, Absolute Lymphs (auto) 1.08, Nucleated RBC % 0 03/16/22 19:40: Sodium 142, Potassium 3.8, Chloride 109 H, Carbon Dioxide 28.0, Anion Gap 5, BUN 24 H, Creatinine 1.38 H, Estim Creat Clear Calc 26.58, Est GFR (MDRD) Af Amer 48 L, Est GFR (MDRD) Non-Af 40 L, BUN/Creatinine Ratio 17.4, Glucose 69 L, Calcium 9.5 03/16/22 23:32: POC Glucose 166 H 03/17/22 04:49: WBC 3.9 L, RBC 3.57 L, Hgb 9.7 L, Hct 31.9 L, MCV 89.4, MCH 27. 2, MCHC 30.4 L, RDW Std Deviation 53.1 H, RDW Coeff of Kenneth 16.1 H, Plt Count 84 L, MPV 12.7 H, Immature Gran % (Auto) 0.300, Neut % (Auto) 83.9 H, Lymph % (Auto) 13.2 L, [place] % (Auto) 1.8, Eos % (Auto) 0.5, Baso % (Auto) 0.3, Absolute Neuts (auto) 3.3, Absolute Lymphs (auto) 0.51 L, Nucleated RBC % 0, Differential Comment SCANNED, Diff Path Review September foll, Platelet Estimate SLT 03/17/22 04:49: Sodium 137, Potassium 4.5, Chloride 105, Carbon Dioxide 26.0, Anion Gap 6, BUN 26 H, Creatinine 1.63 H, Estim Creat Clear Calc 22.50, Est GFR (MDRD) Af Amer 40 L, Est GFR (MDRD) Non-Af 33 L, BUN/Creatinine Ratio 16.0, Glucose 305 H, Calcium 8.6, Total Bilirubin 0.70, AST 22, ALT 23, Alkaline Phosphatase 107, Total Protein 6.6, Albumin 3.0 L, Globulin 3.6, Albumin/Globulin Ratio 0.8 L 03/17/22 06:49: POC Glucose 345 H 03/17/22 11:54: POC Glucose 412 H Physical Exam Narrative General: Alert, Oriented x3, Cooperative, No apparent distress, some back pain HEENT: Atraumatic, PERRLA, EOMI, Normocephalic Oral: Moist Mucosa Neck: Supple, No JVD Lungs: Diminished, Normal air movement, No rhonchi, No wheeze, No rales Cardiovascular: Regular rate, Regular Rhythm, Normal S1, Normal S2, No murmurs Abdomen: Soft, Non Tender, Non-Distended, No Hepato-splenomegaly Extremities: No edema, Capillary Refill Less than 3 Seconds Skin: No rashes, No breakdown Musculoskeletal: Paraspinal muscle tenderness on the right, no radiation of the pain Neurological: Cranial nerves II-XII grossly intact, Motor Exam 5/5 strength throughout some limitation due to pain, Sensory exam intact to light touch and pain Psych/Mental Status: Normal Affect, Appropriate Assessment & Plan Assessment/Plan (1) Intractable back pain: PLAN: Plan 1. Intractable right back pain secondary to mechanical fall ? She had imaging done after the fall that was negative for fracture and most of her tenderness is paraspinal ? Inability to complete ADLs ? PT/OT evaluation for possible placement ? Continue with steroids 2. HTN/HLD/obesity/history of CVA ? Blood pressure is stable, continue with her home pressure medications ? Continue with Lipitor and aspirin as well as Plavix ? BMI of 32.1, discussed lifestyle modifications 3. DM2 with neuropathy ? We will hold her home medications ? Placed on a sliding scale insulin ? Accu-Cheks AC at bedtime ? We will make adjustments as necessary ? Continue with Lyrica 4. Chronic iron deficiency anemia/chronic thrombocytopenia ? Stable we will continue to monitor 5. CKD 3B ? Creatinine is rising we will continue to monitor it still not within the CHELI range, however we will give her 1 L of fluids 6. History of colon cancer ? Status post hemicolectomy ? Considered in remission 7. Anxiety/depression ? Stable ? Continue with Zoloft 8. Gout ? Stable ? Continue with allopurinol 9. GERD ? Stable ? Continue with PPI DVT: Heparin Charges/Coding Visit Charges OBSV E&M: 84251 Subsequent observation care L2
--- NOTE | 2022-03-17 14:47 | CASEMGMT ---
[facility] stated they are not in network with patient's insurance. Patient would have to pay 50% of her stay and they would like money up front. SW went to patient's room and let her know this information. Patient asked if she could go home with home health. MARVA suggested we wait until therapy sees her. Cheri PITTS
[2022-03-17] MEDS: 0.9% Normal Saline 1,000 ML 75 ML IV (14:51)
--- NOTE | 2022-03-17 14:52 | CASEMGMT ---
SW spoke with therapy and it was felt patient could do either SNF or home with home health. SW met with patient and she would like to go home with home health. MARVA asked patient if her children were going to be okay with her going home. Patient said some of them would be okay. SW asked patient if she would like SW to call one of her family members. Patient said SW can call her daughter Maren. MARVA obtained Maren's phone number from patient. SW asked patient if she remembers the home health agency she had before. Patient said she had [facility]. Patient is okay with having them again. SW offered patient a list of home health agencies and patient declined stating she is fine with [facility]. MARVA called patient's daughter Maren. There was no answer so MARVA left a voice mail requesting a return call. MARVA will work on referral to [facility]. MARVA spoke with Meena d/c sales planning manager and she will work on making a referral. Cheri PITTS
--- NOTE | 2022-03-17 15:07 | CASEMGMT ---
Discharge Chief Of Anesthesiology This ad writer sent a referral to [facility] via Care Shagufta Chandler DC Assistance Coordinator
[2022-03-17 15:43] LABS: Pathologist Review Reviewed
--- NOTE | 2022-03-17 15:43 | CASEMGMT ---
Discharge Nascar Driver [facility] can accept patient. ANSLEY Chandler DC Clinical Rehabilitation Coordinator
--- NOTE | 2022-03-17 15:52 | CASEMGMT ---
Discharge Powerhouse Mechanic [facility] can accept patient. If patient is discharged over weekend [facility] can't see patient till next weekend as they do not have staffing for weekend. MARVA Alonzo notified. Geraldine REYES Splicer Operator
--- NOTE | 2022-03-17 16:15 | CASEMGMT ---
ANSLEY CM in to complete SMITH Form with patient. RN DALE explained SMITH form to patient, patient voiced understanding. Patient signed SMITH form and filed in chart. Patient provided with copy of signed SMITH Form. Patient had no further questions or concerns at this time.
[2022-03-17] MEDS: Docusate Sodium 100 MG Capsule PO (16:52)
[2022-03-17 17:46] LABS: Bedside Glucose 346 mg/dL (74-106)
[2022-03-17 19:55] VITALS: BP 154/55; PULSE 68; RESP 18; TEMP 36.4; O2SAT 95
[2022-03-17] MEDS: Insulin Glargine-YFGN 100 UNIT/ML Pen 45 UNIT SC (22:03)
[2022-03-17] MEDS: Sertraline 50 MG Tablet PO (22:04)
[2022-03-17] MEDS: Atorvastatin Calcium 40 MG Tablet PO (22:05)
[2022-03-17 23:16] LABS: Bedside Glucose 340 mg/dL (74-106)
[2022-03-18] VITALS (7 sets, daily range): BP systolic 148–161; BP diastolic 55–74; PULSE 64–67; RESP 16–18; TEMP 36.1–36.4; O2SAT 96–100
[2022-03-18 06:20] LABS: Absolute Lymphocyte Count 0.68 X10^3/uL (0.83-4.51); Absolute Neutrophil Count 3.2 X10^3/uL (2.0-7.7); Hematocrit 29.1 % (37-47); Hemoglobin 8.9 g/dL (12.0-15.0); Lymphocyte # 0.68 X10^3/ul (0.83-4.51); Mean Corp Hgb Conc 30.6 g/dL (32-36); Mean Corpuscular Hgb 26.7 pg (27.0-32.0); Mean Corpuscular Volume 87.4 fL (81-99); Monocyte# 0.34 X10^3/uL; NRBC Flagged by Analyzer 0 % (0-5); Neutrophil # 3.21 X10^3/uL (2.7-7.7); Neutrophil % 75.5 % (47-70); POSITIVE COUNT YES; Platelet Count 91 K/mm3 (150-450); RBC Distribution Width CV 15.7 % (11.6-14.6); RBC Distribution Width SD 50.1 fl (35.1-43.9); Red Blood Count 3.33 M/mm3 (4.2-5.4); White Blood Count 4.3 K/mm3 (4.4-11.0)
[2022-03-18] MEDS: Insulin Lispro 100 UNIT/ML INSULN.PEN SC ×2 (06:38→11:33)
[2022-03-18 06:54] LABS: Anion Gap 7 (5-15); BUN 33 mg/dL (7-18); BUN/Creat Ratio 25.8 RATIO (10-20); Calcium,Total 8.6 mg/dL (8.5-10.1); Chloride 105 mmol/L (98-107); Creatinine, Serum 1.28 mg/dL (0.55-1.02); EST Glomerular Filtration Rate 43 mL/min (>60); Est Glom Filt Rate - Afr Amer 52 mL/min (>60); Estimated Creatinine Clearance 28.66 ml/min; Glucose 287 mg/dL (74-106); Potassium 4.4 mmol/L (3.5-5.1); Sodium Level 138 mmol/L (136-145)
[2022-03-18 07:00] LABS: Bedside Glucose 264 mg/dL (74-106)
[2022-03-18] MEDS: Allopurinol 100 MG Tablet PO (09:03)
[2022-03-18] MEDS: Clopidogrel Bisulfate 75 MG Tablet PO (09:03)
[2022-03-18] MEDS: Ferrous Sulfate 325 MG Tablet PO (09:03)
[2022-03-18] MEDS: Famotidine 20 MG Tablet 40 MG PO (09:03)
[2022-03-18] MEDS: Pantoprazole Sodium 40 MG Tablet PO (09:03)
[2022-03-18] MEDS: Lidocaine 5% Patch 2 PATCH TOPICAL (09:03)
[2022-03-18] MEDS: Lisinopril 5 MG Tablet PO (09:03)
[2022-03-18] MEDS: Aspirin 81 MG TAB.CHEW PO (09:03)
[2022-03-18] MEDS: Heparin Injection (Vial) 5,000 UNIT/ML VIAL 5000 UNIT SC (09:04)
[2022-03-18] MEDS: Pregabalin 75 MG Capsule 300 MG PO (09:07)
--- NOTE | 2022-03-18 09:10 | CASEMGMT ---
MARVA received a call from patient's daughter Kelly. Kelly said that her sister Maren lives with patient. However, Maren has her own health issues and is not fit to help patient. Kelly said that her brother and his are power of disability attorney over patient. Kelly asked what was going on with patient. MARVA let Kelly know that patient wanted [facility], but they are not in network with patient's insurance. SW explained that patient would have to pay 50% of her stay and they wanted money up front. Patient was not interested in this. Patient did not have a second choice and asked if she could go home. SW had told patient we will see what therapy says. Therapy then saw patient and they said patient could go home or SNF. Patient said she has had [facility] before so she would like them. [facility] accepted patient. SW asked if patient has Passport services and she said patient does. Patient's casework supervisor is Gina. Patient has aides and Kelly thought it was through [place]. Kelly said patient needs to go to a detention. All of the children agree on this. MARVA explained that patient is alert and oriented so she makes decisions for herself. SW explained that the physician nor SW can make patient do anything she does not want to do. SW told Kelly patient is able to make her own decisions regardless of whether they are good or bad decisions. SW asked if patient has Passport services and she said patient does. Kelly then hung up on SW. SW spoke with patient and she does not want to go to a detention. SW let patient know SW spoke with her daughter Kelly and Kelly hung up on SW. Plan: Home with [facility], PT, and OT. Cheri PITTS
[2022-03-18] MEDS: MethylPREDNISolone DosePak 4 MG BOX PO (11:33)
[2022-03-18 11:56] LABS: Bedside Glucose 191 mg/dL (74-106)
--- NOTE | 2022-03-18 13:04 | DCINST_ITS ---
Discharge Instructions Diet Discharge Diet: Carb Control Diet Activity Discharge Activity: Return to Normal Activity Dressing / Incision Call your doctor if you observe: Fever of 101 or Higher, Shortness of breath, Dizziness, Fainting spells, Swelling in the ankles, Chest pain and Increased palpitations (irregular heartbeat) Follow Up Care Test Results: Test results from this visit will be discussed in further detail at your follow- up appointment, if applicable. Discharge Plan Admission Admit Date/Time: 03/16/22 20:40 Attending Provider: Sabino Nieves Primary Care Provider: Марина Weir Consulting Providers: Cat Covington Discharge Orders/Prescriptions Prescriptions: Continued allopurinol 100 mg tablet 1 tab PO DAILY lisinopril 10 mg tablet 10 mg PO DAILY sertraline 50 mg tablet 50 mg PO QHS cholecalciferol (vitamin D3) 1,000 UNIT tablet 1,000 unit PO DAILY ferrous sulfate 325 MG tablet 325 mg PO DAILY atorvastatin 40 MG tablet 40 mg PO QHS famotidine 40 MG tablet 40 mg PO BID pregabalin 300 mg capsule 300 mg PO BID Levemir FlexTouch U-100 Insuln 100 unit/mL (3 mL) insulin pen 40 unit SUBCUT QHS docusate sodium 50 mg Capsule 50 mg PO DAILY clopidogrel 75 mg tablet 75 mg DAILY hydrocodone-acetaminophen 1 TABLET tablet 1 tab PO Q6H PRN PRN (Reason: Pain) 3 Days Qty: 10 0RF sucralfate 1 gram tablet 1 g PO TID Label Comments: TAKE 1 TABLET BY MOUTH THREE TIMES DAILY BEFORE MEAL(S) aspirin 81 mg Tablet,Delayed Release (Dr/Ec) 40.5 mg PO BID Fiasp FlexTouch U-100 Insulin 100 unit/mL (3 mL) insulin pen 16 unit SUBCUT BID Fiasp FlexTouch U-100 Insulin 100 unit/mL (3 mL) insulin pen 18 unit SUBCUT DINNER pantoprazole 40 mg tablet,delayed release (DR/EC) 40 mg PO DAILY Ensure Plus High Protein 0.08 gram-1.5 kcal/mL liquid 120 ml PO BID tramadol 50 mg tablet 50 mg PO Q6H PRN (Reason: pain) Qty: 14 0RF Referrals / Follow Up: Марина Weir MD [Primary Care Provider] - Within 1 Week Disposition Disposition (needs filled in before D/C Order can be placed): Home Health Service
--- NOTE | 2022-03-18 13:13 | PCM.DC.SUM ---
Providers Date of Admission: 03/16/22 Primary Care Physician: Dr. Марина Weir MD Reason For Visit: FALL, INTRACTABLE BACK PAIN Diagnosis Discharge Diagnosis (1) Intractable back pain: Status: Acute Code(s): M54.9 - Dorsalgia, unspecified Plan 1. Intractable right back pain secondary to mechanical fall ? She had imaging done after the fall that was negative for fracture and most of her tenderness is paraspinal ? Inability to complete ADLs ? PT/OT evaluation for possible placement ? Continue with steroids 2. HTN/HLD/obesity/history of CVA ? Blood pressure is stable, continue with her home pressure medications ? Continue with Lipitor and aspirin as well as Plavix ? BMI of 32.1, discussed lifestyle modifications 3. DM2 with neuropathy ? We will hold her home medications ? Placed on a sliding scale insulin ? Accu-Cheks AC at bedtime ? We will make adjustments as necessary ? Continue with Lyrica 4. Chronic iron deficiency anemia/chronic thrombocytopenia ? Stable we will continue to monitor 5. CKD 3B ? Creatinine is rising we will continue to monitor it still not within the CHELI range, however we will give her 1 L of fluids 6. History of colon cancer ? Status post hemicolectomy ? Considered in remission 7. Anxiety/depression ? Stable ? Continue with Zoloft 8. Gout ? Stable ? Continue with allopurinol 9. GERD ? Stable ? Continue with PPI DVT: Heparin Medications at Discharge Home Medications cholecalciferol (vitamin D3) 25 mcg (1,000 unit) tablet 1,000 unit PO DAILY supplement 02/21/17 allopurinol 100 mg tablet 1 tab PO DAILY gout 08/15/17 ferrous sulfate 325 mg (65 mg iron) tablet 325 mg PO DAILY supplement 12/13/17 lisinopril 10 mg tablet 10 mg PO DAILY blood pressure 06/16/20 sertraline 50 mg tablet 50 mg PO QHS depression 06/16/20 atorvastatin 40 mg tablet 40 mg PO QHS cholesterol 07/15/20 famotidine 40 mg tablet 40 mg PO BID acid reflux 07/15/20 pregabalin 300 mg capsule 300 mg PO BID nerve pain 03/02/21 insulin detemir U-100 100 unit/mL (3 mL) subcutaneous pen (Levemir FlexTouch U-100 Insulin) 40 unit subcut QHS diabetes 04/12/21 docusate sodium 50 mg capsule 50 mg PO DAILY CONSTIPATION 01/16/22 clopidogrel 75 mg tablet 75 mg DAILY BLOOD THINNER 02/16/22 tramadol 50 mg tablet 50 mg PO Q6H PRN pain #14 tabs 02/24/22 hydrocodone-acetaminophen 5-325mg 5mg-325mg 1 tab PO Q6H PRN PRN Pain 3 days #10 TABLETS 03/14/22 aspirin 81 mg tablet,delayed release 40.5 mg PO BID heart health 03/16/22 food supplemt, lactose-reduced 0.08 gram-1.5 kcal/mL oral liquid (Ensure Plus High Protein) 120 ml PO BID SUPPLEMENT 03/16/22 insulin aspart (niacinamide)(U-100) 100 unit/mL(3 mL) subcutaneous pen (Fiasp FlexTouch U-100 Insulin) 16 unit subcut BID DIABETES 03/16/22 insulin aspart (niacinamide)(U-100) 100 unit/mL(3 mL) subcutaneous pen (Fiasp FlexTouch U-100 Insulin) 18 unit subcut DINNER DIABETES 03/16/22 pantoprazole 40 mg tablet,delayed release 40 mg PO DAILY ACID REFLUX 03/16/22 sucralfate 1 gram tablet 1 g PO TID 03/16/22 Hospital Course Operations None Procedures None Summary of Care Provided Minutes Spent on Discharge: 41 Hospital Course: Per HPI: The patient is a 76 y/o F w/ PMHx: Anxiety and Depression, Hx Colon CA s/p resection, Chronic thrombocytopenia, CKD stage III unclear subtype, Hx CVA, HTN, HLD, Hx VTE (DVT, PE), Chronic anemia/Fe deficiency anemia, Diabetes mellitus type II w/ neuropathy, GERD w/ Hx PUD, Gout, IBS who presents to the [facility] ED on 03/16/22 with history of mechanical fall on 03/14/2022 with no obvious injuries on imaging but ongoing R lower back pain/flank pain with pain regimen administration with unfortunately since then decline with inability to care for self at home with pain noted to be intractable prompting ED return for evaluation.? Patient requesting skilled placement.? She currently rates her back discomfort 8 out of 10 in severity with a constant dull aching, throbbing and intermittent sharp stabbing specifically with movement attempts or attempt to ambulate, worse with palpation of the right hip and right flank region.? Work-up in the ED included T97.5, heart rate 77, BP 160/71, respiratory rate 18, 99% on room air, CBC with WC 5.6, hemoglobin 10.9, MCV 88.8, platelet 105 without marked shift, BMP with chloride 109, BUN/creat 24/1.38, glucose 69.? Recent imaging performed on 03/14/2022 following fall with noted CT chest/abdomen/pelvis with focal wall thickening of the antrum of the stomach possibly associate with gastritis, evidence of prior recent right hemicolectomy changes with no evidence of fracture or injury, plain film of the right hand with no acute findings, plain film of the right humerus with no acute findings.? In the ED patient ministered morphine 2 mg IV x1 as well as Zofran 4 mg IV x1. Hospital Course: 1. Intractable right back pain secondary to mechanical fall?76-year-old female presented to the hospital with intractable back pain, she does have a history of neuropathy from her diabetes as well as a history of colon cancer that is currently in remission. Initially the plan was to go to a senior living facility which is what the family would like however she does not want to go anywhere other than an facility that is outside of her network and they are unable to afford private pay. I discussed the situation extensively with the patient and she would rather go home. In discussion with physical therapy and Occupational Therapy they recommended either home health or senior living facility would be suitable and so the patient would like to go home today with home health. She expressed understanding of the risks and benefits of going home and would still like to go home today. I do recommend outpatient follow-up with her PCP. She also missed her appoint with cardiology so this will need to be rescheduled. 2. Hypertension, hyperlipidemia, obesity, history of CVA, type 2 diabetes with neuropathy, chronic iron deficiency anemia, chronic thrombocytopenia, CKD 3B, history of colon cancer, anxiety, depression, gout, GERD are all chronic medical conditions which complicate her care. Her home medications were continued where appropriate Physical Exam Narrative General: Alert, Oriented x3, Cooperative, No apparent distress, some back pain HEENT: Atraumatic, PERRLA, EOMI, Normocephalic Oral: Moist Mucosa Neck: Supple, No JVD Lungs: Diminished, Normal air movement, No rhonchi, No wheeze, No rales Cardiovascular: Regular rate, Regular Rhythm, Normal S1, Normal S2, No murmurs Abdomen: Soft, Non Tender, Non-Distended, No Hepato-splenomegaly Extremities: No edema, Capillary Refill Less than 3 Seconds Skin: No rashes, No breakdown Musculoskeletal: Paraspinal muscle tenderness on the right, no radiation of the pain Neurological: Cranial nerves II-XII grossly intact, Motor Exam 5/5 strength throughout some limitation due to pain, Sensory exam intact to light touch and pain Psych/Mental Status: Normal Affect, Appropriate Weight / BMI Weight Weight: 174 lb 13.225 oz Body Mass Index (BMI) 32.1 ABG / Lab / Microbiology Data Result Diagrams: 03/18/22 05:55 03/18/22 05:55 Laboratory: Laboratory Results - last 24 hr 03/17/22 04:49: Diff Path Review Reviewed 03/17/22 16:46: POC Glucose 346 H 03/17/22 22:01: POC Glucose 340 H 03/18/22 05:55: WBC 4.3 L, RBC 3.33 L, Hgb 8.9 L, Hct 29.1 L, MCV 87.4, MCH 26.7 L, MCHC 30.6 L, RDW Std Deviation 50.1 H, RDW Coeff of Kenneth 15.7 H, Plt Count 91 L, MPV 13.0 H, Immature Gran % (Auto) 0.500, Neut % (Auto) 75.5 H, Lymph % (Auto) 16.0 L, [place] % (Auto) 8.0, Eos % (Auto) 0.0, Baso % (Auto) 0.0, Absolute Neuts (auto) 3.2, Absolute Lymphs (auto) 0.68 L, Nucleated RBC % 0 03/18/22 05:55: Sodium 138, Potassium 4.4, Chloride 105, Carbon Dioxide 26.0, Anion Gap 7, BUN 33 H, Creatinine 1.28 H, Estim Creat Clear Calc 28.66, Est GFR (MDRD) Af Amer 52 L, Est GFR (MDRD) Non-Af 43 L, BUN/Creatinine Ratio 25.8 H, Glucose 287 H, Calcium 8.6 03/18/22 06:33: POC Glucose 264 H 03/18/22 11:31: POC Glucose 191 H D/C Instructions Discharge Diet: Carb Control Diet Call your doctor if you observe: Fever of 101 or Higher, Shortness of breath, Dizziness, Fainting spells, Swelling in the ankles, Chest pain and Increased palpitations (irregular heartbeat) Meaningful Use Info Meaningful Use Diagnoses (Choose all that apply): None applicable Discharge Plan Admission Admit Date/Time: 03/16/22 20:40 Attending Provider: Sabino Nieves Primary Care Provider: Марина Weir Consulting Providers: Cat Covington Discharge Orders/Prescriptions Prescriptions: Continued allopurinol 100 mg tablet 1 tab PO DAILY lisinopril 10 mg tablet 10 mg PO DAILY sertraline 50 mg tablet 50 mg PO QHS cholecalciferol (vitamin D3) 1,000 UNIT tablet 1,000 unit PO DAILY ferrous sulfate 325 MG tablet 325 mg PO DAILY atorvastatin 40 MG tablet 40 mg PO QHS famotidine 40 MG tablet 40 mg PO BID pregabalin 300 mg capsule 300 mg PO BID Levemir FlexTouch U-100 Insuln 100 unit/mL (3 mL) insulin pen 40 unit SUBCUT QHS docusate sodium 50 mg Capsule 50 mg PO DAILY clopidogrel 75 mg tablet 75 mg DAILY hydrocodone-acetaminophen 1 TABLET tablet 1 tab PO Q6H PRN PRN (Reason: Pain) 3 Days Qty: 10 0RF sucralfate 1 gram tablet 1 g PO TID Label Comments: TAKE 1 TABLET BY MOUTH THREE TIMES DAILY BEFORE MEAL(S) aspirin 81 mg Tablet,Delayed Release (Dr/Ec) 40.5 mg PO BID Fiasp FlexTouch U-100 Insulin 100 unit/mL (3 mL) insulin pen 16 unit SUBCUT BID Fiasp FlexTouch U-100 Insulin 100 unit/mL (3 mL) insulin pen 18 unit SUBCUT DINNER pantoprazole 40 mg tablet,delayed release (DR/EC) 40 mg PO DAILY Ensure Plus High Protein 0.08 gram-1.5 kcal/mL liquid 120 ml PO BID tramadol 50 mg tablet 50 mg PO Q6H PRN (Reason: pain) Qty: 14 0RF Referrals / Follow Up: Марина Weir MD [Primary Care Provider] - Within 1 Week Disposition Disposition (needs filled in before D/C Order can be placed): Home Health Service Charges/Coding Visit Charges OBSV E&M: 95721 Observation care discharge
[2022-03-18] MEDS: oxyCODONE 5 MG Tablet PO (15:51)
== END 2022-03-18 13:12 | disposition home health service (06) ==
LOC: ED 19:36 → PCU 22:28
PROVIDERS: Admitting Provider Family Medicine; Emergency Provider Emergency Medicine; PCP Family Medicine; Visit Provider Family Medicine
DX: M54.9 Dorsalgia, unspecified (principal); E11.22 Type 2 diabetes mellitus with diabetic chronic kidney disease; E11.40 Type 2 diabetes mellitus with diabetic neuropathy, unspecified; D69.6 Thrombocytopenia, unspecified; Z79.4 Long term (current) use of insulin; N18.32 Chronic kidney disease, stage 3b; Z86.73 Personal history of transient ischemic attack (TIA), and cerebral infarction without residual deficits; E78.5 Hyperlipidemia, unspecified; F41.9 Anxiety disorder, unspecified; D50.0 Iron deficiency anemia secondary to blood loss (chronic); K21.9 Gastro-esophageal reflux disease without esophagitis; K58.9 Irritable bowel syndrome, unspecified; Z79.02 Long term (current) use of antithrombotics/antiplatelets; I12.9 Hypertensive chronic kidney disease with stage 1 through stage 4 chronic kidney disease, or unspecified chronic kidney disease; Z79.82 Long term (current) use of aspirin; Z79.899 Other long term (current) drug therapy; F32.A Depression, unspecified; E66.9 Obesity, unspecified; Z68.31 Body mass index [BMI] 31.0-31.9, adult; M10.9 Gout, unspecified; Z85.038 Personal history of other malignant neoplasm of large intestine; Z91.81 History of falling
CPT/HCPCS: 36415; 80048; 80053; 82962; 85025; 96361; 96372; 96374; 96375; 97162; 97166; 97530; 97535; 99218; 99251; 99283; J7030; A4216; G0378; G0463; J2405

== ENCOUNTER 2022-08-04 18:04 | Inpatient (IN) | payer MEDICARE, MEDICAID, SELFPAY ==
[2022-08-04] VITALS (9 sets, daily range): BP systolic 180–206; BP diastolic 67–88; PULSE 62–69; RESP 14–20; TEMP 36.1–37.1; O2SAT 95–100; BMI 31.4
[2022-08-04] MEDS: 0.9% Normal Saline 1,000 ML 150 ML IV (18:45)
[2022-08-04 18:49] LABS: Absolute Lymphocyte Count 1.08 X10^3/uL (0.83-4.51); Absolute Neutrophil Count 4.3 X10^3/uL (2.0-7.7); Basophil# 0.03 X10^3/uL; Basophil% 0.5 % (0-1); Eosinophil# 0.05 X10^3/uL; Eosinophils% 0.9 % (0-5); Hematocrit 39.4 % (37-47); Hemoglobin 12.8 g/dL (12.0-15.0); Lymphocyte # 1.08 X10^3/ul (0.83-4.51); Lymphocyte % 18.6 % (19-41); Mean Corp Hgb Conc 32.5 g/dL (32-36); Mean Corpuscular Hgb 28.5 pg (27.0-32.0); Mean Corpuscular Volume 87.8 fL (81-99); Mean Platelet Vol. 11.8 fl (6.2-12.0); Monocyte# 0.37 X10^3/uL; Monocyte% 6.4 % (0-10); NRBC Flagged by Analyzer 0 % (0-5); Neutrophil # 4.25 X10^3/uL (2.7-7.7); Neutrophil % 73.1 % (47-70); Platelet Count 174 K/mm3 (150-450); RBC Distribution Width SD 45.1 fl (35.1-43.9); Red Blood Count 4.49 M/mm3 (4.2-5.4); White Blood Count 5.8 K/mm3 (4.4-11.0)
--- NOTE | 2022-08-04 18:55 | RAD_ITS ---
STUDY: X-RAY CHEST REASON FOR EXAM: Female, 77 years old. Fever, chills, rales right lower lobe, cough TECHNIQUE: PA and lateral COMPARISON: None. FINDINGS: The lungs are clear and expanded. There is no demonstrated pleural abnormality. Normal size heart. Normal mediastinum and mark. Normal visualized pulmonary arteries. Normal visualized aortic arch and descending thoracic aorta. Dorsal spine demonstrates degenerative changes. Normal visualized ribs, clavicles, and shoulders. There is no demonstrated abnormality of the visualized soft tissue structures of the upper abdomen. RAD/Chest PA and Lateral IMPRESSION: No acute cardiopulmonary pathology. Electronically Signed: Phuc Raman MD at 19:21 EDT ,
[2022-08-04 19:30] LABS: AST(SGOT) 32 U/L (15-37); Alanine Aminotransfer ALT/SGPT 27 U/L (13-56); Albumin, Serum 3.8 g/dL (3.2-5.0); Alkaline Phosphatase 133 U/L (45-117); Anion Gap 12 (5-15); BUN 14 mg/dL (7-18); BUN/Creat Ratio 13.1 RATIO (10-20); Calcium,Total 9.2 mg/dL (8.5-10.1); Chloride 102 mmol/L (98-107); Creatinine, Serum 1.07 mg/dL (0.55-1.02); EST Glomerular Filtration Rate 53 mL/min (>60); Est Glom Filt Rate - Afr Amer 64 mL/min (>60); Estimated Creatinine Clearance 33.75 ml/min; Glucose 210 mg/dL (74-106); Potassium 3.5 mmol/L (3.5-5.1); Protein, Total 7.8 g/dL (6.4-8.2); Sodium Level 138 mmol/L (136-145)
[2022-08-04 19:32] LABS: Lactic Acid 1.2 mmol/L (0.4-1.9)
[2022-08-04] MEDS: Ondansetron 4 MG/2 ML Vial IV (19:34)
[2022-08-04 20:18] LABS: Bacteria 0 SEEN /hpf (None Seen); Mucous, Urine 0 SEEN /hpf (<or=2+)
[2022-08-04 20:32] LABS: Glucose, Dipstick Normal (Normal); Ketone-Dipstick 50 mg/dl (Negative); Leukocyte Esterase-Dipstick 100 /ul (Negative); Nitrite-Dipstick Negative (Negative); Occult Blood-Urine 150 /ul (Negative); Protein-Dipstick 100 mg/dl (Negative); Urine Urobilinogen Normal (Normal)
[2022-08-04 21:01] LABS: Urine Bilirubin Dipstick 1 mg/dL (Negative)
[2022-08-04 21:02] LABS: Color, Urine Yellow (Yellow); Urine Clarity Sl Cloudy (Clear)
[2022-08-04 21:03] LABS: Red Blood Cells-Urine 0-5 SEEN /hpf (0-5); Squamous Epithelial Cells - UA 10-25 SEEN /hpf (5-10); Transitional Epithelial - Ur 0-5 SEEN /hpf (0-5); White Blood Cells 0-5 SEEN /hpf (0-5)
--- NOTE | 2022-08-04 22:08 | CT_ITS ---
STUDY: CT BRAIN WITHOUT CONTRAST REASON FOR EXAM: Female, 77 years old. mental status change RADIATION DOSAGE (If Supplied By Facility): CTDIvol = ( 44.99 ) mGy, DLP = ( 779.24 ) mGycm TECHNIQUE: Transaxial CT imaging of the brain was performed without administration of intravenous contrast material. Individualized dose optimization techniques were used for this CT. COMPARISON: CT of the brain January 14, 2022. FINDINGS: Normal soft tissue structures. Normal calvarium. Diffuse calcific plaquing of the cavernous carotids and vertebral arteries. Mild atrophy and periventricular white matter ischemic changes.. Old lacunar infarct right basal ganglia.. Normal brainstem. Old right cerebellar infarct. There is no intracranial hemorrhage. There are no findings of an acute ischemic infarction. Normal visualized paranasal sinuses. CT/Brain/Head without Contrast IMPRESSION: Mild atrophy and periventricular white matter ischemic changes with old right lacunar infarct. No acute bleed. If concern for acute infarct MRI recommended. Electronically Signed: Phuc Raman MD at 22:45 EDT ,
--- NOTE | 2022-08-04 23:17 | ED.RN ---
pt agitated, trying to take IV's out, complaint of neuropathy to damian lower. pt and pt family unsure of what meds pt takes on a daily basis. dr Gregory updated. NO 1mg Haldol PO x1.
--- NOTE | 2022-08-04 23:35 | EDS_ITS ---
HPI History of Present Illness Chief Complaint: Shortness of Breath Detail of Chief Complaint: Patient was brought to the room because of acute change in mental status. Informant: patient (Patient is disoriented and unable to contribute much to her history.) and family Onset/Context/Timing Onset: Today and Hours Context: Sudden Onset Timing: Continuous Quality: Disorientation Location: Not applicable Current Severity: Mild Maximum Severity: Mild Worsened by: Infection, possible Relieved by: Nothing Associated Symptoms Associated Symptoms: Only able to document what daughter is able to tell me. Narrative Narrative: Patient is a 77-year-old woman with history of iron deficiency anemia due to chronic blood loss from colon cancer, peptic ulcer disease, history of CVA, essential hypertension hyperlipidemia who was recently diagnosed at outside facility, urgent care with pneumonia. She was treated with azithromycin. Daughter brought her to the emergency room because she is not acting her normal self. She states she is not able to carry on a conversation which is abnormal for her. There is been no documented fever. Daughter states she did not voice any urinary symptoms. She does have a slight cough. Prior similar symptoms: No Recent Illness/Hospitalization: Yes (Pneumonia) [facility] Medical History Adnexal mass Amaurosis fugax of right eye Anemia Arthritis Back problem Carpal tunnel syndrome Cataracts, bilateral Chronic kidney disease Closed head injury (12/17/20) Colon cancer Concussion (12/17/20) Controlled type 2 diabetes mellitus with insulin therapy Essential (primary) hypertension GERD (gastroesophageal reflux disease) Goiter Gout History of CVA (cerebrovascular accident) (01/06/20) History of pulmonary embolus (PE) (12/2017) Hyperlipemia IBS (irritable bowel syndrome) Iron deficiency anemia due to chronic blood loss Neuropathy Osteoarthritis of right knee Osteoporosis PUD (peptic ulcer disease) Seasonal allergies 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) Stroke Syncope Thyroid goiter Thyroid nodule Home Medications cholecalciferol (vitamin D3) 25 mcg (1,000 unit) tablet 1,000 unit PO DAILY supplement 02/21/17 [History Last Taken 03/16/22] allopurinol 100 mg tablet 1 tab PO DAILY gout 08/15/17 [History Last Taken 03/15/22] ferrous sulfate 325 mg (65 mg iron) tablet 325 mg PO DAILY supplement 12/13/17 [History Last Taken 03/16/22] lisinopril 10 mg tablet 10 mg PO DAILY blood pressure 06/16/20 [History Last Taken 03/16/22] sertraline 50 mg tablet 50 mg PO QHS depression 06/16/20 [History Last Taken 03/15/22] atorvastatin 40 mg tablet 40 mg PO QHS cholesterol 07/15/20 [History Last Taken 03/15/22] famotidine 40 mg tablet 40 mg PO BID acid reflux 07/15/20 [History Last Taken 03/16/22] pregabalin 300 mg capsule 300 mg PO BID nerve pain 03/02/21 [History Last Taken 03/16/22] insulin detemir U-100 100 unit/mL (3 mL) subcutaneous pen (Levemir FlexTouch U- 100 Insulin) 40 unit subcut QHS diabetes 04/12/21 [History Last Taken 03/15/22] docusate sodium 50 mg capsule 50 mg PO DAILY CONSTIPATION 01/16/22 [History Last Taken 03/16/22] clopidogrel 75 mg tablet 75 mg DAILY BLOOD THINNER 02/16/22 [History Last Taken 03/16/22] tramadol 50 mg tablet 50 mg PO Q6H PRN pain #14 tabs 02/24/22 [Rx Last Taken 03/16/22] hydrocodone-acetaminophen 5-325mg 5mg-325mg 1 tab PO Q6H PRN PRN Pain 3 days #10 TABLETS 03/14/22 [Rx Last Taken Unknown] aspirin 81 mg tablet,delayed release 40.5 mg PO BID heart health 03/16/22 [History Last Taken 03/16/22] food supplemt, lactose-reduced 0.08 gram-1.5 kcal/mL oral liquid (Ensure Plus High Protein) 120 ml PO BID SUPPLEMENT 03/16/22 [History Last Taken 03/16/22] insulin aspart (niacinamide)(U-100) 100 unit/mL(3 mL) subcutaneous pen (Fiasp FlexTouch U-100 Insulin) 16 unit subcut BID DIABETES 03/16/22 [History Last Taken 03/16/22] insulin aspart (niacinamide)(U-100) 100 unit/mL(3 mL) subcutaneous pen (Fiasp FlexTouch U-100 Insulin) 18 unit subcut DINNER DIABETES 03/16/22 [History Last Taken 03/15/22] pantoprazole 40 mg tablet,delayed release 40 mg PO DAILY ACID REFLUX 03/16/22 [History Last Taken 03/16/22] sucralfate 1 gram tablet 1 g PO TID 03/16/22 [History Last Taken 03/16/22] Allergy/AdvReac Type Severity Reaction Status Date / Time duloxetine [From Cymbalta] AdvReac Rash Verified 08/04/22 18:06 linagliptin [From Tradjenta] AdvReac Hives Verified 08/04/22 18:06 oxycodone [From OxyContin] AdvReac Rash Verified 08/04/22 18:06 Family History Unknown No problems noted. Father Alcoholism Arthritis Diabetes Hypertension Kidney disease Sister Asthma Colon cancer possibly ovarian but unsure Daughter Depression Cancer daughter 1 - colon, cervical, melanoma daughter 2 - cervical Mother Diabetes Kidney disease Grandmother Diabetes maternal Surgical History H/O right hemicolectomy H/O tubal ligation History of back surgery History of carpal tunnel release History of cataract surgery History of knee replacement History of loop recorder (12/12/19) History of robot-assisted laparoscopic hysterectomy (10/02/19) History of salpingo-oophorectomy (10/02/19) Hx of appendectomy Hx of cholecystectomy Social History household members: none housing: other details: Lives at home alone with an aide 4 times per week number of children: 5 pets and animals: Yes pets and animals: cat(s) Smoking Status: Never smoker second hand exposure: No alcohol intake: never substance use type: does not use ROS ROS ED Constitutional Constitutional ED: Denies chills or fever(s) Eyes Eyes: Denies change in vision ENT ENT ED: Denies ear pain or sore throat Cardiovascular Cardiovascular: Denies chest pain Respiratory/Chest Respiratory/Chest: Reports cough and dyspnea Gastrointestinal Gastrointestinal: Reports diarrhea and vomiting Genitourinary Genitourinary ED: Denies dysuria or hematuria Neurologic Neurologic: Reports other Details: Acute change in mental status EXAM Physical Exam Const Vital Signs: 08/04/22 18:06 08/04/22 18:41 08/04/22 18:43 Temperature 97 F L Temperature Source Temporal Pulse Rate 62 64 Respiratory Rate 14 20 H Respiratory Effort Normal Non-Labored Respiratory Depth Shallow Respiratory Pattern Normal Blood Pressure 206/73 H 188/75 H Blood Pressure Mean 117 112 Pulse Ox 100 96 Oxygen Delivery Method Room Air Room Air Room Air 08/04/22 18:07 08/04/22 19:35 08/04/22 20:07 Temperature 98.8 F 98.8 F Temperature Source Temporal Temporal Pulse Rate 63 68 Respiratory Rate 17 19 H Respiratory Effort Respiratory Depth Respiratory Pattern Blood Pressure 188/75 H 186/73 H 190/68 H Blood Pressure Mean 112 110 108 Pulse Ox 95 96 Oxygen Delivery Method Room Air Room Air 08/04/22 21:00 08/04/22 21:51 Temperature Temperature Source Pulse Rate 69 Respiratory Rate 15 Respiratory Effort Respiratory Depth Respiratory Pattern Blood Pressure 180/67 H 181/76 H Blood Pressure Mean 104 111 Pulse Ox 99 Oxygen Delivery Method Room Air Positive well nourished, well developed and obese General Appearance ED: well developed, NAD and pallor; Negative for cyanotic or diaphoretic Nutritional Appearance: obese HEENT Reports moist mucous membranes HEENT Narrative: Head is atraumatic normocephalic. Ears normal. TMs normal. Nares patent. There is no discharge. Uvula is midline. There is no erythema or exudate the posterior pharynx. There is no dysphonia. Eyes PERRL and EOMs intact bilaterally Eyes Narrative: There is no nystagmus. General Eye ED: Negative for pale conjunctiva or scleral icterus Neck no lymphadenopathy, supple and no JVD Neck Narrative: Trachea is midline. Chest Wall inspection of chest normal and palpation of chest normal Resp normal respiratory effort and clear to auscultation bilaterally Cardio regular rate, regular rhythm, S1 normal heart sound, S2 normal heart sound and no murmurs GI normal to inspection, nondistended, normoactive bowel sounds, non-tender and non-distended; Negative for hepatosplenomegaly or no masses Back/Spine no CVA tenderness Extremity normal to inspection General Extremety ED: Yes edema General Extremity: edema Neuro No oriented x3 and CN's II-XII intact bilaterally Neuro Narrative: Patient is disoriented to time. She is oriented to place and name. She does not know her age. Sensorium / Orientation: Negative for alert Psych mental status grossly normal Skin no rashes or lesions noted, no wounds and skin turgor normal General Skin Exam: pallor; Negative for elasticity normal or jaundice MDM MDM MDM Narrative Medical decision making narrative: Recent diagnosis of pneumonia and acute change in mental status concerned this may represent infectious encephalopathy. When asked specifically she had discomfort with urination she acknowledged yes. Will obtain UA to rule out urinary tract infection as a cause of her change in mental status. Appropriate blood work was obtained to assess for metabolic and infectious causes of her acute mental status. Since her work-up was unremarkable CT of the head was obtained. Records from outside facility were reviewed. Daughter brought in paperwork from the outside facility. She is presently on azithromycin. History & Record Review Discussion w/independent historian: Patient Additional record(s) reviewed:: Prior outpatient record (Recent admission for COVID and debility.), Prior ED visit (For abdominal pain, closed head injury.) and Prior labs Lab Data Attestation: I reviewed the patient's lab results. Lab results narrative: CBC is unremarkable. Basic metabolic panel is unremarkable. Lactate is normal. Hepatic profile is normal. UA is negative. Labs: Laboratory Results - last 24 hr 08/04/22 08/04/22 08/04/22 18:30 18:30 18:30 WBC 5.8 RBC 4.49 Hgb 12.8 Hct 39.4 MCV 87.8 MCH 28.5 MCHC 32.5 RDW Std Deviation 45.1 H RDW Coeff of Kenneth 14.0 Plt Count 174 MPV 11.8 Immature Gran % (Auto) 0.500 Neut % (Auto) 73.1 H Lymph % (Auto) 18.6 L [place] % (Auto) 6.4 Eos % (Auto) 0.9 Baso % (Auto) 0.5 Absolute Neuts (auto) 4.3 Absolute Lymphs (auto) 1.08 Nucleated RBC % 0 Sodium 138 Potassium 3.5 Chloride 102 Carbon Dioxide 24.0 Anion Gap 12 BUN 14 Creatinine 1.07 H Estim Creat Clear Calc 33.75 Est GFR (MDRD) Af Amer 64 Est GFR (MDRD) Non-Af 53 L BUN/Creatinine Ratio 13.1 Glucose 210 H Lactic Acid 1.2 Calcium 9.2 Total Bilirubin 0.90 AST 32 ALT 27 Alkaline Phosphatase 133 H Total Protein 7.8 Albumin 3.8 Globulin 4.0 Albumin/Globulin Ratio 1.0 Urine Color Urine Clarity Urine pH Ur Specific [place] Urine Protein Urine Glucose (UA) Urine Ketones Urine Occult Blood Urine Nitrite Urine Bilirubin Urine Urobilinogen Ur Leukocyte Esterase Urine RBC Urine WBC Ur Squamous Epith Cells Ur Transition Epith Cell Urine Bacteria Urine Mucus 08/04/22 20:04 WBC RBC Hgb Hct MCV MCH MCHC RDW Std Deviation RDW Coeff of Kenneth Plt Count MPV Immature Gran % (Auto) Neut % (Auto) Lymph % (Auto) [place] % (Auto) Eos % (Auto) Baso % (Auto) Absolute Neuts (auto) Absolute Lymphs (auto) Nucleated RBC % Sodium Potassium Chloride Carbon Dioxide Anion Gap BUN Creatinine Estim Creat Clear Calc Est GFR (MDRD) Af Amer Est GFR (MDRD) Non-Af BUN/Creatinine Ratio Glucose Lactic Acid Calcium Total Bilirubin AST ALT Alkaline Phosphatase Total Protein Albumin Globulin Albumin/Globulin Ratio Urine Color Yellow Urine Clarity Sl Cloudy Urine pH 6.0 Ur Specific [place] 1.020 Urine Protein 100 H Urine Glucose (UA) Normal Urine Ketones 50 H Urine Occult Blood 150 H Urine Nitrite Negative Urine Bilirubin 1 H Urine Urobilinogen Normal Ur Leukocyte Esterase 100 H Urine RBC 0-5 SEEN Urine WBC 0-5 SEEN Ur Squamous Epith Cells 10-25 SEEN Ur Transition Epith Cell 0-5 SEEN Urine Bacteria 0 SEEN Urine Mucus 0 SEEN Radiography Chest X-Ray - ED: 1 View and Read by ED Physician (There is no acute process. Cardiac silhouette and size unremarkable. Perihilar region unremarkable. Lung parenchyma unremarkable. Osseous structures are unremarkable. This was independent reviewed interpreted by me.) Diagnostic Testing: Clinical Impression(s) from Imaging Studies Chest X-Ray 08/04/22 18:55 IMPRESSION: No acute cardiopulmonary pathology. Electronically Signed: Phuc Raman MD at 19:21 EDT , Brain CT 08/04/22 22:08 IMPRESSION: Mild atrophy and periventricular white matter ischemic changes with old right lacunar infarct. No acute bleed. If concern for acute infarct MRI recommended. Electronically Signed: Phuc Raman MD at 22:45 EDT , Differential Diagnosis Chest pain/SOB: pneumonia Reason(s) pneumonia less likely: Positive for no infiltrate on CXR, no elevation in WBC count, no noted fever and symptoms not consistent with acute infection Treatment and Re-Evaluation :: Daughter was informed of results and reason for CAT scan. She was informed of CAT scan results. Since patient is still disoriented will contact hospitalist for admission for acute encephalopathy of unknown cause. Discharge Plan Triage Chief Complaint: Shortness of Breath ED Provider: Dev Gregory Dx/Rx/DC Orders Clinical Impression: Acute encephalopathy, Controlled type 2 diabetes mellitus with insulin therapy, Hyperlipemia, Essential (primary) hypertension, History of CVA (cerebrovascular accident) Prescriptions: No Action allopurinol 100 mg tablet 1 tab PO DAILY lisinopril 10 mg tablet 10 mg PO DAILY sertraline 50 mg tablet 50 mg PO QHS cholecalciferol (vitamin D3) 1,000 UNIT tablet 1,000 unit PO DAILY ferrous sulfate 325 MG tablet 325 mg PO DAILY atorvastatin 40 MG tablet 40 mg PO QHS famotidine 40 MG tablet 40 mg PO BID pregabalin 300 mg capsule 300 mg PO BID Levemir FlexTouch U-100 Insuln 100 unit/mL (3 mL) insulin pen 40 unit SUBCUT QHS docusate sodium 50 mg Capsule 50 mg PO DAILY clopidogrel 75 mg tablet 75 mg DAILY hydrocodone-acetaminophen 1 TABLET tablet 1 tab PO Q6H PRN PRN (Reason: Pain) 3 Days Qty: 10 0RF sucralfate 1 gram tablet 1 g PO TID Label Comments: TAKE 1 TABLET BY MOUTH THREE TIMES DAILY BEFORE MEAL(S) aspirin 81 mg Tablet,Delayed Release (Dr/Ec) 40.5 mg PO BID Fiasp FlexTouch U-100 Insulin 100 unit/mL (3 mL) insulin pen 16 unit SUBCUT BID Fiasp FlexTouch U-100 Insulin 100 unit/mL (3 mL) insulin pen 18 unit SUBCUT DINNER pantoprazole 40 mg tablet,delayed release (DR/EC) 40 mg PO DAILY Ensure Plus High Protein 0.08 gram-1.5 kcal/mL liquid 120 ml PO BID tramadol 50 mg tablet 50 mg PO Q6H PRN (Reason: pain) Qty: 14 0RF Primary Care Provider: Akanksha Bolton Referrals: Akanksha Bolton MD [Primary Care Provider] - Disposition Disposition: Acute Care Hospital [facility]
[2022-08-04] MEDS: Haloperidol 1 MG Tablet PO (23:46)
[2022-08-05] VITALS (11 sets, daily range): BP systolic 153–191; BP diastolic 45–88; PULSE 63–86; RESP 16–18; TEMP 36.6–37.2; O2SAT 94–100; BMI 29.9
--- NOTE | 2022-08-05 00:05 | HP.PCM.HOS_ITS ---
HPI - General General Date of Admission: 08/05/22 Date of Service: 08/05/22 Chief Complaint: Altered mental status HPI Narrative LADI MCCABE, is a 77 F with a significant history of DM and previous CVA who present to the hospital with altered mental status that started on the same day of presentation. Reportedly patient lives at home with her elder sister who is unable to take care of her. Patient reportedly was unresponsive and confused at home. Her symptoms has been persistent. Patient went to [facility] ED and was started on Z-Temo for pneumonia. She began taking a Z-Temo on August 03. Also she was prescribed Celebrex at [facility]. While emergency department doctor reported that upon his evaluation patient did not know the name of the president upon evaluation by the hospitalist later on patient could tell the name of the president. Patient stated that she is a DNR DO NOT RESUSCITATE with no intubation. Reported his son Fritz Mccabe is her POA. [facility] Medical History (Updated 08/05/22 @ 06:[address] Emeka Hays MD) Adnexal mass Amaurosis fugax of right eye Anemia Arthritis Back problem Carpal tunnel syndrome Cataracts, bilateral Chronic kidney disease Closed head injury (12/17/20) Colon cancer Concussion (12/17/20) Controlled type 2 diabetes mellitus with insulin therapy Essential (primary) hypertension GERD (gastroesophageal reflux disease) Goiter Gout History of CVA (cerebrovascular accident) (01/06/20) History of pulmonary embolus (PE) (12/2017) Hyperlipemia IBS (irritable bowel syndrome) Iron deficiency anemia due to chronic blood loss Neuropathy Osteoarthritis of right knee Osteoporosis PUD (peptic ulcer disease) Seasonal allergies 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) Stroke Syncope Thyroid goiter Thyroid nodule Home Medications cholecalciferol (vitamin D3) 25 mcg (1,000 unit) tablet 1,000 unit PO DAILY supplement 02/21/17 [History Last Taken 03/16/22] allopurinol 100 mg tablet 1 tab PO DAILY gout 08/15/17 [History Last Taken 03/15/22] ferrous sulfate 325 mg (65 mg iron) tablet 325 mg PO DAILY supplement 12/13/17 [History Last Taken 03/16/22] lisinopril 10 mg tablet 10 mg PO DAILY blood pressure 06/16/20 [History Last Riaz en 03/16/22] sertraline 50 mg tablet 50 mg PO QHS depression 06/16/20 [History Last Taken 03/15/22] atorvastatin 40 mg tablet 40 mg PO QHS cholesterol 07/15/20 [History Last Taken 03/15/22] famotidine 40 mg tablet 40 mg PO BID acid reflux 07/15/20 [History Last Taken 03/16/22] pregabalin 300 mg capsule 300 mg PO BID nerve pain 03/02/21 [History Last Taken 03/16/22] insulin detemir U-100 100 unit/mL (3 mL) subcutaneous pen (Levemir FlexTouch U- 100 Insulin) 40 unit subcut QHS diabetes 04/12/21 [History Last Taken 03/15/22] docusate sodium 50 mg capsule 50 mg PO DAILY CONSTIPATION 01/16/22 [History Last Taken 03/16/22] clopidogrel 75 mg tablet 75 mg DAILY BLOOD THINNER 02/16/22 [History Last Taken 03/16/22] tramadol 50 mg tablet 50 mg PO Q6H PRN pain #14 tabs 02/24/22 [Rx Last Taken 03/16/22] hydrocodone-acetaminophen 5-325mg 5mg-325mg 1 tab PO Q6H PRN PRN Pain 3 days #10 TABLETS 03/14/22 [Rx Last Taken Unknown] aspirin 81 mg tablet,delayed release 40.5 mg PO BID heart health 03/16/22 [Hi story Last Taken 03/16/22] food supplemt, lactose-reduced 0.08 gram-1.5 kcal/mL oral liquid (Ensure Plus High Protein) 120 ml PO BID SUPPLEMENT 03/16/22 [History Last Taken 03/16/22] insulin aspart (niacinamide)(U-100) 100 unit/mL(3 mL) subcutaneous pen (Fiasp FlexTouch U-100 Insulin) 16 unit subcut BID DIABETES 03/16/22 [History Last Taken 03/16/22] insulin aspart (niacinamide)(U-100) 100 unit/mL(3 mL) subcutaneous pen (Fiasp FlexTouch U-100 Insulin) 18 unit subcut DINNER DIABETES 03/16/22 [History Last Taken 03/15/22] pantoprazole 40 mg tablet,delayed release 40 mg PO DAILY ACID REFLUX 11/09/22 [History Last Taken 03/16/22] sucralfate 1 gram tablet 1 g PO TID 03/16/22 [History Last Taken 03/16/22] Allergy/AdvReac Type Severity Reaction Status Date / Time duloxetine [From Cymbalta] AdvReac Rash Verified 08/04/22 18:06 linagliptin [From Tradjenta] AdvReac Hives Verified 08/04/22 18:06 oxycodone [From OxyContin] AdvReac Rash Verified 08/04/22 18:06 Family History Unknown No problems noted. Father Alcoholism Arthritis Diabetes Hypertension Kidney disease Sister Asthma Colon cancer possibly ovarian but unsure Daughter Depression Cancer daughter 1 - colon, cervical, melanoma daughter 2 - cervical Mother Diabetes Kidney disease Grandmother Diabetes maternal Family History no significant family his no significant family history Surgical History H/O right hemicolectomy H/O tubal ligation History of back surgery History of carpal tunnel release History of cataract surgery History of knee replacement History of loop recorder (12/12/19) History of robot-assisted laparoscopic hysterectomy (10/02/19) History of salpingo-oophorectomy (10/02/19) Hx of appendectomy Hx of cholecystectomy Social History household members: none housing: other details: Lives at home alone with an aide 4 times per week number of children: 5 pets and animals: Yes pets and animals: cat(s) Smoking Status: Never smoker second hand exposure: No alcohol intake: never substance use type: does not use ROS ROS Narrative Pertinent positives and pertinent negatives as noted in HPI. All other systems were reviewed and are negative Vital Signs Vital Signs Vital Signs: 08/04/22 18:06 08/04/22 18:41 08/04/22 18:43 Temperature 97 F L Temperature Source Temporal Pulse Rate 62 64 Respiratory Rate 14 20 H Respiratory Effort Normal Non-Labored Respiratory Depth Shallow Respiratory Pattern Normal Blood Pressure 206/73 H 188/75 H Blood Pressure Mean 117 112 Pulse Ox 100 96 Oxygen Delivery Method Room Air Room Air Room Air 08/04/22 18:07 08/04/22 19:35 08/04/22 20:07 Temperature 98.8 F 98.8 F Temperature Source Temporal Temporal Pulse Rate 63 68 Respiratory Rate 17 19 H Respiratory Effort Respiratory Depth Respiratory Pattern Blood Pressure 188/75 H 186/73 H 190/68 H Blood Pressure Mean 112 110 108 Pulse Ox 95 96 Oxygen Delivery Method Room Air Room Air 08/04/22 21:00 08/04/22 21:51 08/04/22 23:00 Temperature Temperature Source Pulse Rate 69 68 Respiratory Rate 15 16 Respiratory Effort Respiratory Depth Respiratory Pattern Blood Pressure 180/67 H 181/76 H 180/88 H Blood Pressure Mean 104 111 118 Pulse Ox 99 99 Oxygen Delivery Method Room Air Room Air Weight Weight: 75.5 kg Body Mass Index (BMI) 31.4 Physical Exam Narrative Physical exam: General: Well-nourished, well-developed. Head: Normocephalic, atraumatic, no tenderness Eyes: Vision is grossly intact. EOMI ENT, no trauma, moist mucous membranes, no rhinorrhea Neck: Nontender, No thyromegaly. CVS: Regular rate and rhythm. S1-S2 present. No murmur, gallop or rub. Respiratory : clear to auscultation bilaterally, chest wall nontender Abdomen: Soft, nontender, nondistended, normal bowel sounds, no masses : Deferred Back: Nontender, no CVA tenderness, no midline spinal tenderness, deformities, step-offs Extremities: Nontender full range of motion, no trauma Skin: Normal color, no trauma, abrasions Neuro: Alert. Patient did not know the day, the month or the year. Patient's knew that she was at [facility] although at her first attempt she stated that she was at [facility]. Cranial nerves II through XII grossly intact. Patient knew that the film maker was Leonie. Patient could spell the face name of his son, Fritz who is his POA. Patient did not know the name of her lhipdgbe-yv-ikc who was at the bedside. When asked of the name of her hysczqty-xz-eav who was at the bedside she mentioned the name of a different daughter in law who was not at the bedside. Psychiatry: Normal mood. Normal affect. Not depressed. Not anxious. Results Lab / Micro Data Result Diagrams: 08/04/22 18:30 08/04/22 18:30 Labs: Laboratory Results - last 24 hr 08/04/22 18:30: WBC 5.8, RBC 4.49, Hgb 12.8, Hct 39.4, MCV 87.8, MCH 28.5, MCHC 32.5, RDW Std Deviation 45.1 H, RDW Coeff of Kenneth 14.0, Plt Count 174, MPV 11.8, Immature Gran % (Auto) 0.500, Neut % (Auto) 73.1 H, Lymph % (Auto) 18.6 L, [place] % (Auto) 6.4, Eos % (Auto) 0.9, Baso % (Auto) 0.5, Absolute Neuts (auto) 4.3, Absolute Lymphs (auto) 1.08, Nucleated RBC % 0 08/04/22 18:30: Sodium 138, Potassium 3.5, Chloride 102, Carbon Dioxide 24.0, Anion Gap 12, BUN 14, Creatinine 1.07 H, Estim Creat Clear Calc 33.75, Est GFR (MDRD) Af Amer 64, Est GFR (MDRD) Non-Af 53 L, BUN/Creatinine Ratio 13.1, Glucose 210 H, Calcium 9.2, Total Bilirubin 0.90, AST 32, ALT 27, Alkaline Phosphatase 133 H, Total Protein 7.8, Albumin 3.8, Globulin 4.0, Albumin/Globulin Ratio 1.0 08/04/22 18:30: Lactic Acid 1.2 08/04/22 20:04: Urine Color Yellow, Urine Clarity Sl Cloudy, Urine pH 6.0, Ur Specific [place] 1.020, Urine Protein 100 H, Urine Glucose (UA) Normal, Urine K etones 50 H, Urine Occult Blood 150 H, Urine Nitrite Negative, Urine Bilirubin 1 H, Urine Urobilinogen Normal, Ur Leukocyte Esterase 100 H, Urine RBC 0-5 SEEN, Urine WBC 0-5 SEEN, Ur Squamous Epith Cells 10-25 SEEN, Ur Transition Epith Cell 0-5 SEEN, Urine Bacteria 0 SEEN, Urine Mucus 0 SEEN Radiology Impression Chest X-Ray 08/04/22 18:55 IMPRESSION: No acute cardiopulmonary pathology. Electronically Signed: Phuc Raman MD at 19:21 EDT Reading Location ID and State: [facility] / [place] , Service support , Brain CT 08/04/22 22:08 IMPRESSION: Mild atrophy and periventricular white matter ischemic changes with old right lacunar infarct. No acute bleed. If concern for acute infarct MRI recommended. Electronically Signed: Phuc Raman MD at 22:45 EDT , Assessment & Plan Assessment/Plan (1) Acute encephalopathy: (2) Essential (primary) hypertension: PLAN: Plan Acute encephalopathy Etiology unclear. Already improved since patient has been to the ED. ABG done; does not showed cause. TSH, vitamin B12 and ammonia level ordered. Urinalysis is unremarkable. Will check urine culture. Chest x-ray showed no acute cardiopulmonary process and I agree with radiology interpretation. CT head with old lacunar infarcts. No acute pathology. CBC is unremarkable. Trend. CMP is unremarkable except mild elevation in alkaline phosphatase. Trend CMP. Recent pneumonia We will check a procalcitonin. Will continue Zithromycin. Hypertension Blood pressure is not within goal Home medication is yet to be verified. As needed hydralazine ordered. Trend blood pressure and adjust blood pressure medications. DVT prophylaxis Subcutaneous Lovenox ordered. Charges/Coding Visit Charges Inpatient E&M: 23574 Init Hosp L2
[2022-08-05 00:50] LABS: Allen Test Positive; Base Excess 2 mmol/L (-2 to +2); Bicarbonate 26.4 mmol/L (22-26); Blood Gas Specimen Type ART; O2 Delivery Device Room Air; PO2 74 mmHG (75-100); SITE L Radial; SO2 95 % (95-99); Total Carbon Dioxide 28 mmol/L; pCO2 40.4 mmHg (35-45); pH 7.42 (7.35-7.45)
[2022-08-05] MEDS: hydrALAZINE 20 MG/ML Vial 10 MG IV ×3 (01:54→19:49)
[2022-08-05] MEDS: 0.9% Saline Lock 10 ML Syringe IV ×4 (01:54→19:51)
[2022-08-05 02:43] LABS: Procalcitonin < 0.04 ng/mL (0.00-0.09)
[2022-08-05] MEDS: Acetaminophen 325 MG Tablet 650 MG PO ×2 (03:25→11:56)
[2022-08-05] MEDS: Ondansetron 4 MG/2 ML Vial IV ×2 (03:49→19:55)
[2022-08-05 06:49] LABS: Absolute Lymphocyte Count 0.95 X10^3/uL (0.83-4.51); Absolute Neutrophil Count 3.4 X10^3/uL (2.0-7.7); Basophil# 0.02 X10^3/uL; Basophil% 0.4 % (0-1); Eosinophil# 0.11 X10^3/uL; Eosinophils% 2.3 % (0-5); Hematocrit 37.2 % (37-47); Hemoglobin 12.1 g/dL (12.0-15.0); Lymphocyte # 0.95 X10^3/ul (0.83-4.51); Lymphocyte % 19.5 % (19-41); Mean Corp Hgb Conc 32.5 g/dL (32-36); Mean Corpuscular Hgb 28.5 pg (27.0-32.0); Mean Corpuscular Volume 87.5 fL (81-99); Mean Platelet Vol. 11.3 fl (6.2-12.0); Monocyte# 0.35 X10^3/uL; Monocyte% 7.2 % (0-10); NRBC Flagged by Analyzer 0 % (0-5); Neutrophil # 3.42 X10^3/uL (2.7-7.7); Neutrophil % 70.4 % (47-70); Platelet Count 144 K/mm3 (150-450); RBC Distribution Width CV 14.2 % (11.6-14.6); RBC Distribution Width SD 45.3 fl (35.1-43.9); Red Blood Count 4.25 M/mm3 (4.2-5.4); White Blood Count 4.9 K/mm3 (4.4-11.0)
[2022-08-05] MEDS: Insulin Lispro 100 UNIT/ML INSULN.PEN SC ×4 (06:56→21:16)
[2022-08-05 07:22] LABS: AST(SGOT) 35 U/L (15-37); Alanine Aminotransfer ALT/SGPT 27 U/L (13-56); Albumin, Serum 3.5 g/dL (3.2-5.0); Alkaline Phosphatase 117 U/L (45-117); Anion Gap 9 (5-15); BUN 14 mg/dL (7-18); BUN/Creat Ratio 13.3 RATIO (10-20); Chloride 105 mmol/L (98-107); Creatinine, Serum 1.05 mg/dL (0.55-1.02); EST Glomerular Filtration Rate 54 mL/min (>60); Est Glom Filt Rate - Afr Amer 66 mL/min (>60); Globulin 3.5 g/dL (2.2-4.2); Glucose 213 mg/dL (74-106); Potassium 3.2 mmol/L (3.5-5.1); Sodium Level 140 mmol/L (136-145)
[2022-08-05 07:31] LABS: Bedside Glucose 204 mg/dL (74-106)
[2022-08-05 07:31] LABS: Thyroid Stim Hormone (TSH) 1.69 uIU/mL (0.358-3.74)
--- NOTE | 2022-08-05 07:41 | PN.HOSP_ITS ---
Reason for Visit Reason for Visit: Diagnoses Encephalopathy, unspecified (08/05/22) Essential (primary) hypertension (08/05/22) Subjective Subjective Does not feel well. Does not really elaborate any specific symptoms, however. Objective Data Objective Data Vital Signs: Vital Signs Temp Pulse Resp BP Pulse Ox O2 Del Method 36.8 C 73 18 170/64 H 95 Room Air 08/05/22 06:33 08/05/22 06:43 08/05/22 06:33 08/05/22 06:43 08/05/22 06:33 08/05/22 06:33 Oxygen Delivery Method Room Air Weight: 72.1 kg Body Mass Index (BMI) 29.9 Intake & Output: Intake and Output for Last 24 Hours 08/03/22 08/04/22 08/05/22 23:59 23:59 23:59 Intake Total 1100 / 1100 Balance 1100 / 1100 Lab / Micro Data Result Diagrams: 08/05/22 06:30 08/05/22 06:30 Labs: Laboratory Results - last 24 hr 08/04/22 18:30: WBC 5.8, RBC 4.49, Hgb 12.8, Hct 39.4, MCV 87.8, MCH 28.5, MCHC 32.5, RDW Std Deviation 45.1 H, RDW Coeff of Kenneth 14.0, Plt Count 174, MPV 11.8, Immature Gran % (Auto) 0.500, Neut % (Auto) 73.1 H, Lymph % (Auto) 18.6 L, Cavalier % (Auto) 6.4, Eos % (Auto) 0.9, Baso % (Auto) 0.5, Absolute Neuts (auto) 4.3, Absolute Lymphs (auto) 1.08, Nucleated RBC % 0 08/04/22 18:30: Sodium 138, Potassium 3.5, Chloride 102, Carbon Dioxide 24.0, Anion Gap 12, BUN 14, Creatinine 1.07 H, Estim Creat Clear Calc 33.75, Est GFR (MDRD) Af Amer 64, Est GFR (MDRD) Non-Af 53 L, BUN/Creatinine Ratio 13.1, Glucose 210 H, Calcium 9.2, Total Bilirubin 0.90, AST 32, ALT 27, Alkaline Phosphatase 133 H, Total Protein 7.8, Albumin 3.8, Globulin 4.0, Albumin/Globulin Ratio 1.0 08/04/22 18:30: Lactic Acid 1.2 08/04/22 20:04: Urine Color Yellow, Urine Clarity Sl Cloudy, Urine pH 6.0, Ur Specific [place] 1.020, Urine Protein 100 H, Urine Glucose (UA) Normal, Urine Ketones 50 H, Urine Occult Blood 150 H, Urine Nitrite Negative, Urine Bilirubin 1 H, Urine Urobilinogen Normal, Ur Leukocyte Esterase 100 H, Urine RBC 0-5 SEEN, Urine WBC 0-5 SEEN, Ur Squamous Epith Cells 10-25 SEEN, Ur Transition Epith Cell 0-5 SEEN, Urine Bacteria 0 SEEN, Urine Mucus 0 SEEN 08/05/22 02:00: Ammonia 14.0 08/05/22 02:00: Procalcitonin < 0.04 08/05/22 06:30: WBC 4.9, RBC 4.25, Hgb 12.1, Hct 37.2, MCV 87.5, MCH 28.5, MCHC 32.5, RDW Std Deviation 45.3 H, RDW Coeff of Kenneth 14.2, Plt Count 144 L, MPV 11.3, Immature Gran % (Auto) 0.200, Neut % (Auto) 70.4 H, Lymph % (Auto) 19.5, Cavalier % (Auto) 7.2, Eos % (Auto) 2.3, Baso % (Auto) 0.4, Absolute Neuts (auto) 3.4, Absolute Lymphs (auto) 0.95, Nucleated RBC % 0 08/05/22 06:30: TSH 1.69 08/05/22 06:30: Sodium 140, Potassium 3.2 L, Chloride 105, Carbon Dioxide 26.0, Anion Gap 9, BUN 14, Creatinine 1.05 H, Estim Creat Clear Calc 34.40, Est GFR (MDRD) Af Amer 66, Est GFR (MDRD) Non-Af 54 L, BUN/Creatinine Ratio 13.3, Glucose 213 H, Calcium 9.0, Total Bilirubin 0.70, AST 35, ALT 27, Alkaline Phosphatase 117, Total Protein 7.0, Albumin 3.5, Globulin 3.5, Albumin/Globulin Ratio 1.0 08/05/22 06:47: POC Glucose 204 H ABG Data ABG results: ABG 08/05/22 00:45 Specimen Type ART Sample Site L Radial pH 7.42 Bicarbonate Actual 26.4 H Total CO2 28 Base Excess 2 O2 Saturation 95 ABG pCO2 40.4 ABG pO2 74 L Ezra Test Positive O2 Delivery Device Room Air Radiography Diagnostic Testing: Radiology Impression Chest X-Ray 08/04/22 18:55 IMPRESSION: No acute cardiopulmonary pathology. Electronically Signed: Phuc Raman MD at 19:21 EDT , Brain CT 08/04/22 22:08 IMPRESSION: Mild atrophy and periventricular white matter ischemic changes with old right lacunar infarct. No acute bleed. If concern for acute infarct MRI recommended. Electronically Signed: Phuc Raman MD at 22:45 EDT , Physical Exam Const alert Constitutional Narrative: Appears anxious but nontoxic. Resp normal respiratory effort, no retractions, no use of accessory muscles and clear to auscultation bilaterally Cardio regular rate, regular rhythm, S1 normal heart sound and S2 normal heart sound GI normal to inspection, nondistended, normoactive bowel sounds, soft to palpation, non-tender and non-distended Extremity normal to inspection Assessment & Plan Assessment/Plan (1) Acute encephalopathy: PLAN: Etiology unclear. Already improved since patient has been to the ED. Work up so far negative: ABG done; does not showed cause. UA negative. Ammonia negative. head CT w/o acute process. TSH, vitamin B12 and ammonia level ordered. Could be iatrogenic: does take pregabalin. Last received a tramadol rx on 07/11 (#7). PLAN: Plan Recent pneumonia: Procalcitonin negative. Will continue Zithromycin. Hypertension Blood pressure is not within goal Home medication is yet to be verified. As needed hydralazine ordered. Trend blood pressure and adjust blood pressure medications. DVT prophylaxis Subcutaneous Lovenox ordered. 08/05: Family requested to see me after I seen the patient in the morning. Told the nurse, due to the discharges and admissions that I would be few hours before he can get up there. I was able to get up in the evening and the family was no longer present. We will reattempt 08/06. Charges/Coding Visit Charges Inpatient E&M: 25834 Subs Hosp L2
[2022-08-05] MEDS: Azithromycin 250 MG Tablet 500 MG PO (08:04)
[2022-08-05] MEDS: Lisinopril 10 MG Tablet PO (08:04)
[2022-08-05] MEDS: Enoxaparin 40 MG/0.4 ML Syringe SC (08:04)
[2022-08-05] MEDS: Glucerna Shake 120 ML LIQUID PO ×2 (08:04→21:15)
[2022-08-05] MEDS: Potassium Chloride Oral Tablet 20 MEQ 40 MEQ PO (09:18)
[2022-08-05 10:33] LABS: Vitamin B12 299 pg/mL (211-911)
[2022-08-05 12:15] LABS: Bedside Glucose 217 mg/dL (74-106)
--- NOTE | 2022-08-05 13:30 | CASEMGMT ---
RN?CM?TSO?CM?to room to meet with patient and family for initial transition planning/care coordination?assessment.?RN?CM?introduced self and role at [facility].? Pt resting in bed in no distress at this time. Pt is confused. DtrRama, @ bedside and pt looked at her, acknowledged that she knew her, but states does not know her name. The following information obtained from Rama. Rama states she thinks her bro, Cristian, is POA and that her sister, Kelly, is very involved in pt's care and would be able to answer any further information needed. PCP: Dr Bolton listed as PCP. Rama states is not sure. Specialists: Rama is not sure Preferred Pharmacy: [facility] Retail Insurance: SRINIVASA OMALLEY Prescription Benefit:?Yes Living Will/HPOA:?Rama thinks pt's son, Cristian, is HCPOA. AD not on file @ [facility]. LNOK: pt has 5 adult children. Son/possible POCristian Chiang. Dtr, Kelly. Rama Monroe. Living Arrangements: Pt has been staying at her sister's home since May. after discharging from [facility] while awaiting opening @ [facility]. Per Rama, pt's sister has been helping to take care of her but she has informed the family she did not know how much care pt needed and it has been too much for her to manage. Pt needs assistance w/bathing and dressing. Family assists w/meals. DtrKelly, takes her to appts. SHANK TAPER: Rama states someone comes to pt's sister's home several days a week to assist her, but she is not sure what agency she is from. Transportation:?dtr, Kelly. DME: ? Per Rama, pt has a shower chair and walker. HHC/SNF: Per Rama, pt has been to [facility] about 3 times w/last discharge being in May. Pt on list @ [facility] for Assisted Living. Per Rama, the family has discussed things for pt and they would like her to return to [facility]. MARVA Duarte, made aware. PLAN:??SNF. Emperatriz BSN?RN?CM
--- NOTE | 2022-08-05 14:08 | CM.UR ---
Pt's daughter, Rama, requested [facility] for placement. SW spoke with daughter Kelly and son Cristian as well, both are in agreement with [facility]. Cristian reports he is the HCPOA and he will bring documentation to hospital. Cristian requested a medical update on his mother and request given to patient's nurse. Referral sent to [facility] via [facility]. Angela Layne AP[employer]INE PHYSICS PROFESSOR, SALES REPRESENTATIVE [facility]
[2022-08-05 14:56] LABS: Bedside Glucose 162 mg/dL (74-106)
[2022-08-05 17:35] LABS: Bedside Glucose 175 mg/dL (74-106)
--- NOTE | 2022-08-05 17:41 | CASEMGMT ---
Social Work [facility] states they are able to accept pt however, Pt has used all of her Medicare SNF benefit and pt will need to come under Medicaid benefit. MARVA called pt son Cristian and updated on this. Cristian concerned as pt income will not go to SNF instead to pt. Cristian states he will need to talk to pt and his family regarding this and will follow up with MARVA on Monday. If family agreeable to ECF at [facility], pt will need a Level of Care prior to admission. Plan: [facility], pending family agreement and level of care AD Tovar
--- NOTE | 2022-08-05 18:13 | NURSING ---
This RN has tried to obtain urine sample for cultures throughout the day but have been unsuccessful d/t incontinence and contamination of urine with feces. Will continue to try to get sample
[2022-08-05 21:45] LABS: Bedside Glucose 181 mg/dL (74-106)
[2022-08-06] VITALS (11 sets, daily range): BP systolic 159–195; BP diastolic 61–77; PULSE 79–94; RESP 14–18; TEMP 36.4–37.4; O2SAT 93–100; BMI 29.9
[2022-08-06] MEDS: hydrALAZINE 20 MG/ML Vial 10 MG IV ×2 (02:18→23:50)
[2022-08-06] MEDS: Insulin Lispro 100 UNIT/ML INSULN.PEN SC (06:01)
[2022-08-06 06:25] LABS: Bedside Glucose 230 mg/dL (74-106)
[2022-08-06 07:06] LABS: Anion Gap 10 (5-15); BUN 20 mg/dL (7-18); BUN/Creat Ratio 19.6 RATIO (10-20); Calcium,Total 9.2 mg/dL (8.5-10.1); Chloride 107 mmol/L (98-107); Creatinine, Serum 1.02 mg/dL (0.55-1.02); EST Glomerular Filtration Rate 56 mL/min (>60); Est Glom Filt Rate - Afr Amer 68 mL/min (>60); Estimated Creatinine Clearance 35.41 ml/min; Glucose 233 mg/dL (74-106); Magnesium 1.3 mg/dL (1.6-2.6); Potassium 3.5 mmol/L (3.5-5.1); Sodium Level 140 mmol/L (136-145)
--- NOTE | 2022-08-06 07:30 | PN.HOSP_ITS ---
Reason for Visit Reason for Visit: Diagnoses Encephalopathy, unspecified (08/05/22) Essential (primary) hypertension (08/05/22) Subjective Subjective confused today. does not recall events. Objective Data Objective Data Vital Signs: Vital Signs Temp Pulse Resp BP Pulse Ox O2 Del Method 37.2 C 94 18 161/64 H 97 Room Air 08/06/22 02:20 08/06/22 02:59 08/06/22 02:20 08/06/22 02:59 08/06/22 02:20 08/06/22 02:29 Oxygen Delivery Method Room Air Weight: 72.1 kg Body Mass Index (BMI) 29.9 Intake & Output: Intake and Output for Last 24 Hours 08/04/22 08/05/22 08/06/22 23:59 23:59 23:59 Intake Total 1125 / 1125 Output Total 250 / 250 Balance 875 / 875 Lab / Micro Data Result Diagrams: 08/05/22 06:30 08/06/22 05:50 Labs: Laboratory Results - last 24 hr 08/05/22 06:30: TSH 1.69 08/05/22 06:30: Vitamin B12 299 08/05/22 06:47: POC Glucose 204 H 08/05/22 11:52: POC Glucose 217 H 08/05/22 14:28: POC Glucose 162 H 08/05/22 17:14: POC Glucose 175 H 08/05/22 21:14: POC Glucose 181 H 08/06/22 05:50: Sodium 140, Potassium 3.5, Chloride 107, Carbon Dioxide 23.0, An ion Gap 10, BUN 20 H, Creatinine 1.02, Estim Creat Clear Calc 35.41, Est GFR (MDRD) Af Amer 68, Est GFR (MDRD) Non-Af 56 L, BUN/Creatinine Ratio 19.6, Glucose 233 H, Calcium 9.2, Magnesium 1.3 L 08/06/22 05:59: POC Glucose 230 H Physical Exam Const Constitutional Narrative: awake. anxious. easily distracted. ortiented only to self. HEENT head/scalp atraumatic and moist oral mucous membranes HEENT Narrative: edentulous Eyes PERRL and EOMs intact bilaterally Neck no lymphadenopathy and no JVD Resp normal respiratory effort, no retractions, no use of accessory muscles and clear to auscultation bilaterally Cardio regular rate, regular rhythm, S1 normal heart sound and S2 normal heart sound GI normal to inspection, nondistended, normoactive bowel sounds, soft to palpation, non-tender and non-distended Extremity normal to inspection Neuro moves all extremities, no focal motor deficits and no sensory deficits noted Sensorium / Orientation: awake and oriented to person; Negative for oriented to place or oriented to time Speech: speech normal Psych Mood & Affect: anxious Assessment & Plan Assessment/Plan (1) Acute encephalopathy: PLAN: Etiology unclear. Already improved since patient has been to the ED. Work up so far negative: ABG done; does not showed cause. UA negative. Ammonia negative. head CT w/o acute process. TSH, vitamin B12 and ammonia level ordered. Could be iatrogenic: does take pregabalin. Last received a tramadol rx on 07/11 (#7). 08/05: no improvement since withholding pregabalin and tramadol. DW pt's dtr, Kelly. Notes that there are concerns w/i the family of dementia. Explained we will do a CVA workup. It appears that she has had a CVA in the past based on CT report. I am more concerned about dementia, but will implement CVA work up. Move pt to PCU for CVA work up. Condition has not changed. (2) Hypertensive urgency: PLAN: BP up to 195/77 Continue lisinopril 10 Resume metoprolol 12.5 BID, furosemide 20 (3) Dysphagia: PLAN: Dtr states that pt has been told not to use straw. Has had prior dysphagia issues due to goiter. Concern for pt getting distracted and not swallowing. ST eval PLAN: Plan Recent pneumonia: Procalcitonin negative. Will continue Zithromycin. DM2: insulin-dependent. resume levemir, prandial insulin and continue SSI. DVT prophylaxis Subcutaneous Lovenox ordered. Charges/Coding Visit Charges Inpatient E&M: 67657 Subs Hosp L3
[2022-08-06] MEDS: Glucerna Shake 120 ML LIQUID PO (08:12)
[2022-08-06] MEDS: Ensure Plus High Protein 120 ML LIQUID PO (08:12)
[2022-08-06] MEDS: Clopidogrel Bisulfate 75 MG Tablet PO (08:13)
[2022-08-06] MEDS: Aspirin E.C. 81 MG Tablet PO (08:13)
[2022-08-06] MEDS: Allopurinol 100 MG Tablet PO (08:13)
[2022-08-06] MEDS: Azithromycin 250 MG Tablet 500 MG PO (08:13)
[2022-08-06] MEDS: Lisinopril 10 MG Tablet PO ×2 (08:13→08:14)
[2022-08-06] MEDS: Pantoprazole Sodium 20 MG Tablet PO (08:13)
[2022-08-06] MEDS: Metoprolol Tartrate 25 MG Tablet 12.5 MG PO (08:14)
[2022-08-06] MEDS: Enoxaparin 40 MG/0.4 ML Syringe SC (08:16)
[2022-08-06] MEDS: Furosemide 20 MG Tablet PO (08:20)
[2022-08-06] MEDS: Insulin Lispro 100 UNIT/ML INSULN.PEN 16 UNIT SC (08:21)
[2022-08-06 08:25] LABS: Bedside Glucose 200 mg/dL (74-106)
[2022-08-06 09:14] LABS: Troponin-I HS 98 pg/mL (3.0-54.0)
--- NOTE | 2022-08-06 10:02 | ECHOD_ITS ---
Reason For Study: TIA/CVA Procedure This was a 2D Doppler, Color Flow transthoracic echocardiogram. The study was technically difficult. Exam performed portable in patient room. Left Ventricle Normal LV size. The estimated ejection fraction is 65 %. No evidence for diastolic dysfunction. No regional wall motion abnormalities noted. Right Ventricle Normal RV size. Normal systolic function. Atria Normal left atrium. Normal right atrium. No doppler evidence for ASD. Mitral Valve There is no mitral valve stenosis. No mitral valve insufficiency. Tricuspid Valve There is no tricuspid stenosis. Trivial tricuspid valve insufficiency. Unable to estimate RV systolic pressure due to insufficient tricuspid regurgitant envelope. Aortic Valve Trisinus/trileaflet aortic valve. There is no aortic stenosis. No aortic valve insufficiency. Pulmonic Valve There is no pulmonic valvular stenosis. No pulmonic valve insufficiency. Great Vessels Normal aortic root. Pericardium/Pleural No pericardial effusion. MMode/2D Measurements & Calculations LVIDd: 4.6 cm IVSd: 0.95 cm LA dimension: 3.4 cm LVIDs: 3.4 cm LVPWd: 0.96 cm FS: 27.9 % LAV(MOD-bp): 40.9 ml LA A4 area: 15.1 cm2 LAV(MOD-bp) Indexed: 23.9 ml/m2 LAV(MOD-sp2): 38.3 ml LAV(MOD-sp4): 37.9 ml Time Measurements MV dec time: 0.26 sec Doppler Measurements & Calculations MV E max jp: 68.5 cm/sec Lat Peak E' Jp: 11.7 cm/sec Med Peak E' Jp: 6.8 cm/sec MV A max jp: 113.1 cm/sec E/E' lat: 5.9 E/E' med: 10.1 MV E/A: 0.61 MV V2 max: 134.7 cm/sec MV P1/2t max jp: 91.8 cm/sec Ao V2 max: 155.8 cm/sec MV max P.3 mmHg MV P1/2t: 93.4 msec Ao max P.7 mmHg MV V2 mean: 63.4 cm/sec MV dec slope: 287.9 cm/sec2 Ao V2 mean: 110.8 cm/sec MV mean P.0 mmHg MVA(P1/2t): 2.4 cm2 Ao mean P.4 mmHg MV V2 VTI: 28.5 cm Ao V2 VTI: 32.0 cm AV (velocity ratio): 0.71 LV V1 max: 114.2 cm/sec PA V2 max: 109.0 cm/sec TR max jp: 272.7 cm/sec LV V1 max P.2 mmHg TR max P.7 mmHg LV V1 mean P.6 mmHg LV V1 mean: 75.4 cm/sec LV V1 VTI: 22.8 cm ECHO/Echo Complete Interpretation Summary The estimated ejection fraction is 65 %. No evidence for diastolic dysfunction. Ordering Physician: Yong Calix Performed By: Nathan Ramirez RCS
[2022-08-06] MEDS: LORazepam 2 MG/ML Syringe 1 MG IV ×2 (12:15→13:10)
[2022-08-06] MEDS: Magnesium Sulfate 4gm/100mL 4 GM/100 ML IV.SOLN. IV (14:46)
[2022-08-06] MEDS: 0.9% Saline Lock 10 ML Syringe IV ×2 (14:48→23:55)
[2022-08-06 15:31] LABS: Bedside Glucose 127 mg/dL (74-106)
[2022-08-06 18:35] LABS: Bedside Glucose 167 mg/dL (74-106)
[2022-08-06 21:35] LABS: Bedside Glucose 172 mg/dL (74-106)
[2022-08-07] VITALS (8 sets, daily range): BP systolic 146–186; BP diastolic 62–74; PULSE 73–91; RESP 14–16; TEMP 36.2–37.1; O2SAT 93–97; BMI 29.9
[2022-08-07] MEDS: hydrALAZINE 20 MG/ML Vial 10 MG IV (06:41)
[2022-08-07] MEDS: 0.9% Saline Lock 10 ML Syringe IV (06:42)
[2022-08-07 07:20] LABS: Bedside Glucose 203 mg/dL (74-106)
[2022-08-07 07:54] LABS: Anion Gap 9 (5-15); BUN 28 mg/dL (7-18); BUN/Creat Ratio 24.8 RATIO (10-20); Calcium,Total 9.5 mg/dL (8.5-10.1); Chloride 109 mmol/L (98-107); Cholesterol 127 mg/dL (200); Creatinine, Serum 1.13 mg/dL (0.55-1.02); EST Glomerular Filtration Rate 50 mL/min (>60); Est Glom Filt Rate - Afr Amer 60 mL/min (>60); Estimated Creatinine Clearance 31.96 ml/min; Glucose 209 mg/dL (74-106); High Density Lipoprotein 61 mg/dL; Potassium 3.6 mmol/L (3.5-5.1); Sodium Level 141 mmol/L (136-145); Triglycerides 195 mg/dL; Very Low Density Lipoprotein 39 mg/dL (5-40)
--- NOTE | 2022-08-07 08:24 | PCM.PN.HOSP ---
Reason for Visit Reason for Visit: Diagnoses Encephalopathy, unspecified (08/05/22) Essential (primary) hypertension (08/05/22) Hypertensive urgency (08/05/22) Dysphagia, unspecified (08/05/22) Subjective Subjective Feels well. Too agitated for MRIs yesterday, despite lorazepam. Objective Data Objective Data Vital Signs: Vital Signs Temp Pulse Resp BP Pulse Ox O2 Del Method 37.1 C 77 14 186/65 H 93 Room Air 08/07/22 03:00 08/07/22 06:41 08/07/22 03:00 08/07/22 06:41 08/07/22 03:00 08/07/22 08:00 Oxygen Delivery Method Room Air Weight: 72.1 kg Body Mass Index (BMI) 29.9 Intake & Output: Intake and Output for Last 24 Hours 08/05/22 08/06/22 08/07/22 23:59 23:59 23:59 Intake Total 1125 / 1125 100 / 100 0 / 0 Output Total 250 / 250 Balance 875 / 875 100 / 100 0 / 0 Lab / Micro Data Result Diagrams: 08/05/22 06:30 08/07/22 06:35 Labs: Laboratory Results - last 24 hr 08/06/22 05:50: Troponin I High Sens 98 H 08/06/22 08:05: POC Glucose 200 H 08/06/22 14:54: POC Glucose 127 H 08/06/22 18:09: POC Glucose 167 H 08/06/22 21:04: POC Glucose 172 H 08/07/22 06:33: POC Glucose 203 H 08/07/22 06:35: Sodium 141, Potassium 3.6, Chloride 109 H, Carbon Dioxide 23.0, Anion Gap 9, BUN 28 H, Creatinine 1.13 H, Estim Creat Clear Calc 31.96, Est GFR (MDRD) Af Amer 60, Est GFR (MDRD) Non-Af 50 L, BUN/Creatinine Ratio 24.8 H, Glucose 209 H, Calcium 9.5, Triglycerides 195, Cholesterol 127, LDL Cholesterol 27, VLDL Cholesterol 39, HDL Cholesterol 61 Micro: Microbiology 08/04/22 20:04 Urine, Clean Catch Urine Culture - Preliminary Radiography Diagnostic Testing: Radiology Impression Echocardiogram 08/06/22 10:02 Interpretation Summary The estimated ejection fraction is 65 %. No evidence for diastolic dysfunction. Ordering Physician: Yong Calix Performed By: Nathan Ramirez RCS Physical Exam Const alert and no apparent distress HEENT head/scalp atraumatic and moist oral mucous membranes Resp normal respiratory effort, no retractions, no use of accessory muscles and clear to auscultation bilaterally Cardio regular rate, regular rhythm, S1 normal heart sound and S2 normal heart sound GI normal to inspection, nondistended, normoactive bowel sounds, soft to palpation, non-tender and non-distended Extremity normal to inspection Assessment & Plan Assessment/Plan (1) Acute encephalopathy: PLAN: Improved today Etiology unclear. Though I suspect pt has underlying dementia which was exacerbated by pregabalin and tramadol (both have been held) Work up so far negative: ABG done; does not showed cause. UA negative. Ammonia negative. head CT w/o acute process. TSH, vitamin B12 and ammonia level ordered. 08/06: no improvement since withholding pregabalin and tramadol. DW pt's dtr, Kelly. Notes that there are concerns w/i the family of dementia. Explained we will do a CVA workup. It appears that she has had a CVA in the past based on CT report. I am more concerned about dementia, but will implement CVA work up. Move pt to PCU for CVA work up. Condition has not changed. DW dtr. Explained that will attempt a CVA work up with MRI. Unfortunaltely pt was unable to tolerate MRI despite lorazepam. Will not reattempt at this time. (2) Hypertensive urgency: PLAN: Improved Continue lisinopril 10 Resume metoprolol 12.5 BID, furosemide 20 (3) Dysphagia: PLAN: Limited by mental status Dtr states that pt has been told not to use straw. Has had prior dysphagia issues due to goiter. Concern for pt getting distracted and not swallowing. ST eval: recommends: meds in applesauce, no straws, supervision. PLAN: Plan Recent pneumonia: Procalcitonin negative. Will continue Zithromycin. DM2: insulin-dependent. resume levemir, prandial insulin and continue SSI. DVT prophylaxis Subcutaneous Lovenox ordered. Disposition: anticipate pt will need SNF. Work up has been either completed or not further attempted. Charges/Coding Visit Charges Inpatient E&M: 55321 Subs Hosp L2
[2022-08-07] MEDS: Metoprolol Tartrate 25 MG Tablet 12.5 MG PO ×2 (10:48→21:57)
[2022-08-07] MEDS: Aspirin E.C. 81 MG Tablet PO (10:48)
[2022-08-07] MEDS: Furosemide 20 MG Tablet PO (10:48)
[2022-08-07] MEDS: Glucerna Shake 120 ML LIQUID PO (10:48)
[2022-08-07] MEDS: Enoxaparin 40 MG/0.4 ML Syringe SC (10:49)
[2022-08-07] MEDS: Clopidogrel Bisulfate 75 MG Tablet PO (10:49)
[2022-08-07] MEDS: Pantoprazole Sodium 20 MG Tablet PO (10:49)
[2022-08-07] MEDS: Azithromycin 250 MG Tablet 500 MG PO (10:50)
[2022-08-07] MEDS: Sucralfate 1 GM Tablet PO ×2 (10:51→16:26)
[2022-08-07] MEDS: Insulin Lispro 100 UNIT/ML INSULN.PEN 16 UNIT SC (11:11)
[2022-08-07] MEDS: Insulin Lispro 100 UNIT/ML INSULN.PEN SC ×2 (11:12→21:36)
[2022-08-07 11:55] LABS: Bedside Glucose 300 mg/dL (74-106)
[2022-08-07] MEDS: Ferrous Sulfate 325 MG Tablet PO (12:56)
[2022-08-07] MEDS: Allopurinol 100 MG Tablet PO (12:56)
[2022-08-07 16:55] LABS: Bedside Glucose 79 mg/dL (74-106)
[2022-08-07] MEDS: Acetaminophen 325 MG Tablet 650 MG PO (17:55)
[2022-08-07] MEDS: Insulin Glargine-YFGN 100 UNIT/ML Pen 40 UNIT SC (21:51)
[2022-08-07] MEDS: Atorvastatin Calcium 40 MG Tablet PO (21:55)
[2022-08-07] MEDS: Sertraline 50 MG Tablet PO (21:56)
[2022-08-07 23:06] LABS: Bedside Glucose 157 mg/dL (74-106)
[2022-08-08] VITALS (8 sets, daily range): BP systolic 142–163; BP diastolic 53–83; PULSE 75–83; RESP 16–18; TEMP 36.6–36.9; O2SAT 93–98; BMI 29.9
[2022-08-08] MEDS: Acetaminophen 325 MG Tablet 650 MG PO ×3 (03:12→21:27)
[2022-08-08] MEDS: Sucralfate 1 GM Tablet PO ×3 (05:48→15:30)
[2022-08-08] MEDS: Insulin Lispro 100 UNIT/ML INSULN.PEN SC ×2 (08:27→21:21)
[2022-08-08] MEDS: Insulin Lispro 100 UNIT/ML INSULN.PEN 16 UNIT SC (08:30)
[2022-08-08] MEDS: Glucerna Shake 120 ML LIQUID PO (08:31)
[2022-08-08] MEDS: Ensure Plus High Protein 120 ML LIQUID PO (08:32)
[2022-08-08 08:45] LABS: Bedside Glucose 154 mg/dL (74-106)
[2022-08-08] MEDS: Pantoprazole Sodium 20 MG Tablet PO (08:48)
[2022-08-08] MEDS: Metoprolol Tartrate 25 MG Tablet 12.5 MG PO ×2 (08:48→21:20)
[2022-08-08] MEDS: Aspirin E.C. 81 MG Tablet PO (08:48)
[2022-08-08] MEDS: Enoxaparin 40 MG/0.4 ML Syringe SC (08:49)
[2022-08-08] MEDS: Lisinopril 10 MG Tablet PO (08:49)
[2022-08-08] MEDS: Furosemide 20 MG Tablet PO (08:49)
[2022-08-08] MEDS: Clopidogrel Bisulfate 75 MG Tablet PO (08:49)
[2022-08-08] MEDS: Azithromycin 250 MG Tablet 500 MG PO (08:49)
[2022-08-08 09:28] LABS: Absolute Lymphocyte Count 0.97 X10^3/uL (0.83-4.51); Absolute Neutrophil Count 6.1 X10^3/uL (2.0-7.7); Basophil# 0.01 X10^3/uL; Basophil% 0.1 % (0-1); Eosinophil# 0.09 X10^3/uL; Eosinophils% 1.2 % (0-5); Hematocrit 45.2 % (37-47); Hemoglobin 14.5 g/dL (12.0-15.0); Lymphocyte # 0.97 X10^3/ul (0.83-4.51); Mean Corp Hgb Conc 32.1 g/dL (32-36); Mean Corpuscular Hgb 28.8 pg (27.0-32.0); Mean Corpuscular Volume 89.9 fL (81-99); Mean Platelet Vol. 11.1 fl (6.2-12.0); Monocyte# 0.24 X10^3/uL; Monocyte% 3.2 % (0-10); NRBC Flagged by Analyzer 0 % (0-5); Neutrophil # 6.11 X10^3/uL (2.7-7.7); Neutrophil % 82.2 % (47-70); Platelet Count 235 K/mm3 (150-450); RBC Distribution Width CV 14.7 % (11.6-14.6); RBC Distribution Width SD 48.1 fl (35.1-43.9); Red Blood Count 5.03 M/mm3 (4.2-5.4); White Blood Count 7.4 K/mm3 (4.4-11.0)
[2022-08-08 09:53] LABS: Anion Gap 8 (5-15); BUN 26 mg/dL (7-18); BUN/Creat Ratio 22.2 RATIO (10-20); Calcium,Total 10.4 mg/dL (8.5-10.1); Chloride 106 mmol/L (98-107); Creatinine, Serum 1.17 mg/dL (0.55-1.02); EST Glomerular Filtration Rate 48 mL/min (>60); Est Glom Filt Rate - Afr Amer 58 mL/min (>60); Estimated Creatinine Clearance 30.87 ml/min; Glucose 160 mg/dL (74-106); Potassium 2.9 mmol/L (3.5-5.1); Sodium Level 137 mmol/L (136-145)
[2022-08-08] MEDS: Allopurinol 100 MG Tablet PO (10:41)
[2022-08-08 11:55] LABS: Bedside Glucose 95 mg/dL (74-106)
--- NOTE | 2022-08-08 12:18 | CASEMGMT ---
Social Work Note SW [facility] and explained patient is not medically ready for D/C today. Frida Robledo MSW, HONG
[2022-08-08] MEDS: Ferrous Sulfate 325 MG Tablet PO (12:34)
--- NOTE | 2022-08-08 13:55 | PN_ITS ---
Subjective Subjective Patient seen and examined. She was quite frail. She had no active complaints and had an uneventful night. She denies any fever, chills, shortness of breath, palpitations, dizziness, nausea or vomiting. Review of systems otherwise negative. She has remained hemodynamically stable. Objective Data Objective Data Vital Signs: Vital Signs Temp Pulse Resp BP Pulse Ox O2 Del Method 98.5 F 83 18 163/83 H 93 Room Air 08/08/22 08:22 08/08/22 08:48 08/08/22 08:22 08/08/22 08:48 08/08/22 12:13 08/08/22 08:58 Oxygen Delivery Method Room Air Weight: 158 lb 15.253 oz Body Mass Index (BMI) 29.9 Intake & Output: Intake and Output for Last 24 Hours 08/06/22 08/07/22 08/08/22 23:59 23:59 23:59 Intake Total 100 / 100 600 / 600 Output Total 300 / 300 Balance 100 / 100 600 / 600 -300 / -300 Lab / Micro Data Result Diagrams: 08/08/22 09:15 08/08/22 09:15 Labs: Laboratory Results - last 24 hr 08/07/22 16:27: POC Glucose 79 08/07/22 21:36: POC Glucose 157 H 08/08/22 08:20: POC Glucose 154 H 08/08/22 09:15: WBC 7.4, RBC 5.03, Hgb 14.5, Hct 45.2, MCV 89.9, MCH 28.8, MCHC 32.1, RDW Std Deviation 48.1 H, RDW Coeff of Kenneth 14.7 H, Plt Count 235, MPV 11.1, Immature Gran % (Auto) 0.300, Neut % (Auto) 82.2 H, Lymph % (Auto) 13.0 L, Stewart % (Auto) 3.2, Eos % (Auto) 1.2, Baso % (Auto) 0.1, Absolute Neuts (auto) 6.1, Absolute Lymphs (auto) 0.97, Nucleated RBC % 0 08/08/22 09:15: Sodium 137, Potassium 2.9 L, Chloride 106, Carbon Dioxide 23.0, Anion Gap 8, BUN 26 H, Creatinine 1.17 H, Estim Creat Clear Calc 30.87, Est GFR (MDRD) Af Amer 58 L, Est GFR (MDRD) Non-Af 48 L, BUN/Creatinine Ratio 22.2 H, Glucose 160 H, Calcium 10.4 H 08/08/22 11:29: POC Glucose 95 Micro: Microbiology 08/04/22 20:04 Urine, Clean Catch Urine Culture - Final Mixed Gram Pos & Gram Neg Org Physical Exam Const alert, oriented x3 and no apparent distress Constitutional Narrative: frail General Appearance: cooperative HEENT moist oral mucous membranes Neck supple and no JVD Lymph Lymphatic: no lymphadenopathy noted and no lymphedema noted Resp normal respiratory effort, normal air movement and clear to auscultation bilaterally Cardio regular rate, regular rhythm, S1 normal heart sound, S2 normal heart sound and no murmurs GI normal to inspection, nondistended, normoactive bowel sounds, soft to palpation, non-tender and non-distended Extremity normal capillary refill, no clubbing, cyanosis or edema and no calf tenderness Skin General Skin Exam: no breakdown Neuro CN's II-XII intact bilaterally and no focal motor deficits Psych thought process normal Assessment & Plan Assessment/Plan (1) Hypertensive urgency: (2) Acute encephalopathy: PLAN: Plan #Acute encephalopathy * resolved. Now more alert and communicative * has underlying dementia which is likely contributing. * CDT of the brain showed no acute intracranial pathology * vitamin B12, TSH and ammonia level WNL * urinalysis showed no evidence of infection * PT/OT on board * fall precautions * pregabalin and tramadol on hold * MRI of brain ordered to rule out stroke but she couldnt tolerate it. * #Hypertension * Admitted with hypertensive urgency which has resolved. On lisinopril 10 mg daily, metoprolol 12.5 mg daily and furosemide 20 mg daily. #Hypokalemia: K is 2.9. Will replace aggressively and trend. Check magnesium level #Dysphagia: Speech therapy on board. Modified diet as per speech therapy #Type 2 diabetes mellitus: On Levemir and insulin sliding scale. Accu-Cheks ACHS. DVT prophylaxis: Lovenox Disposition: Awaiting placement. Charges/Coding Visit Charges Inpatient E&M: 47424 Subs Hosp L2
[2022-08-08 14:44] LABS: Magnesium 1.7 mg/dL (1.6-2.6)
[2022-08-08] MEDS: Potassium Chloride 10mEq/100mL 10 MEQ/100 ML IV.SOLN. 100 MEQ IV BOLUS ×3 (15:29→19:31)
--- NOTE | 2022-08-08 16:02 | CASEMGMT ---
Pt's son Cristian called regarding patient SNF and insurance questions due to patient being out of Medicare coverage. SW will consult with AM outreach and education social worker regarding current status and return call to son, . Angela Layne RATING SPECIALIST, SENIOR COST ESTIMATOR
[2022-08-08] MEDS: Potassium Chloride 10mEq/100mL 10 MEQ/100 ML IV.SOLN. 75 MEQ IV BOLUS (16:34)
[2022-08-08 17:10] LABS: Bedside Glucose 118 mg/dL (74-106)
[2022-08-08] MEDS: Sertraline 50 MG Tablet PO (21:20)
[2022-08-08] MEDS: Atorvastatin Calcium 40 MG Tablet PO (21:20)
[2022-08-08] MEDS: Insulin Glargine-YFGN 100 UNIT/ML Pen 40 UNIT SC (21:23)
[2022-08-08] MEDS: MELATONIN 3 MG TABLET PO (21:27)
[2022-08-09] VITALS (8 sets, daily range): BP systolic 137–159; BP diastolic 56–71; PULSE 58–79; RESP 18; TEMP 36.8–37; O2SAT 93–100; BMI 29.9
[2022-08-09 01:16] LABS: Bedside Glucose 251 mg/dL (74-106)
[2022-08-09 06:18] LABS: Absolute Lymphocyte Count 1.14 X10^3/uL (0.83-4.51); Absolute Neutrophil Count 3.7 X10^3/uL (2.0-7.7); Basophil# 0.02 X10^3/uL; Basophil% 0.4 % (0-1); Eosinophil# 0.14 X10^3/uL; Eosinophils% 2.6 % (0-5); Hematocrit 38.9 % (37-47); Hemoglobin 12.6 g/dL (12.0-15.0); Lymphocyte # 1.14 X10^3/ul (0.83-4.51); Lymphocyte % 21.2 % (19-41); Mean Corp Hgb Conc 32.4 g/dL (32-36); Mean Corpuscular Volume 89.4 fL (81-99); Mean Platelet Vol. 11.6 fl (6.2-12.0); Monocyte# 0.42 X10^3/uL; Monocyte% 7.8 % (0-10); NRBC Flagged by Analyzer 0 % (0-5); Neutrophil # 3.65 X10^3/uL (2.7-7.7); Neutrophil % 67.6 % (47-70); Platelet Count 174 K/mm3 (150-450); RBC Distribution Width CV 14.5 % (11.6-14.6); RBC Distribution Width SD 47.2 fl (35.1-43.9); Red Blood Count 4.35 M/mm3 (4.2-5.4); White Blood Count 5.4 K/mm3 (4.4-11.0)
[2022-08-09] MEDS: Sucralfate 1 GM Tablet PO ×3 (06:24→15:56)
[2022-08-09] MEDS: Insulin Lispro 100 UNIT/ML INSULN.PEN SC ×3 (06:25→23:09)
[2022-08-09 06:55] LABS: Bedside Glucose 235 mg/dL (74-106)
[2022-08-09 07:07] LABS: Anion Gap 7 (5-15); BUN 23 mg/dL (7-18); BUN/Creat Ratio 21.5 RATIO (10-20); Calcium,Total 9.1 mg/dL (8.5-10.1); Chloride 104 mmol/L (98-107); Creatinine, Serum 1.07 mg/dL (0.55-1.02); EST Glomerular Filtration Rate 53 mL/min (>60); Est Glom Filt Rate - Afr Amer 64 mL/min (>60); Estimated Creatinine Clearance 33.75 ml/min; Glucose 235 mg/dL (74-106); Potassium 3.1 mmol/L (3.5-5.1); Sodium Level 135 mmol/L (136-145)
[2022-08-09] MEDS: Clopidogrel Bisulfate 75 MG Tablet PO (09:05)
[2022-08-09] MEDS: Enoxaparin 40 MG/0.4 ML Syringe SC (09:05)
[2022-08-09] MEDS: Furosemide 20 MG Tablet PO (09:05)
[2022-08-09] MEDS: Azithromycin 250 MG Tablet 500 MG PO (09:05)
[2022-08-09] MEDS: Metoprolol Tartrate 25 MG Tablet 12.5 MG PO ×2 (09:05→23:12)
[2022-08-09] MEDS: Aspirin E.C. 81 MG Tablet PO (09:06)
[2022-08-09] MEDS: Allopurinol 100 MG Tablet PO (09:06)
[2022-08-09] MEDS: Lisinopril 10 MG Tablet PO (09:06)
[2022-08-09] MEDS: Pantoprazole Sodium 20 MG Tablet PO (09:06)
[2022-08-09] MEDS: Insulin Lispro 100 UNIT/ML INSULN.PEN 16 UNIT SC ×2 (09:06→12:30)
[2022-08-09] MEDS: Potassium Chloride Oral Tablet 20 MEQ 40 MEQ PO (09:06)
--- NOTE | 2022-08-09 10:24 | CASEMGMT ---
MARVA called patient's son Cristian to answer his questions. MARVA received voice mail and the mailbox was full. Cheri PITTS
--- NOTE | 2022-08-09 10:40 | CASEMGMT ---
MARVA received a return call from patient's son. SW answered his questions. MARVA confirmed the plan is [facility] [employer]eballos on patient's Medicaid. MARVA let Hay Ceballos know the plan is for patient to come on her Medicaid. Cheri PITTS
[2022-08-09 12:10] LABS: Bedside Glucose 201 mg/dL (74-106)
[2022-08-09] MEDS: Ferrous Sulfate 325 MG Tablet PO (12:29)
--- NOTE | 2022-08-09 12:41 | PN_ITS ---
Subjective Subjective Patient seen and examined. She had no active complaints and had an uneventful night. Review of systems is otherwise negative. She has remained hemodynamically stable. Objective Data Objective Data Vital Signs: Vital Signs Temp Pulse Resp BP Pulse Ox O2 Del Method 98.4 F 79 18 137/71 H 100 Room Air 08/09/22 11:58 08/09/22 11:58 08/09/22 11:58 08/09/22 11:58 08/09/22 11:58 08/09/22 11:58 Oxygen Delivery Method Room Air Weight: 158 lb 15.253 oz Body Mass Index (BMI) 29.9 Intake & Output: Intake and Output for Last 24 Hours 08/07/22 08/08/22 08/09/22 23:59 23:59 23:59 Intake Total 600 / 600 400.00 / 400.00 Output Total 600 / 600 Balance 600 / 600 -200.00 / -200.00 Lab / Micro Data Result Diagrams: 08/09/22 05:32 08/09/22 05:32 Labs: Laboratory Results - last 24 hr 08/08/22 09:15: Magnesium 1.7 08/08/22 16:33: POC Glucose 118 H 08/08/22 21:18: POC Glucose 251 H 08/09/22 05:32: WBC 5.4, RBC 4.35, Hgb 12.6, Hct 38.9, MCV 89.4, MCH 29.0, MCHC 32.4, RDW Std Deviation 47.2 H, RDW Coeff of Kenneth 14.5, Plt Count 174, MPV 11.6, Immature Gran % (Auto) 0.400, Neut % (Auto) 67.6, Lymph % (Auto) 21.2, [place] % (Auto) 7.8, Eos % (Auto) 2.6, Baso % (Auto) 0.4, Absolute Neuts (auto) 3.7, Absolute Lymphs (auto) 1.14, Nucleated RBC % 0 08/09/22 05:32: Sodium 135 L, Potassium 3.1 L, Chloride 104, Carbon Dioxide 24 .0, Anion Gap 7, BUN 23 H, Creatinine 1.07 H, Estim Creat Clear Calc 33.75, Est GFR (MDRD) Af Amer 64, Est GFR (MDRD) Non-Af 53 L, BUN/Creatinine Ratio 21.5 H, Glucose 235 H, Calcium 9.1 08/09/22 06:23: POC Glucose 235 H 08/09/22 11:47: POC Glucose 201 H Micro: Microbiology 08/04/22 20:04 Urine, Clean Catch Urine Culture - Final Mixed Gram Pos & Gram Neg Org Physical Exam Const alert, oriented x3 and no apparent distress Constitutional Narrative: frail General Appearance: cooperative HEENT normocephalic, head/scalp atraumatic and moist oral mucous membranes Eyes PERRL and EOMs intact bilaterally Neck no lymphadenopathy, supple and no JVD Lymph Lymphatic: no lymphadenopathy noted and no lymphedema noted Resp normal respiratory effort, normal air movement, no retractions, no use of accessory muscles and clear to auscultation bilaterally Cardio regular rate, regular rhythm, S1 normal heart sound, S2 normal heart sound and no murmurs GI normal to inspection, nondistended, normoactive bowel sounds, soft to palpation, non-tender and non-distended Extremity normal to inspection, normal capillary refill, no clubbing, cyanosis or edema and no calf tenderness Skin General Skin Exam: no breakdown Neuro CN's II-XII intact bilaterally, moves all extremities, no focal motor deficits and no sensory deficits noted Sensorium / Orientation: awake and oriented to person; Negative for oriented to place or oriented to time Speech: speech normal Psych thought process normal and cooperative Appearance: appropriate Assessment & Plan Assessment/Plan (1) Hypertensive urgency: (2) Acute encephalopathy: PLAN: Plan #Acute encephalopathy * resolved. Now more alert and communicative * has underlying dementia which is likely contributing. * CDT of the brain showed no acute intracranial pathology * vitamin B12, TSH and ammonia level WNL * urinalysis showed no evidence of infection * PT/OT on board * fall precautions * pregabalin and tramadol on hold * MRI of brain ordered to rule out stroke but she couldnt tolerate it. * #Hypertension * Admitted with hypertensive urgency which has resolved. On lisinopril 10 mg daily, metoprolol 12.5 mg daily and furosemide 20 mg daily. #Hypokalemia: K is 3.1 today. Will replace and trend. #Dysphagia: Speech therapy on board. Modified diet as per speech therapy #Type 2 diabetes mellitus: On Levemir and insulin sliding scale. Accu-Cheks ACHS. DVT prophylaxis: Lovenox Disposition: Awaiting placement. Charges/Coding Visit Charges Inpatient E&M: 10032 Subs Hosp L2
[2022-08-09] MEDS: Acetaminophen 325 MG Tablet 650 MG PO ×2 (17:04→23:24)
[2022-08-09 17:30] LABS: Bedside Glucose 119 mg/dL (74-106)
[2022-08-09] MEDS: Insulin Glargine-YFGN 100 UNIT/ML Pen 40 UNIT SC (23:10)
[2022-08-09] MEDS: Atorvastatin Calcium 40 MG Tablet PO (23:11)
[2022-08-09] MEDS: Sertraline 50 MG Tablet PO (23:11)
[2022-08-09] MEDS: MELATONIN 3 MG TABLET PO (23:24)
[2022-08-09 23:36] LABS: Bedside Glucose 190 mg/dL (74-106)
[2022-08-10 05:15] LABS: Absolute Lymphocyte Count 1.58 X10^3/uL (0.83-4.51); Absolute Neutrophil Count 3.6 X10^3/uL (2.0-7.7); Basophil# 0.02 X10^3/uL; Basophil% 0.3 % (0-1); Eosinophil# 0.13 X10^3/uL; Eosinophils% 2.3 % (0-5); Hematocrit 39.4 % (37-47); Hemoglobin 12.4 g/dL (12.0-15.0); Lymphocyte # 1.58 X10^3/ul (0.83-4.51); Lymphocyte % 27.6 % (19-41); Mean Corp Hgb Conc 31.5 g/dL (32-36); Mean Corpuscular Hgb 28.5 pg (27.0-32.0); Mean Corpuscular Volume 90.6 fL (81-99); Mean Platelet Vol. 11.2 fl (6.2-12.0); NRBC Flagged by Analyzer 0 % (0-5); Neutrophil # 3.57 X10^3/uL (2.7-7.7); Neutrophil % 62.5 % (47-70); Platelet Count 199 K/mm3 (150-450); RBC Distribution Width CV 14.4 % (11.6-14.6); RBC Distribution Width SD 47.8 fl (35.1-43.9); Red Blood Count 4.35 M/mm3 (4.2-5.4); White Blood Count 5.7 K/mm3 (4.4-11.0)
[2022-08-10 05:40] LABS: Anion Gap 7 (5-15); BUN 24 mg/dL (7-18); BUN/Creat Ratio 20.9 RATIO (10-20); Calcium,Total 9.4 mg/dL (8.5-10.1); Chloride 106 mmol/L (98-107); Creatinine, Serum 1.15 mg/dL (0.55-1.02); EST Glomerular Filtration Rate 49 mL/min (>60); Est Glom Filt Rate - Afr Amer 59 mL/min (>60); Glucose 123 mg/dL (74-106); Potassium 3.2 mmol/L (3.5-5.1); Sodium Level 137 mmol/L (136-145)
[2022-08-10 06:45] VITALS: BP 148/66; PULSE 69; RESP 20; TEMP 36.7; O2SAT 98
[2022-08-10] MEDS: Sucralfate 1 GM Tablet PO ×2 (06:55→11:46)
[2022-08-10 08:27] VITALS: BP 148/66; PULSE 69
[2022-08-10] MEDS: Metoprolol Tartrate 25 MG Tablet 12.5 MG PO (08:27)
[2022-08-10] MEDS: Allopurinol 100 MG Tablet PO (08:27)
[2022-08-10] MEDS: Pantoprazole Sodium 20 MG Tablet PO (08:27)
[2022-08-10] MEDS: Azithromycin 250 MG Tablet 500 MG PO (08:28)
[2022-08-10] MEDS: Potassium Chloride Oral Tablet 20 MEQ 40 MEQ PO (08:28)
[2022-08-10] MEDS: Aspirin E.C. 81 MG Tablet PO (08:28)
[2022-08-10] MEDS: Furosemide 20 MG Tablet PO (08:28)
[2022-08-10] MEDS: Enoxaparin 40 MG/0.4 ML Syringe SC (08:28)
[2022-08-10] MEDS: Insulin Lispro 100 UNIT/ML INSULN.PEN SC ×2 (08:28→11:47)
[2022-08-10] MEDS: Clopidogrel Bisulfate 75 MG Tablet PO (08:32)
[2022-08-10] MEDS: Lisinopril 10 MG Tablet PO (08:32)
[2022-08-10 08:56] LABS: Bedside Glucose 174 mg/dL (74-106)
[2022-08-10 11:26] LABS: Bedside Glucose 186 mg/dL (74-106)
[2022-08-10 11:45] VITALS: BP 141/67; PULSE 66; RESP 18; TEMP 36.3; O2SAT 98
[2022-08-10] MEDS: Ferrous Sulfate 325 MG Tablet PO (11:46)
[2022-08-10] MEDS: Insulin Lispro 100 UNIT/ML INSULN.PEN 16 UNIT SC (11:47)
[2022-08-10] MEDS: Acetaminophen 325 MG Tablet 650 MG PO (11:50)
--- NOTE | 2022-08-10 11:53 | TREXTCAR_ITS ---
Diet Diet Order/Speech Therapy: 08/07/22 09:50 Diet: Regular - General Food consistency:: Easy to Chew Liquid Consistency:: Regular/Thin Type of Dietary Supplement:: fort pudding or MC tid Is pt able to select menu?: No Diet Comments: Meds whole in , no straws, distant supervision/ fort pudding or MC tid Routine Orders/Code Status Enema Type: Fleetz Enema Frequency: Daily PRN Suppository Type: Dulcolax 10mg Suppository Frequency: Daily PRN O2 Frequency: PRN Keep PO Greater than or Equal to (%): 90 Therapies Weight Bearing: Weight bearing as tolerated Physical Therapy: Eval and Treat Occupational Therapy: Eval and Treat Problem/Diagnosis (1) Hypertensive urgency: Status: Acute Code(s): I16.0 - Hypertensive urgency (2) Acute encephalopathy: Status: Acute Code(s): G93.40 - Encephalopathy, unspecified Plan #Acute encephalopathy * resolved. Now more alert and communicative * has underlying dementia which is likely contributing. * CDT of the brain showed no acute intracranial pathology * vitamin B12, TSH and ammonia level WNL * urinalysis showed no evidence of infection * PT/OT on board * fall precautions * pregabalin and tramadol on hold * MRI of brain ordered to rule out stroke but she couldnt tolerate it. * #Hypertension * Admitted with hypertensive urgency which has resolved. On lisinopril 10 mg daily, metoprolol 12.5 mg daily and furosemide 20 mg daily. #Hypokalemia: K is 3.1 today. Will replace and trend. #Dysphagia: Speech therapy on board. Modified diet as per speech therapy #Type 2 diabetes mellitus: On Levemir and insulin sliding scale. Accu-Cheks ACHS. DVT prophylaxis: Lovenox Disposition: Awaiting placement. Allergies/Procedures Done in Hospital Allergies duloxetine [From Cymbalta] Adverse Reaction (Verified 08/04/22 18:06) Rash linagliptin [From Tradjenta] Adverse Reaction (Verified 08/04/22 18:06) Hives oxycodone [From OxyContin] Adverse Reaction (Verified 08/04/22 18:06) Rash Procedures: None Type of Care/Length of Stay Estimated LOS: Convalescent Care Less Than 30 days Type of Care Needed: Intermediate Rehab Potential: Good Prognosis: Good Additional Orders/Day of Discharge Day of Discharge: 08/10/22 Dietary and Speech Recommendations Dietitian Recommendations/Changes: Discontinue ONS w/ medpass and provide fortified pudding or magic cup w/ meals instead d/t pt refusals. Continue liberal regular diet - consistency per ACCESS LEAD - d/t signs and symptoms of malnutrition. Discharge Plan Admission Admit Date/Time: 08/05/22 00:11 Primary Reason for Your Visit: acute encephalopathy Attending Provider: Archana Umana Primary Care Provider: Akanksha Bolton Consulting Providers: Emeka Hays ; Yong Calix Discharge Orders/Prescriptions Prescriptions: Continued allopurinol 100 mg tablet 1 tab PO DAILY lisinopril 10 mg tablet 10 mg PO DAILY sertraline 50 mg tablet 50 mg PO QHS ferrous sulfate 325 MG tablet 325 mg PO DAILY atorvastatin 40 MG tablet 40 mg PO QHS famotidine 40 MG tablet 20 mg PO BID pregabalin 300 mg capsule 300 mg PO BID Levemir FlexTouch U-100 Insuln 100 unit/mL (3 mL) insulin pen 40 unit SUBCUT QHS docusate sodium 50 mg Capsule 50 mg PO DAILY clopidogrel 75 mg tablet 75 mg DAILY hydrocodone-acetaminophen 1 TABLET tablet 1 tab PO Q6H PRN PRN (Reason: Pain) 3 Days Qty: 10 0RF sucralfate 1 gram tablet 1 g PO TID Label Comments: TAKE 1 TABLET BY MOUTH THREE TIMES DAILY BEFORE MEAL(S) aspirin 81 mg Tablet,Delayed Release (Dr/Ec) 40.5 mg PO BID Fiasp FlexTouch U-100 Insulin 100 unit/mL (3 mL) insulin pen 16 unit SUBCUT BID Fiasp FlexTouch U-100 Insulin 100 unit/mL (3 mL) insulin pen 18 unit SUBCUT DINNER pantoprazole 40 mg tablet,delayed release (DR/EC) 40 mg PO DAILY Ensure Plus High Protein 0.08 gram-1.5 kcal/mL liquid 120 ml PO BID furosemide 40 mg tablet 25 mg DAILY metoprolol tartrate 25 mg tablet 12.5 mg BID cholecalciferol (vitamin D3) 125 mcg (5,000 unit) tablet 125 mcg Label Comments: TAKE 1 TABLET BY MOUTH ONCE DAILY omeprazole 20 mg Capsule,Delayed Release(Dr/Ec) 20 mg PO DAILY tramadol 50 mg tablet 50 mg PO Q6H PRN (Reason: pain) Qty: 14 0RF Referrals / Follow Up: Akanksha Bolton MD [Primary Care Provider] - Within 1 Week Disposition Disposition (needs filled in before D/C Order can be placed): [facility]
--- NOTE | 2022-08-10 12:42 | CASEMGMT ---
All necessary information has been sent to [facility] to obtain a level of care. Await results. Cheri Holt MSW HONG
--- NOTE | 2022-08-10 13:35 | CASEMGMT ---
MARVA sent orders and COVID test to [facility]. MARVA let [facility] know that is waiting on patient's level of care. Cehri Holt GENERAL ADMINISTRATOR GAS DISTRIBUTION PLANT OPERATOR
--- NOTE | 2022-08-10 14:37 | CASEMGMT ---
MARVA received the level of care from [facility]. MARVA called [facility] and arranged for patient to get picked up at 3p via wheelchair. MARVA called patient's son Cristian and let him know. MARVA sent level of care and fern picker time to [facility] via [facility]. [id number] was completed on . MARVA Miller notified patient of her fern picker time. Plan: d/c to [facility] under intermediate level of care on a convalescent stay. Physicians will transport patient via wheelchair van. Cheri Holt FISH SMOKER HONG
--- NOTE | 2022-08-10 17:09 | PCM.DC.SUM ---
Providers Date of Admission: 08/05/22 Date of Discharge: 08/10/22 Primary Care Physician: Dr. Akanksha Bolton MD Reason For Visit: ACUTE ENCEPHALOPATHY Diagnosis Discharge Diagnosis (1) Hypertensive urgency: Status: Acute Code(s): I16.0 - Hypertensive urgency (2) Acute encephalopathy: Status: Acute Code(s): G93.40 - Encephalopathy, unspecified Plan #Acute encephalopathy resolved. Now more alert and communicative has underlying dementia which is likely contributing. CDT of the brain showed no acute intracranial pathology vitamin B12, TSH and ammonia level WNL urinalysis showed no evidence of infection PT/OT on board fall precautions pregabalin and tramadol on hold MRI of brain ordered to rule out stroke but she couldnt tolerate it. #Hypertension Admitted with hypertensive urgency which has resolved. On lisinopril 10 mg daily, metoprolol 12.5 mg daily and furosemide 20 mg daily. #Hypokalemia: K is 3.1 today. Will replace and trend. #Dysphagia: Speech therapy on board. Modified diet as per speech therapy #Type 2 diabetes mellitus: On Levemir and insulin sliding scale. Accu-Cheks ACHS. DVT prophylaxis: Lovenox Disposition: Awaiting placement. Medications at Discharge Home Medications allopurinol 100 mg tablet 1 tab PO DAILY gout 08/15/17 ferrous sulfate 325 mg (65 mg iron) tablet 325 mg PO DAILY supplement 12/13/17 lisinopril 10 mg tablet 10 mg PO DAILY blood pressure 06/16/20 sertraline 50 mg tablet 50 mg PO QHS depression 06/16/20 atorvastatin 40 mg tablet 40 mg PO QHS cholesterol 07/15/20 famotidine 40 mg tablet 20 mg PO BID acid reflux 07/15/20 pregabalin 300 mg capsule 300 mg PO BID nerve pain 03/02/21 insulin detemir U-100 100 unit/mL (3 mL) subcutaneous pen (Levemir FlexTouch U-100 Insulin) 40 unit subcut QHS diabetes 04/12/21 docusate sodium 50 mg capsule 50 mg PO DAILY CONSTIPATION 01/16/22 clopidogrel 75 mg tablet 75 mg DAILY BLOOD THINNER 02/16/22 tramadol 50 mg tablet 50 mg PO Q6H PRN pain #14 tabs 02/24/22 hydrocodone-acetaminophen 5-325mg 5mg-325mg 1 tab PO Q6H PRN PRN Pain 3 days #10 TABLETS 03/14/22 aspirin 81 mg tablet,delayed release 40.5 mg PO BID heart health 03/16/22 food supplemt, lactose-reduced 0.08 gram-1.5 kcal/mL oral liquid (Ensure Plus High Protein) 120 ml PO BID SUPPLEMENT 03/16/22 insulin aspart (niacinamide)(U-100) 100 unit/mL(3 mL) subcutaneous pen (Fiasp FlexTouch U-100 Insulin) 16 unit subcut BID DIABETES 03/16/22 insulin aspart (niacinamide)(U-100) 100 unit/mL(3 mL) subcutaneous pen (Fiasp FlexTouch U-100 Insulin) 18 unit subcut DINNER DIABETES 03/16/22 pantoprazole 40 mg tablet,delayed release 40 mg PO DAILY ACID REFLUX 03/16/22 sucralfate 1 gram tablet 1 g PO TID 03/16/22 cholecalciferol (vitamin D3) 125 mcg (5,000 unit) tablet 125 mcg Check with primary doctor 08/05/22 furosemide 40 mg tablet 25 mg DAILY Check with primary doctor 08/05/22 metoprolol tartrate 25 mg tablet 12.5 mg BID Check with primary doctor 08/05/22 omeprazole 20 mg capsule,delayed release 20 mg PO DAILY Check with primary doctor 08/05/22 Hospital Course Operations None Procedures None Summary of Care Provided Minutes Spent on Discharge: 45 Hospital Course: Patient is a 77-year-old female with past medical history as outlined was admitted through the ED on 08/05/2022 with a complaint of altered mental status which started on the day of presentation. She was found to be unresponsive and confused. She lives with her older sister who was unable to take care of the patient. She had been started on Z-Temo for pneumonia at an outside hospital. On admission CT of the brain showed no acute intracranial pathology and chest x-ray showed no acute cardiopulmonary pathology. She was admitted and managed for acute metabolic encephalopathy. She was hydrated with IV fluids. Her mentation gradually improved and his symptoms were likely thought to be due to underlying dementia. Her blood pressure was markedly elevated on admission but this subsequently resolved. Hospital course was complicated by hypokalemia which resolved with aggressive replacement. Patient was evaluated by physical therapy and deemed as needing skilled care. She was discharged to the [facility] on 08/10/[facility]22. She is to follow-up with her primary care doctor within 1 to 2 weeks. Patient seen and examined prior to discharge. She had no active complaints and had an uneventful night. Review of systems otherwise negative. Labs and vitals reviewed. Home medication reviewed and reconciled. Physical Exam Const alert, oriented x3 and no apparent distress Constitutional Narrative: frail General Appearance: cooperative, comfortable and well kempt Exam Limitations: no limitations HEENT normocephalic, head/scalp atraumatic, hearing grossly normal bilaterally and moist oral mucous membranes Mouth: oral and palatal mucosa normal Eyes PERRL and EOMs intact bilaterally Neck no lymphadenopathy, supple and no JVD Lymph Lymphatic: no lymphadenopathy noted and no lymphedema noted Resp normal respiratory effort, normal air movement, no retractions, no use of accessory muscles and clear to auscultation bilaterally Cardio regular rate, regular rhythm, S1 normal heart sound, S2 normal heart sound and no murmurs GI normal to inspection, nondistended, normoactive bowel sounds, soft to palpation, non-tender and non-distended Extremity normal to inspection, full ROM, normal capillary refill, no clubbing, cyanosis or edema and no calf tenderness Skin no rashes or lesions noted General Skin Exam: no breakdown Neuro oriented x3, CN's II-XII intact bilaterally, moves all extremities, no focal motor deficits and no sensory deficits noted Sensorium / Orientation: awake, alert and oriented to person; Negative for oriented to place or oriented to time Speech: speech normal Psych thought process normal and cooperative Appearance: appropriate Weight / BMI Weight Weight: 158 lb 15.253 oz Body Mass Index (BMI) 29.9 ABG / Lab / Microbiology Data Result Diagrams: 08/10/22 04:43 08/10/22 04:43 Laboratory: Laboratory Results - last 24 hr 08/09/22 17:03: POC Glucose 119 H 08/09/22 23:09: POC Glucose 190 H 08/10/22 04:43: WBC 5.7, RBC 4.35, Hgb 12.4, Hct 39.4, MCV 90.6, MCH 28.5, MCHC 31.5 L, RDW Std Deviation 47.8 H, RDW Coeff of Kenneth 14.4, Plt Count 199, MPV 11.2, Immature Gran % (Auto) 0.300, Neut % (Auto) 62.5, Lymph % (Auto) 27.6, [place] % (Auto) 7.0, Eos % (Auto) 2.3, Baso % (Auto) 0.3, Absolute Neuts (auto) 3.6, Absolute Lymphs (auto) 1.58, Nucleated RBC % 0 08/10/22 04:43: Sodium 137, Potassium 3.2 L, Chloride 106, Carbon Dioxide 24.0, Anion Gap 7, BUN 24 H, Creatinine 1.15 H, Estim Creat Clear Calc 31.40, Est GFR (MDRD) Af Amer 59 L, Est GFR (MDRD) Non-Af 49 L, BUN/Creatinine Ratio 20.9 H, Glucose 123 H, Calcium 9.4 08/10/22 07:37: POC Glucose 174 H 08/10/22 11:07: POC Glucose 186 H Microbiology: Microbiology 08/10/22 11:55 Nasal Secretion SARS-CoV-2 Antigen (Rapid) - Final 08/04/22 20:04 Urine, Clean Catch Urine Culture - Final Mixed Gram Pos & Gram Neg Org D/C Instructions Discharge Diet: Low fat / Low cholesterol Discharge Activity: Return to Normal Activity Weight Bearing Status: Weight bearing as tolerated Call your doctor if you observe: Fever of 101 or Higher, Shortness of breath, Dizziness, Swelling in the ankles and Chest pain Meaningful Use Info Meaningful Use Diagnoses (Choose all that apply): None applicable Discharge Plan Admission Admit Date/Time: 08/05/22 00:11 Primary Reason for Your Visit: acute encephalopathy Attending Provider: Archana Umana Primary Care Provider: Akanksha Bolton Consulting Providers: Emeka Hays ; Yong Calix Discharge Orders/Prescriptions Prescriptions: Continued allopurinol 100 mg tablet 1 tab PO DAILY lisinopril 10 mg tablet 10 mg PO DAILY sertraline 50 mg tablet 50 mg PO QHS ferrous sulfate 325 MG tablet 325 mg PO DAILY atorvastatin 40 MG tablet 40 mg PO QHS famotidine 40 MG tablet 20 mg PO BID pregabalin 300 mg capsule 300 mg PO BID Levemir FlexTouch U-100 Insuln 100 unit/mL (3 mL) insulin pen 40 unit SUBCUT QHS docusate sodium 50 mg Capsule 50 mg PO DAILY clopidogrel 75 mg tablet 75 mg DAILY hydrocodone-acetaminophen 1 TABLET tablet 1 tab PO Q6H PRN PRN (Reason: Pain) 3 Days Qty: 10 0RF sucralfate 1 gram tablet 1 g PO TID Label Comments: TAKE 1 TABLET BY MOUTH THREE TIMES DAILY BEFORE MEAL(S) aspirin 81 mg Tablet,Delayed Release (Dr/Ec) 40.5 mg PO BID Fiasp FlexTouch U-100 Insulin 100 unit/mL (3 mL) insulin pen 16 unit SUBCUT BID Fiasp FlexTouch U-100 Insulin 100 unit/mL (3 mL) insulin pen 18 unit SUBCUT DINNER pantoprazole 40 mg tablet,delayed release (DR/EC) 40 mg PO DAILY Ensure Plus High Protein 0.08 gram-1.5 kcal/mL liquid 120 ml PO BID furosemide 40 mg tablet 25 mg DAILY metoprolol tartrate 25 mg tablet 12.5 mg BID cholecalciferol (vitamin D3) 125 mcg (5,000 unit) tablet 125 mcg Label Comments: TAKE 1 TABLET BY MOUTH ONCE DAILY omeprazole 20 mg Capsule,Delayed Release(Dr/Ec) 20 mg PO DAILY tramadol 50 mg tablet 50 mg PO Q6H PRN (Reason: pain) Qty: 14 0RF Referrals / Follow Up: Akanksha Bolton MD [Primary Care Provider] - Within 1 Week Disposition Disposition (needs filled in before D/C Order can be placed): [facility]-Way Facility Charges/Coding Visit Charges Inpatient E&M: 88417 Disch Hosp >30min
== END 2022-08-10 15:11 | disposition skilled nursing facility (03) | DRG 884 ==
LOC: ED 23:45 → MS3 08-05 00:41 → PCU 08-06 10:30
PROVIDERS: Admitting Provider Hospitalist; Emergency Provider Emergency Medicine; PCP Student in an Organized Health Care Education/Training Program; Visit Provider Student in an Organized Health Care Education/Training Program
DX: F03.90 Unspecified dementia, unspecified severity, without behavioral disturbance, psychotic disturbance, mood disturbance, and anxiety (principal); G93.41 Metabolic encephalopathy; J18.9 Pneumonia, unspecified organism; R13.19 Other dysphagia; E11.22 Type 2 diabetes mellitus with diabetic chronic kidney disease; E11.40 Type 2 diabetes mellitus with diabetic neuropathy, unspecified; Z79.4 Long term (current) use of insulin; I16.0 Hypertensive urgency; E78.5 Hyperlipidemia, unspecified; N18.9 Chronic kidney disease, unspecified; I12.9 Hypertensive chronic kidney disease with stage 1 through stage 4 chronic kidney disease, or unspecified chronic kidney disease; E87.6 Hypokalemia; Z66 Do not resuscitate; Z79.02 Long term (current) use of antithrombotics/antiplatelets; Z79.82 Long term (current) use of aspirin; Z79.899 Other long term (current) drug therapy; Z86.73 Personal history of transient ischemic attack (TIA), and cerebral infarction without residual deficits
CPT/HCPCS: 36415; 36600; 70450; 71046; 80048; 80053; 80061; 81001; 82140; 82607; 82803; 82962; 83605; 83735; 84145; 84443; 84484; 85025; 87086; 87088; 87426; 92526; 92610; 93306; 97110; 97116; 97162; 97166; 97530; 97535; 97802; 99285; J7030; Q9957; A4216; J2405

== ENCOUNTER → 2022-11-09 | Outpatient (CLI) | payer MEDICARE, MEDICAID, SELFPAY ==
--- NOTE | 2022-11-09 15:30 | NEURO ---
NCS and/or EMG Patient Report Ordering Doctor: ISMAEL HECTOR DATE OF SERVICE: 11/09/22 Elena presents electrodiagnostic testing of the lower limbs. She reports low back pain with intermittent radiation into the lower limbs. She reports numbness in the feet. Electrodiagnostic findings:Left peroneal motor nerve demonstrates normal distal latency and amplitude reduced conduction velocity. Right peroneal motor nerve demonstrates distal incision with reduced amplitude and reduced conduction velocity. Normal tibial motor response on the left side. Right tibial motor conduction velocity is decreased. Prolonged right tibial and peroneal F-wave. Prolonged H reflex bilaterally. Prolonged left sural latency. Absent right superficial peroneal response. Needle EMG testing reveals 1+ fibrillations in the right lumbar paraspinals, right gastrocnemius, right peroneus longus, right tibialis anterior. Polyphasic motor units are noted in the right peroneus longus and right gastrocnemius. Impression: This is an abnormal study in the lower limbs 1. Electrodiagnostic findings consistent with acute on chronic right L5 and S1 polyradiculopathy. 2. Electrodiagnostic findings suggestive of peripheral polyneuropathy, with motor and sensory nerve involvement. There is evidence of demyelination and axonal loss. Multi Select Codes Neurology Neurology Interp Codes: 48602-92 Musc test done w/n test comp (interp) (2) and 68195-54 Nrv cndj test 9-10 studies (interp)
== END | disposition home or self-care (01) ==
LOC: PSN 08:36
PROVIDERS: PCP Student in an Organized Health Care Education/Training Program; Referring Provider Nurse Practitioner Adult Health; Visit Provider Nurse Practitioner Adult Health
DX: M48.061 Spinal stenosis, lumbar region without neurogenic claudication (principal); M54.16 Radiculopathy, lumbar region
CPT/HCPCS: 95886; 95912

== ENCOUNTER 2023-04-11 10:33 | Emergency (ER) | payer MEDICARE, MEDICAID, SELFPAY ==
[2023-04-11 10:34] VITALS: BP 155/62; PULSE 60; RESP 18; TEMP 36.4; O2SAT 96; BMI 34.0
--- NOTE | 2023-04-11 10:47 | EDS_ITS ---
HPI HPI - Fall History of Present Illness Chief Complaint: Fall Informant: patient Narrative Narrative: 77-year-old female states she fell in the [facility] bathroom after slipping on some water on the floor. She had no prodromal symptoms. She slipped and fell and hit her head/face on the floor. She had no loss of consciousness, she has pain where she hit in the left forehead, and has a headache, she has no nausea or vomiting. She denies any focal neurologic symptoms or vision changes. She was not able to get up on her own and required help with EMS, however she and her friend states she is usually not able to get up on her own. She denies any recent illness. She denies pain other than where she hit her face. She takes aspirin and clopidogrel. She states she was on Eliquis long ago but was taken off of it and she does not know why she was on it. [facility] Medical History Adnexal mass Amaurosis fugax of right eye Anemia Arthritis Back problem Carpal tunnel syndrome Cataracts, bilateral Chronic kidney disease Closed head injury (12/17/20) Colon cancer Concussion (12/17/20) Controlled type 2 diabetes mellitus with insulin therapy Dysphagia Essential (primary) hypertension GERD (gastroesophageal reflux disease) Goiter Gout History of CVA (cerebrovascular accident) (01/06/20) History of pulmonary embolus (PE) (12/2017) Hyperlipemia IBS (irritable bowel syndrome) Iron deficiency anemia due to chronic blood loss Neuropathy Osteoarthritis of right knee Osteoporosis PUD (peptic ulcer disease) Seasonal allergies 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) Stroke Syncope Thyroid goiter Thyroid nodule Home Medications allopurinol 100 mg tablet 1 tab PO DAILY gout 08/15/17 [History Last Taken 03/15/22] ferrous sulfate 325 mg (65 mg iron) tablet 325 mg PO DAILY supplement 12/13/17 [History Last Taken 03/16/22] lisinopril 10 mg tablet 10 mg PO DAILY blood pressure 06/16/20 [History Last Taken 03/16/22] sertraline 50 mg tablet 50 mg PO QHS depression 06/16/20 [History Last Taken 03/15/22] atorvastatin 40 mg tablet 40 mg PO QHS cholesterol 07/15/20 [History Last Taken 03/15/22] famotidine 40 mg tablet 20 mg PO BID acid reflux 07/15/20 [History Last Taken 03/16/22] pregabalin 300 mg capsule 300 mg PO BID nerve pain 03/02/21 [History Last Taken 03/16/22] insulin detemir U-100 100 unit/mL (3 mL) subcutaneous pen (Levemir FlexTouch U- 100 Insulin) 40 unit subcut QHS diabetes 04/12/21 [History Last Taken 03/15/22] docusate sodium 50 mg capsule 50 mg PO DAILY CONSTIPATION 01/16/22 [History Last Taken 03/16/22] clopidogrel 75 mg tablet 75 mg DAILY BLOOD THINNER 02/16/22 [History Last Taken 03/16/22] tramadol 50 mg tablet 50 mg PO Q6H PRN pain #14 tabs 02/24/22 [Rx Last Taken 03/16/22] hydrocodone-acetaminophen 5-325mg 5mg-325mg 1 tab PO Q6H PRN PRN Pain 3 days #10 TABLETS 03/14/22 [Rx Last Taken Unknown] aspirin 81 mg tablet,delayed release 40.5 mg PO BID heart health 03/16/22 [History Last Taken 03/16/22] food supplemt, lactose-reduced 0.08 gram-1.5 kcal/mL oral liquid (Ensure Plus High Protein) 120 ml PO BID SUPPLEMENT 03/16/22 [History Last Taken 03/16/22] insulin aspart (niacinamide)(U-100) 100 unit/mL(3 mL) subcutaneous pen (Fiasp FlexTouch U-100 Insulin) 16 unit subcut BID DIABETES 03/16/22 [History Last Taken 03/16/22] insulin aspart (niacinamide)(U-100) 100 unit/mL(3 mL) subcutaneous pen (Fiasp FlexTouch U-100 Insulin) 18 unit subcut DINNER DIABETES 03/16/22 [History Last Taken 03/15/22] pantoprazole 40 mg tablet,delayed release 40 mg PO DAILY ACID REFLUX 03/16/22 [History Last Taken 03/16/22] sucralfate 1 gram tablet 1 g PO TID 03/16/22 [History Last Taken 03/16/22] cholecalciferol (vitamin D3) 125 mcg (5,000 unit) tablet 125 mcg Check with primary doctor 08/05/22 [History Last Taken Unknown] furosemide 40 mg tablet 25 mg DAILY Check with primary doctor 08/05/22 [History Last Taken Unknown] metoprolol tartrate 25 mg tablet 12.5 mg BID Check with primary doctor 08/05/22 [History Last Taken Unknown] omeprazole 20 mg capsule,delayed release 20 mg PO DAILY Check with primary doctor 08/05/22 [History Last Taken Unknown] Allergy/AdvReac Type Severity Reaction Status Date / Time duloxetine [From Cymbalta] AdvReac Rash Verified 04/11/23 10:34 linagliptin [From Tradjenta] AdvReac Hives Verified 04/11/23 10:34 oxycodone [From OxyContin] AdvReac Rash Verified 04/11/23 10:34 Family History Unknown No problems noted. Father Alcoholism Arthritis Diabetes Hypertension Kidney disease Sister Asthma Colon cancer possibly ovarian but unsure Daughter Depression Cancer daughter 1 - colon, cervical, melanoma daughter 2 - cervical Mother Diabetes Kidney disease Grandmother Diabetes maternal Family History no significant family his Surgical History H/O right hemicolectomy H/O tubal ligation History of back surgery History of carpal tunnel release History of cataract surgery History of knee replacement History of loop recorder (12/12/19) History of robot-assisted laparoscopic hysterectomy (10/02/19) History of salpingo-oophorectomy (10/02/19) Hx of appendectomy Hx of cholecystectomy Social History household members: none housing: other details: Lives at home alone with an aide 4 times per week number of children: 5 pets and animals: Yes pets and animals: cat(s) Smoking Status: Never smoker second hand exposure: No alcohol intake: never substance use type: does not use ROS ROS ED Constitutional Constitutional ED: Denies chills or fever(s) Eyes Eyes: Denies blurry vision, change in vision or diplopia ENT ENT ED: Reports facial pain; Denies ear pain, epistaxis, nasal trauma, rhinorrhea or vertigo Cardiovascular Cardiovascular: Denies chest pain or palpitations Respiratory/Chest Respiratory/Chest: Denies cough or dyspnea Gastrointestinal Gastrointestinal: Denies abdominal pain, diarrhea, melena, nausea or vomiting Genitourinary Genitourinary ED: Denies dysuria or hematuria Musculoskeletal Musculoskeletal: Denies back pain, extremity pain or neck pain Integumentary Denies abscess, Abrasions, laceration or rash Neurologic Neurologic: Reports headache(s); Denies confusion, paresthesias or weakness Hematologic/Lymphatic Hematologic/Lymphatic: Reports easy bleeding and easy bruising EXAM Physical Exam Const Vital Signs: 04/11/23 10:34 04/11/23 11:09 Temperature 97.6 F L Temperature Source Temporal Pulse Rate 60 Respiratory Rate 18 Respiratory Effort Normal Blood Pressure 155/62 H Blood Pressure Mean 93 Pulse Ox 96 Oxygen Delivery Method Room Air Positive well nourished and well developed General Appearance ED: well developed and NAD HEENT Reports TM's clear and nasal mucous membranes and turbinates normal HEENT Narrative: Tender contusion without crepitance or boggy hematoma just lateral to the left eye involving the most lateral portion of the superior orbital brim, the zygomatic arch is nontender and intact. Midface is stable and nontender otherwise. atraumatic Face and Sinus: Negative for facial tenderness Tympanic Membrane ED: Yes TM's clear Eyes PERRL and EOMs intact bilaterally Eyes Narrative: No proptosis or enophthalmos or evidence of globe injury. Visual Acuity: other Other Details: no entrapment or pain with extraocular movements Neck full ROM and supple General: Negative for tenderness Chest Wall inspection of chest normal and palpation of chest normal Chest: symmetrical chest wall rise; Negative for crepitus or tenderness Resp normal respiratory effort and clear to auscultation bilaterally Percussion: other equal BS bilat Cardio no murmurs Rate: regular rate Rhythm: regular rhythm GI normal to inspection, nondistended, normoactive bowel sounds, soft to palpation and non-tender Back/Spine normal ROM Cervical Spine: Negative for cervical spine tenderness Thoracic Spine / Upper Back: Negative for thoracic spinal tenderness Lumbar Spine / Lower Back: Negative for lumbar spinal tenderness Extremity normal to inspection and full ROM General Extremety ED: Negative for tenderness Neuro oriented x3, CN's II-XII intact bilaterally, moves all extremities, no focal motor deficits and no sensory deficits noted Yessi Coma Scale: document GCS findings Spontaneous Obeys Commands Oriented 15 Sensorium / Orientation: awake and alert Psych mental status grossly normal and thought process normal Skin no wounds Lesions: no lesions Rashes: no rashes MDM MDM MDM Narrative Medical decision making narrative: CT of the head was obtained in order to rule out intracranial injury, I reviewed the images and report which I agree with, negative for anything acute. Patient reassured given an ice pack and offered analgesics and will be discharged with appropriate instructions. Radiography Diagnostic Testing: Clinical Impression(s) from Imaging Studies Brain CT 04/11/23 10:47 IMPRESSION: Chronic involutional changes of the brain. Electronically Signed: Fortino Rangel MD at 11:27 EST , Discharge Plan Triage Chief Complaint: Fall ED Provider: Nadeem Marion Dx/Rx/DC Orders Clinical Impression: Contusion of face, Fall from slipping on wet surface, Closed head injury without loss of consciousness Instructions: Black Eye Prescriptions: No Action allopurinol 100 mg tablet 1 tab PO DAILY lisinopril 10 mg tablet 10 mg PO DAILY sertraline 50 mg tablet 50 mg PO QHS ferrous sulfate 325 MG tablet 325 mg PO DAILY atorvastatin 40 MG tablet 40 mg PO QHS famotidine 40 MG tablet 20 mg PO BID pregabalin 300 mg capsule 300 mg PO BID Levemir FlexTouch U100 Insulin 100 unit/mL (3 mL) insulin pen 40 unit SUBCUT QHS docusate sodium 50 mg Capsule 50 mg PO DAILY clopidogrel 75 mg tablet 75 mg DAILY hydrocodone-acetaminophen 1 TABLET tablet 1 tab PO Q6H PRN PRN (Reason: Pain) 3 Days Qty: 10 0RF sucralfate 1 gram tablet 1 g PO TID Patient Comments: TAKE 1 TABLET BY MOUTH THREE TIMES DAILY BEFORE MEAL(S) aspirin 81 mg Tablet,Delayed Release (Dr/Ec) 40.5 mg PO BID Fiasp FlexTouch U-100 Insulin 100 unit/mL (3 mL) insulin pen 16 unit SUBCUT BID Fiasp FlexTouch U-100 Insulin 100 unit/mL (3 mL) insulin pen 18 unit SUBCUT DINNER pantoprazole 40 mg tablet,delayed release (DR/EC) 40 mg PO DAILY Ensure Plus High Protein 0.08 gram-1.5 kcal/mL liquid 120 ml PO BID furosemide 40 mg tablet 25 mg DAILY metoprolol tartrate 25 mg tablet 12.5 mg BID cholecalciferol (vitamin D3) 125 mcg (5,000 unit) tablet 125 mcg Patient Comments: TAKE 1 TABLET BY MOUTH ONCE DAILY omeprazole 20 mg Capsule,Delayed Release(Dr/Ec) 20 mg PO DAILY tramadol 50 mg tablet 50 mg PO Q6H PRN (Reason: pain) Qty: 14 0RF Primary Care Provider: Akanksha Bolton Referrals: Akanksha Bolton MD [Primary Care Provider] - As Needed Disposition Disposition: Home, Self Care
--- NOTE | 2023-04-11 10:47 | CT_ITS ---
STUDY: CT BRAIN WITHOUT CONTRAST REASON FOR EXAM: Female, 77 years old. Head injury due to a fall. RADIATION DOSAGE (If Supplied By Facility): CTDIvol = ( 44.99 ) mGy, DLP = ( 745.49 ) mGycm TECHNIQUE: Transaxial CT imaging of the brain was performed without administration of intravenous contrast material. Individualized dose optimization techniques were used for this CT. COMPARISON: Comparison is made with prior study dated August 04, 2022. FINDINGS: Normal soft tissue structures. Normal calvarium. There is mild cerebral atrophy with widening of the extra-axial spaces and ventricular dilatation. There are areas of decreased attenuation within the white matter tracts of the supratentorial brain, consistent with microvascular disease changes. Stable small lacunar in the insular cortex of the right temporal lobe. Normal brainstem. Stable encephalomalacia in the anterior lateral aspect of the left cerebellar hemisphere. There is no intracranial hemorrhage. There are no findings of an acute ischemic infarction. Atherosclerotic calcification of the vertebral arteries as well as the cavernous portions of the internal carotid arteries bilaterally. Normal visualized paranasal sinuses. CT/Brain/Head without Contrast IMPRESSION: Chronic involutional changes of the brain. Electronically Signed: Fortino Rangel MD at 11:27 EST ,
[2023-04-11] MEDS: Acetaminophen 500 MG Tablet 1000 MG PO (11:44)
== END 2023-04-11 11:57 | disposition home or self-care (01) ==
PROVIDERS: Emergency Provider Emergency Medicine; PCP Student in an Organized Health Care Education/Training Program; Referring Provider Emergency Medicine; Visit Provider Emergency Medicine
DX: S00.83XA Contusion of other part of head, initial encounter (principal); E11.40 Type 2 diabetes mellitus with diabetic neuropathy, unspecified; E11.22 Type 2 diabetes mellitus with diabetic chronic kidney disease; N18.9 Chronic kidney disease, unspecified; W01.0XXA Fall on same level from slipping, tripping and stumbling without subsequent striking against object, initial encounter; Z86.73 Personal history of transient ischemic attack (TIA), and cerebral infarction without residual deficits; Z86.711 Personal history of pulmonary embolism
CPT/HCPCS: 70450; 99284

== ENCOUNTER 2023-10-25 07:59 | Day surgery (SDC) | payer MEDICARE, MEDICAID, SELFPAY ==
[2023-10-25] VITALS (9 sets, daily range): BP systolic 107–156; BP diastolic 58–85; PULSE 64–76; RESP 14–16; TEMP 36.3–37.2; O2SAT 96–100; BMI 30.6
--- NOTE | 2023-10-25 08:29 | PCM.PRE.AN2 ---
ASA Classification* ASA Classification ASA Classification: 3 Assessment & Plan Anesthesia* Anesthesia Assessment Anesthesia Assessment: Discussed sedation and/or anesthesia options, risks, benefits, and alternatives with patient/parents/legal guardian/POA. Questions invited. The patient/parents/legal guardian/POA seems to understand and agrees to proceed with anesthesia plan. Reviewed the physical assessment, medical history, allergy history and patient home medications list prior to surgery/procedure/anesthetic and documented any changes. Performed airway and anesthesia risk assessments. 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 When Was Last Pacemaker Check loop recorder 02/17/22 20:33 QUESTION #4 FULL TEXT: You/Your Family Experience fever (hyperthermia) with Anesthesia Last Oral Intake Last Oral intake: Last Oral Intake NPO since Meds taken in AM with sips of water? 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: PONV - food service hotel runner Female Yes 10/09/23 11:24 HX of Motion Sickness No 10/09/23 11:24 HX of N/V After Surgery No 10/09/23 11:24 Non-Smoker Yes 10/09/23 11:24 Duration of Surgery greater No 10/09/23 11:24 than 60 minutes Number of Risk Factors 2 10/09/23 11:24 PONV Score Moderate Risk 10/09/23 11:24 Height & Weight Height & Weight: Anesthesia: Height & Weight Height 5 ft 1 in 04/11/23 10:34 Respiratory Assessment Respiratory Assessment - food service hotel runner: Respiratory Tract Infection Hx - food service hotel runner Hx Respiratory Tract Infection No 10/09/23 11:24 STOP Sleep Apnea STOP Sleep Apnea - food service hotel runner: STOP Sleep Apnea - food service hotel runner Hx Hypertension Yes 10/09/23 11:24 Hx Sleep Apnea No 10/09/23 11:24 CPAP BIPAP Do you snore loudly (louder No 10/09/23 11:24 than talking or can be heard Do you often feel tired/ No 10/09/23 11:24 fatigued/ sleepy during daytime? Has anyone observed you stop No 10/09/23 11:24 breathing during sleep? STOP Results Negative 10/09/23 11:24 QUESTION #5 FULL TEXT : Do you snore loudly (louder than talking or can be heard through closed doors)? 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 Specify any problems Hx of Preganancy in last 3 No 10/09/23 11:24 Months Nurse Filling Out Transfusion VCHRISTIN 10/09/23 11:24 & Questions: Date: 10/09/23 10/09/23 11:24 Time: 11:24 10/09/23 11:24 Patient unable to answer at this time (ie. confused, unrespo /Reproduction History /Reproductive History - food service hotel runner: /Reproductive Hx- food service hotel runner Hx Now No 10/09/23 11:24 Gestational Age (in weeks): EDC: Hx Hx Para Hx Section SAB No 10/09/23 11:24 Active Medications Active Medications: Current Medications Generic Name Dose Route Start Last Admin Trade Name Freq PRN Reason Stop Dose Admin Lactated Ringer's 1,000 mls @ 15 mls/hr 10/25/23 08:15 IV .Q48H [facility] Anesthesia Focused Assessment* Oxygen Delivery Method: Room Air Airway Assessment Mouth opens: 1 cm Mallampati Score: IV Teeth Condition: Dentures (Dentures are out) Neck Range of motion (ROM): Limited ROM (Severely limited range of motion) Pertinent Findings ECHO Pertinent Findings:: Echo done August 06, 2022 showed an ejection fraction of 65% Focused Labs Anesthesia Preop lab: CBC WBC 5.7 K/mm3 (4.4-11.0) 08/10/22 04:43 RBC 4.35 M/mm3 (4.2-5.4) 08/10/22 04:43 Hgb 12.4 g/dL (12.0-15.0) 08/10/22 04:43 Hct 39.4 % (37-47) 08/10/22 04:43 Plt Count 199 K/mm3 (150-450) 08/10/22 04:43 CHEMISTRY Potassium 3.2 mmol/L (3.5-5.1) L 08/10/22 04:43 Sodium 137 mmol/L (136-145) 08/10/22 04:43 Magnesium 1.7 mg/dL (1.6-2.6) 08/08/22 09:15 Phosphorus 5.2 mg/dL (2.5-4.9) H 02/19/22 05:35 BUN 24 mg/dL (7-18) H 08/10/22 04:43 Creatinine 1.15 mg/dL (0.55-1.02) H 08/10/22 04:43 Glucose 123 mg/dL (74-106) H 08/10/22 04:43 TSH 1.69 uIU/mL (0.358-3.74) 08/05/22 06:30 COAG PT 15.3 SECONDS (11.7-14.9) H 02/16/22 05:07 Review of Systems (Anesthesia) ROS Narrative System reviewed and no additional complaints, except as documented. 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Recorded ?Last Taken ?Type allopurinol 100 mg tablet 1 tab PO DAILY gout 08/15/17 03/15/22 History ferrous sulfate 325 mg (65 mg 325 mg PO DAILY supplement 12/13/17 03/16/22 History iron) tablet lisinopril 10 mg tablet 10 mg PO BID blood pressure 06/16/20 03/16/22 History sertraline 50 mg tablet 50 mg PO QHS depression 06/16/20 03/15/22 History pregabalin 300 mg capsule 300 mg PO BID nerve pain 03/02/21 03/16/22 History clopidogrel 75 mg tablet 75 mg PO DAILY BLOOD THINNER 02/16/22 03/16/22 History aspirin 81 mg tablet,delayed 81 mg PO DAILY heart health 03/16/22 03/16/22 History release pantoprazole 40 mg tablet,delayed 40 mg PO DAILY ACID REFLUX 03/16/22 03/16/22 History release cholecalciferol (vitamin D3) 125 125 mcg PO DAILY Check with 08/05/22 Unknown History mcg (5,000 unit) tablet primary doctor metoprolol tartrate 25 mg tablet 25 mg PO BID Check with primary 08/05/22 Unknown History doctor acetaminophen 325 mg capsule 650 mg PO Q4H PRN pain 10/09/23 Unknown History clonidine HCl 0.1 mg tablet 0.1 mg PO Q8H 10/09/23 Unknown History fluticasone propionate 50 2 spray intranasal DAILY PRN 10/09/23 Unknown History mcg/actuation nasal allergy symptoms spray,suspension (24 Hour Allergy Relief) guaifenesin 600 mg tablet, 600 mg PO BID PRN congestion 10/09/23 Unknown History extended release 12 hr (Mucinex) insulin aspart U-100 100 unit/mL 2 unit subcut TID 10/09/23 Unknown History (3 mL) subcutaneous pen (Novolog FlexPen U-100 Insulin aspart) insulin glargine 100 unit/mL (3 15 unit subcut QHS 10/09/23 Unknown History mL) subcutaneous pen (Basaglar KwikPen U-100 Insulin) potassium chloride 20 mEq 20 meq PO DAILY 10/09/23 Unknown History tablet,extended release(part/cryst) tramadol 50 mg tablet 50 mg PO BID pain 10/09/23 Unknown History trazodone 50 mg tablet 50 mg PO QHS 10/09/23 Unknown History Allergy/AdvReac Type Severity Reaction Status Date / Time sitagliptin (From Januvia) Allergy Severe NEEDS Verified 10/25/23 08:23 FOLLOW-UP duloxetine (From Cymbalta) AdvReac Rash Verified 10/25/23 08:23 linagliptin (From Tradjenta) AdvReac Hives Verified 10/25/23 08:23 oxycodone (From OxyContin) AdvReac Rash Verified 10/25/23 08:23 Family History Unknown No problems noted. Father Alcoholism Arthritis Diabetes Hypertension Kidney disease Sister Asthma Colon cancer possibly ovarian but unsure Daughter Depression Cancer daughter 1 - colon, cervical, melanoma daughter 2 - cervical Mother Diabetes Kidney disease Grandmother Diabetes maternal Surgical History Hx of hysterectomy H/O right hemicolectomy History of loop recorder (12/12/19) History of knee replacement History of cataract surgery History of carpal tunnel release History of robot-assisted laparoscopic hysterectomy (10/02/19) History of salpingo-oophorectomy (10/02/19) Hx of appendectomy H/O tubal ligation Hx of cholecystectomy History of back surgery Social History household members: none housing: other details: Lives at home alone with an aide 4 times per week number of children: 5 pets and animals: Yes pets and animals: cat(s) Smoking Status: Never smoker second hand exposure: No alcohol intake: never substance use type: does not use
--- NOTE | 2023-10-25 08:45 | COLBX_PTH ---
PATIENT: LADI CUELLO LOC: EN U#:[id number] AGE/SX: 78/F ROOM: RE10/25/[address]: Dr. Garrett Avery DO : 1945 BED: DIS: 10/25/2023 SPEC #: [id number] RECD: 10/25/23 13:00 STATUS: IHSAN KP #: [id number] RAGHU: 10/25/23 08:[address]: Garrett Avery DEPT: SURGICAL PATHOLOGY RECD BY: Heather Gifford ENTERED: 10/25/23 14:07 SP TYPE: COLON BX OTHR DR: Thu Primary Care Phys Tissues: Sigmoid colon biopsy Procedures: Surgery Specimen Level IV HEADER OPERATION: Colonoscopy, bipolar probe, polypectomy PRE-OP DIAGNOSIS: Colon cancer, abdominal pain TISSUE SUBMITTED: Sigmoid colon polyp MICROSCOPIC DIAGNOSIS Sigmoid colon polyp, biopsy: Polypoid fragments of benign colonic mucosa. See comment. DAVID/ 10/26/2023 COMMENT Focal changes suggest an inflammatory polyp. Neither hyperplastic nor adenomatous change is identified. Clinical correlation is suggested. MICROSCOPIC DESCRIPTION Slides are reviewed. GROSS DESCRIPTION Received in fixative is one container labeled with the patient's name and designated Sigmoid colon polyp. The specimen consists of one irregular fragment of light lambert soft tissue that measures 0.5 x 0.5 x 0.1 cm. The specimen is totally submitted in one cassette. DAVID/ 10/25/2023 TC:5 CPT:20109
--- NOTE | 2023-10-25 08:55 | PCM.HP.BLA ---
History and Physical Date of Admission: 10/25/23 [facility] Complaint: Abdominal pain Details: LADI CUELLO, is a 78 F who presents to the office today for follow up. OV 5.22.24 pt reports left abdominal aching pain; pt's daughter reports that pt has a US done in August and a hard mass was found in her colon. Pt reports a dark green, soft bm once a week. Pt reports that she has HB and trouble swallowing due to her goiter. ROS Const Constitutional: Positive for frequent falls, headache(s), weakness and weight change (weight gain); No fatigue or fever(s) ENT ENT: Positive for headache(s) and difficulty swallowing Cardio Cardiology: Positive for leg pain with exertion Gastro GI: Positive for abdominal pain, bloating, change in bowel habits, constipation, diarrhea, heartburn, difficulty swallowing, excessive flatus and nausea/dyspepsia; No belching, change in stool character, coffee ground emesis, cramping, feeling full early, incontinent of stools, Vomiting blood/hematemesis, Blood in stool, loose stools, Black,tarry stools, pain with swallowing, vomiting or other Musc Musculoskeletal: Positive for joint pain, back pain, joint swelling, muscle weakness, numbness, stiffness, tingling, Arthritis, leg pain at night and leg pain with exertion Skin Skin: No yellowing of the eye or itchy eyes Neuro Neurology: Positive for weakness, frequent falls, headache(s), numbness, tingling and tremor(s) Psych Psychiatric: No anxiety and Positive for depression Endo Endocrine: Positive for weight change (weight gain); No fatigue Aller/Imm Allergy/Immunologic: No itchy eyes Trae/Lymp Hematologic/Lymphatic: Positive for easy bruising; No easy bleeding Exam Const General: cooperative and comfortable Nutritional Appearance: average body habitus and well nourished [facility] Head: normal to inspection Ears: hearing grossly normal bilaterally Nose: external nose normal Face and sinus: normal facial exam Mouth: oral mucosae normal Throat: posterior oropharynx normal Eyes General: appearance normal, both eyes and all related structures Neck Neck: normal visual inspection Chest Chest palpation & inspection: normal inspection of the chest and normal palpation of entire chest wall Resp Effort & Inspection: normal respiratory effort Auscultation: Bilateral: Clear to Auscultation Cardio Palpation: normal PMI Rate: regular rate Rhythm: regular rhythm GI Inspection: normal to inspection Auscultation: normal bowel sounds Percussion: normal to percussion Palpation: no hepatosplenomegaly Skin General: no rashes or lesions noted Neuro General: patient alert Extrem General: normal to inspection Psych Affect: normal affect Assessment and Plan Assessment and Plan (1) Colon cancer: Status: Acute Plan: 76-year-old female with stage II (T3, N0, M0) adenocarcinoma of the right colon status post right hemicolectomy February 2022. Disease presented with anemia and abdominal pain. Right pleural effusion small/trace not amenable to tap was noted on CT February 16, 2022 suspect medical rather than metastatic. Chronic comorbid conditions: Hypertension, dyslipidemia, atherosclerotic arterial disease, diabetes, chronic acid reflux and history of peptic ulcer disease, chronic iron deficiency anemia, recent memory loss probably age-related dementia, chronic neuropathy and chronic lower extremities edema. Plan: Based on the most recent NCCN guidelines: 1. Systemic adjuvant therapy is not indicated. 2. Surveillance, colonoscopy was advised at 6 months. However she canceled her procedure. Her daughter is with her today and has a good understanding regarding this process. physical exam and CEA every 3 months for the first 2 years and less frequently thereafter. 3. Continue oral iron supplement at least an additional 3 months, obtain baseline blood counts B12 and iron profile today and in 3 months. 4. She has a positive family history of colon cancer (daughter in her mid 40s) and therefore screening colonoscopy advised for all first-degree relatives starting at age 40. (2) Iron deficiency anemia due to chronic blood los I have examined the patient and the H&P has been reviewed. There are no clinical changes since date of exam.
--- NOTE | 2023-10-25 09:34 | NURSING ---
IV ATTEMPTED BY 3 DIFFERENT NURSES, Sofiya ISABEL RN CALLED TO START IV, IV INITIATED.
[2023-10-25 09:42] LABS: Bedside Glucose 109 mg/dL (74-106)
--- NOTE | 2023-10-25 10:24 | PCM.POST.ANE ---
Anesthesia: Postop Eval I Current Vital Signs Temperature: 98.8 F Pulse Rate: 68 Blood Pressure: 113/63 Respiratory Rate: 14 Pulse Ox: 99 Oxygen Delivery Method: Room Air Assessment Airway patent: Yes Spontaneous unlabored respirations: Yes Mental status: Asleep nausea: No Vomiting: No Anesthesia Complication: No Fluid Hydration Crystalloid volume administer (ml): 400 Total IV fluid infused: 400 Progress Note Anesthesia document: Postop Eval 1 completed: Yes
--- NOTE | 2023-10-25 10:27 | OP.COLON_ITS ---
Patient Name: Elena Mccabe Procedure Date: 10/25/2023 8:55 AM Date of : 1945 Age: 78 Procedure: Colonoscopy Indications: High risk colon cancer surveillance: Personal history of colon cancer Providers: Garrett Avery DO Medicines: Monitored Anesthesia Care Patient Profile: This is a 78 year old female. Refer to note in patient chart for documentation of history and physical. Last Colonoscopy: within the past 3 years. Complications: No immediate complications. Procedure: Pre-Anesthesia Assessment: - Prior to the procedure, a History and Physical was performed, and patient medications and allergies were reviewed. The risks and benefits of the procedure and the sedation options and risks were discussed with the patient. All questions were answered and informed consent was obtained. Patient identification and proposed procedure were verified by the physician in the pre-procedure area. Mental Status Examination: alert and oriented. Airway Examination: normal oropharyngeal airway and neck mobility. Respiratory Examination: clear to auscultation. CV Examination: normal. Prophylactic Antibiotics: The patient does not require prophylactic antibiotics. Prior Anticoagulants: The patient has taken no anticoagulant or antiplatelet agents. ASA Grade Assessment: III - A patient with severe systemic disease. After reviewing the risks and benefits, the patient was deemed in satisfactory condition to undergo the procedure. The anesthesia plan was to use monitored anesthesia care (MAC). This assessment was completed before the administration of sedation. After I obtained informed consent, the scope was passed under direct vision. Throughout the procedure, the patient's blood pressure, pulse, and oxygen saturations were monitored continuously. The Colonoscope was introduced through the anus and advanced to the cecum, identified by appendiceal orifice and ileocecal valve. The colonoscopy was performed without difficulty. The patient tolerated the procedure well. The quality of the bowel preparation was fair. The appendiceal orifice was photographed. Scope In: 10:00:06 AM Scope Withdrawal Time 0 hours 9 minutes 24 seconds Scope Out: 10:18:44 AM Total Procedure Duration Time 0 hours 18 minutes 38 seconds Findings: Hemorrhoids were found on perianal exam. A few small localized angiodysplastic lesions with bleeding were found at the hepatic flexure. Coagulation for hemostasis using heater probe was successful. Estimated blood loss was minimal. A few small and large-mouthed diverticula were found in the recto-sigmoid colon and sigmoid colon. Retroflexion in the rectum was not performed due to unusual anatomy. An area of mildly congested mucosa was found in the sigmoid colon, in the transverse colon and in the ascending colon. Biopsies were taken with a cold forceps for histology. Verification of patient identification for the specimen was done. Estimated blood loss was minimal. There was evidence of a prior end-to-side ileo-colonic anastomosis in the ascending colon. This was patent. Stool was found in the sigmoid colon, in the descending colon, in the transverse colon and at the hepatic flexure. Impression: - Preparation of the colon was fair. - Hemorrhoids found on perianal exam. - A few bleeding colonic angiodysplastic lesions. Treated with a heater probe. - Diverticulosis in the recto-sigmoid colon and in the sigmoid colon. - Congested mucosa in the sigmoid colon, in the transverse colon and in the ascending colon. Biopsied. - Patent end-to-side ileo-colonic anastomosis. - Stool in the sigmoid colon, in the descending colon, in the transverse colon and at the hepatic flexure. Recommendation: - Discharge patient to home. - Resume previous diet. - Continue present medications. - Await pathology results. - Repeat colonoscopy in 1 year for surveillance. Procedure Code(s): --- Professional --- 87382, 59, Colonoscopy, flexible; with control of bleeding, any method 37583, Colonoscopy, flexible; with biopsy, single or multiple CPT copyright 2021 [employer]. All rights reserved. The codes documented in this report are preliminary and upon head buyer tobacco review may be revised to meet current compliance requirements. Garrett Avery DO 10/25/2023 10:27:32 AM This report has been signed electronically. Number of Addenda: 0 Note Initiated On: 10/25/2023 8:55 AM
--- NOTE | 2023-10-25 10:28 | OP.CCLET_ITS ---
10/25/2023 Akanksha Bolton Md Re : Colonoscopy procedure for Elena Mccabe Dear Che This procedure was performed on Wednesday, October 25, 2023. My impressions and recommendations are as follows: Impressions : - Preparation of the colon was fair. - Hemorrhoids found on perianal exam. - A few bleeding colonic angiodysplastic lesions. Treated with a heater probe. - Diverticulosis in the recto-sigmoid colon and in the sigmoid colon. - Congested mucosa in the sigmoid colon, in the transverse colon and in the ascending colon. Biopsied. - Patent end-to-side ileo-colonic anastomosis. - Stool in the sigmoid colon, in the descending colon, in the transverse colon and at the hepatic flexure. Recommendations : - Discharge patient to home. - Resume previous diet. - Continue present medications. - Await pathology results. - Repeat colonoscopy in 1 year for surveillance. My findings are described in the full procedure note, which is enclosed. If I can be of further assistance, please feel free to contact me at . Sincerely, Garrett Avery DO 10/25/2023 10:27:32 AM This report has been signed electronically.
--- NOTE | 2023-10-25 12:13 | PCM.POSTANE2 ---
Anesthesia Postop Eval I Sum Postop Eval Completion status Anesthesia document: Postop Eval 1 completed: Yes Anesthesia Postop Eval I Summary Anesthesia Postop Eval I Summary: Anesthesia Postop Eval I: Assessment Summary Airway patent Yes 10/25/23 10:31 [email or web address] Spontaneous unlabored Yes 10/25/23 10:31 [email or web address] respirations Mental status Asleep 10/25/23 10:31 [email or web address] nausea No 10/25/23 10:31 [email or web address] Vomiting No 10/25/23 10:31 [email or web address] Anesthesia Postop Eval I: Fluid Summary Crystalloid volume administer 400 10/25/23 10:31 [email or web address] (ml) Colloids volume administered ( ml) Blood Product volume administered (ml) Total IV fluid infused 400 10/25/23 10:31 [email or web address] Anesthesia Postop Eval I: Summary Notes Anesthesia Complication No 10/25/23 10:31 [email or web address] Anesthesia Complication Comment: Post-operative progress note Anesthesia: Postop Eval II Evaluation Mental status: Awake Pain Level: 0 nausea: No Vomiting: No Complications Anesthesia Complication: No
== END 2023-10-25 11:32 | disposition home or self-care (01) ==
LOC: EN 08:04 → AC 08:07
PROVIDERS: Referring Provider Internal Medicine Gastroenterology; Visit Provider Internal Medicine Gastroenterology
PROC: 0DJD8ZZ Inspection of Lower Intestinal Tract, Via Natural or Artificial Opening Endoscopic (ICD-10-PCS; CPT 45378; principal; 2023-10-25 08:40)
DX: Z12.11 Encounter for screening for malignant neoplasm of colon (principal); E11.40 Type 2 diabetes mellitus with diabetic neuropathy, unspecified; Z85.038 Personal history of other malignant neoplasm of large intestine; K57.30 Diverticulosis of large intestine without perforation or abscess without bleeding; K64.4 Residual hemorrhoidal skin tags; Z90.49 Acquired absence of other specified parts of digestive tract; E78.5 Hyperlipidemia, unspecified; K21.9 Gastro-esophageal reflux disease without esophagitis; D50.0 Iron deficiency anemia secondary to blood loss (chronic); Z87.19 Personal history of other diseases of the digestive system; K55.21 Angiodysplasia of colon with hemorrhage; Z98.0 Intestinal bypass and anastomosis status; K63.5 Polyp of colon; Z79.82 Long term (current) use of aspirin; Z79.899 Other long term (current) drug therapy
CPT/HCPCS: 45380; 45382; 82962; 88305; J7120; J2405